=== PATIENT | male | born 1965 | race Caucasian/White ===

== ENCOUNTER 2018-04-02 22:40 | Emergency (ER) | payer MEDICARE, SELFPAY ==
[2018-04-02 22:41] VITALS: BP 182/87; PULSE 93; RESP 16; TEMP 35.9; O2SAT 96; BMI 34.0
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
[2018-04-02 23:31] LABS: Bedside Glucose 146 mg/dL (70-110)
[2018-04-02 23:36] LABS: Prothrombin Time (Protime)PT. 31.1 SECONDS (11.7-14.9)
[2018-04-03 00:06] VITALS: BP 160/91; PULSE 84; RESP 22; O2SAT 95
[2018-04-03 01:00] VITALS: BP 145/83; PULSE 78; RESP 17; O2SAT 97
== END 2018-04-03 01:32 | disposition home or self-care (01) ==
PROVIDERS: Emergency Provider Emergency Medicine; Family Provider Family Medicine; PCP Family Medicine
DX: S00.03XA Contusion of scalp, initial encounter (principal); V59.49XA Driver of pick-up truck or van injured in collision with other motor vehicles in traffic accident, initial encounter; Y92.410 Unspecified street and highway as the place of occurrence of the external cause; Y93.89 Activity, other specified; I25.10 Atherosclerotic heart disease of native coronary artery without angina pectoris; I25.2 Old myocardial infarction; I10 Essential (primary) hypertension; E11.9 Type 2 diabetes mellitus without complications; Z79.84 Long term (current) use of oral hypoglycemic drugs; Z79.01 Long term (current) use of anticoagulants; Z79.899 Other long term (current) drug therapy; Z72.0 Tobacco use
CPT/HCPCS: 70450; 82962; 85610; 99285; A4216

== ENCOUNTER 2018-07-13 12:16 | Emergency (ER) | payer MEDICARE, SELFPAY ==
[2018-07-13 12:17] VITALS: BP 188/89; PULSE 103; RESP 17; TEMP 36.3; O2SAT 96; BMI 46.0
--- NOTE | 2018-07-13 12:19 | RAD_ITS ---
STUDY: X-RAY - RIGHT SHOULDER REASON FOR EXAM: Male, 53 years old. Pain following a recent injury. TECHNIQUE: 4 view(s) of the shoulder. COMPARISON: None. FINDINGS: Normal glenohumeral articulation. There is hypertrophic osteoarthrosis of the acromioclavicular joint with inferior osseous spur formation. Normal acromion. Normal humeral head and visualized proximal humerus. The soft tissue structures are unremarkable. Normal visualized pulmonary apex. RAD/Shoulder min 2 Views IMPRESSION: Degenerative changes of the acromioclavicular joint. Electronically Signed: Juan Zavala MD at 13:00 EST Tel [phone], Service support ,
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
[2018-07-13 13:19] VITALS: BP 159/71
[2018-07-13] MEDS: Naproxen 500 MG Tablet PO (13:20)
== END 2018-07-13 13:27 | disposition home or self-care (01) ==
PROVIDERS: Emergency Provider Emergency Medicine; Family Provider Family Medicine; PCP Family Medicine
DX: S40.011A Contusion of right shoulder, initial encounter (principal); W01.0XXA Fall on same level from slipping, tripping and stumbling without subsequent striking against object, initial encounter; Y93.9 Activity, unspecified; E11.9 Type 2 diabetes mellitus without complications; Z79.84 Long term (current) use of oral hypoglycemic drugs; Z79.01 Long term (current) use of anticoagulants; Z79.899 Other long term (current) drug therapy; Z72.0 Tobacco use
CPT/HCPCS: 73030; 99283

== ENCOUNTER 2018-09-20 12:24 | Emergency (ER) | payer MEDICARE, SELFPAY ==
[2018-09-20] VITALS (8 sets, daily range): BP systolic 141–165; BP diastolic 76–115; PULSE 84–92; RESP 17–24; TEMP 36.7–37.1; O2SAT 92–99; BMI 45.2
--- NOTE | 2018-09-20 13:18 | EKG12_ITS ---
Test Reason : SOB Blood Pressure : / mmHG Vent. Rate : 089 BPM Atrial Rate : 089 BPM P-R Int : 144 ms QRS Dur : 096 ms QT Int : 358 ms P-R-T Axes : 051 103 031 degrees QTc Int : 435 ms Normal sinus rhythm with sinus arrhythmia Rightward axis Nonspecific ST and T wave abnormality Abnormal ECG Confirmed by ASHOK LOWERY, ADAM ([id number]), photograph editor ERMIAS LEMUS ([id number]) on 09/23/2018 3:24:49 PM Referred By: Confirmed By:ADAM PULIDO MD
--- NOTE | 2018-09-20 13:23 | ED.DCSUM_ITS ---
- ER Visit Summary Date of Service: 09/20/18 Chief Complaint: Cough and shortness of breath History of Present Illness: The patient is a 53 M states he had a prior CT but denies any stents or bypass. Patient has a history of diabetes, hypertension and COPD not on oxygen. He does have a history of DVT and PEs from factor V Leiden is currently on Coumadin. States that for the last 2 days he has had a cough of white phlegm. Diarrhea and subjective fever and chills. No documented temperature. No chest pain. Denies any hemoptysis. States this does not feel like 1 of his blood clots. Physical Examination: Middle-aged male no acute distress. Pulse ox 90% on room air no hypoxia when I am in the room and sat 90%. HEENT exam unremarkable. Smell tobacco on his breath. Neck nontender no JVD no lymphadenopathy. Lungs coarse breath sounds. Respiratory wheezing. No rales or rhonchi. Equal symmetrical. Diminished bilaterally. Heart regular rate and rhythm rate about 85 no murmur. Chest wall nontender. Abdomen soft obese and nontender. Normal bowel sounds no peritoneal signs. Extremities moves all 4. Calves nontender without edema or cords. Neurologically is awake alert with no focal motor deficits. Test Results: Chest x-ray 2 views shows chronic changes no acute process read by myself and radiologist. EKG sinus rhythm rate 89 with no acute signs of CT or ischemia. His white count 8. Hemoglobin of 15. Electrolytes potassium 3.0. Normal BUN, creatinine and gap. His INR subtherapeutic at 1.6. His troponin is normal. Emergency Department Course and Treatment: Patient with dyspnea most likely secondary to URI with exacerbation of COPD. Treated with aerosol treatments, IV Solu-Medrol and a cardiac workup will be done. Feet exam at 1551 patient is doing well. He has coughed up some sputum which is green to cloudy I will start him on an antibiotic for that. He is doing well after his aerosol treatment and IV Solu-Medrol. He feels comfortable being discharged home. He has appointment see his doctor tomorrow. Treatment Plan: Zithromax. Prednisone 40 mg a day. Uses inhalers. Stop smoking. Follow-up with his doctor. Also take his Coumadin as prescribed. Disposition: Charge Impression: Acute dyspnea secondary to acute bronchitis and COPD exacerbation Acute exacerbation COPD Subtherapeutic anticoagulation with an INR of 1.6 History of diabetes, hypertension and high cholesterol Anticoagulated on Coumadin secondary to factor V Leiden This note was generated with [employer] dictation software. It may contain incorrect words, spelling, and punctuation that were not noted in review of the chart prior to signing ED Disposition - Plan for ED Patient: Chief Complaint: Shortness of Breath Referrals: Yohan Seals MD [Primary Care Provider] -
[2018-09-20] MEDS: MethylPREDNISolone 125 MG/2 ML Vial IV (13:26)
[2018-09-20] MEDS: Ipratropium/Albuterol Sulfate 3 ML AMPUL.NEB INHALATION (13:26)
[2018-09-20] MEDS: Albuterol 2.5 MG/3 ML VIAL.NEB. INHALATION (13:26)
[2018-09-20 13:36] LABS: Absolute Lymphocyte Count 0.77 X10^3/ul (0.83-4.51); Absolute Neutrophil Count 6.6 X10^3/uL (2.0-7.7); Basophil# 0.04 X10^3/uL; Basophil% 0.4 % (0-1); Eosinophils% 1.1 % (0-5); Hematocrit 47.7 % (40-54); Hemoglobin 15.1 g/dl (13.0-16.5); Lymphocyte # 0.77 X10^3/ul (4.0); Lymphocyte % 8.6 % (19-41); Mean Corp Hgb Conc 31.7 g/gl (32-36); Mean Corpuscular Volume 85.2 fL (80-94); Mean Platelet Vol. 11.4 fl (6.2-12.0); Monocyte# 1.35 X10^3/uL; Monocyte% 15.2 % (0-10); Neutrophil # 6.64 X10^3/uL (2.7-7.7); Neutrophil % 74.6 % (47-70); Platelet Count 223 K/mm3 (150-450); RBC Distribution Width SD 50.3 fl (35.1-43.9); White Blood Count 8.9 K/mm3 (4.4-11.0)
[2018-09-20 13:38] LABS: POSITIVE COUNT NO; POSITIVE DIFFERENTIAL NO; POSITIVE MORPHOLOGY NO
[2018-09-20 13:39] LABS: International Normalized Ratio 1.6; Prothrombin Time (Protime)PT. 18.9 SECONDS (11.7-14.9)
--- NOTE | 2018-09-20 13:40 | RAD_ITS ---
STUDY: X-RAY CHEST REASON FOR EXAM: Male, 53 years old. Chest pain and shortness of breath. Cough. TECHNIQUE: PA and lateral views of the chest. COMPARISON: Comparison is made with prior study dated October 21, 2015. FINDINGS: EKG electrodes are seen. Hyperinflation. The lungs are clear. There is no demonstrated pleural abnormality. Normal size heart. Normal mediastinum and radha. There is prominence of the pulmonary hilar arteries without peripheral pulmonary vascular congestion, suggesting pulmonary hypertension. Normal visualized aortic arch and descending thoracic aorta. There are diffuse degenerative changes of the visualized thoracic spine. Normal visualized ribs, clavicles, and shoulders. There is no demonstrated abnormality of the visualized soft tissue structures of the upper abdomen. RAD/Chest PA and Lateral IMPRESSION: Hyperinflation. No acute abnormality is seen. Electronically Signed: Juan Zavala MD at 14:04 EST , Service support ,
[2018-09-20 13:51] LABS: Anion Gap 7 (5-15); BUN 13 mg/dL (7-18); BUN/Creat Ratio 15.8 RATIO (10-20); Calcium,Total 8.6 mg/dL (8.5-10.1); Chloride 99 mmol/L (98-107); Creatinine, Serum 0.82 mg/dL (0.70-1.30); EST Glomerular Filtration Rate 104 mL/min (>60); Est Glom Filt Rate - Afr Amer 126 mL/min (>60); Estimated Creatinine Clearance 113.04 ml/min; Glucose 177 mg/dL (74-106); Sodium Level 135 mmol/L (136-145)
--- NOTE | 2018-09-20 14:10 | ED.RN ---
PT O2 SAT TO 88 ON ROOM AIR. PT GIVEN NC AT 3L FOR INTERVENTION AND COMFORT. O2 SAT UP TO 96.
--- NOTE | 2018-09-20 14:53 | ED.DEP ---
ED Disposition - Plan for ED Patient: Disposition: Home or Assisted Living Chief Complaint: Shortness of Breath Instructions: ED COPD Flare Prescriptions: Azithromycin [Zithromax] 250 mg PO DAILY #4 tab Prednisone [Deltasone] 40 mg PO DAILY 7 Days tab Referrals: Yohan Seals MD [Primary Care Provider] - Additional Instructions: Zithromax 1 pill a day for 4 more days starting tomorrow. Prednisone 40 mg a day for 1 week. Absolutely stop smoking. Up with your doctor tomorrow. Have your INR rechecked because it was subtherapeutic today your Coumadin level is only 1.6. Take your normal Coumadin dose tonight.
[2018-09-20] MEDS: Azithromycin 250 MG Tablet 500 MG PO (15:08)
== END 2018-09-20 15:10 | disposition home or self-care (01) ==
PROVIDERS: Emergency Provider Emergency Medicine; Family Provider Family Medicine; PCP Family Medicine
DX: J44.1 Chronic obstructive pulmonary disease with (acute) exacerbation (principal); J20.9 Acute bronchitis, unspecified; J44.0 Chronic obstructive pulmonary disease with (acute) lower respiratory infection; D68.51 Activated protein C resistance; I10 Essential (primary) hypertension; E78.00 Pure hypercholesterolemia, unspecified; E11.9 Type 2 diabetes mellitus without complications; I25.2 Old myocardial infarction; Z86.718 Personal history of other venous thrombosis and embolism; Z86.711 Personal history of pulmonary embolism; Z79.01 Long term (current) use of anticoagulants; Z79.84 Long term (current) use of oral hypoglycemic drugs; Z79.899 Other long term (current) drug therapy; Z72.0 Tobacco use
CPT/HCPCS: 71046; 80048; 84484; 85025; 85610; 93005; 94640; 96374; 99285; A4216

== ENCOUNTER 2019-07-10 10:16 | Emergency (ER) | payer MEDICARE, SELFPAY ==
[2018-09-20 12:25] VITALS: BMI 45.2
[2019-07-10 10:17] VITALS: BP 149/113; PULSE 91; RESP 20; TEMP 36.4; O2SAT 96; BMI 47.5
--- NOTE | 2019-07-10 10:35 | ED.VIS.GEN ---
History of Present Illness Chief Complaint: Upper Extremity Injury Detail of Chief Complaint: Left third finger laceration Informant: Patient Onset: Today Current Severity: Moderate Maximum Severity: Moderate Narrative: Patient presents with a laceration to the distal aspect of his left third finger. He states his grinding wheel broke and cut him. He is left-hand dominant. He is unsure of his last tetanus update. He is on Coumadin but states his last INR was probably checked for 5 months ago. He has chronic pain in his left hand that is grossly unchanged from baseline. - Past Medical History (1) CAD (coronary artery disease) Status: Chronic Comment: Notes cardiac catheterization late without PCI needed and unclear possible history of ME. (2) COPD (chronic obstructive pulmonary disease) Status: Chronic (3) Chronic venous stasis Status: Chronic (4) DVT, lower extremity, recurrent Status: Chronic (5) Diabetes mellitus, type II Status: Chronic (6) GERD (gastroesophageal reflux disease) Status: Chronic (7) Hyperlipidemia Status: Chronic (8) Hypertension Status: Chronic (9) Hypothyroidism Status: Chronic Past Medical History - Allergies and Home Meds Allergies/Adverse Reactions: Allergies latex Allergy (Verified 07/10/19 10:17) Anaphylaxis zolmitriptan [From Zomig] Allergy (Verified 07/10/19 10:17) Other Primary Care Physician: Yohan Seals MD [Primary Care Provider] - Prior records reviewed: Yes Surgical History: - - Cardiac catheterization, R knee foreign body removal. Smoking Status: Current every day smoker Review of Systems General: Denies: Chills, Fever Eyes: Denies: Visual changes - bilaterally ENT: Denies: Bilateral ear pain Cardiovascular: Denies: Chest pain Respiratory: Denies: Dyspnea, Cough Gastrointestinal: Denies: Abdominal pain Musculoskeletal: Reports: Extremity Pain Skin: Reports: Wounds Neurological: Denies: Weakness, Parasthesia Physical Exam Vital Signs/Narrative: Vital Signs Temp Pulse Resp BP Pulse Ox 07/10/19 10:17 97.5 F L 91 20 H 149/113 H 96 Inital Vital Signs reviewed: Yes General: Well nourished, Well developed ENT: Moist mucous membranes Neck: Supple Cardiovascular: Regular rate, Regular rhythm Respiratory: No distress, CTA bilaterally Abdomen: Soft, Nontender Extremities: - - 2.5 cm flap laceration over the DIP joint of the left third finger. Full range of motion is noted. Normal sensation and cap refill distally. Skin: Trauma Neurological: Alert, Oriented x3, Normal Strength, Normal Sensation Psychological: Normal affect Diagnostic/Tx/Re-eval Impressions Finger X-Ray 07/10/19 10:47 IMPRESSION: Soft tissue swelling. Electronically Signed: Juan Zavala, at 11:10 EST , Service support , 07/10/19 10:47 Finger(s) Min 2 Views [RAD] Stat - Medical Decision Making After the patient has his INR drawn he now tells me that he has not taken his Coumadin in at least the last 4 weeks because he is been out of it. He has an appointment with his doctor on the to get a refill. INR is canceled. 3 cc 1% lidocaine is used and a digital block of the left third digit. Wound is cleansed and irrigated. 6 simple interrupted sutures of 5-0 nylon are placed with good approximation. Patient will follow-up in 1 week for suture removal. Procedures - Lacerations No standard instances Length: 0.98 in Depth: Sub Q Shape: Flap Laceration repair: Irrigated Number of Sutures/Haris: 6 - 5-0 nylon Suture Information: Simple, 5-0 ED Disposition - Plan for ED Patient: Disposition: Home or Assisted Living Diagnosis: Finger laceration Instructions: LACERATION, Hand Referrals: Yohan Seals MD [Primary Care Provider] - 7 Days for suture removal
--- NOTE | 2019-07-10 10:47 | RAD_ITS ---
STUDY: X-RAY - LEFT HAND, ATTENTION THIRD FINGER REASON FOR EXAM: Male, 54 years old. Laceration. TECHNIQUE: 3 view(s) of the finger were obtained. COMPARISON: None. FINDINGS: Normal metacarpal head. Normal metacarpophalangeal joint. Normal proximal phalanx. Normal middle phalanx. Normal distal phalanx. Normal proximal interphalangeal joint. Normal distal interphalangeal joint. Soft tissue swelling RAD/Finger(s) Min 2 Views IMPRESSION: Soft tissue swelling. Electronically Signed: Juan Zavala, at 11:10 EST , Service support ,
[2019-07-10] MEDS: Diphth,Pertuss(Acell),Tet Vac 0.5 ML Vial IM (10:57)
== END 2019-07-10 11:23 | disposition home or self-care (01) ==
PROVIDERS: Emergency Provider Emergency Medicine; Family Provider Family Medicine; PCP Family Medicine
DX: S61.213A Laceration without foreign body of left middle finger without damage to nail, initial encounter (principal); W26.8XXA Contact with other sharp object(s), not elsewhere classified, initial encounter; Y93.89 Activity, other specified; I25.10 Atherosclerotic heart disease of native coronary artery without angina pectoris; I10 Essential (primary) hypertension; E11.9 Type 2 diabetes mellitus without complications; E03.9 Hypothyroidism, unspecified; E78.5 Hyperlipidemia, unspecified; K21.9 Gastro-esophageal reflux disease without esophagitis; J44.9 Chronic obstructive pulmonary disease, unspecified; F17.200 Nicotine dependence, unspecified, uncomplicated; Z86.718 Personal history of other venous thrombosis and embolism; Z79.01 Long term (current) use of anticoagulants; Z79.84 Long term (current) use of oral hypoglycemic drugs; Z79.899 Other long term (current) drug therapy
CPT/HCPCS: 12001; 73140; 90471; 90715; 99284

== ENCOUNTER 2019-09-27 15:58 | Emergency (ER) | payer MEDICARE, MEDICAID, SELFPAY ==
[2019-09-27 15:59] VITALS: BP 166/107; PULSE 95; RESP 16; TEMP 36.7; O2SAT 97; BMI 46.0
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
--- NOTE | 2019-09-27 17:40 | RAD_ITS ---
STUDY: X-RAY - RIGHT ANKLE REASON FOR EXAM: Male, 54 years old. Pain TECHNIQUE: 3 view(s) of the ankle. COMPARISON: None. FINDINGS: There is no evidence of fracture or dislocation. Plantar calcaneal spurring is present. There are no radiodense foreign bodies. Soft tissue swelling is present. RAD/Ankle min 3 Views IMPRESSION: No fracture or dislocation. Plantar calcaneal spurring. Soft tissue swelling. Electronically Signed: Imer Eaton, at 18:02 EST Tel , Service support ,
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
== END 2019-09-27 19:05 | disposition home or self-care (01) ==
PROVIDERS: Emergency Provider Emergency Medicine; PCP Family Medicine
DX: S93.401A Sprain of unspecified ligament of right ankle, initial encounter (principal); S70.01XA Contusion of right hip, initial encounter; V43.52XA Car driver injured in collision with other type car in traffic accident, initial encounter; Y93.89 Activity, other specified; I10 Essential (primary) hypertension; E11.9 Type 2 diabetes mellitus without complications; Z79.84 Long term (current) use of oral hypoglycemic drugs; Z79.01 Long term (current) use of anticoagulants; Z79.899 Other long term (current) drug therapy; Z72.0 Tobacco use
CPT/HCPCS: 73502; 73610; 99283

== ENCOUNTER 2020-03-27 16:28 | Inpatient (IN) | payer MEDICARE, MEDICAID, SELFPAY ==
[2020-03-27] VITALS (7 sets, daily range): BP systolic 159–206; BP diastolic 85–132; PULSE 70–77; RESP 18–28; TEMP 36.6–36.7; O2SAT 94–98; BMI 48.0
--- NOTE | 2020-03-27 18:10 | EKG12_ITS ---
Test Reason : CP Blood Pressure : / mmHG Vent. Rate : 062 BPM Atrial Rate : 062 BPM P-R Int : 176 ms QRS Dur : 098 ms QT Int : 416 ms P-R-T Axes : 061 083 047 degrees QTc Int : 422 ms Sinus rhythm with Premature atrial complexes Nonspecific T wave abnormality Abnormal ECG Confirmed by ANABEL LOWERY, ALIS ([id number]), videotape editor BRANDY BLACKMAN ([id number]) on 04/01/2020 9:30:45 AM Referred By: Michael No Confirmed By:JOSEPH LITTLE MD
--- NOTE | 2020-03-27 18:12 | ED.DCSUM_ITS ---
History of Present Illness Chief Complaint: Edema Detail of Chief Complaint: R LE pain and swelling, dyspnea Informant: Patient Onset: Days Context: Sudden Onset Timing: Continuous Quality: Pain and swelling as well as dyspnea Location: Right lower extremity and respiratory Current Severity: Mild Maximum Severity: Moderate Worsened by: Activity Relieved by: Nothing Associated Symptoms: Upper respiratory symptoms, prior history of DVT Narrative: Patient is a 55-year-old male with a history of obstructive sleep apnea who has not been compliant with use of his machine who presents because of right leg swelling, pain with prior history DVT, shortness of breath with history of COPD. He does report rhinorrhea and cough. He states he does not wear a mask. He has not been in any public gatherings. History is limited because he is somnolent. Concerned he may have CO2 retention. Prior similar symptoms: No Recent Illness/Hospitalization: No - Past Medical History (1) CAD (coronary artery disease) Status: Chronic Comment: Notes cardiac catheterization late without PCI needed and unclear possible history of [place]. (2) COPD (chronic obstructive pulmonary disease) Status: Chronic (3) Chronic venous stasis Status: Chronic (4) DVT, lower extremity, recurrent Status: Chronic (5) Diabetes mellitus, type II Status: Chronic (6) GERD (gastroesophageal reflux disease) Status: Chronic (7) Hyperlipidemia Status: Chronic (8) Hypertension Status: Chronic (9) Hypothyroidism Status: Chronic (10) Morbid obesity with BMI of 40.0-44.9, adult Status: Chronic (11) LEONEL (obstructive sleep apnea) Status: Chronic (12) PVD (peripheral vascular disease) Status: Chronic (13) Tobacco use Status: Chronic Past Medical History - Allergies and Home Meds Allergies/Adverse Reactions: Allergies latex Allergy (Verified 07/10/19 10:17) Anaphylaxis zolmitriptan [From Zomig] Allergy (Verified 07/10/19 10:17) Other Primary Care Physician: Yohan Seals MD [Primary Care Provider] - Prior records reviewed: Yes Surgical History: - - Cardiac catheterization, R knee foreign body removal. Lives: Alone Smoking Status: Heavy Smoker (>10/day) Alcohol: None Drugs: None Review of Systems ROS: Unable to Obtain - History is limited because patient is somnolent. He has to have repeated verbal or tactile stimulus to keep his eyes open. 3/review of system is limited to what is documented because he is somnolence. General: Reports: Malaise Cardiovascular: Reports: Chest pain, Palpitations Respiratory: Reports: Dyspnea, Cough, Dyspnea on exertion, Orthopnea Gastrointestinal: Reports: Nausea Musculoskeletal: Reports: Swelling, Extremity Pain Neurological: Reports: Headache - Bifrontal Physical Exam Vital Signs/Narrative: Vital Signs Temp Pulse Resp BP Pulse Ox 03/27/20 16:30 97.8 F 77 28 H 206/132 H 94 03/27/20 16:29 97.8 F 75 28 H 206/132 H 94 Inital Vital Signs reviewed: Yes General: Well nourished, Well developed, Obese, - - Patient is tachypneic and somnolent Head: Normocephalic, Atraumatic Eyes: Perrl, EOMI, Scleral icterus. Negative for: Pale conjunctiva ENT: No rhinorrhea, TM's clear, Nasal congestion, Sinus tenderness - Bifrontal Neck: Supple, Nontender Cardiovascular: Regular rate, Regular rhythm, No murmurs, Normal S1, Normal S2 Respiratory: Wheezing, Diminished, Decreased Air Movement Abdomen: Soft, Nontender, Nondistended, Normal bowel sounds Rectal: Deferred Back: Nontender Extremities: Tenderness, Edema, - - She has venous stasis bilateral. The right lower extremity is markedly swollen compared to the right and he has tenderness along the deep venous system. With prior history of DVT will obtain venous duplex study to rule out DVT. Skin: Normal color, No rash, No Trauma. Negative for: Cyanosis, Diaphoresis, Jaundice Neurological: Oriented x3, Cranial nerves II-XII grossly intact, Normal Strength, Normal Sensation. Negative for: Alert, Normal Gait Psychological: Normal affect Diagnostic/Tx/Re-eval Chest X-Ray - ED: 1 View, Read by ED Physician, Normal, Heart, Mediastinum, Bony Structures, No Acute Disease, Chronic Changes Impressions Venous Duplex 03/27/20 18:14 IMPRESSION: No acute occlusive DVT is detected. Likely partial nonocclusive posterior tibial vein thrombus. Electronically Signed: Gallo Soto MD at 20:57 EDT Tel , Service support , Chest X-Ray 03/27/20 18:35 IMPRESSION: No acute cardiopulmonary disease or major interval change. Electronically Signed: Tristian Woods DO at 19:22 EDT Tel [phone], Service support , Chest CTA 03/27/20 20:10 IMPRESSION: Pulmonary emboli are present in the right middle lobe and left upper lobe arteries. Electronically Signed: Gallo Soto MD at 21:54 EDT Tel , Service support , 03/27/20 18:35 Chest 1 View (Portable) [RAD] Stat 03/27/20 20:10 CTA Chest W/WO Contrast [CT] Stat Laboratory Results 03/27/20 03/27/20 03/27/20 18:20 18:42 18:43 WBC RBC Hgb Hct MCV MCH MCHC RDW Std Deviation RDW Coeff of Vin Plt Count MPV Immature Gran % (Auto) Neut % (Auto) Lymph % (Auto) [place] % (Auto) Eos % (Auto) Baso % (Auto) Absolute Neuts (auto) Absolute Lymphs (auto) Nucleated RBC % PT INR APTT D-Dimer Quant (PE/DVT) Specimen Type ART Sample Site R Radial pH 7.41 Bicarbonate Actual 30.1 H Total CO2 32 Base Excess 6 H O2 Saturation 90 L ABG pCO2 47.6 H ABG pO2 60 L Dilshad Test Positive O2 Delivery Device Room Air Sodium 138 Potassium 4.8 Chloride 106 Carbon Dioxide 29.0 Anion Gap 3 L BUN 17 Creatinine 0.82 Estim Creat Clear Calc 110.41 Est GFR (MDRD) Af Amer 126 Est GFR (MDRD) Non-Af 104 BUN/Creatinine Ratio 20.9 H Glucose 160 H Lactic Acid Calcium 8.4 L Total Bilirubin 0.40 AST 30 ALT 27 Alkaline Phosphatase 106 B-Natriuretic Peptide Total Protein 6.9 Albumin 3.0 L Globulin 3.9 Albumin/Globulin Ratio 0.8 L COVID-19 (JORI) Negative POC Glucose 03/27/20 03/27/20 03/27/20 18:57 18:57 19:05 WBC 12.9 H RBC 5.22 Hgb 15.3 Hct 47.6 MCV 91.2 MCH 29.3 MCHC 32.1 RDW Std Deviation 48.7 H RDW Coeff of Vin 14.6 Plt Count 227 MPV 10.8 Immature Gran % (Auto) 0.200 Neut % (Auto) 70.6 H Lymph % (Auto) 16.6 L [place] % (Auto) 9.0 Eos % (Auto) 2.9 Baso % (Auto) 0.7 Absolute Neuts (auto) 9.1 H Absolute Lymphs (auto) 2.14 Nucleated RBC % 0 PT 17.1 H INR 1.4 APTT 27.6 D-Dimer Quant (PE/DVT) 1.54 H* Specimen Type Sample Site pH Bicarbonate Actual Total CO2 Base Excess O2 Saturation ABG pCO2 ABG pO2 Dilshad Test O2 Delivery Device Sodium Potassium Chloride Carbon Dioxide Anion Gap BUN Creatinine Estim Creat Clear Calc Est GFR (MDRD) Af Amer Est GFR (MDRD) Non-Af BUN/Creatinine Ratio Glucose Lactic Acid Calcium Total Bilirubin AST ALT Alkaline Phosphatase B-Natriuretic Peptide 39.0 Total Protein Albumin Globulin Albumin/Globulin Ratio COVID-19 (JORI) POC Glucose 03/27/20 03/27/20 19:05 20:11 WBC RBC Hgb Hct MCV MCH MCHC RDW Std Deviation RDW Coeff of Vin Plt Count MPV Immature Gran % (Auto) Neut % (Auto) Lymph % (Auto) [place] % (Auto) Eos % (Auto) Baso % (Auto) Absolute Neuts (auto) Absolute Lymphs (auto) Nucleated RBC % PT INR APTT D-Dimer Quant (PE/DVT) Specimen Type Sample Site pH Bicarbonate Actual Total CO2 Base Excess O2 Saturation ABG pCO2 ABG pO2 Dilshad Test O2 Delivery Device Sodium Potassium Chloride Carbon Dioxide Anion Gap BUN Creatinine Estim Creat Clear Calc Est GFR (MDRD) Af Amer Est GFR (MDRD) Non-Af BUN/Creatinine Ratio Glucose Lactic Acid 1.4 Calcium Total Bilirubin AST ALT Alkaline Phosphatase B-Natriuretic Peptide Total Protein Albumin Globulin Albumin/Globulin Ratio COVID-19 (JORI) POC Glucose 210 H Discuss treatment with hospitalist i.e. heparin versus Eliquis versus Lovenox and Coumadin. Since patient sat is only 90% at rest recommend hospitalization. Decision was made to treat with Eliquis after reviewing patient's past medical history. - EKG Initial EKG Interpretation: Sinus Rhythm - Sinus rhythm with a ventricular rate of 62. There are premature atrial complexes noted. MI interval is 176 ms. QRS duration 98 ms. QT duration 416 ms. [place] is normal. There is motion artifact which the computer is reading as an ossific T wave abnormality. - Medical Decision Making With prior history of DVT unilateral leg swelling and pain along the distribution deep venous system venous duplex study was obtained to rule out DVT. Because patient is somnolent with history obstructive sleep apnea and noncompliance concern he has CO2 retention. He does have a history of COPD with bilateral wheezing. He was treated with DuoNeb and albuterol. Furthermore x- ray was obtained to rule out pneumonia versus other cause. There is concern for heart failure as well. Patient's chest x-ray is unremarkable. With elevated d-dimer CTA was obtained to evaluate for pulmonary embolus. [place] test was performed and negative. White count is elevated. He does not have evidence of hypercapnia or acute respiratory failure due to hypercapnia. Oxygenation is marginal with a PaO2 of 60 and saturation 90%. When patient was reevaluated son was in the room. Patient's son states he does fall asleep easily. Suspect this is due to his obstructive sleep apnea and noncompliance. - Critical Care Time Critical care time (excluding procedures): 30-74 minutes - 32 minutes, Discussing w/Patient &/or Family/Heavy Truck Mechanic, Discussing w/Consultants, Arranging Admission or Transfer ED Disposition - Plan for ED Patient: Disposition: Home or Assisted Living Diagnosis: Bilateral pulmonary embolism, Somnolence, Hypoxia, COPD exacerbation Referrals: Yohan Seals MD [Primary Care Provider] -
--- NOTE | 2020-03-27 18:14 | US_ITS ---
STUDY: VENOUS DOPPLER ULTRASOUND - RIGHT LOWER EXTREMITY REASON FOR EXAM: Male, 55 years old. RT LEG SWELLING TECHNIQUE: Ultrasound evaluation of the deep vein system to include leblanc-scale imaging and compression was performed. Leblanc-scale imaging and Doppler sonographic evaluation, including duplex spectral analysis and qualitative color flow sonography, was performed. COMPARISON: None. FINDINGS: Common Femoral Vein: Normal compression, spontaneity and augmentation. Normal color Doppler. Common Femoral Vein/Greater Saphenous Junction: Normal compression, spontaneity and augmentation. Normal color Doppler. Deep Femoral Vein: Normal compression, spontaneity and augmentation. Normal color Doppler. Femoral Proximal: Normal compression, spontaneity and augmentation. Normal color Doppler. Femoral Middle: Normal compression, spontaneity and augmentation. Normal color Doppler. Femoral Distal: Normal compression, spontaneity and augmentation. Normal color Doppler. Popliteal Vein: Normal compression, spontaneity and augmentation. Normal color Doppler. Posterior Tibial Vein: Noncompressible, although color flow is maintained. Peroneal Vein: Normal compression, spontaneity and augmentation. Normal color Doppler. US/Venous Duplex Imag/Limited/Uni IMPRESSION: No acute occlusive DVT is detected. Likely partial nonocclusive posterior tibial vein thrombus. Electronically Signed: Gallo Soto MD at 20:57 EDT Tel , Service support ,
[2020-03-27] MEDS: Albuterol 2.5 MG/3 ML VIAL.NEB. INHALATION (18:25)
[2020-03-27] MEDS: Ipratropium/Albuterol Sulfate 3 ML AMPUL.NEB INHALATION (18:25)
--- NOTE | 2020-03-27 18:35 | RAD_ITS ---
STUDY: X-RAY CHEST REASON FOR EXAM: Male, 55 years old. Bilateral lower extremity edema. Question DVT. History of DVT and COPD. Complaint of increasing shortness of breath. TECHNIQUE: Single AP portable view of the chest. COMPARISON: 09/20/2018. FINDINGS: The lungs are well expanded. There is no acute infiltrate or mass. There is no demonstrated pleural abnormality. Normal size heart. Normal mediastinum and radha. Normal visualized pulmonary arteries. Normal visualized aortic arch and descending thoracic aorta. The thoracic spine is obscured by the mediastinum. There is degenerative osteoarthritis of the bilateral shoulders. There is no demonstrated abnormality of the visualized soft tissue structures of the upper abdomen. RAD/Chest 1 View (Portable) IMPRESSION: No acute cardiopulmonary disease or major interval change. Electronically Signed: Tristian Woods DO at 19:22 EDT Tel [phone], Service support ,
[2020-03-27] MEDS: 0.9% Normal Saline 1,000 ML 150 ML IV (18:48)
[2020-03-27] MEDS: Ondansetron 4 MG/2 ML Vial IV (18:48)
[2020-03-27 19:18] LABS: ALB/GLOB Ratio 0.8 RATIO (0.9-2.4); AST(SGOT) 30 U/L (15-37); Alanine Aminotransfer ALT/SGPT 27 U/L (16-61); Alkaline Phosphatase 106 U/L (45-117); Anion Gap 3 (5-15); BUN 17 mg/dL (7-18); BUN/Creat Ratio 20.9 RATIO (10-20); Calcium,Total 8.4 mg/dL (8.5-10.1); Chloride 106 mmol/L (98-107); Creatinine, Serum 0.82 mg/dL (0.70-1.30); EST Glomerular Filtration Rate 104 mL/min (>60); Est Glom Filt Rate - Afr Amer 126 mL/min (>60); Estimated Creatinine Clearance 110.41 ml/min; Globulin 3.9 g/dL (2.2-4.2); Glucose 160 mg/dL (74-106); Potassium 4.8 mmol/L (3.5-5.1); Protein, Total 6.9 g/dL (6.4-8.2); Sodium Level 138 mmol/L (136-145)
[2020-03-27 19:21] LABS: Absolute Lymphocyte Count 2.14 X10^3/uL (0.83-4.51); Absolute Neutrophil Count 9.1 X10^3/uL (2.0-7.7); Basophil# 0.09 X10^3/uL; Basophil% 0.7 % (0-1); Eosinophil# 0.37 X10^3/uL; Eosinophils% 2.9 % (0-5); Hematocrit 47.6 % (40-54); Hemoglobin 15.3 g/dL (13.0-16.5); Lymphocyte # 2.14 X10^3/ul (4.0); Lymphocyte % 16.6 % (19-41); Mean Corp Hgb Conc 32.1 g/dL (32-36); Mean Corpuscular Hgb 29.3 pg (27.0-32.0); Mean Corpuscular Volume 91.2 fL (80-94); Mean Platelet Vol. 10.8 fl (6.2-12.0); Monocyte# 1.17 X10^3/uL; NRBC Flagged by Analyzer 0 % (0-5); Neutrophil # 9.14 X10^3/uL (2.7-7.7); Neutrophil % 70.6 % (47-70); Platelet Count 227 K/mm3 (150-450); RBC Distribution Width CV 14.6 % (11.6-14.6); RBC Distribution Width SD 48.7 fl (35.1-43.9); Red Blood Count 5.22 M/mm3 (4.6-6.2); White Blood Count 12.9 K/mm3 (4.4-11.0)
[2020-03-27 19:31] LABS: Allen Test Positive; Base Excess 6 mmol/L (-2 to +2); Bicarbonate 30.1 mmol/L (22-26); Blood Gas Specimen Type ART; O2 Delivery Device Room Air; PO2 60 mmHG (75-100); SITE R Radial; SO2 90 % (95-99); Total Carbon Dioxide 32 mmol/L; pCO2 47.6 mmHg (35-45); pH 7.41 (7.35-7.45)
[2020-03-27 19:47] LABS: International Normalized Ratio 1.4; Prothrombin Time (Protime)PT. 17.1 SECONDS (11.7-14.9)
[2020-03-27 19:48] LABS: Partial Thromboplast Time 27.6 Seconds (24.1-36.2)
[2020-03-27 19:52] LABS: Lactic Acid 1.4 mmol/L (0.4-1.9)
[2020-03-27 19:57] LABS: D-Dimer Quantitative (DVT/PE) 1.54 FEU/ug/m (0.27-0.49)
[2020-03-27 20:02] LABS: Probe Check PASS; Specimen Processing Control PASS
--- NOTE | 2020-03-27 20:10 | CT_ITS ---
We are attempting to reach an attending provider to discuss findings. An addendum with communication details will be sent when the communication is complete. STUDY: CTA CHEST REASON FOR EXAM: Male, 55 years old. CURRENT DVT''S, INCREASED SOB, COPD, HX PE IN PAST, HI, HTN, ASTHMA, DIAB RADIATION DOSAGE (If Supplied By Facility): CTDIvol = ( 17.42 ) mGy, DLP = ( 637.21 ) mGycm TECHNIQUE: The examination was performed with the intravenous administration of 100ML ISOVUE 370. Post-processing of the angiographic images was performed, with multiplanar reformation and 3D reconstruction. Individualized dose optimization techniques were used for this CT. COMPARISON: 04/07/2012 FINDINGS: Pulmonary emboli are present in the right middle lobe and left upper lobe arteries. Normal thoracic aorta and visualized great vessels. There is no demonstrated aortic dissection. Normal heart and pericardium. Normal mediastinum. Normal hilar regions. Normal visualized trachea and bronchi. Pulmonary emphysema. Normal pleura. Normal chest wall structures. There are degenerative changes of thoracic spine. Normal visualized upper abdomen. CT/CTA Chest W/WO Contrast IMPRESSION: Pulmonary emboli are present in the right middle lobe and left upper lobe arteries. Electronically Signed: Gallo Soto MD at 21:54 EDT Tel , Service support ,
[2020-03-27 20:15] LABS: Bedside Glucose 210 mg/dL (70-110)
--- NOTE | 2020-03-27 22:14 | PCM.HP.STD ---
Problem List (1) Bilateral pulmonary embolism Status: Acute (2) Hypoxia Status: Acute (3) COPD exacerbation Status: Acute (4) Diabetes mellitus, type II Status: Chronic (5) Tobacco use Status: Chronic (6) COPD (chronic obstructive pulmonary disease) Status: Chronic (7) CAD (coronary artery disease) Status: Chronic Comment: Notes cardiac catheterization late without PCI needed and unclear possible history of [place]. (8) LEONEL (obstructive sleep apnea) Status: Chronic (9) Morbid obesity with BMI of 40.0-44.9, adult Status: Chronic (10) Hyperlipidemia Status: Chronic (11) Hypothyroidism Status: Chronic (12) DVT, lower extremity, recurrent Status: Chronic (13) Chronic venous stasis Status: Chronic (14) PVD (peripheral vascular disease) Status: Chronic (15) GERD (gastroesophageal reflux disease) Status: Chronic (16) Hypertension Status: Chronic History of Present Illness Date of Admission: 03/27/20 Chief Complaint: right leg swelling The patient is a 55 year old M with a significant tree of COPD; obstructive sleep apnea; hypertension; factor V Leiden deficiency; right leg DVT and pulmonary embolus who presents to the emergency department with increased persistent swelling of his right leg x3 days. Although typically his legs swell and goes down his recent leg swelling is persistent. Associated with his symptoms is increased shortness of breath above his baseline. Also patient has been wheezing. Venous Dopplers at the emergency department did not show any acute occlusive DVT. However it showed a partial occlusive posterior tibial vein thrombus. Chest CTA showed bilateral PE. Of note patient was on home Coumadin. Reportedly on the day of presentation he took his Coumadin. However he reported that recently he ran out of his Coumadin. Past Medical History Past Medical History (Chronic Problems): Chronic Problems Diabetes mellitus, type II (Chronic) Tobacco use (Chronic) COPD (chronic obstructive pulmonary disease) (Chronic) CAD (coronary artery disease) (Chronic) Notes cardiac catheterization late without PCI needed and unclear possible history of [place]. LEONEL (obstructive sleep apnea) (Chronic) Morbid obesity with BMI of 40.0-44.9, adult (Chronic) Hyperlipidemia (Chronic) Hypothyroidism (Chronic) DVT, lower extremity, recurrent (Chronic) Chronic venous stasis (Chronic) PVD (peripheral vascular disease) (Chronic) GERD (gastroesophageal reflux disease) (Chronic) Hypertension (Chronic) Allergies latex Allergy (Verified 07/10/19 10:17) Anaphylaxis zolmitriptan [From Zomig] Allergy (Verified 07/10/19 10:17) Other Home Medications: Ambulatory Orders Medication Instructions Recorded Albuterol Inhaler [Ventolin Hfa] 1 puff INHALATION Q4H PRN PRN 11/29/13 Duloxetine Hcl [Cymbalta] 60 mg PO BID 11/29/13 Gabapentin [Neurontin] 300 mg PO QHS 11/29/13 Lisinopril [Zestril] 20 mg PO DAILY 11/29/13 Omeprazole [Prilosec] 40 mg PO DAILY 11/29/13 Warfarin [Coumadin] 10 mg PO DAILY 11/29/13 metFORMIN HCl [Glucophage] 500 mg PO DAILY 11/29/13 Albuterol Aerosols [Ventolin 2.5 mg INHALATION Q2H PRN PRN #1 11/30/13 Aerosols] box Levothyroxine [Synthroid] 175 mcg PO DAILY@0600 07/17/15 Budesonide/Formoterol 80-4.5 2 puff INHALATION BID 04/02/18 [Symbicort 80-4.5 Mcg Inhaler] Atorvastatin Calcium [Lipitor] 10 mg PO QHS 03/27/20 Meclizine HCl 25 mg PO DAILY 03/27/20 Meloxicam [Mobic] 15 mg PO DAILY 03/27/20 Warfarin [Coumadin ([facility])] 15 mg PO DAILY 03/27/20 Surgical History: - - Cardiac catheterization, R knee foreign body removal. Psychiatric History: No pertinent psych hx Lives: Alone Smoking Status: Heavy Smoker (>10/day) Tobacco Use: Cigars Alcohol: None Drugs: None - *Family History Maternal History Items: Cancer Paternal History Items: Diabetes, Heart Disease, Hypertension Review of Systems Constitutional: Denies: Chills, Fever, Weight Change HEENT: Denies: Head Aches, Sinus Congestion, Sinus Drainage Cardiovascular: Reports: Edema. Denies: Chest Pain, Palpitations Respiratory: Reports: Shortness of Breath, Wheezing. Denies: Cough, Shortness of breath at rest, Sputum production Gastrointestinal: Denies: Abdominal Pain, Nausea, Vomiting Genitourinary: Denies: Dysuria Musculoskeletal: Denies: Joint Pain, Joint Tenderness Skin: Denies: Rash, Wounds Neurological: Denies: Numbness, Tingling, Focal weakness Psychiatric: Denies: Anxiety, Depression, Homicidal Ideations, Suicidal Ideations Hematologic/ Lymphatic: Denies: Easy Bruising, Easy Bleeding VTE Information - Inpt Only VTE Present on Admission: Yes VTE Mechan Device Prophylaxis: None VTE Pharm Prophylaxis ordered?: No Reason prophylaxis not ordered:: Treatment Not Indicated - With acute PE and posterior tibial vein thrombosis. Started on Eliquis. Patient Problems: Active and Suspected Problems Bilateral pulmonary embolism (Acute) Hypoxia (Acute) COPD exacerbation (Acute) - Physical Exam Vitals/I&O's: Vital Signs Temp Pulse Resp BP Pulse Ox 97.8 F 71 21 H 159/112 H 94 03/27/20 16:30 03/27/20 19:58 03/27/20 19:58 03/27/20 19:58 03/27/20 19:58 Oxygen Delivery Method Room Air Weight: 160.8 kg Body Mass Index (BMI) 48.0 Finger Stick Blood Glucose 210 General: Alert, Oriented x3, Cooperative HEENT: Atraumatic, PERRLA, EOMI, Normocephalic Neck: Supple, Trachea Midline Lungs: No rales, Wheezes Cardiovascular: Regular rate, Regular Rhythm, Normal S1, Normal S2, No murmurs Abdomen: Bowel Sounds Present, Soft, Non Tender Extremities: Capillary Refill Less than 3 Seconds, Edema - Bilateral legs: right leg worse than left leg Skin: No rashes, No breakdown Musculoskeletal: No Tenderness to Palpation of Joints or Extremities Neurological: Cranial nerves II-XII grossly intact Psych/Mental Status: Normal Affect, Appropriate Laboratory Results 03/27/20 18:20: COVID-19 (JORI) Negative 03/27/20 18:42: Specimen Type ART, Sample Site R Radial, pH 7.41, Bicarbonate Actual 30.1 H, Total CO2 32, Base Excess 6 H, O2 Saturation 90 L, ABG pCO2 47.6 H, ABG pO2 60 L, Dilshad Test Positive, O2 Delivery Device Room Air 03/27/20 18:43: Sodium 138, Potassium 4.8, Chloride 106, Carbon Dioxide 29.0, Anion Gap 3 L, BUN 17, Creatinine 0.82, Estim Creat Clear Calc 110.41, Est GFR (MDRD) Af Amer 126, Est GFR (MDRD) Non-Af 104, BUN/Creatinine Ratio 20.9 H, Glucose 160 H, Calcium 8.4 L, Total Bilirubin 0.40, AST 30, ALT 27, Alkaline Phosphatase 106, Total Protein 6.9, Albumin 3.0 L, Globulin 3.9, Albumin/Globulin Ratio 0.8 L 03/27/20 18:57: WBC 12.9 H, RBC 5.22, Hgb 15.3, Hct 47.6, MCV 91.2, MCH 29.3, MCHC 32.1, RDW Std Deviation 48.7 H, RDW Coeff of Vin 14.6, Plt Count 227, MPV 10.8, Immature Gran % (Auto) 0.200, Neut % (Auto) 70.6 H, Lymph % (Auto) 16.6 L, [place] % (Auto) 9.0, Eos % (Auto) 2.9, Baso % (Auto) 0.7, Absolute Neuts (auto) 9.1 H, Absolute Lymphs (auto) 2.14, Nucleated RBC % 0 03/27/20 18:57: B-Natriuretic Peptide 39.0 03/27/20 19:05: PT 17.1 H, INR 1.4, APTT 27.6, D-Dimer Quant (PE/DVT) 1.54 H* 03/27/20 19:05: Lactic Acid 1.4 03/27/20 20:11: POC Glucose 210 H Current Medications Sodium Chloride () 1,000 mls @ 150 mls/hr IV .[id number] [facility] Last Admin: 03/27/20 18:48 Dose: 150 mls/hr Documented by: Assessment/Plan All Active Problems Bilateral pulmonary embolism (Acute) Hypoxia (Acute) COPD exacerbation (Acute) The patient is a 55 year old M with a significant tree of COPD; obstructive sleep apnea; hypertension; factor V Leiden deficiency; right leg DVT and pulmonary embolus who presents emergency department with increased persistent swelling of his right leg x3 days; and found to have partial occlusive posterior tibial vein thrombus; and bilateral pulmonary embolism; and also with acute exacerbation of COPD.. Bilateral pulmonary embolism; and posterior tibial vein thrombus Patient on home Coumadin. INR was subtherapeutic on presentation. Echo secondary to noncompliance. Started on Eliquis at emergency department and continued. We will get an echocardiogram. COPD exacerbation CXR independently reviewed confirms no acute cardiopulmonary process. Scheduled DuoNeb Albuterol as needed Solu-Medrol 125 mg given at emergency department and continued at 40 mg every 8 hours. Azithromycin ordered. Oxygen as needed Monitor BMP and CBC Obstructive Sleep apnea Reportedly patient was on home CPAP/BiPAP. He reports that his equipment ''. BiPAP ordered while inpatient Neuropathy Cymbalta and gabapentin continued Hypothyroidism Synthroid continued Hypertension On presentation blood pressure was not within goal Lisinopril continued Trend blood pressure and adjust blood pressure medications. DVT prophylaxis Not indicated since patient's has acute PE and has been started on Eliquis. Inpatient E&M: [id number] Init Hosp L3
[2020-03-27] MEDS: MethylPREDNISolone 125 MG/2 ML Vial IV (23:11)
[2020-03-27] MEDS: APIXABAN 5 MG TABLET 10 MG PO (23:11)
[2020-03-28] VITALS (15 sets, daily range): BP systolic 149–168; BP diastolic 72–105; PULSE 70–103; RESP 12–18; TEMP 36.6–36.9; O2SAT 88–96; BMI 47.9
--- NOTE | 2020-03-28 00:23 | ECHOCS_ITS ---
Reason For Study: Pulmonary Embolism Procedure This was a 2D Doppler, Color Flow transthoracic echocardiogram. Contrast injection was performed. The study was technically difficult. Exam performed portable in patient room. Left Ventricle Normal LV size. Left ventricular systolic function is hyperdynamic. The estimated ejection fraction is 75 %. No evidence for diastolic dysfunction. No regional wall motion abnormalities noted. Right Ventricle Normal RV size. Normal systolic function. Atria Normal left atrium. Normal right atrium. No doppler evidence for ASD. Mitral Valve There is no mitral valve stenosis. No mitral valve insufficiency. Tricuspid Valve There is no tricuspid stenosis. Unable to estimate RV systolic pressure due to inadequate jet, pulmonary artery pressure probably normal. Aortic Valve Not very well visualized. Probably trileaflet. There is no aortic stenosis. No aortic valve insufficiency. Pulmonic Valve There is no pulmonic valvular stenosis. No pulmonic valve insufficiency. Great Vessels Normal aortic root. Pericardium/Pleural No pericardial effusion. Medication Diluted definity 3ml given slow IV push to enhance endocardial definition. MMode/2D Measurements & Calculations LVIDd: 6.1 cm IVSd: 1.4 cm Ao root diam: 3.1 cm LVIDs: 2.8 cm LVPWd: 1.3 cm RVDd: 4.4 cm FS: 54.4 % LAV(MOD-bp): 67.7 ml LA A4 area: 23.4 cm2 RA A4 area: 12.6 cm2 LAV(MOD-bp) Indexed: 25.0 ml/m2 LAV(MOD-sp2): 54.5 ml LAV(MOD-sp4): 66.1 ml Doppler Measurements & Calculations MV E max reagan: 67.0 cm/sec Lat Peak E' Reagan: 7.9 cm/sec Med Peak E' Reagan: 5.5 cm/sec MV A max reagan: 94.3 cm/sec E/E' lat: 8.4 E/E' med: 12.2 MV E/A: 0.71 Ao V2 max: 159.5 cm/sec LV V1 max: 126.9 cm/sec PA V2 max: 109.5 cm/sec Ao max P.2 mmHg LV V1 max P.4 mmHg Ao V2 mean: 112.5 cm/sec Ao mean P.6 mmHg Ao V2 VTI: 29.7 cm Interpretation Summary The estimated ejection fraction is 75 %. No evidence for diastolic dysfunction. Ordering Physician: Yohan Seals Referring Physician: Michael No Performed By: Glenda Borges RDCS, RVT
[2020-03-28] MEDS: 0.9% Saline Lock 10 ML Syringe IV ×3 (00:56→14:54)
[2020-03-28] MEDS: Ipratropium/Albuterol Sulfate 3 ML AMPUL.NEB INHALATION ×4 (04:30→15:53)
[2020-03-28 05:41] LABS: Absolute Lymphocyte Count 0.74 X10^3/uL (0.83-4.51); Absolute Neutrophil Count 13.4 X10^3/uL (2.0-7.7); Basophil# 0.03 X10^3/uL; Basophil% 0.2 % (0-1); Hematocrit 47.9 % (40-54); Hemoglobin 15.4 g/dL (13.0-16.5); Lymphocyte # 0.74 X10^3/ul (4.0); Lymphocyte % 5.2 % (19-41); Mean Corp Hgb Conc 32.2 g/dL (32-36); Mean Corpuscular Hgb 29.3 pg (27.0-32.0); Mean Corpuscular Volume 91.1 fL (80-94); Mean Platelet Vol. 10.6 fl (6.2-12.0); Monocyte# 0.08 X10^3/uL; Monocyte% 0.6 % (0-10); NRBC Flagged by Analyzer 0 % (0-5); Neutrophil # 13.38 X10^3/uL (2.7-7.7); Neutrophil % 93.7 % (47-70); Platelet Count 227 K/mm3 (150-450); RBC Distribution Width CV 14.3 % (11.6-14.6); RBC Distribution Width SD 47.8 fl (35.1-43.9); Red Blood Count 5.26 M/mm3 (4.6-6.2); White Blood Count 14.3 K/mm3 (4.4-11.0)
[2020-03-28 05:59] LABS: Anion Gap 6 (5-15); BUN 14 mg/dL (7-18); BUN/Creat Ratio 15.7 RATIO (10-20); Calcium,Total 8.5 mg/dL (8.5-10.1); Chloride 100 mmol/L (98-107); Creatinine, Serum 0.89 mg/dL (0.70-1.30); EST Glomerular Filtration Rate 94 mL/min (>60); Est Glom Filt Rate - Afr Amer 114 mL/min (>60); Estimated Creatinine Clearance 101.72 ml/min; Glucose 291 mg/dL (74-106); Potassium 4.2 mmol/L (3.5-5.1); Sodium Level 134 mmol/L (136-145)
[2020-03-28] MEDS: Levothyroxine 175 MCG Tablet PO (06:18)
[2020-03-28] MEDS: Insulin Lispro 100 UNIT/ML INSULN.PEN SC ×3 (07:14→16:20)
[2020-03-28 07:21] LABS: Bedside Glucose 277 mg/dL (70-110)
[2020-03-28] MEDS: APIXABAN 5 MG TABLET 10 MG PO (09:23)
[2020-03-28] MEDS: Meclizine HCl 25 MG Tablet PO (09:24)
[2020-03-28] MEDS: Meloxicam 15 MG Tablet PO (09:24)
[2020-03-28] MEDS: Pantoprazole Sodium 40 MG Tablet PO (09:24)
[2020-03-28] MEDS: DULoxetine Hcl 60 MG Capsule PO (09:24)
[2020-03-28] MEDS: Lisinopril 20 MG Tablet PO (09:24)
[2020-03-28] MEDS: Acetaminophen 325 MG Tablet 650 MG PO ×2 (09:34→16:19)
[2020-03-28 11:11] LABS: Bedside Glucose 427 mg/dL (70-110)
--- NOTE | 2020-03-28 11:41 | DCINST_ITS ---
- Discharge Diagnoses Current Active Problems: Current Active and Chronic Problems Bilateral pulmonary embolism (Acute) Hypoxia (Acute) COPD exacerbation (Acute) You will use the following diet at home:: Calorie/Carbohydrate Controlled (specify 1200, 1400, etc) - 1800 samuel / day, Cardiac Your food should be the consistency of: Regular Your liquids should be the consistency of: Regular/Thin Discharge Activity: Return to Normal Activity Allergies/Adverse Reactions: Allergies latex Allergy (Verified 07/10/19 10:17) Anaphylaxis zolmitriptan [From Zomig] Allergy (Verified 07/10/19 10:17) Other Medications to take at Discharge Albuterol Inhaler [Ventolin Hfa] 1 puff INHALATION Q4H PRN PRN 11/29/13 Duloxetine Hcl [Cymbalta] 60 mg PO BID 11/29/13 Gabapentin [Neurontin] 300 mg PO QHS 11/29/13 Lisinopril [Zestril] 20 mg PO DAILY 11/29/13 Omeprazole [Prilosec] 40 mg PO DAILY 11/29/13 metFORMIN HCl [Glucophage] 500 mg PO DAILY 11/29/13 Albuterol Aerosols [Ventolin Aerosols] 2.5 mg INHALATION Q2H PRN PRN #1 box 11/30/13 Levothyroxine [Synthroid] 175 mcg PO DAILY@0600 07/17/15 Budesonide/Formoterol 80-4.5 [Symbicort 80-4.5 Mcg Inhaler] 2 puff INHALATION BID 04/02/18 Atorvastatin Calcium [Lipitor] 10 mg PO QHS 03/27/20 Meclizine HCl 25 mg PO DAILY 03/27/20 Apixaban [Eliquis] 10 mg PO BID #72 tab 03/28/20 predniSONE tablet 40 mg PO DAILY #10 tab 03/28/20 The following prescriptions were given: Apixaban [Eliquis] 10 mg PO BID #72 tab Transmission Status: Pending to [facility] predniSONE tablet 40 mg PO DAILY #10 tab Transmission Status: Pending to [facility] Please follow up with your Primary Care Physician in: 1 week Test Results: Test results from this visit will be discussed in further detail at your follow- up appointment, if applicable. Proposed Discharge Date: 03/28/20
--- NOTE | 2020-03-28 12:11 | CASEMGMT ---
Addendum entered by Ruba Martinez 03/28/20 15:35: Pt does qualify for home oxygen 2liters at this time and referral/script faxed to [facility] at [facility]. [facility], voice understanding. Bandar GARCIA CM Original Note: JOSE WILSON assessment: Face to Face with patient for initial transition planning/care coordination assessment. JOSE WILSON introduced self and role at [facility], pt voices understanding and consents to assessment at this time. Pt is lying in bed in no distress at this time on 2liters nc. Pt is A/Ox4 at this time and answers all questions appropriately at this time. Care providers, pharmacy, and demographics verified at this time. Presentation: c/o BLE edema, sent for possible DVT, hx DVT, c/o increased SOB, hx COPD Admitting dx: Bilat PE PCP: Arnel Specialists: Pt states no current specialists. Preferred Pharmacy: [facility]/Reji Sams/Melissa-pt to be sent home on Eliquis and med e-scribed to [facility] pharmacy-per tech, pt has no co-pay for Eliquis at this time. Insurance: [employer] Prescription Benefit: [employer] Living Will/HPOA: Pt states does not have LW/HPOA and declines AD info at this time. LNOK: Georgie Wilder, sister Living Arrangements: Pt states that he lives with his son in a mobile home with a few railed steps in and states no concerns at home at this time. Pt states is independent with ADL's normally but states if he does need help, his son can assist. Transportation: Pt states drives self and states no transportation concerns at this time. DME/HHC: Pt states has canes but no further DME at this time. Pt states he would like [facility] if he qualifies for home oxygen. Pt states no hx of HHC or SNF in the past. Pt states no concerns with going home at time of discharge. Pt states smokes a pack of cigarettes daily and does not drink ETOH. Pt states no further concerns/needs at this time. CM to follow for home oxygen and any further discharge planning/needs. Advised pt to ask for CM if any further questions/concerns/needs arise, voices understanding. Pt Goal: Home Plan: Home, pending O2 testing. Bandar GARCIA CM
--- NOTE | 2020-03-28 12:39 | PHA.DC.MC ---
Pharmacy Service has performed discharge medication reconciliation and counseling for this patient. The patient was counseled on the following discharge medications and changes in medications for homegoing were reviewed. 1. ELIQUIS The Reason for Use, instructions for use, and potential side effects were reviewed for all new medications. The patient's questions regarding all of their medications were answered. The patient demonstrated some understanding but would benefit from further education and reinforcement. Home Medications Albuterol Inhaler [Ventolin Hfa] 1 puff INHALATION Q4H PRN PRN 11/29/13 Duloxetine Hcl [Cymbalta] 60 mg PO BID 11/29/13 Gabapentin [Neurontin] 300 mg PO QHS 11/29/13 Lisinopril [Zestril] 20 mg PO DAILY 11/29/13 Omeprazole [Prilosec] 40 mg PO DAILY 11/29/13 metFORMIN HCl [Glucophage] 500 mg PO DAILY 11/29/13 Albuterol Aerosols [Ventolin Aerosols] 2.5 mg INHALATION Q2H PRN PRN #1 box 11/30/13 Levothyroxine [Synthroid] 175 mcg PO DAILY@0600 07/17/15 Budesonide/Formoterol 80-4.5 [Symbicort 80-4.5 Mcg Inhaler] 2 puff INHALATION BID 04/02/18 Atorvastatin Calcium [Lipitor] 10 mg PO QHS 03/27/20 Meclizine HCl 25 mg PO DAILY 03/27/20 Apixaban [Eliquis] 10 mg PO BID #72 tab 03/28/20 predniSONE tablet 40 mg PO DAILY #10 tab 03/28/20 The patient's discharge medication list was reviewed for discrepancies and discrepancies were resolved.
--- NOTE | 2020-03-28 12:52 | PCM.DC.SUM ---
<Turner Mae - Last Filed: 03/28/20 15:04> Discharge Date and Diagnosis - Problem List Patient Problems: Active and Suspected Problems Bilateral pulmonary embolism (Acute) Hypoxia (Acute) COPD exacerbation (Acute) Date of Admission: 03/27/20 Date of Discharge: 03/28/20 - Primary Discharge Diagnosis Acute Problems: Active Problems Bilateral pulmonary embolism (Acute) COPD exacerbation (Acute) Subtherapeutic INR Morbid obesity Nicotine abuse Type 2 diabetes - Secondary Discharge Diagnosis Chronic Problems: Chronic Problems Diabetes mellitus, type II (Chronic) Tobacco use (Chronic) COPD (chronic obstructive pulmonary disease) (Chronic) CAD (coronary artery disease) (Chronic) Notes cardiac catheterization late without PCI needed and unclear possible history of MA. LEONEL (obstructive sleep apnea) (Chronic) Morbid obesity with BMI of 40.0-44.9, adult (Chronic) Hyperlipidemia (Chronic) Hypothyroidism (Chronic) DVT, lower extremity, recurrent (Chronic) Chronic venous stasis (Chronic) PVD (peripheral vascular disease) (Chronic) GERD (gastroesophageal reflux disease) (Chronic) Hypertension (Chronic) Hospital Course and Treatment Operations: None Summary of Care Provided: Hospital course: The patient is a 55 year old M with past medical history as above, notably COPD with ongoing nicotine abuse, history of DVT on warfarin, who presented to the emergency room with increased lower extremity edema and shortness of breath. INR was subtherapeutic, d-dimer was elevated, CTA of the chest demonstrated pulmonary emboli in the right middle lobe and left upper lobe. Patient was also felt to have COPD exacerbation as he was very wheezy. He was started on Eliquis for PEs and started on Solu-Medrol and azithromycin for COPD exacerbation. Patient did well overnight with resolution of his shortness of breath. Echocardiogram was obtained, pending at this time. Patient had no further issues and felt that he was comfortable going home. He was transitioned to oral prednisone for 5 days for COPD, will continue Eliquis in place of Coumadin at home as he had breakthrough clots due to subtherapeutic INR. The patient was discharged home in stable condition. He will need to follow-up with his PCP in 1 week. This patient was seen by Turner Mae PA-C under the supervision of Doctor Epps. [] Patient Problems: Active and Suspected Problems Bilateral pulmonary embolism (Acute) Hypoxia (Acute) COPD exacerbation (Acute) - Physical Exam Vitals/I&O's: Vital Signs Temp Pulse Resp BP Pulse Ox 97.8 F 87 18 168/84 H 91 03/28/20 09:18 03/28/20 11:12 03/28/20 11:12 03/28/20 09:18 03/28/20 10:00 Oxygen Flow Rate (L/min) 2 Oxygen Delivery Method Room Air Weight: 353 lb 2.888 oz Body Mass Index (BMI) 47.9 Finger Stick Blood Glucose 210 Intake and Output for Last 24 Hours 03/26/20 03/27/20 03/28/20 23:59 23:59 23:59 Intake Total / Output Total 1974 Balance 0.25 / 0.25 General: Alert, Oriented x3, Cooperative HEENT: Atraumatic, PERRLA, EOMI, Normocephalic Neck: Supple, No JVD, Negative Carotid Bruits Lungs: Normal air movement, Wheezes Cardiovascular: Regular rate, No murmurs Abdomen: Bowel Sounds Present, Soft, Non Tender Extremities: No edema, Capillary Refill Less than 3 Seconds Skin: No rashes, No breakdown Musculoskeletal: No Tenderness to Palpation of Joints or Extremities Neurological: Cranial nerves II-XII grossly intact Psych/Mental Status: Normal Affect, Appropriate, Alert and oriented to time, place, person, mood and affect Laboratory Results 03/27/20 18:20: COVID-19 (JORI) Negative 03/27/20 18:42: Specimen Type ART, Sample Site R Radial, pH 7.41, Bicarbonate Actual 30.1 H, Total CO2 32, Base Excess 6 H, O2 Saturation 90 L, ABG pCO2 47.6 H, ABG pO2 60 L, Dilshad Test Positive, O2 Delivery Device Room Air 03/27/20 18:43: Sodium 138, Potassium 4.8, Chloride 106, Carbon Dioxide 29.0, Anion Gap 3 L, BUN 17, Creatinine 0.82, Estim Creat Clear Calc 110.41, Est GFR (MDRD) Af Amer 126, Est GFR (MDRD) Non-Af 104, BUN/Creatinine Ratio 20.9 H, Glucose 160 H, Calcium 8.4 L, Total Bilirubin 0.40, AST 30, ALT 27, Alkaline Phosphatase 106, Total Protein 6.9, Albumin 3.0 L, Globulin 3.9, Albumin/Globulin Ratio 0.8 L 03/27/20 18:57: WBC 12.9 H, RBC 5.22, Hgb 15.3, Hct 47.6, MCV 91.2, MCH 29.3, MCHC 32.1, RDW Std Deviation 48.7 H, RDW Coeff of Vin 14.6, Plt Count 227, MPV 10.8, Immature Gran % (Auto) 0.200, Neut % (Auto) 70.6 H, Lymph % (Auto) 16.6 L, [place] % (Auto) 9.0, Eos % (Auto) 2.9, Baso % (Auto) 0.7, Absolute Neuts (auto) 9.1 H, Absolute Lymphs (auto) 2.14, Nucleated RBC % 0 03/27/20 18:57: B-Natriuretic Peptide 39.0 03/27/20 19:05: PT 17.1 H, INR 1.4, APTT 27.6, D-Dimer Quant (PE/DVT) 1.54 H* 03/27/20 19:05: Lactic Acid 1.4 03/27/20 20:11: POC Glucose 210 H 03/28/20 05:26: WBC 14.3 H, RBC 5.26, Hgb 15.4, Hct 47.9, MCV 91.1, MCH 29.3, MCHC 32.2, RDW Std Deviation 47.8 H, RDW Coeff of Vin 14.3, Plt Count 227, MPV 10.6, Immature Gran % (Auto) 0.300, Neut % (Auto) 93.7 H, Lymph % (Auto) 5.2 L, [place] % (Auto) 0.6, Eos % (Auto) 0.0, Baso % (Auto) 0.2, Absolute Neuts (auto) 13.4 H, Absolute Lymphs (auto) 0.74 L, Nucleated RBC % 0 03/28/20 05:26: Sodium 134 L, Potassium 4.2, Chloride 100, Carbon Dioxide 28.0, Anion Gap 6, BUN 14, Creatinine 0.89, Estim Creat Clear Calc 101.72, Est GFR (MDRD) Af Amer 114, Est GFR (MDRD) Non-Af 94, BUN/Creatinine Ratio 15.7, Glucose 291 H, Calcium 8.5 03/28/20 07:11: POC Glucose 277 H 03/28/20 11:01: POC Glucose 427 H Current Medications Acetaminophen (Tylenol) 650 mg PO Q6H PRN PRN PRN Reason: Pain Score 1-10/Temp > 100.7 F Last Admin: 03/28/20 09:34 Dose: 650 mg Documented by: Albuterol Sulfate (Ventolin Aerosols) 2.5 mg INHALATION Q2H PRN PRN PRN Reason: SHORTNESS OF BREATH Albuterol/Ipratropium (Duoneb) 3 ml INHALATION Q4H.RT [facility] Last Admin: 03/28/20 11:12 Dose: 3 ml Documented by: Apixaban (Eliquis) 10 mg PO BID [facility] Last Admin: 03/28/20 09:23 Dose: 10 mg Documented by: Atorvastatin Calcium (Lipitor) 10 mg PO QHS [facility] Dextrose (D50w Syringe) 0 gm IV X1 PRN; Protocol PRN Reason: Hypoglycemia Duloxetine HCl (Cymbalta) 60 mg PO BID [facility] Last Admin: 03/28/20 09:24 Dose: 60 mg Documented by: Gabapentin (Neurontin) 300 mg PO QHS [facility] Glucagon () 1 mg IM .X1 PRN PRN Reason: Hypoglycemia Sodium Chloride () 250 mls @ 15 mls/hr IV .[id number] PRN PRN Reason: Saline Flush Last Infusion: 03/28/20 00:58 Dose: 0 mls/hr Documented by: Sodium Chloride () 250 mls @ 15 mls/hr IV .[id number] PRN PRN Reason: Additional IVPB Infusion Insulin Human Lispro (Humalog Rj (Bkc)) 0 unit SC ACHS [facility]; Protocol Last Admin: 03/28/20 11:03 Dose: 7 units Documented by: Levothyroxine Sodium (Synthroid) 175 mcg PO DAILY@0600 [facility] Last Admin: 03/28/20 06:18 Dose: 175 mcg Documented by: Lisinopril (Zestril) 20 mg PO DAILY [facility] Last Admin: 03/28/20 09:24 Dose: 20 mg Documented by: Meclizine HCl (Antivert) 25 mg PO DAILY [facility] Last Admin: 03/28/20 09:24 Dose: 25 mg Documented by: Melatonin (Melatonin) 3 mg PO QHS PRN PRN PRN Reason: INSOMNIA Meloxicam (Mobic) 15 mg PO DAILY [facility] Last Admin: 03/28/20 09:24 Dose: 15 mg Documented by: Methylprednisolone (Solu-Medrol) 40 mg IV Q8 [facility] Last Admin: 03/28/20 06:18 Dose: 40 mg Documented by: Nicotine (Nicoderm Cq ([facility])) 21 mg TRANSDERM. DAILY [facility] Last Admin: 03/28/20 09:25 Dose: 21 mg Documented by: Ondansetron HCl (Zofran) 4 mg IV Q8H PRN PRN PRN Reason: NAUSEA/VOMITING Pantoprazole Sodium (Protonix) 40 mg PO DAILY [facility] Last Admin: 03/28/20 09:24 Dose: 40 mg Documented by: Senna/Docusate Sodium (Senokot-S, Tasha-Colace) 2 tablet PO BID PRN PRN PRN Reason: Constipation Sodium Chloride () 10 - 40 ml IV UD PRN PRN Reason: SALINE FLUSH Last Admin: 03/28/20 06:19 Dose: 10 ml Documented by: Discharge Diet: Low fat/ Low Cholesterol, 1800 Calorie Control Diet, 2000 mg Sodium Diet Discharge Activity: Return to Normal Activity Home Medications: Medications to take at Discharge Albuterol Inhaler [Ventolin Hfa] 1 puff INHALATION Q4H PRN PRN 11/29/13 Duloxetine Hcl [Cymbalta] 60 mg PO BID 11/29/13 Gabapentin [Neurontin] 300 mg PO QHS 11/29/13 Lisinopril [Zestril] 20 mg PO DAILY 11/29/13 Omeprazole [Prilosec] 40 mg PO DAILY 11/29/13 metFORMIN HCl [Glucophage] 500 mg PO DAILY 11/29/13 Albuterol Aerosols [Ventolin Aerosols] 2.5 mg INHALATION Q2H PRN PRN #1 box 11/30/13 Levothyroxine [Synthroid] 175 mcg PO DAILY@0600 07/17/15 Budesonide/Formoterol 80-4.5 [Symbicort 80-4.5 Mcg Inhaler] 2 puff INHALATION BID 04/02/18 Atorvastatin Calcium [Lipitor] 10 mg PO QHS 03/27/20 Meclizine HCl 25 mg PO DAILY 03/27/20 Apixaban [Eliquis] 10 mg PO BID #72 tab 03/28/20 predniSONE tablet 40 mg PO DAILY #10 tab 03/28/20 Following Prescriptions Were Given to Patient: Apixaban [Eliquis] 10 mg PO BID #72 tab Transmission Status: Received by [facility] predniSONE tablet 40 mg PO DAILY #10 tab Transmission Status: Received by [facility] Primary Care Physician: Yohan Seals MD [Primary Care Provider] - Please follow up with your Primary Care Physician in: 1 week Disposition: Home Minutes spent on discharge:: 35 Patient Condition:: Stable Medical Necessity - Tobacco Use Smoking Status: Heavy Smoker (>10/day) Tobacco Use: Cigarettes, Cigars Meaningful Use Info Meaningful Use Diagnoses (Choose all that apply): VTE - VTE Anticoag overlap given w/in hospital stay or rx'd at wa?: No Pt receive overlap for 5 days?: No Reason overlap not ordered, prescribed, or given for 5 days: Procedure Not Indicated <Jacob Epps - Last Filed: 03/28/20 15:34> Discharge Date and Diagnosis - Primary Discharge Diagnosis Acute Problems: Active Problems Bilateral pulmonary embolism (Acute) Hypoxia (Acute) COPD exacerbation (Acute) - Secondary Discharge Diagnosis Chronic Problems: Chronic Problems Diabetes mellitus, type II (Chronic) Tobacco use (Chronic) COPD (chronic obstructive pulmonary disease) (Chronic) CAD (coronary artery disease) (Chronic) Notes cardiac catheterization late without PCI needed and unclear possible history of MA. LEONEL (obstructive sleep apnea) (Chronic) Morbid obesity with BMI of 40.0-44.9, adult (Chronic) Hyperlipidemia (Chronic) Hypothyroidism (Chronic) DVT, lower extremity, recurrent (Chronic) Chronic venous stasis (Chronic) PVD (peripheral vascular disease) (Chronic) GERD (gastroesophageal reflux disease) (Chronic) Hypertension (Chronic) Hospital Course and Treatment Summary of Care Provided: The patient is a 55 year old M [] - Physical Exam Vitals/I&O's: Vital Signs Temp Pulse Resp BP Pulse Ox 98.1 F 100 17 152/72 H 88 03/28/20 14:47 03/28/20 14:47 03/28/20 14:47 03/28/20 14:47 03/28/20 14:58 Oxygen Flow Rate (L/min) [ 2 AMBULATION with Oxygen] Oxygen Flow Rate (L/min) 2 Oxygen Delivery Method Nasal Cannula Weight: 353 lb 2.888 oz Body Mass Index (BMI) 47.9 Finger Stick Blood Glucose 210 Intake and Output for Last 24 Hours 03/26/20 03/27/20 03/28/20 23:59 23:59 23:59 Intake Total / Output Total 1974 Balance 0.25 / 0.25 Laboratory Results 03/27/20 18:20: COVID-19 (JORI) Negative 03/27/20 18:42: Specimen Type ART, Sample Site R Radial, pH 7.41, Bicarbonate Actual 30.1 H, Total CO2 32, Base Excess 6 H, O2 Saturation 90 L, ABG pCO2 47.6 H, ABG pO2 60 L, Dilshad Test Positive, O2 Delivery Device Room Air 03/27/20 18:43: Sodium 138, Potassium 4.8, Chloride 106, Carbon Dioxide 29.0, Anion Gap 3 L, BUN 17, Creatinine 0.82, Estim Creat Clear Calc 110.41, Est GFR (MDRD) Af Amer 126, Est GFR (MDRD) Non-Af 104, BUN/Creatinine Ratio 20.9 H, Glucose 160 H, Calcium 8.4 L, Total Bilirubin 0.40, AST 30, ALT 27, Alkaline Phosphatase 106, Total Protein 6.9, Albumin 3.0 L, Globulin 3.9, Albumin/Globulin Ratio 0.8 L 03/27/20 18:57: WBC 12.9 H, RBC 5.22, Hgb 15.3, Hct 47.6, MCV 91.2, MCH 29.3, MCHC 32.1, RDW Std Deviation 48.7 H, RDW Coeff of Vin 14.6, Plt Count 227, MPV 10.8, Immature Gran % (Auto) 0.200, Neut % (Auto) 70.6 H, Lymph % (Auto) 16.6 L, [place] % (Auto) 9.0, Eos % (Auto) 2.9, Baso % (Auto) 0.7, Absolute Neuts (auto) 9.1 H, Absolute Lymphs (auto) 2.14, Nucleated RBC % 0 03/27/20 18:57: B-Natriuretic Peptide 39.0 03/27/20 19:05: PT 17.1 H, INR 1.4, APTT 27.6, D-Dimer Quant (PE/DVT) 1.54 H* 03/27/20 19:05: Lactic Acid 1.4 03/27/20 20:11: POC Glucose 210 H 03/28/20 05:26: WBC 14.3 H, RBC 5.26, Hgb 15.4, Hct 47.9, MCV 91.1, MCH 29.3, MCHC 32.2, RDW Std Deviation 47.8 H, RDW Coeff of Vin 14.3, Plt Count 227, MPV 10.6, Immature Gran % (Auto) 0.300, Neut % (Auto) 93.7 H, Lymph % (Auto) 5.2 L, [place] % (Auto) 0.6, Eos % (Auto) 0.0, Baso % (Auto) 0.2, Absolute Neuts (auto) 13.4 H, Absolute Lymphs (auto) 0.74 L, Nucleated RBC % 0 03/28/20 05:26: Sodium 134 L, Potassium 4.2, Chloride 100, Carbon Dioxide 28.0, Anion Gap 6, BUN 14, Creatinine 0.89, Estim Creat Clear Calc 101.72, Est GFR (MDRD) Af Amer 114, Est GFR (MDRD) Non-Af 94, BUN/Creatinine Ratio 15.7, Glucose 291 H, Calcium 8.5 03/28/20 07:11: POC Glucose 277 H 03/28/20 11:01: POC Glucose 427 H Current Medications Acetaminophen (Tylenol) 650 mg PO Q6H PRN PRN PRN Reason: Pain Score 1-10/Temp > 100.7 F Last Admin: 03/28/20 09:34 Dose: 650 mg Documented by: Albuterol Sulfate (Ventolin Aerosols) 2.5 mg INHALATION Q2H PRN PRN PRN Reason: SHORTNESS OF BREATH Albuterol/Ipratropium (Duoneb) 3 ml INHALATION Q4H.RT [facility] Last Admin: 03/28/20 11:12 Dose: 3 ml Documented by: Apixaban (Eliquis) 10 mg PO BID [facility] Last Admin: 03/28/20 09:23 Dose: 10 mg Documented by: Atorvastatin Calcium (Lipitor) 10 mg PO QHS [facility] Dextrose (D50w Syringe) 0 gm IV X1 PRN; Protocol PRN Reason: Hypoglycemia Duloxetine HCl (Cymbalta) 60 mg PO BID [facility] Last Admin: 03/28/20 09:24 Dose: 60 mg Documented by: Gabapentin (Neurontin) 300 mg PO QHS [facility] Glucagon () 1 mg IM .X1 PRN PRN Reason: Hypoglycemia Sodium Chloride () 250 mls @ 15 mls/hr IV .[id number] PRN PRN Reason: Saline Flush Last Infusion: 03/28/20 00:58 Dose: 0 mls/hr Documented by: Sodium Chloride () 250 mls @ 15 mls/hr IV .[id number] PRN PRN Reason: Additional IVPB Infusion Insulin Human Lispro (Humalog Kwikpen (Bkc)) 0 unit SC ACHS [facility]; Protocol Last Admin: 03/28/20 11:03 Dose: 7 units Documented by: Levothyroxine Sodium (Synthroid) 175 mcg PO DAILY@0600 [facility] Last Admin: 03/28/20 06:18 Dose: 175 mcg Documented by: Lisinopril (Zestril) 20 mg PO DAILY [facility] Last Admin: 03/28/20 09:24 Dose: 20 mg Documented by: Meclizine HCl (Antivert) 25 mg PO DAILY [facility] Last Admin: 03/28/20 09:24 Dose: 25 mg Documented by: Melatonin (Melatonin) 3 mg PO QHS PRN PRN PRN Reason: INSOMNIA Meloxicam (Mobic) 15 mg PO DAILY [facility] Last Admin: 03/28/20 09:24 Dose: 15 mg Documented by: Methylprednisolone (Solu-Medrol) 40 mg IV Q8 [facility] Last Admin: 03/28/20 14:54 Dose: 40 mg Documented by: Nicotine (Nicoderm Cq ([facility])) 21 mg TRANSDERM. DAILY [facility] Last Admin: 03/28/20 09:25 Dose: 21 mg Documented by: Ondansetron HCl (Zofran) 4 mg IV Q8H PRN PRN PRN Reason: NAUSEA/VOMITING Pantoprazole Sodium (Protonix) 40 mg PO DAILY [facility] Last Admin: 03/28/20 09:24 Dose: 40 mg Documented by: Senna/Docusate Sodium (Senokot-S, Tasha-Colace) 2 tablet PO BID PRN PRN PRN Reason: Constipation Sodium Chloride () 10 - 40 ml IV UD PRN PRN Reason: SALINE FLUSH Last Admin: 03/28/20 14:54 Dose: 10 ml Documented by: Addendum: Dr. Epps I personally examined the patient and reviewed the chart. I agree with the above. 55-year-old male presents with shortness of breath from home. He has a history of COPD and is likely a COPD exacerbation however CT of the chest also demonstrated bilateral pulmonary embolisms. He has had DVTs in the past and therefore he is likely now on lifelong anticoagulation. Venous Doppler did not show a new DVT but he was started on Eliquis 10 mg p.o. twice daily for a week and then he did transition to 5 mg p.o. twice daily, I did discuss with him the importance of taking his Eliquis. He was initially on Coumadin however he ran out recently and has not refilled it and when he presented to the hospital his INR was 1.4. He was also started on steroids and was back on room air today for his COPD exacerbation therefore he was discharged home with steroids for 5 days. I did discuss with him the need to quit smoking as well as being compliant with his CPAP for obstructive sleep apnea. He will need to follow-up with his PCP in 3 to 5 days, and I discussed with him the plan for discharge and he expressed understanding of the risks and benefits of going home today. Inpatient E&M: [id number] Disch Hosp
[2020-03-28 16:31] LABS: Bedside Glucose 370 mg/dL (70-110)
== END 2020-03-28 17:13 | disposition home or self-care (01) | DRG 176 ==
LOC: ED 22:03 → PCU 22:47
PROVIDERS: Admitting Provider Hospitalist; Emergency Provider Emergency Medicine; PCP Family Medicine; Referring Provider Hospitalist; Visit Provider Family Medicine
DX: I26.99 Other pulmonary embolism without acute cor pulmonale (principal); J44.1 Chronic obstructive pulmonary disease with (acute) exacerbation; Z68.42 Body mass index [BMI] 45.0-49.9, adult; I82.441 Acute embolism and thrombosis of right tibial vein; D68.51 Activated protein C resistance; R09.02 Hypoxemia; E66.01 Morbid (severe) obesity due to excess calories; I10 Essential (primary) hypertension; I25.10 Atherosclerotic heart disease of native coronary artery without angina pectoris; I87.8 Other specified disorders of veins; G47.33 Obstructive sleep apnea (adult) (pediatric); E78.5 Hyperlipidemia, unspecified; E03.9 Hypothyroidism, unspecified; E11.51 Type 2 diabetes mellitus with diabetic peripheral angiopathy without gangrene; E11.40 Type 2 diabetes mellitus with diabetic neuropathy, unspecified; K21.9 Gastro-esophageal reflux disease without esophagitis; F17.210 Nicotine dependence, cigarettes, uncomplicated; F17.290 Nicotine dependence, other tobacco product, uncomplicated; Z91.19 Patient's noncompliance with other medical treatment and regimen; Z86.718 Personal history of other venous thrombosis and embolism; Z79.01 Long term (current) use of anticoagulants; Z79.84 Long term (current) use of oral hypoglycemic drugs; Z99.81 Dependence on supplemental oxygen; Z79.51 Long term (current) use of inhaled steroids; Z79.1 Long term (current) use of non-steroidal anti-inflammatories (NSAID); Z79.890 Hormone replacement therapy; Z79.899 Other long term (current) drug therapy
CPT/HCPCS: 36415; 36600; 71045; 71275; 80048; 80053; 82803; 82962; 83605; 83880; 85025; 85379; 85610; 85730; 87635; 93005; 93306; 93971; 94002; 94640; 94799; 99285; 99406; J7030; J7050; Q9957; Q9967; A4216; C8929; J2405; U0003

== ENCOUNTER 2020-08-21 18:06 | Emergency (ER) | payer MEDICARE, MEDICAID, SELFPAY ==
[2020-03-28 00:26] VITALS: BMI 47.9
[2020-08-21 18:07] VITALS: BP 161/125; PULSE 85; RESP 28; TEMP 36.6; O2SAT 96; BMI 48.9
[2020-08-21 18:10] VITALS: BP 161/125; PULSE 86; RESP 28; TEMP 36.6; O2SAT 96
--- NOTE | 2020-08-21 18:24 | EKG12_ITS ---
Test Reason : ARRYTH Blood Pressure : / mmHG Vent. Rate : 083 BPM Atrial Rate : 083 BPM P-R Int : 136 ms QRS Dur : 104 ms QT Int : 416 ms P-R-T Axes : 031 097 -14 degrees QTc Int : 488 ms Normal sinus rhythm with sinus arrhythmia Rightward axis Nonspecific T wave abnormality Abnormal ECG When compared with ECG of 27-MAR-2020 18:28, Premature atrial complexes are no longer Present Inverted T waves have replaced nonspecific T wave abnormality in Inferior leads QT has lengthened Confirmed by ANABEL LOWERY, ALIS ([id number]), order editor RADHA GRUBER ([id number]) on 09/09/2020 11:23:48 AM Referred By: GERHARD Confirmed By:JOSEPH LITTLE MD
--- NOTE | 2020-08-21 18:37 | US_ITS ---
STUDY: VENOUS DOPPLER ULTRASOUND - LEFT LOWER EXTREMITY REASON FOR EXAM: Male, 55 years old. LT HIP PAIN AND LEG PAIN WITH SWELLING TECHNIQUE: Ultrasound evaluation of the deep vein system to include leblanc-scale imaging and compression was performed. Leblanc-scale imaging and Doppler sonographic evaluation, including duplex spectral analysis and qualitative color flow sonography, was performed. COMPARISON: None. FINDINGS: Common femoral, femoral and popliteal veins are patent with no evidence of luminal thrombus. Deep venous structures respond normally to compression and augmentation maneuvers. Normal color Doppler. Visualized calf veins are patent. US/Venous Duplex Imag/Limited/Uni IMPRESSION: Unremarkable venous Doppler ultrasound of the lower extremity. Electronically Signed: Kalyani Michel MD at 19:50 EST Tel , Service support ,
--- NOTE | 2020-08-21 19:07 | ED.VIS.GEN ---
History of Present Illness Chief Complaint: Lower Extremity Injury Informant: Patient Onset: Hours, Days Context: Sudden Onset Timing: Continuous Quality: Pain Location: Left hip, left knee and left leg Current Severity: Mild Maximum Severity: Severe Worsened by: Weightbearing Relieved by: Nothing Associated Symptoms: Increased swelling left lower extremity Narrative: Patient is a middle-age male with history of DVT who admits noncompliance taking Eliquis. He presents because his left leg is swollen and discolored. He also believes that is cool to touch. He denies chest pain of any type including pleuritic. He denies hemoptysis or shortness of breath even though he is tachypneic. He states he always breathes like that due to COPD. He denies wheezing. He does have history obstructive sleep apnea. He has not been compliant with his CPAP machine. He denies fever, chills night sweats. He denies ocular, visual auditory symptoms. He denies cardiac symptoms. He denies nausea, vomiting diarrhea. He denies black or maroon stool. He denies urologic symptoms. He does have history of osteoarthritis. He does not recall when he had an x-ray of his hip or knee. Prior similar symptoms: Yes - D VT and history of osteoarthritis Recent Illness/Hospitalization: No - Past Medical History (1) Bilateral pulmonary embolism Status: Acute (2) COPD exacerbation Status: Acute (3) CAD (coronary artery disease) Status: Chronic Comment: Notes cardiac catheterization late without PCI needed and unclear possible history of UT. (4) COPD (chronic obstructive pulmonary disease) Status: Chronic (5) Chronic venous stasis Status: Chronic (6) DVT, lower extremity, recurrent Status: Chronic (7) Diabetes mellitus, type II Status: Chronic (8) Hyperlipidemia Status: Chronic (9) Hypertension Status: Chronic (10) Hypothyroidism Status: Chronic (11) Morbid obesity with BMI of 40.0-44.9, adult Status: Chronic (12) LEONEL (obstructive sleep apnea) Status: Chronic (13) PVD (peripheral vascular disease) Status: Chronic Past Medical History - Allergies and Home Meds Allergies/Adverse Reactions: Allergies latex Allergy (Verified 08/21/20 18:57) Anaphylaxis zolmitriptan [From Zomig] Allergy (Verified 08/21/20 18:57) Other Primary Care Physician: Yohan Seals MD [Primary Care Provider] - Prior records reviewed: Yes Surgical History: - - Cardiac catheterization, R knee foreign body removal. Lives: Alone Smoking Status: Current every day smoker Alcohol: None Drugs: None - Family History Maternal Family History: Reports: Cancer Paternal Family History: Reports: Diabetes, Heart Disease, Hypertension Review of Systems General: Reports: Malaise. Denies: Chills, Fever, Subjective, Sweats, Weight loss Eyes: Denies: Visual changes - bilaterally, Blurred Vision - bilaterally ENT: Denies: Bilateral ear pain, Rhinorrhea, Sore throat Cardiovascular: Denies: Chest pain, Palpitations, Heart racing Respiratory: Reports: Dyspnea on exertion. Denies: Dyspnea, Cough, Sputum, Orthopnea Gastrointestinal: Reports: Abdominal pain, Nausea, Vomiting Genitourinary: Denies: Dysuria, Hematuria, Frequency Musculoskeletal: Reports: Swelling, Extremity Pain. Denies: Myalgias, Arthralgias, Neck pain Skin: Reports: Rash. Denies: Wounds Neurological: Denies: Headache, Weakness, Parasthesia Endocrine: Denies: Polyuria, Polydipsia Hematologic: Denies: Easy bruising, Easy bleeding Allergy: Denies: Uticaria Physical Exam Vital Signs/Narrative: Vital Signs Temp Pulse Resp BP Pulse Ox 08/21/20 18:10 97.9 F 86 28 H 161/125 H 96 08/21/20 18:07 97.9 F 85 28 H 161/125 H 96 Inital Vital Signs reviewed: Yes General: Well nourished, Well developed, Obese, Unkempt Head: Normocephalic, Atraumatic Eyes: Perrl, EOMI. Negative for: Pale conjunctiva, Scleral icterus ENT: Moist mucous membranes. Negative for: Nasal congestion Neck: Supple, Nontender, No lymphadenopathy, No JVD Cardiovascular: Regular rate, Regular rhythm, No murmurs, Normal S1 Respiratory: Chest nontender. Negative for: No distress, CTA bilaterally - End inspiratory rales consistent with COPD. There is no rhonchi or wheezing noted Abdomen: Soft, Nontender, Nondistended, Normal bowel sounds Rectal: Deferred Back: Nontender Extremities: Tenderness, Edema, - - Inserted for DVT left lower extremity. Left knee has an effusion. Able to extend 160 degrees and flex to 100 degrees. No laxity with varus valgus stress testing. Unable to perform Saloni's or modified Kunal's because of pain and body habitus. Significant pain left inguinal area with interna. Negative for: Nontender, No edema Skin: Normal color, Rash - Venous stasis dermatitis Neurological: Alert, Oriented x3, Cranial nerves II-XII grossly intact, Normal Strength, Normal Sensation. Negative for: Normal Gait Psychological: Depressed Diagnostic/Tx/Re-eval Chest X-Ray - ED: Read by ED Physician, - - Single view chest x-ray reveals no chronic process with no acute process. 3 view x-ray of the hip reveals no abnormality and 4 view x-ray of the knee reveals a fusion with arthritic changes. X-rays were interpreted by me at 1939. Impressions Venous Duplex 08/21/20 18:37 IMPRESSION: Unremarkable venous Doppler ultrasound of the lower extremity. Electronically Signed: Kalyani Michel MD at 19:50 EST Tel , Service support , Chest X-Ray 08/21/20 19:15 IMPRESSION: No acute cardiopulmonary disease or major interval change. Electronically Signed: Tristian Woods DO at 19:47 EST Tel [phone], Service support , Hip/Pelvis X-Ray 08/21/20 19:21 IMPRESSION: Normal x-ray examination of the pelvis and left hip. Electronically Signed: Tristian Woods DO at 19:45 EST Tel [phone], Service support , Knee X-Ray 08/21/20 19:27 IMPRESSION: Mild arthrosis left knee with small suprapatellar joint effusion. Electronically Signed: Tristian Woods DO at 19:46 EST Tel [phone], Service support , 08/21/20 19:15 Chest 1 View (Portable) [RAD] Stat 08/21/20 19:21 HIP, UNI W/ Pelvis 2-3 Views [RAD] Stat 08/21/20 19:27 Knee 4 or More Views [RAD] Stat Laboratory Results 08/21/20 08/21/20 08/21/20 18:30 18:30 18:30 WBC 12.0 H RBC 5.72 Hgb 15.4 Hct 49.1 MCV 85.8 MCH 26.9 L MCHC 31.4 L RDW Std Deviation 47.7 H RDW Coeff of Vin 15.4 H Plt Count 279 MPV 11.0 Immature Gran % (Auto) 0.200 Neut % (Auto) 66.2 Lymph % (Auto) 20.0 Cassia % (Auto) 8.5 Eos % (Auto) 4.2 Baso % (Auto) 0.9 Absolute Neuts (auto) 8.0 H Absolute Lymphs (auto) 2.40 Nucleated RBC % 0 Sodium 139 Potassium 3.7 Chloride 106 Carbon Dioxide 28.0 Anion Gap 5 BUN 20 H Creatinine 0.84 Estim Creat Clear Calc 107.78 Est GFR (MDRD) Af Amer 122 Est GFR (MDRD) Non-Af 101 BUN/Creatinine Ratio 24.0 H Glucose 192 H Calcium 8.5 Troponin I < 0.015 B-Natriuretic Peptide 25.5 She was informed of his results. There is no evidence of heart failure. There is no evidence of DVT. He is not anemic. Renal function is normal. Plan is to discharge with pain medicine. He does have hyperglycemia due to diabetes. - Medical Decision Making Since patient has prior DVT and is noncompliant with anticoagulant venous duplex study was obtained to rule out DVT. Concern patient has osteoarthritis of his hip and knee. Will obtain x-rays to evaluate for other causes. Doubt pyogenic arthritis. Doubt crystal induced arthritis. Because he is tachypneic chest x-ray was obtained. ED Disposition - Plan for ED Patient: Disposition: Home or Assisted Living Diagnosis: Acute pain of left lower extremity, Effusion of knee joint, left, Osteoarthritis of left hip, Hyperglycemia due to diabetes mellitus Instructions: ED Pain, Acute, Uncertain Cause, ED Knee Effusion, ED Osteoarthritis Prescriptions: Hydrocodone Bitart/Apap 5-325 [[place] 5MG-325MG] 1 tablet PO Q6H PRN PRN 3 Days #10 tablet PRN Reason: Pain Transmission Status: Sent to [facility] Referrals: Yohan Seals MD [Primary Care Provider] - 3-5 Days
--- NOTE | 2020-08-21 19:15 | RAD_ITS ---
STUDY: X-RAY CHEST REASON FOR EXAM: Male, 55 years old. Edema left leg. TECHNIQUE: Single AP portable view of the chest. COMPARISON: 03/27/2020. FINDINGS: The lungs are clear and expanded. There is no demonstrated pleural abnormality. Normal size heart. Normal mediastinum and radha. Normal visualized pulmonary arteries. Normal visualized aortic arch and descending thoracic aorta. There are diffuse degenerative changes of the visualized thoracic spine. There is degenerative osteoarthritis of the bilateral shoulders. There is no demonstrated abnormality of the visualized soft tissue structures of the upper abdomen. RAD/Chest 1 View (Portable) IMPRESSION: No acute cardiopulmonary disease or major interval change. Electronically Signed: Tristian Woods DO at 19:47 EST Tel [phone], Service support ,
--- NOTE | 2020-08-21 19:21 | RAD_ITS ---
STUDY: X-RAY - PELVIS AND LEFT HIP REASON FOR EXAM: Male, 55 years old. Left hip and leg pain since yesterday. Coldness and edema in the left leg. TECHNIQUE: 4 views of the pelvis and hip. COMPARISON: Pelvis and right hip, 09/27/2019. FINDINGS: There is a non-specific bowel gas pattern. Normal visualized soft tissue structures. Stable degenerative changes of the lower lumbar spine. Normal bilateral iliac wings, sacroiliac joints and visualized sacrum. Normal bilateral superior and inferior pubic rami. Normal pubic symphysis. Normal bilateral ischial tuberosities. Normal visualized left femoral head. Normal left acetabulum. Normal left hip joint. RAD/HIP, UNI W/ Pelvis 2-3 Views IMPRESSION: Normal x-ray examination of the pelvis and left hip. Electronically Signed: Tristian Woods DO at 19:45 EST Tel [phone], Service support ,
--- NOTE | 2020-08-21 19:27 | RAD_ITS ---
STUDY: X-RAY - LEFT KNEE REASON FOR EXAM: Male, 55 years old. Left leg pain since yesterday. Complains of coldness and edema of the left leg. TECHNIQUE: 4 view(s) of the knee. COMPARISON: None. FINDINGS: Normal visualized distal femur. Normal visualized proximal tibia and fibula. Normal proximal tibiofibular articulation. There is no acute fracture, dislocation or destructive osseous pathology. Normal medial femorotibial compartment. There is mild degenerative arthrosis of the lateral femorotibial compartment. There is mild degenerative arthrosis of the patellofemoral articulation. There is a soft tissue prominence in the suprapatellar region suggesting a small volume joint effusion. The soft tissue structures are unremarkable. RAD/Knee 4 or More Views IMPRESSION: Mild arthrosis left knee with small suprapatellar joint effusion. Electronically Signed: Tristian Woods DO at 19:46 EST Tel [phone], Service support ,
[2020-08-21 19:37] LABS: Basophil# 0.11 X10^3/uL; Basophil% 0.9 % (0-1); Eosinophils% 4.2 % (0-5); Hematocrit 49.1 % (40-54); Hemoglobin 15.4 g/dL (13.0-16.5); Mean Corp Hgb Conc 31.4 g/dL (32-36); Mean Corpuscular Hgb 26.9 pg (27.0-32.0); Mean Corpuscular Volume 85.8 fL (80-94); Monocyte# 1.02 X10^3/uL; Monocyte% 8.5 % (0-10); NRBC Flagged by Analyzer 0 % (0-5); Neutrophil # 7.97 X10^3/uL (2.7-7.7); Neutrophil % 66.2 % (47-70); Platelet Count 279 K/mm3 (150-450); RBC Distribution Width CV 15.4 % (11.6-14.6); RBC Distribution Width SD 47.7 fl (35.1-43.9); Red Blood Count 5.72 M/mm3 (4.6-6.2)
--- NOTE | 2020-08-21 19:37 | EKG12_ITS ---
Test Reason : ARRYTH Blood Pressure : / mmHG Vent. Rate : 081 BPM Atrial Rate : 081 BPM P-R Int : 150 ms QRS Dur : 104 ms QT Int : 432 ms P-R-T Axes : 039 088 -09 degrees QTc Int : 501 ms Normal sinus rhythm with sinus arrhythmia Nonspecific T wave abnormality Abnormal ECG Confirmed by ANABEL LOWERY, ALIS ([id number]), newspaper copy editor BRANDY BLACKMAN ([id number]) on 08/26/2020 9:31:49 AM Referred By: GERHARD Confirmed By:JOSEPH LITTLE MD
[2020-08-21 19:47] LABS: BNP,B-Type NATRIURETIC PEPTIDE 25.5 pg/mL (0-100)
[2020-08-21 19:51] LABS: Anion Gap 5 (5-15); BUN 20 mg/dL (7-18); Calcium,Total 8.5 mg/dL (8.5-10.1); Chloride 106 mmol/L (98-107); Creatinine, Serum 0.84 mg/dL (0.70-1.30); EST Glomerular Filtration Rate 101 mL/min (>60); Est Glom Filt Rate - Afr Amer 122 mL/min (>60); Estimated Creatinine Clearance 107.78 ml/min; Glucose 192 mg/dL (74-106); Potassium 3.7 mmol/L (3.5-5.1); Sodium Level 139 mmol/L (136-145)
[2020-08-21] MEDS: oxyCODONE 5 MG Tablet PO (20:28)
[2020-08-21 20:38] VITALS: BP 167/77; PULSE 83; RESP 18; O2SAT 95
== END 2020-08-21 20:39 | disposition home or self-care (01) ==
PROVIDERS: Emergency Provider Emergency Medicine; PCP Family Medicine
DX: M79.662 Pain in left lower leg (principal); M25.462 Effusion, left knee; M16.12 Unilateral primary osteoarthritis, left hip; E11.65 Type 2 diabetes mellitus with hyperglycemia; R06.82 Tachypnea, not elsewhere classified; I25.10 Atherosclerotic heart disease of native coronary artery without angina pectoris; I10 Essential (primary) hypertension; J44.9 Chronic obstructive pulmonary disease, unspecified; E11.51 Type 2 diabetes mellitus with diabetic peripheral angiopathy without gangrene; E78.5 Hyperlipidemia, unspecified; E03.9 Hypothyroidism, unspecified; G47.33 Obstructive sleep apnea (adult) (pediatric); F17.200 Nicotine dependence, unspecified, uncomplicated; E66.01 Morbid (severe) obesity due to excess calories; Z68.41 Body mass index [BMI] 40.0-44.9, adult; Z86.711 Personal history of pulmonary embolism; Z86.718 Personal history of other venous thrombosis and embolism; Z91.14 Patient's other noncompliance with medication regimen; Z91.19 Patient's noncompliance with other medical treatment and regimen; Z79.01 Long term (current) use of anticoagulants; Z79.84 Long term (current) use of oral hypoglycemic drugs; Z79.899 Other long term (current) drug therapy
CPT/HCPCS: 71045; 73502; 73564; 80048; 83880; 84484; 85025; 93005; 93971; 99285; A4216

== ENCOUNTER 2021-08-11 08:49 | Emergency (ER) | payer MEDICARE, MEDICAID, SELFPAY ==
[2021-08-11 08:50] VITALS: BP 160/77; PULSE 96; RESP 22; TEMP 36.6; O2SAT 96; BMI 41.3
--- NOTE | 2021-08-11 09:15 | ED.VIS.DYS ---
HPI History of Present Illness Chief Complaint: Cough Narrative Narrative: Patient states that he has not had any objective fevers, denies any sick contacts. He denies any nausea vomiting diarrhea., hyperlipidemia, hypothyroidism. Patient reports that over the course the last 3 to 4 days he has been dealing with a cough. States that it is intermittently productive of sputum.'s been associated with wheezing and feelings of shortness of breath. Patient states that he feels like poop.Patient presenting for evaluation secondary to a cough. Patient has a underlying history of COPD, smoking, type 2 diabetes review of systems otherwise negative. [facility] Medical History (Updated 08/11/21 @ 10:[address] Abdirizak Sánchez MD) CAD (coronary artery disease) COPD (chronic obstructive pulmonary disease) Degenerative disc disease Diabetes GERD (gastroesophageal reflux disease) Hyperlipidemia Hypertension Hypothyroidism PVD (peripheral vascular disease) Home Medications albuterol sulfate [Ventolin HFA] 1 puff INHALATION Q4H PRN PRN 11/29/13 [History Last Taken 03/27/20 08:00] duloxetine 60 mg PO BID 11/29/13 [History Last Taken 03/27/20 09:00] gabapentin 300 mg PO QHS 11/29/13 [History Last Taken 03/27/20 09:00] lisinopril 20 mg PO DAILY 11/29/13 [History Last Taken 03/27/20 09:00] metformin 500 mg PO DAILY 11/29/13 [History Last Taken 03/27/20 09:00] omeprazole 40 mg PO DAILY 11/29/13 [History Last Taken 03/27/20 09:00] albuterol sulfate 2.5 mg INHALATION Q2H PRN PRN #1 box 11/30/13 [Rx Last Taken Unknown] levothyroxine 175 mcg PO DAILY@0600 07/17/15 [History Last Taken 03/27/20 09:00] budesonide-formoterol [Symbicort] 2 puff INHALATION BID 04/02/18 [History Last Taken 03/27/20 09:00] atorvastatin 10 mg PO QHS 03/27/20 [History Last Taken 03/27/20 09:00] meclizine 25 mg PO DAILY PRN 03/27/20 [History Last Taken 02/25/20] prednisone 40 mg PO DAILY #10 tab 03/28/20 [Rx Last Taken Unknown] apixaban 5 mg PO BID 08/21/20 [History Last Taken Unknown] albuterol sulfate [Ventolin HFA] 2 puff INHALATION Q4H PRN PRN #6.7 g 08/11/21 [Rx Last Taken Unknown] prednisone 50 mg PO DAILY #5 tab 08/11/21 [Rx Last Taken Unknown] Allergy/AdvReac Type Severity Reaction Status Date / Time latex Allergy Anaphylaxis Verified 08/11/21 08:52 zolmitriptan [From Zomig] Allergy Other Verified 08/11/21 08:52 Social History Smoking Status: Current every day smoker tobacco type: cigarettes ROS ROS ED Constitutional Constitutional ED: Denies chills or fever(s) ENT ENT ED: Denies rhinorrhea Cardiovascular Cardiovascular: Denies chest pain Respiratory/Chest Respiratory/Chest: Reports cough, dyspnea and sputum Gastrointestinal Gastrointestinal: Denies abdominal pain, diarrhea, nausea or vomiting Genitourinary Genitourinary ED: Denies dysuria or hematuria Musculoskeletal Musculoskeletal: Denies back pain Integumentary Denies rash Neurologic Neurologic: Denies paresthesias or weakness Psychiatric Psychiatric: Denies depression Endocrine Endocrinology: Denies fatigue Allergic/Immunologic Allergic/Immunologic ED: Denies urticaria EXAM Physical Exam Const Vital Signs: 08/11/21 08:50 08/11/21 09:19 08/11/21 09:49 Temperature 97.9 F 97.9 F Temperature Source Temporal Temporal Pulse Rate 96 89 87 Respiratory Rate 22 H 21 H 22 H Respiratory Effort Short of Breath Blood Pressure 160/77 H 160/77 H Blood Pressure Mean 104 104 Pulse Ox 96 90 91 Oxygen Delivery Method Room Air Room Air Room Air Positive well nourished, well developed and unkempt General Appearance ED: unkempt, well developed and NAD HEENT Reports moist mucous membranes Negative for trauma or tenderness Eyes EOMs intact bilaterally Neck no lymphadenopathy, supple and no JVD Chest Wall inspection of chest normal Resp normal respiratory effort Resp Narrative: Bilateral. No retractions or accessory muscle use Auscultation: wheezes Cardio regular rate, regular rhythm, no murmurs and peripheral pulses 2+ throughout GI normal to inspection, nondistended, normoactive bowel sounds, non-tender and no masses Palpation: soft Back/Spine normal to inspection Extremity normal to inspection Extremity Narrative: Bilateral lower extermity Significant clubbing of the fingers is noted General Extremety ED: Yes edema; Negative for tenderness General Extremity: edema Neuro oriented x3 and no sensory deficits noted Sensorium / Orientation: alert Motor Exam: strength 5/5 throughout Psych mental status grossly normal Appearance: unkempt Skin no rashes or lesions noted MDM MDM MDM Narrative Medical decision making narrative: Patient presents secondary shortness of breath. He was wheezing he was given breathing treatment in the emergency department. Chest x-ray by my personal review as well as radiology is negative for infiltrate, shows hyperinflation. Covid test was obtained and was noted to be negative. Patient at this point likely has an element of a COPD exacerbation. I do not feel that further work-up is indicated. Patient's pulse ox is are in the low 90s, he has significant clubbing of his fingers I believe that he likely lives there. Patient will be discharged with a course of prednisone, follow-up with primary care. Radiography Diagnostic Testing: Clinical Impression(s) from Imaging Studies Chest X-Ray 08/11/21 09:34 IMPRESSION: Hyperinflation. The lungs are clear. Electronically Signed: Juan Zavala MD at 10:07 EST , Service support , Discharge Plan Triage Chief Complaint: Cough ED Provider: Abdirizak Sánchez Dx/Rx/DC Orders Clinical Impression: COPD exacerbation Instructions: ED COPD Flare Prescriptions: New prednisone 50 mg tablet 50 mg PO DAILY Qty: 5 RF: 0 albuterol sulfate [Ventolin HFA] 90 mcg/actuation HFA aerosol inhaler 2 puff inhalation Q4H PRN PRN (Reason: Wheezing) Qty: 6.7 RF: 0 No Action metformin 500 MG tablet 500 mg PO DAILY RF: 0 lisinopril 20 MG tablet 20 mg PO DAILY RF: 0 gabapentin 300 MG capsule 300 mg PO QHS RF: 0 omeprazole 20 MG capsule 40 mg PO DAILY RF: 0 albuterol sulfate [Ventolin HFA] 1 INHALER inhaler 1 puff inhalation Q4H PRN PRN (Reason: Dyspnea/Wheezing/Sob) RF: 0 duloxetine 60 MG capsule 60 mg PO BID RF: 0 albuterol sulfate 2.5 MG/3 ML solution for nebulization 2.5 mg inhalation Q2H PRN PRN (Reason: SHORTNESS OF BREATH ) Qty: 1 RF: 0 levothyroxine 75 MCG tablet 175 mcg PO DAILY@0600 RF: 0 budesonide-formoterol [Symbicort] 1 INHALER inhaler 2 puff inhalation BID RF: 0 meclizine 25 MG tablet 25 mg PO DAILY PRN (Reason: Dizziness) RF: 0 atorvastatin 10 MG tablet 10 mg PO QHS RF: 0 prednisone 20 MG tablet 40 mg PO DAILY Qty: 10 RF: 0 apixaban 5 MG tablet 5 mg PO BID RF: 0 Primary Care Provider: Yohan Seals Referrals: Yohan Seals MD [Primary Care Provider] - 3-5 Days Disposition Disposition: Home, Self Care
[2021-08-11] MEDS: Albuterol 2.5 MG/3 ML VIAL.NEB. INHALATION (09:17)
[2021-08-11 09:19] VITALS: PULSE 89; RESP 21; O2SAT 90
--- NOTE | 2021-08-11 09:34 | RAD_ITS ---
STUDY: X-RAY CHEST REASON FOR EXAM: Male, 56 years old. 3 day history of shortness of breath. TECHNIQUE: Single AP portable view of the chest. COMPARISON: Comparison is made with prior study dated 08/21/2020. FINDINGS: There is hyperinflation of the lungs consistent with chronic obstructive lung disease (COPD). There is no demonstrated pleural abnormality. Normal size heart. Normal mediastinum and rahda. Normal visualized pulmonary arteries. There is atherosclerotic tortuosity of the aortic arch and descending thoracic aorta. Normal visualized thoracic spine. Normal visualized ribs, clavicles, and shoulders. There is no demonstrated abnormality of the visualized soft tissue structures of the upper abdomen. RAD/Chest 1 View (Portable) IMPRESSION: Hyperinflation. The lungs are clear. Electronically Signed: Juan Zavala MD at 10:07 EST , Service support ,
[2021-08-11 09:49] VITALS: BP 160/77; PULSE 87; PULSE 88; RESP 22; RESP 24; TEMP 36.6; O2SAT 91; O2SAT 92
[2021-08-11 11:27] VITALS: PULSE 88; RESP 22; O2SAT 92
== END 2021-08-11 11:28 | disposition home or self-care (01) ==
PROVIDERS: Emergency Provider Emergency Medicine; PCP Family Medicine
DX: J44.1 Chronic obstructive pulmonary disease with (acute) exacerbation (principal); I25.10 Atherosclerotic heart disease of native coronary artery without angina pectoris; I10 Essential (primary) hypertension; E78.5 Hyperlipidemia, unspecified; E11.51 Type 2 diabetes mellitus with diabetic peripheral angiopathy without gangrene; E03.9 Hypothyroidism, unspecified; K21.9 Gastro-esophageal reflux disease without esophagitis; F17.210 Nicotine dependence, cigarettes, uncomplicated; Z79.01 Long term (current) use of anticoagulants; Z79.84 Long term (current) use of oral hypoglycemic drugs; Z79.899 Other long term (current) drug therapy
CPT/HCPCS: 71045; 87426; 94640; 99282

== ENCOUNTER 2022-02-11 07:37 | Emergency (ER) | payer MEDICARE, MEDICAID, SELFPAY ==
[2022-02-11 07:37] VITALS: BP 162/112; PULSE 85; RESP 14; TEMP 36.6; O2SAT 95; BMI 39.3
--- NOTE | 2022-02-11 07:50 | EDS_ITS ---
HPI History of Present Illness HPI Narrative: Patient presents with pain in his right lower extremity that began yesterday. Patient states it is gradually getting worse. Patient states it is aching and burning. Patient states it feels similar to prior DVT. Patient is on Eliquis for DVT and PE. Patient states his pain is better with standing. Patient denies any paresthesias or weakness. Patient denies any trauma or injury. Chief Complaint: Lower Extremity Injury Informant: patient Onset/Context/Timing Onset: Yesterday Context: Gradual Onset Timing: Continuous Quality of Pain: Aching and Burning Location: Right lower extremity Worsened by: Nothing Relieved by: Standing Associated Symptoms Associated Symptoms: Negative for Parasthesia, Weakness or Loss of Funtion [facility] Medical History CAD (coronary artery disease) COPD (chronic obstructive pulmonary disease) Degenerative disc disease Diabetes GERD (gastroesophageal reflux disease) Hyperlipidemia Hypertension Hypothyroidism PVD (peripheral vascular disease) Home Medications albuterol sulfate 90 mcg/actuation aerosol inhaler (Ventolin HFA) 1 puff inhalation Q4H PRN PRN Dyspnea/Wheezing/Sob 11/29/13 [History Last Taken 03/27/20 08:00] duloxetine 60 mg capsule,delayed release 60 mg PO BID mental health 11/29/13 [History Last Taken 03/27/20 09:00] gabapentin 300 mg capsule 300 mg PO QHS nerve pain 11/29/13 [History Last Taken 03/27/20 09:00] lisinopril 20 mg tablet 20 mg PO DAILY blood pressure 11/29/13 [History Last Taken 03/27/20 09:00] metformin 500 mg tablet 500 mg PO DAILY diabetes 11/29/13 [History Last Taken 03/27/20 09:00] omeprazole 20 mg capsule,delayed release 40 mg PO DAILY reflux 11/29/13 [History Last Taken 03/27/20 09:00] albuterol sulfate 2.5 mg (3 mL) inhalation Q2H PRN PRN SHORTNESS OF BREATH ##1 11/30/13 [Rx Last Taken Unknown] levothyroxine 75 mcg tablet 175 mcg PO DAILY@0600 thyroid 07/17/15 [History Last Taken 03/27/20 09:00] budesonide-formoterol HFA 80 mcg-4.5 mcg/actuation aerosol inhaler (Symbicort) 2 puff inhalation BID breathing 04/02/18 [History Last Taken 03/27/20 09:00] atorvastatin 10 mg tablet 10 mg PO QHS cholesterol 03/27/20 [History Last Taken 03/27/20 09:00] meclizine 25 mg tablet 25 mg PO DAILY PRN Dizziness 03/27/20 [History Last Taken 02/25/20] prednisone 20 mg tablet 40 mg PO DAILY #10 tabs 03/28/20 [Rx Last Taken Unknown] apixaban 5 mg tablet 5 mg PO BID 08/21/20 [History Last Taken Unknown] albuterol sulfate 90 mcg/actuation aerosol inhaler (Ventolin HFA) 2 puff inhalation Q4H PRN PRN Wheezing #6.7 grams 08/11/21 [Rx Last Taken Unknown] prednisone 50 mg tablet 50 mg PO DAILY #5 tabs 08/11/21 [Rx Last Taken Unknown] Allergy/AdvReac Type Severity Reaction Status Date / Time latex Allergy Anaphylaxis Verified 02/11/22 07:39 zolmitriptan [From Zomig] Allergy Other Verified 02/11/22 07:39 Social History Smoking Status: Current every day smoker tobacco type: cigarettes ROS ROS ED Constitutional Constitutional ED: Denies chills or fever(s) Eyes Eyes: Denies blurry vision or change in vision ENT ENT ED: Denies rhinorrhea or sore throat Cardiovascular Cardiovascular: Denies chest pain or palpitations Respiratory/Chest Respiratory/Chest: Denies cough or dyspnea Gastrointestinal Gastrointestinal: Reports nausea; Denies vomiting Genitourinary Genitourinary ED: Denies dysuria or hematuria Musculoskeletal Musculoskeletal: Reports back pain and neck pain Integumentary Denies abscess or rash Neurologic Neurologic: Denies headache(s) or weakness Allergic/Immunologic Allergic/Immunologic ED: Denies mouth swelling or urticaria EXAM Physical Exam Const Vital Signs: 02/11/22 07:37 Temperature 97.9 F Temperature Source Temporal Pulse Rate 85 Respiratory Rate 14 Blood Pressure 162/112 H Blood Pressure Mean 128 Pulse Ox 95 Oxygen Delivery Method Room Air Positive well nourished, well developed, obese and unkempt General Appearance ED: unkempt, well developed and NAD Nutritional Appearance: obese Neck full ROM Extremity Extremity Narrative: There is mild right calf tenderness. There is some mild edema. There is no ecchymosis. There is no deformity. There is good range of motion of the right lower extremity. Pedal pulses are equal bilaterally. Sensation was intact to light touch in all digits. Capillary refill was less than 2 seconds in all digits. Neuro oriented x3, CN's II-XII intact bilaterally, moves all extremities and no sensory deficits noted Sensorium / Orientation: alert Motor Exam: strength 5/5 throughout Psych Appearance: unkempt MDM MDM MDM Narrative Medical decision making narrative: Venous duplex of the right lower extremity was obtained. There is no acute DVT noted in the femoral vein and popliteal vein. Patient states that he is still taking his Eliquis when I remember. CBC shows a mild leukocytosis of 11.1. Basic metabolic profile shows a mild hypokalemia of 3.3 and a glucose of 215 but was otherwise within normal limits. Patient was given a dose of Lovenox here. PT was INR and PTT were within normal limits. Patient was advised to increase his Eliquis to 10 mg twice daily for the next week. Patient was instructed to then go back to 5 mg twice daily. Patient was instructed to return if any chest pain or shortness of breath. Patient was instructed return to the emergency department if worse in any way. Patient understood and was agreeable with the plan. All questions were answered. Lab Data Attestation: I reviewed the patient's lab results. Labs: Laboratory Results - last 24 hr 02/11/22 02/11/22 02/11/22 08:55 08:55 08:55 WBC 11.1 H RBC 5.74 Hgb 16.6 H Hct 50.1 MCV 87.3 MCH 28.9 MCHC 33.1 RDW Std Deviation 44.3 H RDW Coeff of Vin 13.8 Plt Count 299 MPV 10.3 Immature Gran % (Auto) 0.400 Neut % (Auto) 72.2 H Lymph % (Auto) 15.3 L [place] % (Auto) 7.5 Eos % (Auto) 4.0 Baso % (Auto) 0.6 Absolute Neuts (auto) 8.0 H Absolute Lymphs (auto) 1.70 Nucleated RBC % 0 PT Cancelled INR Cancelled APTT Cancelled Sodium 139 Potassium 3.3 L Chloride 105 Carbon Dioxide 27.0 Anion Gap 7 BUN 17 Creatinine 0.90 Estim Creat Clear Calc 99.40 Est GFR (MDRD) Af Amer 112 Est GFR (MDRD) Non-Af 92 BUN/Creatinine Ratio 18.9 Glucose 215 H Calcium 9.1 02/11/22 09:15 WBC RBC Hgb Hct MCV MCH MCHC RDW Std Deviation RDW Coeff of Vin Plt Count MPV Immature Gran % (Auto) Neut % (Auto) Lymph % (Auto) [place] % (Auto) Eos % (Auto) Baso % (Auto) Absolute Neuts (auto) Absolute Lymphs (auto) Nucleated RBC % PT 14.4 INR 1.2 APTT 32.9 Sodium Potassium Chloride Carbon Dioxide Anion Gap BUN Creatinine Estim Creat Clear Calc Est GFR (MDRD) Af Amer Est GFR (MDRD) Non-Af BUN/Creatinine Ratio Glucose Calcium Discharge Plan Triage Chief Complaint: Lower Extremity Injury ED Provider: Gilberto Lorenzo Dx/Rx/DC Orders Clinical Impression: DVT, lower extremity, recurrent, Morbid obesity with BMI of 40.0-44.9, adult Instructions: ED Deep Vein Thrombosis (DVT) Prescriptions: No Action metformin 500 MG tablet 500 mg PO DAILY Label Comments: diabetic medication lisinopril 20 MG tablet 20 mg PO DAILY Label Comments: bp medication gabapentin 300 MG capsule 300 mg PO QHS Label Comments: for neuropathy omeprazole 20 MG capsule 40 mg PO DAILY Label Comments: medication for acid reflux albuterol sulfate [Ventolin HFA] 1 INHALER inhaler 1 puff inhalation Q4H PRN PRN (Reason: Dyspnea/Wheezing/Sob) Label Comments: inhaler for shortness of breath duloxetine 60 MG capsule 60 mg PO BID Label Comments: anti-depressant albuterol sulfate 2.5 MG/3 ML solution for nebulization 2.5 mg inhalation Q2H PRN PRN (Reason: SHORTNESS OF BREATH ) Qty: 1 0RF Label Comments: breathing levothyroxine 75 MCG tablet 175 mcg PO DAILY@0600 Label Comments: thyroid budesonide-formoterol [Symbicort] 1 INHALER inhaler 2 puff inhalation BID meclizine 25 MG tablet 25 mg PO DAILY PRN (Reason: Dizziness) atorvastatin 10 MG tablet 10 mg PO QHS Label Comments: cholesterol prednisone 20 MG tablet 40 mg PO DAILY Qty: 10 0RF Rx Instructions: With Food apixaban 5 MG tablet 5 mg PO BID prednisone 50 mg tablet 50 mg PO DAILY Qty: 5 0RF albuterol sulfate [Ventolin HFA] 90 mcg/actuation HFA aerosol inhaler 2 puff inhalation Q4H PRN PRN (Reason: Wheezing) Qty: 6.7 0RF Primary Care Provider: Yohan Seals Referrals: Yohan Seals MD [Primary Care Provider] - 3-5 Days Activity Restrictions/Additional Instructions: Increase your Eliquis to 10 mg (2 tablets) twice daily for the next week then return to 5 mg (1 tablet) twice daily. Follow-up with your primary care physician in 3 to 5 days. Return to the emergency department if you develop any chest pain or shortness of breath. Disposition Disposition: Home, Self Care
--- NOTE | 2022-02-11 07:55 | VDLE_ITS ---
Reason For Study: Pain RIGHT LEFT GSV is normal. CFV is compressible, spontaneous, phasic, CFV and FV proximal are partially competent, and demonstrates normal compressible with bright intraluminal echoes augmentation. consistent with Chronic DVT. Normal venous flow noted. FV mid is partially noncompressible with minimal flow noted. Acute deep vein thrombosis is noted in the FV distal and PopV. T/P Trunk is compressible. PTV is compressible. RT PerV is compressible. Procedure This is a venous duplex using B-mode, color flow and spectral Doppler. Exam performed portable in ED. A preliminary report was called and/or faxed to [facility]. VL/Venous Duplex US, Unilateral Interpretation Summary Complex venous studies with findings suggesting bright intraluminal echoes cons istent with chronic deep venous thrombosis of the right common femoral and femoral veins. In the di stal right femoral vein and popliteal vein findings are more isoechoic consistent with acute deep venous thrombosis. Patent and compressible right great saphenous vein Normal flow patterns left common femoral vein Ordering Physician: Gilberto Lorenzo Referring Physician: MD Arnel Yohan Performed By: Ruba Espinoza RVT
[2022-02-11 09:05] LABS: Basophil# 0.07 X10^3/uL; Basophil% 0.6 % (0-1); Eosinophil# 0.45 X10^3/uL; Hematocrit 50.1 % (40-54); Hemoglobin 16.6 g/dL (13.0-16.5); Lymphocyte % 15.3 % (19-41); Mean Corp Hgb Conc 33.1 g/dL (32-36); Mean Corpuscular Hgb 28.9 pg (27.0-32.0); Mean Corpuscular Volume 87.3 fL (80-94); Mean Platelet Vol. 10.3 fl (6.2-12.0); Monocyte# 0.83 X10^3/uL; Monocyte% 7.5 % (0-10); NRBC Flagged by Analyzer 0 % (0-5); Neutrophil # 8.03 X10^3/uL (2.7-7.7); Neutrophil % 72.2 % (47-70); Platelet Count 299 K/mm3 (150-450); RBC Distribution Width CV 13.8 % (11.6-14.6); RBC Distribution Width SD 44.3 fl (35.1-43.9); Red Blood Count 5.74 M/mm3 (4.6-6.2); White Blood Count 11.1 K/mm3 (4.4-11.0)
--- NOTE | 2022-02-11 09:08 | NURSING ---
PER LAB, COAGS NEED REDRAW.
[2022-02-11 09:16] LABS: BUN 17 mg/dL (7-18); Glucose 215 mg/dL (74-106)
[2022-02-11 09:17] LABS: Anion Gap 7 (5-15); BUN/Creat Ratio 18.9 RATIO (10-20); Calcium,Total 9.1 mg/dL (8.5-10.1); Chloride 105 mmol/L (98-107); EST Glomerular Filtration Rate 92 mL/min (>60); Est Glom Filt Rate - Afr Amer 112 mL/min (>60); Potassium 3.3 mmol/L (3.5-5.1); Sodium Level 139 mmol/L (136-145)
[2022-02-11] MEDS: Enoxaparin 120 MG/0.8 ML Syringe SC (09:26)
[2022-02-11 09:39] LABS: International Normalized Ratio 1.2; Prothrombin Time (Protime)PT. 14.4 SECONDS (11.7-14.9)
[2022-02-11 09:40] LABS: Partial Thromboplast Time 32.9 Seconds (24.1-36.2)
== END 2022-02-11 10:47 | disposition home or self-care (01) ==
PROVIDERS: Emergency Provider Emergency Medicine; PCP Family Medicine; Visit Provider Emergency Medicine
DX: I82.511 Chronic embolism and thrombosis of right femoral vein (principal); E11.51 Type 2 diabetes mellitus with diabetic peripheral angiopathy without gangrene; J44.9 Chronic obstructive pulmonary disease, unspecified; E66.01 Morbid (severe) obesity due to excess calories; Z68.41 Body mass index [BMI] 40.0-44.9, adult; I25.10 Atherosclerotic heart disease of native coronary artery without angina pectoris; I10 Essential (primary) hypertension; E78.5 Hyperlipidemia, unspecified; E03.9 Hypothyroidism, unspecified; F17.210 Nicotine dependence, cigarettes, uncomplicated; Z79.01 Long term (current) use of anticoagulants; Z79.84 Long term (current) use of oral hypoglycemic drugs; Z79.899 Other long term (current) drug therapy
CPT/HCPCS: 80048; 85025; 85610; 85730; 93971; 96372; 99282; A4216

== ENCOUNTER 2022-11-19 14:13 | Emergency (ER) | payer MEDICARE, MEDICAID, SELFPAY ==
[2022-11-19 14:14] VITALS: BP 120/67; PULSE 91; RESP 19; TEMP 36.6; O2SAT 95; BMI 34.7
--- NOTE | 2022-11-19 14:30 | EKG12_ITS ---
Test Reason : CP Blood Pressure : / mmHG Vent. Rate : 077 BPM Atrial Rate : 077 BPM P-R Int : 142 ms QRS Dur : 096 ms QT Int : 354 ms P-R-T Axes : 031 091 256 degrees QTc Int : 400 ms Sinus rhythm with Premature atrial complexes in a pattern of bigeminy Rightward axis non specific ST-T changes Confirmed by ANABEL LOWERY, ALIS ([id number]), videotape editor OBED YOUNG ([id number]) on 11/23/2022 10:51:06 AM Referred By: BRYANT Confirmed By:JOSEPH LITTLE MD
--- NOTE | 2022-11-19 14:31 | ED.VIS.CHEST ---
HPI History of Present Illness Chief Complaint: Chest Pain Detail of Chief Complaint: Chest pain Informant: patient Narrative Narrative: Patient presents to the emergency department with complaint of chest pain that started last evening. Patient describes a discomfort that he rates about a 3 out of 10. Discomfort has been continuous. He describes it as a weight on his chest. At times pain will radiate to his arms. He has had nausea but no vomiting. Mild shortness of breath. Symptoms have been continuous since last night around 7 PM. Patient has history of PE and DVT and is on Eliquis and states that sometimes he forgets to take his medicine. When he developed the pain last night he states he took 2 Eliquis. Patient denies cough or fever or recent illness. Denies recent travel or surgery. Patient tells me he has had 2 heart caths in the past and his last one was anywhere from 3 to 20 years ago. Patient has no heart stents. [facility] Medical History CAD (coronary artery disease) COPD (chronic obstructive pulmonary disease) Degenerative disc disease Diabetes GERD (gastroesophageal reflux disease) Hyperlipidemia Hypertension Hypothyroidism PVD (peripheral vascular disease) Home Medications albuterol sulfate 90 mcg/actuation aerosol inhaler (Ventolin HFA) 1 puff inhalation Q4H PRN PRN Dyspnea/Wheezing/Sob 11/29/13 [History Last Taken 03/27/20 08:00] duloxetine 60 mg capsule,delayed release 60 mg PO BID mental health 11/29/13 [History Last Taken 03/27/20 09:00] gabapentin 300 mg capsule 300 mg PO QHS nerve pain 11/29/13 [History Last Taken 03/27/20 09:00] lisinopril 20 mg tablet 20 mg PO DAILY blood pressure 11/29/13 [History Last Taken 03/27/20 09:00] metformin 500 mg tablet 500 mg PO DAILY diabetes 11/29/13 [History Last Taken 03/27/20 09:00] omeprazole 20 mg capsule,delayed release 40 mg PO DAILY reflux 11/29/13 [History Last Taken 03/27/20 09:00] albuterol sulfate 2.5 mg/3 mL (0.083 %) solution for nebulization 2.5 mg (3 mL) inhalation Q2H PRN PRN SHORTNESS OF BREATH ##1 11/30/13 [Rx Last Taken Unknown] levothyroxine 75 mcg tablet 175 mcg PO DAILY@0600 thyroid 07/17/15 [History Last Taken 03/27/20 09:00] budesonide-formoterol HFA 80 mcg-4.5 mcg/actuation aerosol inhaler (Symbicort) 2 puff inhalation BID breathing 04/02/18 [History Last Taken 03/27/20 09:00] atorvastatin 10 mg tablet 10 mg PO QHS cholesterol 03/27/20 [History Last Taken 03/27/20 09:00] meclizine 25 mg tablet 25 mg PO DAILY PRN Dizziness 03/27/20 [History Last Taken 02/25/20] prednisone 20 mg tablet 40 mg PO DAILY #10 tabs 03/28/20 [Rx Last Taken Unknown] apixaban 5 mg tablet 5 mg PO BID 08/21/20 [History Last Taken Unknown] albuterol sulfate 90 mcg/actuation aerosol inhaler (Ventolin HFA) 2 puff inhalation Q4H PRN PRN Wheezing #6.7 grams 08/11/21 [Rx Last Taken Unknown] prednisone 50 mg tablet 50 mg PO DAILY #5 tabs 08/11/21 [Rx Last Taken Unknown] Allergy/AdvReac Type Severity Reaction Status Date / Time latex Allergy Anaphylaxis Verified 11/19/22 14:18 zolmitriptan [From Zomig] Allergy Other Verified 11/19/22 14:18 Social History Smoking Status: Current every day smoker tobacco type: cigarettes ROS ROS ED Review of Systems ROS Unobtainable: other Constitutional Constitutional ED: Reports lethargy; Denies chills, fever(s), sweats or weight loss Eyes Eyes: Denies blurry vision, change in vision or diplopia ENT ENT ED: Denies rhinorrhea or sore throat Cardiovascular Cardiovascular: Reports chest pain; Denies orthopnea or racing heartbeat Respiratory/Chest Respiratory/Chest: Reports dyspnea and dyspnea on exertion; Denies cough, orthopnea or sputum Gastrointestinal Gastrointestinal: Reports nausea; Denies abdominal pain, diarrhea or vomiting Genitourinary Genitourinary ED: Denies dysuria, hematuria or urinary frequency Musculoskeletal Musculoskeletal: Denies arthralgias, back pain, myalgias or neck pain Integumentary Denies abscess, Abrasions or rash Neurologic Neurologic: Denies headache(s) or weakness Psychiatric Psychiatric: Denies anxiety, depression or suicidal thoughts Endocrine Endocrinology: Denies polydipsia, polyphagia or polyuria Hematologic/Lymphatic Hematologic/Lymphatic: Denies easy bleeding, easy bruising or lymphadenopathy Allergic/Immunologic Allergic/Immunologic ED: Denies mouth swelling, tongue swelling or urticaria EXAM Physical Exam Const Vital Signs: 11/19/22 14:14 11/19/22 14:19 11/19/22 14:14 Temperature 97.8 F Temperature Source Temporal Pulse Rate 91 Respiratory Rate 19 H Respiratory Effort Normal Non-Labored Blood Pressure 120/67 Blood Pressure Mean 84 Pulse Ox 95 Oxygen Delivery Method Room Air 11/19/22 14:50 11/19/22 15:47 11/19/22 16:33 Temperature Temperature Source Pulse Rate 66 61 Respiratory Rate 18 15 Respiratory Effort Blood Pressure 131/73 H 104/65 Blood Pressure Mean 88 74 Pulse Ox 92 96 Oxygen Delivery Method Room Air 11/19/22 17:11 Temperature Temperature Source Pulse Rate 62 Respiratory Rate 18 Respiratory Effort Blood Pressure 110/91 H Blood Pressure Mean 97 Pulse Ox 97 Oxygen Delivery Method Positive well nourished and well developed General Appearance ED: well developed and NAD HEENT Reports TM's clear and moist mucous membranes normocephalic and atraumatic; Negative for trauma or tenderness Tympanic Membrane ED: Yes TM's clear Eyes PERRL and EOMs intact bilaterally General Eye ED: Negative for pale conjunctiva or scleral icterus Neck no lymphadenopathy, supple and no JVD General: Negative for tenderness Chest Wall inspection of chest normal and palpation of chest normal Chest: Negative for tenderness Resp normal respiratory effort and clear to auscultation bilaterally Effort and Inspection: Negative for respiratory distress or pain with movement Auscultation: Negative for rhonchi, wheezes or diminished lung sounds Cardio regular rate, regular rhythm, S1 normal heart sound, S2 normal heart sound and no murmurs Peripheral Pulses: pulses 2+ throughout GI normal to inspection, nondistended, normoactive bowel sounds, soft to palpation, non-tender, non-distended and no masses Back/Spine no CVA tenderness and no thoracic nor lumbar tenderness Extremity normal to inspection General Extremety ED: Negative for edema General Extremity: Negative for edema Neuro oriented x3, CN's II-XII intact bilaterally, no sensory deficits noted and gait normal Sensorium / Orientation: awake, alert, oriented to person, oriented to place and oriented to time Motor Exam: strength 5/5 throughout and strength abnormal Psych mental status grossly normal Skin no rashes or lesions noted and no wounds Heart Score History: Slightly/Non-Suspicious ECG: Nonspecific Repolarization Age: >45 - <65 years Risk Factors: >/= 3 Risk Factors or History of CAD Troponin: </= Normal Limit Score: 4 MDM MDM MDM Narrative Medical decision making narrative: IV line established on arrival. Patient placed on a quality assurance monitor. EKG obtained showed a sinus rhythm with a rate of [address] changes which when compared with prior EKG it looks similar however may be more pronounced in the lateral leads today. Patient had diffuse T wave inversions. CBC with differential obtained was normal. Chemistries unremarkable. First troponin was normal at 3. D-dimer was 1.30. Because of the elevated D-dimer and intermittent noncompliance with his Eliquis and history of PEs I did obtain a CTA of the chest which was negative for PEs. A delta troponin also was obtained and was normal at 4. Patient has had ongoing pain for approximately 22 hours and normal troponins. I did give him nitro on arrival and he did really did not notice any difference in his discomfort. Patient's heart score is a 4. Clinically I have low suspicion for acute coronary syndrome. Patient advised to follow-up with his primary care physician within next 3 to 5 days. Advised to return if worsening pain, increasing shortness of breath, exertional dyspnea, or condition should worsen anyway. Lab Data Attestation: I reviewed the patient's lab results. Labs: Laboratory Results - last 24 hr 11/19/22 11/19/22 11/19/22 14:57 14:57 14:57 WBC 8.6 RBC 6.11 Hgb 17.6 H Hct 53.2 MCV 87.1 MCH 28.8 MCHC 33.1 RDW Std Deviation 44.4 H RDW Coeff of Vin 13.9 Plt Count 236 MPV 10.1 Immature Gran % (Auto) 0.200 Neut % (Auto) 64.9 Lymph % (Auto) 24.3 [place] % (Auto) 7.4 Eos % (Auto) 2.6 Baso % (Auto) 0.6 Absolute Neuts (auto) 5.6 Absolute Lymphs (auto) 2.08 Nucleated RBC % 0 D-Dimer Quant (PE/DVT) 1.30 H* Sodium 137 Potassium 3.5 Chloride 103 Carbon Dioxide 25.0 Anion Gap 9 BUN 15 Creatinine 0.73 Estim Creat Clear Calc 121.07 Est GFR (MDRD) Af Amer 141 Est GFR (MDRD) Non-Af 116 BUN/Creatinine Ratio 20.5 H Glucose 114 H Calcium 9.1 Troponin I High Sens 3 11/19/22 17:09 WBC RBC Hgb Hct MCV MCH MCHC RDW Std Deviation RDW Coeff of Vin Plt Count MPV Immature Gran % (Auto) Neut % (Auto) Lymph % (Auto) [place] % (Auto) Eos % (Auto) Baso % (Auto) Absolute Neuts (auto) Absolute Lymphs (auto) Nucleated RBC % D-Dimer Quant (PE/DVT) Sodium Potassium Chloride Carbon Dioxide Anion Gap BUN Creatinine Estim Creat Clear Calc Est GFR (MDRD) Af Amer Est GFR (MDRD) Non-Af BUN/Creatinine Ratio Glucose Calcium Troponin I High Sens 4 Radiography Diagnostic Testing: Clinical Impression(s) from Imaging Studies Chest X-Ray 11/19/22 14:55 IMPRESSION: Stable chest. No demonstrated acute cardiopulmonary process. Electronically Signed: Amena Haddad MD at 15:14 EDT , Chest CTA 11/19/22 15:57 IMPRESSION: No demonstrated pulmonary embolism or arterial dissection. Electronically Signed: Mike Mae DO at 16:59 EDT , 1 view chest x-ray obtained interpreted by myself as no evidence of infiltrate or pneumothorax or other acute disease process. Radiology in agreement. EKG Initial EKG: Attestation: I personally reviewed and interpreted this EKG as follows: Comments: Sinus rhythm with a ventricular rate of [address] changes/flipped T waves diffusely. Prior EKG tracings: available for review Prior: Unchanged Management Discussion w/another healthcare provider: Other Discharge Plan Triage Chief Complaint: Chest Pain ED Provider: Farrukh Venegas Dx/Rx/DC Orders Clinical Impression: Chest pain Instructions: ED Chest Pain, Uncertain Cause Prescriptions: No Action metformin 500 MG tablet 500 mg PO DAILY Label Comments: diabetic medication lisinopril 20 MG tablet 20 mg PO DAILY Label Comments: bp medication gabapentin 300 MG capsule 300 mg PO QHS Label Comments: for neuropathy omeprazole 20 MG capsule 40 mg PO DAILY Label Comments: medication for acid reflux albuterol sulfate [Ventolin HFA] 1 INHALER inhaler 1 puff inhalation Q4H PRN PRN (Reason: Dyspnea/Wheezing/Sob) Label Comments: inhaler for shortness of breath duloxetine 60 MG capsule 60 mg PO BID Label Comments: anti-depressant albuterol sulfate 2.5 MG/3 ML solution for nebulization 2.5 mg inhalation Q2H PRN PRN (Reason: SHORTNESS OF BREATH ) Qty: 1 0RF Label Comments: breathing levothyroxine 75 MCG tablet 175 mcg PO DAILY@0600 Label Comments: thyroid budesonide-formoterol [Symbicort] 1 INHALER inhaler 2 puff inhalation BID meclizine 25 MG tablet 25 mg PO DAILY PRN (Reason: Dizziness) atorvastatin 10 MG tablet 10 mg PO QHS Label Comments: cholesterol prednisone 20 MG tablet 40 mg PO DAILY Qty: 10 0RF Rx Instructions: With Food apixaban 5 MG tablet 5 mg PO BID prednisone 50 mg tablet 50 mg PO DAILY Qty: 5 0RF albuterol sulfate [Ventolin HFA] 90 mcg/actuation HFA aerosol inhaler 2 puff inhalation Q4H PRN PRN (Reason: Wheezing) Qty: 6.7 0RF Primary Care Provider: Yohan Seals Referrals: Yohan Seals MD [Primary Care Provider] - 3-5 Days Disposition Disposition: Home, Self Care
[2022-11-19] MEDS: Aspirin 81 MG TAB.CHEW 324 MG PO (14:51)
[2022-11-19] MEDS: 0.9% Normal Saline 1,000 ML 150 ML IV (14:52)
--- NOTE | 2022-11-19 14:55 | RAD_ITS ---
STUDY: X-RAY CHEST REASON FOR EXAM: Male, 57 years old. Chest pain TECHNIQUE: Single AP portable view of the chest. COMPARISON: August 11, 2021 chest x-ray FINDINGS: The lungs are clear and expanded. There is no demonstrated pleural abnormality. Normal size heart. Normal mediastinum and radha. Normal visualized pulmonary arteries. There is atherosclerotic tortuosity of the aortic arch and descending thoracic aorta. Normal visualized thoracic spine. Normal visualized ribs, clavicles, and shoulders. There is no demonstrated abnormality of the visualized soft tissue structures of the upper abdomen. RAD/Chest 1 View (Portable) IMPRESSION: Stable chest. No demonstrated acute cardiopulmonary process. Electronically Signed: Amena Haddad MD at 15:14 EDT ,
[2022-11-19 15:02] LABS: Absolute Lymphocyte Count 2.08 X10^3/uL (0.83-4.51); Absolute Neutrophil Count 5.6 X10^3/uL (2.0-7.7); Basophil# 0.05 X10^3/uL; Basophil% 0.6 % (0-1); Eosinophil# 0.22 X10^3/uL; Eosinophils% 2.6 % (0-5); Hematocrit 53.2 % (40-54); Hemoglobin 17.6 g/dL (13.0-16.5); Lymphocyte # 2.08 X10^3/ul (0.83-4.51); Lymphocyte % 24.3 % (19-41); Mean Corp Hgb Conc 33.1 g/dL (32-36); Mean Corpuscular Hgb 28.8 pg (27.0-32.0); Mean Corpuscular Volume 87.1 fL (80-94); Mean Platelet Vol. 10.1 fl (6.2-12.0); Monocyte# 0.63 X10^3/uL; Monocyte% 7.4 % (0-10); NRBC Flagged by Analyzer 0 % (0-5); Neutrophil # 5.57 X10^3/uL (2.7-7.7); Neutrophil % 64.9 % (47-70); Platelet Count 236 K/mm3 (150-450); RBC Distribution Width CV 13.9 % (11.6-14.6); RBC Distribution Width SD 44.4 fl (35.1-43.9); Red Blood Count 6.11 M/mm3 (4.6-6.2); White Blood Count 8.6 K/mm3 (4.4-11.0)
[2022-11-19 15:27] LABS: Anion Gap 9 (5-15); BUN 15 mg/dL (7-18); BUN/Creat Ratio 20.5 RATIO (10-20); Calcium,Total 9.1 mg/dL (8.5-10.1); Chloride 103 mmol/L (98-107); Creatinine, Serum 0.73 mg/dL (0.70-1.30); EST Glomerular Filtration Rate 116 mL/min (>60); Est Glom Filt Rate - Afr Amer 141 mL/min (>60); Estimated Creatinine Clearance 121.07 ml/min; Glucose 114 mg/dL (74-106); Potassium 3.5 mmol/L (3.5-5.1); Sodium Level 137 mmol/L (136-145); Troponin-I HS (w/2H Reflex) 3 pg/mL (3.0-78.0)
[2022-11-19 15:47] VITALS: BP 131/73; PULSE 66; RESP 18; O2SAT 92
--- NOTE | 2022-11-19 15:57 | CT_ITS ---
STUDY: CTA CHEST REASON FOR EXAM: Male, 57 years old. chest pain, elevated d-dimer RADIATION DOSAGE (If Supplied By Facility): CTDIvol = ( 8.44 ) mGy, DLP = ( 586.95 ) mGycm TECHNIQUE: The examination was performed with the intravenous administration of IV 100mL Isovue-370. Post-processing of the angiographic images was performed, with multiplanar reformation and 3D reconstruction. Individualized dose optimization techniques were used for this CT. COMPARISON: None. FINDINGS: Normal enhancement of the main pulmonary artery and right and left pulmonary arteries. Normal enhancement of the bilateral peripheral pulmonary arteries. There is no demonstrated pulmonary embolism. Normal thoracic aorta and visualized great vessels. There is no demonstrated aortic dissection. Normal heart and pericardium. Normal mediastinum. Normal hilar regions. Normal visualized trachea and bronchi. The lungs are well expanded. Normal pulmonary parenchyma. Normal pleura. Normal chest wall structures. Degenerative vertebral changes. Normal visualized upper abdomen. CT/CTA Chest W/WO Contrast IMPRESSION: No demonstrated pulmonary embolism or arterial dissection. Electronically Signed: Mike Mae DO at 16:59 EDT Reading Location ID and State: [facility] / [place] Tel [phone], Service support ,
[2022-11-19 16:33] VITALS: BP 104/65; PULSE 61; RESP 15; O2SAT 96
[2022-11-19 17:01] LABS: Reflex Troponin-HS? (from REC) Y
[2022-11-19 17:11] VITALS: BP 110/91; PULSE 62; RESP 18; O2SAT 97
[2022-11-19 17:43] LABS: Troponin-I HS 4 pg/mL (3.0-78.0)
== END 2022-11-19 18:19 | disposition home or self-care (01) ==
PROVIDERS: Emergency Provider Emergency Medicine; PCP Family Medicine; Visit Provider Emergency Medicine
DX: R07.9 Chest pain, unspecified (principal); E11.51 Type 2 diabetes mellitus with diabetic peripheral angiopathy without gangrene; J44.9 Chronic obstructive pulmonary disease, unspecified; I25.10 Atherosclerotic heart disease of native coronary artery without angina pectoris; I10 Essential (primary) hypertension; E78.5 Hyperlipidemia, unspecified; E03.9 Hypothyroidism, unspecified; F17.210 Nicotine dependence, cigarettes, uncomplicated; Z91.14 Patient's other noncompliance with medication regimen; Z79.01 Long term (current) use of anticoagulants; Z79.84 Long term (current) use of oral hypoglycemic drugs; Z79.899 Other long term (current) drug therapy; Z86.711 Personal history of pulmonary embolism; Z86.718 Personal history of other venous thrombosis and embolism
CPT/HCPCS: 36415; 71045; 71275; 80048; 84484; 85025; 85379; 93005; 99283; J7030; Q9967; A4216

== ENCOUNTER 2023-06-24 16:40 | Emergency (ER) | payer MEDICARE, MEDICAID, SELFPAY ==
[2023-06-24 16:42] VITALS: BP 121/101; PULSE 90; RESP 14; TEMP 36.6; O2SAT 97; BMI 38.8
[2023-06-24 17:09] VITALS: O2SAT 92
--- NOTE | 2023-06-24 17:09 | EKG12_ITS ---
Test Reason : CHEST PAIN Blood Pressure : / mmHG Vent. Rate : 083 BPM Atrial Rate : 083 BPM P-R Int : 142 ms QRS Dur : 104 ms QT Int : 370 ms P-R-T Axes : 029 106 -04 degrees QTc Int : 434 ms Normal sinus rhythm with sinus arrhythmia Possible Right ventricular hypertrophy Nonspecific T wave abnormality Abnormal ECG Confirmed by ANABEL LOWERY, ALIS ([id number]), assistant production editor OBED YOUNG ([id number]) on 07/05/2023 7:41:41 AM Referred By: Confirmed By:JOSEPH LITTLE MD
--- NOTE | 2023-06-24 17:16 | RAD_ITS ---
INDICATION: chest pain EXAMINATION/TECHNIQUE: X-RAY - XR Chest 1 View COMPARISON: 11/19/2022. FINDINGS: LINES/DEVICES: None. LUNGS: No consolidation, edema or effusion. No pneumothorax. MEDIASTINUM AND CARDIOVASCULAR STRUCTURES: Cardiac silhouette not enlarged. Central airways and mediastinal contour are unremarkable. BONES AND SOFT TISSUES: Unremarkable. RAD/Chest 1 View (Portable) IMPRESSION: No radiographic evidence of acute cardiopulmonary disease. Electronically Signed: Kalyani Michel MD at 17:46 EDT Reading Location ID and State: [id number] / Tel , Service support ,
[2023-06-24 17:21] VITALS: BP 122/68; PULSE 86; RESP 19; O2SAT 92
--- NOTE | 2023-06-24 17:24 | ED.RN ---
PT REPORTS HE IS SUPPOSED TO BE WEARING O2 AT HOME BUT DOESNT BECAUSE IT IS AN INCONVINENCE
[2023-06-24 17:35] LABS: Absolute Lymphocyte Count 1.91 X10^3/uL (0.83-4.51); Absolute Neutrophil Count 9.2 X10^3/uL (2.0-7.7); Basophil# 0.15 X10^3/uL; Basophil% 1.2 % (0-1); Eosinophil# 0.39 X10^3/uL; Hematocrit 55.2 % (40-54); Lymphocyte # 1.91 X10^3/ul (0.83-4.51); Lymphocyte % 14.9 % (19-41); Mean Corp Hgb Conc 32.8 g/dL (32-36); Mean Corpuscular Hgb 29.1 pg (27.0-32.0); Mean Corpuscular Volume 88.7 fL (80-94); Mean Platelet Vol. 10.6 fl (6.2-12.0); Monocyte# 1.15 X10^3/uL; NRBC Flagged by Analyzer 0 % (0-5); Neutrophil # 9.16 X10^3/uL (2.7-7.7); Neutrophil % 71.6 % (47-70); Platelet Count 296 K/mm3 (150-450); RBC Distribution Width CV 14.6 % (11.6-14.6); RBC Distribution Width SD 46.5 fl (35.1-43.9); Red Blood Count 6.22 M/mm3 (4.6-6.2); White Blood Count 12.8 K/mm3 (4.4-11.0)
[2023-06-24 17:43] LABS: Anion Gap 7 (5-15); BUN 23 mg/dL (7-18); BUN/Creat Ratio 23.4 RATIO (10-20); Calcium,Total 9.3 mg/dL (8.5-10.1); Chloride 103 mmol/L (98-107); Creatinine, Serum 0.98 mg/dL (0.70-1.30); EST Glomerular Filtration Rate 83 mL/min (>60); Est Glom Filt Rate - Afr Amer 101 mL/min (>60); Estimated Creatinine Clearance 89.08 ml/min; Glucose 113 mg/dL (74-106); Hemoglobin 18.1 g/dL (13.0-16.5); Potassium 3.6 mmol/L (3.5-5.1); Sodium Level 138 mmol/L (136-145); Troponin-I HS (w/2H Reflex) 5 pg/mL (3.0-78.0)
[2023-06-24] MEDS: Aspirin 81 MG TAB.CHEW 324 MG PO (17:44)
[2023-06-24 18:29] LABS: BNP,B-Type NATRIURETIC PEPTIDE 19.4 pg/mL (0-100)
[2023-06-24] MEDS: Lidocaine 5% Patch 1 PATCH TOPICAL (18:40)
[2023-06-24 19:08] VITALS: BP 150/74; PULSE 76; RESP 21; O2SAT 93
[2023-06-24 19:18] LABS: Reflex Troponin-HS? (from REC) Y
[2023-06-24 19:42] LABS: Troponin-I HS 7 pg/mL (3.0-78.0)
--- NOTE | 2023-06-24 22:29 | EDS_ITS ---
HPI History of Present Illness Chief Complaint: Chest Pain Narrative Narrative: 58-year-old male with history of hypertension, hyperlipidemia, morbid obesity, CAD, LEONEL, COPD, active tobacco use on Eliquis for recurrent DVT presenting with chest pain. He states it is on the left side in the left ribs. He states he was leaning on a bumper for the next day. Time and felt like he hurt his rib. He felt a pop. Hurts when he takes a deep breath and it hurts when he coughs. Denies lightheadedness, dizziness. PFSH PFS Medical History CAD (coronary artery disease) COPD (chronic obstructive pulmonary disease) Degenerative disc disease Diabetes GERD (gastroesophageal reflux disease) Hyperlipidemia Hypertension Hypothyroidism PVD (peripheral vascular disease) Home Medications duloxetine 60 mg capsule,delayed release 60 mg PO BID mental health 11/29/13 [History Last Taken 03/27/20 09:00] gabapentin 300 mg capsule 300 mg PO QHS nerve pain 11/29/13 [History Last Taken 03/27/20 09:00] lisinopril 20 mg tablet 20 mg PO DAILY blood pressure 11/29/13 [History Last Taken 03/27/20 09:00] metformin 500 mg tablet 500 mg PO DAILY diabetes 11/29/13 [History Last Taken 03/27/20 09:00] omeprazole 20 mg capsule,delayed release 40 mg PO DAILY reflux 11/29/13 [History Last Taken 03/27/20 09:00] albuterol sulfate 2.5 mg/3 mL (0.083 %) solution for nebulization 2.5 mg (3 mL) inhalation Q2H PRN PRN SHORTNESS OF BREATH ##1 11/30/13 [Rx Last Taken Unknown] levothyroxine 75 mcg tablet 175 mcg PO DAILY@0600 thyroid 07/17/15 [History Last Taken 03/27/20 09:00] budesonide-formoterol HFA 80 mcg-4.5 mcg/actuation aerosol inhaler (Symbicort) 2 puff inhalation BID breathing 04/02/18 [History Last Taken 03/27/20 09:00] atorvastatin 10 mg tablet 10 mg PO QHS cholesterol 03/27/20 [History Last Taken 03/27/20 09:00] meclizine 25 mg tablet 25 mg PO DAILY PRN Dizziness 03/27/20 [History Last Taken 02/25/20] apixaban 5 mg tablet 5 mg PO BID 08/21/20 [History Last Taken Unknown] albuterol sulfate 90 mcg/actuation aerosol inhaler (Ventolin HFA) 2 puff inhalation Q4H PRN PRN Wheezing #6.7 grams 08/11/21 [Rx Last Taken Unknown] lidocaine 5 % topical patch (Lidoderm) 1 patch topical DAILY PRN pain #15 ea 06/24/23 [Rx Last Taken Unknown] Allergy/AdvReac Type Severity Reaction Status Date / Time latex Allergy Anaphylaxis Verified 06/24/23 16:41 zolmitriptan [From Zomig] Allergy Other Verified 06/24/23 16:41 Social History Smoking Status: Current every day smoker tobacco type: cigarettes EXAM Physical Exam Const Vital Signs: 06/24/23 16:42 06/24/23 17:09 06/24/23 17:21 Temperature 98 F Temperature Source Temporal Pulse Rate 90 86 Respiratory Rate 14 19 H Respiratory Effort Blood Pressure 121/101 H 122/68 H Blood Pressure Mean 107 86 Pulse Ox 97 92 92 Oxygen Delivery Method Room Air Room Air 06/24/23 17:22 06/24/23 19:08 Temperature Temperature Source Pulse Rate 76 Respiratory Rate 21 H Respiratory Effort Short of Breath Blood Pressure 150/74 H Blood Pressure Mean 99 Pulse Ox 93 Oxygen Delivery Method Room Air Positive obese and unkempt General Appearance ED: unkempt Nutritional Appearance: obese HEENT Reports moist mucous membranes normocephalic Eyes PERRL and EOMs intact bilaterally Chest Wall Chest Narrative: Tenderness to palpation over the left ribs in the anterior joint line. No deformity. No crepitance. Equal symmetric breath sounds chest wall rise Resp normal respiratory effort and clear to auscultation bilaterally Auscultation: Negative for rales, rhonchi or wheezes Cardio regular rate and regular rhythm GI normal to inspection, nondistended, normoactive bowel sounds Neuro oriented x3 and CN's II-XII intact bilaterally Sensorium / Orientation: awake and alert Psych mental status grossly normal Appearance: unkempt Skin no rashes or lesions noted MDM MDM MDM Narrative Medical decision making narrative: Patient presenting with left rib pain which he notes started after he was leaning on a bumper and he felt a pop however he does have cardiac risk factors. Most likely this is rib strain versus fracture versus contusion but we determined to do a cardiac work-up today. I did give him a Lidoderm patch. This seems to help his pain. EKG on my interpretation shows a sinus rhythm with a ventricular rate of 83 bpm. Chest x-ray on my interpretation shows no acute process. CBC with a slight leukocytosis at 12.8 and hemoconcentration 18.1. Renal function electrolytes appear normal. He had 2 high-sensitivity troponins 5 and 7 which did not significantly change. BNP is normal at 19.4. Considered PE however the patient is on Eliquis. On reevaluation he is feeling much better. I counseled him I will discharge him home with Lidoderm patches. Discharged stable condition. Impression: 1. Chest pain 2. Left rib contusion Lab Data Attestation: I reviewed the patient's lab results. Labs: Laboratory Results - last 24 hr 06/24/23 06/24/23 17:10 19:07 WBC 12.8 H RBC 6.22 H Hgb 18.1 H* Hct 55.2 H MCV 88.7 MCH 29.1 MCHC 32.8 RDW Std Deviation 46.5 H RDW Coeff of Vin 14.6 Plt Count 296 MPV 10.6 Immature Gran % (Auto) 0.300 Neut % (Auto) 71.6 H Lymph % (Auto) 14.9 L [place] % (Auto) 9.0 Eos % (Auto) 3.0 Baso % (Auto) 1.2 H Absolute Neuts (auto) 9.2 H Absolute Lymphs (auto) 1.91 Nucleated RBC % 0 Diff Path Review May foll Sodium 138 Potassium 3.6 Chloride 103 Carbon Dioxide 28.0 Anion Gap 7 BUN 23 H Creatinine 0.98 Estim Creat Clear Calc 89.08 Est GFR (MDRD) Af Amer 101 Est GFR (MDRD) Non-Af 83 BUN/Creatinine Ratio 23.4 H Glucose 113 H Calcium 9.3 Troponin I High Sens 5 7 B-Natriuretic Peptide 19.4 Radiography Diagnostic Testing: Clinical Impression(s) from Imaging Studies Chest X-Ray 06/24/23 17:16 IMPRESSION: No radiographic evidence of acute cardiopulmonary disease. Electronically Signed: Kalyani Michel MD at 17:46 EDT Reading Location ID and State: [id number] / Tel , Service support , Discharge Plan Triage Chief Complaint: Chest Pain ED Provider: Diego Caruso Dx/Rx/DC Orders Instructions: ED Chest Pain, Noncardiac Prescriptions: New lidocaine [Lidoderm] 5 % adhesive patch,medicated 1 patch topical DAILY PRN (Reason: pain) Qty: 15 0RF Rx Instructions: leave on most painful area for up to 12 hrs No Action metformin 500 MG tablet 500 mg PO DAILY Patient Comments: diabetic medication lisinopril 20 MG tablet 20 mg PO DAILY Patient Comments: bp medication gabapentin 300 MG capsule 300 mg PO QHS Patient Comments: for neuropathy omeprazole 20 MG capsule 40 mg PO DAILY Patient Comments: medication for acid reflux duloxetine 60 MG capsule 60 mg PO BID Patient Comments: anti-depressant albuterol sulfate 2.5 MG/3 ML solution for nebulization 2.5 mg inhalation Q2H PRN PRN (Reason: SHORTNESS OF BREATH ) Qty: 1 0RF Patient Comments: breathing levothyroxine 75 MCG tablet 175 mcg PO DAILY@0600 Patient Comments: thyroid budesonide-formoterol [Symbicort] 1 INHALER inhaler 2 puff inhalation BID meclizine 25 MG tablet 25 mg PO DAILY PRN (Reason: Dizziness) atorvastatin 10 MG tablet 10 mg PO QHS Patient Comments: cholesterol apixaban 5 MG tablet 5 mg PO BID albuterol sulfate [Ventolin HFA] 90 mcg/actuation HFA aerosol inhaler 2 puff inhalation Q4H PRN PRN (Reason: Wheezing) Qty: 6.7 0RF Primary Care Provider: Yohan Seals Referrals: Yohan Seals MD [Primary Care Provider] - Disposition Disposition: Home, Self Care Discharge Date/Time: 06/24/23 19:20
[2023-06-28 08:30] LABS: Pathologist Review Reviewed
== END 2023-06-24 19:20 | disposition home or self-care (01) ==
PROVIDERS: Emergency Provider Student in an Organized Health Care Education/Training Program; PCP Family Medicine; Visit Provider Student in an Organized Health Care Education/Training Program
DX: R07.9 Chest pain, unspecified (principal); E66.01 Morbid (severe) obesity due to excess calories; S20.212A Contusion of left front wall of thorax, initial encounter; F17.210 Nicotine dependence, cigarettes, uncomplicated; I25.10 Atherosclerotic heart disease of native coronary artery without angina pectoris; Z79.01 Long term (current) use of anticoagulants; Z86.718 Personal history of other venous thrombosis and embolism; X58.XXXA Exposure to other specified factors, initial encounter
CPT/HCPCS: 71045; 80048; 83880; 84484; 85025; 93005; 99284; A4216

== ENCOUNTER 2024-07-21 09:47 | Emergency (ER) | payer MEDICARE, MEDICAID, SELFPAY ==
[2024-07-21 09:47] VITALS: BP 148/105; PULSE 85; RESP 14; TEMP 36.8; O2SAT 97
--- NOTE | 2024-07-21 10:00 | VDLE_ITS ---
Reason For Study: LT Calf Pain RIGHT LEFT CFV is compressible, spontaneous, phasic, GSV is normal. competent and demonstrates normal CFV is compressible, spontaneous, phasic, augmentation. competent, and demonstrates normal Procedure augmentation. This is a venous duplex using B-mode, color FV is compressible, spontaneous, phasic, flow and spectral Doppler. competent and demonstrates normal Exam performed portable in ED. augmentation. The exam was diagnostic. Acute deep vein thrombosis is noted in the A preliminary report was called and/or faxed POP V. It is dilated and NONCOMPRESSIBLE. to ED JOSE [place]. Acute deep vein thrombosis is noted in the T/P Trunk. It is dilated and NONCOMPRESSIBLE. PTV is compressible. Acute deep vein thrombosis is noted in the Per V. It is dilated and NONCOMPRESSIBLE. VL/Venous Duplex US, Unilateral Interpretation Summary Acute deep vein thrombosis is noted in the left popliteal vein. Acute deep vein thrombosis is noted in the left tibio-peroneal trunk. Acute deep vein thrombosis is noted in the le ft peroneal vein. The remainder of the left lower extremity deep venous system is patent and compress ible. Valvular competence appears intact within the proximal deep venous system on the left . The left great saphenous vein appears patent and compressible segmentally. The right common fe moral vein is patent and compressible . Ordering Physician: Farrukh Venegas Referring Physician: MD Arnel Yohan Performed By: Chon Mckeon, RVT
--- NOTE | 2024-07-21 10:01 | ED.VIS.LOWEX ---
HPI History of Present Illness Chief Complaint: Lower Extremity Injury Detail of Chief Complaint: Left calf pain Informant: patient Narrative Narrative: Patient presents with left calf pain x 2 days. Patient has history of DVT and history of PE and currently on Eliquis. He states that he sometimes forgets to take his Eliquis because at the end of the month he has some pills left over. He is not sure if he has missed any recently and he is very vague about how regularly he takes it. Patient states that he traveled 2 days ago to [place] which is less than 50 miles away apparently and that is when the pain started. He denies chest pain or shortness of breath. Denies fever. He denies injury to the extremity. [facility] Medical History CAD (coronary artery disease) COPD (chronic obstructive pulmonary disease) Degenerative disc disease Diabetes GERD (gastroesophageal reflux disease) Hyperlipidemia Hypertension Hypothyroidism PVD (peripheral vascular disease) Home Medications ?Medication ?Instructions ?Recorded ?Last Taken ?Type duloxetine 60 mg capsule,delayed 60 mg PO BID mental health 11/29/13 03/27/20 09:00 History release gabapentin 300 mg capsule 300 mg PO QHS nerve pain 11/29/13 03/27/20 09:00 History lisinopril 20 mg tablet 20 mg PO DAILY blood pressure 11/29/13 03/27/20 09:00 History metformin 500 mg tablet 500 mg PO DAILY diabetes 11/29/13 03/27/20 09:00 History omeprazole 20 mg capsule,delayed 40 mg PO DAILY reflux 11/29/13 03/27/20 09:00 History release albuterol sulfate 2.5 mg/3 mL 2.5 mg (3 mL) inhalation Q2H PRN 11/30/13 Unknown Rx (0.083 %) solution for nebulization PRN SHORTNESS OF BREATH ##1 levothyroxine 75 mcg tablet 175 mcg PO DAILY@0600 thyroid 07/17/15 03/27/20 09:00 History budesonide-formoterol HFA 80 2 puff inhalation BID breathing 04/02/18 03/27/20 09:00 History mcg-4.5 mcg/actuation aerosol inhaler (Symbicort) atorvastatin 10 mg tablet 10 mg PO QHS cholesterol 03/27/20 03/27/20 09:00 History meclizine 25 mg tablet 25 mg PO DAILY PRN Dizziness 03/27/20 02/25/20 History apixaban 5 mg tablet 5 mg PO BID 08/21/20 Unknown History albuterol sulfate 90 mcg/actuation 2 puff inhalation Q4H PRN PRN 08/11/21 Unknown Rx aerosol inhaler (Ventolin HFA) Wheezing #6.7 grams lidocaine 5 % topical patch 1 patch topical DAILY PRN pain #15 06/24/23 Unknown Rx (Lidoderm) ea Allergy/AdvReac Type Severity Reaction Status Date / Time latex Allergy Anaphylaxis Verified 07/21/24 09:48 zolmitriptan (From Zomig) Allergy Other Verified 07/21/24 09:48 Social History Smoking Status: Current every day smoker tobacco type: cigarettes ROS ROS ED Review of Systems ROS Unobtainable: other Constitutional Constitutional ED: Reports lethargy; Denies chills, fever(s), sweats or weight loss Eyes Eyes: Denies blurry vision, change in vision or diplopia ENT ENT ED: Denies rhinorrhea or sore throat Cardiovascular Cardiovascular: Denies chest pain, orthopnea or racing heartbeat Respiratory/Chest Respiratory/Chest: Denies cough, dyspnea, dyspnea on exertion, orthopnea or sputum Gastrointestinal Gastrointestinal: Denies abdominal pain, diarrhea, nausea or vomiting Genitourinary Genitourinary ED: Denies dysuria, hematuria or urinary frequency Musculoskeletal Musculoskeletal: Reports other Details: Left calf pain ; Denies arthralgias, back pain, myalgias or neck pain Integumentary Denies abscess, Abrasions or rash Neurologic Neurologic: Denies headache(s) or weakness Psychiatric Psychiatric: Denies anxiety, depression or suicidal thoughts Endocrine Endocrinology: Denies polydipsia, polyphagia or polyuria Hematologic/Lymphatic Hematologic/Lymphatic: Denies easy bleeding, easy bruising or lymphadenopathy Allergic/Immunologic Allergic/Immunologic ED: Denies mouth swelling, tongue swelling or urticaria EXAM Physical Exam Const Vital Signs: 07/21/24 09:47 Temperature 98.3 F Temperature Source Temporal Pulse Rate 85 Respiratory Rate 14 Blood Pressure 148/105 H Blood Pressure Mean 119 Pulse Ox 97 Oxygen Delivery Method Room Air Positive well nourished and well developed General Appearance ED: well developed and NAD HEENT Reports TM's clear and moist mucous membranes normocephalic and atraumatic; Negative for trauma or tenderness Tympanic Membrane ED: Yes TM's clear Eyes PERRL and EOMs intact bilaterally General Eye ED: Negative for pale conjunctiva or scleral icterus Neck no lymphadenopathy, supple and no JVD General: Negative for tenderness Chest Wall inspection of chest normal and palpation of chest normal Chest: Negative for tenderness Resp normal respiratory effort and clear to auscultation bilaterally Effort and Inspection: Negative for respiratory distress or pain with movement Auscultation: Negative for rhonchi, wheezes or diminished lung sounds Cardio regular rate, regular rhythm, S1 normal heart sound, S2 normal heart sound and no murmurs Peripheral Pulses: pulses 2+ throughout GI normal to inspection, nondistended, normoactive bowel sounds, soft to palpation, non-tender, non-distended and no masses Back/Spine no CVA tenderness and no thoracic nor lumbar tenderness Extremity Extremity Narrative: +1 edema both lower extremities. He is got chronic venous stasis changes to the skin bilaterally. No open areas or weeping noted. No cellulitic changes. He does have some tenderness palpation over the left proximal lateral calf. No ropes or cords palpated. Normal dorsal pedal and posterior tibial pulses. Good cap refill. General Extremety ED: Negative for edema General Extremity: Negative for edema Neuro oriented x3, CN's II-XII intact bilaterally, no sensory deficits noted and gait normal Sensorium / Orientation: awake, alert, oriented to person, oriented to place and oriented to time Motor Exam: strength 5/5 throughout and strength abnormal Psych mental status grossly normal Skin no rashes or lesions noted and no wounds MDM MDM MDM Narrative Medical decision making narrative: Patient presents with left calf pain x 2 days with history of DVT and has been apparently quite noncompliant at times with his Eliquis. He states he has more than a full bottle and every month he has leftover medication. He denies chest pain or shortness of breath. Patient had a venous Doppler of the left lower extremity that DVT below the knee of the popliteal vein as well as the TP trunk and peroneal vein. At this point I wanted to discuss case with vascular Dr. Sandoval however the office is closed. Patient tells me he took 10 mg of Eliquis this morning. I would advise him to take 10 mg twice a day for 1 week followed by 5 mg twice a day. I will ask him to follow-up with Dr. Sandoval's office as he will likely require repeat ultrasound to monitor possible progression of DVT. At this time I do not think he has had failure of Eliquis but rather noncompliance issue. Discharge Plan Triage Chief Complaint: Lower Extremity Injury ED Provider: Farrukh Venegas Dx/Rx/DC Orders Clinical Impression: DVT (deep venous thrombosis) Instructions: DVT Tx Prescriptions: No Action metformin 500 MG tablet 500 mg PO DAILY Patient Comments: diabetic medication lisinopril 20 MG tablet 20 mg PO DAILY Patient Comments: bp medication gabapentin 300 MG capsule 300 mg PO QHS Patient Comments: for neuropathy omeprazole 20 MG capsule 40 mg PO DAILY Patient Comments: medication for acid reflux duloxetine 60 MG capsule 60 mg PO BID Patient Comments: anti-depressant albuterol sulfate 2.5 MG/3 ML solution for nebulization 2.5 mg inhalation Q2H PRN PRN (Reason: SHORTNESS OF BREATH ) Qty: 1 0RF Patient Comments: breathing levothyroxine 75 MCG tablet 175 mcg PO DAILY@0600 Patient Comments: thyroid budesonide-formoterol [Symbicort] 1 INHALER inhaler 2 puff inhalation BID meclizine 25 MG tablet 25 mg PO DAILY PRN (Reason: Dizziness) atorvastatin 10 MG tablet 10 mg PO QHS Patient Comments: cholesterol apixaban 5 MG tablet 5 mg PO BID albuterol sulfate [Ventolin HFA] 90 mcg/actuation HFA aerosol inhaler 2 puff inhalation Q4H PRN PRN (Reason: Wheezing) Qty: 6.7 0RF lidocaine [Lidoderm] 5 % adhesive patch,medicated 1 patch topical DAILY PRN (Reason: pain) Qty: 15 0RF Rx Instructions: leave on most painful area for up to 12 hrs Primary Care Provider: Yohan Seals Referrals: Gilberto Sandoval MD [Med Staff - Active Staff] - 5-7 Days Yohan Seals MD [Primary Care Provider] - Activity Restrictions/Additional Instructions: Take 10 mg of Eliquis twice a day for 1 week followed by 5 mg twice a day. Print Language: Italian Disposition Disposition: Home, Self Care
[2024-07-21 10:51] VITALS: BP 136/88; PULSE 72; RESP 15; TEMP 36.3; O2SAT 96
== END 2024-07-21 10:52 | disposition home or self-care (01) ==
PROVIDERS: Emergency Provider Emergency Medicine; PCP Family Medicine; Visit Provider Emergency Medicine
DX: I82.432 Acute embolism and thrombosis of left popliteal vein (principal); J44.9 Chronic obstructive pulmonary disease, unspecified; E11.9 Type 2 diabetes mellitus without complications; I25.10 Atherosclerotic heart disease of native coronary artery without angina pectoris; F17.210 Nicotine dependence, cigarettes, uncomplicated; Z86.718 Personal history of other venous thrombosis and embolism
CPT/HCPCS: 93971; 99282

== ENCOUNTER 2024-12-06 20:19 | Emergency (ER) | payer MEDICARE, MEDICAID, SELFPAY ==
[2024-12-06] VITALS (10 sets, daily range): BP systolic 130–162; BP diastolic 67–92; PULSE 87–100; RESP 18–28; TEMP 36.9; O2SAT 92–95; BMI 42.8
--- NOTE | 2024-12-06 20:36 | RAD_ITS ---
PROCEDURE: CHEST PA AND LATERAL 12/06/2024 REASON FOR EXAM: CONFUSION TECHNIQUE: Frontal and lateral views of the chest. COMPARISON: None FINDINGS: Hardware: None Heart: The heart size is normal. Mediastinum: The mediastinal contour is unremarkable. Lungs: Pulmonary vasculature is congested. Bones: The bones are unremarkable. RAD/Chest PA and Lateral IMPRESSION: Prominent bilateral interstitial markings, concerning for congestion. Reading Location: [facility]
--- NOTE | 2024-12-06 20:36 | EKG12_ITS ---
Test Reason : DYSRHYTHMIA Blood Pressure : */* mmHG Vent. Rate : 89 BPM Atrial Rate : 89 BPM P-R Int : 166 ms QRS Dur : 102 ms QT Int : 368 ms P-R-T Axes : 61 85 5 degrees QTcB Int : 447 ms Normal sinus rhythm Nonspecific ST and T wave abnormality Abnormal ECG Confirmed by Abdirizak Lauren ([id number]), editor managing newspaper BRANDY BLACKMAN ([id number]) on 12/08/2024 7:00:39 AM Referred By: Gilberto Lorenzo Confirmed By: Abdirizak Lauren
--- NOTE | 2024-12-06 20:39 | EDS_ITS ---
HPI History of Present Illness Chief Complaint: Confusion Narrative Narrative: Patient presents with feeling weird that began today. Patient was at [facility] and staff there noticed that he was acting confused. Staff there states the patient hit a sign while he was walking. [facility] staff called EMS. EMS checked his blood sugar and it was in the 200s. Patient had no focal deficits for EMS. Currently, patient is alert and oriented to person, place, and year. Patient is unsure of the month or day. Patient states his symptoms began today and have been gradually getting worse. Patient denies any fevers or chills. Patient does admit to some shortness of breath and wheezing. Patient admits to some dysuria. Patient also admits to headache, neck pain, and back pain. [facility] Medical History (Updated 12/06/24 @ 23:[address] Gilberto Lorenzo, DO) Degenerative disc disease GERD (gastroesophageal reflux disease) PVD (peripheral vascular disease) Hyperlipidemia CAD (coronary artery disease) Diabetes Hypothyroidism Hypertension COPD (chronic obstructive pulmonary disease) Home Medications ?Medication ?Instructions ?Recorded ?Last Taken ?Type duloxetine 60 mg capsule,delayed 60 mg PO BID mental h ealth 11/29/13 03/27/20 09:00 History release gabapentin 300 mg capsule 300 mg PO QHS nerve pain 05/0603/27/20 09:00 History lisinopril 20 mg tablet 20 mg PO DAILY blood pressur e 11/29/13 03/27/20 09:00 History metformin 500 mg tablet 500 mg PO DAILY diabetes 05/0603/27/20 09:00 History omeprazole 20 mg capsule,delayed 40 mg PO DAILY reflux 11/29/13 03/27/20 09:00 History release albuterol sulfate 2.5 mg/3 mL 2.5 mg (3 mL) inhalation Q2H PRN 11/30/13 Unknown Rx (0.083 %) solution for nebulization PRN SHORTNESS OF B REATH ##1 levothyroxine 75 mcg tablet 175 mcg PO DAILY@0600 thyr oid 07/17/15 03/27/20 09:00 History budesonide-formoterol HFA 80 2 puff inhalation BID richardson athing 04/02/18 03/27/20 09:00 History mcg-4.5 mcg/actuation aerosol inhaler (Symbicort) atorvastatin 10 mg tablet 10 mg PO QHS cholesterol 01/0903/27/20 09:00 History meclizine 25 mg tablet 25 mg PO DAILY PRN Dizziness 03/27/20 02/25/20 History apixaban 5 mg tablet 5 mg PO BID 08/21/20 Unknown History albuterol sulfate 90 mcg/actuation 2 puff inhalation Q 4H PRN PRN 08/11/21 Unknown Rx aerosol inhaler (Ventolin HFA) Wheezing #6.7 grams lidocaine 5 % topical patch 1 patch topical DAILY PRN pain #15 06/24/23 Unknown Rx (Lidoderm) ea cephalexin 500 mg capsule 500 mg PO Q6 #12 CAPSULES Unknown Rx Allergy/AdvReac Type Severity Reaction Status Date / Time latex Allergy Anaphylaxis Verified 12/06/24 20:29 zolmitriptan (From Zomig) Allergy Other Verified 12/06/24 20:29 Surgical History (Updated 12/06/24 @ 20:[address] Gilberto Lorenzo DO) Hx of knee surgery Social History Smoking Status: Current every day smoker tobacco type: cigarettes ROS ROS ED Constitutional Constitutional ED: Denies chills or fever(s) Eyes Eyes: Denies blurry vision or change in vision ENT ENT ED: Denies rhinorrhea or sore throat Cardiovascular Cardiovascular: Denies chest pain or palpitations Respiratory/Chest Respiratory/Chest: Reports dyspnea; Denies cough Gastrointestinal Gastrointestinal: Denies nausea or vomiting Genitourinary Genitourinary ED: Reports dysuria; Denies hematuria Musculoskeletal Musculoskeletal: Reports back pain and neck pain Integumentary Denies abscess or rash Neurologic Neurologic: Reports headache(s); Denies weakness Allergic/Immunologic Allergic/Immunologic ED: Denies mouth swelling or urticaria EXAM Physical Exam Const Vital Signs: 12/06/24 20:20 12/06/24 20:35 12/06/24 20:58 Temperature 98.4 F Temperature Source Oral Pulse Rate 96 94 95 Respiratory Rate 18 24 H 26 H Blood Pressure 162/92 H Blood Pressure Mean 115 Pulse Ox 93 93 Oxygen Delivery Method Room Air 12/06/24 21:00 12/06/24 21:15 12/06/24 21:30 Temperature Temperature Source Pulse Rate 100 89 87 Respiratory Rate 27 H 25 H 24 H Blood Pressure 155/78 H 157/67 H Blood Pressure Mean 100 88 Pulse Ox 92 95 Oxygen Delivery Method 12/06/24 21:36 12/06/24 21:45 12/06/24 22:00 Temperature Temperature Source Pulse Rate 89 88 90 Respiratory Rate 24 H 25 H 25 H Blood Pressure 130/69 H 145/75 H Blood Pressure Mean 88 94 Pulse Ox 95 Oxygen Delivery Method 12/06/24 22:15 Temperature Temperature Source Pulse Rate 88 Respiratory Rate 28 H Blood Pressure 143/73 H Blood Pressure Mean 95 Pulse Ox Oxygen Delivery Method Positive well nourished and well developed General Appearance ED: well developed and NAD HEENT Reports moist mucous membranes Neck supple Resp normal respiratory effort Auscultation: wheezes expiratory wheezes and throughout Cardio regular rate and regular rhythm GI non-tender and non-distended Palpation: soft Extremity normal to inspection General Extremety ED: Negative for edema or tenderness General Extremity: Negative for edema Neuro CN's II-XII intact bilaterally and no sensory deficits noted Sensorium / Orientation: alert Motor Exam: strength 5/5 throughout MDM MDM MDM Narrative Medical decision making narrative: Differential diagnosis includes intracranial bleeding, stroke, electrolyte abnormality, dehydration, hypoglycemia, hypothyroidism, hyperthyroidism, urinary tract infection, sepsis, alcohol intoxication, substance abuse, pneumonia, bronchitis, hypercapnia, cardiac dysrhythmia, and cardiac ischemia. EKG will be obtained to assess for cardiac dysrhythmia and cardiac ischemia. CT scan of the brain will be obtained to assess for intracranial bleeding and stroke. Chest x- ray will be obtained to assess for pneumonia and bronchitis. CBC will be obtained to assess for leukocytosis and anemia. Comprehensive metabolic profile will be obtained to assess for hepatic function, renal function, and electrolyte abnormality. PT with INR and PTT will be obtained to assess for coagulopathy. Urinalysis will be obtained to assess for urinary tract infection and hematuria. Serum lactate will be obtained to assess for sepsis. High-sensitivity troponin will be obtained to assess for cardiac ischemia. 2-hour repeat high-sensitivity troponin will be obtained to assess for ongoing cardiac ischemia. COVID-19, influenza, and RSV PCR will be obtained to assess for viral illness. Arterial blood gas will be obtained to assess for hypercapnia and hypoxia. Serum alcohol level will be obtained to assess for alcohol intoxication. Urine tox cream will be obtained to assess for substance abuse. TSH will be obtained to assess for hypothyroidism and hyperthyroidism. History & Record Review Additional record(s) reviewed:: Prior labs Lab Data Attestation: I reviewed the patient's lab results. Lab results narrative: CBC was reviewed. There is a mild leukocytosis of 12.5. This is consistent with previous results. PT with INR and PTT were reviewed and were within normal limits. Comprehensive metabolic profile was reviewed. Glucose was elevated at 397. Anion gap was normal. CO2 was normal. Initial high-sensitivity troponin was reviewed and was normal at 17. Serum lactate was reviewed and was normal at 2.0. TSH was reviewed and was elevated at 30.6. Urinalysis was reviewed. Leukocyte esterase was 100. There are 10-25 white blood cells and 2+ bacteria. Serum alcohol level was reviewed and was less than 10.1. Urine tox screen was reviewed and was positive for cannabinoids. 2-hour repeat high-sensitivity troponin was reviewed and was normal at 18. COVID-19 PCR was reviewed and was negative. Influenza PCR was reviewed and was negative for influenza A and influenza B. RSV PCR was reviewed and was negative. Free T4 was reviewed and was low at 0.30. proBNP was reviewed and was normal at 140. Labs: Laboratory Results - last 24 hr 12/06/24 12/06/24 12/06/24 20:29 21:00 21:08 WBC 12.5 H RBC 5.50 Hgb 16.4 Hct 49.2 MCV 89.5 MCH 29.8 MCHC 33.3 RDW Std Deviation 46.4 H RDW Coeff of Vin 14.0 Plt Count 291 MPV 10.3 Immature Gran % (Auto) 0.400 Neut % (Auto) 76.3 H Lymph % (Auto) 14.0 L [place] % (Auto) 6.9 Eos % (Auto) 1.5 Baso % (Auto) 0.9 Absolute Neuts (auto) 9.6 H Absolute Lymphs (auto) 1.75 Nucleated RBC % 0 PT 13.4 INR 1.0 APTT 29.2 Sodium 136 Potassium 4.2 Chloride 98 Carbon Dioxide 26.7 Anion Gap 12 BUN 18 Creatinine 1.00 Estim Creat Clear Calc 118.78 Est GFR (MDRD) Non-Af 86 BUN/Creatinine Ratio 18.1 Glucose 397 H Lactic Acid 2.0 Calcium 9.3 Total Bilirubin 0.30 AST 26 ALT 22 Alkaline Phosphatase 119 Troponin T High Sens 17 Troponin T Hi Sens 2 Hr NT pro BNP II Total Protein 7.3 Albumin 4.0 Globulin 3.2 Albumin/Globulin Ratio 1.3 TSH 30.600 H Free T4 Urine Color Yellow Urine Clarity Sl. Cloudy Urine pH 6.0 Ur Specific [place] 1.020 Urine Protein 100 H Urine Glucose (UA) 1000 H Urine Ketones 5 H Urine Occult Blood 25 H Urine Nitrite Negative Urine Bilirubin Negative Urine Urobilinogen 1 H Ur Leukocyte Esterase 100 H Urine RBC 0-5 SEEN Urine WBC 10-25 SEEN Ur Squamous Epith Cells 0-5 SEEN Urine Bacteria 2+ Urine Mucus 0 SEEN Urine Opiates Screen NEGATIVE U Buprenorphine Qual NEGATIVE Ur Oxycodone Screen NEGATIVE Urine Methadone Screen NEGATIVE Urine Fentanyl Screen NEGATIVE Ur Barbiturates Screen NEGATIVE Ur Phencyclidine Scrn NEGATIVE Ur Amphetamines Screen NEGATIVE U Benzodiazepines Scrn NEGATIVE Urine Cocaine Screen NEGATIVE U Cannabinoids Screen PRESUMPTIVE POSITIVE Ethyl Alcohol < 10.1 12/06/24 22:35 WBC RBC Hgb Hct MCV MCH MCHC RDW Std Deviation RDW Coeff of Vin Plt Count MPV Immature Gran % (Auto) Neut % (Auto) Lymph % (Auto) [place] % (Auto) Eos % (Auto) Baso % (Auto) Absolute Neuts (auto) Absolute Lymphs (auto) Nucleated RBC % PT INR APTT Sodium Potassium Chloride Carbon Dioxide Anion Gap BUN Creatinine Estim Creat Clear Calc Est GFR (MDRD) Non-Af BUN/Creatinine Ratio Glucose Lactic Acid Calcium Total Bilirubin AST ALT Alkaline Phosphatase Troponin T High Sens Troponin T Hi Sens 2 Hr 18 NT pro BNP II 140 Total Protein Albumin Globulin Albumin/Globulin Ratio TSH Free T4 0.30 L Urine Color Urine Clarity Urine pH Ur Specific [place] Urine Protein Urine Glucose (UA) Urine Ketones Urine Occult Blood Urine Nitrite Urine Bilirubin Urine Urobilinogen Ur Leukocyte Esterase Urine RBC Urine WBC Ur Squamous Epith Cells Urine Bacteria Urine Mucus Urine Opiates Screen U Buprenorphine Qual Ur Oxycodone Screen Urine Methadone Screen Urine Fentanyl Screen Ur Barbiturates Screen Ur Phencyclidine Scrn Ur Amphetamines Screen U Benzodiazepines Scrn Urine Cocaine Screen U Cannabinoids Screen Ethyl Alcohol ABG Data Attestation: I personally reviewed and interpreted this ABG as follows: Interpretation: Arterial blood gas was reviewed. pH was 7.38. pCO2 is slightly elevated at 50.6. pO2 was 61. Oxygen saturation was 90%. Bicarbonate was slightly elevated at 30. CO2 was 32. This was obtained on room air. ABG results: ABG 12/06/24 21:54 Specimen Type ART Sample Site L Radial pH 7.38 Bicarbonate Actual 30.0 H Total CO2 32 Base Excess 5 H O2 Saturation 90 L O2 % 21.0 ABG pCO2 50.6 H ABG pO2 61 L Dilshad Test Positive O2 Delivery Device Room Air Vent Mode Not entered Radiography Diagnostic Testing: Clinical Impression(s) from Imaging Studies Chest X-Ray 12/06/24 20:36 IMPRESSION: Prominent bilateral interstitial markings, concerning for congestion. [facility] 12/06/24 20:45 IMPRESSION: SINUS DISEASE. OTHERWISE UNREMARKABLE NONCONTRAST HEAD CT. Reading Location: [id number] CT scan of the brain was obtained. There is no acute intracranial abnormality. This was interpreted by the radiologist and was also independently reviewed by myself. PA and lateral chest x-ray was obtained. There are 2 views. On my independent interpretation, there are bilateral interstitial markings concerning for congestion. There is no acute infiltrate. Bony thorax is normal. There is no cardiomegaly noted. Radiologist also interpreted the x-rays and agrees. Additional Tests and Interventions Additional Tests or Interventions: Because of the chest x-ray findings, BNP was added on. Because of the elevated TSH, free T4 was added on. Because of the urinalysis results, urine culture was added on. Treatment and Re-Evaluation :: Smoking cessation was discussed. Patient was given IV fluids initially. Patient was given a DuoNeb aerosol. Patient was then given some Lasix after his chest x-ray results. Patient was more awake and alert. Patient is now oriented to person, place, year, and month. Patient is still somewhat confused on the date. I discussed the patient's results with him. He states that he may have missed some of his doses of his levothyroxine. Patient was given a dose of his levothyroxine here. Patient was advised that this could be what was causing his confusion. Patient was also given a dose of Keflex. Patient was given a prescription for Keflex. Case was discussed with the hospitalist. He felt patient could be managed as an outpatient. Patient is agreeable with this. Patient was instructed to continue his levothyroxine as previously prescribed. Patient was instructed to follow-up with his primary care physician in 3 to 5 days. Patient was instructed to return if worse in any way. Patient understood and was agreeable with the plan. All questions were answered. Discharge Plan Triage Chief Complaint: Confusion ED Provider: Gilberto Lorenzo Dx/Rx/DC Orders Clinical Impression: Confusion, Hypothyroidism, COPD (chronic obstructive pulmonary disease), Tobacco use, Diabetes mellitus, type II, Urinary tract infection Instructions: ED Confusion, ED Diabetic Hyperglycemia, ED Hypothyroidism, ED Bladder Infection, Male (Adult) Prescriptions: New cephalexin 500 mg capsule 500 mg PO Q6 Qty: 12 0RF No Action metformin 500 MG tablet 500 mg PO DAILY Patient Comments: diabetic medication lisinopril 20 MG tablet 20 mg PO DAILY Patient Comments: bp medication gabapentin 300 MG capsule 300 mg PO QHS Patient Comments: for neuropathy omeprazole 20 MG capsule 40 mg PO DAILY Patient Comments: medication for acid reflux duloxetine 60 MG capsule 60 mg PO BID Patient Comments: anti-depressant albuterol sulfate 2.5 MG/3 ML solution for nebulization 2.5 mg inhalation Q2H PRN PRN (Reason: SHORTNESS OF BREATH ) Qty: 1 0RF Patient Comments: breathing levothyroxine 75 MCG tablet 175 mcg PO DAILY@0600 Patient Comments: thyroid budesonide-formoterol [Symbicort] 1 INHALER inhaler 2 puff inhalation BID meclizine 25 MG tablet 25 mg PO DAILY PRN (Reason: Dizziness) atorvastatin 10 MG tablet 10 mg PO QHS Patient Comments: cholesterol apixaban 5 MG tablet 5 mg PO BID albuterol sulfate [Ventolin HFA] 90 mcg/actuation HFA aerosol inhaler 2 puff inhalation Q4H PRN PRN (Reason: Wheezing) Qty: 6.7 0RF lidocaine [Lidoderm] 5 % adhesive patch,medicated 1 patch topical DAILY PRN (Reason: pain) Qty: 15 0RF Rx Instructions: leave on most painful area for up to 12 hrs Primary Care Provider: Yohan Seals Referrals: Yohan Seals MD [Primary Care Provider] - 3-5 Days Activity Restrictions/Additional Instructions: Take your thyroid medicine as previously prescribed. Follow-up with your primary care physician in 3 to 5 days for repeat evaluation. Take your antibiotics as prescribed until gone. Print Language: Romansh Disposition Disposition: Home, Self Care
--- NOTE | 2024-12-06 20:45 | CT_ITS ---
PROCEDURE: BRAIN/HEAD WITHOUT CONTRAST 12/06/2024 REASON FOR EXAM: CONFUSION TECHNIQUE: Head CT without intravenous contrast. Coronal and Sagittal reconstruction series were provided. One or more dose reduction techniques were used (e.g., Automated exposure control, adjustment of the mA and/or kV according to patient size, use of iterative reconstruction technique. FINDINGS: Brain: Normal CSF Spaces: Normal Sinuses/Mastoids: Mucosal thickening of the left maxillary sinus consistent with chronic sinusitis. Bones: Unremarkable. CT/Brain/Head without Contrast IMPRESSION: SINUS DISEASE. OTHERWISE UNREMARKABLE NONCONTRAST HEAD CT. Reading Location: [id number]
[2024-12-06 20:50] LABS: Absolute Lymphocyte Count 1.75 X10^3/uL (0.83-4.51); Absolute Neutrophil Count 9.6 X10^3/uL (2.0-7.7); Basophil# 0.11 X10^3/uL; Basophil% 0.9 % (0-1); Eosinophil# 0.19 X10^3/uL; Eosinophils% 1.5 % (0-5); Hematocrit 49.2 % (40-54); Hemoglobin 16.4 g/dL (13.0-16.5); Lymphocyte # 1.75 X10^3/ul (0.83-4.51); Mean Corp Hgb Conc 33.3 g/dL (32-36); Mean Corpuscular Hgb 29.8 pg (27.0-32.0); Mean Corpuscular Volume 89.5 fL (80-94); Mean Platelet Vol. 10.3 fl (6.2-12.0); Monocyte# 0.86 X10^3/uL; Monocyte% 6.9 % (0-10); NRBC Flagged by Analyzer 0 % (0-5); Neutrophil # 9.56 X10^3/uL (2.7-7.7); Neutrophil % 76.3 % (47-70); Platelet Count 291 K/mm3 (150-450); RBC Distribution Width SD 46.4 fl (35.1-43.9); White Blood Count 12.5 K/mm3 (4.4-11.0)
[2024-12-06] MEDS: 0.9% Normal Saline (1000mL) 1,000 ML 1000 ML IV (20:58)
[2024-12-06 21:00] LABS: Prothrombin Time (Protime)PT. 13.4 SECONDS (11.7-14.9)
[2024-12-06 21:01] LABS: Partial Thromboplast Time 29.2 Seconds (24.1-36.2)
[2024-12-06 21:14] LABS: Mucous, Urine 0 SEEN /hpf (<or=2+)
[2024-12-06 21:16] LABS: Color, Urine Yellow (Yellow); Glucose, Dipstick 1000 mg/dl (Normal); Ketone-Dipstick 5 mg/dl (Negative); Leukocyte Esterase-Dipstick 100 /ul (Negative); Nitrite-Dipstick Negative (Negative); Occult Blood-Urine 25 /ul (Negative); Protein-Dipstick 100 mg/dl (Negative); Urine Bilirubin Dipstick Negative (Negative); Urine Clarity Sl. Cloudy (Clear); Urine Urobilinogen 1 mg/dl (Normal)
[2024-12-06 21:33] LABS: ALB/GLOB Ratio 1.3 RATIO (0.9-2.4); AST(SGOT) 26 U/L (<=37); Alanine Aminotransfer ALT/SGPT 22 U/L (<=46); Alkaline Phosphatase 119 U/L (40-129); Anion Gap 12 (5-15); BUN 18 mg/dL (4-19); BUN/Creat Ratio 18.1 RATIO (10-20); Calcium,Total 9.3 mg/dL (7.6-11.0); Carbon Dioxide 26.7 mmol/L (21.0-32.0); Chloride 98 mmol/L (98-108); EST Glomerular Filtration Rate 86 (>60); Estimated Creatinine Clearance 118.78 ml/min (50-250); Globulin 3.2 g/dL (2.2-4.2); Glucose 397 mg/dL (70-99); Potassium 4.2 mmol/L (3.3-5.1); Protein, Total 7.3 g/dL (5.9-8.4); Sodium Level 136 mmol/L (133-145)
[2024-12-06 21:34] LABS: Alcohol, Blood (Medical)-Serum < 10.1 mg/dL (<=10.0)
[2024-12-06] MEDS: Ipratropium/Albuterol Sulfate 3 ML AMPUL.NEB INHALATION (21:36)
[2024-12-06 21:59] LABS: Allen Test Positive; Base Excess 5 mmol/L (-2 to +2); Blood Gas Specimen Type ART; Mode Not entered; O2 Delivery Device Room Air; PO2 61 mmHG (75-100); SITE L Radial; SO2 90 % (95-99); Total Carbon Dioxide 32 mmol/L; pCO2 50.6 mmHg (35-45); pH 7.38 (7.35-7.45)
[2024-12-06 22:00] LABS: Amphetamine Urine NEGATIVE (<1000 ng/mL); Barbiturate Urine NEGATIVE (< 200 ng/mL); Benzodiazepine Urine NEGATIVE (< 200 ng/mL); Buprenorphine Urine NEGATIVE (< 200 ng/mL); Cocaine Urine NEGATIVE (< 300 ng/mL); Fentanyl, Urine NEGATIVE; Methadone Urine NEGATIVE (< 300 ng/mL); Opiates Urine NEGATIVE (< 300 ng/mL); Oxycodone, Urine NEGATIVE (< 100 ng/mL); PCP Urine NEGATIVE (< 25 ng/mL); THC Urine PRESUMPTIVE POSITIVE (< 50 ng/mL)
[2024-12-06 22:17] LABS: Troponin T High Sensitivity 17 ng/L (<=22)
[2024-12-06] MEDS: Furosemide 40 MG/4 ML Vial IV (22:54)
[2024-12-06 23:05] LABS: White Blood Cells 10-25 SEEN /hpf (0-5)
[2024-12-06 23:06] LABS: Bacteria 2+ /hpf (None Seen); Red Blood Cells-Urine 0-5 SEEN /hpf (0-5)
[2024-12-06 23:07] LABS: Squamous Epithelial Cells - UA 0-5 SEEN /hpf (0-5)
[2024-12-06 23:14] LABS: Troponin T High Sens 2 HR 18 ng/L (<=22)
[2024-12-06] MEDS: Levothyroxine 175 MCG Tablet PO (23:23)
[2024-12-06] MEDS: Cephalexin 500 MG Capsule PO (23:23)
[2024-12-06 23:37] LABS: Pro- Brain NATRIURETIC PEPTIDE 140 pg/mL (<=900)
[2024-12-06] MEDS: Insulin Lispro 100 UNIT/ML INSULN.PEN 10 UNIT SC (23:50)
[2024-12-07] VITALS: PULSE 81; RESP 22
[2024-12-07 00:20] VITALS: BP 124/74; PULSE 81; RESP 22; TEMP 36.7; O2SAT 93
[2024-12-07 01:05] LABS: Reflex Lactate? Y
== END 2024-12-07 01:09 | disposition home or self-care (01) ==
PROVIDERS: Emergency Provider Emergency Medicine; PCP Family Medicine; Referring Provider Emergency Medicine; Visit Provider Emergency Medicine
DX: R41.0 Disorientation, unspecified (principal); J44.9 Chronic obstructive pulmonary disease, unspecified; E11.51 Type 2 diabetes mellitus with diabetic peripheral angiopathy without gangrene; N39.0 Urinary tract infection, site not specified; I25.10 Atherosclerotic heart disease of native coronary artery without angina pectoris; E03.9 Hypothyroidism, unspecified; F17.210 Nicotine dependence, cigarettes, uncomplicated; R06.00 Dyspnea, unspecified; Z79.51 Long term (current) use of inhaled steroids; Z79.01 Long term (current) use of anticoagulants; Z79.899 Other long term (current) drug therapy; Z79.84 Long term (current) use of oral hypoglycemic drugs
CPT/HCPCS: 36600; 70450; 71046; 80053; 80307; 81001; 82077; 82803; 83605; 83880; 84439; 84443; 84484; 85025; 85610; 85730; 87077; 87086; 87088; 87186; 87631; 93005; 94640; 96361; 96374; 99285; A4216; J1940

== ENCOUNTER 2025-06-15 10:08 | Emergency (ER) | payer MEDICARE, MEDICAID, SELFPAY ==
[2025-06-15 10:09] VITALS: BP 169/94; PULSE 81; RESP 18; TEMP 36.6; O2SAT 98
--- NOTE | 2025-06-15 10:27 | ED.VIS.LOWEX ---
HPI History of Present Illness Chief Complaint: Lower Extremity Injury Informant: patient and family Narrative Narrative: 60-year-old male presenting to the emergency room with a chief complaint of right knee pain. Patient states for the past several months he has had knee pain and is waiting to see orthopedics until July. He notes swelling of the knee joint and pain with ambulation. He has not seen primary care for this. He has had no prior evaluation. He notes intermittent leg swelling as well as being on anticoagulants for DVT history. He is a long-term tobacco user with history of COPD. Utilizes a cane. He denies any history of gout. No recent fevers or illnesses. He states he had a prior right knee surgery in which the piece of metal. [facility] Medical History Degenerative disc disease GERD (gastroesophageal reflux disease) PVD (peripheral vascular disease) Hyperlipidemia CAD (coronary artery disease) Diabetes Hypothyroidism Hypertension COPD (chronic obstructive pulmonary disease) Home Medications ?Medication ?Instructions ?Recorded ?Last Taken ?Type duloxetine 60 mg capsule,delayed 60 mg PO BID mental health 11/29/13 03/27/20 09:00 History release gabapentin 300 mg capsule 300 mg PO QHS nerve pain 11/29/13 03/27/20 09:00 History lisinopril 20 mg tablet 20 mg PO DAILY blood pressure 11/29/13 03/27/20 09:00 History metformin 500 mg tablet 500 mg PO DAILY diabetes 11/29/13 03/27/20 09:00 History omeprazole 20 mg capsule,delayed 40 mg PO DAILY reflux 11/29/13 03/27/20 09:00 History release albuterol sulfate 2.5 mg/3 mL 2.5 mg (3 mL) inhalation Q2H PRN 11/30/13 Unknown Rx (0.083 %) solution for nebulization PRN SHORTNESS OF BREATH ##1 levothyroxine 75 mcg tablet 175 mcg PO DAILY@0600 thyroid 07/17/15 03/27/20 09:00 History budesonide-formoterol HFA 80 2 puff inhalation BID breathing 04/02/18 03/27/20 09:00 History mcg-4.5 mcg/actuation aerosol inhaler (Symbicort) atorvastatin 10 mg tablet 10 mg PO QHS cholesterol 03/27/20 03/27/20 09:00 History meclizine 25 mg tablet 25 mg PO DAILY PRN Dizziness 03/27/20 02/25/20 History apixaban 5 mg tablet 5 mg PO BID 08/21/20 Unknown History albuterol sulfate 90 mcg/actuation 2 puff inhalation Q4H PRN PRN 08/11/21 Unknown Rx aerosol inhaler (Ventolin HFA) Wheezing #6.7 grams lidocaine 5 % topical patch 1 patch topical DAILY PRN pain #15 06/24/23 Unknown Rx (Lidoderm) ea cephalexin 500 mg capsule 500 mg PO Q6 #12 CAPSULES 12/06/24 Unknown Rx hydrocodone-acetaminophen 5-325mg 1 tab PO Q6H PRN pain 3 days #12 06/15/25 Unknown Rx 5mg-325mg tabs prednisone 20 mg tablet 60 mg (3 x 20 mg) PO DAILY #15 06/15/25 Unknown Rx TABLETS Allergy/AdvReac Type Severity Reaction Status Date / Time latex Allergy Anaphylaxis Verified 06/15/25 10:12 zolmitriptan (From Zomig) Allergy Other Verified 06/15/25 10:12 Surgical History Hx of knee surgery Social History Smoking Status: Current every day smoker tobacco type: cigarettes ROS ROS ED Constitutional Constitutional ED: Denies chills, fever(s) or weight loss Eyes Eyes: Denies change in vision or diplopia ENT ENT ED: Denies ear pain, rhinorrhea or sore throat Cardiovascular Cardiovascular: Denies chest pain, orthopnea, palpitations or racing heartbeat Respiratory/Chest Respiratory/Chest: Reports cough, dyspnea and dyspnea on exertion; Denies orthopnea Gastrointestinal Gastrointestinal: Denies abdominal pain, diarrhea, nausea or vomiting Genitourinary Genitourinary ED: Denies dysuria, hematuria or urinary frequency Musculoskeletal Musculoskeletal: Reports back pain and other Details: Right knee pain times several months ; Denies arthralgias or myalgias Integumentary Denies abscess or rash Neurologic Neurologic: Denies headache(s) or weakness Psychiatric Psychiatric: Denies anxiety, depression, suicidal ideation or suicidal thoughts Endocrine Endocrinology: Denies polydipsia, polyphagia or polyuria Allergic/Immunologic Allergic/Immunologic ED: Denies mouth swelling, tongue swelling or urticaria EXAM Physical Exam Const Vital Signs: 06/15/25 10:09 Temperature 98 F Temperature Source Temporal Pulse Rate 81 Respiratory Rate 18 Blood Pressure 169/94 H Blood Pressure Mean 119 Pulse Ox 98 Oxygen Delivery Method Room Air Positive well nourished, well developed, obese and unkempt General Appearance ED: unkempt, well developed and NAD Nutritional Appearance: obese HEENT Reports normocephalic, head/scalp atraumatic and moist mucous membranes Eyes PERRL and EOMs intact bilaterally Neck no lymphadenopathy, supple and no JVD Resp normal respiratory effort and clear to auscultation bilaterally Cardio regular rate, regular rhythm and no murmurs GI normal to inspection, nondistended, normoactive bowel sounds and non-tender Palpation: soft Back/Spine no CVA tenderness and normal ROM Extremity Extremity Narrative: Right knee demonstrates no overlying skin erythema. There is an obvious suprapatellar effusion. Ligaments appear stable. Calves are nontender no significant lower extremity swelling. There is some mild crepitance with range of motion. General Extremety ED: Negative for edema General Extremity: Negative for edema Neuro oriented x3 and CN's II-XII intact bilaterally Sensorium / Orientation: alert Motor Exam: strength 5/5 throughout Psych mental status grossly normal Appearance: unkempt Mood & Affect: Negative for depressed or tearful Skin no rashes or lesions noted and no wounds MDM MDM MDM Narrative Medical decision making narrative: Differential diagnosis includes osteoarthritis gout inflammatory joint disease bursitis traumatic bursitis internal derangement septic knee My independent interpretation of the plain films is degenerative arthrosis with chondrocalcinosis. There is effusion noted. I spoke with the patient. He does have upcoming orthopedics but not till July. I would encourage him to see if he can get in earlier if possible. We talked about Inocencio wrap as well as possible prednisone. I am hesitant to offer knee joint injection or drainage at this time given the fact that he is on Eliquis with peripheral vascular disease and diabetes. I think that having a proper orthopedic evaluation is paramount. Patient is comfortable with trialing a short course of prednisone. Will have him use an Inocencio wrap. History & Record Review Discussion w/independent historian: Patient and Family Radiography Diagnostic Testing: Clinical Impression(s) from Imaging Studies Knee X-Ray 06/15/25 10:42 IMPRESSION: Tricompartmental arthrosis with chondrocalcinosis No fracture or suspicious osseous lesion Suprapatellar effusion with medial soft tissue swelling Reading Location: [facility] Discharge Plan Triage Chief Complaint: Lower Extremity Injury ED Provider: Kendall Mcconnell Dx/Rx/DC Orders Clinical Impression: Arthrosis of knee, Effusion of knee joint right Instructions: Osteoarthritis Knee, ED Fluid on the Knee Prescriptions: New hydrocodone-acetaminophen 5-325 mg tablet 1 tab PO Q6H PRN (Reason: pain) 3 Days Qty: 12 0RF prednisone 20 mg tablet 60 mg PO DAILY Qty: 15 0RF No Action metformin 500 MG tablet 500 mg PO DAILY Patient Comments: diabetic medication lisinopril 20 MG tablet 20 mg PO DAILY Patient Comments: bp medication gabapentin 300 MG capsule 300 mg PO QHS Patient Comments: for neuropathy omeprazole 20 MG capsule 40 mg PO DAILY Patient Comments: medication for acid reflux duloxetine 60 MG capsule 60 mg PO BID Patient Comments: anti-depressant albuterol sulfate 2.5 MG/3 ML solution for nebulization 2.5 mg inhalation Q2H PRN PRN (Reason: SHORTNESS OF BREATH ) Qty: 1 0RF Patient Comments: breathing levothyroxine 75 MCG tablet 175 mcg PO DAILY@0600 Patient Comments: thyroid budesonide-formoterol [Symbicort] 1 INHALER inhaler 2 puff inhalation BID meclizine 25 MG tablet 25 mg PO DAILY PRN (Reason: Dizziness) atorvastatin 10 MG tablet 10 mg PO QHS Patient Comments: cholesterol apixaban 5 MG tablet 5 mg PO BID albuterol sulfate [Ventolin HFA] 90 mcg/actuation HFA aerosol inhaler 2 puff inhalation Q4H PRN PRN (Reason: Wheezing) Qty: 6.7 0RF lidocaine [Lidoderm] 5 % adhesive patch,medicated 1 patch topical DAILY PRN (Reason: pain) Qty: 15 0RF Rx Instructions: leave on most painful area for up to 12 hrs cephalexin 500 mg capsule 500 mg PO Q6 Qty: 12 0RF Primary Care Provider: Yohan Seals Referrals: Yohan Seals MD [Primary Care Provider, Family Practice] Activity Restrictions/Additional Instructions: For definitive treatment and evaluation I urged you to see orthopedics as scheduled or earlier if possible. With prednisone you can see a rise in your blood sugars temporarily. I have prescribed a short course of hydrocodone for pain. Please review the side effects to include constipation drowsiness confusion etc. Print Language: Swedish Disposition Disposition: Home, Self Care
--- NOTE | 2025-06-15 10:42 | RAD_ITS ---
PROCEDURE: KNEE 4 OR MORE VIEWS 06/15/2025 REASON FOR EXAM: SWELLING AND PAIN TECHNIQUE: Procedure Code: RADKN Modality: DX Procedure: KNEE 4 OR MORE VIEWS Laterality: Right COMPARISON: None FINDINGS: Bones: No fracture or suspicious osseous lesion Joints: Age consistent tricompartmental arthrosis with chondrocalcinosis Effusion: Small suprapatellar effusion Soft tissues: Medial soft tissue swelling Other: RAD/Knee 4 or More Views IMPRESSION: Tricompartmental arthrosis with chondrocalcinosis No fracture or suspicious osseous lesion Suprapatellar effusion with medial soft tissue swelling Reading Location: [id number]
[2025-06-15 12:00] VITALS: BP 156/88; PULSE 86; RESP 19; TEMP 36.7; O2SAT 99
== END 2025-06-15 12:12 | disposition home or self-care (01) ==
PROVIDERS: Emergency Provider Emergency Medicine; PCP Family Medicine; Visit Provider Emergency Medicine
DX: M17.11 Unilateral primary osteoarthritis, right knee (principal); J44.9 Chronic obstructive pulmonary disease, unspecified; E11.9 Type 2 diabetes mellitus without complications; I10 Essential (primary) hypertension; Z86.718 Personal history of other venous thrombosis and embolism; E78.5 Hyperlipidemia, unspecified; I25.10 Atherosclerotic heart disease of native coronary artery without angina pectoris; Z79.01 Long term (current) use of anticoagulants; Z79.899 Other long term (current) drug therapy; Z79.84 Long term (current) use of oral hypoglycemic drugs; K21.9 Gastro-esophageal reflux disease without esophagitis; E03.9 Hypothyroidism, unspecified; Z79.890 Hormone replacement therapy; Z79.51 Long term (current) use of inhaled steroids; F17.210 Nicotine dependence, cigarettes, uncomplicated; M25.461 Effusion, right knee; M25.561 Pain in right knee
CPT/HCPCS: 73564; 99282

== ENCOUNTER 2025-06-24 09:43 | Emergency (ER) | payer MEDICARE, MEDICAID, SELFPAY ==
[2025-06-24] VITALS (7 sets, daily range): BP systolic 142–150; BP diastolic 86–102; PULSE 70–88; RESP 16–22; TEMP 36.4–36.8; O2SAT 93–100; BMI 28.3
--- NOTE | 2025-06-24 10:04 | ED.VIS.DYS ---
HPI History of Present Illness Chief Complaint: Shortness of Breath Narrative Narrative: Patient is a 60-year-old male presenting to the emergency department for generalized weakness. Reportedly the patient was found living in his car covered in feces. Patient has a past medical history of PE, COPD exacerbation, NSTEMI, peripheral vascular disease, type 2 diabetes, hypertension and hyperlipidemia. Patient states that he lives in his car. Reports that he does not eat that much but has lots of cigarettes. He denies being on baseline oxygen for his COPD. States that for the past week or so he has had increased shortness of breath. States he has been smoking a lot. He denies any chest pain. Denies any fever or chills. Denies any new lower extremity edema. He is an extremely poor historian. [facility] Medical History Degenerative disc disease GERD (gastroesophageal reflux disease) PVD (peripheral vascular disease) Hyperlipidemia CAD (coronary artery disease) Diabetes Hypothyroidism Hypertension COPD (chronic obstructive pulmonary disease) Home Medications ?Medication ?Instructions ?Recorded ?Last Taken ?Type duloxetine 60 mg capsule,delayed 60 mg PO BID mental health 11/29/13 03/27/20 09:00 History release gabapentin 300 mg capsule 300 mg PO QHS nerve pain 11/29/13 03/27/20 09:00 History lisinopril 20 mg tablet 20 mg PO DAILY blood pressure 11/29/13 03/27/20 09:00 History metformin 500 mg tablet 500 mg PO DAILY diabetes 11/29/13 03/27/20 09:00 History omeprazole 20 mg capsule,delayed 40 mg PO DAILY reflux 11/29/13 03/27/20 09:00 History release albuterol sulfate 2.5 mg/3 mL 2.5 mg (3 mL) inhalation Q2H PRN 11/30/13 Unknown Rx (0.083 %) solution for nebulization PRN SHORTNESS OF BREATH ##1 levothyroxine 75 mcg tablet 175 mcg PO DAILY@0600 thyroid 07/17/15 03/27/20 09:00 History budesonide-formoterol HFA 80 2 puff inhalation BID breathing 04/02/18 03/27/20 09:00 History mcg-4.5 mcg/actuation aerosol inhaler (Symbicort) atorvastatin 10 mg tablet 10 mg PO QHS cholesterol 03/27/20 03/27/20 09:00 History meclizine 25 mg tablet 25 mg PO DAILY PRN Dizziness 03/27/20 02/25/20 History apixaban 5 mg tablet 5 mg PO BID 08/21/20 Unknown History albuterol sulfate 90 mcg/actuation 2 puff inhalation Q4H PRN PRN 08/11/21 Unknown Rx aerosol inhaler (Ventolin HFA) Wheezing #6.7 grams lidocaine 5 % topical patch 1 patch topical DAILY PRN pain #15 06/24/23 Unknown Rx (Lidoderm) ea cephalexin 500 mg capsule 500 mg PO Q6 #12 CAPSULES 12/06/24 Unknown Rx hydrocodone-acetaminophen 5-325mg 1 tab PO Q6H PRN pain 3 days #12 06/15/25 Unknown Rx 5mg-325mg tabs prednisone 20 mg tablet 60 mg (3 x 20 mg) PO DAILY #15 06/15/25 Unknown Rx TABLETS doxycycline hyclate 100 mg capsule 100 mg PO BID 5 days #10 caps 06/24/25 Unknown Rx prednisone 20 mg tablet 40 mg (2 x 20 mg) PO DAILY 5 days 06/24/25 Unknown Rx #10 tabs Allergy/AdvReac Type Severity Reaction Status Date / Time latex Allergy Anaphylaxis Verified 06/24/25 09:50 zolmitriptan (From Zomig) Allergy Other Verified 06/24/25 09:50 Surgical History Hx of knee surgery Social History Smoking Status: Current every day smoker tobacco type: cigarettes ROS ROS ED ROS Narrative See HPI EXAM Physical Exam Narrative Exam Narrative: Vital signs: Reviewed General: Alert and oriented x 3. No acute distress. Chronically unwell appearing. Dirt on extremities. Foul smelling. HEENT: Head is normocephalic and atraumatic, sinuses nontender, pupils equal round and reactive. Nares are patent. Oropharynx and throat exams normal. Neck: Supple without lymphadenopathy nontender Cardiovascular: Regular rate and rhythm, no murmurs. No rubs or gallops. Normal S1 and S2 Respiratory: Expiratory wheezing heard in all lung gan. No rhonchi or rails. Abdominal: Soft and nontender. Normal bowel sounds. No guarding or rebound. Nonsurgical abdomen Extremities: No asymmetric lower extremity edema. No tenderness. No bruising. Normal range of motion. Normal sensation. Skin: No rash or redness. Neurological: Cranial nerves II through XII are grossly intact. Normal strength and sensation. Normal cerebellar function The rest of the physical exam is unremarkable Const Vital Signs: 06/24/25 09:45 06/24/25 10:46 06/24/25 10:47 Temperature 97.5 F L Temperature Source Oral Pulse Rate 88 86 Respiratory Rate 20 H 16 Respiratory Effort Short of Breath Respiratory Depth Normal Respiratory Pattern Normal Tachypnea Blood Pressure 150/88 H Blood Pressure Mean 108 Pulse Ox 93 Oxygen Delivery Method Room Air Room Air 06/24/25 10:54 06/24/25 12:32 06/24/25 14:00 Temperature Temperature Source Pulse Rate 87 88 70 Respiratory Rate 16 20 H Respiratory Effort Respiratory Depth Respiratory Pattern Blood Pressure 142/102 H 142/99 H 147/86 H Blood Pressure Mean 115 113 106 Pulse Ox 100 93 93 Oxygen Delivery Method Room Air Room Air 06/24/25 14:31 Temperature 98.3 F Temperature Source Pulse Rate 70 Respiratory Rate 22 H Respiratory Effort Respiratory Depth Respiratory Pattern Blood Pressure 147/86 H Blood Pressure Mean 106 Pulse Ox 93 Oxygen Delivery Method MDM MDM MDM Narrative Medical decision making narrative: Patient is a 60-year-old male presenting to the emergency department for shortness of breath that is worsened over the past week. Patient was seen and examined. Vitals are stable. Patient resting in bed comfortably no acute distress. Saturating 93% on room air. Patient had some mild wheezing on exam and given his significant smoking history and COPD think this is likely a COPD exacerbation is causing his symptoms. He was given Solu-Medrol and DuoNeb breathing treatments. Will obtain additional imaging and labs to rule out ACS, PE, pneumonia. EKG shows sinus rhythm with occasional PVCs. There is no significant ST elevation or depression. There is no dysrhythmia. No abnormal T wave inversions. CBC with mild leukocytosis of 14.6 and hemoglobin of 17.7. BMP with mild hyponatremia of 127. Hyperglycemia of 216. Will give fluid bolus. Viral swab negative. Troponin and reflex of 19 and 18. No significant delta change. Given the patient's history of pulmonary embolism and very poor historian will obtain a CTA of the chest to rule this out. CT shows no pulmonary embolus or thoracic aortic aneurysm/dissection. Pulmonary emphysema with possible superimposed interstitial lung disease at the bases. Probable tiny focus of bronchiolitis in the right upper lobe (7 mm) but no consolidating pneumonia or malignancy identified. Follow-up CT chest recommended in 3-6 months. Patient was reevaluated. Lung sounds are more clear. With the patient's mild leukocytosis and interstitial findings on CT will send antibiotics and steroids for home. Patient ambulated with pulse ox and saturated at 93 to 94%. This is expected given his COPD history. Ambulates well with no significant distress. Will for outpatient management. Patient updated on lab and imaging findings. Patient discharged from the Emergency Department. I do not feel that the patient's evaluation reveals any acute reason for admission at this time. I instructed them to either follow-up with their primary care physician or promptly return to the Emergency Department for reevaluation should symptoms worsen or new symptoms develop. I explained what symptoms would indicate the need to return to the emergency department. Shared decision making was used. The patient voiced understanding of the treatment plan and is agreeable with it. Clinical impression COPD exacerbation History & Record Review Discussion w/independent historian: Patient Lab Data Attestation: I reviewed the patient's lab results. Labs: Laboratory Results - last 24 hr 06/24/25 06/24/25 09:55 12:51 WBC 14.6 H RBC 6.30 H Hgb 17.7 H Hct 52.6 MCV 83.5 MCH 28.1 MCHC 33.7 RDW Std Deviation 46.2 H RDW Coeff of Vin 15.6 H Plt Count 197 MPV 9.9 Immature Gran % (Auto) 0.600 Neut % (Auto) 84.4 H Lymph % (Auto) 6.2 L [place] % (Auto) 8.3 Eos % (Auto) 0.1 Baso % (Auto) 0.4 Absolute Neuts (auto) 12.4 H Absolute Lymphs (auto) 0.91 Nucleated RBC % 0 Sodium 127 L Potassium 3.8 Chloride 89 L Carbon Dioxide 25.3 Anion Gap 12 BUN 15 Creatinine 0.63 L Estim Creat Clear Calc 151.42 Est GFR (MDRD) Non-Af 108 BUN/Creatinine Ratio 23.4 H Glucose 216 H Calcium 8.7 Troponin T High Sens 19 D Troponin T Hi Sens 2 Hr 18 Radiography Diagnostic Testing: Clinical Impression(s) from Imaging Studies Chest CTA 06/24/25 12:10 IMPRESSION: 1. No pulmonary embolus or thoracic aortic aneurysm/dissection. 2. Pulmonary emphysema with possible superimposed interstitial lung disease at the bases. 3. Probable tiny focus of bronchiolitis in the right upper lobe (7 mm) but no consolidating pneumonia or malignancy identified. Follow-up CT chest recommended in 3-6 months. Reading Location: [facility] Discharge Plan Triage Chief Complaint: Shortness of Breath ED Provider: Lisa Cobian Dx/Rx/DC Orders Clinical Impression: COPD exacerbation Instructions: COPD Quit Smoking, COPD Meds Prescriptions: New doxycycline hyclate 100 mg capsule 100 mg PO BID 5 Days Qty: 10 0RF prednisone 20 mg tablet 40 mg PO DAILY 5 Days Qty: 10 0RF No Action metformin 500 MG tablet 500 mg PO DAILY Patient Comments: diabetic medication lisinopril 20 MG tablet 20 mg PO DAILY Patient Comments: bp medication gabapentin 300 MG capsule 300 mg PO QHS Patient Comments: for neuropathy omeprazole 20 MG capsule 40 mg PO DAILY Patient Comments: medication for acid reflux duloxetine 60 MG capsule 60 mg PO BID Patient Comments: anti-depressant albuterol sulfate 2.5 MG/3 ML solution for nebulization 2.5 mg inhalation Q2H PRN PRN (Reason: SHORTNESS OF BREATH ) Qty: 1 0RF Patient Comments: breathing levothyroxine 75 MCG tablet 175 mcg PO DAILY@0600 Patient Comments: thyroid budesonide-formoterol [Symbicort] 1 INHALER inhaler 2 puff inhalation BID meclizine 25 MG tablet 25 mg PO DAILY PRN (Reason: Dizziness) atorvastatin 10 MG tablet 10 mg PO QHS Patient Comments: cholesterol apixaban 5 MG tablet 5 mg PO BID albuterol sulfate [Ventolin HFA] 90 mcg/actuation HFA aerosol inhaler 2 puff inhalation Q4H PRN PRN (Reason: Wheezing) Qty: 6.7 0RF lidocaine [Lidoderm] 5 % adhesive patch,medicated 1 patch topical DAILY PRN (Reason: pain) Qty: 15 0RF Rx Instructions: leave on most painful area for up to 12 hrs cephalexin 500 mg capsule 500 mg PO Q6 Qty: 12 0RF hydrocodone-acetaminophen 5-325 mg tablet 1 tab PO Q6H PRN (Reason: pain) 3 Days Qty: 12 0RF prednisone 20 mg tablet 60 mg PO DAILY Qty: 15 0RF Primary Care Provider: Yohan Seals Referrals: Yohan Seals MD [Primary Care Provider, [facility]] - As soon as possible Activity Restrictions/Additional Instructions: Take the steroids and antibiotics as prescribed. Your evaluation in the Emergency Department did not reveal any acute reason for admission. However, I want to emphasize that you may be early in the course of a disease process or illness even if it is not present. For this reason you should follow-up within 24 hours for reevaluation with either your primary care physician or if necessary back here in the Emergency Department. You should return to the Emergency Department immediately if your symptoms worsen or new symptoms develop. Print Language: Amharic Disposition Disposition: Home, Self Care Discharge Date/Time: 06/24/25 14:58
--- NOTE | 2025-06-24 10:32 | EKG12_ITS ---
Test Reason : SOB
[2025-06-24 10:53] LABS: Hematocrit 52.6 % (40-54); Hemoglobin 17.7 g/dL (13.0-16.5); Immature Granulocytes Count 0.090 X10^3/uL (0.0-0.0); Mean Corp Hgb Conc 33.7 g/dL (32-36); Mean Corpuscular Volume 83.5 fL (80-94); Mean Platelet Vol. 9.9 fl (6.2-12.0); NRBC Flagged by Analyzer 0 % (0-5); Platelet Count 197 K/mm3 (150-450); RBC Distribution Width CV 15.6 % (11.6-14.6); RBC Distribution Width SD 46.2 fl (35.1-43.9); Red Blood Count 6.30 M/mm3 (4.6-6.2); White Blood Count 14.6 K/mm3 (4.4-11.0)
[2025-06-24 11:06] LABS: Troponin T High Sensitivity 19 ng/L (<=22)
[2025-06-24 11:20] LABS: Anion Gap 12 (5-15); BUN 15 mg/dL (4-19); BUN/Creat Ratio 23.4 RATIO (10-20); Calcium,Total 8.7 mg/dL (7.6-11.0); Carbon Dioxide 25.3 mmol/L (21.0-32.0); Chloride 89 mmol/L (98-108); Estimated Creatinine Clearance 151.42 ml/min (50-250); Glucose 216 mg/dL (70-99); Potassium 3.8 mmol/L (3.3-5.1)
[2025-06-24] MEDS: 0.9% Normal Saline (1000mL) 1,000 ML 1000 ML IV (11:30)
--- NOTE | 2025-06-24 12:10 | CT_ITS ---
PROCEDURE: CT/CTA Chest W/WO Contrast
[2025-06-24 13:25] LABS: Troponin T High Sens 2 HR 18 ng/L (<=22)
--- NOTE | 2025-06-24 14:16 | ED.RN ---
pt ripped out iv
--- NOTE | 2025-06-25 19:57 | CM.ED ---
Social Work SW consult was entered during a time when no SW was available. Follow up completed next . Consult was placed due to patient being found by EMS to be living in his vehicle, covered in urine and feces, using an electric heater in the vehicle, and no signs of food. SW also noted in EMS reports that patient told EMS that they should kill him and put him out of his misery. SW contacted Annika at crisis for community visit, Annika stated crisis would make contact with patient. SW also contact APS and filed a report with [facility] Huerta stated they would check on patient this week. No further needs noted at this time Alejandra Reyes, CEMENT TILE MAKER, MEDICAL BILLER CODER .
== END 2025-06-24 14:58 | disposition home or self-care (01) ==
PROVIDERS: Emergency Provider Student in an Organized Health Care Education/Training Program; PCP Family Medicine; Visit Provider Student in an Organized Health Care Education/Training Program
DX: J44.1 Chronic obstructive pulmonary disease with (acute) exacerbation (principal); E11.65 Type 2 diabetes mellitus with hyperglycemia; I25.2 Old myocardial infarction; I25.10 Atherosclerotic heart disease of native coronary artery without angina pectoris; E78.5 Hyperlipidemia, unspecified; I10 Essential (primary) hypertension; Z79.899 Other long term (current) drug therapy; Z79.84 Long term (current) use of oral hypoglycemic drugs; K21.9 Gastro-esophageal reflux disease without esophagitis; E03.9 Hypothyroidism, unspecified; Z79.890 Hormone replacement therapy; Z79.51 Long term (current) use of inhaled steroids; F17.210 Nicotine dependence, cigarettes, uncomplicated; Z86.711 Personal history of pulmonary embolism; Z79.01 Long term (current) use of anticoagulants; R06.02 Shortness of breath
CPT/HCPCS: 71275; 80048; 84484; 85025; 87631; 93005; 94640; 96361; 96374; 99285; Q9967; A4216

== ENCOUNTER 2025-08-15 15:57 | Emergency (ER) | payer MEDICARE, MEDICAID, SELFPAY ==
[2025-08-15] VITALS (18 sets, daily range): BP systolic 123–176; BP diastolic 76–91; PULSE 82–102; RESP 17–29; TEMP 36.8; O2SAT 90–99; BMI 41.6
--- NOTE | 2025-08-15 16:09 | EKG12_ITS ---
Test Reason : CHEST PAIN Blood Pressure : */* mmHG Vent. Rate : 97 BPM Atrial Rate : 97 BPM P-R Int : 162 ms QRS Dur : 100 ms QT Int : 336 ms P-R-T Axes : 68 100 59 degrees QTcB Int : 426 ms Normal sinus rhythm Rightward axis Nonspecific ST abnormality Abnormal ECG Confirmed by Maximus Olson ([id number]), newspaper copy editor OBED YOUNG ([id number]) on 08/17/2025 8:02:34 AM Referred By: Confirmed By: Maximus Olson
--- NOTE | 2025-08-15 16:16 | ED.VIS.CHEST ---
HPI History of Present Illness Chief Complaint: Chest Pain Narrative Narrative: Chief complaint and HPI: 60-year-old male with past medical history of GERD, CAD, DM, HTN, DVT on Eliquis, COPD with current tobacco abuse presents for evaluation of chest pain. Patient states that he has been having intermittent chest pain in the left side of his chest for the past week. He describes it as sharp as well as crampy. He states at baseline he has swelling in his bilateral lower extremities in which he takes Lasix. He states he has a chronic cough. He denies any fever, chills, URI symptoms, shortness of breath, abdominal pain, nausea, vomiting. Review of systems: See HPI Medications: As listed on the chart Allergies: As listed on the chart PFSH: Per chart Vital signs: As listed on the chart. Reviewed. Physical exam: Gen: A&O x3, NAD Head: Normocephalic, atraumatic Eyes: No sclera icterus, conjunctiva clear ENT: Moist mucous membranes Neck: Trachea midline, No JVD CV: RRR, no murmurs, minimal bilateral nonpitting peripheral edema Resp: Lungs CTA BL, no w/r/c GI: Abd soft, non-distended, non-tender, no r/r/g Musc: Full ROM, no deformity Skin: Warm, dry Neuro: Alert, oriented, grossly intact, sensation intact Psych: Cooperative, appropriate mood and affect [facility] Medical History Degenerative disc disease GERD (gastroesophageal reflux disease) PVD (peripheral vascular disease) Hyperlipidemia CAD (coronary artery disease) Diabetes Hypothyroidism Hypertension COPD (chronic obstructive pulmonary disease) Home Medications ?Medication ?Instructions ?Recorded ?Last Taken ?Type duloxetine 60 mg capsule,delayed 60 mg PO BID mental health 11/29/13 03/27/20 09:00 History release gabapentin 300 mg capsule 300 mg PO QHS nerve pain 11/29/13 03/27/20 09:00 History lisinopril 20 mg tablet 20 mg PO DAILY blood pressure 11/29/13 03/27/20 09:00 History metformin 500 mg tablet 500 mg PO DAILY diabetes 11/29/13 03/27/20 09:00 History omeprazole 20 mg capsule,delayed 40 mg PO DAILY reflux 11/29/13 03/27/20 09:00 History release albuterol sulfate 2.5 mg/3 mL 2.5 mg (3 mL) inhalation Q2H PRN 11/30/13 Unknown Rx (0.083 %) solution for nebulization PRN SHORTNESS OF BREATH ##1 levothyroxine 75 mcg tablet 175 mcg PO DAILY@0600 thyroid 07/17/15 03/27/20 09:00 History budesonide-formoterol HFA 80 2 puff inhalation BID breathing 04/02/18 03/27/20 09:00 History mcg-4.5 mcg/actuation aerosol inhaler (Symbicort) atorvastatin 10 mg tablet 10 mg PO QHS cholesterol 03/27/20 03/27/20 09:00 History meclizine 25 mg tablet 25 mg PO DAILY PRN Dizziness 03/27/20 02/25/20 History apixaban 5 mg tablet 5 mg PO BID 08/21/20 Unknown History albuterol sulfate 90 mcg/actuation 2 puff inhalation Q4H PRN PRN 08/11/21 Unknown Rx aerosol inhaler (Ventolin HFA) Wheezing #6.7 grams lidocaine 5 % topical patch 1 patch topical DAILY PRN pain #15 06/24/23 Unknown Rx (Lidoderm) ea cephalexin 500 mg capsule 500 mg PO Q6 #12 CAPSULES 12/06/24 Unknown Rx hydrocodone-acetaminophen 5-325mg 1 tab PO Q6H PRN pain 3 days #12 06/15/25 Unknown Rx 5mg-325mg tabs prednisone 20 mg tablet 60 mg (3 x 20 mg) PO DAILY #15 06/15/25 Unknown Rx TABLETS doxycycline hyclate 100 mg capsule 100 mg PO BID 5 days #10 caps 06/24/25 Unknown Rx prednisone 20 mg tablet 40 mg (2 x 20 mg) PO DAILY 5 days 06/24/25 Unknown Rx #10 tabs Allergy/AdvReac Type Severity Reaction Status Date / Time latex Allergy Intermediate Vomiting Verified 08/15/25 15:58 zolmitriptan (From Zomig) Allergy Other Verified 08/15/25 15:58 Surgical History Hx of knee surgery Social History Smoking Status: Current every day smoker tobacco type: cigarettes EXAM Physical Exam Const Vital Signs: 08/15/25 15:57 08/15/25 16:06 08/15/25 16:11 Temperature 98.3 F Temperature Source Oral Pulse Rate 102 H 102 H Respiratory Rate 28 H 24 H Respiratory Effort Labored Respiratory Depth Respiratory Pattern Blood Pressure 154/91 H Blood Pressure Mean 112 Pulse Ox 98 97 Oxygen Delivery Method Room Air 08/15/25 16:15 08/15/25 16:16 08/15/25 16:28 Temperature Temperature Source Pulse Rate 98 100 Respiratory Rate 19 H 25 H Respiratory Effort Short of Breath Labored Respiratory Depth Shallow Respiratory Pattern Tachypnea Blood Pressure 155/76 H Blood Pressure Mean 98 Pulse Ox 96 95 Oxygen Delivery Method Room Air 08/15/25 16:30 08/15/25 16:45 08/15/25 17:00 Temperature Temperature Source Pulse Rate 100 97 94 Respiratory Rate 29 H 23 H 26 H Respiratory Effort Respiratory Depth Respiratory Pattern Blood Pressure 123/86 H 130/80 H 133/81 H Blood Pressure Mean 97 94 96 Pulse Ox 94 91 90 Oxygen Delivery Method 08/15/25 17:15 08/15/25 17:15 08/15/25 17:15 Temperature Temperature Source Pulse Rate 91 91 Respiratory Rate 26 H 26 H Respiratory Effort Respiratory Depth Respiratory Pattern Blood Pressure 132/80 H 132/80 H Blood Pressure Mean 94 94 Pulse Ox 94 94 Oxygen Delivery Method 08/15/25 17:30 08/15/25 17:45 08/15/25 18:00 Temperature Temperature Source Pulse Rate 87 83 Respiratory Rate 21 H 24 H Respiratory Effort Respiratory Depth Respiratory Pattern Blood Pressure 150/87 H Blood Pressure Mean 108 Pulse Ox 99 99 Oxygen Delivery Method MDM MDM MDM Narrative Medical decision making narrative: 60-year-old male with past medical history of GERD, CAD, DM, HTN, DVT on Eliquis, COPD with current tobacco abuse presents for evaluation of chest pain. Patient states that he has been having intermittent chest pain in the left side of his chest for the past week. He describes it as sharp as well as crampy. He states at baseline he has swelling in his bilateral lower extremities in which he takes Lasix. He states he has a chronic cough. On chart review, patient's last echocardiogram was from 2019 in which she had an EF of 75%. Differential diagnosis includes but is not limited to pleurisy, viral illness, pneumonia, ACS, PE, arrhythmia, anemia. Aspirin ordered. Cardiac workup ordered. EKG and chest x-ray reviewed see below. CBC shows a leukocytosis of 16 with a hemoconcentration of 17.2. On chart review he has leukocytosis and hemoconcentration in the past. Platelets unremarkable. BMP shows renal insufficiency with a creatinine of 1.23 with hyperglycemia. Patient is a known diabetic. His renal insufficiency is worse than June at 0.63. Patient states he has been eating and drinking well. May be secondary to his Lasix. His BNP is unremarkable. His D-dimer is elevated at 1.84. Cannot rule out PE. CTA chest ordered with fluid bolus for contrast. Patient's D-dimer has been elevated in the past. Fluids will this will also help the renal insufficiency. Troponin unremarkable x 2. CT of the chest negative for PE or acute cardiopulmonary disease. Mild centrilobular emphysema. 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 On reevaluation, patient is no longer having chest pain. His chest pain is atypical as it has been intermittent for 3 weeks and described as sharp as well as crampy. He states that he is already scheduled for an outpatient stress test in a couple days. I do feel that it is appropriate for patient to discharge home given his unremarkable cardiac workup and him currently not having chest pain. Patient states he would like to discharge home and follow-up outpatient. I recommend him following up with a educational resource coordinator. Recommend him following up with a magazine feeder and to stop quitting smoking. Return precautions were explained. Patient confirmed understand the plan. Patient able to discharge home. EKG: Interpreted by me/EM physician: EKG shows normal sinus rhythm with nonspecific ST changes. Heart rate 97. No prolonged QTc. This is similar to previous EKG in June. Diagnostic: Interpreted by me/EM physician: Chest x-ray without pneumonia, effusion, pneumothorax, cardiomegaly. Chest x-ray similar to previous chest x-ray which were reviewed. Radiology in agreement. Bibasilar subsegmental atelectasis Impression: 1. Chest pain 2. Renal insufficiency 3. Hyperglycemia with known diabetes Lab Data Labs: Laboratory Results - last 24 hr 08/15/25 08/15/25 16:10 18:10 WBC 16.0 H RBC 6.12 Hgb 17.2 H Hct 52.9 MCV 86.4 MCH 28.1 MCHC 32.5 RDW Std Deviation 46.0 H RDW Coeff of Vin 14.7 H Plt Count 378 MPV 10.1 Immature Gran % (Auto) 0.500 Neut % (Auto) 76.4 H Lymph % (Auto) 13.9 L [place] % (Auto) 7.6 Eos % (Auto) 0.9 Baso % (Auto) 0.7 Absolute Neuts (auto) 12.2 H Absolute Lymphs (auto) 2.22 Nucleated RBC % 0 D-Dimer Quant (PE/DVT) 1.84 H* Sodium 142 Potassium 4.1 Chloride 96 Carbon Dioxide 31.5 H Anion Gap 15 BUN 19 Creatinine 1.23 H Estim Creat Clear Calc 93.91 Est GFR (MDRD) Non-Af 67 BUN/Creatinine Ratio 15.4 Glucose 207 H Calcium 9.7 Troponin T High Sens 20 Troponin T Hi Sens 2 Hr 17 NT pro BNP II 179 Radiography Diagnostic Testing: Clinical Impression(s) from Imaging Studies Chest X-Ray 08/15/25 16:20 IMPRESSION: No focal consolidation. Bibasilar subsegmental atelectasis. No acute fractures although if there is concern for rib fractures, consider dedicated rib series or CT for further evaluation. Reading Location: [facility] Chest CTA 08/15/25 17:04 IMPRESSION: No acute cardiopulmonary disease. No pulmonary arterial emboli. Mild centrilobular emphysema. 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 Reading Location: [facility] Discharge Plan Triage Chief Complaint: Chest Pain ED Provider: Chuck Herrera Dx/Rx/DC Orders Prescriptions: No Action metformin 500 MG tablet 500 mg PO DAILY Patient Comments: diabetic medication lisinopril 20 MG tablet 20 mg PO DAILY Patient Comments: bp medication gabapentin 300 MG capsule 300 mg PO QHS Patient Comments: for neuropathy omeprazole 20 MG capsule 40 mg PO DAILY Patient Comments: medication for acid reflux duloxetine 60 MG capsule 60 mg PO BID Patient Comments: anti-depressant albuterol sulfate 2.5 MG/3 ML solution for nebulization 2.5 mg inhalation Q2H PRN PRN (Reason: SHORTNESS OF BREATH ) Qty: 1 0RF Patient Comments: breathing levothyroxine 75 MCG tablet 175 mcg PO DAILY@0600 Patient Comments: thyroid budesonide-formoterol [Symbicort] 1 INHALER inhaler 2 puff inhalation BID meclizine 25 MG tablet 25 mg PO DAILY PRN (Reason: Dizziness) atorvastatin 10 MG tablet 10 mg PO QHS Patient Comments: cholesterol apixaban 5 MG tablet 5 mg PO BID albuterol sulfate [Ventolin HFA] 90 mcg/actuation HFA aerosol inhaler 2 puff inhalation Q4H PRN PRN (Reason: Wheezing) Qty: 6.7 0RF lidocaine [Lidoderm] 5 % adhesive patch,medicated 1 patch topical DAILY PRN (Reason: pain) Qty: 15 0RF Rx Instructions: leave on most painful area for up to 12 hrs cephalexin 500 mg capsule 500 mg PO Q6 Qty: 12 0RF doxycycline hyclate 100 mg capsule 100 mg PO BID 5 Days Qty: 10 0RF prednisone 20 mg tablet 40 mg PO DAILY 5 Days Qty: 10 0RF hydrocodone-acetaminophen 5-325 mg tablet 1 tab PO Q6H PRN (Reason: pain) 3 Days Qty: 12 0RF prednisone 20 mg tablet 60 mg PO DAILY Qty: 15 0RF Primary Care Provider: Marsha Patel Referrals: Yohan Seals MD [Non-Staff, Family Practice] Print Language: Swiss
--- NOTE | 2025-08-15 16:20 | RAD_ITS ---
PROCEDURE: CHEST PA AND LATERAL 08/15/2025 REASON FOR EXAM: CHEST PAIN TECHNIQUE: Procedure Code: RADCXR Modality: DX Procedure: CHEST PA AND LATERAL FINDINGS: No focal consolidation. Bibasilar subsegmental atelectasis. No pleural effusion or pneumothorax. Cardiac silhouette is within normal limits. No acute fractures. No acute fractures although if there is concern for rib fractures, consider dedicated rib series or CT for further evaluation. RAD/Chest PA and Lateral IMPRESSION: No focal consolidation. Bibasilar subsegmental atelectasis. No acute fractures although if there is concern for rib fractures, consider ded icated rib series or CT for further evaluation. Reading Location: [id number]
--- OUTSIDE RECORDS SUMMARY | 2025-08-15 16:42 | XMS RPT_ITS | CCD ---
Author Organization [facility] Care Team Providers Care Unit Tender Name Role Phone Kaushik Seals MD Primary Care Provider Kaushik Seals MD Primary Care Provider Mu SENIOR CORPORATE STRATEGY MANAGER.Shaye PATRICK Unavailable Miguel SENIOR CORPORATE STRATEGY MANAGER.Micky PATRICK Unavailable Dr. Kausihk Seals MD Primary Care Provider Dr. Gilberto Lroenzo DO Referring Provider Dr. Gilberto Lorenzo DO Emergency Provider [facility], [place]y Unavailable KAUSHIK SEALS Primary Care Unavailable KAUSHIK SEALS Primary Care Unavailable SHAYE DOBBINS Attending UnavailKAUSHIK Palma Primary Care Unavailable SHAYE DOBIBNS Referring UnavailKAUSHIK Palma Primary Care Unavailable SHAYE DOBBINS Referring UnavailKAUSHIK Palma Primary Care Unavailable SHAYE DOBBINS Referring UnavailKAUSHIK Palma Primary Care Unavailable GEORGIE BARRETO Attending Unavailable MICKY CABEZAS Attending Unavailable KAUSHIK SEALS Primary Care Unavailable SHAYE DOBBINS Referring UnavailKAUSHIK Palma Primary Care Unavailable MICKY CABEZAS Referring Unavailable KAUSHIK SEALS Primary Care Unavailable JILLIAN WRIGHT Attending Unavailable KAUSHIK SEALS Primary Care Unavailable KAUSHIK SEALS Primary Care Unavailable KAUSHIK SEALS Primary Care Unavailable KAUSHIK SEALS Attending Unavailable KAUSHIK SEALS Primary Care Unavailable KAUSHIK SEALS Referring Unavailable KAUSHIK SEALS Primary Care Unavailable Farrukh Venegas Attending Unavailable Kaushik Seals Primary Care Unavailable Gilberto Lorenzo Attending Unavailable Gilberto Lorenzo Referring Unavailable Kaushik Seals Primary Care Unavailable Kaushik Seals Primary Care Unavailable Kendall Mcconnell Attending Unavailable Lisa Cobian Attending Unavailable Kaushik Seals Primary Care Unavailable Allergies Allergy Classification Reported Allergen(s) Allergy Type Date of Onset Reaction(s) Facility (20 sources) Latex; Translations: [LATEX] Drug Intolerance 9 Intolerance [facility] Work Phone: (20 sources) ZOLMitriptan; Translations: [ZOLMITRIPTAN] Drug Allergy 5 Mental Status Change [facility] Work Phone: (1 source) Latex Drug allergy (disorder) 5 [facility] Repository (1 source) ZOLMitriptan Drug Allergy 5 [facility] Repository Medications Current Medications Medication Drug Class(es) Dates Sig (Normalized) Sig (Original) [id number] 200 actuat albuterol 0.09 mg/actuat metered dose inhaler (20 sources) beta2-Adrenergic Agonist Start: 09-07-2023 End: 10-18-2024 take 2 puff(s) by mouth every four hours as needed albuterol HFA (VENTOLIN HFA) 90 mcg/actuation inhaler Indications: Chronic obstructive pulmonary disease, unspecified COPD type (HCC) INHALE 2 PUFFS ORALLY DIRECTED EVERY 4 HOURS NEEDED 18 g 11 10/18/2024 Active Start: 08-11-2021 Albuterol Sulf ate (Ventolin Hfa) 90 mcg/actuation HFA aerosol inhaler Active 2 NMA INHALATION EVERY 4 HOURS NEEDED as needed for Wheezing 6.7 August 11, 2021 1:00am Start: 08-11-2021 take 1 puff(s) by in halation every four hours as needed Albuterol Sulfate (Ventolin Hfa) 90 mcg/actuation HFA aerosol inhaler Active 2 PUFF INHALATION EVERY 4 HOURS NEEDED 6.7 August 11, 2021 1:00am Start: 02-02-2020 End: 09-05-2022 take 2 puff(s) by mouth every four hours as needed albuterol HFA (VENTOLIN HFA) 90 mcg/actuation inhaler Indications: Chronic obstructive pulmonary disease, unspecified COPD type (HCC) INHALE 2 PUFFS ORALLY DIRECTED EVERY 4 HOURS NEEDED 18 g 11 09/05/2022 Active Start: 11-30-2013 take 2.5 mg by inhal ation every two hours as needed Albuterol Sulfate 2.5 MG/3 ML solution for nebulization Active 2.5 mg INHALATION EVERY 2 HOURS NEEDED as needed for SHORTNESS OF BREATH 1 November 30, 2013 12:00am Start: 11-29-2013 take 1 puff(s) by in halation every four hours as needed Albuterol Sulfate (Ventolin Hfa) 1 INHALER inhaler Active 1 PUFF INHALATION EVERY 4 HOURS NEEDED November 29, 2013 12:00am Comment on above: INHALE 2 PUFFS ORALL Y DIRECTED EVERY 4 HOURS NEEDED albuterol 0.833 mg/ml / ipratropium bromide 0.167 mg/ml inhalation solution (7 sources) Anticholinergic, beta2-Adrenergic Agonist Start: 02-07-20 take 3 mL by inhalation every six hours as needed for wheezing ipratropium-albuterol (DUONEB) 0.5 mg-3 mg(2.5 mg base)/3 mL nebu Indications: Stage 3 severe COPD by GOLD classification (HCC) Inhale 3 mL as instructed every 6 hours as needed for wheezing/shortness of breath. 360 mL 3 02/06/2025 Active apixaban 5 mg oral tablet (20 sources) Factor Xa Inhibitor Start: 03-15-20 24 take 1 tablet by mouth twice daily apixaban (ELIQUIS) 5 mg tab(s) Indications: Acute pulmonary embolism, unspecified pulmonary embolism type, unspecified whether acute cor pulmonale present (HCC) Take 1 tablet by mouth two times a day. 60 tablet 03/15/2024 Active Start: 08-21-2020 End: 03-05-2023 take 1 tablet by mouth twice daily apixaban (ELIQUIS) 5 mg tab(s) Indications: Acute pulmonary embolism, unspecified pulmonary embolism type, unspecified whether acute cor pulmonale present (HCC) Take 1 tablet by mouth two times a day. 60 tablet 1 09/07/2023 Active Start: 03-28-2020 End: 08-21-2020 take 2 tablets by mouth twice daily, then take 1 tablet by mouth twice daily Apixaban 5 MG tablet Discontinued 10 mg PO TWICE A DAY 72 March 28, 2020 12:00am August 21, 2020 8:32pm 10 mg po BID x 13 more doses, then 5 mg po BID after that Start: 03-28-2020 End: 08-21-2020 take 10 mg by mouth twice daily, then take 5 mg by mouth twice daily Apixaban Discontinued 10 MG PO TWICE A DAY 72 March 28, 2020 12:00am August 21, 2020 8:32pm 10 mg po BID x 13 more doses, then 5 mg po BID after that Comment on above: Take 1 tablet by patricia th twice daily. atorvastatin 40 mg oral tablet (20 sources) HMG-CoA Reductase Inhibitor Start: take 1 tablet by mouth once daily atorvastatin (LIPITOR) 40 mg tablet Indications: Type 2 diabetes, controlled, with neuropathy (HCC) Take 1 tablet by mouth once daily. 90 tablet 1 02/05/2025 Active Start: 09-07-2023 End: 02-05-2025 take 1 tablet by mouth once daily atorvastatin (LIPITOR) 10 mg tablet Take 1 tablet by mouth once daily. 31 tablet 11 09/07/2023 02/05/2025 Discontinued Start: 01-26-2014 End: 09-05-2022 take 1 tablet by mouth once daily atorvastatin (LIPITOR) 10 mg tablet Take 1 tablet by mouth once daily. 31 tablet 11 09/07/2023 Active Comment on above: Take 1 tablet by patricia th once daily. Blood-Glucose Meter (1 source) Start: 03-12-2025 End: 03-13-2025 Blood-Glucose Meter Indications: Type 2 diabetes, controlled, with neuropathy (HCC) Use to test blood sugar. Please fill with brand covered by patient's insurance. 1 each 03/12/2025 03/13/2025 Active Blood-Glucose Sensor (FREESTYLE MANDEEP 3 PLUS SENSOR) nadeem (9 sources) Start: 02-05-2025 Blood-Glucose Sensor (FREESTYLE MANDEEP 3 PLUS SENSOR) nadeem Indications: Type 2 diabetes, controlled, with neuropathy (HCC) Apply new sensor every fifteen (15) days to upper arm. 6 each 4 02/05/2025 Active Budesonide-Formoterol (4 sources) Corticosteroid, beta2-Adrenergic Agonist Start: 04-02-2018 Budesonide-Formoterol (Symbicort) 1 INHALER inhaler Active 2 NMA INHALATION TWICE A DAY April 02, 2018 12:00am Start: 04-02-2018 take 1 puff(s) by in halation twice daily Budesonide-Formoterol (Symbicort) 1 INHALER inhaler Active 2 PUFF INHALATION TWICE A DAY April 02, 2018 12:00am 120 actuat budesonide 0.16 mg/actuat / formoterol fumarate 0.0048 mg/actuat / glycopyrrolate 0.009 mg/actuat metered dose inhaler (20 sources) Corticosteroid, beta2-Adrenergic Agonist Start: 09-07-2023 End: 10-18-2024 take 2 puff(s) by inhalation twice daily udbgdnbycy-stdrgyxt-gzibatvfdo (BREZTRI AEROSPHERE) 160-9-4.8 mcg/actuation HFA aerosol inhaler Indications: Centrilobular emphysema (HCC) Inhale 2 Puffs as instructed two times a day. 10.7 g 11 10/18/2024 Active Start: 09-05-2022 take 2 puff(s) by inhalation twice daily yfolrqgatq-sbgjqnvo-zgglsfmkjb (BREZTRI AEROSPHERE) 160-9-4.8 mcg/actuation HFA aerosol inhaler Indications: Centrilobular emphysema (HCC) Inhale 2 Puffs as instructed twice daily. 10.7 g 11 09/05/2022 Active Start: 09-10-2021 End: 09-05-2022 take 2 puff(s) by mouth twice daily BREZTRI AEROSPHERE 160-9-4.8 mcg/actuati on HFA aerosol inhaler Indications: Centrilobular emphysema (HCC) INHALE 2 PUFFS ORALLY TWICE DAILY DIRECTED 10.7 g 09/10/2021 09/05/2022 Discontinued Comment on above: INHALE 2 PUFFS ORALL Y TWICE DAILY DIRECTED Inhale 2 Puffs as in structed twice daily. cephalexin 500 mg oral capsule (1 source) Cephalosporin Antibacterial Start: 2024 take 1 capsule by mouth every six hours Cephalexin 500 mg capsule Active 500 mg PO EVERY 6 HOURS December 06, 2024 12:00am doxycycline hyclate 100 mg oral capsule (1 source) Tetracycline-class Drug Start: 2024 End: 2024 take 1 capsule by mouth twice daily doxycycline hyclate (VIBRAMYCIN) 100 mg capsule Indications: COPD with acute exacerbation (HCC) Take 1 capsule by mouth two times a day for 10 days. 20 capsule 10/18/2024 10/28/2024 Active 0.5 ml dulaglutide 1.5 mg/ml auto-injector (3 sources) GLP-1 Receptor Agonist Start: 2024 inject 0.75 mg by subcutaneous injection every week dulaglutide (TRULICITY) 0.75 mg/0.5 mL pen injector Indications: Type 2 diabetes, controlled, with neuropathy (HCC) Inject 0.75 mg subcutaneously one time a week. 2 mL 5 04/09/2025 Active DULoxetine 60 mg delayed release oral capsule (20 sources) Serotonin and Norepinephrine Reuptake Inhibitor Start: 2013 End: 2024 take 1 capsule by mouth twice daily DULoxetine (CYMBALTA) 60 mg capsule Take 1 capsule by mouth two times a day. 62 capsule 10/18/2024 Active Comment on above: TAKE 1 CAPSULE BY MO UTH TWICE DAILY Take 1 capsule by mo uth twice daily. ergocalciferol 1.25 mg oral capsule (11 sources) Provitamin D2 Compound Start: 2024 End: 2024 take 1 capsule by mouth two times weekly, then take 1 capsule by mouth every week ergocalciferol 50,000 unit capsule (VITAMIN D2, DRISDOL) Take 1 capsule by mouth two times a week for 30 days, THEN 1 capsule one time a week. 20 capsule 01/17/2025 05/17/2025 Active furosemide 40 mg oral tablet (20 sources) Loop Diuretic Start: 2023 End: 2024 take 1 tablet by mouth once daily furosemide (LASIX) 40 mg tablet Indications: Venous insufficiency Take 1 tablet by mouth once daily. 30 tablet 11 04/24/2025 Active Start: 09-20-2020 End: 03-05-2023 take 1 tablet by mouth once daily furosemide (LASIX) 40 mg tablet Indications: Venous insufficiency , Cellulitis of lower extremity, unspecified laterality Take 1 tablet by mouth once daily. 30 tablet 5 03/05/2023 Active Comment on above: Take 1 tablet by patricia th once daily. gabapentin 300 mg oral capsule (20 sources) Anti-epileptic Agent Start: 01-16-2025 End: 07-15-2025 take 1 capsule by mouth twice daily gabapentin (NEURONTIN) 300 mg capsule Indications: Type 2 diabetes, controlled, with neuropathy (HCC) , Chronic pain syndrome , DDD (degenerative disc disease), lumbar Take 1 capsule by mouth two times a day for 180 days. 60 capsule 5 01/16/2025 07/15/2025 Active Start: 11-29-2013 End: 04-22-2025 take 1 capsule by mouth once daily at bedtime gabapentin (NEURONTIN) 300 mg capsule Indications: Type 2 diabetes, controlled, with neuropathy (HCC) , Chronic pain syndrome , DDD (degenerative disc disease), lumbar Take 1 capsule by mouth daily at bedtime for 186 days. 31 capsule 5 10/18/2024 01/16/2025 Discontinued Comment on above: TAKE 1 CAPSULE BY MO UTH EVERY NIGHT AT BEDTIME Take 1 capsule by mo uth daily at bedtime for 186 days. glimepiride 4 mg oral tablet (20 sources) Sulfonylurea Start: take 1 tablet by mouth twice daily at mealtime glimepiride (AMARYL) 4 mg tablet Indications: Type 2 diabetes mellitus without complication, without long-term current use of insulin ([facility]) Take 1 tablet by mouth two times a day with meals. 180 tablet 3 01/17/2025 Active Start: 03-13-2024 End: 01-17-2025 take 1 tablet by mouth once daily at breakfast glimepiride (AMARYL) 4 mg tablet Indications: Type 2 diabetes mellitus without complication, without long-term current use of insulin ([facility]) Take 1 tablet by mouth daily with breakfast. 30 tablet 11 03/13/2024 01/17/2025 Discontinued Start: 09-07-2023 End: 03-13-2024 take 1 tablet by mouth once daily at breakfast glimepiride (AMARYL) 2 mg tablet Take 1 tablet by mouth daily with breakfast. 30 tablet 11 09/07/2023 03/13/2024 Discontinued Start: 02-19-2021 End: 09-05-2022 take 1 tablet by mouth once daily at breakfast glimepiride (AMARYL) 2 mg tablet Take 1 tablet by mouth daily with breakfast. 30 tablet 11 09/05/2022 Active Comment on above: Take 1 tablet by patricia th daily with breakfast. 12 hr guaiFENesin 600 mg extended release oral tablet (20 sources) Start: take 2 tablets by mouth twice daily as needed guaiFENesin (MUCINEX) 600 mg 12 hr tablet Indications: Smoker Take 2 tablets by mouth two times a day as needed for cold/allergy symptoms. 28 tablet 1 04/02/2025 Active Start: 09-07-2023 End: 03-30-2025 take 2 tablets by mouth twice daily as needed guaiFENesin (MUCINEX) 600 mg 12 hr tablet Indications: Smoker Take 2 tablets by mouth two times a day as needed for cold/allergy symptoms. 28 tablet 1 09/07/2023 03/30/2025 Discontinued Start: 12-23-2022 take 2 tablets by mo [facility] twice daily as needed guaiFENesin (MUCINEX) 600 mg 12 hr tablet Indications: Smoker Take 2 tablets by mouth twice daily as needed for cold/allergy symptoms. 28 tablet 1 12/23/2022 Active Comment on above: Take 2 tablets by mo [facility] twice daily as needed for cold/allergy symptoms. Lancing Device misc (1 source) Start: 03-12-20 End: 03-13-20 Lancing Device misc Indications: Type 2 diabetes, controlled, with neuropathy (HCC) Use with blood glucose test two times a day. Insulin Dep? No 1 each 03/12/2025 03/13/2025 Active levothyroxine sodium 0.088 mg oral tablet (20 sources) l-Thyroxine Start: 01-18-20 End: 02-07-20 take 1 tablet by mouth once daily levothyroxine (SYNTHROID) 88 mcg tablet Indications: Acquired hypothyroidism Take 1 tablet by mouth once daily. Take 1 tablet by mouth once daily. Take on empty stomach. For Thyroid. To be taken with Levothyroxine 200 mcg tablet to make 288 mcg 90 tablet 1 02/06/2025 Active Start: 04-12-2024 End: 02-06-2025 take 1 tablet by mouth once daily for thyroid dysfunction levothyroxine (SYNTHROID) 200 mcg tablet Indications: Acquired hypothyroidism Take 1 tablet by mouth once daily. Take on empty stomach. For Thyroid. 90 tablet 1 02/06/2025 Active Start: 04-12-2024 End: 01-17-2025 take 1 tablet by mouth once daily levothyroxine (SYNTHROID) 75 mcg tablet Take 1 tablet by mouth once daily. Take on empty stomach. For Thyroid. To be taken with Levothyroxine 200 mcg tablet to make 275 mcg daily 90 tablet 10/18/2024 01/17/2025 Discontinued (Dosage adjustment) Start: 03-15-2024 End: 04-12-2024 take 1 tablet by mouth once daily for thyroid dysfunction levothyroxine (SYNTHROID) 300 mcg tablet Indications: Acquired hypothyroidism Take 1 tablet by mouth once daily. Take on empty stomach. For Thyroid. 30 tablet 11 03/15/2024 04/12/2024 Discontinued Start: 03-09-2023 take 1 tablet by patricia th once daily for thyroid dysfunction levothyroxine (SYNTHROID) 300 mcg tablet Indications: Acquired hypothyroidism Take 1 tablet by mouth once daily. Take on empty stomach. For Thyroid. 30 tablet 11 03/09/2023 Active Start: 09-24-2020 End: 03-09-2023 take 1 tablet by mouth once daily for thyroid dysfunction levothyroxine (SYNTHROID) 200 mcg tablet Indications: Acquired hypothyroidism Take 1 tablet by mouth once daily. Take on empty stomach. For Thyroid. 30 tablet 11 09/05/2022 03/09/2023 Discontinued Start: 07-17-2015 Levothyroxine 75 MCG tablet Active 175 ug PO DAILY@599July 17, 2015 2:12pm Start: 07-17-2015 take 175 ug by mouth once narendra y Levothyroxine Active 175 MCG PO DAILY@599July 17, 2015 2:12pm Start: 01-26-2014 End: 07-17-2015 Levothyroxine 75 MCG tablet Discontinued 100 ug PO DAILY@599January 26, 2014 12:00am July 17, 2015 2:12pm Start: 01-26-2014 End: 07-17-2015 take 100 ug by mouth once daily Levothyroxine Disconti nued 100 MCG PO DAILY@599January 26, 2014 12:00am July 17, 2015 2:12pm Start: 11-30-2013 End: 01-26-2014 take 1 tablet by mouth once daily Levothyroxine 75 MCG tablet Discontinued 75 ug PO DAILY@0600 30 November 30, 2013 12:00am January 26, 2014 10:50am Start: 11-29-2013 End: 11-30-2013 take 1 tablet by mouth once daily Levothyroxine 50 MCG tablet Discontinued 50 ug PO DAILY November 29, 2013 12:00am November 30, 2013 8:28am Comment on above: Take 1 tablet by patricia once daily. Take on empty stomach. For Thyroid. lidocaine 0.05 mg/mg medicated patch (2 sources) Antiarrhythmic, Amide Local Anesthetic Start: 06-24-20 23 Lidocaine (Lidoderm) 5 % adhesive patch,medicated Active 1 NMA TOPICAL DAILY as needed for pain June 24, 2023 7:13pm leave on most painful area for up to 12 hrs lisinopril 20 mg oral tablet (20 sources) Angiotensin Converting Enzyme Inhibitor Start: 11-30-19 14 End: 10-18-19 25 take 1 tablet by mouth once daily lisinopril (ZESTRIL) 20 mg tablet Take 1 tablet by mouth once daily. 31 tablet 11 10/18/2024 Active Comment on above: Take 1 tablet by patricia once daily. meclizine hydrochloride 25 mg oral tablet (20 sources) Antiemetic Start: 04-09-20 25 take 1 tablet by mouth every six hours as needed for dizziness and dizziness meclizine (ANTIVERT) 25 mg tab Indications: Dizziness Take 1 tablet by mouth every 6 hours as needed (for dizziness). 90 tablet 1 04/09/2025 Active Start: 04-02-2025 End: 04-09-2025 take 1 tablet by mouth twice daily as needed for dizziness Meclizine HCl 50 mg tablet Indications: BPPV (benign paroxysmal positional vertigo), unspecified laterality Take 50 mg by mouth two times a day as needed (dizziness). 30 tablet 04/02/2025 04/09/2025 Discontinued Start: 04-11-2024 End: 03-30-2025 take 1 tablet by mouth twice daily as needed for dizziness Meclizine HCl 50 mg tablet Indications: BPPV (benign paroxysmal positional vertigo), unspecified laterality Take 50 mg by mouth two times a day as needed (dizziness). 30 tablet 10/18/2024 03/30/2025 Discontinued Start: 09-07-2023 End: 04-11-2024 take 1 tablet by mouth twice daily as needed for dizziness meclizine (ANTIVERT) 25 mg tab Indications: BPPV (benign paroxysmal positional vertigo), unspecified laterality Take 1 tablet by mouth two times a day as needed (dizziness). 20 tablet 5 09/07/2023 04/11/2024 Discontinued Start: 09-20-2020 End: 09-05-2022 take 1 tablet by mouth twice daily as needed for dizziness meclizine (ANTIVERT) 25 mg tab Indications: BPPV (benign paroxysmal positional vertigo), unspecified laterality Take 1 tablet by mouth twice daily as needed (dizziness). 20 tablet 5 09/05/2022 Active Start: 03-27-2020 take 1 tablet by patricia th once daily as needed for dizziness Meclizine 25 MG tablet Active 25 mg PO DAILY as needed for Dizziness March 27, 2020 12:00am Comment on above: Take 1 tablet by patricia th twice daily as needed (dizziness). 24 hr metFORMIN hydrochloride 500 mg extended release oral tablet (20 sources) Biguanide Start: take 2 tablets by mouth twice daily metFORMIN ER (GLUCOPHAGE XR) 500 mg 24 hr tablet Indications: Type 2 diabetes, controlled, with neuropathy (HCC) Take 2 tablets by mouth two times a day. 360 tablet 3 02/05/2025 Active Start: 09-07-2023 End: 02-05-2025 take 2 tablets by mouth once daily at breakfast metFORMIN (GLUCOPHAGE) 500 mg tablet Indications: Type 2 diabetes, controlled, with neuropathy (HCC) Take 2 tablets by mouth daily with breakfast. 60 tablet 11 10/18/2024 02/05/2025 Discontinued Start: 09-24-2020 End: 09-05-2022 take 2 tablets by mouth once daily at breakfast metFORMIN (GLUCOPHAGE) 500 mg tablet Indications: Type 2 diabetes, controlled, with neuropathy (HCC) Take 2 tablets by mouth daily with breakfast. 60 tablet 11 09/05/2022 Active Start: 11-29-2013 take 1 tablet by patricia th once daily Metformin 500 MG tablet Active 500 mg PO DAILY November 29, 2013 12:00am Comment on above: Take 2 tablets by [facility] daily with breakfast. Nebulizer Accessories kit (7 sources) Start: Nebulizer Accessories kit Indications: Stage 3 severe COPD by GOLD classification (HCC) 1 kit as needed. 1 kit 11 02/06/2025 Active omeprazole 40 mg delayed release oral capsule (20 sources) Proton Pump Inhibitor Start: take 1 capsule by mouth once daily omeprazole (PRILOSEC) 40 mg capsule Take 1 capsule by mouth once daily. 31 capsule 11 04/02/2025 Active Start: 03-15-2024 End: 03-30-2025 take 1 capsule by mouth once daily omeprazole (PRILOSEC) 40 mg capsule Take 1 capsule by mouth once daily. 31 capsule 11 03/15/2024 03/30/2025 Discontinued Start: 07-02-2023 take 1 capsule by [facility] once daily omeprazole (PRILOSEC) 40 mg capsule Take 1 capsule by mouth once daily. 31 capsule 5 07/02/2023 Active Start: 05-09-2021 End: 09-05-2022 take 1 capsule by mouth once daily omeprazole (PRILOSEC) 40 mg capsule Take 1 capsule by mouth once daily. 31 capsule 5 09/05/2022 Active Start: 11-29-2013 take 2 capsules by [facility] once daily Omeprazole 20 MG capsule Active 40 mg PO DAILY November 29, 2013 12:00am Start: 11-29-2013 take 40 mg by mouth once daily Omeprazole Active 40 MG PO DAILY November 29, 2013 12:00am Comment on above: Take 1 capsule by [facility] once daily. polyethylene glycol 3350 [id number] mg / potassium chloride 2970 mg / sodium bicarbonate 6740 mg / sodium chloride 5860 mg / sodium sulfate 77258 mg powder for oral solution (1 source) Osmotic Laxative Start: 3 End: 3 peg 3350-Electrolytes (GOLYTELY) 236-22.74-6.74 -5.86 gram suspension Take 4,000 mL by mouth one time only for 1 dose. 1 Each 0 07/08/2023 07/08/2023 Active Comment on above: Take 4,000 mL by [facility] one time only for 1 dose. predniSONE 20 mg oral tablet (11 sources) Start: End: take 2 tablets by mouth once daily predniSONE (DELTASONE) 20 mg tablet Indications: COPD with acute exacerbation (HCC) Take 2 tablets by mouth once daily for 5 days. 10 tablet 10/18/2024 10/23/2024 Active Start: 08-11-2021 take 50 mg by mouth once daily Prednisone Active 50 MG PO DAILY August 11, 2021 1:00am Start: 03-28-2020 take 40 mg by mouth once daily at mealtime Prednisone Active 40 MG PO DAILY March 28, 2020 12:00am With Food Start: 09-20-2018 End: 09-27-2018 take 2 tablets by mouth once daily at mealtime Prednisone 20 MG tablet Discontinued 40 mg PO DAILY September 20, 2018 1:00am September 26, 2018 1:00am September 27, 2018 1:08am With food Start: 09-20-2018 End: 09-27-2018 take 40 mg by mouth once daily at mealtime Prednisone Discontinued 40 MG PO DAILY September 20, 2018 1:00am September 27, 2018 1:08am With food Start: 11-30-2013 End: 01-26-2014 Prednisone 20 MG tablet Discontinued 10 mg PO DIRECTED November 30, 2013 12:00am January 26, 2014 10:43am Prednisone Taper: Take 40 mg daily x 3 days, Take 30 mg daily x 3 days, Take 20 mg daily x 3 days, Take 10 mg daily x 3 days. Start: 11-30-2013 End: 01-26-2014 Prednisone Discontinued 10 M G PO DIRECTED November 30, 2013 12:00am January 26, 2014 10:43am Prednisone Taper: Take 40 mg daily x 3 days, Take 30 mg daily x 3 days, Take 20 mg daily x 3 days, Take 10 mg daily x 3 days. Completed/Discontinued Medications Medication Drug Class(es) Dates Sig (Normalized) Sig (Original) acetaminophen 325 mg / HYDROcodone bitartrate 5 mg oral tablet (4 sources) Opioid Agonist Start: 08-21-2020 End: 08-24-2020 Hydrocodone-Acetami nophen 1 TABLET tablet Discontinued 1 {tbl} PO EVERY 6 HOURS NEEDED as needed for Pain 05 25August 21, 2020 August 23, 2020 1:00am August 24, 2020 1:03am Start: 08-21-2020 End: 08-24-2020 take 1 tablet by mouth every six hours as needed Hydrocodone-Acetaminophen Discontinued 1 TABLET PO EVERY 6 HOURS NEEDED 05 25August 21, 2020 August 24, 2020 1:03am amoxicillin 875 mg / clavulanate 125 mg oral tablet (4 sources) Penicillin-class Antibacterial Start: 11-30-2013 End: 01-26-2014 take 1 tablet by mouth every twelve hours Amoxicillin-Pot Clavulanate 875 MG tablet Discontinued 875 mg PO EVERY 12 HOURS November 30, 2013 12:00am January 26, 2014 10:43am Blood-Glucose Meter monitoring kit (13 sources) Start: 03-13-2024 End: 02-05-2025 Blood-Glucose Meter monitoring kit Indications: Type 2 diabetes mellitus without complication, without long-term current use of insulin ([facility]) Glucose Meter of Choice - Kit - Dx: Type 2 DM - Uncontrolled E11.65 1 Each 03/13/2024 02/05/2025 Discontinued Start: 03-13-2024 Blood-Glucose Meter monitoring kit Indications: Type 2 diabetes mellitus without complication, without long-term current use of insulin ([facility]) Glucose Meter of Choice - Kit - Dx: Type 2 DM - Uncontrolled E11.65 1 Each 03/13/2024 Active Start: 03-13-2024 Blood-Glucose Meter monitoring kit Indications: Type 2 diabetes mellitus without complication, without long-term current use of insulin ([facility]) Glucose Meter of Choice - Kit - Dx: Type 2 DM - Uncontrolled E11.65 1 Each 0 03/13/2024 Active celecoxib 100 mg oral capsule (20 sources) Nonsteroidal Anti-inflammatory Drug Start: 09-07-2023 End: 10-18-2024 take 1 capsule by mouth twice daily celecoxib (CELEBREX) 100 mg capsule Take 1 capsule by mouth two times a day. 60 capsule 11 09/07/2023 10/18/2024 Discontinued (Side Effects) Start: 09-05-2022 take 1 capsule by mo [facility] twice daily celecoxib (CELEBREX) 100 mg capsule Take 1 capsule by mouth twice daily. 60 capsule 11 09/05/2022 Active Comment on above: Take 1 capsule by mo ut twice daily. hydrocortisone 10 mg/ml / neomycin 3.5 mg/ml / polymyxin b [id number] unt/ml otic suspension (4 sources) Aminoglycoside Antibacterial, Polymyxin-class Antibacterial, Corticosteroid Start: 11-30-2013 End: 01-26-2014 Mngzmgyb-Enjfuoydh-Ul 10 ML bottle Discontinued 3 NMA OTIC EVERY 6 HOURS November 30, 2013 12:00am January 26, 2014 10:43am Use 3 drops in each ear 4x/day x 9 additional days for total of 10 days of treatment. Start: 11-30-2013 End: 01-26-2014 Tfiiusaq-Iqikzgkeh-Bt Discon tinued 3 DRP OTIC EVERY 6 HOURS November 30, 2013 12:00am January 26, 2014 10:43am Use 3 drops in each ear 4x/day x 9 additional days for total of 10 days of treatment. meloxicam 15 mg oral tablet (16 sources) Nonsteroidal Anti-inflammatory Drug Start: 10-06-2019 End: 09-05-2022 take 1 tablet by mouth once daily Meloxicam 15 MG tablet Discontinued 15 mg PO DAILY March 27, 2020 12:00am March 28, 2020 11:39am Comment on above: Take 1 tablet by mouth once daily. Take with food. 24 hr nicotine 0.583 mg/hr transdermal system (4 sources) Cholinergic Nicotinic Agonist Start: 11-30-2013 End: 01-26-2014 apply 14 mg transdermal route once daily Nicotine 14 MG patch Discontinued 14 mg TRANSDERM. DAILY November 30, 2013 12:00am January 26, 2014 10:44am warfarin sodium 5 mg oral tablet (8 sources) Vitamin K Antagonist Start: 03-27-2020 End: 03-28-2020 take 3 tablets by mouth once daily Warfarin 5 MG tablet Discontinued 15 mg PO DAILY March 27, 2020 12:00am March 28, 2020 11:39am WEDNESDAY, WEDNESDAY Start: 03-27-2020 End: 03-28-2020 take 15 mg by mouth once daily Warfarin Discontinued 1 5 MG PO DAILY March 27, 2020 12:00am March 28, 2020 11:39am Wednesday Start: 11-29-2013 End: 03-28-2020 take 2 tablets by mouth once daily Warfarin (Augtoven) 5 MG tablet Discontinued 10 mg PO DAILY November 29, 2013 12:00am March 28, 2020 11:39am WEDNESDAY, WEDNESDAY, WEDNESDAY, WEDNESDAY, WEDNESDAY Problems Active Problems Problem Classification Problem Date Documented Date Episodic/Chronic Aortic and peripheral arterial embolism or thrombosis (20 sources) Vascular disorder; Translations: [Embolism and thrombosis of unspecified artery] Onset: 7 06-21-2017 Chronic Asthma (20 sources) Asthma; Translations: [Unspecified asthma, uncomplicated] Onset: 4 02-02-2014 Chronic Chronic obstructive pulmonary disease and bronchiectasis (20 sources) Chronic obstructive lung disease; Translations: [Chronic obstructive pulmonary disease, unspecified] Onset: 0 Chronic Coagulation and hemorrhagic disorders (20 sources) Hypercoagulability state; Translations: [Other primary thrombophilia] Onset: 6 08-27-2005 Chronic Coma; stupor; and brain damage (4 sources) Drowsy; Translations: [Somnolence] 03-28-2020 Episodic Coronary atherosclerosis and other heart disease (13 sources) Coronary atherosclerosis; Translations: [Atherosclerotic heart disease of [place] coronary artery without angina pectoris] Onset: 5 03-28-2020 Chronic Comment on above: Notes cardiac cathet erization late without PCI needed and unclear possible history of SC. Diabetes mellitus with complications (20 sources) Type 2 diabetes mellitus; Translations: [Type 2 diabetes mellitus with diabetic neuropathy, unspecified] Onset: 0 Resolved: 5 Chronic Disorders of lipid metabolism (7 sources) Hyperlipidemia; Translations: [Hyperlipidemia, unspecified] Onset: 5 03-28-2020 Chronic Esophageal disorders (20 sources) Gastroesophageal reflux disease; Translations: [Gastro-esophageal reflux disease without esophagitis] Onset: 5 05-25-2005 Chronic Essential hypertension (20 sources) Essential hypertension; Translations: [Essential (primary) hypertension] Onset: 6 09-17-2015 Chronic Nonspecific chest pain (7 sources) Chest pain; Translations: [Chest pain, unspecified] 11-19-2022 Episodic Nutritional deficiencies (3 sources) Vitamin D deficiency; Translations: [Vitamin D deficiency, unspecified] Onset: 5 01-17-2025 Chronic Open wounds of extremities (4 sources) Laceration of finger; Translations: [Laceration without foreign body of unspecified finger without damage to nail, initial encounter] 07-11-2019 Episodic Osteoarthritis (20 sources) Degenerative joint disease involving multiple joints; Translations: [Polyosteoarthritis, unspecified] 05-25-2005 Chronic Other and unspecified benign neoplasm (2 sources) History of polyp of colon; Translations: [Personal history of colonic polyps] 03-05-2023 Episodic Other connective tissue disease (20 sources) Muscle pain; Translations: [Myalgia and myositis, unspecified] 05-25-2005 Episodic Other connective tissue disease (20 sources) Neuropathy; Translations: [Neuralgia, neuritis, and radiculitis, unspecified] 05-25-2005 Episodic Other connective tissue disease (4 sources) Pain in lower limb; Translations: [Pain in left leg] 08-22-2020 Episodic Other lower respiratory disease (4 sources) Hypoxia; Translations: [Hypoxemia] 03-27-2020 Episodic Other lower respiratory disease (3 sources) Multiple nodules of lung; Translations: [Other nonspecific abnormal finding of lung field] Episodic Other lower respiratory disease (1 source) Shortness of breath; Translations: [Shortness of breath] Onset: 5 Episodic Other nervous system disorders (20 sources) Chronic pain; Translations: [Other chronic pain] Onset: 4 10-09-2013 Chronic Other nervous system disorders (5 sources) Chronic pain syndrome; Translations: [Chronic pain syndrome] Chronic Other nervous system disorders (1 source) Chronic pain syndrome; Translations: [Chronic pain syndrome] Onset: 4 Chronic Other nervous system disorders (1 source) Numbness of finger; Translations: [Anesthesia of skin] 03-07-2024 Episodic Other non-traumatic joint disorders (4 sources) Effusion of joint of left knee; Translations: [Effusion, left knee] 08-22-2020 Episodic Other non-traumatic joint disorders (2 sources) Acute ankle pain; Translations: [Pain in right ankle and joints of right foot] Episodic Other non-traumatic joint disorders (3 sources) Pain in right knee; Translations: [Pain in joint, lower leg] Onset: 5 04-24-2025 Episodic Other nutritional; endocrine; and metabolic disorders (20 sources) Obese class II; Translations: [Obesity, unspecified] Onset: 3 Chronic Other nutritional; endocrine; and metabolic disorders (2 sources) Morbid obesity; Translations: [Morbid (severe) obesity due to excess calories] 11-03-2024 Chronic Other nutritional; endocrine; and metabolic disorders (1 source) Morbid (severe) obesity due to excess calories; Translations: [Morbid obesity (HCC)] Onset: 5 Chronic Peripheral and visceral atherosclerosis (4 sources) Peripheral vascular disease; Translations: [Peripheral vascular disease, unspecified] 07-10-2019 Chronic Phlebitis; thrombophlebitis and thromboembolism (5 sources) Deep venous thrombosis of lower extremity; Translations: [Acute embolism and thrombosis of unspecified deep veins of unspecified lower extremity] 02-11-2022 Episodic Pulmonary heart disease (20 sources) Chronic pulmonary embolism; Translations: [Chronic pulmonary embolism] Onset: 0 04-23-2020 Chronic Pulmonary heart disease (8 sources) Acute pulmonary embolism; Translations: [Other pulmonary embolism without acute cor pulmonale] Episodic Residual codes; unclassified (20 sources) Obstructive sleep apnea syndrome; Translations: [Obstructive sleep apnea (adult) (pediatric)] Onset: 6 03-12-2016 Chronic Residual codes; unclassified (1 source) Hypoxia; Translations: [Idiopathic sleep related nonobstructive alveolar hypoventilation] 02-06-2025 Chronic Residual codes; unclassified (1 source) Idiopathic sleep related nonobstructive alveolar hypoventilation; Translations: [Nocturnal hypoxia] Onset: 5 Chronic Residual codes; unclassified (1 source) Obstructive sleep apnea (adult) (pediatric); Translations: [Obstructive sleep apnea] Onset: 6 Chronic Residual codes; unclassified (5 sources) Tobacco use and exposure - finding; Translations: [Tobacco use] 07-10-2019 Episodic Residual codes; unclassified (1 source) Tobacco user; Translations: [Tobacco use] Episodic Residual codes; unclassified (1 source) Confusional state; Translations: [Disorientation, unspecified] 12-06-2024 Episodic Respiratory failure; insufficiency; arrest (adult) (20 sources) Requires continuous home oxygen supply; Translations: [Dependence on supplemental oxygen] Onset: 0 04-23-2020 Chronic Skin and subcutaneous tissue infections (4 sources) Cellulitis of lower limb; Translations: [Cellulitis of unspecified part of limb] Episodic Spondylosis; intervertebral disc disorders; other back problems (20 sources) Herniation of intervertebral disc without myelopathy; Translations: [Displacement of intervertebral disc, site unspecified, without myelopathy] Onset: 5 05-06-2005 Chronic Sprains and strains (4 sources) Sprain of ankle; Translations: [Sprain of unspecified ligament of right ankle, initial encounter] 09-28-2019 Episodic Substance-related disorders (20 sources) Tobacco user; Translations: [Nicotine dependence, unspecified, uncomplicated] Onset: 9 06-05-2009 Chronic Superficial injury; contusion (4 sources) Contusion of hip; Translations: [Contusion of right hip, initial encounter] 09-28-2019 Episodic Thyroid disorders (20 sources) Acquired hypothyroidism; Translations: [Hypothyroidism, unspecified] Onset: 6 Chronic Unclassified (20 sources) PMH - PAST MEDICAL HISTORY OF 05-25-2005 Unclassified (4 sources) Chronic venous stasis 07-10-2019 Unclassified (1 source) Patient encounter status 10-18-2024 Unclassified (1 source) Right knee pain, unspecified chronicity 04-24-2025 Unclassified (1 source) DDD (degenerative disc disease), lumbar; Translations: [DDD (degenerative disc disease), lumbar] Onset: 4 Urinary tract infections (1 source) Urinary tract infectious disease; Translations: [Urinary tract infection, site not specified] 12-06-2024 Episodic Past or Other Problems Problem Classification Problem Date Documented Date Episodic/Chronic Acquired foot deformities (20 sources) Acquired deformity of toe; Translations: [Other deformities of toe(s) (acquired), unspecified foot] Onset: 11-14-2009 11-14-2009 Episodic Conditions associated with dizziness or vertigo (20 sources) Benign paroxysmal positional vertigo; Translations: [Benign paroxysmal vertigo, unspecified ear] Onset: 05-02-2024 Episodic Diabetes mellitus without complication (20 sources) Diabetes mellitus; Translations: [Type 2 diabetes mellitus without complications] Onset: 11-07-2009 Resolved: 03-05-2014 03-05-2014 Chronic Immunizations and screening for infectious disease (2 sources) Vaccination needed; Translations: [Encounter for immunization] Onset: 10-18-2024 03-05-2023 Episodic Malaise and fatigue (2 sources) Fatigue; Translations: [Other fatigue] Onset: 10-18-2024 10-18-2024 Episodic Mycoses (20 sources) Onychomycosis due to dermatophyte ; Translations: [Tinea unguium] Onset: 11-14-2009 11-14-2009 Episodic Other aftercare (1 source) Other tree pruner (current) drug therapy; Translations: [Medication management] Onset: 02-05-2025 Episodic Other connective tissue disease (20 sources) Pain in limb; Translations: [Pain in unspecified limb] Onset: 11-14-2009 11-14-2009 Episodic Other connective tissue disease (1 source) Pain in left lower leg; Translations: [Pain in left lower leg] Onset: 08-21-2024 Episodic Other diseases of veins and lymphatics (20 sources) Vascular insufficiency; Translations: [Venous insufficiency (chronic) (peripheral)] Onset: 02-10-2011 Episodic Other diseases of veins and lymphatics (1 source) Venous insufficiency (chronic) (peripheral); Translations: [Venous insufficiency] Onset: 02-10-2011 Episodic Other lower respiratory disease (1 source) Other nonspecific abnormal finding of lung field; Translations: [Lung nodules] Onset: 02-06-2025 Episodic Other non-traumatic joint disorders (20 sources) Shoulder joint pain; Translations: [Pain in unspecified shoulder] Onset: 05-18-2011 05-18-2011 Episodic Other nutritional; endocrine; and metabolic disorders (20 sources) Body mass index 40+ - severely obese; Translations: [Morbid (severe) obesity due to excess calories] Onset: 06-05-2014 Resolved: 03-05-2023 04-23-2020 Chronic Other screening for suspected conditions (not mental disorders or infectious disease) (15 sources) Patient encounter status; Translations: [Encounter for screening for malignant neoplasm of prostate] Onset: 10-18-2024 Episodic Other skin disorders (20 sources) Callosity; Translations: [Corns and callosities] Onset: 11-14-2009 11-14-2009 Episodic Residual codes; unclassified (20 sources) FH: Hypertension; Translations: [Family history of ischemic heart disease and other diseases of the circulatory system] Onset: 07-09-2023 07-09-2023 Episodic Residual codes; unclassified (1 source) Disorientation, unspecified; Translations: [Disorientation, unspecified] Onset: 12-12-2024 Episodic Spondylosis; intervertebral disc disorders; other back problems (20 sources) Thoracic and lumbosacral neuritis; Translations: [Thoracic or lumbosacral neuritis or radiculitis, unspecified] Onset: 04-01-2005 04-01-2005 Episodic Results Test Name Value Interpretation Reference Range Facility 12 Lead EKGon 06-24-2025 12 Lead EKG [facility] [address] [place] [address] 12 Lead EKG 06/24/25 1045 MR#: [id number] Acct: [id number] Name: LUCAS MCCABE Jr. Rep #: [id number] : 1965 60 From: Abdirizak Lauren MD Attending Dr: Status: DEP ER Ordering Dr: Lisa Cobian MD Date: 06/24/25 Location: ED Sex: M C Admitted: Test Reason : SOB Blood Pressure : */* mmHG Vent. Rate : 86 BPM Atrial Rate : 86 BPM P-R Int : 164 ms QRS Dur : 96 ms QT Int : 356 ms P-R-T Axes : 66 125 50 degrees QTcB Int : 426 ms Sinus rhythm with occasional Premature ventricular complexes Right axis deviation Nonspecific ST and T wave abnormality Abnormal ECG Confirmed by Abdirizak Lauren ([id number]), book or script editor OBED YOUNG ([id number]) on 06/25/2025 12:53:11 PM Referred By: JONY Confirmed By: Abdirizak Lauren 06/25/25 1253 Date Abdirizak Lauren MD CC: Dr. Lisa Cobian MD; Dr. Kaushik Seals MD Signed Normal [facility] Basic Metabolic Profile (BMP )on 06-24-2025 BUN/CRE 23.4 RATIO High 06-11 [facility] Comment on above: Performed By: #### L 500.2500, L100.0100, L501.4021 #### [facility] [address] [place], [address] Calcium [Mass/Vol] 8.7 mg/dL Normal 7.6-11.0 [facility] Comment on above: Performed By: #### L 500.2500, L100.0100, L501.4021 #### [facility] [address] [place], [address] Chloride [Moles/Vol] 89 mmol/L Low 98-108 [facility] Comment on above: Performed By: #### L 500.2500, L100.0100, L501.4021 #### [facility] [address] [place], [address] CO2 [Moles/Vol] 25.3 mmol/L Normal 21.0-32.0 [facility] Comment on above: Performed By: #### L 500.2500, L100.0100, L501.4021 #### [facility] [address] [place], [address] Creatinine [Mass/Vol] 0.63 mg/dL Low 0.70-1.20 [facility] Comment on above: Performed By: #### L 500.2500, L100.0100, L501.4021 #### [facility] [address] [place], [address] ECRCL 151.42 ml/min Normal 50-250 [facility] Comment on above: Performed By: #### L 500.2500, L100.0100, L501.4021 #### [facility] [address] [place], [address] GAP 12 Normal 5-15 [facility] Comment on above: Performed By: #### L 500.2500, L100.0100, L501.4021 #### [facility] [address] [place], [address] GFR/1.73 sq M.predicted among non-blacks MDRD (S/P/Bld) [Vol rate/Area] 108 mL/min/{1.73_m2} Normal >60 [facility] Comment on above: Result Comment: mL/m in/1.73m2 CKD-EPI Creatinine Equation (2020) Performed By: #### L 500.2500, L100.0100, L501.4021 #### [facility] [address] [place], [address] Glucose [Mass/Vol] 216 mg/dL High 70-99 [facility] Comment on above: Performed By: #### L 500.2500, L100.0100, L501.4021 #### [facility] [address] [place], [address] Potassium [Moles/Vol] 3.8 mmol/L Normal 3.3-5.1 [facility] Comment on above: Result Comment: Hemo lysis present, Results??could be affected. ?? Performed By: #### L 500.2500, L100.0100, L501.4021 #### [facility] [address] [place], [address] Sodium [Moles/Vol] 127 mmol/L Low 133-145 [facility] Comment on above: Performed By: #### L 500.2500, L100.0100, L501.4021 #### [facility] [address] [place], [address] Urea nitrogen [Mass/Vol] 15 mg/dL Normal 4-19 [facility] Comment on above: Performed By: #### L 500.2500, L100.0100, L501.4021 #### [facility] [address] [place], [address] CBC W/Diff, Automatedon 11-0 -2024 Absolute Lymph 0.91 X10 3/uL Normal 0.83-4.51 [facility] Comment on above: Performed By: #### L 500.2500, L100.0100, L501.4021 #### [facility] [address] [place], [address] Absolute Neut 12.4 X10 3/uL High 2.0-7.7 [facility] Comment on above: Performed By: #### L 500.2500, L100.0100, L501.4021 #### [facility] [address] [place], [address] Basophils/100 WBC (Bld) 0.4 % Normal 0-1 [facility] Comment on above: Performed By: #### L 500.2500, L100.0100, L501.4021 #### [facility] [address] [place], [address] Eosinophils/100 WBC (Bld) 0.1 % Normal 0-5 [facility] Comment on above: Performed By: #### L 500.2500, L100.0100, L501.4021 #### [facility] [address] [place], [address] Erythrocyte distribution width (RBC) [Ratio] 15.6 % High 11.6-14.6 [facility] Comment on above: Performed By: #### L 500.2500, L100.0100, L501.4021 #### [facility] [address] [place], [address] Hematocrit (Bld) [Volume fraction] 52.6 % Normal 40-54 [facility] Comment on above: Performed By: #### L 500.2500, L100.0100, L501.4021 #### [facility] [address] [place], [address] Hemoglobin (Bld) [Mass/Vol] 17.7 g/dL High 13.0-16.5 [facility] Comment on above: Performed By: #### L 500.2500, L100.0100, L501.4021 #### [facility] [address] [place], [address] IG% 0.600 Normal 0.0-0.9 [facility] Comment on above: Result Comment: IG% - Immature Granulocytes (promyelocytes, myelocytes and metamyelocytes) > 1% indicates that a LEFT SHIFT is Present. Performed By: #### L 500.2500, L100.0100, L501.4021 #### [facility] [address] [place], [address] Lymphocytes/100 WBC (Bld) 6.2 % Low 19-41 [facility] Comment on above: Performed By: #### L 500.2500, L100.0100, L501.4021 #### [facility] [address] [place], [address] MCH (RBC) [Entitic mass] 28.1 pg Normal 27.0-32.0 [facility] Comment on above: Performed By: #### L 500.2500, L100.0100, L501.4021 #### [facility] [address] [place], [address] MCHC (RBC) [Mass/Vol] 33.7 g/dL Normal 32-36 [facility] Comment on above: Performed By: #### L 500.2500, L100.0100, L501.4021 #### [facility] [address] [place], [address] MCV (RBC) [Entitic vol] 83.5 fL Normal 80-94 [facility] Comment on above: Performed By: #### L 500.2500, L100.0100, L501.4021 #### [facility] [address] [place], [address] Monocytes/100 WBC (Bld) 8.3 % Normal 0-10 [facility] Comment on above: Performed By: #### L 500.2500, L100.0100, L501.4021 #### [facility] [address] [place], [address] Neutrophils/100 WBC (Bld) 84.4 % High 47-70 [facility] Comment on above: Performed By: #### L 500.2500, L100.0100, L501.4021 #### [facility] [address] [place], [address] Nucleated RBC (Bld) [#/Vol] 0 10*3/uL Normal 0-5 [facility] Comment on above: Performed By: #### L 500.2500, L100.0100, L501.4021 #### [facility] [address] [place], [address] Platelet mean volume (Bld) [Entitic vol] 9.9 fL Normal 6.2-12.0 [facility] Comment on above: Performed By: #### L 500.2500, L100.0100, L501.4021 #### [facility] [address] [place], [address] Platelets (Bld) [#/Vol] 197 10*3/uL Normal 150-450 [facility] Comment on above: Performed By: #### L 500.2500, L100.0100, L501.4021 #### [facility] [address] [place], [address] RBC (Bld) [#/Vol] 6.30 10*6/uL High 4.6-6.2 [facility] Comment on above: Performed By: #### L 500.2500, L100.0100, L501.4021 #### [facility] [address] [place], [address] RDW SD 46.2 fl High 35.1-43.9 [facility] Comment on above: Performed By: #### L 500.2500, L100.0100, L501.4021 #### [facility] [address] [place], [address] WBC (Bld) [#/Vol] 14.6 10*3/uL High 4.4-11.0 [facility] Comment on above: Performed By: #### L 500.2500, L100.0100, L501.4021 #### [facility] [address] [place], [address] CTA Chest W/WO Contraston CTA Chest W/WO Contrast [facility] Imaging Services [address] [place] [address] CTA Chest W/WO Contrast MR#: [id number] Acct: [id number] Name: LUCAS MCCABE Rep #: [id number] : 1965 M 60 From: Oli Castaneda DO PCP: Dr. Kaushik Seals MD Status: [facility] ER Study: CTA Chest W/WO Contrast Date of Exam: 06/24/25 Exam# [id number] Ordering Dr: Lisa Cobian MD PROCEDURE: CTA CHEST W/WO CONTRAST 06/24/2025 REASON FOR EXAM: RULE OUT PE. Hypertension. COPD. Cough and confusion. TECHNIQUE: Procedure Code: [id number] Modality: CT Procedure: CTA CHEST W/WO CONTRAST Multiplanar Sagittal and Coronal images were obtained. MIP reformats were obtained. CONTRAST: Isovue 370 VOLUME: 100 mL One or more dose reduction techniques were used (e.g., Automated exposure control, adjustment of the mA and/or kV according to patient size, use of iterative reconstruction technique). RADIATION DOSE SUMMARY: DLP: 581.4 mGycm COMPARISON: No prior CT available. FINDINGS: Vascular: No pulmonary embolus. No thoracic aortic aneurysm or dissection. No significant plaque is seen. Normal heart size. Trace coronary artery calcification. Nonvascular: Mild/moderate emphysema and chronic bronchitis is noted. Subpleural reticulation at both lung bases with some microatelectasis at the subpleural right base. Superimposed early interstitial lung disease is possible and could be further evaluated with outpatient CT high-resolution chest as needed. There is no acute pneumonia identified. 7 mm nodule in the right upper lobe series 2 image 218 is likely minimal bronchiolitis. No evidence of CHF. There are no dominant spiculated lesions to suggest malignancy. Minimal debris/mucous in the dependent trachea. No pleural effusion or pneumothorax. Degenerative changes throughout the spine. No acute fracture or suspicious bone lesion. Mild gynecomastia is noted. No esophageal abnormality. Imaging through the upper abdomen shows no acute abnormality. CT/CTA Chest W/WO Contrast IMPRESSION: 1. No pulmonary embolus or thoracic aortic aneurysm/dissection. 2. Pulmonary emphysema with possible superimposed interstitial lung disease at the bases. 3. Probable tiny focus of bronchiolitis in the right upper lobe (7 mm) but no consolidating pneumonia or malignancy identified. Follow-up CT chest recommended in 3-6 months. Reading Location: [facility] CC: Dr. Lisa Cobian MD; Dr. Kaushik Seals MD Talent Engineer: Signed Normal [facility] Emergency Department Summary on 06-24-2025 Emergency Department Summary [facility] Medical Records Department [address] [place] [address] Emergency Department Summary 06/24/25 MR#: [id number] Acct: [id number] Name: LUCAS MCCABE Jr. Rep #: [id number] : 1965 60 From: Lisa Cobian MD PCP: Dr. Kaushik Seals MD Status:DEP ER Location: ED HPI History of Present Illness Chief Complaint: Shortness of Breath Narrative Narrative: Patient is a 60-year-old male presenting to the emergency department for generalized weakness. Reportedly the patient was found living in his car covered in feces. Patient has a past medical history of PE, COPD exacerbation, NSTEMI, peripheral vascular disease, type 2 diabetes, hypertension and hyperlipidemia. Patient states that he lives in his car. Reports that he does not eat that much but has lots of cigarettes. He denies being on baseline oxygen for his COPD. States that for the past week or so he has had increased shortness of breath. States he has been smoking a lot. He denies any chest pain. Denies any fever or chills. Denies any new lower extremity edema. He is an extremely poor historian. [facility] Medical History Degenerative disc disease GERD (gastroesophageal reflux disease) PVD (peripheral vascular disease) Hyperlipidemia CAD (coronary artery disease) Diabetes Hypothyroidism Hypertension COPD (chronic obstructive pulmonary disease) Home Medications ???Medication ???Instructions ???Recorded ???Last Taken ???Type duloxetine 60 mg capsule,delayed 60 mg PO BID mental health 4 03/27/20 09:00 History release gabapentin 300 mg capsule 300 mg PO QHS nerve pain 11/29/13 03/27/20 09:00 History lisinopril 20 mg tablet 20 mg PO DAILY blood pressure 05/0603/27/20 09:00 History metformin 500 mg tablet 500 mg PO DAILY diabetes 11/29/13 03/27/20 09:00 History omeprazole 20 mg capsule,delayed 40 mg PO DAILY reflux 11/29/1301/09 09:00 History release albuterol sulfate 2.5 mg/3 mL 2.5 mg (3 mL) inhalation Q2H PRN 0 11/30/13 Unknown Rx (0.083 %) solution for nebulization PRN SHORTNESS OF BREATH ##1 levothyroxine 75 mcg tablet 175 mcg PO DAILY@0600 thyroid 06/2403/27/20 09:00 History budesonide-formoterol HFA 80 2 puff inhalation BID breathing 03/27/20 09:00 History mcg-4.5 mcg/actuation aerosol inhaler (Symbicort) atorvastatin 10 mg tablet 10 mg PO QHS cholesterol 03/27/20 03/27/20 09:00 History meclizine 25 mg tablet 25 mg PO DAILY PRN Dizziness 03/2702/25/20 History apixaban 5 mg tablet 5 mg PO BID 08/21/20 Unknown Histo ry albuterol sulfate 90 mcg/actuation 2 puff inhalation Q4H PRN PRN Unknown Rx aerosol inhaler (Ventolin HFA) Wheezing #6.7 grams lidocaine 5 % topical patch 1 patch topical DAILY PRN pain #15 06/24/23 Unknown Rx (Lidoderm) ea cephalexin 500 mg capsule 500 mg PO Q6 #12 CAPSULES 12/06/24 Unknown Rx hydrocodone-acetaminophen 5-325mg 1 tab PO Q6H PRN pain 3 days #12 06/15/25 Unknown Rx 5mg-325mg tabs prednisone 20 mg tablet 60 mg (3 x 20 mg) PO DAILY #15 Unknown Rx TABLETS doxycycline hyclate 100 mg capsule 100 mg PO BID 5 days #10 caps Unknown Rx prednisone 20 mg tablet 40 mg (2 x 20 mg) PO DAILY 5 days 06/24/25 Unknown Rx #10 tabs Allergy/AdvReac Type Severity Reaction Status Date / Time latex Allergy Anaphylaxis Verified 06/24/25 09:50 zolmitriptan (From Zomig) Allergy Other Verified 06/24/25 09:50 Surgical History Hx of knee surgery Social History Smoking Status: Current every day smoker tobacco type: cigarettes ROS ROS ED ROS Narrative See HPI EXAM Physical Exam Narrative Exam Narrative: Vital signs: Reviewed General: Alert and oriented x 3. No acute distress. Chronically unwell appearing. Dirt on extremities. Foul smelling. HEENT: Head is normocephalic and atraumatic, sinuses nontender, pupils equal round and reactive. Nares are patent. Oropharynx and throat exams normal. Neck: Supple without lymphadenopathy nontender Cardiovascular: Regular rate and rhythm, no murmurs. No rubs or gallops. Normal S1 and S2 Respiratory: Expiratory wheezing heard in all lung gan. No rhonchi or rails. Abdominal: Soft and nontender. Normal bowel sounds. No guarding or rebound. Nonsurgical abdomen Extremities: No asymmetric lower extremity edema. No tenderness. No bruising. Normal range of motion. Normal sensation. Skin: No rash or redness. Neurological: Cranial nerves II through XII are grossly intact. Normal strength and sensation. Normal cerebellar function The rest of the physical exam is unremarkable Const Vital Signs: 06/24/25 09: (more content not included)... Normal [facility] L501.4021on 06-24-2025 Trop T High Sen 19 ng/L Normal <=22 [facility] Comment on above: Performed By: #### L 500.2500, L100.0100, L501.4021 #### [facility] [address] [place], [address] M100.678on 06-24-2025 M100.678 Pending SARS-CoV-2 (COVID 19) Negative INFLUENZA A Negative INFLUENZA B Negative RSV PCR Negative Normal [facility] Comment on above: Performed By: #### L 500.2500, L100.0100, L501.4021 #### [facility] [address] [place], [address] Troponin T HS 2 HRon 025 Trop T High Sen 18 ng/L Normal <=22 [facility] Comment on above: Performed By: #### L 499.0042 #### [facility] [address] [place], [address] Troponin T HS 4 HRon 025 Trop T High Sen Normal <=22 [facility] Comment on above: Result Comment: Canc elled via OM: MD Ordered Performed By: #### L 499.0042 #### [facility] [address] [place], [address] Emergency Department Summary on 06-15-2025 Emergency Department Summary [facility] Medical Records Department [address] [facility] [place] [address] Emergency Department Summary 06/15/25 MR#: [id number] Acct: [id number] Name: LUCAS MCCABE Jr. Rep #: [id number] : 1965 60 From: Kendall Mcconnell DO PCP: Dr. Kaushik Seals MD Status:DEP ER Location: ED HPI History of Present Illness Chief Complaint: Lower Extremity Injury Informant: patient and family Narrative Narrative: 60-year-old male presenting to the emergency room with a chief complaint of right knee pain. Patient states for the past several months he has had knee pain and is waiting to see orthopedics until July. He notes swelling of the knee joint and pain with ambulation. He has not seen primary care for this. He has had no prior evaluation. He notes intermittent leg swelling as well as being on anticoagulants for DVT history. He is a long-term tobacco user with history of COPD. Utilizes a cane. He denies any history of gout. No recent fevers or illnesses. He states he had a prior right knee surgery in which the piece of metal. [facility] Medical History Degenerative disc disease GERD (gastroesophageal reflux disease) PVD (peripheral vascular disease) Hyperlipidemia CAD (coronary artery disease) Diabetes Hypothyroidism Hypertension COPD (chronic obstructive pulmonary disease) Home Medications ???Medication ???Instructions ???Recorded ???Last Taken ???Type duloxetine 60 mg capsule,delayed 60 mg PO BID mental health 4 03/27/20 09:00 History release gabapentin 300 mg capsule 300 mg PO QHS nerve pain 11/29/13 03/27/20 09:00 History lisinopril 20 mg tablet 20 mg PO DAILY blood pressure 05/0603/27/20 09:00 History metformin 500 mg tablet 500 mg PO DAILY diabetes 11/29/13 03/27/20 09:00 History omeprazole 20 mg capsule,delayed 40 mg PO DAILY reflux 11/29/1301/09 09:00 History release albuterol sulfate 2.5 mg/3 mL 2.5 mg (3 mL) inhalation Q2H PRN 0 11/30/13 Unknown Rx (0.083 %) solution for nebulization PRN SHORTNESS OF BREATH ##1 levothyroxine 75 mcg tablet 175 mcg PO DAILY@0600 thyroid 06/2403/27/20 09:00 History budesonide-formoterol HFA 80 2 puff inhalation BID breathing 03/27/20 09:00 History mcg-4.5 mcg/actuation aerosol inhaler (Symbicort) atorvastatin 10 mg tablet 10 mg PO QHS cholesterol 03/27/20 03/27/20 09:00 History meclizine 25 mg tablet 25 mg PO DAILY PRN Dizziness 03/2702/25/20 History apixaban 5 mg tablet 5 mg PO BID 08/21/20 Unknown Histo ry albuterol sulfate 90 mcg/actuation 2 puff inhalation Q4H PRN PRN Unknown Rx aerosol inhaler (Ventolin HFA) Wheezing #6.7 grams lidocaine 5 % topical patch 1 patch topical DAILY PRN pain #15 06/24/23 Unknown Rx (Lidoderm) ea cephalexin 500 mg capsule 500 mg PO Q6 #12 CAPSULES 12/06/24 Unknown Rx hydrocodone-acetaminophen 5-325mg 1 tab PO Q6H PRN pain 3 days #12 06/15/25 Unknown Rx 5mg-325mg tabs prednisone 20 mg tablet 60 mg (3 x 20 mg) PO DAILY #15 Unknown Rx TABLETS Allergy/AdvReac Type Severity Reaction Status Date / Time latex Allergy Anaphylaxis Verified 06/15/25 10:12 zolmitriptan (From Zomig) Allergy Other Verified 06/15/25 10:12 Surgical History Hx of knee surgery Social History Smoking Status: Current every day smoker tobacco type: cigarettes ROS ROS ED Constitutional Constitutional ED: Denies chills, fever(s) or weight loss Eyes Eyes: Denies change in vision or diplopia ENT ENT ED: Denies ear pain, rhinorrhea or sore throat Cardiovascular Cardiovascular: Denies chest pain, orthopnea, palpitations or racing heartbeat Respiratory/Chest Respiratory/Chest: Reports cough, dyspnea and dyspnea on exertion; Denies orthopnea Gastrointestinal Gastrointestinal: Denies abdominal pain, diarrhea, nausea or vomiting Genitourinary Genitourinary ED: Denies dysuria, hematuria or urinary frequency Musculoskeletal Musculoskeletal: Reports back pain and other Details: Right knee pain times several months ; Denies arthralgias or myalgias Integumentary Denies abscess or rash Neurologic Neurologic: Denies headache(s) or weakness Psychiatric Psychiatric: Denies anxiety, depression, suicidal ideation or suicidal thoughts Endocrine Endocrinology: Denies polydipsia, polyphagia or polyuria Allergic/Immunologic Allergic/Immunologic ED: Denies mouth swelling, tongue swelling or urticaria EXAM Physical Exam Const Vital Signs: 06/15/25 10:09 Temperature 98 F Temperature Source Temporal Pulse Rate 81 Respiratory Rate 18 Blood Pressure 169/94 H Blood Pressure Mean 119 (more content not included)... Normal [facility] Knee 4 or More Viewson 06-15 Knee 4 or More Views [facility] [address] [place] [place] [id number] Knee 4 or More Views MR#: [id number] Acct: [id number] Name: LUCAS MCCABE Jr. Rep #: [id number] : 1965 M 60 From: Artemio Vuong MD PCP: Dr. Kaushik Seals MD Status: REG ER Study: Knee 4 or More Views Date of Exam: 06/15/25 Exam# [id number] Ordering Dr: Kendall Mcconnell DO PROCEDURE: KNEE 4 OR MORE VIEWS 06/15/2025 REASON FOR EXAM: SWELLING AND PAIN TECHNIQUE: Procedure Code: RADKN Modality: DX Procedure: KNEE 4 OR MORE VIEWS Laterality: Right COMPARISON: None FINDINGS: Bones: No fracture or suspicious osseous lesion Joints: Age consistent tricompartmental arthrosis with chondrocalcinosis Effusion: Small suprapatellar effusion Soft tissues: Medial soft tissue swelling Other: RAD/Knee 4 or More Views IMPRESSION: Tricompartmental arthrosis with chondrocalcinosis No fracture or suspicious osseous lesion Suprapatellar effusion with medial soft tissue swelling Reading Location: [facility] CC: Dr. Kendall Mcconnell DO; Dr. Kaushik Seals MD Talent Engineer: Signed [facility] 04-30-2025 [facility] Telephone (PHMEWO) -- LUCAS MCCABE ([id number]) 1965 M Date Time Provider Department 04/30/25 MARKY SCOTT MEKRYSTEN During your visit today, we recorded the following information about you: Marky Scott RPh 04/30/2025 2:43 PM Signed Called patient for scheduled phone appt today x 2. Unable to reach, dial tone was continuous and then would disconnect. Not able to leave voicemail. Primary Care Pharmacy Rescheduling Outreach Call center, please contact patient and reschedule telephone visit for Diabetes management within ~4 week(s). (Visit length: 30 minutes) Thank you, Marky Scott [facility] 04/30/2025 2:42 PM Norma Matta, PSS 04/30/2025 2:56 PM Signed Telephoned the patient regarding missed appt. Not able to leave a message due to no voicemail. Norma Matta, PSS 05/01/2025 9:53 AM Signed Telephoned the patient regarding missed appointment. New appt on 05/21/25. Allergies As of Date: 04/30/2025 Noted Allergy Reaction LATEX 01/18/2009 5 - Intolerance Comments: Headache, dizzy, trouble breathing ZOMIG (ZOLMITRIPTAN) 12/08/2004 1 - Mental Status Change Date Reviewed: 04/24/2025 Reviewed by: Vanessa Capone MA - Fully Assessed Reason for Visit: Missed Appointment [1304] Cmt: Primary care reschedule Prescriptions as of 05/01/2025 - furosemide (LASIX) 40 mg tablet Take 1 tablet by mouth once daily. - meclizine (ANTIVERT) 25 mg tab Take 1 tablet by mouth every 6 hours as needed (for dizziness). - dulaglutide (TRULICITY) 0.75 mg/0.5 mL pen injector Inject 0.75 mg subcutaneously one time a week. - guaiFENesin (MUCINEX) 600 mg 12 hr tablet Take 2 tablets by mouth two times a day as needed for cold/allergy symptoms. - omeprazole (PRILOSEC) 40 mg capsule Take 1 capsule by mouth once daily. - blood sugar diagnostic (BLOOD GLUCOSE TEST) test strip Use as instructed to check blood sugar twice daily. Please fill with brand covered by patient's insurance. - Lancets Use as instructed to check blood sugar twice daily and as needed. - levothyroxine (SYNTHROID) 200 mcg tablet Take 1 tablet by mouth once daily. Take on empty stomach. For Thyroid. - levothyroxine (SYNTHROID) 88 mcg tablet Take 1 tablet by mouth once daily. Take 1 tablet by mouth once daily. Take on empty stomach. For Thyroid. To be taken with Levothyroxine 200 mcg tablet to make 288 mcg - Nebulizer Accessories kit 1 kit as needed. - ipratropium-albuterol (DUONEB) 0.5 mg-3 mg(2.5 mg base)/3 mL nebu Inhale 3 mL as instructed every 6 hours as needed for wheezing/shortness of breath. - atorvastatin (LIPITOR) 40 mg tablet Take 1 tablet by mouth once daily. - Blood-Glucose Sensor (FREESTYLE MANDEEP 3 PLUS SENSOR) nadeem Apply new sensor every fifteen (15) days to upper arm. - metFORMIN ER (GLUCOPHAGE XR) 500 mg 24 hr tablet Take 2 tablets by mouth two times a day. - ergocalciferol 50,000 unit capsule (VITAMIN D2, DRISDOL) Take 1 capsule by mouth two times a week for 30 days, THEN 1 capsule one time a week. - glimepiride (AMARYL) 4 mg tablet Take 1 tablet by mouth two times a day with meals. - gabapentin (NEURONTIN) 300 mg capsule Take 1 capsule by mouth two times a day for 180 days. - albuterol HFA (VENTOLIN HFA) 90 mcg/actuation inhaler INHALE 2 PUFFS ORALLY DIRECTED EVERY 4 HOURS NEEDED - mhqjniedxu-axcjvajy-eokspq mauricio (BREZTRI AEROSPHERE) 160-9-4.8 mcg/actuation HFA aerosol inhaler Inhale 2 Puffs as instructed two times a day. - DULoxetine (CYMBALTA) 60 mg capsule Take 1 capsule by mouth two times a day. - lisinopril (ZESTRIL) 20 mg tablet Take 1 tablet by mouth once daily. - apixaban (ELIQUIS) 5 mg tab(s) Take 1 tablet by mouth two times a day. 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] MYALGIA AND MYOSITIS NOS [VUS8674] NEURALGIA/NEURITIS NOS [WAU9254] Embolism and thrombosis (HCC) [I74.9] GENERAL OSTEOARTHROSIS [M15.9] ESOPHAGEAL REFLUX [K21.9] Essential hypertension [I10] SPINAL STENOSIS-LUMBAR [M48.061] 07/08/2005 PRIMARY HYPERCOAGULABLE STATE [D68.59] 08/27/2005 Tobacco Use Disorder [F17.200] 06/05/2009 DM w/o Complication Type II [E11.9] 11/07/2009 03/05/2014 Other Acquired Deformity of Toe [M20.5X9] 11/14/2009 Pain in Soft Tissues of Limb [M79.609] 11/14/2009 Dermatophytosis of Nail [B35.1] 11/14/2009 DM Neuro Manif Type II [E11.49] 11/14/2009 06/05/2014 Corns and Callosities [L84] 11/14/2009 Venous insufficiency [I87.2] 02/10/2011 Pain in joint, shoulder region [M25.519] 05/18/2011 Chronic pain [G89.29] 10/09/2013 Lumbar disc displacement without myelopathy [M5*10/09/2013 DDD (more content not included)... Normal [facility] 25(OH)D3 [facility] 2024 25-hydroxyvitamin D3 [Mass/Vol] 56.0 ng/mL Normal 31.0-80.0 [facility] Comment on above: Order Comment: Speci men Type: BLOOD SPECIMENOrdering Facility: [facility] Address: [address] [place] [address] Result Comment: Clas sification of 25 [place] Vitamin D status: Deficiency/Insufficiency: < or = 30 ng/ml. Sufficiency/Optimal Levels: 31-80 ng/mL Toxicity: > 100 ng/mL. Test performed by chemiluminescent immunoassay. Performed By: #### 1 [id number] ####[facility] LABCLIA [id number] [address] [place] CNOVon 04-24-2025 CNOV Office Visit (FAMPWS ) -- LUCAS MCCABE ([id number]) 1965 M Date Time Provider Department 04/24/25 11:00 AM KAUSHIK SEALS During your visit today, we recorded the following information about you: Pulse Respiration Blood pressure Weight 88/minute 18/minute 138/88 146.7 kg Kaushik Seals MD 04/24/2025 5:31 PM Signed Chief Complaint Patient presents with: F/U 3 Month HPI Lucas Mccabe is a 60 year old male who presents here today for 3 month follow up. GERD: Stable on Prilosec 40 mg daily. DM: Working with Pharmacist. Taking Trulicity 0.75 mg weekly, Metformin 500 mg 2 pills BID and Amaryl 4 mg 1 pill BID. No hypoglycemic episodes. HTN: Taking Lisinopril 20 mg Lipid: Taking Lipitor. Denies watching diet or exercise. DM Neuropathy/DDD/chronic pain syndrome: Taking Gabapentin 300 mg at night and Cymbalta 60 mg 1 pill BID. COPD/emphysema: follows with Pulmonary, using inahlers. Thyroid: Taking Synthroid 200 mcg and 88 mcg daily. Edema: mónica legs; stable on Lasix 40 mg daily. Is taking Eliqius 5 mg BID for embolism/thrombosis. Has right hip, knee, down the entire right leg into foot that has been an issues for some time but worsened over the last 1 month or so. He thinks it is swollen. He uses a cane. He takes OTC pain relievers used. No heat or ice used. Tries to stretch it some. He c/o of numbness/tingling in the leg. Past medical history, appointments, medications, allergies reviewed. Previous Medical History PAST MEDICAL HISTORY Diagnosis Date Chronic pain Displacement of intervertebral disc, site unspecified, without myelopathy 05/06/2005 DVT (deep venous thrombosis) ([facility]) Esophageal reflux Factor V Leiden mutation ([facility]) Generalized osteoarthrosis, unspecified site Hypothyroidism Myalgia and myositis, unspecified Neuralgia, neuritis, and radiculitis, unspecified Obesity, unspecified LEONEL (obstructive sleep apnea) Pulmonary embolism (HCC) 03/2020 Spondylosis of unspecified site without mention of myelopathy Thoracic or lumbosacral neuritis or radiculitis, unspecified 04/01/2005 Type 2 diabetes mellitus (HCC) Unspecified essential hypertension Previous Surgical History PAST SURGICAL HISTORY Procedure Laterality Date ARTHROSCOPY KNEE DIAGNOSTIC W/WO SYNOVIAL BX SPX 04/17/2003 Arthroscopy, knee, right knee COLONOSCOPY FLX DX W/COLLJ SPEC WHEN PFRMD 05/21/2014 Colonoscopy COLONOSCOPY FLX DX W/COLLJ SPEC WHEN PFRMD 05/27/15 Colonoscopy ESOPHAGOGASTRODUODENOSCOPY TRANSORAL DIAGNOSTIC 05/21/2014 EGD Family History FAMILY HISTORY Problem Relation Age of Onset Diabetes Mother Hypertension Mother Cancer Mother pancreas Lung Cancer Mother Heart Father COPD Sister other (breathing issues) Sister Factor 5 Leiden Sister Patient Allergies ALLERGIES Allergen Reactions Latex Intolerance Headache, dizzy, trouble breathing Zomig [Zolmitriptan] Mental Status Change Current Medications Current Outpatient Medications on File Prior to Visit Medication Sig meclizine (ANTIVERT) 25 mg tab Take 1 tablet by mouth every 6 hours as needed (for dizziness). dulaglutide (TRULICITY) 0.75 mg/0.5 mL pen injector Inject 0.75 mg subcutaneously one time a week. guaiFENesin (MUCINEX) 600 mg 12 hr tablet Take 2 tablets by mouth two times a day as needed for cold/allergy symptoms. omeprazole (PRILOSEC) 40 mg capsule Take 1 capsule by mouth once daily. blood sugar diagnostic (BLOOD GLUCOSE TEST) test strip Use as instructed to check blood sugar twice daily. Please fill with brand covered by patient's insurance. Lancets Use as instructed to check blood sugar twice daily and as needed. levothyroxine (SYNTHROID) 200 mcg tablet Take 1 tablet by mouth once daily. Take on empty stomach. For Thyroid. levothyroxine (SYNTHROID) 88 mcg tablet Take 1 tablet by mouth once daily. Take 1 tablet by mouth once daily. Take on empty stomach. For Thyroid. To be taken with Levothyroxine 200 mcg tablet to make 288 mcg Nebulizer Accessories kit 1 kit as needed. ipratropium-albuterol (DUONEB) 0.5 mg-3 mg(2.5 mg base)/3 mL nebu Inhale 3 mL as instructed every 6 hours as needed for wheezing/shortness of breath. atorvastatin (LIPITOR) 40 mg tablet Take 1 tablet by mouth once daily. Blood-Glucose Sensor (FREESTYLE MANDEEP 3 PLUS SENSOR) nadeem Apply new sensor every fifteen (15) days to upper arm. metFORMIN ER (GLUCOPHAGE XR) 500 mg 24 hr tablet Take 2 tablets by mouth two times a day. ergocalciferol 50,000 unit capsule (VITAMIN D2, DRISDOL) Take 1 capsule by mouth two times a week for 30 days, THEN 1 capsule one time a week. glimepiride (AMARYL) 4 mg tablet Take 1 tablet by mouth two times a day with meals. gabapentin (NEURONTIN) 300 mg capsule Take 1 capsule by mouth two times a day for 180 days. albuterol HFA (VENTOLIN HFA) 90 mcg/actuation inhaler INHALE 2 PUFFS (more content not included)... Normal [facility] Comprehensive metabolic 2000 panelon 04-24-2025 Albumin [Mass/Vol] 4.1 g/dL Normal 3.9-4.9 [facility] Comment on above: Order Comment: Speci men Type: BLOOD SPECIMENOrdering Facility: [facility] Address: [address] [place] [address] Performed By: #### 3 [id number], [id number], 3027, 09470-3 ####[facility] C[facility] [id number] [place] [address] [place] ALP [Catalytic activity/Vol] 114 U/L High 38-113 [facility] Comment on above: Order Comment: Speci men Type: BLOOD SPECIMENOrdering Facility: [facility] Address: [address] [place] [address] Performed By: #### 3 016-3, 50967-4, 7, 28063-2 ####[facility] [id number] [place] [id number] [place] ALT [Catalytic activity/Vol] 12 U/L Normal 10-54 [facility] Comment on above: Order Comment: Speci men Type: BLOOD SPECIMENOrdering Facility: [facility] Address: [address] [place] [address] Performed By: #### 3 016-3, 55502-9, 7, 30233-2 ####[facility] LABCLIA [id number] [address] [address] [place] Anion gap [Moles/Vol] 15 mmol/L Normal 8-15 [facility] Comment on above: Order Comment: Speci men Type: BLOOD SPECIMENOrdering Facility: [facility] Address: [address] [place] [address] Performed By: #### 3 016-3, 40530-3, 3027, 73336-8 ####[facility] LABCLIA [id number] [address] [address] [place] AST [Catalytic activity/Vol] 13 U/L Low 14-40 [facility] Comment on above: Order Comment: Speci men Type: BLOOD SPECIMENOrdering Facility: [facility] Address: [address] [place] [address] Performed By: #### 3 016-3, 47344-6, 7, 10832-7 ####[facility] LABCLIA [id number] [place] [id number] [place] Bilirubin [Mass/Vol] 0.6 mg/dL Normal 0.2-1.3 [facility] Comment on above: Order Comment: Speci men Type: BLOOD SPECIMENOrdering Facility: [facility] Address: [address] [place] [address] Performed By: #### 3 016-3, 19800-4, 7, 76684-5 ####[facility] LABCLIA [id number] [address] [address] [place] Calcium [Mass/Vol] 9.4 mg/dL Normal 8.5-10.2 [facility] Comment on above: Order Comment: Speci men Type: BLOOD SPECIMENOrdering Facility: [facility] Address: [address] [place] [address] Performed By: #### 3 016-3, 01873-0, 3027, 92649-4 ####[facility] LABCLIA [id number] [address] [address] [place] Chloride [Moles/Vol] 98 mmol/L Normal 98-107 [facility] Comment on above: Order Comment: Speci men Type: BLOOD SPECIMENOrdering Facility: [facility] Address: [address] [place] [address] Performed By: #### 3 016-3, 65053-5, 302-7, 95647-7 ####[facility] LABCLIA [id number] [address] [address] [place] CO2 [Moles/Vol] 23 mmol/L Normal 22-30 [facility] Comment on above: Order Comment: Speci men Type: BLOOD SPECIMENOrdering Facility: [facility] Address: [address] [place] [address] Performed By: #### 3 016-3, 24786-7, 302-7, 09599-7 ####[facility] LABCLIA [id number] [place] [id number] [place] Creatinine [Mass/Vol] 0.80 mg/dL Normal 0.73-1.22 [facility] Comment on above: Order Comment: Speci men Type: BLOOD SPECIMENOrdering Facility: [facility] Address: [address] [place] [address] Performed By: #### 3 016-3, 36601-5, 302-7, 31242-9 ####[facility] LABCLIA [id number] [address] [address] [place] eGFRcr SerPlBld CKD-EPI 2020 101 mL/min/1.73m??? Normal >=60 [facility] Comment on above: Order Comment: Speci men Type: BLOOD SPECIMENOrdering Facility: [facility] Address: [address] [place] [address] Result Comment: Josefina mated Glomerular Filtration Rate (eGFR) is calculated using the 2020 CKD-EPI creatinine equation. This equation utilizes serum creatinine, sex, and age as parameters. The creatinine assay has traceable calibration to isotope dilution-mass spectrometry. Refer to KDIGO guidelines for clinical interpretation. In patients with unstable renal function, e.g. those with acute kidney injury, the eGFR may not accurately reflect actual GFR. Performed By: #### 3 016-3, 28446-8, 7, 39782-0 ####[facility] LABCLIA [id number] [address] [address] [place] Glucose [Mass/Vol] 118 mg/dL High 74-99 [facility] Comment on above: Order Comment: Speci men Type: BLOOD SPECIMENOrdering Facility: [facility] Address: [address] [place] [address] Result Comment: The [place] Diabetes Association (ADA) provides guidance for cutoff values for fasting glucose and random glucose. The ADA defines fasting as no caloric intake for at least 8 hours. Fasting plasma glucose results between 100 to 125 mg/dL indicate increased risk for diabetes (prediabetes). Fasting plasma glucose results greater than or equal to 126 mg/dL meet the criteria for diagnosis of diabetes. In the absence of unequivocal hyperglycemia, results should be confirmed by repeat testing. In a patient with classic symptoms of hyperglycemia or hyperglycemic crisis, random plasma glucose results greater than or equal to 200 mg/dL meet the criteria for diagnosis of diabetes. Reference: Standards of Medical Care in Diabetes 2016, [place] Diabetes Association. Diabetes Care. 2016.39(Suppl 1). Performed By: #### 3 016-3, 07848-6, 3024-02, ####[facility] LABIA [id number] [address] [address] [place] Potassium [Moles/Vol] 4.1 mmol/L Normal 3.7-5.1 [facility] Comment on above: Order Comment: Hilary bella Type: BLOOD SPECIMENOrdering Facility: [facility] Address: [address] [place] [address] Performed By: #### 3 016-3, 59982-4, 3024-02, 71574-3 ####[facility] LABIA [id number] [address] [address] [place] Protein [Mass/Vol] 7.1 g/dL Normal 6.3-8.0 [facility] Comment on above: Order Comment: Speci men Type: BLOOD SPECIMENOrdering Facility: [facility] Address: [address] [place] [address] Performed By: #### 3 016-3, 46597-6, 3024-7, 69487-2 ####[facility] LABIA [id number] [place] [id number] [place] Sodium [Moles/Vol] 136 mmol/L Normal 136-144 [facility] Comment on above: Order Comment: Speci men Type: BLOOD SPECIMENOrdering Facility: [facility] Address: [address] [place] [address] Performed By: #### 3 016-3, 42122-1, 3024-7, 44500-1 ####[facility] [id number] [place] [address] [place] Urea nitrogen [Mass/Vol] 15 mg/dL Normal 9-24 [facility] Comment on above: Order Comment: Speci men Type: BLOOD SPECIMENOrdering Facility: [facility] Address: [address] [place] [address] Performed By: #### 3 016-3, 32180-9, 3024-7, 82330-2 ####[facility] [id number] [address] [address] [place] HbA1c (Bld)on 04-24-2025 Average glucose Estimated from glycated hemoglobin (Bld) [Mass/Vol] 214 mg/dL Normal [facility] Comment on above: Order Comment: Speci men Type: BLOOD SPECIMENOrdering Facility: [facility] Address: [address] [place] [address] Result Comment: eAG: (Estimated average glucose) is a calculated value from HgbA1c and is rental sales representative of the average blood glucose level in the last 2-3 month period. Performed By: #### 5 5454-3 ####[facility] LABCLIA [id number] [place] [address] [place] HbA1c (Bld) [Mass fraction] 9.1 % High 4.3-5.6 [facility] Comment on above: Order Comment: Speci men Type: BLOOD SPECIMENOrdering Facility: [facility] Address: [address] [place] [address] Result Comment: [place] Diabetes Association guidelines indicate that patients with HgbA1c in the range 5.7-6.4% are at increased risk for development of diabetes, and intervention by lifestyle modification may be beneficial. HgbA1c greater or equal to 6.5% is considered diagnostic of diabetes. Performed By: #### 5 5454-3 ####[facility] LABCLIA [id number] [place] [address] [place] Lipid 1996 panelon 5 Cholesterol [Mass/Vol] 126 mg/dL Normal <200 [facility] Comment on above: Order Comment: Hilary bella Type: BLOOD SPECIMENOrdering Facility: [facility] Address: [address] [place] [address] Result Comment: <200 mg/dL, Desirable 200-239 mg/dL, Borderline high >239 mg/dL, High Performed By: #### 3 016-3, 00547-7, 3024-7, 02329-0 ####[facility] LABCLIA [id number] [address] [place] Cholesterol in HDL [Mass/Vol] 37 mg/dL Low >39 [facility] Comment on above: Order Comment: Hilary bella Type: BLOOD SPECIMENOrdering Facility: [facility] Address: [address] [place] [address] Result Comment: 40-5 9 mg/dL, Acceptable >59 mg/dL, High: Negative risk factor for coronary heart disease <40 mg/dL, Low: Positive risk factor for coronary heart disease Performed By: #### 3 016-3, 72637-8, 7, ####[facility] LABCLIA [id number] [place] [id number] [place] Cholesterol in LDL [Mass/Vol] 63 mg/dL Normal <100 [facility] Comment on above: Order Comment: Speci men Type: BLOOD SPECIMENOrdering Facility: [facility] Address: [address] [place] [address] Result Comment: <100 mg/dL, Optimal 100-129 mg/dL, Near optimal/above optimal 130-159 mg/dL, Borderline high 160-189 mg/dL, High >189 mg/dL, Very high Secondary prevention optimal LDL Cholesterol levels are recommended to be <70 mg/dL LDL cholesterol is calculated using the Auguste-NIH equation. Performed By: #### 3 016-3, 30745-8, 7, ####[facility] [id number] [address] [place] Cholesterol in LDL/Cholesterol in HDL [Mass ratio] 1.70 {ratio} Normal <2.54 [facility] Comment on above: Order Comment: Speci men Type: BLOOD SPECIMENOrdering Facility: [facility] Address: [address] [place] [address] Result Comment: Refe rence: 1. National Cholesterol Education Program ATP III Guideline At-A-Glance Quick Desk Reference: National Heart, Lung, and Blood [place]. National Institutes of Health. 2001: NIH Publication No. 01-3305. 2. An International Atherosclerosis Society position paper: global recommendations for the management of dyslipidemia: executive summary, Atherosclerosis. 2014: 232(2):410-413. Performed By: #### 3 016-3, 24096-0, 7, 55159-0 ####[facility] LABIA [id number] [place] [id number] [place] Cholesterol in VLDL [Mass/Vol] 22 mg/dL Normal <30 [facility] Comment on above: Order Comment: Speci men Type: BLOOD SPECIMENOrdering Facility: [facility] Address: [address] [place] [address] Performed By: #### 3 016-3, 07737-1, 3024-02, 44305-1 ####[facility] LABCLIA [id number] [facility] [address] [place] [address] [place] Cholesterol non HDL [Mass/Vol] 89 mg/dL Normal <130 [facility] Comment on above: Order Comment: Speci men Type: BLOOD SPECIMENOrdering Facility: [facility] Address: [address] [place] [address] Result Comment: <130 mg/dL, Optimal 130-159 mg/dL, Near optimal/above optimal 160-189 mg/dL, Borderline high 190-219 mg/dL, High >219 mg/dL, Very high Secondary prevention optimal non HDL Cholesterol levels are recommended to be <100 mg/dL Performed By: #### 3 016-3, 22764-2, 3024-02, 28709-6 ####[facility] LABCLIA [id number] [address] [place] [address] [place] Cholesterol.total/Chol esterol in HDL [Mass ratio] 3.41 {ratio} Normal <5.10 [facility] Comment on above: Order Comment: Speci men Type: BLOOD SPECIMENOrdering Facility: [facility] Address: [address] [place] [address] Performed By: #### 3 016-3, 89388-6, 3024-02, 21484-1 ####[facility] LABCLIA [id number] [facility] [address] [place] [address] [place] FASTING TIME 14 hrs Normal [facility] Comment on above: Order Comment: Speci men Type: BLOOD SPECIMENOrdering Facility: [facility] Address: [address] [place] [address] Performed By: #### 3 016-3, 93982-8, 3024-02, 97031-0 ####[facility] LABCLIA [id number] [address] [address] [place] Triglyceride [Mass/Vol] 149 mg/dL Normal <150 [facility] Comment on above: Order Comment: Speci men Type: BLOOD SPECIMENOrdering Facility: [facility] Address: [address] [place] [address] Result Comment: <150 mg/dL, Normal 150-199 mg/dL, Borderline high 200-499 mg/dL, High >499 mg/dL, Very high Performed By: #### 3 016-3, 73098-5, 3024-7, 74382-5 ####[facility] LABCLIA [id number] [address] [place] T4 Free SerPl-mCncon 025 Free T4 [Mass/Vol] 0.6 ng/dL Low 0.9-1.7 [facility] Comment on above: Order Comment: Speci men Type: BLOOD SPECIMENOrdering Facility: [facility] Address: [address] [place] [address] Performed By: #### 3 016-3, 78929-9, 3024-7, 51598-5 ####[facility] LABIA [id number] [address] [place] TSH SerPl-aCncon 04-24-2025 TSH Qn 32.800 m[IU]/L High 0.270-4.200 [facility] Comment on above: Order Comment: Speci men Type: BLOOD SPECIMENOrdering Facility: [facility] Address: [address] [place] [address] Performed By: #### 3 016-3, 46219-7, 3024-7, 07017-4 ####[facility] LABIA [id number] [address] [place] Elisabet 04-06-2025 DARNELLN Telephone (INTMWS) -- LUCAS MCCABE ([id number]) 1965 M Date Time Provider Department 04/06/25 KAUSHIK SEALSWS During your visit today, we recorded the following information about you: Allyson Ball LPN 04/06/2025 2:35 PM Signed PA for meclizine 50mg. Insurance is asking if this can be meclizine 25mg or complete PA? Micky Cabezas APRN.CNP 04/09/2025 5:01 AM Signed Please let the patient know that insurance will not cover the 50 mg of Meclizine. Will only 25 mg. New RX sent. The following approved medication requests have been transmitted electronically. Requested Prescriptions Signed Prescriptions Disp Refills meclizine (ANTIVERT) 25 mg tab 90 tablet 1 Sig: Take 1 tablet by mouth every 6 hours as needed (for dizziness). Authorizing Provider: MICKY CABEZAS APRN.CNP Rowland, Kathryn, MA 04/09/2025 8:44 AM Signed Pt notified. Vanessa Capone MA Allergies As of Date: 04/06/2025 Noted Allergy Reaction LATEX 01/18/2009 5 - Intolerance Comments: Headache, dizzy, trouble breathing ZOMIG (ZOLMITRIPTAN) 12/08/2004 1 - Mental Status Change Date Reviewed: 02/06/2025 Reviewed by: Jillian Wright APRN.CNP - Fully Assessed Reason for Visit: Insurance Authorization [[id number]] Primary Visit Diagnosis:Dizziness [R42] Order(s):meclizine (ANTIVERT) 25 mg tabTake 1 tablet by mouth every 6 hours as needed (for dizziness).Disp: 90 tabletRfl: 1 Prescriptions as of 04/09/2025 - meclizine (ANTIVERT) 25 mg tab Take 1 tablet by mouth every 6 hours as needed (for dizziness). - guaiFENesin (MUCINEX) 600 mg 12 hr tablet Take 2 tablets by mouth two times a day as needed for cold/allergy symptoms. - omeprazole (PRILOSEC) 40 mg capsule Take 1 capsule by mouth once daily. - blood sugar diagnostic (BLOOD GLUCOSE TEST) test strip Use as instructed to check blood sugar twice daily. Please fill with brand covered by patient's insurance. - Lancets Use as instructed to check blood sugar twice daily and as needed. - levothyroxine (SYNTHROID) 200 mcg tablet Take 1 tablet by mouth once daily. Take on empty stomach. For Thyroid. - levothyroxine (SYNTHROID) 88 mcg tablet Take 1 tablet by mouth once daily. Take 1 tablet by mouth once daily. Take on empty stomach. For Thyroid. To be taken with Levothyroxine 200 mcg tablet to make 288 mcg - Nebulizer Accessories kit 1 kit as needed. - ipratropium-albuterol (DUONEB) 0.5 mg-3 mg(2.5 mg base)/3 mL nebu Inhale 3 mL as instructed every 6 hours as needed for wheezing/shortness of breath. - atorvastatin (LIPITOR) 40 mg tablet Take 1 tablet by mouth once daily. - Blood-Glucose Sensor (FREESTYLE MANDEEP 3 PLUS SENSOR) nadeem Apply new sensor every fifteen (15) days to upper arm. - metFORMIN ER (GLUCOPHAGE XR) 500 mg 24 hr tablet Take 2 tablets by mouth two times a day. - ergocalciferol 50,000 unit capsule (VITAMIN D2, DRISDOL) Take 1 capsule by mouth two times a week for 30 days, THEN 1 capsule one time a week. - glimepiride (AMARYL) 4 mg tablet Take 1 tablet by mouth two times a day with meals. - gabapentin (NEURONTIN) 300 mg capsule Take 1 capsule by mouth two times a day for 180 days. - albuterol HFA (VENTOLIN HFA) 90 mcg/actuation inhaler INHALE 2 PUFFS ORALLY DIRECTED EVERY 4 HOURS NEEDED - zzzcyrqbez-hgbipgpm-djankc mauricio (BREZTRI AEROSPHERE) 160-9-4.8 mcg/actuation HFA aerosol inhaler Inhale 2 Puffs as instructed two times a day. - DULoxetine (CYMBALTA) 60 mg capsule Take 1 capsule by mouth two times a day. - furosemide (LASIX) 40 mg tablet Take 1 tablet by mouth once daily. - lisinopril (ZESTRIL) 20 mg tablet Take 1 tablet by mouth once daily. - apixaban (ELIQUIS) 5 mg tab(s) Take 1 tablet by mouth two times a day. 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] MYALGIA AND MYOSITIS NOS [LUL5425] NEURALGIA/NEURITIS NOS [ENM3882] Embolism and thrombosis (HCC) [I74.9] GENERAL OSTEOARTHROSIS [M15.9] ESOPHAGEAL REFLUX [K21.9] Essential hypertension [I10] SPINAL STENOSIS-LUMBAR [M48.061] 07/08/2005 PRIMARY HYPERCOAGULABLE STATE [D68.59] 08/27/2005 Tobacco Use Disorder [F17.200] 06/05/2009 DM w/o Complication Type II [E11.9] 11/07/2009 03/05/2014 Other Acquired Deformity of Toe [M20.5X9] 11/14/2009 Pain in Soft Tissues of Limb [M79.609] 11/14/2009 Dermatophytosis of Nail [B35.1] 11/14/2009 DM Neuro Manif Type II [E11.49] 11/14/2009 06/05/2014 Corns and Callosities [L84] 11/14/2009 Venous insufficiency [I87.2] 02/10/2011 Pain in joint, shoulder region [M25.519] 05/18/2011 Chronic pain [G89.29] 10/09/2013 Lumbar disc dis (more content not included)... Normal [facility] CNOVon 02-06-2025 CNOV Office Visit (PULMWS ) -- LUCAS MCCABE ([id number]) 1965 M Date Time Provider Department 02/06/25 1:00 PM JILLIAN WRIGHT PULMWS During your visit today, we recorded the following information about you: Pulse Blood pressure Weight 83/minute 141/85 145.8 kg Jillian Wright APRN.DIRECTOR HAIR 02/06/2025 1:37 PM Signed Pulmonary Medicine Patients name: Lucas Mccabe PCP: Kaushik Seals MD CC: follow-up HPI: Lucas Mccabe is a 59 year old male current heavy smoker with PMH significant for morbid obesity, HTN, GERD, FVL mutation, PE/DVT, DM, hypothyroidism, COPD/GOLD 3, LEONEL not on CPAP, noncompliant with nocturnal O2, lung nodules. Referred back to pulmonary 10/2024 for COPD with c/o severe dyspnea on exertion and chronic cough. Smoking 2 ppd with no desire to quit. Updated PFT with severe obstruction. Recommended triple therapy, weight loss and smoking cessation. Re-enrolled in [facility]. Current inhaled therapy with Breztri and PRN Albuterol. He presents today for follow-up. Today, patient reports continued cough with occasional clear/yellow sputum. He has used mucinex in the past but has not used recently. Cough can be bothersome. No hemoptysis. Occasional wheezing. No dyspnea at rest. Exertional dyspnea has not changed. No fevers, chills, or night sweats. No changes in weight. No recent hospitalizations or ED visits or upper respiratory infections. Currently using Albuterol 4x a day. Continues to smoke, 1-2 packs a day. Does not desire to quit. Previously had a nebulizer but it was lost. DME: [employer] Noncompliant with nocturnal O2 PAST MEDICAL HISTORY Diagnosis Date Chronic pain Displacement of intervertebral disc, site unspecified, without myelopathy 05/06/2005 DVT (deep venous thrombosis) (HCC) Esophageal reflux Factor V Leiden mutation (HCC) Generalized osteoarthrosis, unspecified site Hypothyroidism Myalgia and myositis, unspecified Neuralgia, neuritis, and radiculitis, unspecified Obesity, unspecified LEONEL (obstructive sleep apnea) Pulmonary embolism (HCC) 03/2020 Spondylosis of unspecified site without mention of myelopathy Thoracic or lumbosacral neuritis or radiculitis, unspecified 04/01/2005 Type 2 diabetes mellitus (HCC) Unspecified essential hypertension Allergies: Latex Intolerance Comment:Headache, dizzy, trouble breathing Zomig [Zolmitriptan] Mental Status Change Medication List Accurate as of February 04, 2025 1:15 PM. If you have any questions, ask your nurse or doctor. CONTINUE taking these medications albuterol HFA 90 mcg/actuation inhaler Commonly known as: VENTOLIN HFA INHALE 2 PUFFS ORALLY DIRECTED EVERY 4 HOURS NEEDED apixaban 5 mg tab(s) Commonly known as: ELIQUIS Take 1 tablet by mouth two times a day. atorvastatin 10 mg tablet Commonly known as: LIPITOR Take 1 tablet by mouth once daily. blood sugar diagnostic test strip Commonly known as: BLOOD GLUCOSE TEST Test blood sugar(s) 1 times daily. Dx: Type 2 DM - Uncontrolled E11.65 Insulin: No Blood-Glucose Meter monitoring kit Glucose Meter of Choice - Kit - Dx: Type 2 DM - Uncontrolled E11.65 BREZTRI AEROSPHERE 160-9-4.8 mcg/actuation HFA aerosol inhaler Generic drug: bbgdalhbee-sqyosimm-hqbgsw mauricio Inhale 2 Puffs as instructed two times a day. DULoxetine 60 mg capsule Commonly known as: CYMBALTA Take 1 capsule by mouth two times a day. ergocalciferol (vitamin D2) 50,000 unit capsule Commonly known as: VITAMIN D2 Take 1 capsule by mouth two times a week for 30 days, THEN 1 capsule one time a week. Start taking on: January 17, 2025 furosemide 40 mg tablet Commonly known as: LASIX Take 1 tablet by mouth once daily. gabapentin 300 mg capsule Commonly known as: NEURONTIN Take 1 capsule by mouth two times a day for 180 days. glimepiride 4 mg tablet Commonly known as: AMARYL Take 1 tablet by mouth two times a day with meals. guaiFENesin 600 mg 12 hr tablet Commonly known as: MUCINEX Take 2 tablets by mouth two times a day as needed for cold/allergy symptoms. Lancets Test blood sugar(s) 1 times daily. Dx: Type 2 DM - Uncontrolled E11.65 Insulin: No * levothyroxine 200 mcg tablet Commonly known as: SYNTHROID Take 1 tablet by mouth once daily. Take on empty stomach. For Thyroid. * levothyroxine 88 mcg tablet Commonly known as: SYNTHROID Take 1 tablet by mouth once daily. Take 1 tablet by mouth once daily. Take on empty stomach. For Thyroid. To be taken with Levothyroxine 200 mcg tablet to make 288 mcg lisinopril 20 mg tablet Commonly known as: ZESTRIL Take 1 tablet by mouth once daily. Meclizine HCl 50 mg tablet Take 50 mg by mouth two times a day as needed (dizziness). metFORMIN 500 mg tablet Commonly known as: GLUCOPHAGE Take 2 tablets by mouth daily with breakfast. omeprazole 40 mg capsule Commonly known as: PriLOSEC (more content not included)... Normal [place] [facility] 02-06-2025 [facility] Telephone ([facility]) -- LUCAS MCCABE ([id number]) 1965 Date Time Provider Department 02/06/25 MICKY CABEZAS [facility] During your visit today, we recorded the following information about you: Micky Cabezas APRN.[facility] 02/06/2025 10:51 AM Signed Please reach out the patient in regards to his levothyroxine. He met with clinical pharmacy in the past few days where it was revealed he received 300 mcg of levothyroxine from an old prescription from his pharmacy. I would like for him to not take that dose and take the original dose that I prescribed at 288 mcg/day. This includes a 200 mcg and 88 mcg tablet. I resent to the pharmacy for him to retrieve. He has some repeat labs in a few months to recheck his TSH prior to seeing Dr. Seals. Again I would recommend that he stay consistent with taking his medications daily as he reported greater than 10 missed doses per month on average. The following approved medication requests have been transmitted electronically. Requested Prescriptions Signed Prescriptions Disp Refills levothyroxine (SYNTHROID) 200 mcg tablet 90 tablet 1 Sig: Take 1 tablet by mouth once daily. Take on empty stomach. For Thyroid. Authorizing Provider: MICKY CABEZAS levothyroxine (SYNTHROID) 88 mcg tablet 90 tablet 1 Sig: Take 1 tablet by mouth once daily. Take 1 tablet by mouth once daily. Take on empty stomach. For Thyroid. To be taken with Levothyroxine 200 mcg tablet to make 288 mcg Authorizing Provider: MICKY CABEZAS APRN.Joaquina Mueller MA 02/06/2025 11:12 AM Signed Call to pt and notified him of message below from Provider. Pt verbalized understanding. Joaquina Peña MA Allergies As of Date: 02/06/2025 Noted Allergy Reaction LATEX 01/18/2009 5 - Intolerance Comments: Headache, dizzy, trouble breathing ZOMIG (ZOLMITRIPTAN) 12/08/2004 1 - Mental Status Change Date Reviewed: 01/16/2025 Reviewed by: Rukhsana Wise LPN - Fully Assessed Reason for Visit: Orders [681] Visit Diagnosis:Acquired hypothyroidism [E03.9] Order(s):levothyroxine (SYNTHROID) 200 mcg tabletTake 1 tablet by mouth once daily. Take on empty stomach. For Thyroid.Disp: 90 tabletRfl: 1 levothyroxine (SYNTHROID) 88 mcg tabletTake 1 tablet by mouth once daily. Take 1 tablet by mouth once daily. Take on empty stomach. For Thyroid. To be taken with Levothyroxine 200 mcg tablet to make 288 mcgDisp: 90 tabletRfl: 1 Prescriptions as of 02/06/2025 - levothyroxine (SYNTHROID) 200 mcg tablet Take 1 tablet by mouth once daily. Take on empty stomach. For Thyroid. - levothyroxine (SYNTHROID) 88 mcg tablet Take 1 tablet by mouth once daily. Take 1 tablet by mouth once daily. Take on empty stomach. For Thyroid. To be taken with Levothyroxine 200 mcg tablet to make 288 mcg - atorvastatin (LIPITOR) 40 mg tablet Take 1 tablet by mouth once daily. - Blood-Glucose Sensor (FREESTYLE MANDEEP 3 PLUS SENSOR) nadeem Apply new sensor every fifteen (15) days to upper arm. - metFORMIN ER (GLUCOPHAGE XR) 500 mg 24 hr tablet Take 2 tablets by mouth two times a day. - ergocalciferol 50,000 unit capsule (VITAMIN D2, DRISDOL) Take 1 capsule by mouth two times a week for 30 days, THEN 1 capsule one time a week. - glimepiride (AMARYL) 4 mg tablet Take 1 tablet by mouth two times a day with meals. - gabapentin (NEURONTIN) 300 mg capsule Take 1 capsule by mouth two times a day for 180 days. - albuterol HFA (VENTOLIN HFA) 90 mcg/actuation inhaler INHALE 2 PUFFS ORALLY DIRECTED EVERY 4 HOURS NEEDED - flhfqzmkod-lxrqjxrx-ujtvrh mauricio (BREZTRI AEROSPHERE) 160-9-4.8 mcg/actuation HFA aerosol inhaler Inhale 2 Puffs as instructed two times a day. - DULoxetine (CYMBALTA) 60 mg capsule Take 1 capsule by mouth two times a day. - furosemide (LASIX) 40 mg tablet Take 1 tablet by mouth once daily. - lisinopril (ZESTRIL) 20 mg tablet Take 1 tablet by mouth once daily. - Meclizine HCl 50 mg tablet Take 50 mg by mouth two times a day as needed (dizziness). - omeprazole (PRILOSEC) 40 mg capsule Take 1 capsule by mouth once daily. - apixaban (ELIQUIS) 5 mg tab(s) Take 1 tablet by mouth two times a day. - guaiFENesin (MUCINEX) 600 mg 12 hr tablet Take 2 tablets by mouth two times a day as needed for cold/allergy symptoms. 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 Normal [facility]UC[facility]CC[facility]E ([id number]) 1965 M Date Time Provider Department 01/18/25 NAOMY MARSHALL [facility] During your visit today, we recorded the following information about you: Naomy Marshall [facility] 01/18/2025 9:58 AM Signed Telephoned the patient to schedule a new Primary Care pharmacy appt. Unable to leave a message.Pt. phone not accepting calls. Allergies As of Date: 01/18/2025 Noted Allergy Reaction LATEX 01/18/2009 5 - Intolerance Comments: Headache, dizzy, trouble breathing ZOMIG (ZOLMITRIPTAN) 12/08/2004 1 - Mental Status Change Date Reviewed: 01/16/2025 Reviewed by: Rukhsana Wise LPN - Fully Assessed Reason for Visit: New Primary Care Pharmacy Appt. [Other] Prescriptions as of 02/22/2025 - levothyroxine (SYNTHROID) 200 mcg tablet Take 1 tablet by mouth once daily. Take on empty stomach. For Thyroid. - levothyroxine (SYNTHROID) 88 mcg tablet Take 1 tablet by mouth once daily. Take 1 tablet by mouth once daily. Take on empty stomach. For Thyroid. To be taken with Levothyroxine 200 mcg tablet to make 288 mcg - Nebulizer Accessories kit 1 kit as needed. - ipratropium-albuterol (DUONEB) 0.5 mg-3 mg(2.5 mg base)/3 mL nebu Inhale 3 mL as instructed every 6 hours as needed for wheezing/shortness of breath. - atorvastatin (LIPITOR) 40 mg tablet Take 1 tablet by mouth once daily. - Blood-Glucose Sensor (FREESTYLE MANDEEP 3 PLUS SENSOR) nadeem Apply new sensor every fifteen (15) days to upper arm. - metFORMIN ER (GLUCOPHAGE XR) 500 mg 24 hr tablet Take 2 tablets by mouth two times a day. - ergocalciferol 50,000 unit capsule (VITAMIN D2, DRISDOL) Take 1 capsule by mouth two times a week for 30 days, THEN 1 capsule one time a week. - glimepiride (AMARYL) 4 mg tablet Take 1 tablet by mouth two times a day with meals. - gabapentin (NEURONTIN) 300 mg capsule Take 1 capsule by mouth two times a day for 180 days. - albuterol HFA (VENTOLIN HFA) 90 mcg/actuation inhaler INHALE 2 PUFFS ORALLY DIRECTED EVERY 4 HOURS NEEDED - mwwhtghupm-okzebecy-ueeugi mauricio (BREZTRI AEROSPHERE) 160-9-4.8 mcg/actuation HFA aerosol inhaler Inhale 2 Puffs as instructed two times a day. - DULoxetine (CYMBALTA) 60 mg capsule Take 1 capsule by mouth two times a day. - furosemide (LASIX) 40 mg tablet Take 1 tablet by mouth once daily. - lisinopril (ZESTRIL) 20 mg tablet Take 1 tablet by mouth once daily. - Meclizine HCl 50 mg tablet Take 50 mg by mouth two times a day as needed (dizziness). - omeprazole (PRILOSEC) 40 mg capsule Take 1 capsule by mouth once daily. - apixaban (ELIQUIS) 5 mg tab(s) Take 1 tablet by mouth two times a day. - guaiFENesin (MUCINEX) 600 mg 12 hr tablet Take 2 tablets by mouth two times a day as needed for cold/allergy symptoms. 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] MYALGIA AND MYOSITIS NOS [YTM2794] NEURALGIA/NEURITIS NOS [POV0389] Embolism and thrombosis (HCC) [I74.9] GENERAL OSTEOARTHROSIS [M15.9] ESOPHAGEAL REFLUX [K21.9] Essential hypertension [I10] SPINAL STENOSIS-LUMBAR [M48.061] 07/08/2005 PRIMARY HYPERCOAGULABLE STATE [D68.59] 08/27/2005 Tobacco Use Disorder [F17.200] 06/05/2009 DM w/o Complication Type II [E11.9] 11/07/2009 03/05/2014 Other Acquired Deformity of Toe [M20.5X9] 11/14/2009 Pain in Soft Tissues of Limb [M79.609] 11/14/2009 Dermatophytosis of Nail [B35.1] 11/14/2009 DM Neuro Manif Type II [E11.49] 11/14/2009 06/05/2014 Corns and Callosities [L84] 11/14/2009 Venous insufficiency [I87.2] 02/10/2011 Pain in joint, shoulder region [M25.519] 05/18/2011 Chronic pain [G89.29] 10/09/2013 Lumbar disc displacement without myelopathy [M5*10/09/2013 DDD (degenerative disc disease), lumbar [M51.36*10/09/2013 Asthma [J45.909] 02/02/2014 DM type 2 (diabetes mellitus, type 2) (HCC) [E1*06/05/2014 06/18/2015 BMI 45.0-49.9, adult ([facility]) [Z68.42] 06/05/2014 03/05/2023 Type 2 diabetes, controlled, with neuropathy (H*06/18/2015 Essential hypertension with goal blood pressure*12/20/2015 Acquired hypothyroidism [E03.9] 12/20/2015 Obstructive sleep apnea [G47.33] 03/12/2016 Factor V Leiden ([facility]) [D68.51] 04/23/2020 Chronic pulmonary embolism without acute cor pu*04/23/2020 Requires continuous at home supplemental oxygen*04/23/2020 Pulmonary emphysema ([facility]) [J43.9] 04/23/2020 Obesity, Class II, BMI 35-39.9 [E66.812] 12/23/2022 Family history of malignant hypertension [Z82.4*07/09/2023 Dizziness [R42] 05/02/2024 BPPV (benign paroxysmal positional vertigo), un*05/02/2024 Encounter Status:Closed by JUSTINA MARSHALL (more content not included)... Normal [place] [address]([place])D3 Jeffersonl-mCjosueon 2024 25-hydroxyvitamin D3 [Mass/Vol] 10.3 ng/mL Low 31.0-80.0 [facility] Comment on above: Order Comment: Speci men Type: BLOOD SPECIMENOrdering Facility: [facility] Address: [address] [place] [address] Performed By: #### 1 989-3 ####[facility] LABCLIA [id number] [place] [address] [place] CBC W Auto Differential pane l (Bld)on 01-16-2025 Basophils (Bld) [#/Vol] 0.09 10*3/uL Normal <0.11 [facility] Comment on above: Order Comment: Speci men Type: BLOOD SPECIMENOrdering Facility: [facility] Address: [address] [place] [address] Performed By: #### 5 7021-8 ####[facility] LABIA [id number] [place] [address] [place] Basophils/100 WBC (Bld) 0.9 % Normal [facility] Comment on above: Order Comment: Speci men Type: BLOOD SPECIMENOrdering Facility: [facility] Address: [address] [place] [address] Performed By: #### 5 7021-8 ####[facility] LABIA [id number] [place] [address] [place] Differential cell count method Nom (Bld) Auto Normal [facility] Comment on above: Order Comment: Speci men Type: BLOOD SPECIMENOrdering Facility: [facility] Address: [address] [place] [address] Performed By: #### 5 7021-8 ####[facility] LABCLIA [id number] [place] [address] [place] Eosinophils (Bld) [#/Vol] 0.21 10*3/uL Normal <0.46 [facility] Comment on above: Order Comment: Speci men Type: BLOOD SPECIMENOrdering Facility: [facility] Address: [address] [place] [address] Performed By: #### 5 7021-8 ####[facility] LABCLIA [id number] [place] [id number] [place] Eosinophils/100 WBC (Bld) 2.2 % Normal [facility] Comment on above: Order Comment: Speci men Type: BLOOD SPECIMENOrdering Facility: [facility] Address: [address] [place] [address] Performed By: #### 5 7021-8 ####[facility] LABIA [id number] [place] [address] [place] Erythrocyte distribution width (RBC) [Ratio] 13.7 % Normal 11.5-15.0 [facility] Comment on above: Order Comment: Speci men Type: BLOOD SPECIMENOrdering Facility: [facility] Address: [address] [place] [address] Performed By: #### 5 7021-8 ####[facility] LABIA [id number] [place] [address] [place] Hematocrit (Bld) [Volume fraction] 51.4 % High 39.0-51.0 [facility] Comment on above: Order Comment: Speci men Type: BLOOD SPECIMENOrdering Facility: [facility] Address: [address] [place] [address] Performed By: #### 5 7021-8 ####[facility] LABIA [id number] [place] [id number] [place] Hemoglobin (Bld) [Mass/Vol] 16.7 g/dL Normal 13.0-17.0 [facility] Comment on above: Order Comment: Speci men Type: BLOOD SPECIMENOrdering Facility: [facility] Address: [address] [place] [address] Performed By: #### 5 7021-8 ####[facility] LABCLIA [id number] [place] [address] [place] Immature granulocytes (Bld) [#/Vol] 0.03 10*3/uL Normal <0.10 [facility] Comment on above: Order Comment: Speci men Type: BLOOD SPECIMENOrdering Facility: [facility] Address: [address] [place] [address] Performed By: #### 5 7021-8 ####[facility] LABCLIA [id number] [place] [address] [place] Immature granulocytes/100 WBC (Bld) 0.3 % Normal [facility] Comment on above: Order Comment: Speci men Type: BLOOD SPECIMENOrdering Facility: [facility] Address: [address] [place] [address] Performed By: #### 5 7021-8 ####[facility] LABCLIA [id number] [place] [address] [place] Lymphocytes (Bld) [#/Vol] 2.21 10*3/uL Normal 1.00-4.00 [facility] Comment on above: Order Comment: Speci men Type: BLOOD SPECIMENOrdering Facility: [facility] Address: [address] [place] [address] Performed By: #### 5 7021-8 ####[facility] LABCLIA [id number] [place] [address] [place] Lymphocytes/100 WBC (Bld) 23.2 % Normal [facility] Comment on above: Order Comment: Speci men Type: BLOOD SPECIMENOrdering Facility: [facility] Address: [address] [place] [address] Performed By: #### 5 7021-8 ####[facility] LABCLIA [id number] [place] [address] [place] MCH (RBC) [Entitic mass] 29.2 pg Normal 26.0-34.0 [facility] Comment on above: Order Comment: Speci men Type: BLOOD SPECIMENOrdering Facility: [facility] Address: [address] [place] [address] Performed By: #### 5 7021-8 ####[facility] LABIA [id number] [place] [address] [place] MCHC (RBC) [Mass/Vol] 32.5 g/dL Normal 30.5-36.0 [facility] Comment on above: Order Comment: Speci men Type: BLOOD SPECIMENOrdering Facility: [facility] Address: [address] [place] [address] Performed By: #### 5 7021-8 ####[facility] LABIA [id number] [place] [address] [place] MCV (RBC) [Entitic vol] 90.0 fL Normal 80.0-100.0 [facility] Comment on above: Order Comment: Speci men Type: BLOOD SPECIMENOrdering Facility: [facility] Address: [address] [place] [address] Performed By: #### 5 7021-8 ####[facility] LABIA [id number] [place] [address] [place] Monocytes (Bld) [#/Vol] 0.87 10*3/uL High <0.87 [facility] Comment on above: Order Comment: Speci men Type: BLOOD SPECIMENOrdering Facility: [facility] Address: [address] [place] [address] Performed By: #### 5 7021-8 ####[facility] LABIA [id number] [place] [address] [place] Monocytes/100 WBC (Bld) 9.1 % Normal [facility] Comment on above: Order Comment: Speci men Type: BLOOD SPECIMENOrdering Facility: [facility] Address: [address] [place] [address] Performed By: #### 5 7021-8 ####[facility] LABCLIA [id number] [facility] [address], [place] [address] [place] Neutrophils (Bld) [#/Vol] 6.10 10*3/uL Normal 1.45-7.50 [facility] Comment on above: Order Comment: Speci men Type: BLOOD SPECIMENOrdering Facility: [facility] Address: [address] [place] [address] Performed By: #### 5 7021-8 ####[facility] LABCLIA [id number] [facility] [address], [place] [address] [place] Neutrophils/100 WBC (Bld) 64.3 % Normal [facility] Comment on above: Order Comment: Speci men Type: BLOOD SPECIMENOrdering Facility: [facility] Address: [address] [place] [address] Performed By: #### 5 7021-8 ####[facility] LABCLIA [id number] [facility] [address], [place] [address] [place] Nucleated RBC (Bld) [#/Vol] 10*3/uL Normal <0.01 [facility] Comment on above: Order Comment: Speci men Type: BLOOD SPECIMENOrdering Facility: [facility] Address: [address] [place] [address] Performed By: #### 5 7021-8 ####[facility] LABCLIA [id number] [facility] [place] [address] [place] Nucleated RBC/100 WBC (Bld) [Ratio] 0.0 /100 WBC Normal [facility] Comment on above: Order Comment: Speci men Type: BLOOD SPECIMENOrdering Facility: [facility] Address: [address] [place] [address] Performed By: #### 5 7021-8 ####[facility] LABCLIA [id number] [facility] [address], [facility] [place] Platelet mean volume (Bld) [Entitic vol] 10.8 fL Normal 9.0-12.7 [facility] Comment on above: Order Comment: Speci men Type: BLOOD SPECIMENOrdering Facility: [facility] Address: [address] [place] [address] Performed By: #### 5 7021-8 ####[facility] LABIA [id number] [place] [address] [place] Platelets (Bld) [#/Vol] 303 10*3/uL Normal 150-400 [facility] Comment on above: Order Comment: Speci men Type: BLOOD SPECIMENOrdering Facility: [facility] Address: [address] [place] [address] Performed By: #### 5 7021-8 ####[facility] LABIA [id number] [place] [address] [place] RBC (Bld) [#/Vol] 5.71 10*6/uL Normal 4.20-6.00 [facility] Comment on above: Order Comment: Speci men Type: BLOOD SPECIMENOrdering Facility: [facility] Address: [address] [place] [address] Performed By: #### 5 7021-8 ####[facility] LABIA [id number] [place] [address] [place] WBC (Bld) [#/Vol] 9.51 10*3/uL Normal 3.70-11.00 [facility] Comment on above: Order Comment: Speci men Type: BLOOD SPECIMENOrdering Facility: [facility] Address: [address] [place] [address] Performed By: #### 5 7021-8 ####[facility] LABIA [id number] [place] [id number] [place] CNOVon 01-16-2025 CNOV Office Visit (FAMPWS ) -- LUCAS MCCABE ([id number]) 1965 M Date Time Provider Department 01/16/25 1:00 PM MICKY CABEZAS During your visit today, we recorded the following information about you: Pulse Respiration Blood pressure Weight 80/minute 20/minute 140/92 146.1 kg Micky Cabezas APRN.DIRECTOR HAIR 01/16/2025 12:06 PM Signed Chief Complaint Patient presents with: Follow Up: 3 mo HPI Lucas Mccabe is a 59 year old male who presents here today for above reason. Lucas is a 59-year-old male with a history of COPD, emphysema, type 2 diabetes mellitus, hypercholesterolemia, and neuropathy, presenting for follow-up. Lucas reports persistent fatigue, stating he feels tired all the time. He is currently on levothyroxine, but it is unclear if the dosage is appropriate. He also mentions a history of a blood clot and is on Eliquis. He is taking metformin, 2 tablets daily, and glimepiride, 1 tablet daily, for diabetes management. He checks his blood glucose levels at home daily, but his glucometer battery is , and he is unsure of his recent readings. He denies any episodes of hypoglycemia characterized by shakiness but does report dizziness. Lucas is on Lipitor for hypercholesterolemia and gabapentin 300 mg nightly for neuropathy. He reports that the current dose of gabapentin is somewhat effective but notes that the neuropathy is extending past his hips and occasionally causes a burning sensation. He has not tried taking gabapentin twice a day but is open to adjusting the dosage. He is following up with a power ballast machine operator for COPD and emphysema management. Past medical history, appointments, medications, allergies reviewed. EXAM: BP 140/92 (BP Position: Sitting) Pulse 80 Resp 20 Wt (!) 146.1 kg (322 lb) SpO2 94% BMI 43.67 kg/m? General Appearance: Well appearing, alert, in no acute distress, well-hydrated, well nourished.. Lungs: Lungs clear to auscultation. No wheezing, rhonchi, rales.. Heart: RRR without murmur, gallop, or rubs. No ectopy. Assessment and Plan 1. Chronic obstructive pulmonary disease, unspecified COPD type (HCC) (J44.9) Centrilobular emphysema (HCC) (J43.2) Follow-up with power ballast machine operator for COPD and emphysema management. - Continue current management and follow-up with power ballast machine operator. 2. Type 2 diabetes, controlled, with neuropathy (HCC) (E11.40) Currently on Metformin 2 tablets daily and Glimepiride 1 tablet daily. Last HbA1c in February was 8.6%. Neuropathy symptoms include burning sensation, managed with Gabapentin 300 mg nightly. - Ordered HbA1c, iron studies, vitamin D, and B12 levels. - Increase Gabapentin to 300 mg BID; if intolerable, consider reducing morning dose to 100 mg. - Educated on dietary modifications to reduce carbohydrate intake; provided educational booklet. - Advised to replace battery in glucometer to resume daily blood glucose monitoring. - Follow-up in 3 months to reassess glycemic control and neuropathy symptoms. 3. Gastroesophageal reflux disease, unspecified whether esophagitis present (K21.9) 4. Acquired hypothyroidism (E03.9) Potential contributor to fatigue. - Ordered TSH level to assess current thyroid function. 5. 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 - Continue Eliquis as prescribed. 6. Essential hypertension (I10) - Stable on Lisinopril 20 mg 7. Hyperlipidemia, mixed (E78.2) On Lipitor for lipid management. - Continue Lipitor as prescribed. 8. BPPV (benign paroxysmal positional vertigo), unspecified laterality (H81.10) History of BPPV, recent episode of dizziness possibly related to low blood sugar. - Monitor for recurrent episodes; ensure adequate hydration and nutrition. 9. Chronic pain syndrome (G89.4) - Increase Gabapentin 10. DDD (degenerative disc disease), lumbar (M51.369) - Increase Gabapentin Micky Cabezas APRN.DIRECTOR HAIR RTO in 3 months, sooner if needed. This note was partly generated using [employer] voice recognition dictation and may contain some misspelled or inaccurate words missed on review. Recording using KAR[employer] software for draft documentation of the visit was discussed with the patient/authorized rental sales representative; all questions welcomed and answered. Patient/authorized rental sales representative agreed to proceed Allergies As of Date: 01/16/2025 Noted Allergy Reaction LATEX 01/18/2009 5 - Intolerance Comments: Headache, dizzy, trouble breathing ZOMIG (ZOLMITRIPTAN) 12/08/2004 1 - Mental Status Change Date Reviewed: 01/16/2025 Reviewed by: Rukhsana Wise LPN - Fully Assessed Reason for Visit: Follow Up [171] Cmt: 3 mo Primary Visit Diagnosis:Chronic obstructive pulmonary disease, unspecified COPD type ([facility]) [J44.9] Other Visit Diagnoses:Type 2 diabetes, controlled, with neuropathy ([facility]) [E11.40] Gastroesophageal reflux disease, unspe (more content not included)... Normal [facility] Comprehensive metabolic 2000 panelon 01-16-2025 Albumin [Mass/Vol] 4.1 g/dL Normal 3.9-4.9 [facility] Comment on above: Order Comment: Speci men Type: BLOOD SPECIMENOrdering Facility: [facility] Address: [address] [place] [address] Performed By: #### 5 0190-8, 55773-7, 3024-7, 72649-3 ####[facility] [id number] [place] [address] [place] ALP [Catalytic activity/Vol] 107 U/L Normal 38-113 [facility] Comment on above: Order Comment: Speci men Type: BLOOD SPECIMENOrdering Facility: [facility] Address: [address] [place] [address] Performed By: #### 5 0190-8, 82537-2, 302-7, 25697-9 ####[facility] LABIA [id number] [place] [address] [place] ALT [Catalytic activity/Vol] 15 U/L Normal 10-54 [facility] Comment on above: Order Comment: Speci men Type: BLOOD SPECIMENOrdering Facility: [facility] Address: [address] [place] [address] Performed By: #### 5 0190-8, 19355-7, 3024-7, 11052-2 ####[facility] LABCLIA [id number] [address] [address] [place] Anion gap [Moles/Vol] 14 mmol/L Normal 8-15 [facility] Comment on above: Order Comment: Speci men Type: BLOOD SPECIMENOrdering Facility: [facility] Address: [address] [place] [address] Performed By: #### 5 0190-8, 76089-5, 3023-7, 86892-5 ####[facility] LABCLIA [id number] [place] [address] [place] AST [Catalytic activity/Vol] 21 U/L Normal 14-40 [facility] Comment on above: Order Comment: Speci men Type: BLOOD SPECIMENOrdering Facility: [facility] Address: [address] [place] [address] Result Comment: Resu lts may be falsely increased due to interference from hemolysis. Suggest reorder as clinically indicated. Performed By: #### 5 0190-8, 06825-7, 3024-7, 36822-2 ####[facility] LABCLIA [id number] [place] [address] [place] Bilirubin [Mass/Vol] 0.6 mg/dL Normal 0.2-1.3 [facility] Comment on above: Order Comment: Speci men Type: BLOOD SPECIMENOrdering Facility: [facility] Address: [address] [place] [address] Performed By: #### 5 0190-8, 85730-0, 3024-7, 90641-6 ####[facility] LABIA [id number] [place] [id number] [place] Calcium [Mass/Vol] 9.8 mg/dL Normal 8.5-10.2 [facility] Comment on above: Order Comment: Speci men Type: BLOOD SPECIMENOrdering Facility: [facility] Address: [address] [place] [address] Performed By: #### 5 0190-8, 91286-0, 3024-7, 82221-2 ####[facility] LABCLIA [id number] [place] [address] [place] Chloride [Moles/Vol] 96 mmol/L Low 98-107 [facility] Comment on above: Order Comment: Speci men Type: BLOOD SPECIMENOrdering Facility: [facility] Address: [address] [place] [address] Performed By: #### 5 0190-8, 57750-2, 3024-7, 19797-2 ####[facility] LABCLIA [id number] [place] [address] [place] CO2 [Moles/Vol] 26 mmol/L Normal 22-30 [facility] Comment on above: Order Comment: Speci men Type: BLOOD SPECIMENOrdering Facility: [facility] Address: [address] [place] [address] Performed By: #### 5 0190-8, 06087-0, 3024-7, 72915-5 ####[facility] LABCLIA [id number] [place] [address] [place] Creatinine [Mass/Vol] 0.80 mg/dL Normal 0.73-1.22 [facility] Comment on above: Order Comment: Speci men Type: BLOOD SPECIMENOrdering Facility: [facility] Address: [address] [place] [address] Performed By: #### 5 0190-8, 12444-7, 3024-7, 82669-1 ####[facility] LABCLIA [id number] [place] [address] [place] Creatinine and Glomerular filtration rate.predicted panel (S/P/Bld) 101 mL/min/1.73m??? Normal >=60 [facility] Comment on above: Order Comment: Speci men Type: BLOOD SPECIMENOrdering Facility: [facility] Address: [address] [place] [address] Result Comment: Josefina mated Glomerular Filtration Rate (eGFR) is calculated using the 2020 CKD-EPI creatinine equation. This equation utilizes serum creatinine, sex, and age as parameters. The creatinine assay has traceable calibration to isotope dilution-mass spectrometry. Refer to KDIGO guidelines for clinical interpretation. In patients with unstable renal function, e.g. those with acute kidney injury, the eGFR may not accurately reflect actual GFR. Performed By: #### 5 0190-8, 81753-4, 3023-7, 83847-1 ####[facility] LABIA [id number] [place] [address] [place] Glucose [Mass/Vol] 162 mg/dL High 74-99 [facility] Comment on above: Order Comment: Speci men Type: BLOOD SPECIMENOrdering Facility: [facility] Address: [address] [place] [address] Result Comment: The [place] Diabetes Association (ADA) provides guidance for cutoff values for fasting glucose and random glucose. The ADA defines fasting as no caloric intake for at least 8 hours. Fasting plasma glucose results between 100 to 125 mg/dL indicate increased risk for diabetes (prediabetes). Fasting plasma glucose results greater than or equal to 126 mg/dL meet the criteria for diagnosis of diabetes. In the absence of unequivocal hyperglycemia, results should be confirmed by repeat testing. In a patient with classic symptoms of hyperglycemia or hyperglycemic crisis, random plasma glucose results greater than or equal to 200 mg/dL meet the criteria for diagnosis of diabetes. Reference: Standards of Medical Care in Diabetes 2016, [place] Diabetes Association. Diabetes Care. 2016.39(Suppl 1). Performed By: #### 5 0190-8, 05102-8, 3023-7, 06855-7 ####[facility] LABIA [id number] [place] [id number] [place] Potassium [Moles/Vol] 4.3 mmol/L Normal 3.7-5.1 [facility] Comment on above: Order Comment: Speci men Type: BLOOD SPECIMENOrdering Facility: [facility] Address: [address] [place] [address] Performed By: #### 5 0190-8, 49959-8, 3024-7, 41904-5 ####[facility] LABIA [id number] [place] [id number] [place] Protein [Mass/Vol] 7.4 g/dL Normal 6.3-8.0 [facility] Comment on above: Order Comment: Speci men Type: BLOOD SPECIMENOrdering Facility: [facility] Address: [address] [place] [address] Performed By: #### 5 0190-8, 62317-1, 3024-7, 45238-5 ####[facility] [id number] [place] [address] [place] Sodium [Moles/Vol] 136 mmol/L Normal 136-144 [facility] Comment on above: Order Comment: Speci men Type: BLOOD SPECIMENOrdering Facility: [facility] Address: [address] [place] [address] Performed By: #### 5 0190-8, 42237-1, 3024-7, 95892-0 ####[facility] [id number] [place] [id number] [place] Urea nitrogen [Mass/Vol] 13 mg/dL Normal 9-24 [facility] Comment on above: Order Comment: Speci men Type: BLOOD SPECIMENOrdering Facility: [facility] Address: [address] [place], [place] [address] Performed By: #### 5 0190-8, 79999-8, 3024-7, 57629-4 ####[facility] [id number] [place] [id number] [place] Ferritin SerPl-mCncon 2024 Ferritin [Mass/Vol] 180.0 ng/mL Normal 30.3-565.7 [facility] Comment on above: Order Comment: Speci men Type: BLOOD SPECIMENOrdering Facility: [facility] Address: [address] [place] [address] Performed By: #### 2 276-4, 2132-9, 3016-3 ####[facility] LABCLIA [id number] [address] [place] HbA1c (Bld)on 01-16-2025 Average glucose Estimated from glycated hemoglobin (Bld) [Mass/Vol] 212 mg/dL Normal [facility] Comment on above: Order Comment: Hilary men Type: BLOOD SPECIMENOrdering Facility: [facility] Address: [address] [place] [address] Result Comment: eAG: (Estimated average glucose) is a calculated value from HgbA1c and is rental sales representative of the average blood glucose level in the last 2-3 month period. Performed By: #### 5 5454-3 ####[facility] LABIA [id number] [place] [address] [place] HbA1c (Bld) [Mass fraction] 9.0 % High 4.3-5.6 [facility] Comment on above: Order Comment: Hilary bella Type: BLOOD SPECIMENOrdering Facility: [facility] Address: [address] [place] [address] Result Comment: Navneet ican Diabetes Association guidelines indicate that patients with HgbA1c in the range 5.7-6.4% are at increased risk for development of diabetes, and intervention by lifestyle modification may be beneficial. HgbA1c greater or equal to 6.5% is considered diagnostic of diabetes. Performed By: #### 5 5454-3 ####[facility] LABCLIA [id number] [place] [id number] [place] Iron and Iron binding capaci ty panelon 01-16-2025 Iron [Mass/Vol] 108 ug/dL Normal 41-186 [facility] Comment on above: Order Comment: Hilary jena Type: BLOOD SPECIMENOrdering Facility: [facility] Address: [address] [place] [address] Performed By: #### 5 0190-8, 31956-3, 3024-7, 11235-4 ####[facility] LABCLIA [id number] [address] [address] [place] Iron binding capacity [Mass/Vol] 342 ug/dL Normal 232-386 [facility] Comment on above: Order Comment: Speci men Type: BLOOD SPECIMENOrdering Facility: [facility] Address: [address] [place] [address] Performed By: #### 5 0190-8, 26741-8, 302-7, 89536-9 ####[facility] LABIA [id number] [place] [address] [place] Iron/TIBC [Molar ratio] 31.6 % Normal 15.0-57.0 [facility] Comment on above: Order Comment: Speci men Type: BLOOD SPECIMENOrdering Facility: [facility] Address: [address] [place] [address] Performed By: #### 5 0190-8, 06672-6, 3023-7, 00586-4 ####[facility] LABIA [id number] [place] [address] [place] Lipid 1996 panelon 5 Cholesterol [Mass/Vol] 202 mg/dL High <200 [facility] Comment on above: Order Comment: Speci men Type: BLOOD SPECIMENOrdering Facility: [facility] Address: [address] [place] [address] Result Comment: <200 mg/dL, Desirable 200-239 mg/dL, Borderline high >239 mg/dL, High Performed By: #### 5 0190-8, 58949-3, 302-7, 01796-6 ####[facility] LABIA [id number] [address] [address] [place] Cholesterol in HDL [Mass/Vol] 35 mg/dL Low >39 [facility] Comment on above: Order Comment: Speci men Type: BLOOD SPECIMENOrdering Facility: [facility] Address: [address] [place] [address] Result Comment: 40-5 9 mg/dL, Acceptable >59 mg/dL, High: Negative risk factor for coronary heart disease <40 mg/dL, Low: Positive risk factor for coronary heart disease Performed By: #### 5 0190-8, 79380-7, 3023-7, 21388-0 ####[facility] LABCLIA [id number] [address] OF [facility] Cholesterol in LDL [Mass/Vol] 132 mg/dL High <100 [facility] Comment on above: Order Comment: Speci men Type: BLOOD SPECIMENOrdering Facility: [facility] Address: [address] [place] [address] Result Comment: <100 mg/dL, Optimal 100-129 mg/dL, Near optimal/above optimal 130-159 mg/dL, Borderline high 160-189 mg/dL, High >189 mg/dL, Very high Secondary prevention optimal LDL Cholesterol levels are recommended to be <70 mg/dL LDL cholesterol is calculated using the Auguste-NIH equation. Performed By: #### 5 0190-8, 51482-9, 3024-02, 08848-4 ####[facility] LABIA [id number] [address] [place] Cholesterol in LDL/Cholesterol in HDL [Mass ratio] 3.77 {ratio} High <2.54 [facility] Comment on above: Order Comment: Speci men Type: BLOOD SPECIMENOrdering Facility: [facility] Address: [address] [place] [address] Result Comment: Refmarilee alexisce: 1. National Cholesterol Education Program ATP III Guideline At-A-Glance Quick Desk Reference: National Heart, Lung, and Blood [place]. National Institutes of Health. 2001: NIH Publication No. 01-3305. 2. An International Atherosclerosis Society position paper: global recommendations for the management of dyslipidemia: executive summary, Atherosclerosis. 2014: 232(2):410-413. Performed By: #### 5 0190-8, 86193-7, 3023-7, ####[facility] LABCLIA [id number] [facility] [address] [address] [place] Cholesterol in VLDL [Mass/Vol] 35 mg/dL High <30 [facility] Comment on above: Order Comment: Speci men Type: BLOOD SPECIMENOrdering Facility: [facility] Address: [address] [place] [address] Performed By: #### 5 0190-8, 65012-7, 3024-02, 67531-8 ####[facility] LABCLIA [id number] [address] [address] [place] Cholesterol non HDL [Mass/Vol] 167 mg/dL High <130 [facility] Comment on above: Order Comment: Speci men Type: BLOOD SPECIMENOrdering Facility: [facility] Address: [address] [place] [address] Result Comment: <130 mg/dL, Optimal 130-159 mg/dL, Near optimal/above optimal 160-189 mg/dL, Borderline high 190-219 mg/dL, High >219 mg/dL, Very high Secondary prevention optimal non HDL Cholesterol levels are recommended to be <100 mg/dL Performed By: #### 5 0190-8, 58965-9, 3024-02, ####[facility] LABCLIA [id number] [address] [address] [place] Cholesterol.total/Chol esterol in HDL [Mass ratio] 5.77 {ratio} High <5.10 [facility] Comment on above: Order Comment: Speci men Type: BLOOD SPECIMENOrdering Facility: [facility] Address: [address] [place] [address] Performed By: #### 5 0190-8, 45731-5, 3024-02, ####[facility] LABCLIA [id number] [address] [address] [place] FASTING TIME 12 hrs Normal [facility] Comment on above: Order Comment: Speci men Type: BLOOD SPECIMENOrdering Facility: [facility] Address: [address] [place] [address] Performed By: #### 5 0190-8, 51623-7, 3027, 47390-6 ####[facility] LABCLIA [id number] [place] [address] [place] Triglyceride [Mass/Vol] 195 mg/dL High <150 [facility] Comment on above: Order Comment: Speci men Type: BLOOD SPECIMENOrdering Facility: [facility] Address: [address] [place] [address] Result Comment: <150 mg/dL, Normal 150-199 mg/dL, Borderline high 200-499 mg/dL, High >499 mg/dL, Very high Performed By: #### 5 0190-8, 19990-8, 7, 76961-7 ####[facility] LABCLIA [id number] [place] [address] [place] PSA/PROSTATE SPECIFIC ANTIGE N SCREENINGon 01-16-2025 Prostate specific Ag [Mass/Vol] 0.29 ng/mL Normal <2.60 [facility] Comment on above: Order Comment: Speci men Type: BLOOD SPECIMENOrdering Facility: [facility] Address: [address] [place] [address] Result Comment: Tota l PSA test methodology used is the Electrochemiluminescence Immunoassay by [employer]. Total PSA values by differing methodologies cannot be interchanged. Performed By: #### P SAS1 ####[facility] LABCLIA [id number] [place] [address] [place] T4 Free SerPl-mCncon 025 Free T4 [Mass/Vol] 1.2 ng/dL Normal 0.9-1.7 [facility] Comment on above: Order Comment: Speci men Type: BLOOD SPECIMENOrdering Facility: [facility] Address: [address] [place] [address] Performed By: #### 5 0190-8, 53173-8, 3023-7, 31936-0 ####[facility] LABCLIA [id number] [place] [id number] [facility] [place] TSH SerPl-aCncon 01-16-2025 TSH Qn 18.500 m[IU]/L High 0.270-4.200 [facility] Comment on above: Order Comment: Speci men Type: BLOOD SPECIMENOrdering Facility: [facility] Address: [address] [place] [address] Performed By: #### 2 276-4, 2131-9, 6-3 ####[facility] LABIA [id number] [address] [place] Vit B12 SerPl-mCncon 025 Cobalamin (Vitamin B12) [Mass/Vol] 482 pg/mL Normal 232-1245 [facility] Comment on above: Order Comment: Speci men Type: BLOOD SPECIMENOrdering Facility: [facility] Address: [address] [place] [address] Performed By: #### 2 276-4, 2131-9, 6-3 ####[facility] [id number] [address] Urine Cultureon 12-08-2024 URC Proteus mirabilis Kila Count 80,000-100,000 Proteus mirabilis: REACTION Ampicillin Islt RUTH >=32 Ampicillin+Sulbac Islt RUTH <=2 S Cefepime Islt RUTH <=0.12 S cefTRIAXone Islt RUTH <=0.25 S Ciprofloxacin Islt RUTH <=0.06 S Gentamicin Islt RUTH <=1 S levoFLOXacin Islt RUTH <=0.12 S Meropenem Islt RUTH <=0.25 S Nitrofurantoin Islt RUTH 128 R Pip+Tazo Islt RUTH <=4 S TMP SMX Islt RUTH <=20 S Normal [facility] Comment on above: Performed By: #### L 500.2500, L100.0100, L501.4021 #### [facility] [address] [place], [address] L499.0043on 12-07-2024 Trop T High Sen Normal <=22 [facility] Comment on above: Result Comment: FIDELIA ENT DISCHARGED Performed By: #### L 499.0043 #### [facility] [address] [place], [address] 12 Lead EKGon 12-06-2024 12 Lead EKG [facility] [address] [place] [address] 12 Lead EKG 12/06/24 2141 MR#: [id number] Acct: [id number] Name: LUCAS MCCABE Rep #: [id number] : 1965 59 From: Abdirizak Lauren MD Attending Dr: Status: DEP ER Ordering Dr: Gilberto Lorenzo DO Date: 12/06/24 Location: ED Sex: M C Admitted: Test Reason : DYSRHYTHMIA Blood Pressure : */* mmHG Vent. Rate : 89 BPM Atrial Rate : 89 BPM P-R Int : 166 ms QRS Dur : 102 ms QT Int : 368 ms P-R-T Axes : 61 85 5 degrees QTcB Int : 447 ms Normal sinus rhythm Nonspecific ST and T wave abnormality Abnormal ECG Confirmed by Abdirizak Lauren ([id number]), book or script editor ANH BLACKMAN ([id number]) on 12/08/2024 7:00:39 AM Referred By: Gilberto Lorenzo Confirmed By: Abdirizak Lauren 12/08/24 0700 Date Abdirizak Lauren MD CC: Dr. Gilberto Lorenzo DO; Dr. Kaushik Seals MD Signed Normal [facility] Absolute neutrophil countOrd ered By: Gilberto Lorenzo on 12-06-2024 Neutrophils (Bld) [#/Vol] 9.6 10*3/uL High 2.0-7.7 [facility] Alcohol, Blood (Medical)-Ser umon 12-06-2024 SERUM ETOH < 10.1 Normal <=10.0 [facility] Comment on above: Result Comment: This test is for medical purposes only. The legal definition of intoxication varies according to local law. Performed By: #### L 501.9100, L505.5000 #### [facility] [address] [place], [place], [address] Amphetamines Screen method > 1000 ng/mL Ql (U)Ordered By: Gilberto Lorenzo on 12-06-2024 Amphetamines Ql (U) Negative <1000 ng/mL [facility] Urine Barbiturates Screen Negative < 200 ng/mL [facility] Anion gap in Serum or Plasma Ordered By: Gilberto Lorenzo on 12-06-2024 Anion gap [Moles/Vol] 12 mmol/L 5-15 [facility] Arterial patency Wrist arter y --pre arterial punctureOrdered By: Gilberto Lorenzo on 12-06-2024 Nilsa Test Positive [facility] BUN/creatinine ratioOrdered By: Gilberto Lorenzo on 12-06-2024 Urea nitrogen/Creatinine [Mass ratio] 18.1 mg/mg 10-20 [facility] Base excess Calc (BldV) [Mol es/Vol]Ordered By: Gilberto Lorenzo on 12-06-2024 Blood Gas Base Excess 5 mmol/L High -2-2 [facility] Basophil percentageOrdered B y: Gilberto Lorenzo on 12-06-2024 Basophils/100 WBC (Bld) 0.9 % 0-1 [facility] Bilirubin Test strip Ql (U)O rdered By: Gilberto Lorenzo on 12-06-2024 Bilirubin Ql (U) Negative Negative [facility] Bilirubin, totalOrdered By: Gilberto Lorenzo on 12-06-2024 Bilirubin [Mass/Vol] 0.30 mg/dL 0.00-1.30 [facility] Blood Gases by CPSon 025 NILSA TEST Positive Normal [facility] Comment on above: Performed By: #### L 9000.0800 #### [facility] [address] [place], [place], [address] Base excess Calc (Bld) [Moles/Vol] 5 mmol/L High -2 to +2 [facility] Comment on above: Performed By: #### L 9000.0800 #### [facility] [address] [place], [address] Blood Gas Type ART Normal [facility] Comment on above: Performed By: #### L 9000.0800 #### [facility] [address] [place], [address] CO2 [Moles/Vol] 32 mmol/L Normal [facility] Comment on above: Performed By: #### L 9000.0800 #### [facility] [address] [place], [address] FI02 21.0 [facility] Comment on above: Performed By: #### L 9000.0800 #### [facility] [address] [place], [address] HCO3 (Bld) [Moles/Vol] 30.0 mmol/L High 22-26 [facility] Comment on above: Performed By: #### L 9000.0800 #### [facility] [address] [place], [address] Mode Not entered [facility] Comment on above: Performed By: #### L 9000.0800 #### [facility] [address] [place], [address] O2 Delivery Dev Room Air [facility] Comment on above: Performed By: #### L 9000.0800 #### [facility] [address] [place], [address] pCO2 50.6 mmHg High 35-45 [facility] Comment on above: Performed By: #### L 9000.0800 #### [facility] [address] [place], [address] pH (Bld) 7.38 [pH] Normal 7.35-7.45 [facility] Comment on above: Performed By: #### L 9000.0800 #### [facility] [address] [place], [address] PO2 61 mmHG Low 75-100 [facility] Comment on above: Performed By: #### L 9000.0800 #### [facility] [address] [place], [address] SITE L Radial Normal [facility] Comment on above: Performed By: #### L 9000.0800 #### [facility] [address] [place], [address] SO2 90 Low 95-99 [facility] Comment on above: Performed By: #### L 9000.0800 #### [facility] [address] [place], [address] Blood bicarbonate measuremen tOrdered By: Gilberto Lorenzo on 12-06-2024 Blood Gas Bicarbonate Actual 30.0 mmol/L High 22-26 [facility] Brain/Head without Contrasto n 12-06-2024 Brain/Head without Contrast [facility] Imaging Services [address] [place] [address] Brain/Head without Contrast MR#: [id number] Acct: [id number] Name: LUCAS MCCABE Jr. Rep #: [id number] : 1965 M 59 From: Armin Brooks MD PCP: Dr. Kaushik Seals MD Status: PRE ER Study: Brain/Head without Contrast Date of Exam: 11/21 02/14 Exam# [id number] Ordering Dr: Gilberto Lorenzo DO PROCEDURE: BRAIN/HEAD WITHOUT CONTRAST 12/06/2024 REASON FOR EXAM: CONFUSION TECHNIQUE: Head CT without intravenous contrast. Coronal and Sagittal reconstruction series were provided. One or more dose reduction techniques were used (e.g., Automated exposure control, adjustment of the mA and/or kV according to patient size, use of iterative reconstruction technique. FINDINGS: Brain: Normal CSF Spaces: Normal Sinuses/Mastoids: Mucosal thickening of the left maxillary sinus consistent with chronic sinusitis. Bones: Unremarkable. CT/Brain/Head without Contrast IMPRESSION: SINUS DISEASE. OTHERWISE UNREMARKABLE NONCONTRAST HEAD CT. Reading Location: [id number] CC: Dr. Gilberto Lorenzo DO; Dr. Kaushik Seals MD Talent Engineer: Signed Normal [facility] CBC W/Diff, Automatedon 04- Absolute Lymph 1.75 X10 3/uL Normal 0.83-4.51 [facility] Comment on above: Performed By: #### L 499.0042 #### [facility] [address] [place], [address] Absolute Neut 9.6 X10 3/uL High 2.0-7.7 [facility] Comment on above: Performed By: #### L 499.0042 #### [facility] [address] [place], [address] Basophils/100 WBC (Bld) 0.9 % Normal 0-1 [facility] Comment on above: Performed By: #### L 499.0042 #### [facility] [address] [place], [address] Eosinophils/100 WBC (Bld) 1.5 % Normal 0-5 [facility] Comment on above: Performed By: #### L 499.0042 #### [facility] [address] [place], [address] Erythrocyte distribution width (RBC) [Ratio] 14.0 % Normal 11.6-14.6 [facility] Comment on above: Performed By: #### L 499.0042 #### [facility] [address] [place], [address] Hematocrit (Bld) [Volume fraction] 49.2 % Normal 40-54 [facility] Comment on above: Performed By: #### L 499.0042 #### [facility] [address] [place], [address] Hemoglobin (Bld) [Mass/Vol] 16.4 g/dL Normal 13.0-16.5 [facility] Comment on above: Performed By: #### L 499.0042 #### [facility] [address] [place], [address] IG% 0.400 Normal 0.0-0.9 [facility] Comment on above: Result Comment: IG% - Immature Granulocytes (promyelocytes, myelocytes and metamyelocytes) > 1% indicates that a LEFT SHIFT is Present. Performed By: #### L 499.0042 #### [facility] [address] [place], [address] Lymphocytes/100 WBC (Bld) 14.0 % Low 19-41 [facility] Comment on above: Performed By: #### L 499.0042 #### [facility] [address] [place], [address] MCH (RBC) [Entitic mass] 29.8 pg Normal 27.0-32.0 [facility] Comment on above: Performed By: #### L 499.0042 #### [facility] [address] [place], [address] MCHC (RBC) [Mass/Vol] 33.3 g/dL Normal 32-36 [facility] Comment on above: Performed By: #### L 499.0042 #### [facility] [address] [place], [address] MCV (RBC) [Entitic vol] 89.5 fL Normal 80-94 [facility] Comment on above: Performed By: #### L 499.0042 #### [facility] [address] [place], [address] Monocytes/100 WBC (Bld) 6.9 % Normal 0-10 [facility] Comment on above: Performed By: #### L 499.0042 #### [facility] [address] [place], [address] Neutrophils/100 WBC (Bld) 76.3 % High 47-70 [facility] Comment on above: Performed By: #### L 499.0042 #### [facility] [address] [place], [address] Nucleated RBC (Bld) [#/Vol] 0 10*3/uL Normal 0-5 [facility] Comment on above: Performed By: #### L 499.0042 #### [facility] [address] [place], [address] Platelet mean volume (Bld) [Entitic vol] 10.3 fL Normal 6.2-12.0 [facility] Comment on above: Performed By: #### L 499.0042 #### [facility] [address] [place], [address] Platelets (Bld) [#/Vol] 291 10*3/uL Normal 150-450 [facility] Comment on above: Performed By: #### L 499.0042 #### [facility] [address] [place], [address] RBC (Bld) [#/Vol] 5.50 10*6/uL Normal 4.6-6.2 [facility] Comment on above: Performed By: #### L 499.0042 #### [facility] [address] [place], [address] RDW SD 46.4 fl High 35.1-43.9 [facility] Comment on above: Performed By: #### L 499.0042 #### [facility] [address] [place], [address] WBC (Bld) [#/Vol] 12.5 10*3/uL High 4.4-11.0 [facility] Comment on above: Performed By: #### L 499.0042 #### [facility] [address] [place], [address] Carbon dioxide, total [Moles /volume] in Central venous bloodOrdered By: Gilberto Lorenzo on 12-06-2024 CO2 [Moles/Vol] 26.7 mmol/L 21.0-32.0 [facility] Chest PA and Lateralon 12-06 Chest PA and Lateral [facility] Imaging Services [address] [place] [address] Chest PA and Lateral MR#: [id number] Acct: [id number] Name: LUCAS MCCABE JrRowan Rep #: [id number] : 1965 M 59 From: Madi Farias DO PCP: Dr. Kaushik Seals MD Status: REG ER Study: Chest PA and Lateral Date of Exam: 12/06/24 Exam# [id number] Ordering Dr: Gilberto Lorenzo DO PROCEDURE: CHEST PA AND LATERAL 12/06/2024 REASON FOR EXAM: CONFUSION TECHNIQUE: Frontal and lateral views of the chest. COMPARISON: None FINDINGS: Hardware: None Heart: The heart size is normal. Mediastinum: The mediastinal contour is unremarkable. Lungs: Pulmonary vasculature is congested. Bones: The bones are unremarkable. RAD/Chest PA and Lateral IMPRESSION: Prominent bilateral interstitial markings, concerning for congestion. Reading Location: [facility] CC: Dr. Gilberto Lorenzo DO; Dr. Kaushik Seals MD Talent Engineer: Signed Normal [facility] Chloride assayOrdered By: Jose Enrique Lorenzo on 12-06-2024 Chloride [Moles/Vol] 98 mmol/L 98-108 [facility] Comprehensive Metabolic Prof ilon 12-06-2024 Albumin [Mass/Vol] 4.0 g/dL Normal 3.4-4.8 [facility] Comment on above: Performed By: #### L 499.0042 #### [facility] [address] [facility] [place], [address] Albumin/Globulin [Mass ratio] 1.3 {ratio} Normal 0.9-2.4 [facility] Comment on above: Performed By: #### L 499.0042 #### [facility] [address] [place], [address] ALK PHOS 119 U/L Normal 40-129 [facility] Comment on above: Performed By: #### L 499.0042 #### [facility] [address] [place], [address] ALT [Catalytic activity/Vol] 22 U/L Normal <=46 [facility] Comment on above: Performed By: #### L 499.0042 #### [facility] [address] [place], [address] AST [Catalytic activity/Vol] 26 U/L Normal <=37 [facility] Comment on above: Performed By: #### L 499.0042 #### [facility] [address] [place], [address] Bilirubin [Mass/Vol] 0.30 mg/dL Normal 0.00-1.30 [facility] Comment on above: Performed By: #### L 499.0042 #### [facility] [address] [place], [address] BUN/CRE 18.1 RATIO Normal 10-20 [facility] Comment on above: Performed By: #### L 499.0042 #### [facility] [address] [place], [address] Calcium [Mass/Vol] 9.3 mg/dL Normal 7.6-11.0 [facility] Comment on above: Performed By: #### L 499.0042 #### [facility] [address] [place], [address] Chloride [Moles/Vol] 98 mmol/L Normal 98-108 [facility] Comment on above: Performed By: #### L 499.0042 #### [facility] [address] [place], [address] CO2 [Moles/Vol] 26.7 mmol/L Normal 21.0-32.0 [facility] Comment on above: Performed By: #### L 499.0042 #### [facility] [address] [place], [address] Creatinine [Mass/Vol] 1.00 mg/dL Normal 0.70-1.20 [facility] Comment on above: Performed By: #### L 499.0042 #### [facility] [address] [place], [address] ECRCL 118.78 ml/min Normal 50-250 [facility] Comment on above: Performed By: #### L 499.0042 #### [facility] [address] [place], [address] GAP 12 Normal 5-15 [facility] Comment on above: Performed By: #### L 499.0042 #### [facility] [address] [place], [address] GFR/1.73 sq M.predicted among non-blacks MDRD (S/P/Bld) [Vol rate/Area] 86 mL/min/{1.73_m2} Normal >60 [facility] Comment on above: Result Comment: mL/m in/1.73m2 CKD-EPI Creatinine Equation (2020) Performed By: #### L 499.0042 #### [facility] [address] [place], [address] Globulin (S) [Mass/Vol] 3.2 g/dL Normal 2.2-4.2 [facility] Comment on above: Performed By: #### L 499.0042 #### [facility] [address] [place], [address] Glucose [Mass/Vol] 397 mg/dL High 70-99 [facility] Comment on above: Performed By: #### L 499.0042 #### [facility] [address] [place], [address] Potassium [Moles/Vol] 4.2 mmol/L Normal 3.3-5.1 [facility] Comment on above: Performed By: #### L 499.0042 #### [facility] [address] [place], [address] Sodium [Moles/Vol] 136 mmol/L Normal 133-145 [facility] Comment on above: Performed By: #### L 499.0042 #### [facility] [address] [place], [address] T PROT 7.3 g/dL Normal 5.9-8.4 [facility] Comment on above: Performed By: #### L 499.0042 #### [facility] [address] [place], [address] Urea nitrogen [Mass/Vol] 18 mg/dL Normal 4-19 [facility] Comment on above: Performed By: #### L 499.0042 #### [facility] [address] [place], [address] Determination of fraction of inspired oxygenOrdered By: Gilberto Lorenzo on 12-06-2024 Blood Gas Oxygen Percent 21.0 [facility] Emergency Department Summary on 12-06-2024 Emergency Department Summary [facility] Medical Records Department [address] [place] [address] Emergency Department Summary 12/06/24 MR#: [id number] Acct: [id number] Name: AMELIELUCAS KIRBY Jr. Rep #: [id number] : 1965 59 From: Gilberto Lorenzo DO PCP: Dr. Kaushik Seals MD Status:REG ER Location: ED HPI History of Present Illness Chief Complaint: Confusion Narrative Narrative: Patient presents with feeling weird that began today. Patient was at [facility] and staff there noticed that he was acting confused. Staff there states the patient hit a sign while he was walking. [facility] staff called EMS. EMS checked his blood sugar and it was in the 200s. Patient had no focal deficits for EMS. Currently, patient is alert and oriented to person, place, and year. Patient is unsure of the month or day. Patient states his symptoms began today and have been gradually getting worse. Patient denies any fevers or chills. Patient does admit to some shortness of breath and wheezing. Patient admits to some dysuria. Patient also admits to headache, neck pain, and back pain. [facility] Medical History (Updated 12/06/24 @ 23:[address] Gilberto Lorenzo, ) Degenerative disc disease GERD (gastroesophageal reflux disease) PVD (peripheral vascular disease) Hyperlipidemia CAD (coronary artery disease) Diabetes Hypothyroidism Hypertension COPD (chronic obstructive pulmonary disease) Home Medications ???Medication ???Instructions ???Recorded ???Last Taken ???Type duloxetine 60 mg capsule,delayed 60 mg PO BID mental health 4 03/27/20 09:00 History release gabapentin 300 mg capsule 300 mg PO QHS nerve pain 11/29/13 03/27/20 09:00 History lisinopril 20 mg tablet 20 mg PO DAILY blood pressure 05/0603/27/20 09:00 History metformin 500 mg tablet 500 mg PO DAILY diabetes 11/29/13 03/27/20 09:00 History omeprazole 20 mg capsule,delayed 40 mg PO DAILY reflux 11/29/1301/09 09:00 History release albuterol sulfate 2.5 mg/3 mL 2.5 mg (3 mL) inhalation Q2H PRN 0 11/30/13 Unknown Rx (0.083 %) solution for nebulization PRN SHORTNESS OF BREATH ##1 levothyroxine 75 mcg tablet 175 mcg PO DAILY@0600 thyroid 06/2403/27/20 09:00 History budesonide-formoterol HFA 80 2 puff inhalation BID breathing 03/27/20 09:00 History mcg-4.5 mcg/actuation aerosol inhaler (Symbicort) atorvastatin 10 mg tablet 10 mg PO QHS cholesterol 03/27/20 03/27/20 09:00 History meclizine 25 mg tablet 25 mg PO DAILY PRN Dizziness 03/2702/25/20 History apixaban 5 mg tablet 5 mg PO BID 08/21/20 Unknown Histo ry albuterol sulfate 90 mcg/actuation 2 puff inhalation Q4H PRN PRN Unknown Rx aerosol inhaler (Ventolin HFA) Wheezing #6.7 grams lidocaine 5 % topical patch 1 patch topical DAILY PRN pain #15 06/24/23 Unknown Rx (Lidoderm) ea cephalexin 500 mg capsule 500 mg PO Q6 #12 CAPSULES 12/06/24 Unknown Rx Allergy/AdvReac Type Severity Reaction Status Date / Time latex Allergy Anaphylaxis Verified 12/06/24 20:29 zolmitriptan (From Zomig) Allergy Other Verified 12/06/24 20:29 Surgical History (Updated 12/06/24 @ 20:[address] Gilberto Lorenzo DO) Hx of knee surgery Social History Smoking Status: Current every day smoker tobacco type: cigarettes ROS ROS ED Constitutional Constitutional ED: Denies chills or fever(s) Eyes Eyes: Denies blurry vision or change in vision ENT ENT ED: Denies rhinorrhea or sore throat Cardiovascular Cardiovascular: Denies chest pain or palpitations Respiratory/Chest Respiratory/Chest: Reports dyspnea; Denies cough Gastrointestinal Gastrointestinal: Denies nausea or vomiting Genitourinary Genitourinary ED: Reports dysuria; Denies hematuria Musculoskeletal Musculoskeletal: Reports back pain and neck pain Integumentary Denies abscess or rash Neurologic Neurologic: Reports headache(s); Denies weakness Allergic/Immunologic Allergic/Immunologic ED: Denies mouth swelling or urticaria EXAM Physical Exam Const Vital Signs: 12/06/24 20:20 12/06/24 20:35 12/06/24 20:58 Temperature 98.4 F Temperature Source Oral Pulse Rate 96 94 95 Respiratory Rate 18 24 H 26 H Blood Pressure 162/92 H Blood Pressure Mean 115 Pulse Ox 93 93 Oxygen Delivery Method Room Air 12/06/24 21:00 12/06/24 21:15 12/06/24 21:30 Temperature Temperature Source Pulse Rate 100 89 87 Respiratory Rate 27 H 25 H 24 H Blood Pressure 155/78 H 157/67 H Blood Pressure Mean 100 88 Pulse Ox 92 95 Oxygen Delivery Method 12/06/24 21:36 12/06/24 21:45 12/06/24 22:00 Temperature Temperature Source Pulse Rate 89 88 90 Respiratory Rate 24 H 25 H 25 H Blood Pressure 130/69 H (more content not included)... Normal [facility] Eosinophil percentageOrdered By: Gilberto Lorenzo on 12-06-2024 Eosinophils/100 WBC (Bld) 1.5 % 0-5 [facility] Epithelial cells.squamous LM Ql (Urine sed)Ordered By: Gilberto Lorenzo on 12-06-2024 Epithelial cells.squamous LM.HPF (Urine sed) [#/Area] 0 /[HPF] 0-5 [facility] Comment on above: Previous reported re sult: 0 SEEN /hpfEdited by: TAHIR on 12/06/24:2306 AMENDED REPORT 12/06/242306 SQUAM EPI previously reported as: 0 SEEN /hpf Erythrocyte distribution wid th (RBC) [Ratio]Ordered By: Gilberto Lorenzo on 12-06-2024 Erythrocyte distribution width (RBC) [Entitic vol] 46.4 fL High 35.1-43.9 [facility] Erythrocyte distribution wid th ratioOrdered By: Gilberto Lorenzo on 12-06-2024 Erythrocyte distribution width (RBC) [Ratio] 14.0 % 11.6-14.6 [facility] Estimation of creatinine sushil aranceOrdered By: Gilberto Lorenzo on 12-06-2024 Estimated Creatinine Clearance Calc 118.78 ml/min 50-250 [facility] Ethanol [Mass/Vol]Ordered By : Gilberto Lorenzo on 12-06-2024 Ethyl Alcohol Level < 10.1 mg/dL <10.1 [facility] Comment on above: This test is for med ical purposes only. The legal definition of intoxication varies according to local law. GFR/1.73 sq M.predicted farooq g non-blacks MDRD (S/P/Bld) [Vol rate/Area]Ordered By: Gilberto Lorenzo on 12-06-2024 Estimated GFR (MDRD) Non-Af Amer 86 >60 [facility] Comment on above: mL/min/1.73m2 CKD-EP I Creatinine Equation (2020) Glucose Ql (U)Ordered By: Jose Enrique Lorenzo on 12-06-2024 Glucose (U) [Mass/Vol] 1000 mg/dL High Normal [facility] Hematocrit Auto (Bld) [Volum e fraction]Ordered By: Gilberto Lorenzo on 12-06-2024 Hematocrit (Bld) [Volume fraction] 49.2 % 40-54 [facility] Hemoglobin measurementOrdere d By: Gilberto Lorenzo on 12-06-2024 Hemoglobin (Bld) [Mass/Vol] 16.4 g/dL 13.0-16.5 [facility] Immature granulocytes/100 WB C Auto (Bld)Ordered By: Gilberto Lorenzo on 12-06-2024 Immature granulocytes/100 WBC (Bld) 0.400 % 0.0-0.9 [facility] Comment on above: IG% - Immature Granu locytes (promyelocytes, myelocytes and metamyelocytes) > 1% indicates that a LEFT SHIFT is Present. Influenza virus A and B and SARS-CoV-2 (COVID-19) and Respiratory syncytial virus RNAOrdered By: Gilberto Lorenzo on 12-06-2024 SARS-CoV-2 (COVID-19) RNA JORI+probe Ql (Unsp spec) [facility] International normalized rat io (INR) calculationOrdered By: Gilberto Lorenzo on 12-06-2024 INR Coag (Bld) [Relative time] 1.0 {INR} [facility] Ketones Test strip Ql (U)Ord ered By: Gilberto Lorenzo on 12-06-2024 Ketones Ql (U) 5 mg/dl High Negative [facility] L499.0042on 12-06-2024 Trop T High Sen 18 ng/L Normal <=22 [facility] Comment on above: Performed By: #### L 500.2500, L100.0100, L501.4021 #### [facility] [address] [place], [address] L501.4021on 12-06-2024 Trop T High Sen 17 ng/L Normal <=22 [facility] Comment on above: Performed By: #### L 501.4021, L501.9520 #### [facility] [address] [place], [address] L503.7505on 12-06-2024 Natriuretic peptide B (Bld) [Mass/Vol] 140 pg/mL Normal <=900 [facility] Comment on above: Result Comment: Hear t Failure Unlikely: < 300 pg/mL Heart Failure Likely < 50 Years: > 450 pg/mL 50-75 Years: > 900 pg/mL >75 Years: > 1800 pg/mL Performed By: #### L 499.0042 #### [facility] [address] [place], [place], [address] Laboratory - Chemistry and C hemistry - challengeOrdered By: Gilberto Lorenzo on 12-06-2024 AST [Catalytic activity/Vol] 26 U/L <38 [facility] Lactic acid measurementOrder ed By: Gilberto Lorenzo on 12-06-2024 Lactate [Moles/Vol] 2.0 mmol/L Normal 0.0-2.0 [facility] Comment on above: Critical Result(s) C alled at: 2218 by:DELMY RAMOS TO JOSE MIGUEL SELF Results read back by same.Previous reported result: 2.0 mmol/LEdited by: NATHAN on 12/06/24:6 AMENDED REPORT 12/06/242235 LACTIC ACID previously reported as: 2.0 mmol/L Critical Result(s) Called at: 2218 by: JOSE MIGUEL SELF Results read back by same. Order Comment: Y Result Comment: Crit ical Result(s) Called at: 2218 by:DELMY RAMOS TO???JOSE MIGUEL SELF Results read back by same. AMENDED REPORT 12/06/242235 LACTIC ACID previously reported as: 2.0 mmol/L Critical Result(s) Called at: 2218 by:??JOSE MIGUEL SELF Results read back by same. Performed By: #### L 499.0042 #### [facility] [address] [place], [place], [address] Lymphocytes Auto (Unsp spec) [#/Vol]Ordered By: Gilberto Lorenzo on 12-06-2024 Lymphocytes (Bld) [#/Vol] 1.75 10*3/uL 0.83-4.51 [facility] Lymphocytes/100 WBC Auto (Un sp spec)Ordered By: Gilberto Lorenzo on 12-06-2024 Lymphocytes/100 WBC (Bld) 14.0 % Low 19-41 [facility] M100.678on 12-06-2024 M100.678 Pending SARS-CoV-2 (COVID 19) Negative INFLUENZA A Negative INFLUENZA B Negative RSV PCR Negative Normal [facility] Comment on above: Performed By: #### L 500.2500, L100.0100, L501.4021 #### [facility] [address] [place], [place], [id number] MCV (mean corpuscular volume ) determinationOrdered By: Gilberto Lorenzo on 12-06-2024 MCV (RBC) [Entitic vol] 89.5 fL 80-94 [facility] Mean corpuscular hemoglobin (MCH) determinationOrdered By: Gilberto Lorenzo on 12-06-2024 MCH (RBC) [Entitic mass] 29.8 pg 27.0-32.0 [facility] Mean corpuscular hemoglobin concentration (MCHC) determinationOrdered By: Gilberto Lorenzo on 12-06-2024 MCHC (RBC) [Mass/Vol] 33.3 g/dL 32-36 [facility] Mean platelet volume determi nationOrdered By: Gilberto Lorenzo on 12-06-2024 Platelet mean volume (Bld) [Entitic vol] 10.3 fL 6.2-12.0 [facility] Methadone, urineOrdered By: Gilberto Lorenzo on 12-06-2024 Urine Methadone Screen Negative < 300 ng/mL [facility] Microscopic analysis of urin e for red blood cells (RBC)Ordered By: Gilberto Lorenzo on 12-06-2024 Urine RBC 0-5 SEEN /hpf 0-5 [facility] Comment on above: Previous reported re sult: 0 SEEN /hpfEdited by: TAHIR on 12/06/24:6196 AMENDED REPORT 12/06/242305 RBC-UA previously reported as: 0 SEEN /hpf Monocyte percentageOrdered B y: Gilberto Lorenzo on 12-06-2024 Monocytes/100 WBC (Bld) 6.9 % 0-10 [facility] Mucus LM Ql (Urine sed)Order ed By: Gilberto Lorenzo on 12-06-2024 Mucus Ql (Urine sed) 0 SEEN /hpf [facility] Natriuretic peptide.B prohor wang N-Terminal [Mass/Vol]Ordered By: Gilberto Lorenzo on 12-06-2024 Natriuretic peptide B (Bld) [Mass/Vol] 140 pg/mL <900 [facility] Comment on above: Heart Failure Unlike ly: < 300 pg/mLHeart Failure Likely< 50 Years: > 450 pg/mL50-75 Years: > 900 pg/mL>75 Years: > 1800 pg/mL Neutrophil percentageOrdered By: Gilberto Lorenzo on 12-06-2024 Neutrophils/100 WBC (Bld) 76.3 % High 47-70 [facility] Nitrite Test strip Ql (U)Ord ered By: Gilberto Lorenzo on 12-06-2024 Nitrite Ql (U) Negative Negative [facility] No Panel InformationOrdered By: Gilberto Lorenzo on 12-06-2024 Blood Gas Sample Site L Radial [facility] Blood Gas Specimen Type ART [facility] Blood Gas Vent Mode Not entered [facility] Oxygen Delivery Device Room Air [facility] Urine Buprenorphine Qualitative Negative < 200 ng/mL [facility] Urine Oxycodone Screen Negative < 100 ng/mL [facility] Nucleated red blood cell per centageOrdered By: Gilberto Lorenzo on 12-06-2024 Nucleated RBC/100 WBC (Bld) [Ratio] 0 % 0-5 [facility] Oxygen saturation measuremen tOrdered By: Gilberto Lorenzo on 12-06-2024 Blood Gas Oxygen Saturation 90 % Low 95-99 [facility] Partial Thromboplast Timeon 12-06-2024 aPTT Coag (Bld) [Time] 29.2 s Normal 24.1-36.2 [facility] Comment on above: Performed By: #### L 499.0042 #### [facility] Laboratory [facility] [place], [address] Partial pressure of carbon d ioxide measurementOrdered By: Gilberto Lorenzo on 12-06-2024 Arterial Blood Partial Pressure CO2 50.6 mmHg High 35-45 [facility] Partial pressure of oxygen m easurementOrdered By: Gilberto Lorenzo on 12-06-2024 Arterial Blood Partial Pressure O2 61 mmHG Low 75-100 [facility] Platelet countOrdered By: Jose Enrique Lorenzo on 12-06-2024 Platelets (Bld) [#/Vol] 291 10*3/uL 150-450 [facility] Potassium (Unsp spec) [Mass/ Vol]Ordered By: Gilberto Lorenzo on 12-06-2024 Potassium [Moles/Vol] 4.2 mmol/L 3.3-5.1 [facility] Protein Test strip Ql (U)Ord ered By: Gilberto Lorenzo on 12-06-2024 Protein Ql (U) 100 mg/dl High Negative [facility] Prothrombin Time w/INRon INR Coag (PPP) [Relative time] 1.0 {INR} Normal [facility] Comment on above: Performed By: #### L 499.0042 #### [facility] [address] [place], [address] Prothrombin timeOrdered By: Gilberto Lorenzo on 12-06-2024 PT Coag (PPP) [Time] 13.4 s Normal 11.7-14.9 [facility] Comment on above: Performed By: #### L 499.0042 #### [facility] [address] [facility] [place], [address] Quantitative urine opiates m easurementOrdered By: Gilberto Lorenzo on 12-06-2024 Opiates Ql (U) Negative < 300 ng/mL [facility] RBC Auto (Bld) [#/Vol]Ordere d By: Gilberto Lorenzo on 12-06-2024 RBC (Bld) [#/Vol] 5.50 10*6/uL 4.6-6.2 [facility] Serum creatinine measurement (mass/volume)Ordered By: Gilberto Lorenzo on 12-06-2024 Creatinine [Mass/Vol] 1.00 mg/dL 0.70-1.20 [facility] Serum globulin measurementOr dered By: Gilberto Lorenzo on 12-06-2024 Globulin (S) [Mass/Vol] 3.2 g/dL 2.2-4.2 [facility] Serum glucose measurement (m ass/volume)Ordered By: Gilberto Lorenzo on 12-06-2024 Glucose [Mass/Vol] 397 mg/dL High 70-99 [facility] Serum or plasma alanine dubois otransferase (ALT) measurementOrdered By: Gilberto Lorenzo on 12-06-2024 ALT [Catalytic activity/Vol] 22 U/L <47 [facility] Serum or plasma albumin toño urement (mass/volume)Ordered By: Gilberto Lorenzo on 12-06-2024 Albumin [Mass/Vol] 4.0 g/dL 3.4-4.8 [facility] Serum or plasma albumin/glob ulin mass ratioOrdered By: Gilberto Lorenzo on 12-06-2024 Albumin/Globulin [Mass ratio] 1.3 {ratio} 0.9-2.4 [facility] Serum or plasma alkaline mary sphatase measurementOrdered By: Gilberto Lorenzo on 12-06-2024 ALP [Catalytic activity/Vol] 119 U/L 40-129 [facility] Serum or plasma calcium toño urement (mass/volume)Ordered By: Gilberto Lorenzo on 12-06-2024 Calcium [Mass/Vol] 9.3 mg/dL 7.6-11.0 [facility] Serum or plasma urea nitroge n measurement (mass/volume)Ordered By: Gilberto Lorenzo on 12-06-2024 Urea nitrogen [Mass/Vol] 18 mg/dL 4-19 [facility] Sodium levelOrdered By: Gilberto Lorenoz on 12-06-2024 Sodium [Moles/Vol] 136 mmol/L 133-145 [facility] T4 Free Directon 12-06-2024 T4 FREE DIRECT 0.30 ng/dL Low 0.76-1.46 [facility] Comment on above: Order Comment: *ADD- ON* Performed By: #### L 500.2500, L100.0100, L501.4021 #### [facility] [address], [place], [id number] T4 freeOrdered By: Gilberto bee on 12-06-2024 Free T4 [Mass/Vol] 0.30 ng/dL Low 0.76-1.46 [facility] TSH DL <= 0.005 mIU/L QnOrde red By: Gilberto Lorenzo on 12-06-2024 Thyroid Stimulating Hormone (TSH) 30.600 uIU/mL High 0.300-4.200 [facility] Thyroid Stim Hormone (TSH)on 12-06-2024 TSH 30.600 uIU/mL High 0.300-4.200 [facility] Comment on above: Performed By: #### L 501.4021, L501.9520 #### [facility] [address] [place], [address] Total carbon dioxide measure mentOrdered By: Gilberto Lorenzo on 12-06-2024 Blood Gas Total CO2 32 mmol/L [facility] Total proteinOrdered By: Sahna Lorenzo on 12-06-2024 Protein [Mass/Vol] 7.3 g/dL 5.9-8.4 [facility] Troponin T.cardiac High sens itivity method [Mass/Vol]Ordered By: Gilberto Lorenzo on 12-06-2024 Troponin T High Sensitivity 2 Hour 18 ng/L <22 [facility] Troponin T High Sensitivity 17 ng/L <22 [facility] Urinalysis, Completeon 12-06 EPI,SQUAMOUS 0-5 SEEN Normal 0-5 [facility] Comment on above: Order Comment: AKIKO NIXON TO SPECIFY Result Comment: AMENDED REPORT 12/06/243 SQUAM EPI previously reported as: 0 SEEN /hpf Performed By: #### L 400.0001 #### [facility] [address], [place], [id number] BACTERIA 2+ /hpf Normal None Seen [facility] Comment on above: Order Comment: AKIKO CTOR TO SPECIFY Result Comment: AMENDED REPORT 12/06/242305 BACTERIA previously reported as: 0 SEEN /hpf Performed By: #### L 400.0001 #### [facility] [address] [place], [address] RBC 0-5 SEEN Normal 0-5 [facility] Comment on above: Order Comment: AKIKO CTOR TO SPECIFY Result Comment: AMENDED REPORT 12/06/242305 RBC-UA previously reported as: 0 SEEN /hpf Performed By: #### L 400.0001 #### [facility] [address] [place], [address] WBC 10-25 SEEN Normal 0-5 [facility] Comment on above: Order Comment: AKIKO CTOR TO SPECIFY Result Comment: AMENDED REPORT 12/06/242303 WBC previously reported as: 0 SEEN /hpf Performed By: #### L 400.0001 #### [facility] [address] [place], [address] Urine Drug Screen (VISTA)on 12-06-2024 AMPHETAMINES Negative Normal <1000 ng/mL [facility] Comment on above: Performed By: #### L [id number] #### [facility] [address] [place], [address] BARBITIURATES Negative Normal < 200 ng/mL [facility] Comment on above: Performed By: #### L [id number] #### [facility] [address] [place], [address] BENZODIAZIPINE Negative Normal < 200 ng/mL [facility] Comment on above: Performed By: #### L [id number] #### [facility] [address] [place], [address] BUP Ur Drug Scr Negative Normal < 200 ng/mL [facility] Comment on above: Performed By: #### L [id number] #### [facility] [address] [place], [address] COCAINE Negative Normal < 300 ng/mL [facility] Comment on above: Performed By: #### L [id number] #### [facility] [address] [place], [address] Fentanyl Negative Normal [facility] Comment on above: Performed By: #### L [id number] #### [facility] [address] [facility] [address] METHADONE Negative Normal < 300 ng/mL [facility] Comment on above: Performed By: #### L [id number] #### [facility] [address] [place], [address] OPIATES Negative Normal < 300 ng/mL [facility] Comment on above: Performed By: #### L [id number] #### [facility] [address] [facility] [address] OXYCODONE Negative Normal < 100 ng/mL [facility] Comment on above: Performed By: #### L [id number] #### [facility] [address] [facility] [address] PCP Negative Normal < 25 ng/mL [facility] Comment on above: Performed By: #### L 499.0042 #### [facility] [address] [place], [address] THC Positive Normal < 50 ng/mL [facility] Comment on above: Result Comment: If c onfirmation testing is needed, a separate order will be required to send out testing to the reference laboratory. Performed By: #### L 499.0042 #### [facility] [address] [place], [address] Urine benzodiazepine levelOr dered By: Gilberto Lorenzo on 12-06-2024 Benzodiazepines Ql (U) Negative < 200 ng/mL [facility] Urine blood detectionOrdered By: Gilberto Lorenzo on 12-06-2024 Urine Occult Blood 25 /ul High Negative [facility] Urine clarityOrdered By: Shana Lorenzo on 12-06-2024 Clarity (U) Sl. Cloudy Clear [facility] Urine cocaine levelOrdered B y: Gilberto Lorenzo on 12-06-2024 Cocaine Ql (U) Negative < 300 ng/mL [facility] Urine color determinationOrd ered By: Gilberto Lorenzo on 12-06-2024 Color (U) Yellow Yellow [facility] Urine pxvbc-2-dvljelduntofax abinol (THC) measurementOrdered By: Gilberto Lorenzo on 12-06-2024 Cannabinoids Screen Ql (U) Positive < 50 ng/mL [facility] Comment on above: If confirmation test ing is needed, a separate order will be required to send out testing to the reference laboratory. Urine leukocyte esterase det ection by dipstickOrdered By: Gilberto Lorenzo on 12-06-2024 Leukocyte esterase Test strip Ql (U) 100 /ul High Negative [facility] Urine pHOrdered By: Gilberto ba on 12-06-2024 pH (U) 6.0 [pH] 5.0 - 8.0 [facility] Urine phencyclidine (PCP) de tectionOrdered By: Gilberto Lorenzo on 12-06-2024 Phencyclidine Ql (U) Negative < 25 ng/mL [facility] Urine sediment bacteria coun t by microscopy (number/high power field)Ordered By: Gilberto Lorenzo on 12-06-2024 Bacteria LM.HPF (Urine sed) [#/Area] 2 /[HPF] None Seen [facility] Comment on above: Previous reported re sult: 0 SEEN /hpfEdited by: TAHIR on 12/06/24:2306 AMENDED REPORT 12/06/24 2306 BACTERIA previously reported as: 0 SEEN /hpf Urine specific gravity measu rementOrdered By: Gilberto Lorenzo on 12-06-2024 Specific gravity (U) [Rel density] 1.020 1.002-1.030 [facility] Urobilinogen Ql (U)Ordered B y: Gilberto Lorenzo on 12-06-2024 Urobilinogen (U) [Mass/Vol] 1 mg/dL High Normal [facility] White blood cell (WBC) count Ordered By: Gilberto Lorenzo on 12-06-2024 WBC (Bld) [#/Vol] 12.5 10*3/uL High 4.4-11.0 [facility] White blood cell countOrdere d By: Gilberto Lorenzo on 12-06-2024 Urine WBC 10-25 SEEN /hpf 0-5 [facility] Comment on above: Previous reported re sult: 0 SEEN /hpfEdited by: TAHIR on 12/06/24:2303 AMENDED REPORT 12/06/242303 WBC previously reported as: 0 SEEN /hpf aPTT Coag (PPP) [Time]Ordere d By: Gilberto Lorenzo on 12-06-2024 aPTT Coag (Bld) [Time] 29.2 s 24.1-36.2 [facility] fentaNYL Screen Ql (U)Ordere d By: Gilberto Lorenzo on 12-06-2024 Urine Fentanyl Screen Negative [facility] pH (Unsp spec)Ordered By: Jose Enrique Lorenzo on 12-06-2024 Blood Gas pH 7.38 7.35-7.45 [facility] CNCOon 11-03-2024 CNCO Letter Text Normal [facility] CNOVon 11-03-2024 CNOV Office Visit (PULMWS ) -- AMELIELUCAS ([id number]) 1965 M Date Time Provider Department 11/03/24 1:30 PM GEORGIE BARRETO PULMWS During your visit today, we recorded the following information about you: Pulse Blood pressure Weight 78/minute 152/83 149.7 kg Georgie Barreto MD 11/03/2024 2:27 PM Signed . Respiratory [place] Note Patient name: Lucas Mccabe PCP: Kaushik Seals MD CC: Follow-up COPD HPI: Lucas Mccabe 59 year old male heavy smoker with PMH significant for morbid obesity, HTN, GERD, FVL mutation, PE/DVT, DM, hypothyroidism, COPD/GOLD 3 (FEV1 43%), LEONEL not on CPAP first and last seen by me in March 2021. At that time I counseled him on smoking cessation, started Breztri with as needed albuterol and referred him to lung cancer screening program. Last low-dose CT of the chest was in 2021 with reading of lung RADS category 2. He has not followed up. From a pulmonary standpoint he states he has been exactly the same as he was when he first saw me. He has severe dyspnea on exertion, he has chronic cough without much sputum production. He has persistent wheezing mainly at night. He is noncompliant with use of his nocturnal oxygen nor his CPAP. He is compliant with use of his Breztri. He continues to smoke up to 2 packs of cigarettes a day and has no desire to quit smoking. He has not been ill with any upper respiratory infection nor required hospitalization. DME: Lex DATA: PFT: Imaging / Diagnostic Studies: Last CT chest 2022: No suspicious lesions Lung cancer screen 2021: Review of CT shows emphysema changes in several small pulmonary nodules PAST MEDICAL HISTORY Diagnosis Date Chronic pain Displacement of intervertebral disc, site unspecified, without myelopathy 05/06/2005 DVT (deep venous thrombosis) ([facility]) Esophageal reflux Factor V Leiden mutation (HCC) Generalized osteoarthrosis, unspecified site Hypothyroidism Myalgia and myositis, unspecified Neuralgia, neuritis, and radiculitis, unspecified Obesity, unspecified LEONEL (obstructive sleep apnea) Pulmonary embolism (HCC) 03/2020 Spondylosis of unspecified site without mention of myelopathy Thoracic or lumbosacral neuritis or radiculitis, unspecified 04/01/2005 Type 2 diabetes mellitus (HCC) Unspecified essential hypertension ALLERGIES Allergen Reactions Latex Intolerance Headache, dizzy, trouble breathing Zomig [Zolmitriptan] Mental Status Change albuterol HFA (VENTOLIN HFA) 90 mcg/actuation inhaler INHALE 2 PUFFS ORALLY DIRECTED EVERY 4 HOURS NEEDED mrewyglmbb-mxtbgers-kmlflu mauricio (BREZTRI AEROSPHERE) 160-9-4.8 mcg/actuation HFA aerosol inhaler Inhale 2 Puffs as instructed two times a day. DULoxetine (CYMBALTA) 60 mg capsule Take 1 capsule by mouth two times a day. furosemide (LASIX) 40 mg tablet Take 1 tablet by mouth once daily. gabapentin (NEURONTIN) 300 mg capsule Take 1 capsule by mouth daily at bedtime for 186 days. levothyroxine (SYNTHROID) 200 mcg tablet Take 1 tablet by mouth once daily. Take on empty stomach. For Thyroid. levothyroxine (SYNTHROID) 75 mcg tablet Take 1 tablet by mouth once daily. Take on empty stomach. For Thyroid. To be taken with Levothyroxine 200 mcg tablet to make 275 mcg daily lisinopril (ZESTRIL) 20 mg tablet Take 1 tablet by mouth once daily. metFORMIN (GLUCOPHAGE) 500 mg tablet Take 2 tablets by mouth daily with breakfast. Meclizine HCl 50 mg tablet Take 50 mg by mouth two times a day as needed (dizziness). omeprazole (PRILOSEC) 40 mg capsule Take 1 capsule by mouth once daily. apixaban (ELIQUIS) 5 mg tab(s) Take 1 tablet by mouth two times a day. glimepiride (AMARYL) 4 mg tablet Take 1 tablet by mouth daily with breakfast. guaiFENesin (MUCINEX) 600 mg 12 hr tablet Take 2 tablets by mouth two times a day as needed for cold/allergy symptoms. atorvastatin (LIPITOR) 10 mg tablet Take 1 tablet by mouth once daily. Blood-Glucose Meter monitoring kit Glucose Meter of Choice - Kit - Dx: Type 2 DM - Uncontrolled E11.65 (Patient not taking: Reported on 11/03/2024) blood sugar diagnostic (BLOOD GLUCOSE TEST) test strip Test blood sugar(s) 1 times daily. Dx: Type 2 DM - Uncontrolled E11.65 Insulin: No (Patient not taking: Reported on 11/03/2024) Lancets Test blood sugar(s) 1 times daily. Dx: Type 2 DM - Uncontrolled E11.65 Insulin: No (Patient not taking: Reported on 11/03/2024) Social History Tobacco Use Smoking status: Every Day Current packs/day: 2.00 Average packs/day: 2.0 packs/day for 46.2 years (92.4 ttl pk-yrs) Types: Cigarettes, Cigars Start date: 08/23/1978 Smokeless tobacco: Former Tobacco comments: smokes Cigars blackand maloney and cigarettes 2 ppd smoker Vaping Use Vaping status: Never Used Substance Use Topics Alcohol use: Yes Comment: 6 pack per year Drug use: No FAMILY HISTORY (more content not included)... Normal [facility] No Panel Informationon 11-03 [facility] [address] [place] [address] Test Date: 2024-11-03 Pat Name: LUCAS MCCABE Department: Room: Gender: Male University Counselor: : 1965 Requested By: Order Number: [id number] Reading MD: Georgie Barreto MD Interpretive Statements PRE AND POST BD: Current ATS/ERS acceptability and repeatability standards for spirometry met. Start of test and EOFE criteria met. Medications and Allergies were reviewed for possible drug interactions per policy. No contraindications or sensitivities were noted. Meds taken: Breztri and Albuterol taken 2 hours before testing. 4 puffs Albuterol (360 mcg) delivered by MDI via holding chamber. HR pre =83/min, HR post =80/min.Current ATS/ERS acceptability and repeatability standards for DLCO met with 2 acceptable maneuvers.//LC IMPRESSION: Spirometry indicates severe obstruction. The increase in FEF 25-75 post-bronchodilator reflects an improvement in the small airway obstruction. The diffusing capacity (uncorrected for hemoglobin) is reduced. Electronically Signed On 11-03-2024 16:45:52 EDT by Georgie Barreto MD Site: WO ID: [id number] Name: LUCAS MCCABE Visit Date: 11/03/2024 Doctor: University Counselor: Timur Magallanes Age: 59 Date of : 1965 Gender: Male Race: White Height: 72.52 in Weight: 321.80 lbs BSA: 2.621 Diagnosis: Bullous emphysema_ Dyspnea: Cough: Wheeze: Tobacco Use: None Medications: Comments: PRE AND POST BD: Current ATS/ERS acceptability and repeatability standards for spirometry met. Start of test and EOFE criteria met. Medications and Allergies were reviewed for possible drug interactions per policy. No contraindications or sensitivities were noted. Meds taken: Breztri and Albuterol taken 2 hours before testing. 4 puffs Albuterol (360 mcg) delivered by MDI via holding chamber. HR pre =83/min, HR post =80/min.Current ATS/ERS acceptability and repeatability standards for DLCO met with 2 acceptable maneuvers.//LC Review Status: Not Reviewed PRE-BRONCH POST-BRONCH Pred LLN ULN Actual %Pred Actual %Chng SPIROMETRY FVC (L) 4.77 3.59 5.98 3.51 73 4.23 15 FEV1 (L) 3.67 2.72 4.57 1.72 46 1.97 6 FEV1/FVC 0.77 0.65 0.87 0.49 63 0.46 -5 FEF25 (L/sec) 2.05 2.61 27 FEF50 (L/sec) 4.84 2.71 6.96 0.80 16 1.11 38 FEF75 (L/sec) 0.97 0.39 2.27 0.23 23 0.44 92 TSL07-00 (L/sec) 3.13 1.53 5.31 0.61 19 0.95 55 FEF Max (L/sec) 9.75 7.27 12.24 3.04 31 4.37 43 FIVC (L) 3.12 3.77 20 FIF50 (L/sec) 3.29 3.24 -1 FIF Max (L/sec) 3.32 3.31 0 Time (sec) 14.37 15.49 7 REJI (L) 0.08 0.08 1 Time To FEF Max (sec) 0.12 0.09 -23 DIFFUSION DLCOunc (ml/min/mmHg) 29.33 19.40 39.27 19.04 64 DLunc/VA 0.04 0.03 0.05 0.04 97 VA (L) 7.31 5.94 8.67 4.77 65 BHT (sec) 11.39 IVC (L) 3.56 PULMONARY FUNCTION LAB [facility] SPIROMETRY WITH DILATOR IF O BSTRUCTEDon 11-03-2024 DLCO (ml/min/mmHg) 19.04 ml/min/mmHg [facility] DLCO LLN (ml/min/mmHg) 19.4 ml/min/mmHg [facility] DLCO PREDICTED (ml/min/mmHg) 29.33 ml/min/mmHg [facility] DLCO ULN (ml/min/mmHg) 39.27 ml/min/mmHg [facility] DLCO/VA (ml/min/mmHg/L) 0.04 ml/min/mmHg /L [facility] DLCO/VA PREDICTED (ml/min/mmHg/L) 0.04 ml/min/mmHg /L [facility] DLCO/VAcor (ml/min/mmHg/L) 0.04 ml/min/mmHg /L [facility] DLCOcor (ml/min/mmHg) 18.65 ml/min/mmHg [facility] DLCOcor PREDICTED (ml/min/mmHg) 29.33 ml/min/mmHg [facility] ERV PREDICTED (L) 1.59 [facility] FEF25% POST (L/S) 2.61 L[facility] FEF25% PRE (L/S) 2.05 [facility] ZAO51-62% LLN (L/S) 1.53 L/S [facility] OUN30-08% POST (L/S) 0.95 L/S [facility] CBQ87-63% PRE (L/S) 0.61 L/S [facility] PHY84-88% PREDICTED (L/S) 3.13 L/S [facility] FEF75% LLN (L/S) 0.39 L/S [facility] FEF75% POST (L/S) 0.44 L[facility]S [facility] FEF75% PRE (L/S0 0.23 [facility] FEF75% PREDICTED (L/S) 0.97 L/S [facility] FEF75% ULN (L/S) 2.27 [facility] FET POST (S) 15.49 S [facility] FET PRE (S) 14.37 S [facility] FEV1 LLN (L) 2.72 L [facility] FEV1 PRE (L) 1.72 L [facility] FEV1 PREDICTED (L) 3.67 L [facility] FEV1 ULN (L) 4.57 L [facility] FEV1/FVC LLN (%) 65 % [facility] FEV1/FVC POST (%) 46 % [facility] FEV1/FVC PRE (%) 49 % [facility] FEV1/FVC PREDICTED (%) 77 % [facility] FEV1_POST (L) 1.97 L [facility] FVC LLN (L) 3.59 L [facility] FVC POST (L) 4.23 L [facility] FVC PRE (L) 3.51 L [facility] FVC PREDICTED (L) 4.77 L [facility] FVC ULN (L) 5.98 L [facility] IC PREDICTED (L) 3.18 L/S [facility] PEF LLN (L/S) 7.27 L/S [facility] PEF POST (L/S) 4.37 L/S [facility] PEF PRE (L/S) 3.04 L/S [facility] PEF ULN (L/S) 12.24 L/S [facility] SVC LLN (L) 3.59 L/S [facility] SVC PREDICTED (L) 4.77 L/S [facility] SVC ULN (L) 5.98 L/S [facility] VA (L) 4.77 L [facility] VA PREDICTED (L) 7.[address] [facility] CNOVon 10-18-2024 CNOV Office Visit (FAMPWS ) -- LUCAS MCCABE ([id number]) 1965 M Date Time Provider Department 10/18/24 1:40 PM [facility] During your visit today, we recorded the following information about you: Pulse Respiration Blood pressure Weight 79/minute 16/minute 140/88 150 kg Shaye Dobbins APRN.DIRECTOR HAIR 10/18/2024 1:41 PM Addendum Start Doxycycline twice daily Start Prednisone burst 40 mg daily for 5 days Recommend smoking cessation Get fasting labs completed, no food for 10-12 hours prior, you can have black coffee and water Schedule follow up with Pulmonology Schedule consult with general surgery to discuss colonoscopy Do not take Celebrex or other NSAIDS while on blood thinner, may use Tylenol as needed. Follow up in 3 months or sooner as needed. Shaye Dobbins APRN.DIRECTOR HAIR 10/18/2024 6:58 PM Signed This is a 59 year old male who presents today with: Patient presents with: 6 Month Exam HISTORY OF PRESENT ILLNESS: Lucas Mccabe is a 59 year old male. Patient presents with: 6 Month Exam 6 month follow up, cancelled follow up appointment in the fall for his blood pressure. Hypothyroid: TSH was low in March, never completed follow up labs in May. Taking Synthroid 275 mcg daily. On going fatigue. BPPV: Using Meclizine prn and referred to PT. Has yet to schedule. HTN: Taking lisinopril 20 mg daily. Lasix 40 mg daily. Not currently checking blood pressure at home. Denies chest pain, palpitations, or dizziness. History of PE/COPD: Taking Eliquis 5 mg BID. Taking breztri 2 puff BID, using albuterol inhaler as needed. Use to see pulmonology. Past due for follow-up. Lipids: Taking Liptor 10 mg daily. Not watching diet. DM2: Taking metformin 500 mg, 2 tablets daily with breakfast, glimepiride 4 mg daily. Not currently checking blood sugars at home. Denies increased urination/thirst. GERD: Taking Prilosec 40 mg daily. Symptoms well-controlled medication. DDD lumbar: Taking Gabapentin 300 mg at bedtime. Colonoscopy: Smoking 2 PPD Vaccines: Would like Flu vaccine today PAST MEDICAL HISTORY: PAST MEDICAL HISTORY Diagnosis Date Chronic pain Displacement of intervertebral disc, site unspecified, without myelopathy 05/06/2005 DVT (deep venous thrombosis) ([facility]) Esophageal reflux Factor V Leiden mutation (HCC) Generalized osteoarthrosis, unspecified site Hypothyroidism Myalgia and myositis, unspecified Neuralgia, neuritis, and radiculitis, unspecified Obesity, unspecified LEONEL (obstructive sleep apnea) Pulmonary embolism (HCC) 03/2020 Spondylosis of unspecified site without mention of myelopathy Thoracic or lumbosacral neuritis or radiculitis, unspecified 04/01/2005 Type 2 diabetes mellitus (HCC) Unspecified essential hypertension PAST SURGICAL HISTORY Procedure Laterality Date ARTHROSCOPY KNEE DIAGNOSTIC W/WO SYNOVIAL BX SPX 04/17/2003 Arthroscopy, knee, right knee COLONOSCOPY FLX DX W/COLLJ SPEC WHEN PFRMD 05/21/2014 Colonoscopy COLONOSCOPY FLX DX W/COLLJ SPEC WHEN PFRMD 05/27/15 Colonoscopy ESOPHAGOGASTRODUODENOSCOPY TRANSORAL DIAGNOSTIC 05/21/2014 EGD ALLERGIES Latex and Zomig [Zolmitriptan] MEDICATIONS Current Outpatient Medications Medication Sig levothyroxine (SYNTHROID) 200 mcg tablet Take 1 tablet by mouth once daily. Take on empty stomach. For Thyroid. levothyroxine (SYNTHROID) 75 mcg tablet Take 1 tablet by mouth once daily. Take on empty stomach. For Thyroid. To be taken with Levothyroxine 200 mcg tablet to make 275 mcg daily meclizine 50 mg tablet Take 50 mg by mouth two times a day as needed (dizziness). omeprazole (PRILOSEC) 40 mg capsule Take 1 capsule by mouth once daily. apixaban (ELIQUIS) 5 mg tab(s) Take 1 tablet by mouth two times a day. Blood-Glucose Meter monitoring kit Glucose Meter of Choice - Kit - Dx: Type 2 DM - Uncontrolled E11.65 blood sugar diagnostic (BLOOD GLUCOSE TEST) test strip Test blood sugar(s) 1 times daily. Dx: Type 2 DM - Uncontrolled E11.65 Insulin: No glimepiride (AMARYL) 4 mg tablet Take 1 tablet by mouth daily with breakfast. Lancets Test blood sugar(s) 1 times daily. Dx: Type 2 DM - Uncontrolled E11.65 Insulin: No guaiFENesin (MUCINEX) 600 mg 12 hr tablet Take 2 tablets by mouth two times a day as needed for cold/allergy symptoms. albuterol HFA (VENTOLIN HFA) 90 mcg/actuation inhaler INHALE 2 PUFFS ORALLY DIRECTED EVERY 4 HOURS NEEDED metFORMIN (GLUCOPHAGE) 500 mg tablet Take 2 tablets by mouth daily with breakfast. atorvastatin (LIPITOR) 10 mg tablet Take 1 tablet by mouth once daily. furosemide (LASIX) 40 mg tablet Take 1 tablet by mouth once daily. DULoxetine (CYMBALTA) 60 mg capsule Take 1 capsule by mouth two times a day. kcbyzhggvk-vzjgyonb-kbkmbq mauricio (BREZTRI AEROSPHERE) 160-9-4.8 mcg/actuation HFA aerosol inhaler Inhale 2 Puffs as instructed two times a day. gabapentin (NEURON (more content not included)... Normal [facility] Emergency Department Summary on 07-21-2024 Emergency Department Summary [facility] Medical Records Department [address] [place] [address] Emergency Department Summary 07/21/24 MR#: [id number] Acct: [id number] Name: LUCAS MCCABE Jr. Rep #: [id number] : 1965 59 From: Farrukh Venegas DO PCP: Dr. Kaushik Seals MD Status:DEP ER Location: ED HPI History of Present Illness Chief Complaint: Lower Extremity Injury Detail of Chief Complaint: Left calf pain Informant: patient Narrative Narrative: Patient presents with left calf pain x 2 days. Patient has history of DVT and history of PE and currently on Eliquis. He states that he sometimes forgets to take his Eliquis because at the end of the month he has some pills left over. He is not sure if he has missed any recently and he is very vague about how regularly he takes it. Patient states that he traveled 2 days ago to [place] which is less than 50 miles away apparently and that is when the pain started. He denies chest pain or shortness of breath. Denies fever. He denies injury to the extremity. [facility] Medical History CAD (coronary artery disease) COPD (chronic obstructive pulmonary disease) Degenerative disc disease Diabetes GERD (gastroesophageal reflux disease) Hyperlipidemia Hypertension Hypothyroidism PVD (peripheral vascular disease) Home Medications ???Medication ???Instructions ???Recorded ???Last Taken ???Type duloxetine 60 mg capsule,delayed 60 mg PO BID mental health 11/29/13 03/27/20 09:00 History release gabapentin 300 mg capsule 300 mg PO QHS nerve pain 11/29/13 03/27/20 09:00 History lisinopril 20 mg tablet 20 mg PO DAILY blood pressure 11/29/13 03/27/20 09:00 History metformin 500 mg tablet 500 mg PO DAILY diabetes 11/29/13 03/27/20 09:00 History omeprazole 20 mg capsule,delayed 40 mg PO DAILY reflux 11/29/13 03/27/20 09:00 History release albuterol sulfate 2.5 mg/3 mL 2.5 mg (3 mL) inhalation Q2H PRN 11/30/13 Unknown Rx (0.083 %) solution for nebulization PRN SHORTNESS OF BREATH ##1 levothyroxine 75 mcg tablet 175 mcg PO DAILY@0600 thyroid 07/17/15 03/27/20 09:00 History budesonide-formoterol HFA 80 2 puff inhalation BID breathing 04/02/18 03/27/20 09:00 History mcg-4.5 mcg/actuation aerosol inhaler (Symbicort) atorvastatin 10 mg tablet 10 mg PO QHS cholesterol 03/27/20 03/27/20 09:00 History meclizine 25 mg tablet 25 mg PO DAILY PRN Dizziness 03/27/20 02/25/20 History apixaban 5 mg tablet 5 mg PO BID 08/21/20 Unknown History albuterol sulfate 90 mcg/actuation 2 puff inhalation Q4H PRN PRN 08/11/21 Unknown Rx aerosol inhaler (Ventolin HFA) Wheezing #6.7 grams lidocaine 5 % topical patch 1 patch topical DAILY PRN pain #15 06/24/23 Unknown Rx (Lidoderm) ea Allergy/AdvReac Type Severity Reaction Status Date / Time latex Allergy Anaphylaxis Verified 07/21/24 09:48 zolmitriptan (From Zomig) Allergy Other Verified 07/21/24 09:48 Social History Smoking Status: Current every day smoker tobacco type: cigarettes ROS ROS ED Review of Systems ROS Unobtainable: other Constitutional Constitutional ED: Reports lethargy; Denies chills, fever(s), sweats or weight loss Eyes Eyes: Denies blurry vision, change in vision or diplopia ENT ENT ED: Denies rhinorrhea or sore throat Cardiovascular Cardiovascular: Denies chest pain, orthopnea or racing heartbeat Respiratory/Chest Respiratory/Chest: Denies cough, dyspnea, dyspnea on exertion, orthopnea or sputum Gastrointestinal Gastrointestinal: Denies abdominal pain, diarrhea, nausea or vomiting Genitourinary Genitourinary ED: Denies dysuria, hematuria or urinary frequency Musculoskeletal Musculoskeletal: Reports other Details: Left calf pain ; Denies arthralgias, back pain, myalgias or neck pain Integumentary Denies abscess, Abrasions or rash Neurologic Neurologic: Denies headache(s) or weakness Psychiatric Psychiatric: Denies anxiety, depression or suicidal thoughts Endocrine Endocrinology: Denies polydipsia, polyphagia or polyuria Hematologic/Lymphatic Hematologic/Lymphatic: Denies easy bleeding, easy bruising or lymphadenopathy Allergic/Immunologic Allergic/Immunologic ED: Denies mouth swelling, tongue swelling or urticaria EXAM Physical Exam Const Vital Signs: 07/21/24 09:47 Temperature 98.3 F Temperature Source Temporal Pulse Rate 85 Respiratory Rate 14 Blood Pressure 148/105 H Blood Pressure Mean 119 Pulse Ox 97 Oxygen Delivery Method Room Air Positive well nourished and well developed General Appearance ED: well developed and NAD HEENT Reports TM's clear and moist mucous membranes normocephalic and atraumatic; Negative for trauma or tenderness Tympanic Membrane ED: Yes TM's cl (more content not included)... Normal [facility] Venous Duplex US, Unilateral on 07-21-2024 Venous Duplex US, Unilateral [facility] [address] [place] [address] Venous Duplex US, Unilateral 07/21/24 1004 MR#: [id number] Acct: [id number] Name: AMELIELUCAS Marilee Leslie Rep #: [id number] : 1965 59 From: Nacho Alvarado MD Attending Dr: Status: DEP ER Ordering Dr: Farrukh Venegas DO Date: 07/21/24 Location: ED Sex: M C Admitted: Reason For Study: LT Calf Pain RIGHT LEFT CFV is compressible, spontaneous, phasic, GSV is normal. competent and demonstrates normal CFV is compressible, spontaneous, phasic, augmentation. competent, and demonstrates normal Procedure augmentation. This is a venous duplex using B-mode, color FV is compressible, spontaneous, phasic, flow and spectral Doppler. competent and demonstrates normal Exam performed portable in ED. augmentation. The exam was diagnostic. Acute deep vein thrombosis is noted in the A preliminary report was called and/or faxed POP V. It is dilated and NONCOMPRESSIBLE. to ED JOSE [place]. Acute deep vein thrombosis is noted in the T/P Trunk. It is dilated and NONCOMPRESSIBLE. PTV is compressible. Acute deep vein thrombosis is noted in the Per V. It is dilated and NONCOMPRESSIBLE. VL/Venous Duplex US, Unilateral Interpretation Summary Acute deep vein thrombosis is noted in the left popliteal vein. Acute deep vein thrombosis is noted in the left tibio-peroneal trunk. Acute deep vein thrombosis is noted in the left peroneal vein. The remainder of the left lower extremity deep venous system is patent and compressible. Valvular competence appears intact within the proximal deep venous system on the left . The left great saphenous vein appears patent and compressible segmentally. The right common femoral vein is patent and compressible . Ordering Physician: Farrukh Venegas Referring Physician: MD Kaushik Seals Performed By: Chon Mckeon, Mendez 07/21/242105 Date Nacho Alvarado MD CC: Dr. Kaushik Seals MD; Dr. Farrukh Venegas DO Date Dictated: 07/21/241003 Date Transcribed: 07/21/242105 Talent Engineer: Signed Normal [facility] Absolute lymphocyte countOrd ered By: Diego Caruos on 06-24-2023 Lymphocytes Auto (Unsp spec) [#/Vol] 1.91 10*3/uL 0.83-4.51 [facility] Basophil percentageOrdered B y: Diego Caruso on 06-24-2023 Basophils/100 WBC (Bld) 1.2 % 0-1 [facility] Chloride [Moles/Vol] 103 mmol/L 98-107 [facility] Eosinophils/100 WBC (Bld) 3.0 % 0-5 [facility] Glucose [Mass/Vol] 113 mg/dL 74-106 [facility] Comment on above: Fasting Glucose resu lt from 100 to 125 mg/dL suggests IMPAIRED HOMEOSTASIS per A.D.A. criteria. Neutrophils (Bld) [#/Vol] 9.2 10*3/uL 2.0-7.7 [facility] Neutrophils/100 WBC (Bld) 71.6 % 47-70 [facility] Potassium [Moles/Vol] 3.6 mmol/L 3.5-5.1 [facility] Sodium [Moles/Vol] 138 mmol/L 136-145 [facility] WBC (Bld) [#/Vol] 12.8 10*3/uL 4.4-11.0 [facility] Blood erythrocytes count (nu mber/volume)Ordered By: Diego Caruso on 06-24-2023 RBC (Bld) [#/Vol] 6.22 10*6/uL 4.6-6.2 [facility] Blood hemoglobin measurement (mass/volume)Ordered By: Diego Caruso on 06-24-2023 Hemoglobin (Bld) [Mass/Vol] 18.1 g/dL 13.0-16.5 [facility] Comment on above: CRITICAL VALUE VERIF IED. CALLED TO [facility]06/24/23 Traci Nicole.RESULTS READ BACK BY SAME . Blood lymphocytes/100 leukoc ytesOrdered By: Diego Caruso on 06-24-2023 Lymphocytes/100 WBC (Bld) 14.9 % 19-41 [facility] Blood monocytes/100 leukocyt esOrdered By: Diego Caruso on 06-24-2023 Monocytes/100 WBC (Bld) 9.0 % 0-10 [facility] Blood platelet mean volumeOr dered By: Diego Caruso on 06-24-2023 Platelet mean volume (Bld) [Entitic vol] 10.6 fL 6.2-12.0 [facility] Determination of erythrocyte mean corpuscular volume (MCV)Ordered By: Diego Caruso on 06-24-2023 MCV (RBC) [Entitic vol] 88.7 fL 80-94 [facility] Hematocrit Auto (Bld) [Volum e fraction]Ordered By: Diego Caruso on 06-24-2023 Hematocrit (Bld) [Volume fraction] 55.2 % 40-54 [facility] Laboratory - Chemistry and C hemistry - challengeOrdered By: Diego Caruso on 06-24-2023 CO2 [Moles/Vol] 28.0 mmol/L 21.0-32.0 [facility] Natriuretic peptide B (Bld) [Mass/Vol] 19.4 pg/mL 0-100 [facility] Urea nitrogen/Creatinine [Mass ratio] 23.4 mg/mg 10-20 [facility] Laboratory - Hematology and Cell countsOrdered By: Diego Caruso on 06-24-2023 Erythrocyte distribution width (RBC) [Entitic vol] 46.5 fL 35.1-43.9 [facility] Erythrocyte distribution width (RBC) [Ratio] 14.6 % 11.6-14.6 [facility] Immature granulocytes/100 WBC (Bld) 0.300 % 0.0-0.9 [facility] Comment on above: IG% - Immature Granu locytes (promyelocytes, myelocytes and metamyelocytes) > 1% indicates that a LEFT SHIFT is Present. MCH (RBC) [Entitic mass] 29.1 pg 27.0-32.0 [facility] Nucleated RBC/100 WBC (Bld) [Ratio] 0 % 0-5 [facility] MCHC Auto (RBC) [Mass/Vol]Or dered By: Diego Caruso on 06-24-2023 MCHC (RBC) [Mass/Vol] 32.8 g/dL 32-36 [facility] No Panel InformationOrdered By: Diego Caruso on 06-24-2023 Estimated Creatinine Clearance Calc 89.08 ml/min [facility] Estimated GFR (MDRD) Amer 101 mL/min >60 [facility] Comment on above: GFR Calc Estimated GFR (MDRD) Non-Af Amer 83 mL/min >60 [facility] Comment on above: Non- GFR Calc Troponin I High Sensitivity 5 pg/mL 3.0-78.0 [facility] Comment on above: Please Note: New [place] t Units and Gender Specific Reference Ranges. For more information see Policy Stat Procedure [place] High Sensitivity Troponin (TNIH) and attachments. Platelets bldOrdered By: Miguel Caruso on 06-24-2023 Platelets (Bld) [#/Vol] 296 10*3/uL 150-450 [facility] Review by pathologistOrdered By: Diego Caruso on 06-24-2023 Pathologist review Trey (Unsp spec) [Interp] May foll [facility] Serum or plasma calcium toño urement (mass/volume)Ordered By: Diego Caruso on 06-24-2023 Calcium [Mass/Vol] 9.3 mg/dL 8.5-10.1 [facility] Serum or plasma creatinine m easurement (mass/volume)Ordered By: Diego Caruso on 06-24-2023 Creatinine [Mass/Vol] 0.98 mg/dL 0.70-1.30 [facility] Comment on above: The validity of the calculated GFR & GFRAA in patients over 70 years has not been determined. Clinical correlation is essential. Serum or plasma urea nitroge n measurement (mass/volume)Ordered By: Diego Caruso on 06-24-2023 Urea nitrogen [Mass/Vol] 23 mg/dL - [facility] Thin prep Papanicolaou smear with manual screeningOrdered By: Diego Caruso on 06-24-2023 Thin prep Papanicolaou smear with manual screening 7 - [facility] CBC panel Auto (Bld)on 03-05 Erythrocyte distribution width (RBC) [Ratio] 14.6 % 11.5 - 15.0 % [facility] Hematocrit (Bld) [Volume fraction] 52.3 % High 39.0 - 51.0 % [facility] Hemoglobin (Bld) [Mass/Vol] 16.9 g/dL 13.0 - 17.0 g/dL [facility] MCH (RBC) [Entitic mass] 29.2 pg 26.0 - 34.0 pg [facility] MCHC (RBC) [Mass/Vol] 32.3 g/dL 30.5 - 36.0 g/dL [facility] MCV (RBC) [Entitic vol] 90.5 fL 80.0 - 100.0 fL [facility] Nucleated RBC (Bld) [#/Vol] <0.01 k/uL [facility] Platelet mean volume (Bld) [Entitic vol] 10.1 fL 9.0 - 12.7 fL [facility] Platelets (Bld) [#/Vol] 278 10*3/uL 150 - 400 k/uL [facility] RBC (Bld) [#/Vol] 5.78 10*6/uL 4.20 - 6.0 0 m/uL [facility] WBC (Bld) [#/Vol] 9.79 10*3/uL 3.70 - 11.00 k/uL [facility] HbA1c (Bld)on 03-05-2023 Average glucose Estimated from glycated hemoglobin (Bld) [Mass/Vol] 126 mg/dL [facility] HbA1c (Bld) [Mass fraction] 6.0 % High 4.3 - 5.6 % [facility] Absolute lymphocyte countOrd ered By: Dr. Venegas on 11-19-2022 Lymphocytes Auto (Unsp spec) [#/Vol] 2.08 10*3/uL 0.83-4.51 [facility] Basophil percentageOrdered B y: Dr. Venegas on 11-19-2022 Basophils/100 WBC (Bld) 0.6 % 0-1 [facility] Chloride [Moles/Vol] 103 mmol/L 98-107 [facility] Eosinophils/100 WBC (Bld) 2.6 % 0-5 [facility] Glucose [Mass/Vol] 114 mg/dL 74-106 [facility] Comment on above: Fasting Glucose resu lt from 100 to 125 mg/dL suggests IMPAIRED HOMEOSTASIS per A.D.A. criteria. Neutrophils (Bld) [#/Vol] 5.6 10*3/uL 2.0-7.7 [facility] Neutrophils/100 WBC (Bld) 64.9 % 47-70 [facility] Potassium [Moles/Vol] 3.5 mmol/L 3.5-5.1 [facility] Sodium [Moles/Vol] 137 mmol/L 136-145 [facility] WBC (Bld) [#/Vol] 8.6 10*3/uL 4.4-11.0 [facility] Blood erythrocytes count (nu mber/volume)Ordered By: Dr. Venegas on 11-19-2022 RBC (Bld) [#/Vol] 6.11 10*6/uL 4.6-6.2 [facility] Blood hemoglobin measurement (mass/volume)Ordered By: Dr. Venegas on 11-19-2022 Hemoglobin (Bld) [Mass/Vol] 17.6 g/dL 13.0-16.5 [facility] Blood lymphocytes/100 leukoc ytesOrdered By: Dr. Venegas on 11-19-2022 Lymphocytes/100 WBC (Bld) 24.3 % 19-41 [facility] Blood monocytes/100 leukocyt esOrdered By: Dr. Venegas on 11-19-2022 Monocytes/100 WBC (Bld) 7.4 % 0-10 [facility] Blood platelet mean volumeOr dered By: Dr. Venegas on 11-19-2022 Platelet mean volume (Bld) [Entitic vol] 10.1 fL 6.2-12.0 [facility] Determination of erythrocyte mean corpuscular volume (MCV)Ordered By: Dr. Venegas on 11-19-2022 MCV (RBC) [Entitic vol] 87.1 fL 80-94 [facility] Hematocrit Auto (Bld) [Volum e fraction]Ordered By: Dr. Venegas on 11-19-2022 Hematocrit (Bld) [Volume fraction] 53.2 % 40-54 [facility] Laboratory - Chemistry and C hemistry - challengeOrdered By: Dr. Venegas on 11-19-2022 CO2 [Moles/Vol] 25.0 mmol/L 21.0-32.0 [facility] Urea nitrogen/Creatinine [Mass ratio] 20.5 mg/mg 10-20 [facility] Laboratory - Hematology and Cell countsOrdered By: Dr. Venegas on 11-19-2022 Erythrocyte distribution width (RBC) [Entitic vol] 44.4 fL 35.1-43.9 [facility] Erythrocyte distribution width (RBC) [Ratio] 13.9 % 11.6-14.6 [facility] Immature granulocytes/100 WBC (Bld) 0.200 % 0.0-0.9 [facility] Comment on above: IG% - Immature Granu locytes (promyelocytes, myelocytes and metamyelocytes) > 1% indicates that a LEFT SHIFT is Present. MCH (RBC) [Entitic mass] 28.8 pg 27.0-32.0 [facility] Nucleated RBC/100 WBC (Bld) [Ratio] 0 % 0-5 [facility] MCHC Auto (RBC) [Mass/Vol]Or dered By: Dr. Venegas on 11-19-2022 MCHC (RBC) [Mass/Vol] 33.1 g/dL 32-36 [facility] No Panel InformationOrdered By: Dr. Venegas on 11-19-2022 Troponin I High Sensitivity 4 pg/mL 3.0-78.0 [facility] Comment on above: Please Note: New [place] t Units and Gender Specific Reference Ranges. For more information see Policy Stat Procedure [place] High Sensitivity Troponin (TNIH) and attachments. D-Dimer Quantitative (PE/DVT) 1.30 FEU/ug/m 0.27-0.49 [facility] Comment on above: D-Dimer ELEVATED (>0 .49): Additional studies and clinicalassessments are indicated to conclude diagnosis of:Deep Vein Thrombosis (DVT) or Pulmonary Embolism (PE)CRITICAL VALUE VERIFIED. CALLED TO ERNESTINE11/19/22 Paula Varma.RESULTS READ BACK BY SAME. Estimated Creatinine Clearance Calc 121.07 ml/min [facility] Estimated GFR (MDRD) Amer 141 mL/min >60 [facility] Comment on above: GFR Calc Estimated GFR (MDRD) Non-Af Amer 116 mL/min >60 [facility] Comment on above: Non- GFR Calc Platelets bldOrdered By: Dr. Venegas on 11-19-2022 Platelets (Bld) [#/Vol] 236 10*3/uL 150-450 [facility] Serum or plasma calcium toño urement (mass/volume)Ordered By: Dr. Venegas on 11-19-2022 Calcium [Mass/Vol] 9.1 mg/dL 8.5-10.1 [facility] Serum or plasma creatinine m easurement (mass/volume)Ordered By: Dr. Venegas on 11-19-2022 Creatinine [Mass/Vol] 0.73 mg/dL 0.70-1.30 [facility] Comment on above: The validity of the calculated GFR & GFRAA in patients over 70 years has not been determined. Clinical correlation is essential. Serum or plasma urea nitroge n measurement (mass/volume)Ordered By: Dr. Venegas on 11-19-2022 Urea nitrogen [Mass/Vol] 15 mg/dL 7-18 [facility] Thin prep Papanicolaou smear with manual screeningOrdered By: Dr. Venegas on 11-19-2022 Thin prep Papanicolaou smear with manual screening 9 5-15 [facility] Absolute lymphocyte counton 02-11-2022 Lymphocytes Auto (Unsp spec) [#/Vol] 1.70 10*3/uL 0.83-4.51 [facility] Work Phone: Basophil percentageon 2021 Basophils/100 WBC (Bld) 0.6 % 0-1 [facility] Work Phone: Chloride [Moles/Vol] 105 mmol/L 98-107 [facility] Work Phone: Eosinophils/100 WBC (Bld) 4.0 % 0-5 [facility] Work Phone: Glucose [Mass/Vol] 215 mg/dL 74-106 [facility] Work Phone: Comment on above: Glucose result great er than or equal to 200 mg/dLsuggests DIABETES MELLITUS per A.D.A. criteria. Neutrophils (Bld) [#/Vol] 8.0 10*3/uL 2.0-7.7 [facility] Work Phone: Neutrophils/100 WBC (Bld) 72.2 % 47-70 [facility] Work Phone: Potassium [Moles/Vol] 3.3 mmol/L 3.5-5.1 [facility] Work Phone: Sodium [Moles/Vol] 139 mmol/L 136-145 [facility] Work Phone: WBC (Bld) [#/Vol] 11.1 10*3/uL 4.4-11.0 [facility] Work [facility]: Blood erythrocytes count (nu mber/volume)on 02-11-2022 RBC (Bld) [#/Vol] 5.74 10*6/uL 4.6-6.2 [facility] Work Phone: Blood hemoglobin measurement (mass/volume)on 02-11-2022 Hemoglobin (Bld) [Mass/Vol] 16.6 g/dL 13.0-16.5 [facility] Work Phone: Blood lymphocytes/100 leukoc yteson 02-11-2022 Lymphocytes/100 WBC (Bld) 15.3 % 19-41 [facility] Work Phone: Blood monocytes/100 leukocyt eson 02-11-2022 Monocytes/100 WBC (Bld) 7.5 % 0-10 [facility] Work Phone: Blood platelet mean volumeon 02-11-2022 Platelet mean volume (Bld) [Entitic vol] 10.3 fL 6.2-12.0 [facility] Work Phone: Determination of erythrocyte mean corpuscular volume (MCV)on 02-11-2022 MCV (RBC) [Entitic vol] 87.3 fL 80-94 [facility] Work Phone: Hematocrit Auto (Bld) [Volum e fraction]on 02-11-2022 Hematocrit (Bld) [Volume fraction] 50.1 % 40-54 [facility] Work Phone: INR in Blood by Coagulation assayon 02-11-2022 INR Coag (Bld) [Relative time] 1.2 {INR} [facility] Work Phone: Laboratory - Chemistry and C hemistry - challengeon 02-11-2022 CO2 [Moles/Vol] 27.0 mmol/L 21.0-32.0 [facility] Work Phone: Urea nitrogen/Creatinine [Mass ratio] 18.9 mg/mg 10-20 [facility] Work Phone: Laboratory - Coagulationon 0 02-11-2022 aPTT Coag (Bld) [Time] 32.9 s 24.1-36.2 [facility] Work Phone: PT Coag (PPP) [Time] 14.4 s 11.7-14.9 [facility] Work Phone: Laboratory - Hematology and Cell countson 02-11-2022 Erythrocyte distribution width (RBC) [Entitic vol] 44.3 fL 35.1-43.9 [facility] Work Phone: Erythrocyte distribution width (RBC) [Ratio] 13.8 % 11.6-14.6 [facility] Work Phone: Immature granulocytes/100 WBC (Bld) 0.400 % 0.0-0.9 [facility] Work Phone: Comment on above: IG% - Immature Granu locytes (promyelocytes, myelocytes and metamyelocytes) > 1% indicates that a LEFT SHIFT is Present. MCH (RBC) [Entitic mass] 28.9 pg 27.0-32.0 [facility] Work Phone: Nucleated RBC/100 WBC (Bld) [Ratio] 0 % 0-5 [facility] Work Phone: MCHC Auto (RBC) [Mass/Vol]on 02-11-2022 MCHC (RBC) [Mass/Vol] 33.1 g/dL 32-36 [facility] Work Phone: No Panel Informationon 02-11 Estimated Creatinine Clearance Calc 99.40 ml/min [facility] Work Phone: Estimated GFR (MDRD) Amer 112 mL/min >60 [facility] Work Phone: Comment on above: GFR Calc Estimated GFR (MDRD) Non-Af Amer 92 mL/min >60 [facility] Work Phone: Comment on above: Non- GFR Calc Platelets bldon 02-11-2022 Platelets (Bld) [#/Vol] 299 10*3/uL 150-450 [facility] Work Phone: Serum or plasma calcium toño urement (mass/volume)on 02-11-2022 Calcium [Mass/Vol] 9.1 mg/dL 8.5-10.1 [facility] Work Phone: Serum or plasma creatinine m easurement (mass/volume)on 02-11-2022 Creatinine [Mass/Vol] 0.90 mg/dL 0.70-1.30 [facility] Work Phone: Comment on above: The validity of the calculated GFR & GFRAA in patients over 70 years has not been determined. Clinical correlation is essential. Serum or plasma urea nitroge n measurement (mass/volume)on 02-11-2022 Urea nitrogen [Mass/Vol] 17 mg/dL 7-18 [facility] Work Phone: Thin prep Papanicolaou smear with manual screeningon 02-11-2022 Thin prep Papanicolaou smear with manual screening 7 5-15 [facility] Work Phone: CT LUNG SCREEN WO IVCONon CT LUNG SCREEN WO IVCON * * *Final Report* * * DATE OF EXAM: Dec 16 2021 4:18PM [facility] [place] [address] - CT LUNG SCREEN WO IVCON / PROCEDURE REASON: Z12.2-Encounter for screening for malignant neoplasm of respiratory organs * * * * Physician Interpretation * * * * EXAMINATION: CHEST CT WITHOUT CONTRAST (LOW-DOSE CT LUNG CANCER SCREENING PROTOCOL) CLINICAL HISTORY: Lung cancer LDCT screening ? absence of signs or symptoms of lung cancer. Nicotine dependence (cigarettes). Baseline (initial) Technique: Spiral CT acquisition of the chest from the thoracic inlet to the upper abdomen without contrast. MQ: [id number] Patient characteristics: * Yaid-db-Vvqpt: 1965; Age at exam: 56 years * Gender: Male * Lung Disease: Asymptomatic (no signs or symptoms of lung disease) * Number of Pack Years: 84 * Current smoker (=0) or Number of Years since Quit: 0 * Ordering provider and NPI: SARITA PAYNE [id number] * Interpreting radiologist and NPI: Corin [id number] Exam acquisition parameters: * Exam Date: 12/16/2021 4:18 PM * Site: [facility] * * CT System Fire Sprinkler Inspector: Iptivia * CT System Model: Dual Source * Tube Current-Time (mA-sec): 40 * Peak Voltage (kV): 120V * Scan Time (sec): 5.35 * Scan Volume (z-length, cm): 28.00 * Pitch: 1.0 * Slice Thickness (mm): 1.5 * CT Dose-Length Product: 147 mGy*cm * CT Dose Index: 4.71mGy * CT Dose Reduction Method: mAs-kVp adjusted based on patient size-age COMPARISON: CT chest dated 07/18/2012 RESULT: Are nodules present? Yes, 1-5 nodules If No, go to IMPRESSION. If yes, proceed with characterization of the FIVE largest nodules. Nodule 1: This Solid nodule is located in the Left Upper Lobe on slice number 51 with an average diameter of 3.0 mm (3.1 mm x 2.9 mm). Nodule 2: This Solid nodule is located in the Left Upper Lobe on slice number 117 with an average diameter of 2.3 mm (2.7 mm x 1.8 mm). Other lung nodule comments: None Other findings: The central airways are patent without evidence of endobronchial lesion. Upper lobe predominant centrilobular emphysema with diffuse bronchial wall thickening is seen. There is mild diffuse bronchial wall thickening. Upper lobe predominant centrilobular groundglass nodules likely represent respiratory bronchiolitis. No acute focal lung consolidation is seen. Bibasilar dependent atelectasis is present. There is no pleural effusion or pneumothorax. No enlarged supraclavicular, axillary, mediastinal or hilar lymph nodes are seen. The aorta and main pulmonary artery are normal in course and caliber. The heart size is normal. There is no pericardial effusion. The thyroid gland is unremarkable. The esophagus is nondilated. The soft tissues of the chest wall are unremarkable. The visible portion of the upper abdomen is unremarkable. No destructive bone lesion is seen. Degenerative changes are seen in the thoracic spine. Emphysema: Mild (5-25%), Centrilobular, Upper lobe Coronary Artery Calcifications: Circumflex None; Left Anterior Descending None; Right Coronary None Periodontal Assistant (topogram) images: No additional findings. IMPRESSION: LungRADS category: 2 LungRADS modifier: None LungRADS 0 reason: n/a Recommendations: Continue annual screening with LDCT in 12 months. Other actionable findings: Reference: [employer]. Lung CT Screening Reporting and Data System (Lung-RADS). Available at: http://www.acr.org/Quality -Safety/Resources/LungRADS Talent Engineer: MARGUERITE Transcribe Date/Time: Dec 16 2021 4:46P Dictated by : MADELIN FERNANDO MD This examination was interpreted and the report reviewed and electronically signed by: MADELIN FERNANDO MD on Dec 16 2021 5:06PM EST [id number] [facility] Vital Signs Date Time Vital Sign Value Performing Clinician Facility 04-24-2025 11:13-0400 Body mass index (BMI) [Ratio] 43.86 kg/m2 Kaushik Seals MD Work Phone: [facility] 04-24-2025 11:130400 Body weight 146.7 kg Kaushik Seals MD Work Phone: [facility] 04-24-2025 11:13-0400 Diastolic blood pressure 88 mm[Hg] Kaushik Seals MD Work Phone: [facility] 04-24-2025 11:13-0400 Heart rate 88 /min Kaushik Seals MD Work Phone: [facility] 04-24-2025 11:13-0400 Respiratory rate 18 /min Kaushik Seals MD Work Phone: [facility] 04-24-2025 11:13-0400 SaO2% (BldA) [Mass fraction] 95 % Kaushik Seals MD Work Phone: [facility] 04-24-2025 11:13-0400 Systolic blood pressure 138 mm[Hg] Kaushik Seals MD Work Phone: [facility] 02-06-2025 12:58-0400 Body mass index (BMI) [Ratio] 43.59 kg/m2 Jillian Click SENIOR CORPORATE STRATEGY MANAGER.DIRECTOR HAIR Work Phone: [facility] 02-06-2025 12:58-0400 Body weight 145.79 kg Jillian Click SENIOR CORPORATE STRATEGY MANAGER.DIRECTOR HAIR Work Phone: [facility] 02-06-2025 12:58-0400 Diastolic blood pressure 85 mm[Hg] Jillian Click SENIOR CORPORATE STRATEGY MANAGER.DIRECTOR HAIR Work Phone: [facility] 02-06-2025 12:58-0400 Heart rate 83 /min Jillian Click SENIOR CORPORATE STRATEGY MANAGER.DIRECTOR HAIR Work Phone: [facility] 02-06-2025 12:58-0400 SaO2% (BldA) [Mass fraction] 94 % Jillian Click SENIOR CORPORATE STRATEGY MANAGER.DIRECTOR HAIR Work Phone: [facility] 02-06-2025 12:58-0400 Systolic blood pressure 141 mm[Hg] Jillian Click SENIOR CORPORATE STRATEGY MANAGER.DIRECTOR HAIR Work Phone: [facility] 01-16-2025 11:48-0400 Body mass index (BMI) [Ratio] 43.67 kg/m2 Micky Miguel SENIOR CORPORATE STRATEGY MANAGER.DIRECTOR HAIR Work Phone: [facility] 01-16-2025 11:48-0400 Body weight 146.06 kg Micky Miguel SENIOR CORPORATE STRATEGY MANAGER.DIRECTOR HAIR Work Phone: [facility] 01-16-2025 11:48-0400 Diastolic blood pressure 92 mm[Hg] Micky Miguel SENIOR CORPORATE STRATEGY MANAGER.DIRECTOR HAIR Work Phone: [facility] 01-16-2025 11:48-0400 Heart rate 80 /min Micky Miguel SENIOR CORPORATE STRATEGY MANAGER.DIRECTOR HAIR Work Phone: [facility] 01-16-2025 11:48-0400 Respiratory rate 20 /min Micky Miguel SENIOR CORPORATE STRATEGY MANAGER.DIRECTOR HAIR Work Phone: [facility] 01-16-2025 11:48-0400 SaO2% (BldA) [Mass fraction] 94 % Micky Hoffil SENIOR CORPORATE STRATEGY MANAGER.DIRECTOR HAIR Work Phone: [facility] 01-16-2025 11:48-0400 Systolic blood pressure 140 mm[Hg] Micky Miguel SENIOR CORPORATE STRATEGY MANAGER.DIRECTOR HAIR Work Phone: [facility] 12-07-2024 00:20-0400 Body temperature 98 [degF] Dr. Kaushik Seals MD Work Phone: [facility] 12-07-2024 00:20-0400 Diastolic blood pressure 74 mm[Hg] Dr. Kaushik Seals MD Work Phone: [facility] 12-07-2024 00:20-0400 Heart rate 81 /min Dr. Kaushik Seals MD Work Phone: [facility] 12-07-2024 00:20-0400 Respiratory rate 22 /min Dr. Kaushik Seals MD Work Phone: [facility] 12-07-2024 00:20-0400 SaO2% (BldA) [Mass fraction] 93 % Dr. Kaushik Seals MD Work Phone: 2(363)163-404972 [place] [address] 12-07-2024 00:20-0400 Systolic blood pressure 124 mm[Hg] Dr. Kaushik Seals MD Work Phone: 2(442)480-204472 [place] [address] 12-06-2024 20:20-0400 Body height 185.[address] Kaushik Seals MD Work Phone: 1(175)401-345775 [place] [address] 12-06-2024 20:20-0400 Body mass index (BMI) [Ratio] 42.8 kg/m2 Dr. Kaushik Seals MD Work Phone: 9(883)668-238972 [place] [address] 12-06-2024 20:20-0400 Body weight 147.[address] Kaushik Seals MD Work Phone: [facility] 11-03-2024 13:05-0400 Body mass index (BMI) [Ratio] 44.76 kg/m2 Georgie Barreto MD Work Phone: [facility] 11-03-2024 13:05-0400 Body weight 149.69 kg Georgie Barreto MD Work Phone: [facility] 11-03-2024 13:05-0400 Diastolic blood pressure 83 mm[Hg] Georgie Barreto MD Work Phone: [facility] 11-03-2024 13:05-0400 Heart rate 78 /min Georgie Barreto MD Work Phone: [facility] 11-03-2024 13:05-0400 SaO2% (BldA) [Mass fraction] 95 % Georgie Barreto MD Work Phone: [facility] 11-03-2024 13:05-0400 Systolic blood pressure 152 mm[Hg] Georgie Barreto MD Work Phone: [facility] 10-18-2024 13:18-0500 Body mass index (BMI) [Ratio] 44.85 kg/m2 Shayeamrita Noelhof SENIOR CORPORATE STRATEGY MANAGER.DIRECTOR HAIR Work Phone: [facility] 10-18-2024 13:18-0500 Body weight 150 kg Shayeamrita Noelhof SENIOR CORPORATE STRATEGY MANAGER.DIRECTOR HAIR Work Phone: [facility] 10-18-2024 13:18-0500 Diastolic blood pressure 88 mm[Hg] Shaye Noelhof SENIOR CORPORATE STRATEGY MANAGER.DIRECTOR HAIR Work Phone: [facility] 10-18-2024 13:18-0500 Heart rate 79 /min Shaye Noelhof SENIOR CORPORATE STRATEGY MANAGER.DIRECTOR HAIR Work Phone: [facility] 10-18-2024 13:18-0500 Respiratory rate 16 /min Shaye Noelhof SENIOR CORPORATE STRATEGY MANAGER.DIRECTOR HAIR Work Phone: [facility] 10-18-2024 13:18-0500 SaO2% (BldA) [Mass fraction] 93 % Shaye Noelhof SENIOR CORPORATE STRATEGY MANAGER.DIRECTOR HAIR Work Phone: [facility] 10-18-2024 13:18-0500 Systolic blood pressure 140 mm[Hg] Shaye Noelhof SENIOR CORPORATE STRATEGY MANAGER.DIRECTOR HAIR Work Phone: [facility] 04-11-2024 14:24-0400 Diastolic blood pressure 70 mm[Hg] Micky Miguel SENIOR CORPORATE STRATEGY MANAGER.DIRECTOR HAIR Work Phone: [facility] 04-11-2024 14:24-0400 Heart rate 86 /min Micky Miguel SENIOR CORPORATE STRATEGY MANAGER.DIRECTOR HAIR Work Phone: [facility] 04-11-2024 14:24-0400 SaO2% (BldA) [Mass fraction] 96 % Micky Miguel SENIOR CORPORATE STRATEGY MANAGER.DIRECTOR HAIR Work Phone: [facility] 04-11-2024 14:24-0400 Systolic blood pressure 160 mm[Hg] Micky Miguel SENIOR CORPORATE STRATEGY MANAGER.DIRECTOR HAIR Work Phone: [facility] 03-07-2024 16:01-0400 Body mass index (BMI) [Ratio] 42.02 kg/m2 Kaushik Seals MD Work Phone: [facility] 03-07-2024 16:01-0400 Body weight 140.52 kg Kaushik Seals MD Work Phone: [facility] 03-07-2024 16:01-0400 Diastolic blood pressure 80 mm[Hg] Kaushik Seals MD Work Phone: [facility] 03-07-2024 16:01-0400 Heart rate 97 /min Kaushik Seals MD Work Phone: [facility] 03-07-2024 16:01-0400 Respiratory rate 16 /min Kaushik Seals MD Work Phone: [facility] 03-07-2024 16:01-0400 SaO2% (BldA) [Mass fraction] 93 % Kaushik Seals MD Work Phone: [facility] 03-07-2024 16:01-0400 Systolic blood pressure 138 mm[Hg] Kaushik Seals MD Work Phone: [facility] 07-07-2023 14:15-0500 Body height 182.9 cm Pacc 1 Work Phone: [facility] 07-07-2023 14:15-0500 Body temperature 98.29 [degF] Pacc 1 Work Phone: [facility] 07-07-2023 14:15-0500 Body weight 132.45 kg Pacc 1 Work Phone: [facility] 07-07-2023 14:15-0500 Diastolic blood pressure 80 mm[Hg] Pacc 1 Work Phone: [facility] 07-07-2023 14:15-0500 Heart rate 74 /min Pacc 1 Work Phone: [facility] 07-07-2023 14:15-0500 Respiratory rate 20 /min Pacc 1 Work Phone: [facility] 07-07-2023 14:15-0500 SaO2% (BldA) [Mass fraction] 93 % Pacc 1 Work Phone: [facility] 07-07-2023 14:15-0500 Systolic blood pressure 138 mm[Hg] Pacc 1 Work Phone: [facility] 06-24-2023 19:08-0400 Diastolic blood pressure 74 mm[Hg] [facility] 06-24-2023 19:08-0400 Heart rate 76 /min [facility] 06-24-2023 19:08-0400 Respiratory rate 21 /min [facility] 06-24-2023 19:08-0400 SaO2% (BldA) [Mass fraction] 93 % [facility] 06-24-2023 19:08-0400 Systolic blood pressure 150 mm[Hg] [facility] 06-24-2023 16:42-0400 Body height 182.88 cm [facility] 06-24-2023 16:42-0400 Body mass index (BMI) [Ratio] 38.8 kg/m2 [facility] 06-24-2023 16:42-0400 Body temperature 98 [degF] [facility] 06-24-2023 16:42-0400 Body weight 129.9 kg [facility] 03-09-2023 13:08-0400 Body height 182.9 cm Anh Damien PA-C Work Phone: [facility] 03-09-2023 13:08-0400 Body temperature 97.5 [degF] Anh Damien PA-C Work Phone: [facility] 03-09-2023 13:08-0400 Body weight 130.46 kg Anh Damien PA-C Work Phone: [facility] 03-09-2023 13:08-0400 Diastolic blood pressure 80 mm[Hg] Anh Fitzgerald PA-C Work Phone: [facility] 03-09-2023 13:08-0400 Heart rate 78 /min Anh Quezada PA-C Work Phone: [facility] 03-09-2023 13:08-0400 SaO2% (BldA) [Mass fraction] 96 % Anh Fitzgerald PA-C Work Phone: [facility] 03-09-2023 13:08-0400 Systolic blood pressure 142 mm[Hg] Anh Quezada PA-C Work Phone: [facility] 03-05-2023 10:18-0400 Body weight 130.18 kg Kaushik Seals MD Work Phone: [facility] 03-05-2023 10:18-0400 Diastolic blood pressure 80 mm[Hg] Kaushik Seals MD Work Phone: [facility] 03-05-2023 10:18-0400 Heart rate 74 /min Kaushik Seals MD Work Phone: [facility] 03-05-2023 10:18-0400 Respiratory rate 18 /min Kaushik Seals MD Work Phone: [facility] 03-05-2023 10:18-0400 Systolic blood pressure 150 mm[Hg] Kaushik Seals MD Work Phone: [facility] 12-23-2022 10:27-0400 Body height 182.9 cm Sarita Payne APRN.DIRECTOR HAIR Work Phone: [facility] 12-23-2022 10:27-0400 Body weight 123.38 kg Sarita Payne APRN.DIRECTOR HAIR Work Phone: [facility] 12-23-2022 10:27-0400 Diastolic blood pressure 86 mm[Hg] Sarita Payne APRN.DIRECTOR HAIR Work Phone: [facility] 12-23-2022 10:27-0400 Heart rate 84 /min Sarita Payne APRN.DIRECTOR HAIR Work Phone: [facility] 12-23-2022 10:27-0400 SaO2% (BldA) [Mass fraction] 96 % Sarita Payne APRN.DIRECTOR HAIR Work Phone: [facility] 12-23-2022 10:27-0400 Systolic blood pressure 141 mm[Hg] Sarita Payne APRALEX Work Phone: [facility] 11-19-2022 17:11-0400 Diastolic blood pressure 91 mm[Hg] [facility] 11-19-2022 17:11-0400 Heart rate 62 /min [facility] 11-19-2022 17:11-0400 Respiratory rate 18 /min [facility] 11-19-2022 17:11-0400 SaO2% (BldA) [Mass fraction] 97 % [facility] 11-19-2022 17:11-0400 Systolic blood pressure 110 mm[Hg] [facility] 11-19-2022 14:14-0400 Body height 182.88 cm [facility] 11-19-2022 14:14-0400 Body mass index (BMI) [Ratio] 34.7 kg/m2 [facility] 11-19-2022 14:14-0400 Body temperature 97.8 [degF] [facility] 11-19-2022 14:14-0400 Body weight 116 kg [facility] 09-05-2022 10:44-0500 Body weight 121.93 kg Kaushik Seals MD Work Phone: [facility] 09-05-2022 10:44-0500 Diastolic blood pressure 80 mm[Hg] Kaushik Seals MD Work Phone: [facility] 09-05-2022 10:44-0500 Heart rate 80 /min Kaushik Seals MD Work Phone: [facility] 09-05-2022 10:44-0500 Respiratory rate 20 /min Kaushik Seals MD Work Phone: [facility] 09-05-2022 10:44-0500 Systolic blood pressure 116 mm[Hg] Kaushik Seals MD Work Phone: [facility] 02-11-2022 07:37-0400 Body height 182.88 cm [facility] Work Phone: 02-11-2022 07:37-0400 Body mass index (BMI) [Ratio] 39.3 kg/m2 [facility] Work Phone: 02-11-2022 07:37-0400 Body temperature 97.9 [degF] [facility] Work Phone: 02-11-2022 07:37-0400 Body weight 131.54 kg [facility] Work Phone: 02-11-2022 07:37-0400 Diastolic blood pressure 112 mm[Hg] [facility] Work Phone: 02-11-2022 07:37-0400 Heart rate 85 /min [facility] Work Phone: 02-11-2022 07:37-0400 Respiratory rate 14 /min [facility] Work Phone: 02-11-2022 07:37-0400 SaO2% (BldA) [Mass fraction] 95 % [facility] Work Phone: 02-11-2022 07:37-0400 Systolic blood pressure 162 mm[Hg] [facility] Work Phone: Encounters Encounter Date Encounter Type Care Provider Facility Start: 07-02-2025 ambulatory KAUSHIK SEALS Facil ity:[facility] Start: 06-24-2025 End: 06-24-2025 Emergency department patient visit Lisa Cobian Facility:[facility] Start: 06-15-2025 End: 06-15-2025 Emergency department patient visit Kaushik Seals Facility:[facility] Start: 05-21-2025 End: 05-21-2025 ambulatory KAUSHIK SEALS Facility:[facility] Start: 04-30-2025 End: 04-30-2025 Telephone encounter Marky [facility] Work Phone: [facility] Comment on above: Missed Appointment ( Primary care reschedule) Start: 04-24-2025 End: 04-24-2025 ambulatory KAUSHIK SEALS Facility:[facility] Start: 04-24-2025 End: 04-24-2025 Office outpatient visit 25 minutes Kaushik Seals MD Work Phone: [facility] [place] Comment on above: Essential hypertensi on (Primary Dx); Venous insufficiency; Tobacco use disorder; Type 2 diabetes, controlled, with neuropathy (HCC); Essential hypertension with goal blood pressure less than 140/90; Acquired hypothyroidism; Right knee pain, unspecified chronicity; Type 2 diabetes mellitus with hyperglycemia, unspecified whether tree pruner insulin use (HCC); Vitamin D deficiency Start: 04-09-2025 End: 04-09-2025 ambulatory KAUSHIK SEALS Facility:[facility] Start: 04-09-2025 End: 04-09-2025 [facility] Comment on above: Type 2 diabetes, con trolled, with neuropathy (HCC) (Primary Dx) Start: 04-09-2025 End: 04-09-2025 Telemedicine consultation with patient Marky Scott [facility] Work Phone: [facility] Start: 04-06-2025 End: 04-09-2025 Telephone encounter Kaushik Seals MD Work Phone: [facility] [place] Comment on above: Insurance Authorizat ion Start: 03-30-2025 End: 04-02-2025 Refill Kaushik Seals MD Work Phone: [facility] [place] Comment on above: Refill Request Start: 03-12-2025 End: 03-12-[facility] Work Phone: [facility] Comment on above: Type 2 diabetes, con trolled, with neuropathy (HCC) (Primary Dx); Tobacco use disorder Start: 02-06-2025 End: 02-06-2025 Telephone encounter Micky Cabezas APRN.CNP Work Phone: [facility] [place] Comment on above: Orders Start: 02-06-2025 End: 02-06-2025 Office outpatient visit 15 minutes Jillian Wright APRN.CNP Work Phone: [facility] Comment on above: Stage 3 severe COPD by GOLD classification (HCC) (Primary Dx); Cigarette smoker; Lung nodules; Nocturnal hypoxia; Morbid obesity (HCC) Start: 02-06-2025 End: 02-06-2025 ambulatory JILLIAN WRIGHT Facility:[facility] Start: 02-05-2025 End: 02-05-2025 ambulatory MICKY CABEZAS Facility:[facility] Start: 02-05-2025 End: 02-05-2025 Patient encounter procedure Marky Scott [facility] Work Phone: [facility] Comment on above: Type 2 diabetes, con trolled, with neuropathy (HCC) (Primary Dx); Medication management Start: 02-05-2025 End: 02-05-2025 Telemedicine consultation with patient Marky Scott [facility] Work Phone: [facility] Start: 01-18-2025 End: 02-22-2025 Telephone encounter Naomy GARC[facility] Comment on above: New Primary Care Pha rmacy Appt. Start: 01-17-2025 End: 01-23-2025 Follow-up encounter Micky Cabezas APRN.CNP Work Phone: [facility] [place] Comment on above: Results Start: 01-16-2025 End: 01-16-2025 Office outpatient visit 25 minutes Micky Cabezas APRN.CNP Work Phone: [facility] [place] Comment on above: Chronic obstructive pulmonary disease, unspecified COPD type (HCC) (Primary Dx); Type 2 diabetes, controlled, with neuropathy (HCC); Gastroesophageal reflux disease, unspecified whether esophagitis present; Acquired hypothyroidism; Embolism and thrombosis (HCC); Essential hypertension; Hyperlipidemia, mixed; Centrilobular emphysema (HCC); BPPV (benign paroxysmal positional vertigo), unspecified laterality; Chronic pain syndrome; DDD (degenerative disc disease), lumbar Start: 01-16-2025 End: 01-16-2025 ambulatory SHAYE DOBBINS Facility:[facility] Start: 12-06-2024 End: 12-07-2024 Emergency department patient visit Dr. Kaushik Seals MD Work Phone: -Emergency Department Work Phone: Start: 11-03-2024 End: 11-03-2024 ambulatory [facility] Work Phone: [facility] Comment on above: Spirometry Start: 11-03-2024 End: 11-03-2024 Patient encounter procedure [facility] Work Phone: [facility] Comment on above: Stage 3 severe COPD by GOLD classification (HCC) (Primary Dx); Cigarette smoker; Lung nodules; Morbid obesity (HCC) Start: 10-18-2024 End: 10-18-2024 Office outpatient visit 40 minutes Shaye Dobbins APRN.CNP Work Phone: [facility] Comment on above: COPD with acute exac erbation (HCC) (Primary Dx); Chronic obstructive pulmonary disease, unspecified COPD type (HCC); Centrilobular emphysema (HCC); Tobacco use disorder; Fatigue, unspecified type; Essential hypertension; Hyperlipidemia, mixed; Type 2 diabetes, controlled, with neuropathy (HCC); BPPV (benign paroxysmal positional vertigo), unspecified laterality; Embolism and thrombosis ([facility]); Acquired hypothyroidism; Chronic pain syndrome; Obstructive sleep apnea; Gastroesophageal reflux disease, unspecified whether esophagitis present; Venous insufficiency; DDD (degenerative disc disease), lumbar; Encounter for immunization; Screening for colon cancer; Screening for prostate cancer Start: 10-18-2024 End: 10-18-2024 ambulatory SHAYE DOBBINS Facility:[facility] Start: 07-21-2024 End: 07-21-2024 Emergency department patient visit Farrukh Venegas Facility:[facility] Start: 05-02-2024 End: 05-02-2024 ambulatory Karissa Garcia PT [facility] Comment on above: Dizziness (Primary D x); BPPV (benign paroxysmal positional vertigo), unspecified laterality Start: 04-12-2024 End: 04-12-2024 Telephone encounter Micky Cabezas APRN.CNP Work Phone: [facility] Comment on above: Results Start: 04-11-2024 End: 04-11-2024 Office outpatient visit 25 minutes Micky Cabezas APRN.CNP Work Phone: [facility] Comment on above: BPPV (benign paroxys mal positional vertigo), unspecified laterality (Primary Dx); Dizziness; Essential hypertension Start: 04-11-2024 End: 04-11-2024 Telephone encounter Kaushik Seals MD Work Phone: [facility] Comment on above: Dizziness Start: 03-13-2024 Refill Kaushik lagunas MD Work Phone: [facility] Comment on above: Refill Request Start: 03-10-2024 Telephone encounter Shaye Pope nhof SENIOR CORPORATE STRATEGY MANAGER.DIRECTOR HAIR Work Phone: [facility] Comment on above: Results (Labs ) Start: 03-07-2024 End: 03-07-2024 Patient encounter procedure Kaushik Seals MD Work Phone: [facility] Comment on above: Type 2 diabetes, con trolled, with neuropathy (HCC) (Primary Dx); Essential hypertension; Chronic pain syndrome; Chronic pulmonary embolism without acute cor pulmonale, unspecified pulmonary embolism type (HCC); Obstructive sleep apnea; Tobacco use disorder; Gastroesophageal reflux disease, unspecified whether esophagitis present; Acquired hypothyroidism; Obesity, Class II, BMI 35-39.9; Finger numbness Start: 07-12-2023 Telephone encounter Feliciano Flanagan [facility] Surgery Comment on above: GI PREOP CALL Start: 07-08-2023 Refill Armin diaz MD Work Phone: General Surgery Start: 07-07-2023 End: 07-07-2023 Preprocedural examination done [facility] [place] 1 Work Phone: [facility] Work Phone: Start: 07-07-2023 End: 07-07-2023 PAT [facility] [place] 1 Work Phone: Pre Anesthesia Comment on above: Pre-operative examin ation (Primary Dx); Acquired hypothyroidism; Mild intermittent asthma without complication; Essential hypertension; Factor V Leiden (HCC); Obesity, Class II, BMI 35-39.9; Obstructive sleep apnea; Type 2 diabetes, controlled, with neuropathy (HCC); Venous insufficiency; Centrilobular emphysema (HCC); Tobacco use disorder; Embolism and thrombosis (HCC); Gastroesophageal reflux disease, unspecified whether esophagitis present; Family history of malignant hypertension Medication Problem Start: 06-24-2023 End: 06-24-2023 Emergency department patient visit [facility] Work Phone: Start: 03-09-2023 Telephone encounter Kaushik segovia MD Work Phone: [facility] Comment on above: Results Start: 03-09-2023 End: 03-09-2023 Patient encounter procedure Anh Quezada PA-C Work Phone: General Surgery Comment on above: Special screening fo r malignant neoplasms, colon (Primary Dx); History of colonic polyps; Factor V Leiden (HCC); Requires continuous at home supplemental oxygen; Embolism and thrombosis (HCC); Tobacco use Start: 03-08-2023 Telephone encounter Kaushik segovia MD Work Phone: [facility] [place] Comment on above: Insurance Authorizat ion Start: 03-05-2023 End: 03-05-2023 Patient encounter procedure Kaushik Seals MD Work Phone: [facility] Comment on above: Type 2 diabetes, con trolled, with neuropathy (HCC) (Primary Dx); Acute pulmonary embolism, unspecified pulmonary embolism type, unspecified whether acute cor pulmonale present (HCC); Venous insufficiency; Cellulitis of lower extremity, unspecified laterality; Special screening for malignant neoplasms, colon; Need for vaccination; Primary hypercoagulable state (HCC); Acquired hypothyroidism; Essential hypertension; History of colonic polyps Start: 12-23-2022 Telephone encounter Zoraida Lund RN Pulmonary Medicine Comment on above: FILM REQ MOUSTAPHA SIMMONS Start: 12-23-2022 End: 12-23-2022 Patient encounter procedure Sarita Payne APRN.DIRECTOR HAIR Work Phone: Pulmonary Medicine Comment on above: Encounter for screen ing for malignant neoplasm of lung (Primary Dx); Smoker; Asthma with chronic obstructive pulmonary disease (COPD) (HCC); Lung nodules; Obesity, Class II, BMI 35-39.9 Start: 12-15-2022 Telephone encounter Kaushik segovia MD Work Phone: [facility] Comment on above: Forms ([employer]) Start: 11-19-2022 End: 11-19-2022 [facility] Start: 10-08-2022 ambulatory Jocelyn Baker er SENIOR CORPORATE STRATEGY MANAGER.DIRECTOR HAIR Work Phone: Pulmonary Medicine Comment on above: Tobacco use current (Primary Dx) Start: 10-08-2022 E-mail encounter fro m caregiver Jocelyn Segalpster SENIOR CORPORATE STRATEGY MANAGER.DIRECTOR HAIR Work Phone: [facility] Start: 09-07-2022 Telephone encounter Kaushik segovia MD Work Phone: [facility] Comment on above: Results Start: 09-05-2022 End: 09-05-2022 Patient encounter procedure Kaushik Seals MD Work Phone: [facility] Comment on above: Essential hypertensi on (Primary Dx); Acute pulmonary embolism, unspecified pulmonary embolism type, unspecified whether acute cor pulmonale present (HCC); Venous insufficiency; Cellulitis of lower extremity, unspecified laterality; Type 2 diabetes, controlled, with neuropathy ([facility]); Chronic obstructive pulmonary disease, unspecified COPD type (HCC); Acquired hypothyroidism; Centrilobular emphysema (HCC); DDD (degenerative disc disease), lumbar; Chronic pain syndrome; BPPV (benign paroxysmal positional vertigo), unspecified laterality; Acute right ankle pain Start: 09-04-2022 Refill Kaushik lagunas MD Work Phone: [facility] Comment on above: Refill Request Start: 04-30-2022 Telephone encounter Kaushik segoiva MD Work Phone: [facility] Comment on above: Electronic Communica tion (Medical Adherence form) Start: 02-12-2022 Refill Kaushik lagunas MD Work Phone: [facility] Comment on above: Refill Request Start: 02-11-2022 End: 02-11-2022 Emergency department patient visit [facility] Start: 12-17-2021 Telephone encounter Sarita Payne SENIOR CORPORATE STRATEGY MANAGER.DIRECTOR HAIR Work Phone: Pulmonary Medicine Comment on above: Results Start: 12-16-2021 End: 12-16-2021 Subsequent hospital visit by physician [facility] Comment on above: Encounter for screen ing for malignant neoplasm of respiratory organs [Z12.2] Start: 12-15-2021 Telephone encounter Kaushik segovia MD Work Phone: [facility] [place] Comment on above: Forms ([employer]) Start: 12-08-2021 ambulatory Micky Cabezas SENIOR CORPORATE STRATEGY MANAGER.DIRECTOR HAIR Work Phone: [facility] [place] Comment on above: PHMA/Care Gap Outrea ch Start: 11-21-2021 Refill Kaushik lagunas MD Work Phone: [facility] [place] Comment on above: Refill Request Start: 11-10-2021 Refill Susan Mora MD Work Phone: Gastroenterology Comment on above: Refill Request (pril osec) Refill Request Procedures Date Procedure Procedure Detail Performing Clinician Start: 12-06-2024 CT of head without contrast Dr. Kaushik Seals MD Work Phone: Start: 12-06-2024 X-ray of chest, PA a nd lateral views Dr. Kuashik Seals MD Work Phone: Start: 12-06-2024 SARS-CoV-2, Influenz a & RSV (PCR) Dr. Kaushik Seals MD Work Phone: Start: 11-03-2024 Co diffusing capacity E wellington Barreto MD Work Phone: Start: 03-07-2024 Adult depression scr eening assessment Kaushik Seals MD Work Phone: Start: 06-24-2023 Plain chest X-ray Start: 11-19-2022 CT angiography of ch est with contrast Start: 11-19-2022 Plain chest X-ray Start: 12-16-2021 CT LUNG SCREEN WO IVCON Sarita Payne APRN.DIRECTOR HAIR Work Phone: Start: 02-19-2021 Adult depression scr eening assessment Kaushik Seals MD Work Phone: Start: 05-27-2015 Colonoscopy Kaushik cohn MD Work Phone: Plan of Treatment Date Care Activity Detail Author Start: 01-16-2030 Prostate specific antigen measurement Prostate Cancer Screening Discussion [facility] Start: 07-10-2029 Urine microalbumin profile [facility] Start: 04-24-2026 Annual PCP Team Pipeline Superintendent oumou Disease Visit Annual PCP Team Chronic Disease Visit [facility] Start: 04-24-2026 Hepatitis B surface antibody level LDL Cholesterol [facility] Start: 01-16-2026 Annual PCP Team Pipeline Superintendent oumou Disease Visit Annual PCP Team Chronic Disease Visit [facility] Start: 01-16-2026 Hepatitis B surface antibody level LDL Cholesterol [facility] Start: 10-18-2025 Annual PCP Team Pipeline Superintendent oumou Disease Visit Annual PCP Team Chronic Disease Visit [facility] Start: 08-08-2025 End: 08-08-2025 Patient encounter procedure Pulmonary Medicine Comment on above: 6 month f/u Start: 08-01-2025 End: 08-01-2025 Patient encounter procedure 08/01/2025 1:20 PM EST Office Visit [facility] [place] [address] [place], [place] [phone] Marsha Patel MD [address] [place], [place] [phone] establish care [facility] [place] Comment on above: establish care Start: 07-24-2025 Hemoglobin A1c measurement HbA1C [facility] Start: 07-23-2025 End: 07-23-2025 Patient encounter procedure 07/23/2025 1:00 PM EST Office Visit Orthopaedics [address] [place] [address] Abby Oshea PA-C [address] [place] [address] Right knee pain, unspecified chronicity [M25.561] Orthopaedics Comment on above: Right knee pain, uns pecified chronicity [M25.561] Start: 04-30-2025 End: 04-30-2025 Patient encounter procedure 04/30/2025 2:30 PM EDT [facility] [address] [place] [address] Marky Scott, [facility] [address] [place] [address] DM f/up [facility] Comment on above: DM f/up Start: 04-24-2025 End: 04-24-2025 Patient encounter procedure 04/24/2025 11:00 AM EDT Office Visit [facility] [address] [place] [address] Kaushik Seals MD [address] [place], [place] [address] 3 month follow up [facility] Comment on above: 3 month follow up Start: 04-23-2025 Influenza vaccination Influenza Vacc ine (#1) [facility] Start: 04-19-2025 End: 07-19-2025 25-hydroxyvitamin D3 [Mass/volume] in Serum or Plasma VITAMIN D 25 HYDROXY Lab Routine Vitamin D deficiency Expected: 04/19/2025, Expires: 07/19/2025 [facility] Comment on above: Expected: 04/19/2025 , Expires: 07/19/2025 Start: 04-19-2025 End: 07-19-2025 Comprehensive metabolic 2000 panel - Serum or Plasma COMPREHENSIVE METABOLIC PANEL Lab Routine Type 2 diabetes, controlled, with neuropathy (HCC) Essential hypertension Expected: 04/19/2025, Expires: 07/19/2025 [facility] Comment on above: Expected: 04/19/2025 , Expires: 07/19/2025 Start: 04-19-2025 End: 07-19-2025 Hemoglobin A1c in Blood HEMOGLOBIN A1C Lab Routine Type 2 diabetes, controlled, with neuropathy (HCC) Expected: 04/19/2025, Expires: 07/19/2025 [facility] Comment on above: Expected: 04/19/2025 , Expires: 07/19/2025 Start: 04-19-2025 End: 07-19-2025 Thyrotropin [Units/volume] in Serum or Plasma THYROID STIMULATING HORMONE Lab Routine Acquired hypothyroidism Expected: 04/19/2025, Expires: 07/19/2025 [facility] Work Phone: Comment on above: Expected: 04/19/2025 , Expires: 07/19/2025 Start: 04-19-2025 End: 07-19-2025 Thyroxine (T4) free [Mass/volume] in Serum or Plasma T4 FREE/FREE THYROXINE Lab Routine Acquired hypothyroidism Expected: 04/19/2025 (Approximate), Expires: 07/19/2025 [facility] Comment on above: Expected: 04/19/2025 (Approximate), Expires: 07/19/2025 Start: 04-18-2025 Hemoglobin A1c measurement HbA1C [facility] Start: 04-11-2025 Annual PCP Team Pipeline Superintendent oumou Disease Visit Annual PCP Team Chronic Disease Visit [facility] Start: 04-09-2025 End: 04-09-2025 Patient encounter procedure 04/09/2025 1:00 PM EDT [facility] [address] [place], [place] [id number] Marky Scott, [facility] [address] [place] [phone] DM f/up [facility] Comment on above: DM f/up Start: 04-02-2025 End: 04-02-2025 Patient encounter procedure 04/02/2025 11:30 AM EDT Office Visit Pulmonary Medicine [address] [place] [address], [place] [phone] Jocelyn Perez APRN.DIRECTOR HAIR [address] [place] [address] Stage 3 severe COPD by GOLD classification (HCC) [J44.9]; Cigarette smoker [F17.210] Pulmonary Medicine Comment on above: Stage 3 severe COPD by GOLD classification (HCC) [J44.9]; Cigarette smoker [F17.210] Start: 03-12-2025 End: 06-11-2025 Microalbumin/Creatinine [Mass Ratio] in Urine ALBUMIN/CREATININE RATIO, URINE Lab Routine Type 2 diabetes, controlled, with neuropathy ([facility]) Expected: 03/12/2025, Expires: 06/11/2025 [facility] Work Phone: Comment on above: Expected: 03/12/2025 , Expires: 06/11/2025 Start: 03-12-2025 End: 03-12-2025 Patient encounter procedure 03/12/2025 1:00 PM EDT [facility] [address] [place], [place] [address] Marky Scott, [facility] [address] [place] [phone] DM f/up [facility] Comment on above: DM f/up Start: 03-07-2025 Annual PCP Team Pipeline Superintendent oumou Disease Visit Annual PCP Team Chronic Disease Visit [facility] Start: 03-07-2025 Anxiety Screening Anxiety Screening [facility] Start: 03-07-2025 Depression Screening Depression Scre ening [facility] Start: 03-07-2025 Hepatitis B surface antibody level LDL Cholesterol [facility] Start: 03-07-2025 End: 06-06-2025 Lipid 1996 panel - Serum or Plasma LIPID PANEL, FASTING Lab Routine Type 2 diabetes, controlled, with neuropathy (HCC) Expected: 03/07/2025, Expires: 06/06/2025 [facility] Work Phone: Comment on above: Expected: 03/07/2025 , Expires: 06/06/2025 Start: 03-05-2025 End: 03-05-2025 Patient encounter procedure 03/05/2025 8:30 AM EDT Office Visit Pulmonary Medicine [address] [place] [address] Jocelyn Perez APRN.DIRECTOR HAIR [address] [place] [address] Stage 3 severe COPD by GOLD classification (HCC) [J44.9]; Cigarette smoker [F17.210] Pulmonary Medicine Comment on above: Stage 3 severe COPD by GOLD classification (HCC) [J44.9]; Cigarette smoker [F17.210] Start: 02-06-2025 End: 02-06-2025 Patient encounter procedure Pulmonary Medicine Comment on above: 3 month f/u Start: 02-05-2025 End: 02-05-2025 Patient encounter procedure 02/05/2025 2:00 PM EDT [facility] [address] [place] [address] Marky Scott, [facility] [address] [place] [phone] Dx: Type 2 diabetes, controlled, with neuropathy (HCC) [E11.40]-Patient can be reached at [phone] [facility] Comment on above: Dx: Type 2 diabetes, controlled, with neuropathy (HCC) [E11.40]-Patient can be reached at [phone] Start: 01-16-2025 End: 01-16-2025 Patient encounter procedure 01/16/2025 1:00 PM EDT Office Visit Family [facility] [address] [place], [place] [address] Micky Cabezas APRN.DIRECTOR HAIR [address] [place], [place] [phone] 3 month follow up Family [facility] Comment on above: 3 month follow up Start: 12-06-2024 [facility] Start: 12-06-2024 End: 12-06-2024 [facility] Start: 12-06-2024 Bacteria identified in Urine by Culture Urine Culture [facility] Start: 11-03-2024 End: 11-03-2024 Patient encounter procedure 11/03/2024 1:30 PM EDT Office Visit Pulmonary Medicine [address] [place] [address] Georgie Barreto MD [address] [place], [place] [phone] Dx: Chronic obstructive pulmonary disease, unspecified COPD type (HCC) [J44.9]; Centrilobular emphysema (HCC) [J43.2] Pulmonary Medicine Comment on above: Dx: Chronic obstruct ridge pulmonary disease, unspecified COPD type (HCC) [J44.9]; Centrilobular emphysema (HCC) [J43.2] Start: 11-03-2024 End: 11-03-2024 ambulatory [facility] Comment on above: Dx: Chronic obstruct ridge pulmonary disease, unspecified COPD type (HCC) [J44.9]; Centrilobular emphysema (HCC) [J43.2] Start: 10-26-2024 End: 10-26-2024 Patient encounter procedure 10/26/2024 11:30 AM EST Office Visit General Surgery [address] [place] [phone] Andria Baig APRN.DIRECTOR HAIR [address] [place] [address] Dx: Screening for colon cancer [Z12.11] General Surgery Comment on above: Dx: Screening for co dee cancer [Z12.11] Start: 10-18-2024 End: 01-17-2025 25-hydroxyvitamin D3 [Mass/volume] in Serum or Plasma VITAMIN D 25 HYDROXY Lab Routine Fatigue, unspecified type Expected: 10/18/2024, Expires: 01/17/2025 [facility] Comment on above: Expected: 10/18/2024 , Expires: 01/17/2025 Start: 10-18-2024 End: 01-17-2025 CBC W Auto Differential panel - Blood COMPLETE BLOOD COUNT AND DIFFERENTIAL Lab Routine Fatigue, unspecified type Expected: 10/18/2024, Expires: 01/17/2025 [facility] Work Phone: Comment on above: Expected: 10/18/2024 , Expires: 01/17/2025 Start: 10-18-2024 End: 01-17-2025 Cobalamin (Vitamin B12) [Mass/volume] in Serum or Plasma VITAMIN B12 Lab Routine Fatigue, unspecified type Expected: 10/18/2024, Expires: 01/17/2025 [facility] Comment on above: Expected: 10/18/2024 , Expires: 01/17/2025 Start: 10-18-2024 End: 01-17-2025 Comprehensive metabolic 2000 panel - Serum or Plasma COMPREHENSIVE METABOLIC PANEL Lab Routine Essential hypertension Expected: 10/18/2024, Expires: 01/17/2025 [facility] Comment on above: Expected: 10/18/2024 , Expires: 01/17/2025 Start: 10-18-2024 End: 01-17-2025 Ferritin [Mass/volume] in Serum or Plasma FERRITIN Lab Routine Fatigue, unspecified type Expected: 10/18/2024, Expires: 01/17/2025 [facility] Comment on above: Expected: 10/18/2024 , Expires: 01/17/2025 Start: 10-18-2024 End: 01-17-2025 Hemoglobin A1c in Blood HEMOGLOBIN A1C Lab Routine Type 2 diabetes, controlled, with neuropathy (HCC) Expected: 10/18/2024, Expires: 01/17/2025 [facility] Comment on above: Expected: 10/18/2024 , Expires: 01/17/2025 Start: 10-18-2024 End: 01-17-2025 Iron and Iron binding capacity panel - Serum or Plasma IRON AND TIBC Lab Routine Fatigue, unspecified type Expected: 10/18/2024, Expires: 01/17/2025 [facility] Comment on above: Expected: 10/18/2024 , Expires: 01/17/2025 Start: 10-18-2024 End: 01-17-2025 Lipid 1996 panel - Serum or Plasma LIPID PANEL BASIC Lab Routine Hyperlipidemia, mixed Expected: 10/18/2024, Expires: 01/17/2025 [facility] Comment on above: Expected: 10/18/2024 , Expires: 01/17/2025 Start: 10-18-2024 End: 01-17-2025 PSA/PROSTATE SPECIFIC ANTIGEN SCREENING PSA/PROSTATE SPECIFIC ANTIGEN SCREENING Lab Routine Screening for prostate cancer Expected: 10/18/2024, Expires: 01/17/2025 [facility] Comment on above: Expected: 10/18/2024 , Expires: 01/17/2025 Start: 10-18-2024 End: 01-17-2025 Thyrotropin [Units/volume] in Serum or Plasma THYROID STIMULATING HORMONE Lab Routine Acquired hypothyroidism Expected: 10/18/2024, Expires: 01/17/2025 [facility] Comment on above: Expected: 10/18/2024 , Expires: 01/17/2025 Start: 10-18-2024 End: 01-17-2025 Thyroxine (T4) free [Mass/volume] in Serum or Plasma T4 FREE/FREE THYROXINE Lab Routine Acquired hypothyroidism Expected: 10/18/2024, Expires: 01/17/2025 [facility] Comment on above: Expected: 10/18/2024 , Expires: 01/17/2025 Start: 09-07-2024 Annual PCP Team Pipeline Superintendent oumou Disease Visit Annual PCP Team Chronic Disease Visit [facility] Start: 09-07-2024 Covid-19 Vaccine () Covid-19 Vaccine () [facility] Comment on above: Postponed from 04/23 (Declined at this time) Start: 09-07-2024 Hepatitis B surface antibody level LDL Cholesterol [facility] Start: 09-05-2024 End: 09-05-2024 Patient encounter procedure 09/05/2024 1:40 PM EST Office Visit [facility] [place] [address] [place], [place] [address] Micky Cabezas APRN.DIRECTOR HAIR [address] [place], [place] [phone] follow up [facility] Comment on above: follow up Start: 08-23-2024 Medicare Advantage Annual Wellness Visit Medicare Advantage Annual Wellness Visit [facility] Start: 06-10-2024 End: 09-09-2024 Comprehensive metabolic 2000 panel - Serum or Plasma COMPREHENSIVE METABOLIC PANEL Lab Routine Type 2 diabetes mellitus without complication, without long-term current use of insulin (HCC) Expected: 06/10/2024, Expires: 09/09/2024 [facility] Work Phone: Comment on above: Expected: 06/10/2024 , Expires: 09/09/2024 Start: 06-10-2024 End: 09-09-2024 Hemoglobin A1c in Blood HEMOGLOBIN A1C Lab Routine Type 2 diabetes mellitus without complication, without long-term current use of insulin (HCC) Expected: 06/10/2024, Expires: 09/09/2024 [facility] Comment on above: Expected: 06/10/2024 , Expires: 09/09/2024 Start: 06-07-2024 Hemoglobin A1c measurement HbA1C [facility] Start: 06-05-2024 End: 06-05-2024 Patient encounter procedure 06/05/2024 1:20 PM EDT Office Visit [facility] [place] [address] [place] [address] Shaye Dobbins APRN.DIRECTOR HAIR [address] [place] [address] 3 month follow up [facility] Comment on above: 3 month follow up Start: 05-24-2024 End: 08-23-2024 Thyrotropin [Units/volume] in Serum or Plasma THYROID STIMULATING HORMONE Lab Routine Acquired hypothyroidism Expected: 05/24/2024 (Approximate), Expires: 08/23/2024 [facility] Work Phone: Comment on above: Expected: 05/24/2024 (Approximate), Expires: 08/23/2024 Start: 05-02-2024 End: 05-02-2024 ambulatory 05/02/2024 9:45 AM EDT OT/PT/Speech Visit [facility] [address] [place] [address] Karissa Garcia, PT vertigo [facility] Comment on above: vertigo Start: 04-23-2024 Covid-19 Vaccine ( season) Covid-19 Vaccine ( season) [facility] Start: 04-23-2024 Covid-19 Vaccine ( season) Covid-19 Vaccine ( season) [facility] Start: 04-23-2024 Influenza vaccination Influenza Vacc ine (#1) [facility] Start: 04-11-2024 End: 07-11-2024 CBC W Auto Differential panel - Blood [facility] Comment on above: Expected: 04/11/2024 , Expires: 07/11/2024 Start: 04-11-2024 End: 07-11-2024 Comprehensive metabolic 2000 panel - Serum or Plasma [facility] Comment on above: Expected: 04/11/2024 , Expires: 07/11/2024 Start: 04-11-2024 End: 07-11-2024 Thyrotropin [Units/volume] in Serum or Plasma [facility] Work Phone: Comment on above: Expected: 04/11/2024 , Expires: 07/11/2024 Start: 03-07-2024 End: 06-06-2024 CBC W Auto Differential panel - Blood [facility] Comment on above: Expected: 03/07/2024 (Approximate), Expires: 06/06/2024 Start: 03-07-2024 End: 06-06-2024 Comprehensive metabolic 2000 panel - Serum or Plasma [facility] Work Phone: Comment on above: Expected: 03/07/2024 (Approximate), Expires: 06/06/2024 Start: 03-07-2024 End: 06-06-2024 Hemoglobin A1c in Blood [facility] Comment on above: Expected: 03/07/2024 (Approximate), Expires: 06/06/2024 Start: 03-07-2024 Hemoglobin A1c measurement HbA1C [facility] Start: 03-07-2024 End: 06-06-2024 LIPID PANEL, NONFASTING [facility] Comment on above: Expected: 03/07/2024 (Approximate), Expires: 06/06/2024 Start: 03-07-2024 End: 06-06-2024 Microalbumin/Creatinine [Mass Ratio] in Urine ALBUMIN/CREATININE RATIO, URINE Lab Routine Essential hypertension Type 2 diabetes, controlled, with neuropathy (HCC) Expected: 03/07/2024 (Approximate), Expires: 06/06/2024 [facility] Comment on above: Expected: 03/07/2024 (Approximate), Expires: 06/06/2024 Start: 03-07-2024 End: 06-06-2024 Thyrotropin [Units/volume] in Serum or Plasma [facility] Comment on above: Expected: 03/07/2024 (Approximate), Expires: 06/06/2024 Start: 03-05-2024 ANNUAL PCP TEAM BROTH MIXER OUMOU DISEASE VISIT ANNUAL PCP TEAM CHRONIC DISEASE VISIT [facility] Start: 2024 RSV Vaccine (1 - 1-d ose 60+ series) RSV Vaccine (1 - 1-dose 60+ series) [facility] Start: 2024 RSV Vaccine (1 - Ris k 60-74 years 1-dose series) RSV Vaccine (1 - Risk 60-74 years 1-dose series) [facility] Start: 09-05-2023 ANNUAL PCP TEAM BROTH MIXER OUMOU DISEASE VISIT ANNUAL PCP TEAM CHRONIC DISEASE VISIT [facility] Start: 09-05-2023 COVID-19 VACCINE (#1) COVID-19 VACCI NE (#1) [facility] Comment on above: Postponed from 09/04 (Declined at this time) Start: 09-05-2023 Hemoglobin A1c/Hemoglobin.total in Blood HBA1C [facility] Start: 09-05-2023 Hepatitis B surface antibody level LDL CHOLESTEROL [facility] Start: 08-23-2023 Behavioral Health Screening Behavioral Health Screening [facility] Start: 06-24-2023 Troponin I measurement [facility] Start: 06-24-2023 [facility] Start: 06-24-2023 [facility] Start: 04-23-2023 Influenza vaccination C [facility] Start: 03-05-2023 End: 05-05-2023 Comprehensive metabolic 2000 panel - Serum or Plasma [facility] Work Phone: Comment on above: Expected: 03/05/2023 (Approximate), Expires: 05/05/2023 Start: 03-05-2023 Hemoglobin A1c/Hemoglobin.total in Blood HBA1C [facility] Start: 03-05-2023 End: 05-05-2023 Thyrotropin [Units/volume] in Serum or Plasma [facility] Work Phone: Comment on above: Expected: 03/05/2023 , Expires: 05/05/2023 Start: 02-19-2023 Influenza vaccination INFLUENZA (#1) [facility] Comment on above: Postponed from 04/23 (Declined at this time) Start: 12-16-2022 Influenza vaccination LUNG CANCER SC REENING [facility] Start: 12-16-2022 Screening for malign ant neoplasm of lung Lung Cancer Screening [facility] Start: 11-21-2022 End: 11-07-2023 CT LUNG SCREEN WO IVCON CT LUNG SCREEN WO IVCON Radiology Routine Tobacco use current Expected: 11/21/2022, Expires: 11/07/2023 [facility] Work Phone: Comment on above: Expected: 11/21/2022 , Expires: 11/07/2023 Start: 11-19-2022 [place] [facility] Start: 09-05-2022 End: 11-05-2022 CBC panel - Blood by Automated count [facility] Work Phone: Comment on above: Expected: 09/05/2022 , Expires: 11/05/2022 Start: 09-05-2022 End: 11-05-2022 Comprehensive metabolic 2000 panel - Serum or Plasma [facility] Work Phone: Comment on above: Expected: 09/05/2022 (Approximate), Expires: 11/05/2022 Start: 09-05-2022 End: 11-05-2022 Hemoglobin A1c in Blood [facility] Work Phone: Comment on above: Expected: 09/05/2022 , Expires: 11/05/2022 Start: 09-05-2022 End: 11-05-2022 LIPID PANEL, NONFASTING [facility] Work Phone: Comment on above: Expected: 09/05/2022 , Expires: 11/05/2022 Start: 09-05-2022 End: 11-05-2022 Thyrotropin [Units/volume] in Serum or Plasma [facility] Work Phone: Comment on above: Expected: 09/05/2022 , Expires: 11/05/2022 Start: 08-23-2022 DEPRESSION ASSESSMENT DEPRESSION ASS ESSMENT [facility] Start: 04-23-2022 Influenza vaccination C [facility] Start: 04-04-2022 BP CONTROLLED (<130/80) BP CONTROLLE D (<130/80) [facility] Start: 02-19-2022 Adult depression screening assessment DEPRESSION SCREENING [facility] Start: 02-19-2022 ANNUAL PCP TEAM BROTH MIXER OUMOU DISEASE VISIT ANNUAL PCP TEAM CHRONIC DISEASE VISIT [facility] Start: 01-31-2022 Hepatitis B surface antibody level LDL CHOLESTEROL [facility] Start: 12-08-2021 End: 02-07-2022 ALBUMIN/CREAT RATIO RND UR ALBUMIN/CREAT RATIO RND UR Lab Routine Type 2 diabetes, controlled, with neuropathy (HCC) Expected: 12/08/2021, Expires: 02/07/2022 [facility] Work Phone: Comment on above: Expected: 12/08/2021 , Expires: 02/07/2022 Start: 12-08-2021 End: 02-07-2022 PSA/PROSTSPECAG SCRN PSA/PROSTSPECAG SCRN Lab Routine Screening for prostate cancer Expected: 12/08/2021, Expires: 02/07/2022 [facility] Work Phone: Comment on above: Expected: 12/08/2021 , Expires: 02/07/2022 Start: 05-03-2021 Hemoglobin A1c/Hemoglobin.total in Blood HBA1C [facility] Start: 05-27-2020 Colonoscopy COLONOSCOPY [facility] Start: 05-27-2020 COLORECTAL CANCER SCREENING COLORECTAL CANCER SCREENING [facility] Start: 05-27-2020 Screening for malign ant neoplasm of colon [facility] Start: 01-05-2020 3 comp foot exam completed DIABETIC FOOT EXAM [facility] Start: 01-05-2020 BP CONTROLLED (<130/80) BP CONTROLLE D (<130/80) [facility] Start: 01-05-2020 Diabetic foot examination Diabetic Foot Exam [facility] Start: 09-20-2019 Hepatitis B screening URINE ALBUMIN:CREATININE RATIO [facility] Start: 08-09-2019 Glaucoma screening Dilated Retinal E xam [facility] Start: 08-09-2019 Hepatitis C antibody , confirmatory test DILATED RETINAL EXAM [facility] Start: 2019 Influenza vaccination LUNG CANCER SC REENING [facility] Start: 2019 PROSTATE CANCER SCREENING DISCUSSION PROSTATE CANCER SCREENING DISCUSSION [facility] Start: 2019 Prostate specific antigen measurement Prostate Cancer Screening Discussion [facility] Start: 2014 SHINGRIX VACCINE (1 of 2) SHINGRIX VACCINE (1 of 2) [facility] Start: 06-24-2012 PNEUMOCOCCAL (2 - PCV) PNEUMOCOCCAL (2 - PCV) [facility] Start: 2009 COLOGUARD (FIT-DNA) COLOGUARD (FIT-D NA) [facility] Start: [address] COLONOGRAPHY [facility] Start: 2009 FECAL OCCULT BLOOD FECAL OCCULT BLOO D [facility] Start: 2009 Prostate specific antigen measurement Prostate Cancer Screening Discussion [facility] Start: 2009 Screening for malign ant neoplasm of colon [facility] Start: [address] [facility] Start: 1994 Zoledronic acid therapy ALPHA- 1 ANTITRYPSIN DEFICIENCY SCREENING [facility] Start: 1983 HEPATITIS B (1 of 3 - Risk 3-dose series) HEPATITIS B (1 of 3 - Risk 3-dose series) [facility] Start: 1969 COVID-19 VACCINE (#1) COVID-19 VACCI NE (#1) [facility] Start: 1969 COVID-19 VACCINE (1) COVID-19 VACCIN E (1) [facility] Start: 1964 COVID-19 VACCINE (#1) COVID-19 VACCI NE (#1) [facility] Start: 1964 HEPATITIS B (1 of 3 - 3-dose series) HEPATITIS B (1 of 3 - 3-dose series) [facility] Lactic acid measurement [facility] Patient Education [facility] Work Phone: Patient referral [facility] Work Phone: Troponin T.cardiac [Mass/volume] in Serum or Plasma by High sensitivity method [facility] Urine culture [facility] Immunizations Immunization Date Immunization Notes Care Provider Tanner lopez 10-18-2024 influenza, seasonal, injectable Shaye Dobbins APRN.CNP Work Phone: [facility] 10-18-2024 influenza virus vaccine, unspecified formulation Naomy GARCIA [facility] 09-07-2023 influenza, injectabl e, quadrivalent, contains preservative Kaushik Seals MD Work Phone: [facility] 09-07-2023 influenza virus vaccine, unspecified formulation Kaushik Seals MD Work Phone: [facility] 03-05-2023 pneumococcal (PCV20) vaccine, 20 valent (PREVNAR 20) Kaushik Seals MD Work Phone: [facility] 03-05-2023 pneumococcal Conjuga te, unspecified formulation Kaushik Seals MD Work Phone: [facility] Work Phone: 07-12-2019 influenza, injectabl e, quadrivalent, contains preservative Kaushik Seals MD Work Phone: [facility] 07-12-2019 influenza virus vaccine, unspecified formulation Armin Siddiqui MD Work Phone: [facility] 07-10-2019 tetanus toxoid, redu rudy diphtheria toxoid, and acellular pertussis vaccine, adsorbed Kaushik Seals MD Work Phone: [facility] 06-06-2019 Influenza virus vaccine [facility] 06-18-2017 influenza, injectabl e, quadrivalent, contains preservative Kaushik Seals MD Work Phone: [facility] 06-11-2016 influenza, injectabl e, quadrivalent, contains preservative Kaushik Seals MD Work Phone: [facility] 05-20-2015 influenza, injectabl e, quadrivalent, contains preservative Kaushik Seals MD Work Phone: [facility] 06-05-2014 influenza, seasonal, injectable Kaushik Seals MD Work Phone: [facility] 06-23-2013 Influenza virus vaccine [facility] 06-22-2013 influenza virus vaccine, unspecified formulation Kaushik Seals MD Work Phone: [facility] 06-21-2012 influenza virus vaccine, unspecified formulation Kaushik Seals MD Work Phone: [facility] 07-23-2011 influenza virus vaccine, unspecified formulation Kaushik Seals MD Work Phone: [facility] 06-24-2011 pneumococcal polysaccharide vaccine, 23 valent Kaushik Seals MD Work Phone: [facility] Work Phone: 06-02-2010 influenza virus vaccine, unspecified formulation Kaushik Seals MD Work Phone: [facility] Work Phone: 05-23-2010 Pneumococcal Vaccine [facility] Work Phone: 05-23-2010 pneumococcal vaccine , unspecified formulation [facility] 05-17-2010 tetanus and diphther ia toxoids, adsorbed, preservative free, for adult use (2 Lf of tetanus toxoid and 2 Lf of diphtheria toxoid) Kaushik Seals MD Work Phone: [facility] Work Phone: 06-05-2009 influenza virus vaccine, unspecified formulation Kaushik Seals MD Work Phone: [facility] 07-14-2004 tetanus and diphther ia toxoids, not adsorbed, for adult use Kaushik Seals MD Work Phone: [facility] Work Phone: 06-23-2004 pneumococcal polysaccharide vaccine, 23 valent Kaushik Seals MD Work Phone: [facility] Work Phone: Payers Date Payer Category Payer Self-pay [id number] 2024 Unknown [id number] 2019 Medicaid [id number] 2014 Medicare [id number] 2014 Medicare [facility] [id number] 2014-Present [phone] [address] [place] [address] Medicare [id number] 2014 Medicare (Managed Care) [facility] [id number] 2014 Unknown [id number] Unknown [id number] Unknown [id number] Unknown [id number] Unknown [id number] Social History Date Type Detail Facility Start: 08-23-1978 End: 04-11-2024 Tobacco smoking status FLIS Smokes tobacco daily [facility] Start: 08-23-1978 History of tobacco use Cigarette Smo ker [facility] Start: 08-23-1978 History of tobacco use Cigar Smoker [facility] Start: 02-10-2011 End: 06-01-2024 Cigarettes smoked current (pack per day) - Reported 2 [facility] Start: 02-10-2011 End: 04-11-2024 Tobacco use and exposure Former smokeless tobacco user [facility] Start: 04-07-2021 End: 04-24-2025 Alcohol intake Current drinker of alcohol (finding) [facility] Start: 04-04-2021 Tobacco Comment ecigs/cigarett e's, former 2 ppd smoker [facility] Start: 1965 Sex Assigned At Not on file C [facility] Start: 12-02-2021 End: 09-05-2022 Tobacco Comment smokes Cigars blackand maloney and cigarettes 2 ppd smoker [facility] Start: 12-06-2021 End: 12-16-2021 Exposure to SARS-CoV-2 (event) Not sure [facility] Start: 02-11-2022 End: 06-24-2023 Tobacco smoking status NHIS Unknown if ever smoked [facility] Start: 08-21-2020 None [facility] Start: 08-21-2020 Alone [facility] Start: 03-28-2020 Cigarettes;Cigars [facility] Start: 1965 Sex Assigned At Male W [facility] Start: 03-05-2023 End: 06-01-2024 Tobacco use panel [facility] Start: 07-24-2012 Adult Depression Screening Assessment 0 [facility] Start: 12-07-2024 Sex Male (finding) [facility] Medical Equipment Procedure Code Equipment Code Equipment Original Text Equipment Identifier Dates [id number], [id number], [id number], [id number], [id number], [id number] Start: 02-19-2021 End: 02-05-2025 Comment on above: Test blood sugar(s) 1 times daily. Dx: Type 2 DM - Uncontrolled E11.65 Insulin: No Functional Status Date Assessment Result Facility 01-24-2015 Are you deaf, or do you have serious difficulty hearing No 01/24/2015 3:12 PM Glenda Padron MA No [facility] 01-24-2015 Are you blind, or do you have serious difficulty seeing, even when wearing glasses No 01/24/2015 3:12 PM Glenda Padron MA No [facility] 01-24-2015 Do you have serious difficulty walking or climbing stairs No 01/24/2015 3:12 PM Glenda Padron MA No [facility] 01-24-2015 Do you have difficul ty dressing or bathing No 01/24/2015 3:12 PM Glenda Padron MA No [facility] 01-24-2015 Because of a physica l, mental, or emotional condition, do you have difficulty doing errands alone such as visiting a physician's office or shopping No 01/24/2015 3:12 PM EDT Glenda Vinson MA No [facility] Mental Status Date Assessment Result Facility 12-06-2024 Cognitive function Awake;Alert;A ppropriate;Fol lows Commands [facility] Work Phone: 06-24-2023 Cognitive function Level Of Cons ciousness Awake;Alert;Appropriate;Fol lows Commands [facility] Work Phone: 11-19-2022 Cognitive function Awake;Alert;F ollows Commands [facility] Work Phone: 01-24-2015 Because of a physica l, mental, or emotional condition, do you have serious difficulty concentrating, remembering, or making decisions No 01/24/2015 3:12 PM EDT Glenda Vinson MA No [facility] Clinical Notes 06-05-2014 to 07-02-2025 Telephone Encounter - Norma Matta, [facility] - 04/30/2025 2:55 PM EDTTelephone Encounter - Norma Matta, [facility] - 04/30/2025 2:55 PM Kaushik Gay MD - 04/24/2025 11:00 AM EDT Note Date & Type Note Facility 07-02-2025 Note HNO ID: [id number] Author: MARKY SCOTT ashley Service: ? Author Type: Pharmacist Type: Progress Notes Filed: 07/02/2025 15:58 Note Text: Primary Care Pharmacy Visit CC (Reason for Consult): Diabetes (E11.40) Type 2 diabetes, controlled, with neuropathy (HCC) (primary encounter diagnosis) Goal: A1c < 7% Referring Provider: Micky Cabezas CNP Last Collaborating Provider Visit: 01/16/25 Lucas Mccabe is a 60 year old male presenting for follow up visit telephone call. Patient consents to pharmacy collaborative practice agreement.. Interim Events: 12/06: ED for confusion 01/16: gabapentin increased; labs later returned --> pt started on vitamin D supplement, levothyroxine was increased, glimepiride increased and referred to PharmD for DM mngt 02/05: initial PharmD visit; pt reported significant med nonadherence; metformin IR switched to ER; atorvastatin increased; CGM ordered; adherence tips provided 03/12: no med changes since no Bgs to review 04/09: Trulicity started; stressed importance of SMBG, med adherence, and weight loss 05/21: Trulicity increased; advised to start checking sugars; encouraged smoking cessation HPI: Still not checking blood sugars. States he can't find his test strips. It might be in my truck. States he ran out of [employer], expecting a shipment Wednesday (today). Last dose was this past Wednesday, due for next dose in 2 days. Tolerating well, no GI issues. He told DIRECTOR HAIR that he was taking 2 pens of the 1.5 so then the 3mg pens were ordered, but later confirmed he was taking 2 pens of 0.75mg pens for a total of 1.5mg weekly. Energy level is normal, not bad. Does occasionally get dry mouth and thirst. Taking Lasix, does pee a lot. Never stopped smoking but did cut down a lot. Down to about 1/2 ppd. He can breathe a little better. Smells are different. First cig is within 30 mins of waking. Current DM Medications: Metformin ER 500mg tabs - 1000mg BID Glimepiride 4mg BID Dulaglutide (Trulicity) 3mg weekly on Wednesdays (actually taking 1.5mg weekly) Preventative Medications: On LYNETTE/ARB: Yes On Statin: Yes ROS: Patient denies CP, SOB, ARORA, blurred vision, dizziness or lightheadedness Patient denies symptoms of hypoglycemia (sweating, anxiety, palpitations, hunger, and tremor) Patient reports symptoms of hyperglycemia (polyuria, polydipsia) Patient denies potential medication adverse effects DIET/EXERCISE/SOCIAL Hx: Working to cut back on quantity/portions Eats once per day - usually a pizza or big mac or several sandwiches Beverages: coffee and water Exercise: minimal/none Tobacco: 1/2 ppd MEDICATIONS: Pill bottles are not present. Adherence: denies missed doses. Pharmacy: [facility] [address] [place] [phone] [phone] Rx coverage: Payor: [employer] / Plan: [facility] / Product Type: Medicare / Medications affordable? Yes ACTIVE PROBLEM LIST Thoracic Or Lumbosacral Neuritis Or Radiculitis, Unspecified Displacement of Intervertebral Disc, Site Unspecified, Without Myelopathy Pmh - Past Medical History of Spondylosis of Unspecified Site Without Mention of Myelopathy Myalgia and Myositis, Unspecified Neuralgia, Neuritis, and Radiculitis, Unspecified Embolism and Thrombosis (Hcc) Generalized Osteoarthrosis, Unspecified Site Esophageal Reflux Essential Hypertension Spinal Stenosis, Lumbar Region, Without Neurogenic Claudication Primary Hypercoagulable State (Hcc) Tobacco Use Disorder Other Acquired Deformity of Toe Pain in Limb Dermatophytosis of Nail Corns and Callosities Venous Insufficiency Pain in Joint, Shoulder Region Chronic Pain Lumbar Disc Displacement Without Myelopathy Ddd (Degenerative Disc Disease), Lumbar Asthma (Hcc) Type 2 Diabetes, Controlled, With Neuropathy (Hcc) Essential Hypertension With Goal Blood Pressure Less Than 140/90 Acquired Hypothyroidism Obstructive Sleep Apnea Factor V Leiden (Hcc) Chronic Pulmonary Embolism Without Acute Cor Pulmonale (Hcc) Requires Continuous At Home Supplemental Oxygen Pulmonary Emphysema ([facility]) Obesity, Class II, Bmi 35-39.9 Family History of Malignant Hypertension Dizziness Bppv (Benign Paroxysmal Positional Vertigo), Unspecified Laterality Coronary Artery Disease Involving [place] Coronary Artery of [place] Heart Without Angina Pectoris PAST MEDICAL HISTORY Diagnosis Date Chronic pain Displacement of intervertebral disc, site unspecified, without myelopathy 05/06/2005 DVT (deep venous thrombosis) ([facility]) Esophageal reflux Factor V Leiden mutation (HCC) Generalized osteoarthrosis, unspecified site Hypothyroidism Myalgia and myositis, unspecified Neuralgia, neuritis, and radiculitis, unspecified Obesity, unspecified LEONEL (obstructive sleep apnea) Pulmonary embolism (HCC) 03/2020 Spondylosis of unspecified site without mention of myelopathy Thoracic or lumbosacral (more content not included)... [facility] 05-21-2025 Note HNO ID: [id number] Author: MARKY SCOTT RPh Service: ? Author Type: Pharmacist Type: Progress Notes Filed: 05/21/2025 13:35 Note Text: Primary Care Pharmacy Visit CC (Reason for Consult): Diabetes (E11.40) Type 2 diabetes, controlled, with neuropathy (HCC) (primary encounter diagnosis) Goal: A1c < 7% Referring Provider: Micky Cabezas CNP Last Collaborating Provider Visit: 01/16/25 Lucas Mccabe is a 60 year old male presenting for follow up visit telephone call. Patient consents to pharmacy collaborative practice agreement. Interim Events: 12/06: ED for confusion 01/16: gabapentin increased; labs later returned --> pt started on vitamin D supplement, levothyroxine was increased, glimepiride increased and referred to PharmD for DM mngt 02/05: initial PharmD visit; pt reported significant med nonadherence; metformin IR switched to ER; atorvastatin increased; CGM ordered; adherence tips provided 03/12: no med changes since no Bgs to review 04/09: Trulicity started; stressed importance of SMBG, med adherence, and weight loss HPI: First says he never started Trulicity, then realized he was thinking of something else and states he does take it every Wednesday. Has it in the refrigerator at his sister's house. He is there every day. Tolerating fine. No GI issues. Doesn't feel as hungry. Thinks he is eating less. Has noticed occasional improved energy. Thinks he is not as thirsty, but still gets thirsty at night. Thinks he is peeing a little less frequently. Has NOT started checking sugars. Either needs to purchase things to help sensors stay on or needs to get new battery for glucometer. I keep forgetting. No feelings of low sugars. Does smoke, interested in quitting. I know I have to. Smoking 1+ packs/day. Has first cig immediately upon waking. Reports being a 10/10 for wanting to quit. States he has quit in the past, thinks ~20 years ago. Had quit for ~10 years, then his mom and he restarted smoking. Quit cold turkey back then. Modified Fagerstrom Test for Nicotine Dependence: How soon after waking do you have your first cigarrette? A. Within 5 mins (3 points) B. 5-30 mins (2 points) C. 31-60 mins (1 point) D. >60 mins (0 points) Do you find it difficult not to smoke in places where smoking is forbidden? A. Yes (1 point) B. No (0 points) Which cigarette would you hate to give up most? A. First one in the morning (1 point) B. Any other one (0 points) How many cigarettes do you smoke each day A. 10 or fewer (0 points) B. 11-20 (1 point) C. 21-30 (2 points) D. 31+ (3 points) Do you smoke more during the first few hours after waking up than during the rest of the day? A. Yes (1 point) B. No (0 points) Do you still smoke if you are so sick that you are in bed most of the days, or if you have a cold or the flu and having trouble breathing? A. Yes (1 point) B. No (0 points) Fagerstrom Score: moderate dependence (5-7) Current DM Medications: Metformin ER 500mg tabs - 1000mg BID Glimepiride 4mg BID Dulaglutide (Trulicity) 0.75mg weekly on Wednesdays Past DM medications: None Preventative Medications: On LYNETTE/ARB: Yes On Statin: Yes ROS: Patient denies CP, SOB, ARORA, blurred vision, or lightheadedness. Does get occasional dizziness but thinks it is vertigo. Patient denies symptoms of hypoglycemia (sweating, anxiety, palpitations, hunger, and tremor) Patient denies symptoms of hyperglycemia (polyuria, polydipsia, polyphagia) Patient denies potential medication adverse effects DIET/EXERCISE/SOCIAL Hx: Eating less MEDICATIONS: Pill bottles are not present. Adherence: denies missed doses. Pharmacy: [facility] [address] [place] [phone] [facility] [phone] Rx coverage: Payor: [facility] MED[facility] / Plan: [facility] MEDICARE / Product Type: Medicare / ACTIVE PROBLEM LIST Thoracic Or Lumbosacral Neuritis Or Radiculitis, Unspecified Displacement of Intervertebral Disc, Site Unspecified, Without Myelopathy Pmh - Past Medical History of Spondylosis of Unspecified Site Without Mention of Myelopathy Myalgia and Myositis, Unspecified Neuralgia, Neuritis, and Radiculitis, Unspecified Embolism and Thrombosis (Hcc) Generalized Osteoarthrosis, Unspecified Site Esophageal Reflux Essential Hypertension Spinal Stenosis, Lumbar Region, Without Neurogenic Claudication Primary Hypercoagulable State (Hcc) Tobacco Use Disorder Other Acquired Deformity of Toe Pain in Limb Dermatophytosis of Nail Corns and Callosities Venous Insufficiency Pain in Joint, Shoulder Region Chronic Pain Lumbar Disc Displacement Without Myelopathy Ddd (Degenerative Disc Disease), Lumbar Asthma (Hcc) Type 2 Diabetes, Controlled, With Neuropathy (Hcc) Essential Hypertension With Goal Blood Pressure Less Than 140/90 Acquired Hypothyroidism Obstructive Sleep Apnea Factor V Leiden (Hcc) Chronic Pulmonary Embo (more content not included)... [facility] 04-30-2025 Telephone encounter Note Telephoned the patient regarding missed appt. Not able to leave a message due to no voicemail. [facility] 04-30-2025 Miscellaneous Notes Telephoned the patient regarding missed appt. Not able to leave a message due to no voicemail. Called patient for scheduled phone appt today x 2. Unable to reach, dial tone was continuous and then would disconnect. Not able to leave voicemail. [facility] Pharmacy Rescheduling Outreach Call center, please contact patient and reschedule telephone visit for Diabetes management within ~4 week(s). (Visit length: 30 minutes) Thank you, Marky Scott RPh 04/30/2025 2:42 PM documented in this encounter [facility] 04-30-2025 Telephone encounter Note Called patient for scheduled phone appt today x 2. Unable to reach, dial tone was continuous and then would disconnect. Not able to leave voicemail. Primary Care Pharmacy Rescheduling Outreach Call center, please contact patient and reschedule telephone visit for Diabetes management within ~4 week(s). (Visit length: 30 minutes) Thank you, Marky Scott RPh 04/30/2025 2:42 PM [facility] Work Phone: 04-24-2025 History of Present illness Narrative Chief Complaint Patient presents with: F/U 3 Month HPI Lucas Mccabe is a 60 year old male who presents here today for 3 month follow up. GERD: Stable on Prilosec 40 mg daily. DM: Working with Pharmacist. Taking Trulicity 0.75 mg weekly, Metformin 500 mg 2 pills BID and Amaryl 4 mg 1 pill BID. No hypoglycemic episodes. HTN: Taking Lisinopril 20 mg Lipid: Taking Lipitor. Denies watching diet or exercise. DM Neuropathy/DDD/chronic pain syndrome: Taking Gabapentin 300 mg at night and Cymbalta 60 mg 1 pill BID. COPD/emphysema: follows with Pulmonary, using inahlers. Thyroid: Taking Synthroid 200 mcg and 88 mcg daily. Edema: mónica legs; stable on Lasix 40 mg daily. Is taking Eliqius 5 mg BID for embolism/thrombosis. Has right hip, knee, down the entire right leg into foot that has been an issues for some time but worsened over the last 1 month or so. He thinks it is swollen. He uses a cane. He takes OTC pain relievers used. No heat or ice used. Tries to stretch it some. He c/o of numbness/tingling in the leg. Past medical history, appointments, medications, allergies reviewed. Previous Medical History PAST MEDICAL HISTORY Diagnosis Date Chronic pain Displacement of intervertebral disc, site unspecified, without myelopathy 05/06/2005 DVT (deep venous thrombosis) ([facility]) Esophageal reflux Factor V Leiden mutation ([facility]) Generalized osteoarthrosis, unspecified site Hypothyroidism Myalgia and myositis, unspecified Neuralgia, neuritis, and radiculitis, unspecified Obesity, unspecified LEONEL (obstructive sleep apnea) Pulmonary embolism (HCC) 03/2020 Spondylosis of unspecified site without mention of myelopathy Thoracic or lumbosacral neuritis or radiculitis, unspecified 04/01/2005 Type 2 diabetes mellitus (HCC) Unspecified essential hypertension Previous Surgical History PAST SURGICAL HISTORY Procedure Laterality Date ARTHROSCOPY KNEE DIAGNOSTIC W/WO SYNOVIAL BX SPX 04/17/2003 Arthroscopy, knee, right knee COLONOSCOPY FLX DX W/COLLJ SPEC WHEN PFRMD 05/21/2014 Colonoscopy COLONOSCOPY FLX DX W/COLLJ SPEC WHEN PFRMD 05/27/15 Colonoscopy ESOPHAGOGASTRODUODENOSCOPY TRANSORAL DIAGNOSTIC 05/21/2014 EGD Family History FAMILY HISTORY Problem Relation Age of Onset Diabetes Mother Hypertension Mother Cancer Mother pancreas Lung Cancer Mother Heart Father COPD Sister other (breathing issues) Sister Factor 5 Leiden Sister Patient Allergies ALLERGIES Allergen Reactions Latex Intolerance Headache, dizzy, trouble breathing Zomig [Zolmitriptan] Mental Status Change Current Medications Current Outpatient Medications on File Prior to Visit Medication Sig meclizine (ANTIVERT) 25 mg tab Take 1 tablet by mouth every 6 hours as needed (for dizziness). dulaglutide (TRULICITY) 0.75 mg/0.5 mL pen injector Inject 0.75 mg subcutaneously one time a week. guaiFENesin (MUCINEX) 600 mg 12 hr tablet Take 2 tablets by mouth two times a day as needed for cold/allergy symptoms. omeprazole (PRILOSEC) 40 mg capsule Take 1 capsule by mouth once daily. blood sugar diagnostic (BLOOD GLUCOSE TEST) test strip Use as instructed to check blood sugar twice daily. Please fill with brand covered by patient's insurance. Lancets Use as instructed to check blood sugar twice daily and as needed. levothyroxine (SYNTHROID) 200 mcg tablet Take 1 tablet by mouth once daily. Take on empty stomach. For Thyroid. levothyroxine (SYNTHROID) 88 mcg tablet Take 1 tablet by mouth once daily. Take 1 tablet by mouth once daily. Take on empty stomach. For Thyroid. To be taken with Levothyroxine 200 mcg tablet to make 288 mcg Nebulizer Accessories kit 1 kit as needed. ipratropium-albuterol (DUONEB) 0.5 mg-3 mg(2.5 mg base)/3 mL nebu Inhale 3 mL as instructed every 6 hours as needed for wheezing/shortness of breath. atorvastatin (LIPITOR) 40 mg tablet Take 1 tablet by mouth once daily. Blood-Glucose Sensor (FREESTYLE MANDEEP 3 PLUS SENSOR) nadeem Apply new sensor every fifteen (15) days to upper arm. metFORMIN ER (GLUCOPHAGE XR) 500 mg 24 hr tablet Take 2 tablets by mouth two times a day. ergocalciferol 50,000 unit capsule (VITAMIN D2, DRISDOL) Take 1 capsule by mouth two times a week for 30 days, THEN 1 capsule one time a week. glimepiride (AMARYL) 4 mg tablet Take 1 tablet by mouth two times a day with meals. gabapentin (NEURONTIN) 300 mg capsule Take 1 capsule by mouth two times a day for 180 days. albuterol HFA (VENTOLIN HFA) 90 mcg/actuation inhaler INHALE 2 PUFFS ORALLY DIRECTED EVERY 4 HOURS NEEDED [id number] (BREZTRI AEROSPHERE) 160-9-4.8 mcg/actuation HFA aerosol inhaler Inhale 2 Puffs as instructed two times a day. DULoxetine (CYMBALTA) 60 mg capsule Take 1 capsule by mouth two times a day. furosemide (LASIX) 40 mg tablet Take 1 tablet by mouth once daily. lisinopril (ZESTRIL) 20 mg tablet Take 1 tablet by mouth once daily. apixaban (ELIQUIS) 5 mg tab(s) Take 1 tablet by mouth two times a day. No current facility-administered medications on file prior to visit. Social History SOCIAL HISTORY[1] EXAM: BP 138/88 Pulse 88 Resp 18 Wt (!) 146.7 kg (323 lb 6.6 oz) SpO2 95% BMI 43.86 kg/m General Appearance: Well appearing, alert, in no acute distress, well-hydrated, well nourished.. Lungs: Lungs clear to auscultation. No wheezing, rhonchi, rales.. Heart: RRR without murmur, gallop, or rubs. No ectopy. Health Maintenance List Shingrix Vaccine(1 of 2) Never done Dilated Retinal Exam due on 08/09/2019 Urine Albumin:Creatinine Ratio due on 09/20/2019 Diabetic Foot Exam due on 01/05/2020 Colorectal Cancer Screening due on 05/27/2020 Lung Cancer Screening due on 12/16/2022 RSV Vaccine(1 - Risk 60-74 years 1-dose series) Never done Medicare Advantage Annual Wellness Visit Never done Depression Screening due on 03/07/2025 Anxiety Screening due on 03/07/2025 HbA1C due on 04/18/2025 Influenza Vaccine(1) due on 04/23/2025 LDL Cholesterol due on 01/16/2026 Annual PCP Team Chronic Disease Visit due on 01/16/2026 DTaP,Tdap,Td Vaccine(2 - Td or Tdap) due on 07/10/2029 Prostate Cancer Screening Discussion due on 01/16/2030 Hepatitis C Screening Completed Pneumococcal Vaccine: 50+ Completed HIV Screening Discontinued Data reviewed none Recording using KARAL[employer] software for draft documentation of the visit was discussed with the patient/authorized rental sales representative; all questions welcomed and answered. Patient/authorized rental sales representative agreed to proceed 1. Essential hypertension (I10) Essential hypertension with goal blood pressure less than 140/90. - Continue current management. 2. Tobacco use disorder (F17.200) Patient reports decreased tobacco use. - Advised patient on the benefits of smoking cessation. 3. 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 Type 2 diabetes mellitus with hyperglycemia, unspecified whether longterm insulin use (HCC) (E11.65) Last A1c was 9.0 a couple months ago; patient is working with the pharmacist to improve glycemic control. Patient is not currently checking blood sugars at home due to lack of a battery for the glucometer; has attempted to use a continuous glucose monitor but found it challenging. - Order blood work today to assess current glycemic control. - Follow-up in 3 months. 5. Acquired hypothyroidism (E03.9) Last TSH was elevated; thyroid medication dose was recently increased. - Order blood work today to reassess thyroid function. 6. Right knee pain, unspecified chronicity (M25.561) Chronic right knee pain following prior shrapnel removal surgery; pain has worsened over time. - Order referral to orthopedics for further evaluation and management. 7. Vitamin D deficiency (E55.9) Last vitamin D level was low; patient is on weekly vitamin D supplementation. - Order blood work today to reassess vitamin D levels. 8. Venous insufficiency (I87.2) 9. Essential hypertension with goal blood pressure less than 140/90 (I10) I agree with the Chief Complaint, ROS, and Past Histories independently gathered by the clinical technical support analyst and the remaining scribed note accurately describes my personal service to the patient. Medical Decision Making: Problems: Moderate: 2+ stable chronic illnesses Risk: Moderate: Drug management Medical Decision Making Level: 4 - Moderate Kaushik Seals MD The documentation for this note was completed by Vanessa Capone MA acting as scribe for Kaushik Seals MD. April 24, 2025 11:15 AM. Vanessa Capone MA [1] Social History Tobacco Use Smoking status: Every Day Current packs/day: 2.00 Average packs/day: 2.0 packs/day for 46.7 years (93.3 ttl pk-yrs) Types: Cigarettes, Cigars Start date: 08/23/1978 Smokeless tobacco: Former Tobacco comments: smokes Cigars blackand maloney and cigarettes 2 ppd smoker Vaping Use Vaping status: Never Used Substance Use Topics Alcohol use: Yes Comment: 6 pack per year Drug use: No documented in this encounter [facility] 04-24-2025 Note HNO ID: [id number] Author: KAUSHIK SEALS MD Service: ? Author Type: Physician Type: Progress Notes Filed: 04/24/2025 17:31 Note Text: Chief Complaint Patient presents with: F/U 3 Month HPI Lucas Mccabe is a 60 year old male who presents here today for 3 month follow up. GERD: Stable on Prilosec 40 mg daily. DM: Working with Pharmacist. Taking Trulicity 0.75 mg weekly, Metformin 500 mg 2 pills BID and Amaryl 4 mg 1 pill BID. No hypoglycemic episodes. HTN: Taking Lisinopril 20 mg Lipid: Taking Lipitor. Denies watching diet or exercise. DM Neuropathy/DDD/chronic pain syndrome: Taking Gabapentin 300 mg at night and Cymbalta 60 mg 1 pill BID. COPD/emphysema: follows with Pulmonary, using inahlers. Thyroid: Taking Synthroid 200 mcg and 88 mcg daily. Edema: mónica legs; stable on Lasix 40 mg daily. Is taking Eliqius 5 mg BID for embolism/thrombosis. Has right hip, knee, down the entire right leg into foot that has been an issues for some time but worsened over the last 1 month or so. He thinks it is swollen. He uses a cane. He takes OTC pain relievers used. No heat or ice used. Tries to stretch it some. He c/o of numbness/tingling in the leg. Past medical history, appointments, medications, allergies reviewed. Previous Medical History PAST MEDICAL HISTORY Diagnosis Date Chronic pain Displacement of intervertebral disc, site unspecified, without myelopathy 05/06/2005 DVT (deep venous thrombosis) ([facility]) Esophageal reflux Factor V Leiden mutation (HCC) Generalized osteoarthrosis, unspecified site Hypothyroidism Myalgia and myositis, unspecified Neuralgia, neuritis, and radiculitis, unspecified Obesity, unspecified LEONEL (obstructive sleep apnea) Pulmonary embolism (HCC) 03/2020 Spondylosis of unspecified site without mention of myelopathy Thoracic or lumbosacral neuritis or radiculitis, unspecified 04/01/2005 Type 2 diabetes mellitus (HCC) Unspecified essential hypertension Previous Surgical History PAST SURGICAL HISTORY Procedure Laterality Date ARTHROSCOPY KNEE DIAGNOSTIC W/WO SYNOVIAL BX SPX 04/17/2003 Arthroscopy, knee, right knee COLONOSCOPY FLX DX W/COLLJ SPEC WHEN PFRMD 05/21/2014 Colonoscopy COLONOSCOPY FLX DX W/COLLJ SPEC WHEN PFRMD 05/27/15 Colonoscopy ESOPHAGOGASTRODUODENOSCOPY TRANSORAL DIAGNOSTIC 05/21/2014 EGD Family History FAMILY HISTORY Problem Relation Age of Onset Diabetes Mother Hypertension Mother Cancer Mother pancreas Lung Cancer Mother Heart Father COPD Sister other (breathing issues) Sister Factor 5 Leiden Sister Patient Allergies ALLERGIES Allergen Reactions Latex Intolerance Headache, dizzy, trouble breathing Zomig [Zolmitriptan] Mental Status Change Current Medications Current Outpatient Medications on File Prior to Visit Medication Sig meclizine (ANTIVERT) 25 mg tab Take 1 tablet by mouth every 6 hours as needed (for dizziness). dulaglutide (TRULICITY) 0.75 mg/0.5 mL pen injector Inject 0.75 mg subcutaneously one time a week. guaiFENesin (MUCINEX) 600 mg 12 hr tablet Take 2 tablets by mouth two times a day as needed for cold/allergy symptoms. omeprazole (PRILOSEC) 40 mg capsule Take 1 capsule by mouth once daily. blood sugar diagnostic (BLOOD GLUCOSE TEST) test strip Use as instructed to check blood sugar twice daily. Please fill with brand covered by patient's insurance. Lancets Use as instructed to check blood sugar twice daily and as needed. levothyroxine (SYNTHROID) 200 mcg tablet Take 1 tablet by mouth once daily. Take on empty stomach. For Thyroid. levothyroxine (SYNTHROID) 88 mcg tablet Take 1 tablet by mouth once daily. Take 1 tablet by mouth once daily. Take on empty stomach. For Thyroid. To be taken with Levothyroxine 200 mcg tablet to make 288 mcg Nebulizer Accessories kit 1 kit as needed. ipratropium-albuterol (DUONEB) 0.5 mg-3 mg(2.5 mg base)/3 mL nebu Inhale 3 mL as instructed every 6 hours as needed for wheezing/shortness of breath. atorvastatin (LIPITOR) 40 mg tablet Take 1 tablet by mouth once daily. Blood-Glucose Sensor (FREESTYLE MANDEEP 3 PLUS SENSOR) nadeem Apply new sensor every fifteen (15) days to upper arm. metFORMIN ER (GLUCOPHAGE XR) 500 mg 24 hr tablet Take 2 tablets by mouth two times a day. ergocalciferol 50,000 unit capsule (VITAMIN D2, DRISDOL) Take 1 capsule by mouth two times a week for 30 days, THEN 1 capsule one time a week. glimepiride (AMARYL) 4 mg tablet Take 1 tablet by mouth two times a day with meals. gabapentin (NEURONTIN) 300 mg capsule Take 1 capsule by mouth two times a day for 180 days. albuterol HFA (VENTOLIN HFA) 90 mcg/actuation inhaler INHALE 2 PUFFS ORALLY DIRECTED EVERY 4 HOURS NEEDED ifosiukdgg-ibsrahbu-mrbeeneofo (BREZTRI AEROSPHERE) 160-9-4.8 mcg/actuation HFA aerosol inhaler Inhale 2 Puffs as instructed two times a day. DULoxetine (CYMBALTA) 60 mg capsule Take 1 capsule by mouth two times a day. furose (more content not included)... [facility] 04-09-2025 History of Present illness Narrative Primary Care Pharmacy Visit CC (Reason for Consult): Diabetes (E11.40) Type 2 diabetes, controlled, with neuropathy (HCC) (primary encounter diagnosis) Goal: A1c < 7% Referring Provider: Micky Cabezas CNP Last Collaborating Provider Visit: 01/16/25 Lucas Mccabe is a 60 year old male presenting for follow up visit telephone call. Patient consents to pharmacy collaborative practice agreement. Interim Events: 12/06: ED for confusion 01/16: gabapentin increased; labs later returned --> pt started on vitamin D supplement, levothyroxine was increased, glimepiride increased and referred to PharmD for DM mngt 02/05: initial PharmD visit; pt reported significant med nonadherence; metformin IR switched to ER; atorvastatin increased; CGM ordered; adherence tips provided 03/12: no med changes since no Bgs to review HPI: Patient said he just finished eating at [employer], only has a little bit of time to talk. States that he has not checked his sugar, he forgot. Not using CGM. Reports he does have supplies at home but batteries are in glucometer. Energy level is better but not great. Usually feels thirsty at night, not too much during the day. Occasional dry mouth. Denies frequent urination. Does wake up 3-4x/night to urinate. Does see an eye doctor, thinks last visit was earlier this year. Denies any issues. Current DM Medications: Metformin ER 500mg tabs - 1000mg BID Glimepiride 4mg BID Past DM medications: None Preventative Medications: On LYNETTE/ARB: Yes On Statin: Yes ROS: Patient denies CP, SOB, ARORA, blurred vision, dizziness or lightheadedness Patient denies symptoms of hypoglycemia (sweating, anxiety, palpitations, hunger, and tremor) Patient reports symptoms of hyperglycemia (polyuria, polydipsia) Patient denies potential medication adverse effects DIET/EXERCISE/SOCIAL Hx: Trying to be more mindful of what he is eating. Trying to eat less pizza (eating 4 slices instead of 8 slices); has cut back on sodas Exercise: doesn't move very much MEDICATIONS: Pill bottles are not present. Adherence: reports missed doses of meds maybe once per week, doing better. Pharmacy: [facility] [address] [place] [phone] [facility] [phone] Rx coverage: Payor: [facility] / Plan: [facility] MEDIC[facility] / Product Type: Medicare / ACTIVE PROBLEM LIST Thoracic Or Lumbosacral Neuritis Or Radiculitis, Unspecified Displacement of Intervertebral Disc, Site Unspecified, Without Myelopathy Pmh - Past Medical History of Spondylosis of Unspecified Site Without Mention of Myelopathy Myalgia and Myositis, Unspecified Neuralgia, Neuritis, and Radiculitis, Unspecified Embolism and Thrombosis (Hcc) Generalized Osteoarthrosis, Unspecified Site Esophageal Reflux Essential Hypertension Spinal Stenosis, Lumbar Region, Without Neurogenic Claudication Primary Hypercoagulable State (Hcc) Tobacco Use Disorder Other Acquired Deformity of Toe Pain in Limb Dermatophytosis of Nail Corns and Callosities Venous Insufficiency Pain in Joint, Shoulder Region Chronic Pain Lumbar Disc Displacement Without Myelopathy Ddd (Degenerative Disc Disease), Lumbar Asthma ([facility]) Type 2 Diabetes, Controlled, With Neuropathy ([facility]) Essential Hypertension With Goal Blood Pressure Less Than 140/90 Acquired Hypothyroidism Obstructive Sleep Apnea Factor V Leiden ([facility]) Chronic Pulmonary Embolism Without Acute Cor Pulmonale ([facility]) Requires Continuous At Home Supplemental Oxygen Pulmonary Emphysema ([facility]) Obesity, Class II, Bmi 35-39.9 Family History of Malignant Hypertension Dizziness Bppv (Benign Paroxysmal Positional Vertigo), Unspecified Laterality Coronary Artery Disease Involving [place] Coronary Artery of [place] Heart Without Angina Pectoris PAST MEDICAL HISTORY Diagnosis Date Chronic pain Displacement of intervertebral disc, site unspecified, without myelopathy 05/06/2005 DVT (deep venous thrombosis) ([facility]) Esophageal reflux Factor V Leiden mutation ([facility]) Generalized osteoarthrosis, unspecified site Hypothyroidism Myalgia and myositis, unspecified Neuralgia, neuritis, and radiculitis, unspecified Obesity, unspecified LEONEL (obstructive sleep apnea) Pulmonary embolism ([facility]) 03/2020 Spondylosis of unspecified site without mention of myelopathy Thoracic or lumbosacral neuritis or radiculitis, unspecified 04/01/2005 Type 2 diabetes mellitus ([facility]) Unspecified essential hypertension Past medical history reviewed. ALLERGIES Allergen Reactions Latex Intolerance Headache, dizzy, trouble breathing Zomig [Zolmitriptan] Mental Status Change Medication List Medication Directions Comments Action/Plan albuterol HFA (VENTOLIN HFA) 90 mcg/actuation inhaler INHALE 2 PUFFS ORALLY DIRECTED EVERY 4 HOURS NEEDED apixaban (ELIQUIS) 5 mg tab(s) Take 1 tablet by mouth two times a day. atorvastatin (LIPITOR) 40 mg tablet Take 1 tablet by mouth once daily. blood sugar diagnostic (BLOOD GLUCOSE TEST) test strip Use as instructed to check blood sugar twice daily. Please fill with brand covered by patient's insurance. Blood-Glucose Sensor (FREESTYLE MANDEEP 3 PLUS SENSOR) nadeem Apply new sensor every fifteen (15) days to upper arm. qdmjnxgufg-njabjsvj-oovvfaphgz (BREZTRI AEROSPHERE) 160-9-4.8 mcg/actuation HFA aerosol inhaler Inhale 2 Puffs as instructed two times a day. DULoxetine (CYMBALTA) 60 mg capsule Take 1 capsule by mouth two times a day. ergocalciferol 50,000 unit capsule (VITAMIN D2, DRISDOL) Take 1 capsule by mouth two times a week for 30 days, THEN 1 capsule one time a week. furosemide (LASIX) 40 mg tablet Take 1 tablet by mouth once daily. gabapentin (NEURONTIN) 300 mg capsule Take 1 capsule by mouth two times a day for 180 days. glimepiride (AMARYL) 4 mg tablet Take 1 tablet by mouth two times a day with meals. Discontinued: 04/02/2025 8:17 AM guaiFENesin (MUCINEX) 600 mg 12 hr tablet Take 2 tablets by mouth two times a day as needed for cold/allergy symptoms. ipratropium-albuterol (DUONEB) 0.5 mg-3 mg(2.5 mg base)/3 mL nebu Inhale 3 mL as instructed every 6 hours as needed for wheezing/shortness of breath. Lancets Use as instructed to check blood sugar twice daily and as needed. levothyroxine (SYNTHROID) 200 mcg tablet Take 1 tablet by mouth once daily. Take on empty stomach. For Thyroid. levothyroxine (SYNTHROID) 88 mcg tablet Take 1 tablet by mouth once daily. Take 1 tablet by mouth once daily. Take on empty stomach. For Thyroid. To be taken with Levothyroxine 200 mcg tablet to make 288 mcg lisinopril (ZESTRIL) 20 mg tablet Take 1 tablet by mouth once daily. Discontinued: 04/02/2025 8:17 AM Meclizine HCl 50 mg tablet Take 50 mg by mouth two times a day as needed (dizziness). metFORMIN ER (GLUCOPHAGE XR) 500 mg 24 hr tablet Take 2 tablets by mouth two times a day. Nebulizer Accessories kit 1 kit as needed. Discontinued: 04/02/2025 8:17 AM omeprazole (PRILOSEC) 40 mg capsule Take 1 capsule by mouth once daily. Exam: There were no vitals taken for this visit. Last 3 Encounter BP Readings: Date: BP: 02/06/2025 141/85 01/16/2025 140/92 11/03/2024 152/83 Wt: 145.8 kg (321 lb 6.4 oz) BMI: 43.59 kg/(m^2) LABS: Reviewed Lab Results Component Value Date HBA1C 9.0 01/16/2025 HBA1C 8.6 03/07/2024 HBA1C 5.9 09/07/2023 HBA1C 11.9 01/31/2021 HBA1C 8.9 09/20/2020 HBA1C 6.8 07/17/2019 CMP: Glucose 162 01/16/2025 BUN 13 01/16/2025 Creatinine 0.80 01/16/2025 Sodium 136 01/16/2025 Potassium 4.3 01/16/2025 Chloride 96 01/16/2025 CO2 26 01/16/2025 Protein, Total 7.4 01/16/2025 Albumin 4.1 01/16/2025 Calcium 9.8 01/16/2025 Alkaline Phosphatase 107 01/16/2025 Bilirubin, Total 0.6 01/16/2025 AST 21 01/16/2025 ALT 15 01/16/2025 eGFR 101 Lab Results Component Value Date CHOL 202 01/16/2025 CHOL 140 01/31/2021 LDL 132 01/16/2025 LDL 58 03/07/2024 LDL 77 01/31/2021 HDL 35 01/16/2025 HDL 30 01/31/2021 TG 195 01/16/2025 TG 163 01/31/2021 The 10-year ASCVD risk score ([place] KOWALSKI, et al., 2019) is: 42% Values used to calculate the score: Age: 60 years Clincally relevant sex: Male Is Non- : No Diabetic: Yes Tobacco smoker: Yes Systolic Blood Pressure: 141 mmHg Is BP treated: Yes HDL Cholesterol: 35 mg/dL Total Cholesterol: 202 mg/dL Albumin/Creat Ratio (mg/g) Date Value 09/20/2018 33 (H) PHARMACOTHERAPY ASSESSMENT/PLAN: 1. Type 2 diabetes, controlled, with neuropathy (HCC) - ICD9: 250.60, 357.2, ICD10: E11.40 A1c goal < 7%; uncontrolled (last A1c 9%); no SMBG log to review because he forgot to start checking; reports taking meds consistently and tolerating fine; will initiate Trulicity today despite not having SMBGs to review given his hx of CAD, obesity, and (+) sx hyperglycemia; f/up in 4 weeks INITIATE Trulicity 0.75mg weekly Pt denies personal/family hx of any thyroid cancers; denies personal issues with pancreatitis or gall bladder disease; has yearly eye exams and denies retinopathy. Counseled on potential for GI ADRs. Advised to contact office if having any sharp stabbing abdominal pains or severe cramping, or if having significant N/V/D Discussed ways to mitigate GI ADRs (ie don't overeat, avoid greasy/fatty/fried foods) Continue other medications Stressed the importance of med adherence and weight loss on overall health Advised to start daily SMBG of fasting blood sugars To discuss smoking cessation further at upcoming visit - DULAGLUTIDE 0.75 MG/0.5 ML SUBCUTANEOUS PEN INJECTOR Health Maintenance - Diabetes Topic Date Due Dilated Retinal Exam 08/09/2019 Urine Albumin:Creatinine Ratio 09/20/2019 Diabetic Foot Exam 01/05/2020 Follow-up Patient is scheduled to see PCP team on 04/24. Patient to have f/up with PharmD team on 04/30. Patient verbalized understanding of instructions. Marky Scott PharmD, BCPS Primary Care Clinical Pharmacist Time spent: 21 mins documented in this encounter [facility] 04-09-2025 Note HNO ID: [id number] Author: MARKY SCOTT RPh Service: ? Author Type: Pharmacist Type: Progress Notes Filed: 04/09/2025 13:30 Note Text: Primary Care Pharmacy Visit CC (Reason for Consult): Diabetes (E11.40) Type 2 diabetes, controlled, with neuropathy (HCC) (primary encounter diagnosis) Goal: A1c < 7% Referring Provider: Micky Cabezas CNP Last Collaborating Provider Visit: 01/16/25 Lucas Mccabe is a 60 year old male presenting for follow up visit telephone call. Patient consents to pharmacy collaborative practice agreement. Interim Events: 12/06: ED for confusion 01/16: gabapentin increased; labs later returned --> pt started on vitamin D supplement, levothyroxine was increased, glimepiride increased and referred to PharmD for DM mngt 02/05: initial PharmD visit; pt reported significant med nonadherence; metformin IR switched to ER; atorvastatin increased; CGM ordered; adherence tips provided 03/12: no med changes since no Bgs to review HPI: Patient said he just finished eating at [employer], only has a little bit of time to talk. States that he has not checked his sugar, he forgot. Not using CGM. Reports he does have supplies at home but batteries are in glucometer. Energy level is better but not great. Usually feels thirsty at night, not too much during the day. Occasional dry mouth. Denies frequent urination. Does wake up 3-4x/night to urinate. Does see an eye doctor, thinks last visit was earlier this year. Denies any issues. Current DM Medications: Metformin ER 500mg tabs - 1000mg BID Glimepiride 4mg BID Past DM medications: None Preventative Medications: On LYNETTE/ARB: Yes On Statin: Yes ROS: Patient denies CP, SOB, ARORA, blurred vision, dizziness or lightheadedness Patient denies symptoms of hypoglycemia (sweating, anxiety, palpitations, hunger, and tremor) Patient reports symptoms of hyperglycemia (polyuria, polydipsia) Patient denies potential medication adverse effects DIET/EXERCISE/SOCIAL Hx: Trying to be more mindful of what he is eating. Trying to eat less pizza (eating 4 slices instead of 8 slices); has cut back on sodas Exercise: doesn't move very much MEDICATIONS: Pill bottles are not present. Adherence: reports missed doses of meds maybe once per week, doing better. Pharmacy: [facility] [address] [place] [id number] [address] [facility] - [phone] Rx coverage: Payor: [facility] / Plan: [facility] MEDICARE / Product Type: Medicare / ACTIVE PROBLEM LIST Thoracic Or Lumbosacral Neuritis Or Radiculitis, Unspecified Displacement of Intervertebral Disc, Site Unspecified, Without Myelopathy Pmh - Past Medical History of Spondylosis of Unspecified Site Without Mention of Myelopathy Myalgia and Myositis, Unspecified Neuralgia, Neuritis, and Radiculitis, Unspecified Embolism and Thrombosis (Hcc) Generalized Osteoarthrosis, Unspecified Site Esophageal Reflux Essential Hypertension Spinal Stenosis, Lumbar Region, Without Neurogenic Claudication Primary Hypercoagulable State (Hcc) Tobacco Use Disorder Other Acquired Deformity of Toe Pain in Limb Dermatophytosis of Nail Corns and Callosities Venous Insufficiency Pain in Joint, Shoulder Region Chronic Pain Lumbar Disc Displacement Without Myelopathy Ddd (Degenerative Disc Disease), Lumbar Asthma (Hcc) Type 2 Diabetes, Controlled, With Neuropathy ([facility]) Essential Hypertension With Goal Blood Pressure Less Than 140/90 Acquired Hypothyroidism Obstructive Sleep Apnea Factor V Leiden ([facility]) Chronic Pulmonary Embolism Without Acute Cor Pulmonale ([facility]) Requires Continuous At Home Supplemental Oxygen Pulmonary Emphysema ([facility]) Obesity, Class II, Bmi 35-39.9 Family History of Malignant Hypertension Dizziness Bppv (Benign Paroxysmal Positional Vertigo), Unspecified Laterality Coronary Artery Disease Involving [place] Coronary Artery of [place] Heart Without Angina Pectoris PAST MEDICAL HISTORY Diagnosis Date Chronic pain Displacement of intervertebral disc, site unspecified, without myelopathy 05/06/2005 DVT (deep venous thrombosis) ([facility]) Esophageal reflux Factor V Leiden mutation ([facility]) Generalized osteoarthrosis, unspecified site Hypothyroidism Myalgia and myositis, unspecified Neuralgia, neuritis, and radiculitis, unspecified Obesity, unspecified LEONEL (obstructive sleep apnea) Pulmonary embolism ([facility]) 03/2020 Spondylosis of unspecified site without mention of myelopathy Thoracic or lumbosacral neuritis or radiculitis, unspecified 04/01/2005 Type 2 diabetes mellitus ([facility]) Unspecified essential hypertension Past medical history reviewed. ALLERGIES Allergen Reactions Latex Intolerance Headache, dizzy, trouble breathing Zomig [Zolmitriptan] Mental Status Change Medication List Medication Directions Comments Action/Plan albuterol HFA (VENTOLIN HFA) 90 mcg/actuation inhaler INHALE 2 PUFFS ORALLY DIRECTED EV (more content not included)... [facility] 04-09-2025 Telephone encounter Note Pt notified. Vanessa Capone MA [facility] 04-09-2025 Miscellaneous Notes Pt notified. Vanessa Capone MA Please let the patient know that insurance will not cover the 50 mg of Meclizine. Will only 25 mg. New RX sent. The following approved medication requests have been transmitted electronically. Requested Prescriptions Signed Prescriptions Disp Refills meclizine (ANTIVERT) 25 mg tab 90 tablet 1 Sig: Take 1 tablet by mouth every 6 hours as needed (for dizziness). Authorizing Provider: MICKY CABEZAS APRN.CNP PA for meclizine 50mg. Insurance is asking if this can be meclizine 25mg or complete PA? documented in this encounter [facility] 04-09-2025 Telephone encounter Note Please let the patient know that insurance will not cover the 50 mg of Meclizine. Will only 25 mg. New RX sent. The following approved medication requests have been transmitted electronically. Requested Prescriptions Signed Prescriptions Disp Refills meclizine (ANTIVERT) 25 mg tab 90 tablet 1 Sig: Take 1 tablet by mouth every 6 hours as needed (for dizziness). Authorizing Provider: MICKY CABEZAS APRN.CNP [facility] 04-06-2025 Telephone encounter Note PA for meclizine 50mg. Insurance is asking if this can be meclizine 25mg or complete PA? [facility] 04-02-2025 Telephone encounter Note The following approved medication requests have been transmitted electronically. Requested Prescriptions Pending Prescriptions Disp Refills guaiFENesin (MUCINEX) 600 mg 12 hr tablet 28 tablet 1 Sig: Take 2 tablets by mouth two times a day as needed for cold/allergy symptoms. Meclizine HCl 50 mg tablet 30 tablet 0 Sig: Take 50 mg by mouth two times a day as needed (dizziness). omeprazole (PRILOSEC) 40 mg capsule 31 capsule 11 Sig: Take 1 capsule by mouth once daily. Micky Cabezas APRN.CNP [facility] 04-02-2025 Miscellaneous Notes The following approved medication requests have been transmitted electronically. Requested Prescriptions Pending Prescriptions Disp Refills guaiFENesin (MUCINEX) 600 mg 12 hr tablet 28 tablet 1 Sig: Take 2 tablets by mouth two times a day as needed for cold/allergy symptoms. Meclizine HCl 50 mg tablet 30 tablet 0 Sig: Take 50 mg by mouth two times a day as needed (dizziness). omeprazole (PRILOSEC) 40 mg capsule 31 capsule 11 Sig: Take 1 capsule by mouth once daily. Micky Cabezas APRN.CNP Prescription Refill Information The patient has been identified by name and date of : Yes Caregiver verified no other encounters exist for this prescription request: Yes Caregiver confirmed with patient/requestor that no other refills are due, in the near future, with this provider at this time: Yes The last office visit in the department: 01/16/25 Does the patient have a future office visit with this provider/department: Yes 04/24/25 Requested Prescriptions Pending Prescriptions Disp Refills guaiFENesin (MUCINEX) 600 mg 12 hr tablet 28 tablet 1 Sig: Take 2 tablets by mouth two times a day as needed for cold/allergy symptoms. Meclizine HCl 50 mg tablet 30 tablet 0 Sig: Take 50 mg by mouth two times a day as needed (dizziness). omeprazole (PRILOSEC) 40 mg capsule 31 capsule 11 Sig: Take 1 capsule by mouth once daily. Shaye Garza March 30, 2025 11:26 AM documented in this encounter [facility] 03-30-2025 Telephone encounter Note Prescription Refill Information The patient has been identified by name and date of : Yes Caregiver verified no other encounters exist for this prescription request: Yes Caregiver confirmed with patient/requestor that no other refills are due, in the near future, with this provider at this time: Yes The last office visit in the department: 01/16/25 Does the patient have a future office visit with this provider/department: Yes 04/24/25 Requested Prescriptions Pending Prescriptions Disp Refills guaiFENesin (MUCINEX) 600 mg 12 hr tablet 28 tablet 1 Sig: Take 2 tablets by mouth two times a day as needed for cold/allergy symptoms. Meclizine HCl 50 mg tablet 30 tablet 0 Sig: Take 50 mg by mouth two times a day as needed (dizziness). omeprazole (PRILOSEC) 40 mg capsule 31 capsule 11 Sig: Take 1 capsule by mouth once daily. Shaye Garza March 30, 2025 11:26 AM [facility] 03-12-2025 History of Present illness Narrative Primary Care Pharmacy Visit CC (Reason for Consult): Diabetes (E11.40) Type 2 diabetes, controlled, with neuropathy (HCC) (primary encounter diagnosis) Goal: A1c < 7% Referring Provider: Micky Cabezas CNP Last Collaborating Provider Visit: 01/16/25 Lucas Mccabe is a 60 year old male presenting for follow up visit telephone call. Patient consents to pharmacy collaborative practice agreement. Interim Events: 12/06: ED for confusion 01/16: gabapentin increased; labs later returned --> pt started on vitamin D supplement, levothyroxine was increased, glimepiride increased and referred to PharmD for DM mngt 02/05: initial PharmD visit; pt reported significant med nonadherence; metformin IR switched to ER; atorvastatin increased; CGM ordered; adherence tips provided HPI: Received CGM, says he is having trouble getting the sensors to stick and has trouble connecting it to his phone. Thinks he has tried 2-3 sensors. Says phone is programed. Son helped him insert it. Not doing any fingersticks. Thinks he is doing much better with medication adherence except for this week when he missed some doses. Over the past month thinks he has missed meds 2-3 times. Energy level is doing better. Thinks he may be peeing a little more, still taking Lasix. Waking up 1-2x/night to pee. Still having dry mouth but no longer constant. Happens a lot at night. Stomach issues are much better since switching to the ER metformin. Increased atorvastatin, feeling fine. Current DM Medications: Metformin ER 500mg tabs - 1000mg BID Glimepiride 4mg BID Past DM medications: None Preventative Medications: On LYNETTE/ARB: Yes On Statin: Yes ROS: Patient denies CP, SOB, ARORA, blurred vision, dizziness or lightheadedness Patient denies symptoms of hypoglycemia (sweating, anxiety, palpitations, hunger, and tremor) Patient reports symptoms of hyperglycemia (polyuria, polydipsia, polyphagia) Patient denies potential medication adverse effects DIET/EXERCISE/SOCIAL Hx: No changes Eats 1-2x/day Breakfast: usually skips Lunch: pizza (1 whole [employer] large pizza, 8 slices); it's cheap; today having a Baconater sandwich Dinner: several sandwiches or hamburger Snacks: potato chips, doesn't snack often Beverages: water, coffee; sometimes pop (regular Dr. Inman, 1 can daily, usually 3 cans/week) Exercise: has trouble walking; very sedentary, doesn't do much Tobacco: smokes little cigars, #20/day; reports interest in quitting MEDICATIONS: Pill bottles are not present. Adherence: reports missed doses 2-3 times this month. Pharmacy: [facility] [address] [place] [id number] [address] [facility] - [phone] Rx coverage: Payor: [employer] / Plan: [employer] / Product Type: Medicare / Medications affordable? Yes Diabetes Supplies: Yes Organization system: ACTIVE PROBLEM LIST Thoracic Or Lumbosacral Neuritis Or Radiculitis, Unspecified Displacement of Intervertebral Disc, Site Unspecified, Without Myelopathy Pmh - Past Medical History of Spondylosis of Unspecified Site Without Mention of Myelopathy Myalgia and Myositis, Unspecified Neuralgia, Neuritis, and Radiculitis, Unspecified Embolism and Thrombosis (Hcc) Generalized Osteoarthrosis, Unspecified Site Esophageal Reflux Essential Hypertension Spinal Stenosis, Lumbar Region, Without Neurogenic Claudication Primary Hypercoagulable State (Hcc) Tobacco Use Disorder Other Acquired Deformity of Toe Pain in Limb Dermatophytosis of Nail Corns and Callosities Venous Insufficiency Pain in Joint, Shoulder Region Chronic Pain Lumbar Disc Displacement Without Myelopathy Ddd (Degenerative Disc Disease), Lumbar Asthma ([facility]) Type 2 Diabetes, Controlled, With Neuropathy ([facility]) Essential Hypertension With Goal Blood Pressure Less Than 140/90 Acquired Hypothyroidism Obstructive Sleep Apnea Factor V Leiden ([facility]) Chronic Pulmonary Embolism Without Acute Cor Pulmonale ([facility]) Requires Continuous At Home Supplemental Oxygen Pulmonary Emphysema ([facility]) Obesity, Class II, Bmi 35-39.9 Family History of Malignant Hypertension Dizziness Bppv (Benign Paroxysmal Positional Vertigo), Unspecified Laterality Coronary Artery Disease Involving [place] Coronary Artery of [place] Heart Without Angina Pectoris PAST MEDICAL HISTORY Diagnosis Date Chronic pain Displacement of intervertebral disc, site unspecified, without myelopathy 05/06/2005 DVT (deep venous thrombosis) ([facility]) Esophageal reflux Factor V Leiden mutation ([facility]) Generalized osteoarthrosis, unspecified site Hypothyroidism Myalgia and myositis, unspecified Neuralgia, neuritis, and radiculitis, unspecified Obesity, unspecified LEONEL (obstructive sleep apnea) Pulmonary embolism ([facility]) 03/2020 Spondylosis of unspecified site without mention of myelopathy Thoracic or lumbosacral neuritis or radiculitis, unspecified 04/01/2005 Type 2 diabetes mellitus ([facility]) Unspecified essential hypertension Past medical history reviewed. ALLERGIES Allergen Reactions Latex Intolerance Headache, dizzy, trouble breathing Zomig [Zolmitriptan] Mental Status Change Medication List Medication Directions Comments Action/Plan albuterol HFA (VENTOLIN HFA) 90 mcg/actuation inhaler INHALE 2 PUFFS ORALLY DIRECTED EVERY 4 HOURS NEEDED apixaban (ELIQUIS) 5 mg tab(s) Take 1 tablet by mouth two times a day. atorvastatin (LIPITOR) 40 mg tablet Take 1 tablet by mouth once daily. Blood-Glucose Sensor (FREESTYLE MANDEEP 3 PLUS SENSOR) nadeem Apply new sensor every fifteen (15) days to upper arm. ycfhsvbwye-fuiyjhwa-afoeydzdwt (BREZTRI AEROSPHERE) 160-9-4.8 mcg/actuation HFA aerosol inhaler Inhale 2 Puffs as instructed two times a day. DULoxetine (CYMBALTA) 60 mg capsule Take 1 capsule by mouth two times a day. ergocalciferol 50,000 unit capsule (VITAMIN D2, DRISDOL) Take 1 capsule by mouth two times a week for 30 days, THEN 1 capsule one time a week. furosemide (LASIX) 40 mg tablet Take 1 tablet by mouth once daily. gabapentin (NEURONTIN) 300 mg capsule Take 1 capsule by mouth two times a day for 180 days. glimepiride (AMARYL) 4 mg tablet Take 1 tablet by mouth two times a day with meals. guaiFENesin (MUCINEX) 600 mg 12 hr tablet Take 2 tablets by mouth two times a day as needed for cold/allergy symptoms. ipratropium-albuterol (DUONEB) 0.5 mg-3 mg(2.5 mg base)/3 mL nebu Inhale 3 mL as instructed every 6 hours as needed for wheezing/shortness of breath. levothyroxine (SYNTHROID) 200 mcg tablet Take 1 tablet by mouth once daily. Take on empty stomach. For Thyroid. levothyroxine (SYNTHROID) 88 mcg tablet Take 1 tablet by mouth once daily. Take 1 tablet by mouth once daily. Take on empty stomach. For Thyroid. To be taken with Levothyroxine 200 mcg tablet to make 288 mcg lisinopril (ZESTRIL) 20 mg tablet Take 1 tablet by mouth once daily. Meclizine HCl 50 mg tablet Take 50 mg by mouth two times a day as needed (dizziness). metFORMIN ER (GLUCOPHAGE XR) 500 mg 24 hr tablet Take 2 tablets by mouth two times a day. Nebulizer Accessories kit 1 kit as needed. omeprazole (PRILOSEC) 40 mg capsule Take 1 capsule by mouth once daily. Exam: There were no vitals taken for this visit. Last 3 Encounter BP Readings: Date: BP: 02/06/2025 141/85 01/16/2025 140/92 11/03/2024 152/83 Wt: 145.8 kg (321 lb 6.4 oz) BMI: 43.59 kg/(m^2) LABS: Reviewed Lab Results Component Value Date HBA1C 9.0 01/16/2025 HBA1C 8.6 03/07/2024 HBA1C 5.9 09/07/2023 HBA1C 11.9 01/31/2021 HBA1C 8.9 09/20/2020 HBA1C 6.8 07/17/2019 CMP: Glucose 162 01/16/2025 BUN 13 01/16/2025 Creatinine 0.80 01/16/2025 Sodium 136 01/16/2025 Potassium 4.3 01/16/2025 Chloride 96 01/16/2025 CO2 26 01/16/2025 Protein, Total 7.4 01/16/2025 Albumin 4.1 01/16/2025 Calcium 9.8 01/16/2025 Alkaline Phosphatase 107 01/16/2025 Bilirubin, Total 0.6 01/16/2025 AST 21 01/16/2025 ALT 15 01/16/2025 eGFR 101 Lab Results Component Value Date CHOL 202 01/16/2025 CHOL 140 01/31/2021 LDL 132 01/16/2025 LDL 58 03/07/2024 LDL 77 01/31/2021 HDL 35 01/16/2025 HDL 30 01/31/2021 TG 195 01/16/2025 TG 163 01/31/2021 The 10-year ASCVD risk score ([place] KOWALSKI, et al., 2019) is: 42% Values used to calculate the score: Age: 60 years Sex: Male Is Non- : No Diabetic: Yes Tobacco smoker: Yes Systolic Blood Pressure: 141 mmHg Is BP treated: Yes HDL Cholesterol: 35 mg/dL Total Cholesterol: 202 mg/dL Albumin/Creat Ratio (mg/g) Date Value 09/20/2018 33 (H) PHARMACOTHERAPY ASSESSMENT/PLAN: 1. Type 2 diabetes, controlled, with neuropathy (HCC) - ICD9: 250.60, 357.2, ICD10: E11.40 A1c goal < 7%; uncontrolled (last A1c 9%); no SMBGs to review; hyperglycemia sx improved since improving adherence with medications; no lows; indicated for GLP1 or SGLT2i given hx of CAD - will consider adding at next visit once there are Bgs to review Continue current regimen Advised to call [employer] customer service to request more sensors and get tips on having sensor stick better. Counseled on some times for improved sensor adhesion and also suggested purchasing overlay patches and Skin Tac. Scripts for fingerstick supplies sent if can't get CGM to work - requested checking FBG 3-4x/week and have Bgs ready to review for next visit Advised cutting back on pizza, fast food, and soda. Stop soda, incorporate vegetables into diet. - BLOOD-GLUCOSE METER - BLOOD SUGAR DIAGNOSTIC STRIPS - LANCETS - ALBUMIN/CREATININE RATIO, URINE - LANCING DEVICE 2. Tobacco use disorder - ICD9: 305.1, ICD10: F17.200 Contemplation stage of change; likes the idea of quitting but not committed; smoking 20 mini cigars daily; open to discussing cessation at future visits Discussed physiologic and physical aspects of tobacco addiction as well as strategies for quitting Counseling provided focusing on the harmful effects of this addiction especially given the patient's medical condition(s) which will be worsened because of the chemicals in tobacco Health Maintenance - Diabetes Topic Date Due Dilated Retinal Exam 08/09/2019 Urine Albumin:Creatinine Ratio 09/20/2019 Diabetic Foot Exam 01/05/2020 Follow-up Patient is scheduled to see PCP team on 04/24. Patient to have f/up with PharmD team on 04/09. Patient verbalized understanding of instructions. Marky Scott PharmD, [facility] Primary Care Clinical Pharmacist Time spent: 30 mins documented in this encounter [facility] 03-12-2025 Note HNO ID: [id number] Author: MARKY SCOTT RPh Service: ? Author Type: Pharmacist Type: Progress Notes Filed: 03/12/2025 13:44 Note Text: Primary Care Pharmacy Visit CC (Reason for Consult): Diabetes (E11.40) Type 2 diabetes, controlled, with neuropathy (HCC) (primary encounter diagnosis) Goal: A1c < 7% Referring Provider: Micky Cabezas CNP Last Collaborating Provider Visit: 01/16/25 Lucas Mccabe is a 60 year old male presenting for follow up visit telephone call. Patient consents to pharmacy collaborative practice agreement. Interim Events: 12/06: ED for confusion 01/16: gabapentin increased; labs later returned --> pt started on vitamin D supplement, levothyroxine was increased, glimepiride increased and referred to PharmD for DM mngt 02/05: initial PharmD visit; pt reported significant med nonadherence; metformin IR switched to ER; atorvastatin increased; CGM ordered; adherence tips provided HPI: Received CGM, says he is having trouble getting the sensors to stick and has trouble connecting it to his phone. Thinks he has tried 2-3 sensors. Says phone is programed. Son helped him insert it. Not doing any fingersticks. Thinks he is doing much better with medication adherence except for this week when he missed some doses. Over the past month thinks he has missed meds 2-3 times. Energy level is doing better. Thinks he may be peeing a little more, still taking Lasix. Waking up 1-2x/night to pee. Still having dry mouth but no longer constant. Happens a lot at night. Stomach issues are much better since switching to the ER metformin. Increased atorvastatin, feeling fine. Current DM Medications: Metformin ER 500mg tabs - 1000mg BID Glimepiride 4mg BID Past DM medications: None Preventative Medications: On LYNETTE/ARB: Yes On Statin: Yes ROS: Patient denies CP, SOB, ARORA, blurred vision, dizziness or lightheadedness Patient denies symptoms of hypoglycemia (sweating, anxiety, palpitations, hunger, and tremor) Patient reports symptoms of hyperglycemia (polyuria, polydipsia, polyphagia) Patient denies potential medication adverse effects DIET/EXERCISE/SOCIAL Hx: No changes Eats 1-2x/day Breakfast: usually skips Lunch: pizza (1 whole [employer] large pizza, 8 slices); it's cheap; today having a Baconater sandwich Dinner: several sandwiches or hamburger Snacks: potato chips, doesn't snack often Beverages: water, coffee; sometimes pop (regular Dr. Inman, 1 can daily, usually 3 cans/week) Exercise: has trouble walking; very sedentary, doesn't do much Tobacco: smokes little cigars, #20/day; reports interest in quitting MEDICATIONS: Pill bottles are not present. Adherence: reports missed doses 2-3 times this month. Pharmacy: [facility] [address] [place] [address] - [phone] [facility] [phone] Rx coverage: Payor: [facility] MEDIC[facility] / Plan: [facility] MEDIC[facility] / Product Type: Medicare / Medications affordable? Yes Diabetes Supplies: Yes Organization system: ACTIVE PROBLEM LIST Thoracic Or Lumbosacral Neuritis Or Radiculitis, Unspecified Displacement of Intervertebral Disc, Site Unspecified, Without Myelopathy Pmh - Past Medical History of Spondylosis of Unspecified Site Without Mention of Myelopathy Myalgia and Myositis, Unspecified Neuralgia, Neuritis, and Radiculitis, Unspecified Embolism and Thrombosis (Hcc) Generalized Osteoarthrosis, Unspecified Site Esophageal Reflux Essential Hypertension Spinal Stenosis, Lumbar Region, Without Neurogenic Claudication Primary Hypercoagulable State (Hcc) Tobacco Use Disorder Other Acquired Deformity of Toe Pain in Limb Dermatophytosis of Nail Corns and Callosities Venous Insufficiency Pain in Joint, Shoulder Region Chronic Pain Lumbar Disc Displacement Without Myelopathy Ddd (Degenerative Disc Disease), Lumbar Asthma (Hcc) Type 2 Diabetes, Controlled, With Neuropathy (Hcc) Essential Hypertension With Goal Blood Pressure Less Than 140/90 Acquired Hypothyroidism Obstructive Sleep Apnea Factor V Leiden (Hcc) Chronic Pulmonary Embolism Without Acute Cor Pulmonale (Hcc) Requires Continuous At Home Supplemental Oxygen Pulmonary Emphysema ([facility]) Obesity, Class II, Bmi 35-39.9 Family History of Malignant Hypertension Dizziness Bppv (Benign Paroxysmal Positional Vertigo), Unspecified Laterality Coronary Artery Disease Involving [place] Coronary Artery of [place] Heart Without Angina Pectoris PAST MEDICAL HISTORY Diagnosis Date Chronic pain Displacement of intervertebral disc, site unspecified, without myelopathy 05/06/2005 DVT (deep venous thrombosis) ([facility]) Esophageal reflux Factor V Leiden mutation ([facility]) Generalized osteoarthrosis, unspecified site Hypothyroidism Myalgia and myositis, unspecified Neuralgia, neuritis, and radiculitis, unspecified Obesity, unspecified LEONEL (obstructive sleep apnea) Pulmonary embolism ([facility]) 03/2020 Spon (more content not included)... [facility] 02-06-2025 Instructions Jillian Wright APRN.DARNELL - 02/06/2025 1:27 PM EDT Continue Breztri as prescribed. Remember to rinse well after use. Continue Albuterol as needed. I ordered a nebulizer with a solution called Duoneb. Either use Duoneb or the Albuterol as a rescue. Do not use both at the same time. As we discussed, I highly recommend reducing smoking at minimum. Please let our office know if you would like any assistance. documented in this encounter [facility] 02-06-2025 History of Present illness Narrative Images from the original note were not included. Pulmonary Medicine Patients name: Lucas Mccabe PCP: Kaushik Seals MD CC: follow-up HPI: Lucas Mccabe is a 59 year old male current heavy smoker with PMH significant for morbid obesity, HTN, GERD, FVL mutation, PE/DVT, DM, hypothyroidism, COPD/GOLD 3, LEONEL not on CPAP, noncompliant with nocturnal O2, lung nodules. Referred back to pulmonary 10/2024 for COPD with c/o severe dyspnea on exertion and chronic cough. Smoking 2 ppd with no desire to quit. Updated PFT with severe obstruction. Recommended triple therapy, weight loss and smoking cessation. Re-enrolled in [facility]. Current inhaled therapy with Breztri and PRN Albuterol. He presents today for follow-up. Today, patient reports continued cough with occasional clear/yellow sputum. He has used mucinex in the past but has not used recently. Cough can be bothersome. No hemoptysis. Occasional wheezing. No dyspnea at rest. Exertional dyspnea has not changed. No fevers, chills, or night sweats. No changes in weight. No recent hospitalizations or ED visits or upper respiratory infections. Currently using Albuterol 4x a day. Continues to smoke, 1-2 packs a day. Does not desire to quit. Previously had a nebulizer but it was lost. DME: [facility] Noncompliant with nocturnal O2 PAST MEDICAL HISTORY Diagnosis Date Chronic pain Displacement of intervertebral disc, site unspecified, without myelopathy 05/06/2005 DVT (deep venous thrombosis) ([facility]) Esophageal reflux Factor V Leiden mutation ([facility]) Generalized osteoarthrosis, unspecified site Hypothyroidism Myalgia and myositis, unspecified Neuralgia, neuritis, and radiculitis, unspecified Obesity, unspecified LEONEL (obstructive sleep apnea) Pulmonary embolism (HCC) 03/2020 Spondylosis of unspecified site without mention of myelopathy Thoracic or lumbosacral neuritis or radiculitis, unspecified 04/01/2005 Type 2 diabetes mellitus (HCC) Unspecified essential hypertension Allergies: Latex Intolerance Comment:Headache, dizzy, trouble breathing Zomig [Zolmitriptan] Mental Status Change Medication List Accurate as of February 04, 2025 1:15 PM. If you have any questions, ask your nurse or doctor. CONTINUE taking these medications albuterol HFA 90 mcg/actuation inhaler Commonly known as: VENTOLIN HFA INHALE 2 PUFFS ORALLY DIRECTED EVERY 4 HOURS NEEDED apixaban 5 mg tab(s) Commonly known as: ELIQUIS Take 1 tablet by mouth two times a day. atorvastatin 10 mg tablet Commonly known as: LIPITOR Take 1 tablet by mouth once daily. blood sugar diagnostic test strip Commonly known as: BLOOD GLUCOSE TEST Test blood sugar(s) 1 times daily. Dx: Type 2 DM - Uncontrolled E11.65 Insulin: No Blood-Glucose Meter monitoring kit Glucose Meter of Choice - Kit - Dx: Type 2 DM - Uncontrolled .65 BREZTRI AEROSPHERE 160-9-4.8 mcg/actuation HFA aerosol inhaler Generic drug: [id number]-nvxeazkk-ochnmngrzo Inhale 2 Puffs as instructed two times a day. DULoxetine 60 mg capsule Commonly known as: CYMBALTA Take 1 capsule by mouth two times a day. ergocalciferol (vitamin D2) 50,000 unit capsule Commonly known as: VITAMIN D2 Take 1 capsule by mouth two times a week for 30 days, THEN 1 capsule one time a week. Start taking on: January 17, 2025 furosemide 40 mg tablet Commonly known as: LASIX Take 1 tablet by mouth once daily. gabapentin 300 mg capsule Commonly known as: NEURONTIN Take 1 capsule by mouth two times a day for 180 days. glimepiride 4 mg tablet Commonly known as: AMARYL Take 1 tablet by mouth two times a day with meals. guaiFENesin 600 mg 12 hr tablet Commonly known as: MUCINEX Take 2 tablets by mouth two times a day as needed for cold/allergy symptoms. Lancets Test blood sugar(s) 1 times daily. Dx: Type 2 DM - Uncontrolled 65 Insulin: No * levothyroxine 200 mcg tablet Commonly known as: SYNTHROID Take 1 tablet by mouth once daily. Take on empty stomach. For Thyroid. * levothyroxine 88 mcg tablet Commonly known as: SYNTHROID Take 1 tablet by mouth once daily. Take 1 tablet by mouth once daily. Take on empty stomach. For Thyroid. To be taken with Levothyroxine 200 mcg tablet to make 288 mcg lisinopril 20 mg tablet Commonly known as: ZESTRIL Take 1 tablet by mouth once daily. Meclizine HCl 50 mg tablet Take 50 mg by mouth two times a day as needed (dizziness). metFORMIN 500 mg tablet Commonly known as: GLUCOPHAGE Take 2 tablets by mouth daily with breakfast. omeprazole 40 mg capsule Commonly known as: PriLOSEC Take 1 capsule by mouth once daily. * This list has 2 medication(s) that are the same as other medications prescribed for you. Read the directions carefully, and ask your doctor or other care provider to review them with you. DATA: I personally reviewed and analyzed all labs, radiographs and available pulmonary function testing PFT: 10/2024 Spirometry indicates severe obstruction. The increase in FEF 25-75 post-bronchodilator reflects an improvement in the small airway obstruction. The diffusing capacity (uncorrected for hemoglobin) is reduced. CTA Chest: 10/2022 RESULT: Limitations: None. Lines, tubes, and devices: None. Lung parenchyma and pleura: Images of the lung parenchyma are degraded by respiratory motion. Mild subpleural reticulation is noted bilaterally, likely related to nonspecific interstitial lung abnormalities. Mild emphysema is noted, predominantly paraseptal in distribution. Few small (< 5 mm) lung nodules are noted. For example, there is a 2 mm left upper lobe nodule at image 225. Another 4 mm nodule is noted at the left lung base at image 51. Most of these nodules are unchanged since prior exam. Central airways are patent. There is central and peripheral bronchial wall thickening. Review of Systems Constitutional: Negative for activity change, appetite change, fatigue and unexpected weight change. HENT: Negative for congestion, mouth sores, postnasal drip and sinus pain. Respiratory: Positive for cough, shortness of breath and wheezing. Negative for chest tightness. Cardiovascular: Negative for chest pain and palpitations. Musculoskeletal: Positive for arthralgias and myalgias. Allergic/Immunologic: Negative for environmental allergies. Neurological: Negative for weakness and headaches. BP 141/85 (BP Site: Right Arm, BP Position: Sitting, BP Cuff Size: Large Adult) Pulse 83 Wt (!) 145.8 kg (321 lb 6.4 oz) SpO2 94% BMI 43.59 kg/m Physical Exam Vitals reviewed. Constitutional: General: He is not in acute distress. Appearance: He is obese. He is not ill-appearing. Comments: Unkempt HENT: Head: Normocephalic. Mouth/Throat: Mouth: Mucous membranes are moist. Pharynx: No oropharyngeal exudate. Cardiovascular: Rate and Rhythm: Normal rate and regular rhythm. Pulses: Normal pulses. Pulmonary: Effort: Pulmonary effort is normal. No respiratory distress. Breath sounds: Wheezing (expiratory wheeze) present. Comments: B/l lower lobe crackles Musculoskeletal: Right lower leg: No edema. Left lower leg: No edema. Skin: General: Skin is warm and dry. Capillary Refill: Capillary refill takes less than 2 seconds. Nails: There is clubbing. Neurological: General: No focal deficit present. Mental Status: He is alert. ASSESSMENT/PLAN: 1. Stage 3 severe COPD by GOLD classification (HCC) - ICD9: 496, ICD10: J44.9 (primary diagnosis) - symptoms are persistent but at baseline. - Continue Breztri. Instructed to rinse well after use. Continue Albuterol as needed. - will provide with nebulizer to use Duoneb as needed. - smoking cessation highly advised. - NEBULIZER, WITH COMPRESSOR - NEBULIZER ACCESSORIES KIT - IPRATROPIUM 0.5 MG-ALBUTEROL 3 MG (2.5 MG BASE)/3 ML NEBULIZATION SOLN 2. Cigarette smoker - ICD9: 305.1, ICD10: F17.210 - Highly advised cessation. He does not desire to quit. Not interested in medications or NRT. - Physiologic and physical aspects of tobacco addiction as well as strategies for quitting were discussed. - Counseling was given focusing on the harmful effects of this addiction especially given the patient's medical condition(s) which will be worsened because of the chemicals in tobacco. 3. Lung nodules - ICD9: 793.19, ICD10: R91.8 - needs to reschedule with [facility] 4. Nocturnal hypoxia - ICD9: 327.24, ICD10: G47.34 - noncompliant with supplemental O2 5. Morbid obesity (HCC) - ICD9: 278.01, ICD10: E66.01 - BMI 43 - encouraged weight loss F/u 6 months Portions of this documentation were copied and pasted from previous office visit notes in order to provide a cohesive continuity of the history. The note has been reviewed and edited and updated as necessary. Jillian Wright APRN.DARNELL I spent a total of 27 minutes on the date of the service which included preparing to see the patient, [id number] patient care, completing clinical documentation, performing a medically appropriate examination, counseling and educating the patient/family/caregiver, and ordering medications, tests, or procedures. documented in this encounter [facility] 02-06-2025 Note HNO ID: [id number] Author: JILLIAN WRIGHT APRN.DIRECTOR HAIR Service: ? Author Type: Nurse Practitioner Type: Progress Notes Filed: 02/06/2025 13:37 Note Text: Pulmonary Medicine Patients name: Lucas Mccabe PCP: Kaushik Seals MD CC: follow-up HPI: Lucas Mccabe is a 59 year old male current heavy smoker with PMH significant for morbid obesity, HTN, GERD, FVL mutation, PE/DVT, DM, hypothyroidism, COPD/GOLD 3, LEONEL not on CPAP, noncompliant with nocturnal O2, lung nodules. Referred back to pulmonary 10/2024 for COPD with c/o severe dyspnea on exertion and chronic cough. Smoking 2 ppd with no desire to quit. Updated PFT with severe obstruction. Recommended triple therapy, weight loss and smoking cessation. Re-enrolled in [facility]. Current inhaled therapy with Breztri and PRN Albuterol. He presents today for follow-up. Today, patient reports continued cough with occasional clear/yellow sputum. He has used mucinex in the past but has not used recently. Cough can be bothersome. No hemoptysis. Occasional wheezing. No dyspnea at rest. Exertional dyspnea has not changed. No fevers, chills, or night sweats. No changes in weight. No recent hospitalizations or ED visits or upper respiratory infections. Currently using Albuterol 4x a day. Continues to smoke, 1-2 packs a day. Does not desire to quit. Previously had a nebulizer but it was lost. DME: [facility] Noncompliant with nocturnal O2 PAST MEDICAL HISTORY Diagnosis Date Chronic pain Displacement of intervertebral disc, site unspecified, without myelopathy 05/06/2005 DVT (deep venous thrombosis) (HCC) Esophageal reflux Factor V Leiden mutation (HCC) Generalized osteoarthrosis, unspecified site Hypothyroidism Myalgia and myositis, unspecified Neuralgia, neuritis, and radiculitis, unspecified Obesity, unspecified LEONEL (obstructive sleep apnea) Pulmonary embolism (HCC) 03/2020 Spondylosis of unspecified site without mention of myelopathy Thoracic or lumbosacral neuritis or radiculitis, unspecified 04/01/2005 Type 2 diabetes mellitus (HCC) Unspecified essential hypertension Allergies: Latex Intolerance Comment:Headache, dizzy, trouble breathing Zomig [Zolmitriptan] Mental Status Change Medication List Accurate as of February 04, 2025 1:15 PM. If you have any questions, ask your nurse or doctor. CONTINUE taking these medications albuterol HFA 90 mcg/actuation inhaler Commonly known as: VENTOLIN HFA INHALE 2 PUFFS ORALLY DIRECTED EVERY 4 HOURS NEEDED apixaban 5 mg tab(s) Commonly known as: ELIQUIS Take 1 tablet by mouth two times a day. atorvastatin 10 mg tablet Commonly known as: LIPITOR Take 1 tablet by mouth once daily. blood sugar diagnostic test strip Commonly known as: BLOOD GLUCOSE TEST Test blood sugar(s) 1 times daily. Dx: Type 2 DM - Uncontrolled E11.65 Insulin: No Blood-Glucose Meter monitoring kit Glucose Meter of Choice - Kit - Dx: Type 2 DM - Uncontrolled E11.65 BREZTRI AEROSPHERE 160-9-4.8 mcg/actuation HFA aerosol inhaler Generic drug: [id number]-vywvdybh-dbkpzjnejq Inhale 2 Puffs as instructed two times a day. DULoxetine 60 mg capsule Commonly known as: CYMBALTA Take 1 capsule by mouth two times a day. ergocalciferol (vitamin D2) 50,000 unit capsule Commonly known as: VITAMIN D2 Take 1 capsule by mouth two times a week for 30 days, THEN 1 capsule one time a week. Start taking on: January 17, 2025 furosemide 40 mg tablet Commonly known as: LASIX Take 1 tablet by mouth once daily. gabapentin 300 mg capsule Commonly known as: NEURONTIN Take 1 capsule by mouth two times a day for 180 days. glimepiride 4 mg tablet Commonly known as: AMARYL Take 1 tablet by mouth two times a day with meals. guaiFENesin 600 mg 12 hr tablet Commonly known as: MUCINEX Take 2 tablets by mouth two times a day as needed for cold/allergy symptoms. Lancets Test blood sugar(s) 1 times daily. Dx: Type 2 DM - Uncontrolled E11.65 Insulin: No * levothyroxine 200 mcg tablet Commonly known as: SYNTHROID Take 1 tablet by mouth once daily. Take on empty stomach. For Thyroid. * levothyroxine 88 mcg tablet Commonly known as: SYNTHROID Take 1 tablet by mouth once daily. Take 1 tablet by mouth once daily. Take on empty stomach. For Thyroid. To be taken with Levothyroxine 200 mcg tablet to make 288 mcg lisinopril 20 mg tablet Commonly known as: ZESTRIL Take 1 tablet by mouth once daily. Meclizine HCl 50 mg tablet Take 50 mg by mouth two times a day as needed (dizziness). metFORMIN 500 mg tablet Commonly known as: GLUCOPHAGE Take 2 tablets by mouth daily with breakfast. omeprazole 40 mg capsule Commonly known as: PriLOSEC Take 1 capsule by mouth once daily. * This list has 2 medication(s) that are the same as other medications prescribed for you. Read the directions carefully, and ask your doctor or other care provider to review them with you. DATA: I person (more content not included)... [facility] 02-06-2025 Telephone encounter Note Call to pt and notified him of message below from Provider. Pt verbalized understanding. Joaquina Peña MA [facility] 02-06-2025 Miscellaneous Notes Call to pt and notified him of message below from Provider. Pt verbalized understanding. Joaquina Peña MA Please reach out the patient in regards to his levothyroxine. He met with clinical pharmacy in the past few days where it was revealed he received 300 mcg of levothyroxine from an old prescription from his pharmacy. I would like for him to not take that dose and take the original dose that I prescribed at 288 mcg/day. This includes a 200 mcg and 88 mcg tablet. I resent to the pharmacy for him to retrieve. He has some repeat labs in a few months to recheck his TSH prior to seeing Dr. Seals. Again I would recommend that he stay consistent with taking his medications daily as he reported greater than 10 missed doses per month on average. The following approved medication requests have been transmitted electronically. Requested Prescriptions Signed Prescriptions Disp Refills levothyroxine (SYNTHROID) 200 mcg tablet 90 tablet 1 Sig: Take 1 tablet by mouth once daily. Take on empty stomach. For Thyroid. Authorizing Provider: MICKY CABEZAS levothyroxine (SYNTHROID) 88 mcg tablet 90 tablet 1 Sig: Take 1 tablet by mouth once daily. Take 1 tablet by mouth once daily. Take on empty stomach. For Thyroid. To be taken with Levothyroxine 200 mcg tablet to make 288 mcg Authorizing Provider: MICKY CABEZAS APRN.CNP documented in this encounter [facility] 02-06-2025 Telephone encounter Note Please reach out the patient in regards to his levothyroxine. He met with clinical pharmacy in the past few days where it was revealed he received 300 mcg of levothyroxine from an old prescription from his pharmacy. I would like for him to not take that dose and take the original dose that I prescribed at 288 mcg/day. This includes a 200 mcg and 88 mcg tablet. I resent to the pharmacy for him to retrieve. He has some repeat labs in a few months to recheck his TSH prior to seeing Dr. Seals. Again I would recommend that he stay consistent with taking his medications daily as he reported greater than 10 missed doses per month on average. The following approved medication requests have been transmitted electronically. Requested Prescriptions Signed Prescriptions Disp Refills levothyroxine (SYNTHROID) 200 mcg tablet 90 tablet 1 Sig: Take 1 tablet by mouth once daily. Take on empty stomach. For Thyroid. Authorizing Provider: MICKY CABEZAS levothyroxine (SYNTHROID) 88 mcg tablet 90 tablet 1 Sig: Take 1 tablet by mouth once daily. Take 1 tablet by mouth once daily. Take on empty stomach. For Thyroid. To be taken with Levothyroxine 200 mcg tablet to make 288 mcg Authorizing Provider: MICKY CABEZAS APRN.CNP [facility] 02-05-2025 History of Present illness Narrative Primary Care Pharmacy Visit CC (Reason for Consult): Diabetes (E11.40) Type 2 diabetes, controlled, with neuropathy (HCC) (primary encounter diagnosis) Goal: A1c < 7% Last Collaborating Provider Visit: 01/16/25 Lucas Mccabe is a 59 year old male presenting for initial visit: This initial consult was conducted telephone call with the patient where the consult agreement was explained. The patient may decline or cancel the agreement at any time. After consideration, the patient consented to the pharmacy consult agreement and agreed to allow medications be collaboratively managed by a pharmacist. Interim Events: 12/06: ED for confusion 01/16: gabapentin increased; labs later returned --> pt started on vitamin D supplement, levothyroxine was increased, glimepiride increased and referred to PharmD for DM mngt HPI: If I remember to take the medicine my sugar should be doing pretty good. Usually missing doses up to 10x/month. Says he sometimes forgets if he takes his pills. Also not checking sugars regularly. Battery is on glucometer. Personal goals: wants to feel better. States he has stage 3 or 4 lung disease, has lots of breathing issues. Energy level is poor. Denies issues with frequent thirst. Has constant dry mouth. Pees a lot, on Lasix. Wakes up 2-3x/night to urinate. No recent vision issues, just had eye exam a few months ago. Had MARQUEZ exam, said it all looked good. Not checking feet frequently because knees don't bend well, can only see the tops of feet. Has trouble putting socks on. Does have neuropathy clear up his legs. Confirms he has had a heart cath a long time ago. Can't recall if he has ever had a heart attack. Current DM Medications: Metformin 500mg tabs - 1000mg QAM with breakfast Glimepiride 4mg BID Past DM medications: None SMBGS (Fingersticks) Reports glucometer is broken, hasn't checked BG in almost 1 year or more Preventative Medications: On LYNETTE/ARB: Yes On Statin: Yes ROS: Patient denies CP, SOB, ARORA, blurred vision, dizziness or lightheadedness Patient denies symptoms of hypoglycemia (sweating, anxiety, palpitations, hunger, and tremor) Patient reports symptoms of hyperglycemia (polyuria, polydipsia, polyphagia) Patient denies potential medication adverse effects DIET/EXERCISE/SOCIAL Hx: Not enough time to address MEDICATIONS: Pill bottles are present. Adherence: reports missed doses of meds 10x/month, both AM and PM meds. Pharmacy: [facility] [address] [place] [phone] - [phone] Rx coverage: Payor: [facility] / Plan: [facility] / Product Type: Medicare / Medications affordable? Yes Diabetes Supplies: No Organization system: keeps in original bottles ACTIVE PROBLEM LIST Thoracic Or Lumbosacral Neuritis Or Radiculitis, Unspecified Displacement of Intervertebral Disc, Site Unspecified, Without Myelopathy Pmh - Past Medical History of Spondylosis of Unspecified Site Without Mention of Myelopathy Myalgia and Myositis, Unspecified Neuralgia, Neuritis, and Radiculitis, Unspecified Embolism and Thrombosis (Hcc) Generalized Osteoarthrosis, Unspecified Site Esophageal Reflux Essential Hypertension Spinal Stenosis, Lumbar Region, Without Neurogenic Claudication Primary Hypercoagulable State (Hcc) Tobacco Use Disorder Other Acquired Deformity of Toe Pain in Limb Dermatophytosis of Nail Corns and Callosities Venous Insufficiency Pain in Joint, Shoulder Region Chronic Pain Lumbar Disc Displacement Without Myelopathy Ddd (Degenerative Disc Disease), Lumbar Asthma (Hcc) Type 2 Diabetes, Controlled, With Neuropathy ([facility]) Essential Hypertension With Goal Blood Pressure Less Than 140/90 Acquired Hypothyroidism Obstructive Sleep Apnea Factor V Leiden ([facility]) Chronic Pulmonary Embolism Without Acute Cor Pulmonale ([facility]) Requires Continuous At Home Supplemental Oxygen Pulmonary Emphysema ([facility]) Obesity, Class II, Bmi 35-39.9 Family History of Malignant Hypertension Dizziness Bppv (Benign Paroxysmal Positional Vertigo), Unspecified Laterality PAST MEDICAL HISTORY Diagnosis Date Chronic pain Displacement of intervertebral disc, site unspecified, without myelopathy 05/06/2005 DVT (deep venous thrombosis) ([facility]) Esophageal reflux Factor V Leiden mutation (HCC) Generalized osteoarthrosis, unspecified site Hypothyroidism Myalgia and myositis, unspecified Neuralgia, neuritis, and radiculitis, unspecified Obesity, unspecified LEONEL (obstructive sleep apnea) Pulmonary embolism (HCC) 03/2020 Spondylosis of unspecified site without mention of myelopathy Thoracic or lumbosacral neuritis or radiculitis, unspecified 04/01/2005 Type 2 diabetes mellitus (HCC) Unspecified essential hypertension Past medical history reviewed. ALLERGIES Allergen Reactions Latex Intolerance Headache, dizzy, trouble breathing Zomig [Zolmitriptan] Mental Status Change Medication List Medication Directions Comments Action/Plan albuterol HFA (VENTOLIN HFA) 90 mcg/actuation inhaler INHALE 2 PUFFS ORALLY DIRECTED EVERY 4 HOURS NEEDED Uses it multiple times per day, sometimes doesn't use it at all apixaban (ELIQUIS) 5 mg tab(s) Take 1 tablet by mouth two times a day. Taking BID atorvastatin (LIPITOR) 10 mg tablet Take 1 tablet by mouth once daily. Doesn't have pill bottle, says he isn't taking it but not sure why blood sugar diagnostic (BLOOD GLUCOSE TEST) test strip Test blood sugar(s) 1 times daily. Dx: Type 2 DM - Uncontrolled E11.65 Insulin: No Patient not taking: Reported on 11/03/2024 supplies Blood-Glucose Meter monitoring kit Glucose Meter of Choice - Kit - Dx: Type 2 DM - Uncontrolled E11.65 Patient not taking: Reported on 11/03/2024 supplies khaqmxodzk-pfmiuwre-qwuhoxprwn (BREZTRI AEROSPHERE) 160-9-4.8 mcg/actuation HFA aerosol inhaler Inhale 2 Puffs as instructed two times a day. Reports using it 2x/day when I remember DULoxetine (CYMBALTA) 60 mg capsule Take 1 capsule by mouth two times a day. Taking BID ergocalciferol 50,000 unit capsule (VITAMIN D2, DRISDOL) Take 1 capsule by mouth two times a week for 30 days, THEN 1 capsule one time a week. Taking on Mondays and Fridays currently furosemide (LASIX) 40 mg tablet Take 1 tablet by mouth once daily. Taking QAM gabapentin (NEURONTIN) 300 mg capsule Take 1 capsule by mouth two times a day for 180 days. Tries taking it BID when he remembers glimepiride (AMARYL) 4 mg tablet Take 1 tablet by mouth two times a day with meals. Taking BID guaiFENesin (MUCINEX) 600 mg 12 hr tablet Take 2 tablets by mouth two times a day as needed for cold/allergy symptoms. Lancets Test blood sugar(s) 1 times daily. Dx: Type 2 DM - Uncontrolled E11.65 Insulin: No Patient not taking: Reported on 11/03/2024 supplies levothyroxine (SYNTHROID) 200 mcg tablet Take 1 tablet by mouth once daily. Take on empty stomach. For Thyroid. Has a 300mcg tablet and is taking 1 daily. He was taking 200mcg + 75mcg, but thinks pharmacy filled and he switched to 300mcg about 1 month ago Updated med list and will inform PCP levothyroxine (SYNTHROID) 88 mcg tablet Take 1 tablet by mouth once daily. Take 1 tablet by mouth once daily. Take on empty stomach. For Thyroid. To be taken with Levothyroxine 200 mcg tablet to make 288 mcg Has a 300mcg tablet and is taking 1 daily lisinopril (ZESTRIL) 20 mg tablet Take 1 tablet by mouth once daily. Usually takes in the evening Meclizine HCl 50 mg tablet Take 50 mg by mouth two times a day as needed (dizziness). Uses PRN metFORMIN (GLUCOPHAGE) 500 mg tablet Take 2 tablets by mouth daily with breakfast. Taking as directed omeprazole (PRILOSEC) 40 mg capsule Take 1 capsule by mouth once daily. Taking; says get reflux if goes more than 2 days without Rx meds not listed in EPIC: none OTCs: none Herbals: none Exam: There were no vitals taken for this visit. Last 3 Encounter BP Readings: Date: BP: 01/16/2025 140/92 11/03/2024 152/83 10/18/2024 140/88 Wt: 146.1 kg (322 lb) BMI: 43.67 kg/(m^2) LABS: Reviewed Lab Results Component Value Date HBA1C 9.0 01/16/2025 HBA1C 8.6 03/07/2024 HBA1C 5.9 09/07/2023 HBA1C 11.9 01/31/2021 HBA1C 8.9 09/20/2020 HBA1C 6.8 07/17/2019 CMP: Glucose 162 01/16/2025 BUN 13 01/16/2025 Creatinine 0.80 01/16/2025 Sodium 136 01/16/2025 Potassium 4.3 01/16/2025 Chloride 96 01/16/2025 CO2 26 01/16/2025 Protein, Total 7.4 01/16/2025 Albumin 4.1 01/16/2025 Calcium 9.8 01/16/2025 Alkaline Phosphatase 107 01/16/2025 Bilirubin, Total 0.6 01/16/2025 AST 21 01/16/2025 ALT 15 01/16/2025 eGFR 101 Lab Results Component Value Date CHOL 202 01/16/2025 CHOL 140 01/31/2021 LDL 132 01/16/2025 LDL 58 03/07/2024 LDL 77 01/31/2021 HDL 35 01/16/2025 HDL 30 01/31/2021 TG 195 01/16/2025 TG 163 01/31/2021 The 10-year ASCVD risk score ([place] KOWALSKI, et al., 2019) is: 40.2% Values used to calculate the score: Age: 59 years Sex: Male Is Non- : No Diabetic: Yes Tobacco smoker: Yes Systolic Blood Pressure: 140 mmHg Is BP treated: Yes HDL Cholesterol: 35 mg/dL Total Cholesterol: 202 mg/dL Albumin/Creat Ratio (mg/g) Date Value 09/20/2018 33 (H) PHARMACOTHERAPY ASSESSMENT/PLAN: 1. Type 2 diabetes, controlled, with neuropathy (HCC) - ICD9: 250.60, 357.2, ICD10: E11.40 (primary diagnosis) A1c goal < 7%; uncontrolled (last A1c 9%); no SMBGs to review, doesn't have functional monitor; CGM ordered; (+) sx hyperglycemia (though low energy could be confounded with severe lung disease and urination/thirst compounded by Lasix), (-) sx hypoglycemia; biggest issue is medication adherence - pt missing meds 10+x/month; today will increase metformin and focus on improved adherence; per external record review, appears pt has hx of CAD --> if so then patient is definitely indicated for GLP1 or SGLT2i for CAD protection (will discuss at f/up visit) DISCONTINUE metformin 1000mg QAM INITIATE metformin ER 1500mg daily and then INCREASE to 2000mg daily as tolerated (may split to BID dosing) CONTINUE glimepiride 4mg BID INCREASE atorvastatin to 40mg daily. CMP already ordered, lipid panel ordered with next labs CGM ordered (phone is compatible with FL3). Advised to have SMBGs available to review for f/up visit Stressed the importance of medication adherence Pt indicated for high-intensity statin given hx CAD. INCREASE atorvastatin to 40mg daily CMP already ordered. Lipids ordered with next labs - ATORVASTATIN 40 MG TABLET - LIPID PANEL, FASTING - FREESTYLE MANDEEP 3 PLUS SENSOR DEVICE 2. Medication management - ICD9: V58.69, ICD10: Z79.899 Reviewed all medications, indications, dosing, frequency, administration with patient. Medication list updated as described above. Nonadherence: patient missing meds 10+x/month due to forgetfulness and also not remembering if he took meds and then skipping. Suggested [facility] adherence pharmacy but he declined. Recommended buying and filling pill boxes and setting alarms on phone. Levothyroxine: pt currently taking 300mcg daily (thinks he has been taking this dose for the past ~1 month). PCP recently increased dose from 275mcg to 288mcg due to high TSH level. 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 Will inform PCP to see what preference is for levothyroxine dosing and lab monitoring Atorvastatin: discovered pt has NOT been taking atorvastatin (confirmed with external fill hx). New script for Atorvastatin 40mg sent to pharmacy (see above under DM for details) Missing indication: Per external records, hx CAD Notes cardiac catheterization late without PCI needed and unclear possible history of SC; pt reported having heart cath a long time ago. Will inform PCP and ask that they add CAD to problem list Health Maintenance - Diabetes Topic Date Due Dilated Retinal Exam 08/09/2019 Urine Albumin:Creatinine Ratio 09/20/2019 Diabetic Foot Exam 01/05/2020 Follow-up Patient is scheduled to see PCP team on 04/24. Patient to have f/up with PharmD team on 03/12. Patient verbalized understanding of instructions. Marky Scott PharmD, [facility] Primary Care Clinical Pharmacist Time spent: 51 mins documented in this encounter [facility] 02-05-2025 Note HNO ID: [id number] Author: MARKY SCOTT RPh Service: ? Author Type: Pharmacist Type: Progress Notes Filed: 02/05/2025 15:47 Note Text: Primary Care Pharmacy Visit CC (Reason for Consult): Diabetes (E11.40) Type 2 diabetes, controlled, with neuropathy (HCC) (primary encounter diagnosis) Goal: A1c < 7% Last Collaborating Provider Visit: 01/16/25 Lucas Mccabe is a 59 year old male presenting for initial visit: This initial consult was conducted telephone call with the patient where the consult agreement was explained. The patient may decline or cancel the agreement at any time. After consideration, the patient consented to the pharmacy consult agreement and agreed to allow medications be collaboratively managed by a pharmacist. Interim Events: 12/06: ED for confusion 01/16: gabapentin increased; labs later returned --> pt started on vitamin D supplement, levothyroxine was increased, glimepiride increased and referred to PharmD for DM mngt HPI: If I remember to take the medicine my sugar should be doing pretty good. Usually missing doses up to 10x/month. Says he sometimes forgets if he takes his pills. Also not checking sugars regularly. Battery is on glucometer. Personal goals: wants to feel better. States he has stage 3 or 4 lung disease, has lots of breathing issues. Energy level is poor. Denies issues with frequent thirst. Has constant dry mouth. Pees a lot, on Lasix. Wakes up 2-3x/night to urinate. No recent vision issues, just had eye exam a few months ago. Had MARQUEZ exam, said it all looked good. Not checking feet frequently because knees don't bend well, can only see the tops of feet. Has trouble putting socks on. Does have neuropathy clear up his legs. Confirms he has had a heart cath a long time ago. Can't recall if he has ever had a heart attack. Current DM Medications: Metformin 500mg tabs - 1000mg QAM with breakfast Glimepiride 4mg BID Past DM medications: None SMBGS (Fingersticks) Reports glucometer is broken, hasn't checked BG in almost 1 year or more Preventative Medications: On LYNETTE/ARB: Yes On Statin: Yes ROS: Patient denies CP, SOB, ARORA, blurred vision, dizziness or lightheadedness Patient denies symptoms of hypoglycemia (sweating, anxiety, palpitations, hunger, and tremor) Patient reports symptoms of hyperglycemia (polyuria, polydipsia, polyphagia) Patient denies potential medication adverse effects DIET/EXERCISE/SOCIAL Hx: Not enough time to address MEDICATIONS: Pill bottles are present. Adherence: reports missed doses of meds 10x/month, both AM and PM meds. Pharmacy: [facility] [address] [place] [id number] [phone] - [phone] Rx coverage: [facility] / Plan: [facility] MEDIC[facility] / Product Type: Medicare / Medications affordable? Yes Diabetes Supplies: No Organization system: keeps in original bottles ACTIVE PROBLEM LIST Thoracic Or Lumbosacral Neuritis Or Radiculitis, Unspecified Displacement of Intervertebral Disc, Site Unspecified, Without Myelopathy Pmh - Past Medical History of Spondylosis of Unspecified Site Without Mention of Myelopathy Myalgia and Myositis, Unspecified Neuralgia, Neuritis, and Radiculitis, Unspecified Embolism and Thrombosis (Hcc) Generalized Osteoarthrosis, Unspecified Site Esophageal Reflux Essential Hypertension Spinal Stenosis, Lumbar Region, Without Neurogenic Claudication Primary Hypercoagulable State (Hcc) Tobacco Use Disorder Other Acquired Deformity of Toe Pain in Limb Dermatophytosis of Nail Corns and Callosities Venous Insufficiency Pain in Joint, Shoulder Region Chronic Pain Lumbar Disc Displacement Without Myelopathy Ddd (Degenerative Disc Disease), Lumbar Asthma (Hcc) Type 2 Diabetes, Controlled, With Neuropathy (Hcc) Essential Hypertension With Goal Blood Pressure Less Than 140/90 Acquired Hypothyroidism Obstructive Sleep Apnea Factor V Leiden (Hcc) Chronic Pulmonary Embolism Without Acute Cor Pulmonale (Hcc) Requires Continuous At Home Supplemental Oxygen Pulmonary Emphysema (Hcc) Obesity, Class II, Bmi 35-39.9 Family History of Malignant Hypertension Dizziness Bppv (Benign Paroxysmal Positional Vertigo), Unspecified Laterality PAST MEDICAL HISTORY Diagnosis Date Chronic pain Displacement of intervertebral disc, site unspecified, without myelopathy 05/06/2005 DVT (deep venous thrombosis) (HCC) Esophageal reflux Factor V Leiden mutation (HCC) Generalized osteoarthrosis, unspecified site Hypothyroidism Myalgia and myositis, unspecified Neuralgia, neuritis, and radiculitis, unspecified Obesity, unspecified LEONEL (obstructive sleep apnea) Pulmonary embolism (HCC) 03/2020 Spondylosis of unspecified site without mention of myelopathy Thoracic or lumbosacral neuritis or radiculitis, unspecified 04/01/2005 Type 2 diabetes mellitus (HCC) Unspecified essential hypertension Past (more content not included)... [facility] 01-23-2025 Telephone encounter Note Spoke with pt, gave him the results and instructions below. Transferred to PSS to set up pharmacist appt. Vanessa Capone MA [facility] 01-23-2025 Miscellaneous Notes Spoke with pt, gave him the results and instructions below. Transferred to PSS to set up pharmacist appt. Vanessa Capone MA Attempted to contact patient x 2. No answer and wireless message states person is not available and call back again. Unable to leave a message. Please try contacting patient again. Joslyn Saenz RN Please let the patient know that his vitamin D level is low. I called in a vitamin D supplement for him to start taking. We will recheck in 3 months. His TSH is elevated. I would like for him to increase his Levothyroxine dose. Continue with taking the 200 mcg tablet of levothyroxine. Stop taking the 75 mcg tablet. I called in a 88 mcg tablet for him to start taking. We will recheck TSH in 3 months. Please ensure he is taking this medication on an empty stomach with no other pills for atleast 30 minutes. His Hgb A1c is elevated at 9.0%. I would like for him to start taking his glimepiride 4 mg tablet twice daily. I sent in a new prescription. Take with food to avoid low blood glucose levels. Continue with plan to review the diabetes meal planning booklet I gave him yesterday. I also would like for him to see a clinical pharmacist to start working on a better treatment plan. Also, please encourage the patient to go get a new battery for his glucose monitor and start checking blood glucose atleast once daily and record. Bring to his appointment with pharmacy. I placed labs for him to get prior to next visit with Dr. Seals. The following approved medication requests have been transmitted electronically. Requested Prescriptions Signed Prescriptions Disp Refills ergocalciferol 50,000 unit capsule (VITAMIN D2, DRISDOL) 20 capsule 0 Sig: Take 1 capsule by mouth two times a week for 30 days, THEN 1 capsule one time a week. glimepiride (AMARYL) 4 mg tablet 180 tablet 3 Sig: Take 1 tablet by mouth two times a day with meals. levothyroxine (SYNTHROID) 88 mcg tablet 90 tablet 1 Sig: Take 1 tablet by mouth once daily. Take 1 tablet by mouth once daily. Take on empty stomach. For Thyroid. To be taken with Levothyroxine 200 mcg tablet to make 288 mcg Micky Cabezas APRN.DARNELL documented in this encounter [facility] 01-19-2025 Telephone encounter Note Attempted to contact patient x 2. No answer and wireless message states person is not available and call back again. Unable to leave a message. Please try contacting patient again. Joslyn Saenz RN [facility] 01-18-2025 Telephone encounter Note Telephoned the patient to schedule a new Primary Care pharmacy appt. Unable to leave a message.Pt. phone not accepting calls. [facility] 01-18-2025 Miscellaneous Notes Telephoned the patient to schedule a new Primary Care pharmacy appt. Unable to leave a message.Pt. phone not accepting calls. documented in this encounter [facility] 01-17-2025 Telephone encounter Note Please let the patient know that his vitamin D level is low. I called in a vitamin D supplement for him to start taking. We will recheck in 3 months. His TSH is elevated. I would like for him to increase his Levothyroxine dose. Continue with taking the 200 mcg tablet of levothyroxine. Stop taking the 75 mcg tablet. I called in a 88 mcg tablet for him to start taking. We will recheck TSH in 3 months. Please ensure he is taking this medication on an empty stomach with no other pills for atleast 30 minutes. His Hgb A1c is elevated at 9.0%. I would like for him to start taking his glimepiride 4 mg tablet twice daily. I sent in a new prescription. Take with food to avoid low blood glucose levels. Continue with plan to review the diabetes meal planning booklet I gave him yesterday. I also would like for him to see a clinical pharmacist to start working on a better treatment plan. Also, please encourage the patient to go get a new battery for his glucose monitor and start checking blood glucose atleast once daily and record. Bring to his appointment with pharmacy. I placed labs for him to get prior to next visit with Dr. Seals. The following approved medication requests have been transmitted electronically. Requested Prescriptions Signed Prescriptions Disp Refills ergocalciferol 50,000 unit capsule (VITAMIN D2, DRISDOL) 20 capsule 0 Sig: Take 1 capsule by mouth two times a week for 30 days, THEN 1 capsule one time a week. glimepiride (AMARYL) 4 mg tablet 180 tablet 3 Sig: Take 1 tablet by mouth two times a day with meals. levothyroxine (SYNTHROID) 88 mcg tablet 90 tablet 1 Sig: Take 1 tablet by mouth once daily. Take 1 tablet by mouth once daily. Take on empty stomach. For Thyroid. To be taken with Levothyroxine 200 mcg tablet to make 288 mcg Micky Cabezas APRN.DIRECTOR HAIR [facility] 01-16-2025 Note HNO ID: [id number] Author: MICKY CABEZAS APRN.DANRELL Service: ? Author Type: Nurse Practitioner Type: Progress Notes Filed: 01/16/2025 12:06 Note Text: Chief Complaint Patient presents with: Follow Up: 3 mo HPI Lucas Mccabe is a 59 year old male who presents here today for above reason. Lucas is a 59-year-old male with a history of COPD, emphysema, type 2 diabetes mellitus, hypercholesterolemia, and neuropathy, presenting for follow-up. Lucas reports persistent fatigue, stating he feels tired all the time. He is currently on levothyroxine, but it is unclear if the dosage is appropriate. He also mentions a history of a blood clot and is on Eliquis. He is taking metformin, 2 tablets daily, and glimepiride, 1 tablet daily, for diabetes management. He checks his blood glucose levels at home daily, but his glucometer battery is , and he is unsure of his recent readings. He denies any episodes of hypoglycemia characterized by shakiness but does report dizziness. Lucas is on Lipitor for hypercholesterolemia and gabapentin 300 mg nightly for neuropathy. He reports that the current dose of gabapentin is somewhat effective but notes that the neuropathy is extending past his hips and occasionally causes a burning sensation. He has not tried taking gabapentin twice a day but is open to adjusting the dosage. He is following up with a power ballast machine operator for COPD and emphysema management. Past medical history, appointments, medications, allergies reviewed. EXAM: BP 140/92 (BP Position: Sitting) Pulse 80 Resp 20 Wt (!) 146.1 kg (322 lb) SpO2 94% BMI 43.67 kg/m? General Appearance: Well appearing, alert, in no acute distress, well-hydrated, well nourished.. Lungs: Lungs clear to auscultation. No wheezing, rhonchi, rales.. Heart: RRR without murmur, gallop, or rubs. No ectopy. Assessment and Plan 1. Chronic obstructive pulmonary disease, unspecified COPD type (HCC) (J44.9) Centrilobular emphysema (HCC) (J43.2) Follow-up with power ballast machine operator for COPD and emphysema management. - Continue current management and follow-up with power ballast machine operator. 2. Type 2 diabetes, controlled, with neuropathy (HCC) (E11.40) Currently on Metformin 2 tablets daily and Glimepiride 1 tablet daily. Last HbA1c in February was 8.6%. Neuropathy symptoms include burning sensation, managed with Gabapentin 300 mg nightly. - Ordered HbA1c, iron studies, vitamin D, and B12 levels. - Increase Gabapentin to 300 mg BID; if intolerable, consider reducing morning dose to 100 mg. - Educated on dietary modifications to reduce carbohydrate intake; provided educational booklet. - Advised to replace battery in glucometer to resume daily blood glucose monitoring. - Follow-up in 3 months to reassess glycemic control and neuropathy symptoms. 3. Gastroesophageal reflux disease, unspecified whether esophagitis present (K21.9) 4. Acquired hypothyroidism (E03.9) Potential contributor to fatigue. - Ordered TSH level to assess current thyroid function. 5. 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 - Continue Eliquis as prescribed. 6. Essential hypertension (I10) - Stable on Lisinopril 20 mg 7. Hyperlipidemia, mixed (E78.2) On Lipitor for lipid management. - Continue Lipitor as prescribed. 8. BPPV (benign paroxysmal positional vertigo), unspecified laterality (H81.10) History of BPPV, recent episode of dizziness possibly related to low blood sugar. - Monitor for recurrent episodes; ensure adequate hydration and nutrition. 9. Chronic pain syndrome (G89.4) - Increase Gabapentin 10. DDD (degenerative disc disease), lumbar (M51.369) - Increase Gabapentin Micky Cabezas APRN.DIRECTOR HAIR RTO in 3 months, sooner if needed. This note was partly generated using [employer] voice recognition dictation and may contain some misspelled or inaccurate words missed on review. Recording using [employer] software for draft documentation of the visit was discussed with the patient/authorized rental sales representative; all questions welcomed and answered. Patient/authorized rental sales representative agreed to proceed [facility] 01-16-2025 History of Present illness Narrative Chief Complaint Patient presents with: Follow Up: 3 mo HPI Luacs Mccabe is a 59 year old male who presents here today for above reason. Lucas is a 59-year-old male with a history of COPD, emphysema, type 2 diabetes mellitus, hypercholesterolemia, and neuropathy, presenting for follow-up. Lucas reports persistent fatigue, stating he feels tired all the time. He is currently on levothyroxine, but it is unclear if the dosage is appropriate. He also mentions a history of a blood clot and is on Eliquis. He is taking metformin, 2 tablets daily, and glimepiride, 1 tablet daily, for diabetes management. He checks his blood glucose levels at home daily, but his glucometer battery is , and he is unsure of his recent readings. He denies any episodes of hypoglycemia characterized by shakiness but does report dizziness. Lucas is on Lipitor for hypercholesterolemia and gabapentin 300 mg nightly for neuropathy. He reports that the current dose of gabapentin is somewhat effective but notes that the neuropathy is extending past his hips and occasionally causes a burning sensation. He has not tried taking gabapentin twice a day but is open to adjusting the dosage. He is following up with a power ballast machine operator for COPD and emphysema management. Past medical history, appointments, medications, allergies reviewed. EXAM: BP 140/92 (BP Position: Sitting) Pulse 80 Resp 20 Wt (!) 146.1 kg (322 lb) SpO2 94% BMI 43.67 kg/m General Appearance: Well appearing, alert, in no acute distress, well-hydrated, well nourished.. Lungs: Lungs clear to auscultation. No wheezing, rhonchi, rales.. Heart: RRR without murmur, gallop, or rubs. No ectopy. Assessment and Plan 1. Chronic obstructive pulmonary disease, unspecified COPD type (HCC) (J44.9) Centrilobular emphysema (HCC) (J43.2) Follow-up with power ballast machine operator for COPD and emphysema management. - Continue current management and follow-up with power ballast machine operator. 2. Type 2 diabetes, controlled, with neuropathy (HCC) (E11.40) Currently on Metformin 2 tablets daily and Glimepiride 1 tablet daily. Last HbA1c in February was 8.6%. Neuropathy symptoms include burning sensation, managed with Gabapentin 300 mg nightly. - Ordered HbA1c, iron studies, vitamin D, and B12 levels. - Increase Gabapentin to 300 mg BID; if intolerable, consider reducing morning dose to 100 mg. - Educated on dietary modifications to reduce carbohydrate intake; provided educational booklet. - Advised to replace battery in glucometer to resume daily blood glucose monitoring. - Follow-up in 3 months to reassess glycemic control and neuropathy symptoms. 3. Gastroesophageal reflux disease, unspecified whether esophagitis present (K21.9) 4. Acquired hypothyroidism (E03.9) Potential contributor to fatigue. - Ordered TSH level to assess current thyroid function. 5. 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 - Continue Eliquis as prescribed. 6. Essential hypertension (I10) - Stable on Lisinopril 20 mg 7. Hyperlipidemia, mixed (E78.2) On Lipitor for lipid management. - Continue Lipitor as prescribed. 8. BPPV (benign paroxysmal positional vertigo), unspecified laterality (H81.10) History of BPPV, recent episode of dizziness possibly related to low blood sugar. - Monitor for recurrent episodes; ensure adequate hydration and nutrition. 9. Chronic pain syndrome (G89.4) - Increase Gabapentin 10. DDD (degenerative disc disease), lumbar (M51.369) - Increase Gabapentin Micky Cabezas APRN.CNP RTO in 3 months, sooner if needed. This note was partly generated using [employer] voice recognition dictation and may contain some misspelled or inaccurate words missed on review. Recording using KARALIT software for draft documentation of the visit was discussed with the patient/authorized rental sales representative; all questions welcomed and answered. Patient/authorized rental sales representative agreed to proceed documented in this encounter [facility] 12-07-2024 Discharge summary [facility] 12-06-2024 Radiology Diagnostic study note [facility] Imaging Services [address] [place] [address] [id number] Chest PA and Lateral MR#: [id number] Acct: [id number] Name: LUCAS MCCABE Jr. Rep #: [id number] : 1965 M 59 From: Deb Farias DO PCP: Dr. Kaushik Seals MD Status: RE G ER Study:Chest PA and Lateral Date of Exam: 12/06/24 Exam# [id number] Ordering Dr: Gilberto Lorenzo DO PROCEDURE: CHEST PA AND LATERAL 12/06/2024 REASON FOR EXAM: CONFUSION TECHNIQUE: Frontal and lateral views of the chest. COMPARISON: None FINDINGS: Hardware: None Heart: The heart size is normal. Mediastinum: The mediastinal contour is unremarkable. Lungs: Pulmonary vasculature is congested. Bones: The bones are unremarkable. RAD/Chest PA and Lateral IMPRESSION: Prominent bilateral interstitial markings, concerning for congestion. Reading Location: [facility] CC: Dr. Gilberto Lorenzo DO; Dr. Kaushik Seals MD ~ Talent Engineer: Signed [facility] 12-06-2024 Radiology Diagnostic study note [facility] Imaging Services [address] [place] [address] Brain/Head without Contrast MR#: [id number] Acct: [id number] Name: LUCAS MCCABE Jr. Rep #: [id number] : 1965 M 59 From: Hiren Brooks MD PCP: Dr. Kaushik Seals MD Status: MD E ER Study:Brain/Head without Contrast Date of Exa m: 12/06/24 Exam# [id number] Ordering Dr: Gilberto Lorenzo DO PROCEDURE: BRAIN/HEAD WITHOUT CONTRAST 12/06/2024 REASON FOR EXAM: CONFUSION TECHNIQUE: Head CT without intravenous contrast. Coronal and Sagittal reconstruction serieswere provided. One or more dose reduction techniques were used (e.g., Automated exposure control, adjustment of the mA and/or kV according to patient size, use of iterative reconstruction technique. FINDINGS: Brain: Normal CSF Spaces: Normal Sinuses/Mastoids: Mucosal thickening of the left maxillary sinus consistent withchronic sinusitis. Bones: Unremarkable. CT/Brain/Head without Contrast IMPRESSION: SINUS DISEASE. OTHERWISE UNREMARKABLE NONCONTRAST HEAD CT. Reading Location: [id number] CC: Dr. Gilberto Lorenzo DO; Dr. Kaushik Seals MD ~ Talent Engineer: Signed [facility] 12-06-2024 Discharge summary Note Date/Time December 07, 2024 12:11am [facility] Medical Records Department [address] [place] [address] Emergency Department Summary 12/06/24 MR#: [id number] Acct: [id number] Name: LUCAS MCCABE JrRowan Rep #:[id number] : 1965 59 From: Gilberto George PCP: Dr. Kaushik Seals MD Status:RE G ER Location: ED HPI History of Present Illness Chief Complaint: Confusion Narrative Narrative: Patient presents with feeling weird that began today. Patient was at [employer] and staff there noticed that he was acting confused. Staff there states the patient hit a sign while he was walking. [facility] staff called EMS. EMS checked his blood sugar and it was in the 200s. Patient had no focal deficits for EMS. Currently, patient is alert and oriented to person, place, and year. Patient is unsure of the month or day. Patient states his symptoms began today and have been gradually getting worse. Patient denies any fevers orchills. Patient does admit to some shortness of breath and wheezing. Patient admits to some dysuria. Patient also admits to headache, neck pain, and back pain. [facility] Medical History (Updated 12/06/24 @ 23:[address] Gilberto Lorenzo, DO) Degenerative disc disease GERD (gastroesophageal reflux disease) PVD (peripheral vascular disease) Hyperlipidemia CAD (coronary artery disease) Diabetes Hypothyroidism Hypertension COPD (chronic obstructive pulmonary disease) Home Medications ?Medication ?Instructions ?Recorded ?Last Taken ?Type duloxetine 60 mg capsule,delayed 60 mg PO BID mental h ealth 11/29/13 03/27/20 09:00 History release gabapentin 300 mg capsule 300 mg PO QHS nerve pain 05/0603/27/20 09:00 History lisinopril 20 mg tablet 20 mg PO DAILY blood pressur e 11/29/13 03/27/20 09:00 History metformin 500 mg tablet 500 mg PO DAILY diabetes 05/0603/27/20 09:00 History omeprazole 20 mg capsule,delayed 40 mg PO DAILY reflux 11/29/13 03/27/20 09:00 History release albuterol sulfate 2.5 mg/3 mL 2.5 mg (3 mL) inhalation Q2H PRN 11/30/13 Unknown Rx (0.083 %) solution for nebulization PRN SHORTNESS OF B REATH ##1 levothyroxine 75 mcg tablet 175 mcg PO DAILY@0600 thyr oid 07/17/15 03/27/20 09:00 History budesonide-formoterol HFA 80 2 puff inhalation BID richardson athing 04/02/18 03/27/20 09:00 History mcg-4.5 mcg/actuation aerosol inhaler (Symbicort) atorvastatin 10 mg tablet 10 mg PO QHS cholesterol 01/0903/27/20 09:00 History meclizine 25 mg tablet 25 mg PO DAILY PRN Dizziness 03/27/20 02/25/20 History apixaban 5 mg tablet 5 mg PO BID 08/21/20 Unknown History albuterol sulfate 90 mcg/actuation 2 puff inhalation Q 4H PRN PRN 08/11/21 Un known Rx aerosol inhaler (Ventolin HFA) Wheezing #6.7 grams lidocaine 5 % topical patch 1 patch topical DAILY PRN pain #15 06/24/23 Unknown Rx (Lidoderm) ea cephalexin 500 mg capsule 500 mg PO Q6 #12 CAPSULES Unknown Rx Allergy/AdvReac Type Severity Reaction Status Date / Time latex Allergy Anaphylaxis Verified 12/06/24 20:29 zolmitriptan (From Zomig) Allergy Other Verified 12/06/24 20:29 Surgical History (Updated 12/06/24 @ 20:[address] Gilberto Lorenzo DO) Hx of knee surgery Social History Smoking Status: Current every day smoker tobacco type: cigarettes ROS ROS ED Constitutional Constitutional ED: Denies chills or fever(s) Eyes Eyes: Denies blurry vision or change in vision ENT ENT ED: Denies rhinorrhea or sore throat Cardiovascular Cardiovascular: Denies chest pain or palpitations Respiratory/Chest Respiratory/Chest: Reports dyspnea; Denies cough Gastrointestinal Gastrointestinal: Denies nausea or vomiting Genitourinary Genitourinary ED: Reports dysuria; Denies hematuria Musculoskeletal Musculoskeletal: Reports back pain and neck pain Integumentary Denies abscess or rash Neurologic Neurologic: Reports headache(s); Denies weakness Allergic/Immunologic Allergic/Immunologic ED: Denies mouth swelling or urticaria EXAM Physical Exam Const Vital Signs: 12/06/24 20:20 12/06/24 20:35 12/06/24 20:58 Temperature 98.4 F Temperature Source Oral Pulse Rate 96 94 95 Respiratory Rate 18 24 H 26 H Blood Pressure 162/92 H Blood Pressure Mean 115 Pulse Ox 93 93 Oxygen Delivery Method Room Air 12/06/24 21:00 12/06/24 21:15 12/06/24 21:30 Temperature Temperature Source Pulse Rate 100 89 87 Respiratory Rate 27 H 25 H 24 H Blood Pressure 155/78 H 157/67 H Blood Pressure Mean 100 88 Pulse Ox 92 95 Oxygen Delivery Method 12/06/24 21:36 12/06/24 21:45 12/06/24 22:00 Temperature Temperature Source Pulse Rate 89 88 90 Respiratory Rate 24 H 25 H 25 H Blood Pressure 130/69 H 145/75 H Blood Pressure Mean 88 94 Pulse Ox 95 Oxygen Delivery Method 12/06/24 22:15 Temperature Temperature Source Pulse Rate 88 Respiratory Rate 28 H Blood Pressure 143/73 H Blood Pressure Mean 95 Pulse Ox Oxygen Delivery Method Positive well nourished and well developed General Appearance ED: well developed and NAD HEENT Reports moist mucous membranes Neck supple Resp normal respiratory effort Auscultation: wheezes expiratory wheezes and throughout Cardio regular rate and regular rhythm GI non-tender and non-distended Palpation: soft Extremity normal to inspection General Extremety ED: Negative for edema or tenderness General Extremity: Negative for edema Neuro CN's II-XII intact bilaterally and no sensory deficits noted Sensorium / Orientation: alert Motor Exam: strength 5/5 throughout MDM MDM MDM Narrative Medical decision making narrative: Differential diagnosis includes intracranial bleeding, stroke, electrolyte abnormality, dehydration, hypoglycemia, hypothyroidism, hyperthyroidism, urinarytract infection, sepsis, alcohol intoxication, substance abuse, pneumonia, bronchitis, hypercapnia, cardiac dysrhythmia, and cardiac ischemia. EKG will beobtained to assess for cardiac dysrhythmia and cardiac ischemia. CT scan of thebrain will be obtained to assess for intracranial bleeding and stroke. Chest x-ray will be obtained to assess for pneumonia and bronchitis. CBC will be obtained to assess for leukocytosis and anemia. Comprehensive metabolic profilewill be obtained to assess for hepatic function, renal function, and electrolyteabnormality. PT with INR and PTT will be obtained to assess for coagulopathy. Urinalysis will be obtained to assess for urinary tract infection and hematuria. Serum lactate will be obtained to assess for sepsis. High-sensitivity troponinwill be obtained to assess for cardiac ischemia. 2-hour repeat high-sensitivitytroponin will be obtained to assess for ongoing cardiac ischemia. COVID-19, influenza, and RSV PCR will be obtained to assess for viral illness. Arterial blood gas will be obtained to assess for hypercapnia and hypoxia. Serum alcohollevel will be obtained to assess for alcohol intoxication. Urine tox cream willbe obtained to assess for substance abuse. TSH will be obtained to assess for hypothyroidism and hyperthyroidism. History & Record Review Additional record(s) reviewed:: Prior labs Lab Data Attestation: I reviewed the patient's lab results. Lab results narrative: CBC was reviewed. There is a mild leukocytosis of 12.5. This is consistent with previous results. PT with INR and PTT were reviewed and were within normallimits. Comprehensive metabolic profile was reviewed. Glucose was elevated at 397. Anion gap was normal. CO2 was normal. Initial high-sensitivity troponin was reviewed and was normal at 17. Serum lactate was reviewed and was normal at2.0. TSH was reviewed and was elevated at 30.6. Urinalysis was reviewed. Leukocyte esterase was 100. There are 10-25 white blood cells and 2+ bacteria. Serum alcohol level was reviewed and was less than 10.1. Urine tox screen was reviewed and was positive for cannabinoids. 2-hour repeat high-sensitivity troponin was reviewed and was normal at 18. COVID-19 PCR was reviewed and was negative. Influenza PCR was reviewed and was negative for influenza A and influenza B. RSV PCR was reviewed and was negative. Free T4 was reviewed and was low at 0.30. proBNP was reviewed and was normal at 140. Labs: Laboratory Results - last 24 hr 12/06/24 12/06/24 12/06/24 20:29 21:00 21:08 WBC 12.5 H RBC 5.50 Hgb 16.4 Hct 49.2 MCV 89.5 MCH 29.8 MCHC 33.3 RDW Std Deviation 46.4 H RDW Coeff of Vin 14.0 Plt Count 291 MPV 10.3 Immature Gran % (Auto) 0.400 Neut % (Auto) 76.3 H Lymph % (Auto) 14.0 L [place] % (Auto) 6.9 Eos % (Auto) 1.5 Baso % (Auto) 0.9 Absolute Neuts (auto) 9.6 H Absolute Lymphs (auto) 1.75 Nucleated RBC % 0 PT 13.4 INR 1.0 APTT 29.2 Sodium 136 Potassium 4.2 Chloride 98 Carbon Dioxide 26.7 Anion Gap 12 BUN 18 Creatinine 1.00 Estim Creat Clear Calc 118.78 Est GFR (MDRD) Non-Af 86 BUN/Creatinine Ratio 18.1 Glucose 397 H Lactic Acid 2.0 Calcium 9.3 Total Bilirubin 0.30 AST 26 ALT 22 Alkaline Phosphatase 119 Troponin T High Sens 17 Troponin T Hi Sens 2 Hr NT pro BNP II Total Protein 7.3 Albumin 4.0 Globulin 3.2 Albumin/Globulin Ratio 1.3 TSH 30.600 H Free T4 Urine Color Yellow Urine Clarity Sl. Cloudy Urine pH 6.0 Ur Specific [place] 1.020 Urine Protein 100 H Urine Glucose (UA) 1000 H Urine Ketones 5 H Urine Occult Blood 25 H Urine Nitrite Negative Urine Bilirubin Negative Urine Urobilinogen 1 H Ur Leukocyte Esterase 100 H Urine RBC 0-5 SEEN Urine WBC 10-25 SEEN Ur Squamous Epith Cells 0-5 SEEN Urine Bacteria 2+ Urine Mucus 0 SEEN Urine Opiates Screen NEGATIVE U Buprenorphine Qual NEGATIVE Ur Oxycodone Screen NEGATIVE Urine Methadone Screen NEGATIVE Urine Fentanyl Screen NEGATIVE Ur Barbiturates Screen NEGATIVE Ur Phencyclidine Scrn NEGATIVE Ur Amphetamines Screen NEGATIVE U Benzodiazepines Scrn NEGATIVE Urine Cocaine Screen NEGATIVE U Cannabinoids Screen PRESUMPTIVE POSITIVE Ethyl Alcohol < 10.1 12/06/24 22:35 WBC RBC Hgb Hct MCV MCH MCHC RDW Std Deviation RDW Coeff of Vin Plt Count MPV Immature Gran % (Auto) Neut % (Auto) Lymph % (Auto) [place] % (Auto) Eos % (Auto) Baso % (Auto) Absolute Neuts (auto) Absolute Lymphs (auto) Nucleated RBC % PT INR APTT Sodium Potassium Chloride Carbon Dioxide Anion Gap BUN Creatinine Estim Creat Clear Calc Est GFR (MDRD) Non-Af BUN/Creatinine Ratio Glucose Lactic Acid Calcium Total Bilirubin AST ALT Alkaline Phosphatase Troponin T High Sens Troponin T Hi Sens 2 Hr 18 NT pro BNP II 140 Total Protein Albumin Globulin Albumin/Globulin Ratio TSH Free T4 0.30 L Urine Color Urine Clarity Urine pH Ur Specific [place] Urine Protein Urine Glucose (UA) Urine Ketones Urine Occult Blood Urine Nitrite Urine Bilirubin Urine Urobilinogen Ur Leukocyte Esterase Urine RBC Urine WBC Ur Squamous Epith Cells Urine Bacteria Urine Mucus Urine Opiates Screen U Buprenorphine Qual Ur Oxycodone Screen Urine Methadone Screen Urine Fentanyl Screen Ur Barbiturates Screen Ur Phencyclidine Scrn Ur Amphetamines Screen U Benzodiazepines Scrn Urine Cocaine Screen U Cannabinoids Screen Ethyl Alcohol ABG Data Attestation: I personally reviewed and interpreted this ABG as follows: Interpretation: Arterial blood gas was reviewed. pH was 7.38. pCO2 is slightly elevated at 50.6. pO2 was 61. Oxygen saturation was 90%. Bicarbonate was slightly elevated at 30. CO2 was 32. This was obtained on room air. ABG results: ABG 12/06/24 21:54 Specimen Type ART Sample Site L Radial pH 7.38 Bicarbonate Actual 30.0 H Total CO2 32 Base Excess 5 H O2 Saturation 90 L O2 % 21.0 ABG pCO2 50.6 H ABG pO2 61 L Nilsa Test Positive O2 Delivery Device Room Air Vent Mode Not entered Radiography Diagnostic Testing: Clinical Impression(s) from Imaging Studies Chest X-Ray 12/06/24 20:36 IMPRESSION: Prominent bilateral interstitial markings, concerning for congestion. [facility] 12/06/24 20:45 IMPRESSION: SINUS DISEASE. OTHERWISE UNREMARKABLE NONCONTRAST HEAD CT. Reading Location: [id number] CT scan of the brain was obtained. There is no acute intracranial abnormality. This was interpreted by the radiologist and was also independently reviewed by myself. PA and lateral chest x-ray was obtained. There are 2 views. On my independent interpretation, there are bilateral interstitial markings concerning for congestion. There is no acute infiltrate. Bony thorax is normal. There is no cardiomegaly noted. Radiologist also interpreted the x-rays and agrees. Additional Tests and Interventions Additional Tests or Interventions: Because of the chest x-ray findings, BNP was added on. Because of the elevated TSH, free T4 was added on. Because of the urinalysis results, urine culture wasadded on. Treatment and Re-Evaluation :: Smoking cessation was discussed. Patient was given IV fluids initially. Patient was given a DuoNeb aerosol. Patient was then given some Lasix after hischest x-ray results. Patient was more awake and alert. Patient is now orientedto person, place, year, and month. Patient is still somewhat confused on the date. I discussed the patient's results with him. He states that he may have missed some of his doses of his levothyroxine. Patient was given a dose of his levothyroxine here. Patient was advised that this could be what was causing hisconfusion. Patient was also given a dose of Keflex. Patient was given a prescription for Keflex. Case was discussed with the hospitalist. He felt patient could be managed as an outpatient. Patient is agreeable with this. Patient was instructed to continue his levothyroxine as previously prescribed. Patient was instructed to follow-up with his primary care physician in 3 to 5 days. Patient was instructed to return if worse in any way. Patient understoodand was agreeable with the plan. All questions were answered. Discharge Plan Triage Chief Complaint: Confusion ED Provider: Gilberto Lorenzo Dx/Rx/DC Orders Clinical Impression: Confusion, Hypothyroidism, COPD (chronic obstructive pulmonary disease), Tobacco use, Diabetes mellitus, type II, Urinary tract infection Instructions: ED Confusion, ED Diabetic Hyperglycemia, ED Hypothyroidism, ED Bladder Infection, Male (Adult) Prescriptions: New cephalexin 500 mg capsule 500 mg PO Q6 Qty: 12 0RF No Action metformin 500 MG tablet 500 mg PO DAILY Patient Comments: diabetic medication lisinopril 20 MG tablet 20 mg PO DAILY Patient Comments: bp medication gabapentin 300 MG capsule 300 mg PO QHS Patient Comments: for neuropathy omeprazole 20 MG capsule 40 mg PO DAILY Patient Comments: medication for acid reflux duloxetine 60 MG capsule 60 mg PO BID Patient Comments: anti-depressant albuterol sulfate 2.5 MG/3 ML solution for nebulization 2.5 mg inhalation Q2H PRN PRN (Reason: SHORTNESS OF BREATH ) Qty: 1 0RF Patient Comments: breathing levothyroxine 75 MCG tablet 175 mcg PO DAILY@0600 Patient Comments: thyroid budesonide-formoterol [Symbicort] 1 INHALER inhaler 2 puff inhalation BID meclizine 25 MG tablet 25 mg PO DAILY PRN (Reason: Dizziness) atorvastatin 10 MG tablet 10 mg PO QHS Patient Comments: cholesterol apixaban 5 MG tablet 5 mg PO BID albuterol sulfate [Ventolin HFA] 90 mcg/actuation HFA aerosol inhaler 2 puff inhalation Q4H PRN PRN (Reason: Wheezing) Qty: 6.7 0RF lidocaine [Lidoderm] 5 % adhesive patch,medicated 1 patch topical DAILY PRN (Reason: pain) Qty: 15 0RF Rx Instructions: leave on most painful area for up to 12 hrs Primary Care Provider: Kaushik Seals Referrals: Kaushik Seals MD [Primary Care Provider] - 3-5 Days Activity Restrictions/Additional Instructions: Take your thyroid medicine as previously prescribed. Follow-up with your primary care physician in 3 to 5 days for repeat evaluation. Take your antibiotics as prescribed until gone. Print Language: Indonesian Disposition Disposition: Home, Self Care What to do if you have Problems For any increased pain, shortness of breath, bleeding, nausea or vomiting, chestpain, or any unexpected problems, contact your Primary Care Provider. Call [facility] ([phone]) or report to the closest Emergency Room. Call 911 if necessary. 12/07/24 0011 <Electronically signed by Gilberto Lorenzo DO> Cosigner Signature (if applicable): CC: Dr. Kaushik Seals MD ~ Signed [facility] Work Phone: [phone] History of Present illness Narrative* Georgie Barreto MD - 11/03/2024 1:30 PM EDT Images from the original note were not included. . Res[facility] [place] Note Patient name: Lucas Mccabe PCP: Kaushik Seals MD CC: Follow-up COPD HPI: Lucas Mccabe 59 year old male heavy smoker with PMH significant for morbid obesity, HTN, GERD, FVL mutation, PE/DVT, DM, hypothyroidism, COPD/GOLD 3 (FEV1 43%), LEONEL not on CPAP first and last seen by me in March 2021. At that time I counseled him on smoking cessation, started Breztri with as needed albuterol and referred him to lung cancer screening program. Last low-dose CT of the chest was in 2021 with reading of lung RADS category 2. He has not followed up. From a pulmonary standpoint he states he has been exactly the same as he was when he first saw me. He has severe dyspnea onexertion, he has chronic cough without much sputum production. He has persistent wheezing mainly atnight. He is noncompliant with use of his nocturnal oxygen nor his CPAP. He is compliant with use of his Breztri. He continues to smoke up to 2 packs of cigarettes a day and has no desire to quit smoking. He has not been ill with any upper respiratory infection nor required hospitalization. DME: [facility] DATA: PFT: Imaging / Diagnostic Studies: Last CT chest 2022: No suspicious lesions Lung cancer screen 2021: Review of CT shows emphysema changes in several small pulmonary nodules PAST MEDICAL HISTORY Diagnosis Date Chronic pain Displacement of intervertebral disc, site unspecified, without myelopathy 05/06/2005 DVT (deep venous thrombosis) (HCC) Esophageal reflux Factor V Leiden mutation (HCC) Generalized osteoarthrosis, unspecified site Hypothyroidism Myalgia and myositis, unspecified Neuralgia, neuritis, and radiculitis, unspecified Obesity, unspecified LEONEL (obstructive sleep apnea) Pulmonary embolism ([facility]) 03/2020 Spondylosis of unspecified site without mention of myelopathy Thoracic or lumbosacral neuritis or radiculitis, unspecified 04/01/2005 Type 2 diabetes mellitus ([facility]) Unspecified essential hypertension ALLERGIES Allergen Reactions Latex Intolerance Headache, dizzy, trouble breathing Zomig [Zolmitriptan] Mental Status Change albuterol HFA (VENTOLIN HFA) 90 mcg/actuation inhaler INHALE 2 PUFFS ORALLY DIRECTED EVERY 4 HOURS NEEDED [id number] (BREZTRI AEROSPHERE) 160-9-4.8 mcg/actuation HFA aerosol inhaler Inhale 2 Puffs as instructed two times a day. DULoxetine (CYMBALTA) 60 mg capsule Take 1 capsule by mouth two times a day. furosemide (LASIX) 40 mg tablet Take 1 tablet by mouth once daily. gabapentin (NEURONTIN) 300 mg capsule Take 1 capsule by mouth daily at bedtime for 186 days. levothyroxine (SYNTHROID) 200 mcg tablet Take 1 tablet by mouth once daily. Take on empty stomach. For Thyroid. levothyroxine (SYNTHROID) 75 mcg tablet Take 1 tablet by mouth once daily. Take on empty stomach. For Thyroid. To be taken with Levothyroxine 200 mcg tablet to make 275 mcg daily lisinopril (ZESTRIL) 20 mg tablet Take 1 tablet by mouth once daily. metFORMIN (GLUCOPHAGE) 500 mg tablet Take 2 tablets by mouth daily with breakfast. Meclizine HCl 50 mg tablet Take 50 mg by mouth two times a day as needed (dizziness). omeprazole (PRILOSEC) 40 mg capsule Take 1 capsule by mouth once daily. apixaban (ELIQUIS) 5 mg tab(s) Take 1 tablet by mouth two times a day. glimepiride (AMARYL) 4 mg tablet Take 1 tablet by mouth daily with breakfast. guaiFENesin (MUCINEX) 600 mg 12 hr tablet Take 2 tablets by mouth two times a day as needed for cold/allergy symptoms. atorvastatin (LIPITOR) 10 mg tablet Take 1 tablet by mouth once daily. Blood-Glucose Meter monitoring kit Glucose Meter of Choice - Kit - Dx: Type 2 DM - Uncontrolled E11.65 (Patient not taking: Reported on 11/03/2024) blood sugar diagnostic (BLOOD GLUCOSE TEST) test strip Test blood sugar(s) 1 times daily. Dx: Type 2 DM - Uncontrolled E11.65 Insulin: No (Patient not taking: Reported on 11/03/2024) Lancets Test blood sugar(s) 1 times daily. Dx: Type 2 DM - Uncontrolled E11.65 Insulin: No (Patientnot taking: Reported on 11/03/2024) Social History Tobacco Use Smoking status: Every Day Current packs/day: 2.00 Average packs/day: 2.0 packs/day for 46.2 years (92.4 ttl pk-yrs) Types: Cigarettes, Cigars Start date: 08/23/1978 Smokeless tobacco: Former Tobacco comments: smokes Cigars blackand maloney and cigarettes 2 ppd smoker Vaping Use Vaping status: Never Used Substance Use Topics Alcohol use: Yes Comment: 6 pack per year Drug use: No FAMILY HISTORY Problem Relation Age of Onset Diabetes Mother Hypertension Mother Cancer Mother pancreas Lung Cancer Mother Heart Father COPD Sister other (breathing issues) Sister Factor 5 Leiden Sister PAST SURGICAL HISTORY Procedure Laterality Date ARTHROSCOPY KNEE DIAGNOSTIC W/WO SYNOVIAL BX SPX 04/17/2003 Arthroscopy, knee, right knee COLONOSCOPY FLX DX W/COLLJ SPEC WHEN PFRMD 05/21/2014 Colonoscopy COLONOSCOPY FLX DX W/COLLJ SPEC WHEN PFRMD 05/27/15 Colonoscopy ESOPHAGOGASTRODUODENOSCOPY TRANSORAL DIAGNOSTIC 05/21/2014 EGD PMH, Social history, family history and surgical history reviewed and updated in EMR REVIEW OF SYSTEMS: CONSTITUTIONAL: No fevers, chills, nightsweats, unintended weight loss HEENT: Denies nasal congestion/sinus symptoms,allergy problems. EYES: No visual changes CARDIOVASCULAR: No chest pain, palpitations, orthopnea. Edema PULM: See HPI GI: No dysphagia/odynophagia, problematic reflux NEURO: Poor balance ambulates with a cane MUSC-SKEL: Arthritis pain PSY: No concerns regarding depression, anxiety INTEGUMENTARY: No new skin changes PHYSICAL EXAMINATION: BP 152/83 Pulse 78 Wt 330 lb (149.7kg) SpO2 95% General Appearance: Obese unkempt male, NAD. Skin: Venous stasis changes. Oropharynx: No oral lesions or thrush. Lungs: Not labored, normal to percussion, no wheezes, very diminished breath sounds, crackles in the right base. Heart: Regular rate and rhythm, soft murmur. Extremities: Edema, mild clubbing,. Assessment/Plan: 1. Severe COPD, GOLD stage 3 -Despite continuing smoking, he has not had dramatic decline in his COPD per pulmonary function testing -Smoking cessation recommended and reiterated today -Continue Breztri with as needed albuterol -Majority of shortness of breath is related to his obesity with underlying COPD 2. Cigarette smoker -Current smoker with sequelae of COPD -Smoking cessation strongly encouraged -Reenroll in lung cancer screening 3. Lung nodules -Small nodules requiring follow-up -See #2 4. Morbid obesity -BMI 44 -Weight loss advised Georgie Barreto MD [facility] [place] [facility] NoteHNO ID: [id number] Author: GEORGIE BARRETO MD Service: ? Author Type: Physician Type: Progress Notes Filed: 11/03/2024 14:27 Note Text: . [facility] [place] Note Patient name: Lucas Mccabe PCP: Kaushik Seals MD CC: Follow-up COPD HPI: Lucas Mccabe 59 year old male heavy smoker with PMH significant for morbid obesity, HTN, GERD, FVL mutation, PE/DVT, DM, hypothyroidism, COPD/GOLD 3 (FEV1 43%), LEONEL not on CPAP first and last seen by me in March 2021. At that time I counseled him on smoking cessation, started Breztri with as needed albuterol and referred him to lung cancer screening program. Last low-dose CT of the chest was in 2021 with reading of lung RADS category 2. He has not followed up. From a pulmonary standpoint he states he has been exactly the same as he was when he first saw me. He has severe dyspnea on exertion, he has chronic cough without much sputum production. He has persistent wheezing mainly at night. He is noncompliant with use of his nocturnal oxygen nor his CPAP. He is compliant with use of his Breztri. He continues to smoke up to 2 packs of cigarettes a day and has no desire to quit smoking. He has not been ill with any upper respiratory infection nor required hospitalization. DME: Lex DATA: PFT: Imaging / Diagnostic Studies: Last CT chest 2022: No suspicious lesions Lung cancer screen 2021: Review of CT shows emphysema changes in several small pulmonary nodules PAST MEDICAL HISTORY Diagnosis Date Chronic pain Displacement of intervertebral disc, site unspecified, without myelopathy 05/06/2005 DVT (deep venous thrombosis) ([facility]) Esophageal reflux Factor V Leiden mutation ([facility]) Generalized osteoarthrosis, unspecified site Hypothyroidism Myalgia and myositis, unspecified Neuralgia, neuritis, and radiculitis, unspecified Obesity, unspecified LEONEL (obstructive sleep apnea) Pulmonary embolism ([facility]) 03/2020 Spondylosis of unspecified site without mention of myelopathy Thoracic or lumbosacral neuritis or radiculitis, unspecified 04/01/2005 Type 2 diabetes mellitus ([facility]) Unspecified essential hypertension ALLERGIES Allergen Reactions Latex Intolerance Headache, dizzy, trouble breathing Zomig [Zolmitriptan] Mental Status Change albuterol HFA (VENTOLIN HFA) 90 mcg/actuation inhaler INHALE 2 PUFFS ORALLY DIRECTED EVERY 4 HOURS NEEDED mbllvgadiq-iaivdznu-btojqonfed (BREZTRI AEROSPHERE) 160-9-4.8 mcg/actuation HFA aerosol inhaler Inhale 2 Puffs as instructed two times a day. DULoxetine (CYMBALTA) 60 mg capsule Take 1 capsule by mouth two times a day. furosemide (LASIX) 40 mg tablet Take 1 tablet by mouth once daily. gabapentin (NEURONTIN) 300 mg capsule Take 1 capsule by mouth daily at bedtime for 186 days. levothyroxine (SYNTHROID) 200 mcg tablet Take 1 tablet by mouth once daily. Take on empty stomach. For Thyroid. levothyroxine (SYNTHROID) 75 mcg tablet Take 1 tablet by mouth once daily. Take on empty stomach. For Thyroid. To be taken with Levothyroxine 200 mcg tablet to make 275 mcg daily lisinopril (ZESTRIL) 20 mg tablet Take 1 tablet by mouth once daily. metFORMIN (GLUCOPHAGE) 500 mg tablet Take 2 tablets by mouth daily with breakfast. Meclizine HCl 50 mg tablet Take 50 mg by mouth two times a day as needed (dizziness). omeprazole (PRILOSEC) 40 mg capsule Take 1 capsule by mouth once daily. apixaban (ELIQUIS) 5 mg tab(s) Take 1 tablet by mouth two times a day. glimepiride (AMARYL) 4 mg tablet Take 1 tablet by mouth daily with breakfast. guaiFENesin (MUCINEX) 600 mg 12 hr tablet Take 2 tablets by mouth two times a day as needed for cold/allergy symptoms. atorvastatin (LIPITOR) 10 mg tablet Take 1 tablet by mouth once daily. Blood-Glucose Meter monitoring kit Glucose Meter of Choice - Kit - Dx: Type 2 DM - Uncontrolled E11.65 (Patient not taking: Reported on 11/03/2024) blood sugar diagnostic (BLOOD GLUCOSE TEST) test strip Test blood sugar(s) 1 times daily. Dx: Type 2 DM - Uncontrolled E11.65 Insulin: No (Patient not taking: Reported on 11/03/2024) Lancets Test blood sugar(s) 1 times daily. Dx: Type 2 DM - Uncontrolled E11.65 Insulin: No (Patient not taking: Reported on 11/03/2024) Social History Tobacco Use Smoking status: Every Day Current packs/day: 2.00 Average packs/day: 2.0 packs/day for 46.2 years (92.4 ttl pk-yrs) Types: Cigarettes, Cigars Start date: 08/23/1978 Smokeless tobacco: Former Tobacco comments: smokes Cigars blackand maloney and cigarettes 2 ppd smoker Vaping Use Vaping status: Never Used Substance Use Topics Alcohol use: Yes Comment: 6 pack per year Drug use: No FAMILY HISTORY Problem Relation Age of Onset Diabetes Mother Hypertension Mother Cancer Mother pancreas Lung Cancer Mother Heart Father COPD Sister other (breathing issues) Sister Factor 5 Leiden Sister PAST SURGICAL HISTORY Procedure Laterality Date A (more content not included)...[facility]03-14-2025 NoteHNO ID: [id number] Author: TIMUR MAGALLANES RRT Service: ? Author Type: Registered Resp Therapist Type: Progress Notes Filed: 11/03/2024 12:29 Note Text: .[facility]03-14-2025 History of Present illness Narrative* Timur Magallanes RRT - 11/03/2024 12:29 PM EDT . [facility]25 NoteHNO ID: [id number] Author: TIMUR MAGALLANES RRT Service: ? Author Type: Registered Resp Therapist Type: Progress Notes Filed: 11/03/2024 12:29 Note Text: PULM FUNCTION: Provider: Georgie Barreto MD Spirometry w/BD: 1 [facility] of Present illness Narrative * Timur Magallanes RRT - 11/03/2024 12:28 PM EDT PULM FUNCTION: Provider: Georgie Barreto MD Spirometry w/BD: 1 DLCO: 1 documented in this encounterW[facility]02-[facility] History of Present illness Narrative* Shaye Dobbins APRN.DIRECTOR HAIR - 10/18/2024 1:40 PM EST This is a 59 year old male who presents today with: Patient presents with: 6 Month Exam HISTORY OF PRESENT ILLNESS: Luacs Mccabe is a 59 year old male. Patient presents with: 6 Month Exam 6 month follow up, cancelled follow up appointment in the fall for his blood pressure. Hypothyroid: TSH was low in March, never completed follow up labs in May. Taking Synthroid 275mcg daily. On going fatigue. BPPV: Using Meclizine prn and referred to PT. Has yet to schedule. HTN: Taking lisinopril 20 mg daily. Lasix 40 mg daily. Not currently checking blood pressure at home. Denies chest pain, palpitations, or dizziness. History of PE/COPD: Taking Eliquis 5 mg BID. Taking breztri 2 puff BID, using albuterol inhaler as needed. Use to see pulmonology. Past due for follow-up. Lipids: Taking Liptor 10 mg daily. Not watching diet. DM2: Taking metformin 500 mg, 2 tablets daily with breakfast, glimepiride 4 mg daily. Not currentlychecking blood sugars at home. Denies increased urination/thirst. GERD: Taking Prilosec 40 mg daily. Symptoms well-controlled medication. DDD lumbar: Taking Gabapentin 300 mg at bedtime. Colonoscopy: Smoking 2 PPD Vaccines: Would like Flu vaccine today PAST MEDICAL HISTORY: PAST MEDICAL HISTORY Diagnosis Date Chronic pain Displacement of intervertebral disc, site unspecified, without myelopathy 05/06/2005 DVT (deep venous thrombosis) ([facility]) Esophageal reflux Factor V Leiden mutation ([facility]) Generalized osteoarthrosis, unspecified site Hypothyroidism Myalgia and myositis, unspecified Neuralgia, neuritis, and radiculitis, unspecified Obesity, unspecified LEONEL (obstructive sleep apnea) Pulmonary embolism ([facility]) 03/2020 Spondylosis of unspecified site without mention of myelopathy Thoracic or lumbosacral neuritis or radiculitis, unspecified 04/01/2005 Type 2 diabetes mellitus ([facility]) Unspecified essential hypertension PAST SURGICAL HISTORY Procedure Laterality Date ARTHROSCOPY KNEE DIAGNOSTIC W/WO SYNOVIAL BX SPX 04/17/2003 Arthroscopy, knee, right knee COLONOSCOPY FLX DX W/COLLJ SPEC WHEN PFRMD 05/21/2014 Colonoscopy COLONOSCOPY FLX DX W/COLLJ SPEC WHEN PFRMD 05/27/15 Colonoscopy ESOPHAGOGASTRODUODENOSCOPY TRANSORAL DIAGNOSTIC 05/21/2014 EGD ALLERGIES Latex and Zomig [Zolmitriptan] MEDICATIONS Current Outpatient Medications Medication Sig levothyroxine (SYNTHROID) 200 mcg tablet Take 1 tablet by mouth once daily. Take on empty stomach. For Thyroid. levothyroxine (SYNTHROID) 75 mcg tablet Take 1 tablet by mouth once daily. Take on empty stomach. For Thyroid. To be taken with Levothyroxine 200 mcg tablet to make 275 mcg daily meclizine 50 mg tablet Take 50 mg by mouth two times a day as needed (dizziness). omeprazole (PRILOSEC) 40 mg capsule Take 1 capsule by mouth once daily. apixaban (ELIQUIS) 5 mg tab(s) Take 1 tablet by mouth two times a day. Blood-Glucose Meter monitoring kit Glucose Meter of Choice - Kit - Dx: Type 2 DM - Uncontrolled E11.65 blood sugar diagnostic (BLOOD GLUCOSE TEST) test strip Test blood sugar(s) 1 times daily. Dx: Type 2 DM - Uncontrolled E11.65 Insulin: No glimepiride (AMARYL) 4 mg tablet Take 1 tablet by mouth daily with breakfast. Lancets Test blood sugar(s) 1 times daily. Dx: Type 2 DM - Uncontrolled E11.65 Insulin: No guaiFENesin (MUCINEX) 600 mg 12 hr tablet Take 2 tablets by mouth two times a day as needed for cold/allergy symptoms. albuterol HFA (VENTOLIN HFA) 90 mcg/actuation inhaler INHALE 2 PUFFS ORALLY DIRECTED EVERY 4 HOURS NEEDED metFORMIN (GLUCOPHAGE) 500 mg tablet Take 2 tablets by mouth daily with breakfast. atorvastatin (LIPITOR) 10 mg tablet Take 1 tablet by mouth once daily. furosemide (LASIX) 40 mg tablet Take 1 tablet by mouth once daily. DULoxetine (CYMBALTA) 60 mg capsule Take 1 capsule by mouth two times a day. bihqaursdi-tvtuzjgw-yjpabkrayj (BREZTRI AEROSPHERE) 160-9-4.8 mcg/actuation HFA aerosol inhaler Inhale 2 Puffs as instructed two times a day. gabapentin (NEURONTIN) 300 mg capsule Take 1 capsule by mouth daily at bedtime for 186 days. lisinopril (ZESTRIL) 20 mg tablet Take 1 tablet by mouth once daily. celecoxib (CELEBREX) 100 mg capsule Take 1 capsule by mouth two times a day. No current facility-administered medications for this visit. FAMILY HISTORY Problem Relation Age of Onset Diabetes Mother Hypertension Mother Cancer Mother pancreas Lung Cancer Mother Heart Father COPD Sister other (breathing issues) Sister Factor 5 Leiden Sister Social History Tobacco Use Smoking status: Every Day Current packs/day: 2.00 Average packs/day: 2.0 packs/day for 46.2 years (92.3 ttl pk-yrs) Types: Cigarettes, Cigars Start date: 08/23/1978 Smokeless tobacco: Former Tobacco comments: smokes Cigars blackAppointedd maloney and cigarettes 2 ppd smoker Vaping Use Vaping status: Never Used Substance Use Topics Alcohol use: Yes Comment: 6 pack per year Drug use: No REVIEW OF SYSTEMS GENERAL: No weight loss, malaise or fevers/chills HEENT: Negative for frequent or significant headaches, No changes in hearing or vision. NECK: Negative for lumps, goiter, pain and significant neck swelling RESPIRATORY: Negative for cough, hemoptysis, wheezing, dyspnea or shortness of breath CARDIOVASCULAR: Negative for chest pain, leg swelling, orthopnea, or palpitations GI: No nausea, vomiting, or diarrhea/constipation. No hematochezia/melena. No heartburn or reflux symptoms. : No history of dysuria, frequency or incontinence MUSCULOSKELETAL: Negative for joint pain or swelling. SKIN: Negative for lesions, rash, and itching ENDOCRINE: Negative for cold or heat intolerance, polyuria, polydipsia and goiter NEURO: No history of headaches, syncope, paralysis, seizures or tremors MOOD: Negative for depression, anxiety, or suicidal ideation. EXAM: BP 140/88 Pulse 79 Resp 16 Wt (!) 150 kg (330 lb 11 oz) SpO2 93% BMI 44.85 kg/m PHYSICAL EXAM: General Appearance: Well appearing, alert, in no acute distress, well-hydrated, well nourished. Skin: Skin color, texture, turgor normal, no suspicious rashes or lesions. Head: Normocephalic, no masses, lesions, tenderness or abnormalities. Eyes: Anicteric sclera. Extraocular movements are intact. Ears: External ears normal, canals clear. TMs pearly burger. Neck: Supple, no adenopathy; thyroid symmetric, normal size, no bruits. Lungs: Cough Wheezes and rhonchi noted. Heart: RRR without murmur, gallop, or rubs. No ectopy. Extremities: No deformities, edema, skin discoloration, clubbing or cyanosis. Good capillary refill. Peripheral Pulses: Normal, Capillary refill <2secs, strong peripheral pulses, Pulses palpable. Neurologic: Gait normal. Sensation grossly intact. ASSESSMENT/PLAN: 1. COPD with acute exacerbation (HCC) - ICD9: 491.21, ICD10: J44.1 (primary diagnosis) - Start doxycycline and prednisone burst. - Continue supportive care at home. - DOXYCYCLINE HYCLATE 100 MG CAPSULE - PREDNISONE 20 MG TABLET 2. Chronic obstructive pulmonary disease, unspecified COPD type (HCC) - ICD9: 496, ICD10: J44.9 - Refills provided, recommend follow-up with pulmonology. - Smoking cessation encouraged - ALBUTEROL SULFATE HFA 90 MCG/ACTUATION AEROSOL INHALER - CONSULT TO PULMONARY MEDICINE 3. Centrilobular emphysema (HCC) - ICD9: 492.8, ICD10: J43.2 - BREZTRI AEROSPHERE 160 MCG-9MCG-4.8MCG/ACTUATION HFA AEROSOL INHALER - CONSULT TO PULMONARY MEDICINE 4. Tobacco use disorder - ICD9: 305.1, ICD10: F17.200 - Cessation encouraged. - Physiologic and physical aspects of tobacco addiction as well as strategies for quitting were discussed. - Counseling was given focusing on the harmful effects of this addiction especially given the patient's medical condition(s) which will be worsened because of the chemicals in tobacco. 5. Fatigue, unspecified type - ICD9: 780.79, ICD10: R53.83 - COMPLETE BLOOD COUNT AND DIFFERENTIAL - IRON AND TIBC - FERRITIN - VITAMIN B12 - VITAMIN D 25 HYDROXY 6. Essential hypertension - ICD9: 401.9, ICD10: I10 - Uncontrolled - Continue current medications - Recommend home blood pressure monitoring, to bring results to next visit - Encouraged sodium restriction, DASH or Mediterranean diet - Recommend regular aerobic exercise - Discussed need for and benefit of weight loss. BMI 44.85 kg/(m^2) - Smoking cessation encouraged; discussed risks to health and quitting strategies. Patient is not ready to quit - COMPREHENSIVE METABOLIC PANEL 7. Hyperlipidemia, mixed - ICD9: 272.2, ICD10: E78.2 - Control undetermined, due for labs - Continue current medications - Counseled on healthy diet and regular exercise - Discussed need for and benefit of weight loss. BMI 44.85 kg/(m^2) - LIPID PANEL BASIC 8. Type 2 diabetes, controlled, with neuropathy (HCC) - ICD9: 250.60, 357.2, ICD10: E11.40 - Control undetermined, due for labs - Continue current medications - Counseled on healthy diet and regular exercise - Discussed need for and benefit of weight loss. BMI 44.85 kg/(m^2) - GABAPENTIN 300 MG CAPSULE - METFORMIN 500 MG TABLET - HEMOGLOBIN A1C 9. BPPV (benign paroxysmal positional vertigo), unspecified laterality - ICD9: 386.11, ICD10: H81.10 - Refill provided. - MECLIZINE 50 MG TABLET 10. Embolism and thrombosis (HCC) - ICD9: 453.9, ICD10: I74.9 - History of PE - Continue with Eliquis 11. Acquired hypothyroidism - ICD9: 244.9, ICD10: E03.9 - Instructed patient on importance of taking on an empty stomach either first thing in the morning or at bedtime. - LEVOTHYROXINE 200 MCG TABLET - THYROID STIMULATING HORMONE - T4 FREE/FREE THYROXINE 12. Chronic pain syndrome - ICD9: 338.4, ICD10: G89.4 - Stable refill provided - GABAPENTIN 300 MG CAPSULE 13. Obstructive sleep apnea - ICD9: 327.23, ICD10: G47.33 - Continue with CPAP 14. Gastroesophageal reflux disease, unspecified whether esophagitis present - ICD9: 530.81, ICD10:K21.9 - Stable, continue to take current medication 15. Venous insufficiency - ICD9: 459.81, ICD10: I87.2 - Stable refill provided. - FUROSEMIDE 40 MG TABLET 16. DDD (degenerative disc disease), lumbar - ICD9: 722.52, ICD10: M51.369 - Stable, refill provided - GABAPENTIN 300 MG CAPSULE 17. Encounter for immunization - ICD9: V03.89, ICD10: Z23 - VIS provided - INFLUENZA VACCINE, AGE 6MO-64YR, TRIVALENT (AFLURIA, FLULAVAL, FLUVIRIN, FLUZONE) 18. Screening for colon cancer - ICD9: V76.51, ICD10: Z12.11 - CONSULT TO GENERAL SURGERY 19. Screening for prostate cancer - ICD9: V76.44, ICD10: Z12.5 - PSA/PROSTATE SPECIFIC ANTIGEN SCREENING Follow-up in 3 months or sooner pending test results. Discussed treatment plan and patient voices understanding. Patient's questions answered appropriately. Medications and potential side effects were discussed and patient voices understanding. Shaye Dobbins APRN.CNP This note was partially generated using [employer] voice recognition system. Note was reviewed for accuracy. There may be minor misspellings or grammar miscues with [employer] voice recognition. I spent a total of 40 minutes on the date of the service which included preparing to see the patient, [id number] patient care, completing clinical documentation, obtaining and/or reviewing separately obtained history, performing a medically appropriate examination, counseling and educating the pat ient/family/caregiver, and ordering medications, tests, or procedures. documented in this [facility] NoteHNO ID: [id number] Author: TANNHOF, SHAYE, SENIOR CORPORATE STRATEGY MANAGER.DIRECTOR HAIR Service: ? Author Type: Nurse Practitioner Type: Progress Notes Filed: 10/18/2024 18:58 Note Text: This is a 59 year old male who presents today with: Patient presents with: 6 Month Exam HISTORY OF PRESENT ILLNESS: Lucas Mccabe is a 59 year old male. Patient presents with: 6 Month Exam 6 month follow up, cancelled follow up appointment in the fall for his blood pressure. Hypothyroid: TSH was low in March, never completed follow up labs in May. Taking Synthroid 275 mcg daily. On going fatigue. BPPV: Using Meclizine prn and referred to PT. Has yet to schedule. HTN: Taking lisinopril 20 mg daily. Lasix 40 mg daily. Not currently checking blood pressure at home. Denies chest pain, palpitations, or dizziness. History of PE/COPD: Taking Eliquis 5 mg BID. Taking breztri 2 puff BID, using albuterol inhaler as needed. Use to see pulmonology. Past due for follow-up. Lipids: Taking Liptor 10 mg daily. Not watching diet. DM2: Taking metformin 500 mg, 2 tablets daily with breakfast, glimepiride 4 mg daily. Not currently checking blood sugars at home. Denies increased urination/thirst. GERD: Taking Prilosec 40 mg daily. Symptoms well-controlled medication. DDD lumbar: Taking Gabapentin 300 mg at bedtime. Colonoscopy: Smoking 2 PPD Vaccines: Would like Flu vaccine today PAST MEDICAL HISTORY: PAST MEDICAL HISTORY Diagnosis Date Chronic pain Displacement of intervertebral disc, site unspecified, without myelopathy 05/06/2005 DVT (deep venous thrombosis) ([facility]) Esophageal reflux Factor V Leiden mutation (HCC) Generalized osteoarthrosis, unspecified site Hypothyroidism Myalgia and myositis, unspecified Neuralgia, neuritis, and radiculitis, unspecified Obesity, unspecified LEONEL (obstructive sleep apnea) Pulmonary embolism (HCC) 03/2020 Spondylosis of unspecified site without mention of myelopathy Thoracic or lumbosacral neuritis or radiculitis, unspecified 04/01/2005 Type 2 diabetes mellitus (HCC) Unspecified essential hypertension PAST SURGICAL HISTORY Procedure Laterality Date ARTHROSCOPY KNEE DIAGNOSTIC W/WO SYNOVIAL BX SPX 04/17/2003 Arthroscopy, knee, right knee COLONOSCOPY FLX DX W/COLLJ SPEC WHEN PFRMD 05/21/2014 Colonoscopy COLONOSCOPY FLX DX W/COLLJ SPEC WHEN PFRMD 05/27/15 Colonoscopy ESOPHAGOGASTRODUODENOSCOPY TRANSORAL DIAGNOSTIC 05/21/2014 EGD ALLERGIES Latex and Zomig [Zolmitriptan] MEDICATIONS Current Outpatient Medications Medication Sig levothyroxine (SYNTHROID) 200 mcg tablet Take 1 tablet by mouth once daily. Take on empty stomach. For Thyroid. levothyroxine (SYNTHROID) 75 mcg tablet Take 1 tablet by mouth once daily. Take on empty stomach. For Thyroid. To be taken with Levothyroxine 200 mcg tablet to make 275 mcg daily meclizine 50 mg tablet Take 50 mg by mouth two times a day as needed (dizziness). omeprazole (PRILOSEC) 40 mg capsule Take 1 capsule by mouth once daily. apixaban (ELIQUIS) 5 mg tab(s) Take 1 tablet by mouth two times a day. Blood-Glucose Meter monitoring kit Glucose Meter of Choice - Kit - Dx: Type 2 DM - Uncontrolled E11.65 blood sugar diagnostic (BLOOD GLUCOSE TEST) test strip Test blood sugar(s) 1 times daily. Dx: Type 2 DM - Uncontrolled E11.65 Insulin: No glimepiride (AMARYL) 4 mg tablet Take 1 tablet by mouth daily with breakfast. Lancets Test blood sugar(s) 1 times daily. Dx: Type 2 DM - Uncontrolled E11.65 Insulin: No guaiFENesin (MUCINEX) 600 mg 12 hr tablet Take 2 tablets by mouth two times a day as needed for cold/allergy symptoms. albuterol HFA (VENTOLIN HFA) 90 mcg/actuation inhaler INHALE 2 PUFFS ORALLY DIRECTED EVERY 4 HOURS NEEDED metFORMIN (GLUCOPHAGE) 500 mg tablet Take 2 tablets by mouth daily with breakfast. atorvastatin (LIPITOR) 10 mg tablet Take 1 tablet by mouth once daily. furosemide (LASIX) 40 mg tablet Take 1 tablet by mouth once daily. DULoxetine (CYMBALTA) 60 mg capsule Take 1 capsule by mouth two times a day. eweczzbcwe-anrjpqkn-srceyvzhfc (BREZTRI AEROSPHERE) 160-9-4.8 mcg/actuation HFA aerosol inhaler Inhale 2 Puffs as instructed two times a day. gabapentin (NEURONTIN) 300 mg capsule Take 1 capsule by mouth daily at bedtime for 186 days. lisinopril (ZESTRIL) 20 mg tablet Take 1 tablet by mouth once daily. celecoxib (CELEBREX) 100 mg capsule Take 1 capsule by mouth two times a day. No current facility-administered medications for this visit. FAMILY HISTORY Problem Relation Age of Onset Diabetes Mother Hypertension Mother Cancer Mother pancreas Lung Cancer Mother Heart Father COPD Sister other (breathing issues) Sister Factor 5 Leiden Sister Social History Tobacco Use Smoking status: Every Day Current packs/day: 2.00 Average packs/day: 2.0 packs/day for 46.2 years (92.3 ttl pk-yrs) Types: Cigarettes, Cigars Start date: 08/23/1978 Smokeless tobacco: Former Tobacco comments: (more content not included)...[facility] 10-18-2024 Instructions* Patient Instructions* Shaye Dobbins APRN.CNP - 10/18/2024 1:36 PM EST Start Doxycycline twice daily Start Prednisone burst 40 mg daily for 5 days Recommend smoking cessation Get fasting labs completed, no food for 10-12 hours prior, you can have black coffee and water Schedule follow up with Pulmonology Schedule consult with general surgery to discuss colonoscopy Do not take Celebrex or other NSAIDS while on blood thinner, may use Tylenol as needed. Follow up in 3 months or sooner as needed. [facility] History of Present illness Narrative* Karissa Garcia, PT - 05/02/2024 10:17 AM EDT Program_ID:[id number] Access Code: [email or web address] URL: [email or web address] Date: 05-02-2024 Prepared By: Karissa Garcia Program Notes Exercises - Seated Gaze Stabilization with Head Nod - 1-2 x daily - 7 x weekly - 2 sets - 10 reps - Seated Gaze Stabilization with Head Rotation - 1-2 x daily - 7 x weekly - 2 sets - reps * Karissa Garcia, PT - 05/02/2024 9:42 AM EDT Images from the original note were not included. Episode Visit Count: 1 Therapist That Will Accept/Oversee The Plan Of Care: Karissa Garcia Start of Care Date: 05/02/24 Onset Date: 05/02/22 Plan of Care Certification Date: 05/02/24 Next Certification Due Date: 06/06/24 Patient Identified by Name and Date of : Yes REHABILITATION AND SPORTS THERAPY PHYSICAL THERAPY EVALUATION PLAN OF CARE: Assessment: Lucas Mccabe presents with diagnosis of BPPV and dizziness that interferes with physical activities, walking in the community . He presents with impairments in ADL's, balance, gait, independence in exercise, joint mobility, overall function, patient reported outcome measures, rangeof motion, strength, stress management, and symptom management. PROMIS (Patient-Reported Outcomes Measurement Information System) scores were reviewed and identified as a rehabilitation concern. Prognosis for therapy is Fair due to: poor historian, poor understanding of deficits, coping skills, clinical presentation, multiple co- morbidities, chronic nature of impairments, memory deficits . He will benefit from skilled therapy services to meet the goals established for this plan of care as noted below. Goals for Episode of Care: established 05/02/24 Patient will be independent with home exercise program and progression. Patient will return to prior level of function with all activities of daily living with trace reports of dizziness. Patient will deny dizziness with walking and when on the move . Patient will be able to walk household and community distances with safe, functional gait pattern with trace report of dizziness/imbalance. Patient Goals: reduce dizziness Time Frame for Goals and Treatment : 05/30/24 Planned Interventions, Frequency, and Duration: Current Frequency: 1x/week Duration: 4 weeks Total Number of Visits Planned: 4 Planned Treatment Interventions: Therapeutic exercise (29902), Neuromuscular re- education (20769), Manual therapy (58506), Therapeutic activities (73301), Self- residential management (92874), Gait Training (15085) PLAN FOR NEXT VISIT: assess symptom resposne to VORx1 Patient demonstrates fair understanding of plan of care and treatment. The above goals and plan of care were discussed and agreed upon by patient/family. SUBJECTIVE: for dizziness described as self spinning. Onset when he got news that his friend past away. Pt. stays on the propery of a friend in his vehicle. Spinning lasts about 30 minutes but initially lasted aweek. He takes meclizine which he reports is effective for symptoms. Patient Goals: reduce dizziness Functional Limitations: physical activities, walking in the community Prior Level of Function: Independent without limitations Home Environment Patient Lives With: Other: See Comment Comments: lives on friends property in his vehicle Intake Information: Prescription present Falls Interview: No positive findings with falls interview Concussion History of Concussion: Yes (yes) Number of Concussions: 2 Vestibular Symptoms present for: weeks Symptom onset: sudden Dizziness: No Imbalance: Yes Imbalance triggered by: Head movement Imbalance Comments: denies falls Fall Assessment: History of falls Frequency of falls: Intermittent When was your most recent fall?: pt. poor historian does not specify when or how Dizziness during fall?: unsure How often do you lose your balance?: unsure Nausea: yes - with head movement Headache: No Neck Symptoms: No Jaw Symptoms: No Ear Symptoms: No Hearing Changes: No recent changes Tinnitus: No recent changes History of Syncope: No History of Migraine: No Pain: Post Treatment Pain Post Treatment Symptoms: symptoms seem to resolve with rest between sets of VORx1 exercises PROMIS Scales 05/02/2024 Higher is Better Phys Func - Score 38 (moderate dysfunction) Phys Func - Percentile 12 Self-Eff Symptom - Score 45 (Average) Self-Eff Symptom - Percentile 31 T-scores: mean of general population = 50. 5 points is clinically meaningfully difference Percentiles provide an indication of how the patient's score ranks in relation to the general population. Higher percentile rankings indicate better function/quality of life. 50th percentile is the average of the general population and indicates half of respondents had a worse score. OBJECTIVE MEASURES WITH LEVEL OF FUNCTION: Posture / Alignment Posture: Forward head, Increased thoracic kyphosis Oculomotor Testing Fixation Present Ocular ROM: WNL Spontaneous Nystagmus: No nystagmus Gaze Evoked Nystagmus: Not Present Smooth pursuit: Horizontal, Vertical and Diagonal all WNL VOR cancelation: Negative Convergence (Distance): >12 VOR to slow head movements: Positive X1 Viewing - Horizontal: positive X1 Viewing - Vertical: positive Positional Testing Positional Test Comments: NT Gait Gait: Modified Independent Gait Distance (feet): 100 Gait Device: Cane Gait Deviations: General Deviations General Deviations/Observations: Lateral sway increased, Flexed trunk posture, Haydee decreased, Shuffling Gait, Trunk Control Decreased, Wide base of support, Step length decreased Education: Education Learning Preferences: Demonstration, Explanation, Performance, Printed Materials Barriers: Psychomotor Limitations, Emotions Learning/educational needs: Home exercise program, Plan of Care, Posture Education Provided: Yes, see treatment interventions for education provided Education Provided To: Patient Education Mode/Type: Demonstration, Explanation/Discussion, Literature/Printed Materials, Performance Response to Education/Teach Back: States/Identifies, Return Demonstration TREATMENT: PT Treatment Interventions: Therapeutic Exercise, Self-Longterm Management Evaluation Neuromuscular Re-Education: Skilled Intervention: Skilled judgment used to assess appropriate program for balance and coordination activity. Education in proprioceptive/kinesthetic awareness during sitting and VORx1. Ensured patient safety with use of seated position Reviewed and educated patient on additions/changes for home program as noted above with an (*). Patient education as noted. Self-Longterm Management: 1: discussed purpose of adaptation exercises 2: discussed seeing physician regarding his concerns with occasional ear pain. Skilled Intervention: Skilled judgment in the selection of proper modification for activity of daily living/home management based on clinical presentation, deficits, and needs. Provided written instruction for activities of daily living techniques to facilitate proper performance and compliance. Reviewed patient specific diagnosis in relation to activities of daily living/home management. Activity progression based on professional judgement. Reviewed and educated patient on additions/changes for home program as noted above with an (*). Correct performance of home program was facilitated with verbal, visual, and tactile cueing. Billing * Evaluation Moderate Complexity: 1 Unit Therapeutic Exercise Treatment Minutes: 8 Self-Care/Home Management Treatment Minutes: 2 Skilled Treatment Time Minutes (timed and untimed codes): 40 Total Session Time (minutes): 40 Session Start Time : 0940 Session Stop Time : 1020 Karissa Garcia PT documented [facility] Telephone encounter Note * Telephone Encounter - Joslyn Saenz RN - 04/12/2024 4:24 PM EDT Patient returned call. Pt agreeable to medication change and understands new instructions. Pt agreeable to lab order in 6 weeks. Physical Therapy appt has been made. Joslyn Saenz RN [facility] Miscellaneous Notes* Telephone Encounter - Joslyn Saenz RN - 04/12/2024 4:24 PM EDT Patient returned call. Pt agreeable to medication change and understands new instructions. Pt agreeable to lab order in 6 weeks. Physical Therapy appt has been made. Joslyn Saenz RN * Telephone Encounter - Jasmin Arora LPN - 04/12/2024 2:41 PM EDT TC to Pt. Unable to LM due to the mailbox is not set up. Will try again later. Jasmin Arora LPN * Telephone Encounter - Micky Cabezas APRN.DIRECTOR HAIR - 04/12/2024 8:32 AM EDT Please let the patient know that his complete blood count is normal. Glucose is 198. TSH is too suppressed. I don't believe this is causing his vertigo symptoms. But we need to reduce his levothyroxine dose and repeat TSH is 6 weeks. I placed repeat labs. For the medication, I sent in a 200 mcg tablet and a 75 mcg tablet for him tori taken together to make 275 mcg total for the day. Also, I don't see where he got an appointment with PHYSICAL THERAPY for his vertigo. He was supposed to be scheduled prior to leaving yesterday. The following approved medication requests have been transmitted electronically. Requested Prescriptions Signed Prescriptions Disp Refills levothyroxine (SYNTHROID) 200 mcg tablet 90 tablet 0 Sig: Take 1 tablet by mouth once daily. Take on empty stomach. For Thyroid. Authorizing Provider: MICKY CABEZAS levothyroxine (SYNTHROID) 75 mcg tablet 90 tablet 0 Sig: Take 1 tablet by mouth once daily. Take on empty stomach. For Thyroid. To be taken with Levothyroxine 200 mcg tablet to make 275 mcg daily Authorizing Provider: MICKY CABEZAS APRN.DARNELL documented in this [facility] Telephone encounter Note * Telephone Encounter - Jasmin Arora LPN - 04/12/2024 2:41 PM EDT TC to Pt. Unable to LM due to the mailbox is not set up. Will try again later. Jasmin Arora LPN [facility]08-[facility] Telephone encounter Note* Telephone Encounter - Micky Cabezas APRN.DIRECTOR HAIR - 04/12/2024 8:32 AM EDT Please let the patient know that his complete blood count is normal. Glucose is 198. TSH is too suppressed. I don't believe this is causing his vertigo symptoms. But we need to reduce his levothyroxine dose and repeat TSH is 6 weeks. I placed repeat labs. For the medication, I sent in a 200 mcg tablet and a 75 mcg tablet for him tori taken together to make 275 mcg total for the day. Also, I don't see where he got an appointment with PHYSICAL THERAPY for his vertigo. He was supposed to be scheduled prior to leaving yesterday. The following approved medication requests have been transmitted electronically. Requested Prescriptions Signed Prescriptions Disp Refills levothyroxine (SYNTHROID) 200 mcg tablet 90 tablet 0 Sig: Take 1 tablet by mouth once daily. Take on empty stomach. For Thyroid. Authorizing Provider: MICKY CABEZAS levothyroxine (SYNTHROID) 75 mcg tablet 90 tablet 0 Sig: Take 1 tablet by mouth once daily. Take on empty stomach. For Thyroid. To be taken with Levothyroxine 200 mcg tablet to make 275 mcg daily Authorizing Provider: MICKY CABEZAS APRN.CNP [facility] Instructions* Patient Instructions* Micky Cabezas APRN.CNP - 04/11/2024 2:40 PM EDT Increase Meclizine to 50 mg twice daily as needed. No more than this dose. Get blood work today. See PHYSICAL THERAPY If you develop chest pain, shortness of breath, you pass out, you start having worsening dizziness,slurred speech, drooling, weakness of one side, then I want you to go to the ER immediately. Micky Cabezas APRN.DARNELL documented in this [facility]08[facility] History of Present illness Narrative* Micky Cabezas APRN.CNP - 04/11/2024 2:20 PM EDT Chief Complaint Patient presents with: Dizziness HPI Lucas Mccabe is a 59 year old male who presents here today for Above Complaints. Patient presents the office today for complaints of dizziness, nausea, feelings of off balance. Patient has a history of BPPV. He has been taking his meclizine 25 mg as needed for dizziness but this is not helping. Duration of symptoms is approximately the past few days. He denies any headache, shortness of breath, facial drooping, unilateral weakness, trouble with speech. Symptoms worsen when patient turns head quickly, worsens with walking. States that this started on Wednesday when he was told that his friend had . Patient currently lives in his truck on his friend's property. Closing his eyes, taking meclizine, taking a nap will cause the symptoms to improve. Prior to these symptoms,he denies any trauma, falls. Of note, patient is a poorly controlled diabetic, he is on chronic anticoagulation with Eliquis, has a history of factor V Leiden, PE, COPD, hypertension, hypothyroidism. BP is elevated today. Has been taking his blood pressure medication as prescribed. Past medical history, appointments, medications, allergies reviewed. EXAM: BP 160/70 Pulse 86 SpO2 96% General Appearance: Well appearing, alert, in no acute distress, well-hydrated, well nourished.. Head: Normocephalic, no masses, lesions, tenderness or abnormalities. Eyes: Anicteric sclera. Pupils are equally round and reactive to light. Extraocular movements are intact. . Ears: External ears normal, canals clear. Neck: Supple, no adenopathy; thyroid symmetric, normal size, no bruits. Lungs: Lungs clear to auscultation. No wheezing, rhonchi, rales.. Heart: RRR without murmur, gallop, or rubs. No ectopy. Neurologic: Reflexes normal and symmetric. Sensation grossly intact.. No pronator drift, shoe salesman strength equal, hsyabz-od-[id number] to examine her finger normal, smile symmetrical, tongue is midline, speaking in full sentences without difficulty. Difficulty with Romberg, gait is abnormal, swaying. M/S: Upper extremity strength equal 5/5, lower extremity strength equal 5/5. ASSESSMENT/PLAN: 1. BPPV (benign paroxysmal positional vertigo), unspecified laterality - ICD9: 386.11, ICD10: H81.10 (primary diagnosis) -Symptoms are consistent with the BPPV. Trial increasing meclizine to 50 mg twice daily as needed. See physical therapy for vestibular treatment. Neurologic exam was mostly normal with exception of the patient's gait. I discussed with the patient that I believe this is BPPV and not strokelike symptoms. I discussed with him if he were to get worsening dizziness, slurred speech, unilateral weakness, develop a syncopal episode, chest pain, shortness of breath, confusion that he needs to go to the emergency room immediately. He verbalized understanding. - CONSULT TO PHYSICAL THERAPY - MECLIZINE 50 MG TABLET 2. Dizziness - ICD9: 780.4, ICD10: R42 - likely #1, check labs - THYROID STIMULATING HORMONE - COMPLETE BLOOD COUNT AND DIFFERENTIAL - COMPREHENSIVE METABOLIC PANEL - CONSULT TO PHYSICAL THERAPY 3. Essential hypertension - ICD9: 401.9, ICD10: I10 -Elevated today understandably so with be BPPV symptoms Micky Cabezas APRN.DIRECTOR HAIR RTO as scheduled in early May to follow-up on blood pressure Medical Decision Making: Problems: Moderate: Acute illness with systemic symptoms Data: Unique test(s) ordered: 3+ Risk: Moderate: Drug management Medical Decision Making Level: 4 - Moderate This note was partly generated using [employer] voice recognition dictation and may contain some misspelled or inaccurate words missed on review. documented in this encounterW[facility]08[facility] Telephone encounter Note * Telephone Encounter - Rama Calixto LPN - 04/11/2024 1:23 PM EDT Pt calls to report he has been having dizziness for the past couple of days. Pt reports if he turnshis head to fast he gets the spins. Pt also reports dizziness is causing him to feel nauseous andbalance is off when walking at time. Pt reports when he gets these sx usually he'll take meclizine, then fall asleep and when he wakes up he is better. Pt reports meclizine is not helping as much this time. Pt denies ARORA, SOB, facial drooping, one-sided weakness, trouble with speech. Appt scheduled for today. Rama Calixto LPN [facility] Miscellaneous Notes* Telephone Encounter - Rama Calixto LPN - 04/11/2024 1:23 PM EDT Pt calls to report he has been having dizziness for the past couple of days. Pt reports if he turnshis head to fast he gets the spins. Pt also reports dizziness is causing him to feel nauseous andbalance is off when walking at time. Pt reports when he gets these sx usually he'll take meclizine, then fall asleep and when he wakes up he is better. Pt reports meclizine is not helping as much this time. Pt denies ARORA, SOB, facial drooping, one-sided weakness, trouble with speech. Appt scheduled for today. Rama Calixto LPN documented in this [facility]07-[facility]24 Telephone encounter Note * Telephone Encounter - Kaushik Seals MD - 03/13/2024 1:46 PM EDT OK to refill as ordered Kaushik Seals MD [facility] Miscellaneous Notes* Telephone Encounter - Kaushik Seals MD - 03/13/2024 1:46 PM EDT OK to refill as ordered Kaushik Seals MD * Telephone Encounter - Raman Feldman RN - 03/13/2024 1:26 PM EDT Faxed recent ov notes to attn: Sharon [facility]. Sharon reports patient also needs order for lancets sent to [facility]. Pended. Last ov with pcp: 03-07-24 documented in this encounterW[facility]07-[facility]-2024 Telephone encounter Note * Telephone Encounter - Raman Feldman, JOSE - 03/13/2024 1:26 PM EDT Faxed recent ov notes to attn: Sharon [facility]. Sharon reports patient also needs order for lancets sent to [facility]. Pended. Last ov with pcp: 03-07-24 [facility] Telephone encounter Note* Telephone Encounter - Shaye Dobbins APRN.CNP - 03/13/2024 7:09 AM EDT The following approved medication requests have been transmitted electronically. Requested Prescriptions Signed Prescriptions Disp Refills Blood-Glucose Meter monitoring kit 1 Each 0 Sig: Glucose Meter of Choice - Kit - Dx: Type 2 DM - Uncontrolled E11.65 Authorizing Provider: SHAYE DOBBINS blood sugar diagnostic (BLOOD GLUCOSE TEST) test strip 50 Strip 11 Sig: Test blood sugar(s) 1 times daily. Dx: Type 2 DM - Uncontrolled E11.65 Insulin: No Authorizing Provider: SHAYE DOBBINS glimepiride (AMARYL) 4 mg tablet 30 tablet 11 Sig: Take 1 tablet by mouth daily with breakfast. Authorizing Provider: SHAYE DOBBINS APRN.CNP [facility] Miscellaneous Notes* Telephone Encounter - Shaye Dobbins APRN.CNP - 03/13/2024 7:09 AM EDT The following approved medication requests have been transmitted electronically. Requested Prescriptions Signed Prescriptions Disp Refills Blood-Glucose Meter monitoring kit 1 Each 0 Sig: Glucose Meter of Choice - Kit - Dx: Type 2 DM - Uncontrolled E11.65 Authorizing Provider: SHAYE DOBBINS blood sugar diagnostic (BLOOD GLUCOSE TEST) test strip 50 Strip 11 Sig: Test blood sugar(s) 1 times daily. Dx: Type 2 DM - Uncontrolled E11.65 Insulin: No Authorizing Provider: SHAYE DOBBINS glimepiride (AMARYL) 4 mg tablet 30 tablet 11 Sig: Take 1 tablet by mouth daily with breakfast. Authorizing Provider: SHAYE DOBBINS APRN.CNP * Telephone Encounter - Joslyn Saenz RN - 03/10/2024 2:50 PM EDT Patient returned call and given message below. 3 -month follow up appt made as advised. Patient uses [facility]. Also pt needs new glucometer. He misplaced his. Script pended. Thank you. * Telephone Encounter - Jasmin Arora LPN - 03/10/2024 1:29 PM EDT TC to Pt. Unable to LM due to the mailbox is full. Will try again later. Jasmin Arora LPN * Telephone Encounter - Shaye Dobbins APRN.CNP - 03/10/2024 1:05 PM EDT Can you please call the patient and let him know that I reviewed his lab results. Thyroid was normal, triglycerides were elevated, A1C went up from 5.9 to 8.6. I would recommend we increase the glimepiride and recheck labs in 3 months with office visit. I would like him to work oneating a low carb diet, decrease processed foods, increase lean protein, veggies, and get some formof exercise. I would like him to keep track of fasting sugars, call the office in 2 weeks with update. Please verify pharmacy and make 3 month follow up appt. Thank you. Shaye Dobbins APRN.DIRECTOR HAIR documented in this encounterW[facility]07-[facility]-2024 Telephone encounter Note * Telephone Encounter - Joslyn Saenz RN - 03/10/2024 2:50 PM EDT Patient returned call and given message below. 3 -month follow up appt made as advised. Patient uses [facility]. Also pt needs new glucometer. He misplaced his. Script pended. Thank you. [facility] Telephone encounter Note* Telephone Encounter - Jasmin Arora LPN - 03/10/2024 1:29 PM EDT TC to Pt. Unable to LM due to the mailbox is full. Will try again later. Jasmin Arora LPN [facility] Telephone encounter Note* Telephone Encounter - Shaye Dobbins APRN.DARNELL - 03/10/2024 1:05 PM EDT Can you please call the patient and let him know that I reviewed his lab results. Thyroid was normal, triglycerides were elevated, A1C went up from 5.9 to 8.6. I would recommend we increase the glimepiride and recheck labs in 3 months with office visit. I would like him to work oneating a low carb diet, decrease processed foods, increase lean protein, veggies, and get some formof exercise. I would like him to keep track of fasting sugars, call the office in 2 weeks with update. Please verify pharmacy and make 3 month follow up appt. Thank you. Shaye Dobbins APRN.DIRECTOR HAIR [facility]07-16-2024 History of Present illness Narrative* Kaushik Seals MD - 03/07/2024 4:20 PM EDT Chief Complaint Patient presents with: 6 Month Exam HPI Lucas Mccabe is a 58 year old male who presents here today for 6 month follow up. Has been working on his friend's truck. Living at a friend's house now. He was renting a trailer but it became too much, couldn't afford the rent. Smoking 1 ppd or less. Thinks about quitting. No bowel, Gi, or urinary issues. GERD: Controlled on Prilosec 40 mg daily. Lipid: Taking Lipitor 10 mg daily, tolerating well. Denies watching diet or exercising. HTN: Does not check BP at home, no chest pains, dizziness, or SOB. Taking Lisinopril 20 mg daily. DM: Denies checking BS at home. No hypoglycemic episodes. Neuropathy sx in both feet. Is on Amaryl 2 mg daily and Metformin 500 mg 2 pills daily. Depression: Stable on Cymbalta 60 mg BID. Behavioral Health Screening PHQ-2 Score: 0 (Lower risk for depression) JUAN-2 Score: 0 (Lower risk for anxiety) Recommendation: continuing current treatment plan Edema; B/l legs, controlled with Lasix 40 mg dialy. Thyroid: Taking Synthroid 300 mcg daily, misses some dosages. He states he has been a littler better about taking his medication. DVT/Factor V: Taking Eliquis 5 mg BID. Pain: Neuropathy and DDD. Stable on Celebrex 100 mg 1 pill BID, Cymbalta 60 mg 1 pill BID and Gabapentin 300 mg daily at bedtime. He bilateral knee, bilateral hip right hip worse. Complains of numbness and tingling to the fingers on left hand x 1.5 months. It is constant. None in right hand. He denies having trouble using the hand and finger. Still able to get things done. COPD/Asthma: Following with Pulm. Uses inhalers. Past medical history, appointments, medications, allergies reviewed. Previous Medical History PAST MEDICAL HISTORY Diagnosis Date Chronic pain Displacement of intervertebral disc, site unspecified, without myelopathy 05/06/2005 DVT (deep venous thrombosis) ([facility]) Esophageal reflux Factor V Leiden mutation ([facility]) Generalized osteoarthrosis, unspecified site Hypothyroidism Myalgia and myositis, unspecified Neuralgia, neuritis, and radiculitis, unspecified Obesity, unspecified LEONEL (obstructive sleep apnea) Pulmonary embolism ([facility]) 03/2020 Spondylosis of unspecified site without mention of myelopathy Thoracic or lumbosacral neuritis or radiculitis, unspecified 04/01/2005 Type 2 diabetes mellitus (HCC) Unspecified essential hypertension Previous Surgical History PAST SURGICAL HISTORY Procedure Laterality Date ARTHROSCOPY KNEE DIAGNOSTIC W/WO SYNOVIAL BX SPX 04/17/2003 Arthroscopy, knee, right knee COLONOSCOPY FLX DX W/COLLJ SPEC WHEN PFRMD 05/21/2014 Colonoscopy COLONOSCOPY FLX DX W/COLLJ SPEC WHEN PFRMD 05/27/15 Colonoscopy ESOPHAGOGASTRODUODENOSCOPY TRANSORAL DIAGNOSTIC 05/21/2014 EGD Family History FAMILY HISTORY Problem Relation Age of Onset Diabetes Mother Hypertension Mother Cancer Mother pancreas Lung Cancer Mother Heart Father COPD Sister other (breathing issues) Sister Factor 5 Leiden Sister Patient Allergies ALLERGIES Allergen Reactions Latex Intolerance Headache, dizzy, trouble breathing Zomig [Zolmitriptan] Mental Status Change Current Medications Current Outpatient Medications on File Prior to Visit Medication Sig guaiFENesin (MUCINEX) 600 mg 12 hr tablet Take 2 tablets by mouth two times a day as needed for cold/allergy symptoms. albuterol HFA (VENTOLIN HFA) 90 mcg/actuation inhaler INHALE 2 PUFFS ORALLY DIRECTED EVERY 4 HOURS NEEDED metFORMIN (GLUCOPHAGE) 500 mg tablet Take 2 tablets by mouth daily with breakfast. atorvastatin (LIPITOR) 10 mg tablet Take 1 tablet by mouth once daily. apixaban (ELIQUIS) 5 mg tab(s) Take 1 tablet by mouth two times a day. furosemide (LASIX) 40 mg tablet Take 1 tablet by mouth once daily. DULoxetine (CYMBALTA) 60 mg capsule Take 1 capsule by mouth two times a day. bbuijbrtfm-xkyzwkmo-cnaelliwim (BREZTRI AEROSPHERE) 160-9-4.8 mcg/actuation HFA aerosol inhaler Inhale 2 Puffs as instructed two times a day. gabapentin (NEURONTIN) 300 mg capsule Take 1 capsule by mouth daily at bedtime for 186 days. glimepiride (AMARYL) 2 mg tablet Take 1 tablet by mouth daily with breakfast. meclizine (ANTIVERT) 25 mg tab Take 1 tablet by mouth two times a day as needed (dizziness). lisinopril (ZESTRIL) 20 mg tablet Take 1 tablet by mouth once daily. celecoxib (CELEBREX) 100 mg capsule Take 1 capsule by mouth two times a day. omeprazole (PRILOSEC) 40 mg capsule Take 1 capsule by mouth once daily. levothyroxine (SYNTHROID) 300 mcg tablet Take 1 tablet by mouth once daily. Take on empty stomach. For Thyroid. Lancets lancets Test blood sugar(s) 1 times daily. Dx: Type 2 DM - Uncontrolled E11.65 Insulin: No blood sugar diagnostic (BLOOD GLUCOSE TEST) test strip Test blood sugar(s) 1 times daily. Dx: Type 2 DM - Uncontrolled E11.65 Insulin: No No current facility-administered medications on file prior to visit. Social History Social History Tobacco Use Smoking status: Every Day Packs/day: 2.00 Years: 43.00 Additional pack years: 0.00 Total pack years: 86.00 Types: Cigarettes, Cigars Start date: 08/23/1978 Smokeless tobacco: Former Tobacco comments: smokes Cigars blackand maloney and cigarettes 2 ppd smoker Vaping Use Vaping Use: Never used Substance Use Topics Alcohol use: Yes Comment: 6 pack per year Drug use: No EXAM: BP 138/80 Pulse 97 Resp 16 Wt (!) 140.5 kg (309 lb 12.8 oz) SpO2 93% BMI 42.02 kg/m General Appearance: Well appearing, alert, in no acute distress, well-hydrated, well nourished. andObese. Lungs: Lungs clear to auscultation. No wheezing, rhonchi, rales.. Heart: RRR without murmur, gallop, or rubs. No ectopy. Extremities: left hand; indicates tingling in 4-5th fingers, normal exam Health Maintenance List Alpha-1 Antitrypsin Deficiency Screening Never done Shingrix Vaccine(1 of 2) Never done Prostate Cancer Screening Discussion Never done Dilated Retinal Exam due on 08/09/2019 Urine Albumin:Creatinine Ratio due on 09/20/2019 Diabetic Foot Exam due on 01/05/2020 BP Controlled (<130/80) due on 01/05/2020 Colorectal Cancer Screening due on 05/27/2020 Lung Cancer Screening due on 12/16/2022 Behavioral Health Screening Never done RSV Vaccine(1 - 1-dose 60+ series) Never done HbA1C due on 03/07/2024 Covid-19 Vaccine( - 2022- season) due on 09/07/2024 Influenza Vaccine(1) due on 04/23/2024 LDL Cholesterol due on 09/07/2024 Annual PCP Team Chronic Disease Visit due on 09/07/2024 DTaP,Tdap,Td Vaccine(2 - Td or Tdap) due on 07/10/2029 Spirometry Completed Hepatitis C Screening Completed Pneumococcal Vaccine Completed HIV Screening Discontinued Data reviewed None ASSESSMENT/PLAN: 1. Type 2 diabetes, controlled, with neuropathy (HCC) - ICD9: 250.60, 357.2, ICD10: E11.40 (primarydiagnosis) - Control undetermined, due for labs - Continue current medications - Counseled on healthy diet and regular exercise - Discussed need for and benefit of weight loss. BMI 42.02 kg/(m^2) 2. Essential hypertension - ICD9: 401.9, ICD10: I10 - Controlled - Continue current medications - Recommend home blood pressure monitoring, to bring results to next visit - Encouraged sodium restriction, DASH or Mediterranean diet - Recommend regular aerobic exercise - Discussed need for and benefit of weight loss. BMI 42.02 kg/(m^2) 3. Chronic pain syndrome - ICD9: 338.4, ICD10: G89.4 Continue current medications. 4. Chronic pulmonary embolism without acute cor pulmonale, unspecified pulmonary embolism type (HCC) - ICD9: 416.2, ICD10: I27.82 Stable Continue current medications. 5. Obstructive sleep apnea - ICD9: 327.23, ICD10: G47.33 6. Tobacco use disorder - ICD9: 305.1, ICD10: F17.200 - Cessation encouraged. - Physiologic and physical aspects of tobacco addiction as well as strategies for quitting were discussed. - Counseling was given focusing on the harmful effects of this addiction especially given the patient's medical condition(s) which will be worsened because of the chemicals in tobacco. - Counseling was given 7. Gastroesophageal reflux disease, unspecified whether esophagitis present - ICD9: 530.81, ICD10: K21.9 Controlled Continue current medications. 8. Acquired hypothyroidism - ICD9: 244.9, ICD10: E03.9 - Instructed patient on importance of taking on an empty stomach either first thing in the morning or at bedtime. Continue current medications. 9. Obesity, Class II, BMI 35-39.9 - ICD9: 278.00, ICD10: E66.9 Recommend healthy diet and exercise 10. Finger numbness - ICD9: 782.0, ICD10: R20.0 Continue to monitor Follow up in 6 months. Will notify of lab results I agree with the Chief Complaint, ROS, and Past Histories independently gathered by the clinical technical support analyst and the remaining scribed note accurately describes my personal service to the patient. Medical Decision Making: Problems: Moderate: 2+ stable chronic illnesses Data: Unique test(s) ordered: 3+ Risk: Moderate: Drug management Medical Decision Making Level: 4 - Moderate Kaushik Seals MD The documentation for this note was completed by Vanessa Capone MA acting as scribe for Kaushik Seals MD. March 07, 2024 4:05 PM. Vanessa Capone MA documented in this encounterW[facility]11-21-2023 Miscellaneous Notes* Telephone Encounter - Amy Lewis RN - 07/13/2023 8:36 AM EST GoLytely sent to pharmacy on 07/08/2023. Patient aware. Amy Lewis RN * Telephone Encounter - Amy Lewis RN - 07/07/2023 3:22 PM EST Lucas is scheduled for his colonoscopy on 07/19/2023. During his pre-procedure examination, he was told he would be given Miralax/Dulcolax prep. When he was with the [facility] nurse practitioner today, he advised that I cannot pay for any medications, they have to be prescription, so my insurance pays for them, I do not have any money. Could you please review the chart and advised if the patient could have the GoLytely prep sent to his pharmacy or if the Miralax/Dulcolax prep could be sent via the pharmacy to see if his insurance would cover them? The BUILDING PRINCIPAL, from [facility], provided the patient with the directions for both prep options, the office needsto let the patient know what he needs to picking crew supervisor and which prep he needs to follow. Amy Lewis RN documented in this encounterW[facility]oster [facility]11-20-2023 Miscellaneous Notes* Telephone Encounter - AvinashFeliciano - 07/12/2023 1:38 PM EST Images from the original note were not included. Contacted patient for pre-op GI phone call via either phone and or [email or web address]. Patient understands prep instructions, sent either Mychart and/or Mail. Understands where to report on the day of procedure. All questions answered and or sent to providers office for clarification. Patient understands [employer] arrival time could change and wait for their arrival time call from the facility the day before procedure.Patient understands must have a dairy truck driver and or responsible republican present. Patient was givendirect phone number to call ( [phone]) if patient has any further questions or given the option to respond to [employer] message If one was sent (please see below for [employer] message). Please see the prep instructions below. The first set of instructions are over the counter medications that you may picking crew supervisor at any pharmacy. The second set of instructions is by prescription only and will need to be picked up at your pharmacy you provided to your health care team. If you have any questions please contact the surgical services tech at [phone] or respond to this [employer] message. . Thank you, Feliciano Miralax/Dulcolax Bowel Prep For this bowel preparation you will need to picking crew supervisor the following medications at any pharmacy. Four (4) Dulcolax tablets (generic name Bisacodyl) Please make sure you purchase the Laxative NOT stool Softer. 238 Gram (or 8.3 oz.) Bottle of Miralax (Generic name Polyethylene Glycol) 3 days prior to your procedure, DO NOT EAT HIGH FIBER FOODS Such as popcorn, beans, seeds, nuts, salad and raw veggies, corn, fresh and dried fruit and multi-grain breads. Foods that are good to eat several days before your procedure include but not limited too Lean Chicken breast, fish, Eggs, Soup's YOU MUST BE ON CLEAR LIQUIDS FOR 2 FULL DAYS PRIOR TO PROCEDURE DAY 1 (2 days before your colonoscopy) Clear Liquids all day, you may have water, coffee or tea- NO DAIRY, Clear broth (Beef, Chicken or vegetable) Clear carbonated beverages, apple juice, white grape juice , Gatorade, Jell-O, Sy-Aid, Gummy Bears, and popsicles. NO DAIRY, TOMATO, OR ORANGE JUICE. NO RED OR PURPLE! DAY 2 - (day before your colonoscopy) SAME DAY 1, Continue clear fluids and then follow the instructions below~ 8:00 AM - Mix the Miralax prep with 64 oz. of Gatorade or any of the clear fluids listed above and place in fridge. 1:00 PM - Take 2 Dulcolax Tablets with 8oz of water 3:00 PM - Start to drink the Miralax mixture. - Finish by midnight 4:00 PM - Take 2 Dulcolax tablets with 8oz of water. You may continue to drink clear liquids while you are taking your prep and after you finish as longas it is before midnight. Drink lots of fluids so you don't become dehydrated. Nothing to drink after midnight unless instructed otherwise by nursing staff and/or physician. Please remember to take your normal medications the morning of your procedure with a small sip of water especially your blood pressure medications. If you are diabetic, you need to contact your physiciansregarding how to take your diabetic medications and/or insulin during the prepping period and the day of the procedure. Please see the below Milli instructions. How to prepare for your Colonoscopy using Golytley Your bowel must be empty so that your doctor can clearly view your colon. DO NOT eat any solid food the ENTIRE DAY before your colonoscopy DO NOT MIX the solution until the day before your colonoscopy. The prep is only good for 24 hrs. after it has been mixed A responsible family member or friend MUST come with you to your colonoscopy and REMAIN in the endoscopy area until you are discharged. You are NOT ALLOWED to drive, take a taxi, or leave the Endoscopy Center ALONE. If you do NOT have a responsible dairy truck driver (family member or friend) to take you home,your exam cannot be done with sedation and WILL BE cancelled. Please remove all jewelry if possible. Medication Some of the medication may need to be stopped or adjusted before your colonoscopy. Blood thinners -Such as Coumadin, Plavix, Pradaxa and Eliquis. Please contact your physician's office to see if youneed to hold this medication prior to your procedure. Insulin or diabetes pills -Please call the doctor that monitors your glucose levels. Your insulin dosage needs to be adjusted due to the diet restrictions required with this bowl preparation. If you take aspirin, take it and ALL other medication prescribed by your doctor. You may take over the counter medications if you have a headache. Please take ALL mediations directed by the ordering physician. Please do not have anything to drinkafter midnight including water the night before the procedure unless you need to take a sip of water with your morning medications. Five (5) days before your colonoscopy Do not take medications that stop Diarrhea - Imodium, Kaopectate, or Pepto Bismol Do NOT take fiber supplements - Metamucil, Citrucel, FiberCon Do NOT take products that contain iron (check vitamin label) Do NOT take vitamin E. Two (2) to three (3) days before your colonoscopy DO NOT EAT HIGH FIBER FOODS No beans, seeds (flax, sunflower, quinoa), nuts, popcorn, multigrain bread salad/vegetables, or fresh and dried fruit. YOU MAY EAT Lean Chicken breast, fish, eggs, and soup One (1) Day before your colonoscopy ONLY DRINK CLEAR LIQUIDS the ENTIRE DAY BEFORE YOUR COLONOSCOPY. DO NOT EAT ANY SOLID FOODS. Drink at least eight (8) ounces of clear liquids every hour after waking up. Clear fluids include: Water, apple juice, white grape juice, broth (beef, chicken or vegetable), coffee and/or tea (NO DAIRY, MILK OR CREAMER) clear carbonated beverages (sprite, 7-up, jus-marisela), Gatorade, or other sport drinks, Sy-Aid, Jell-O Gummy Bears and popsicles. NOTHING RED IN COLOR. DO NOT DRINK ALCOHOL the day before or the day of your procedure. Preparing Bowel Prep Follow the instructions on the label. After mixing (warm water so the powder will dissolve), place the solution in the refrigerator. You may either add the flavor packet that comes with the bowel solution or you may use your own (Crystal Light, Sy-Aid, Arevalo, Country Time Lemonade, or any powder flavor that you may mix with water; NOTHING RED). If you use your own flavor, please add flavor glassby glass. You do not want to mix your own flavor in the container as you may over flavor the prep. If you add glass by glass you may also switch flavors during the consumption of your bowel prep. Day Before Your Colonoscopy You may start your bowel prep any time after 1:00 PM before 6:00 PM. Alternate between your bowel prep and clear liquids. You MUST drink the bowel prep until your bowels are COMPLETELY CLEAR (may have a yellowish tint). Please try to drink all of the prep to ensure you are completely cleaned out. If you are unsure if you're Clear , please continue to drink till the bowel prep is gone for best results. Failure to have clear stools may lead to cancellation of your procedure. documented in this encounterW[facility]11-16-2023 Miscellaneous Notes* Telephone Encounter - Marsha Shay LPN - 07/08/2023 2:31 PM EST Called and updated patient. Marsha Shay LPN * Telephone Encounter - Armin Siddiqui MD - 07/08/2023 2:02 PM EST Golytely sent. Please have him drink the night before the procedure until clear documented in this encounterWooster [facility] Hospital11-15-2023 Instructions* Patient Instructions* Josefina Carrillo, CONSTANTINO.DIRECTOR HAIR - 07/07/2023 2:26 PM EST PATIENT PREOPERATIVE INSTRUCTIONS Armin Sididqui MD has scheduled you for your procedure at this surgery center: [facility]: [phone] -- [address] [address]. Please read below carefully for your personalized instructions. Dietary Restrictions: - Follow bowel prep instructions: clear liquids need to be stopped 2 hours prior to schedule arrival at facility Medications: Unless instructed differently below, stay on all of your medications until your surgery. If you start any new medications after today's visit, please contact your surgeon. Pre-Surgery Med Instructions Medication Instructions omeprazole (PRILOSEC) 40 mg capsule Take the day of surgery with a small sip of water levothyroxine (SYNTHROID) 300 mcg tablet Take the day of surgery with a small sip of water apixaban (ELIQUIS) 5 mg tab(s) Take the day of surgery with a small sip of water furosemide (LASIX) 40 mg tablet Do not take the day of surgery guaiFENesin (MUCINEX) 600 mg 12 hr tablet IF needed atorvastatin (LIPITOR) 10 mg tablet Take the day of surgery with a small sip of water metFORMIN (GLUCOPHAGE) 500 mg tablet Do not take the day of surgery albuterol HFA (VENTOLIN HFA) 90 mcg/actuation inhaler Take the day of surgery with a small sip of water DULoxetine (CYMBALTA) 60 mg capsule Take the day of surgery with a small sip of water webndfzfxt-waikbdks-kgkkmvjtoj (BREZTRI AEROSPHERE) 160-9-4.8 mcg/actuation HFA aerosol inhaler Take the day of surgery with a small sip of water gabapentin (NEURONTIN) 300 mg capsule Take the day of surgery with a small sip of water glimepiride (AMARYL) 2 mg tablet Do not take the day of surgery meclizine (ANTIVERT) 25 mg tab If NEEDED lisinopril (ZESTRIL, PRINIVIL) 20 mg tablet Do not take the day of surgery celecoxib (CELEBREX) 100 mg capsule Do not take the day of surgery Lancets lancets blood sugar diagnostic (BLOOD GLUCOSE TEST) test strip If you take any medications for erectile dysfunction-Cialis (Tadalafil), Levitra, Staxyn (Vardenafil) Viagra (Sildenenafil please do not take these for 48 hours before surgery. If you start any new medications after today's visit, please contact the surgeon's office. Blood Thinning Medications: - Stop Vitamin E, ALL multi-vitamins, herbals and dietary supplements 7 days before surgery. - You may take Tylenol (Acetaminophen) or any of your pain medications that do not contain aspirin or NSAIDS as needed. Important Reminders: - Candy, mints, and tobacco products are NOT permitted the morning of surgery. - Hearing aids, dentures and glasses may be worn the morning of surgery. - NO jewelry, body piercings, makeup, hairpins or contacts are to be worn the day of surgery. If you develop symptoms such as a fever, cold, or flu, or have other changes to your health within TWO DAYS of scheduled surgery or the morning of surgery, please contact the surgery center above. Personal Belongings: -Please have photo ID and insurance cards. -If you do not have a copy of advance directives on file with us, please bring a copy with you on the day of surgery. - Leave ALL valuables and money at home or with family members. For Outpatient Procedures: - YOU MUST HAVE A RESPONSIBLE REAL ESTATE PARALEGAL TAKE YOU HOME. A PHYSICAL THERAPY ATTENDANT OR SUPERVISOR BLUEPRINTING AND PHOTOCOPY CANNOT BE MADE A RESPONSIBLE REAL ESTATE PARALEGAL. - We recommend that a responsible person stays with you overnight to take care of you. - You cannot stay in a hotel alone after outpatient surgery. You will not be permitted to have yoursurgery, if you do not have someone to take care of you. Arrival Time for Surgery: - The Surgery Center or hospital where you are having surgery will call the afternoon before surgery (or Wednesday for Wednesday surgery) with a scheduled arrival time. - If you have not heard by 4 pm, please contact the surgery center above. Please be aware that emergency situations arise, which may delay or change your surgical time. If this happens, we will notify you as soon as possible and regret any inconvenience. If you already have an Advance Directive, please fax a copy to [phone] or email to for it to be added to your chart. If you do not have an Advance Directive, you can find the appropriate form and more information at [email or web address]. We recommend that youcomplete the Advance Directive form found on the website and bring it with you the day of your surgery. It can be witnessed and scanned into your chart that day. Josefina Carrillo APRN.DARNELL documented in this encounterWooster [facility] Hospital11-15-2023 History and physical note * Josefina Carrillo APRN.CNP - 07/07/2023 2:21 PM EST HISTORY AND PHYSICAL EXAMINATION SERVICE DATE: 07/07/2023 SERVICE TIME: 1:02 PM PRIMARY CARE PHYSICIAN: Kaushik Seals MD Assessment Patient has the following medical conditions which may affect peewee-operative course: Acquired hypothyroidism Assessment: stable on rx Asthma Assessment: controlled on rx and as needed, following pulmonary Essential hypertension Assessment: controlled on rx Last 14 BP Last 14 Encounter BP Readings: Date: BP: 07/07/2023 138/80 03/09/2023 142/80 03/05/2023 150/80 12/23/2022 141/86 09/05/2022 116/80 12/02/2021 148/92 04/04/2021 122/74 02/19/2021 128/80 02/08/2021 122/64 10/15/2020 138/86 09/20/2020 160/90 04/23/2020 138/74 03/27/2020 142/72 10/06/2019 134/80 Factor V Leiden (HCC) Assessment: hx chronic PE, chronic AC therapy, no need to hold AC per surgeon's office preference for colonsocopy Obesity, Class II, BMI 35-39.9 Assessment: Body mass index is 39.6 kg/m . Obstructive sleep apnea Assessment: non-compliant with CPAP Type 2 diabetes, controlled, with neuropathy (HCC) Assessment: controlled on oral agents, neuropathy controlled with gabapentin Hemoglobin A1C (%) Date Value 03/05/2023 6.0 01/31/2021 11.9 Venous insufficiency Assessment: on rx Pulmonary emphysema (HCC) Assessment: controlled on rx and as needed, following pulmonary, oxygen as needed 12/23/2022 Dr. Payne ASSESSMENT and RECOMMENDATIONS: 1. Screening for lung cancer: Encounter for screening for malignant neoplasm of lung - ICD9: V76.0, ICD10: Z12.2 (primary diagnosis) I have determined that the patient is eligible for a low dose CT based on age, absence of signs or symptoms of lung cancer, and total pack years: No. Not eligible given recent CTA chest PE done 11/19/22 at [place] [facility] The patient and I engaged in shared decision making, including the use of one or more decision aids, to include benefits, harms, follow-up diagnostic testing, over-diagnosis, false positive rate, andtotal radiation exposure. The patient understands and feels comfortable with it: No. The patient was counseled on the importance of adherence to annual LDCT lung cancer screening, impact of comorbidities and ability or willingness to undergo diagnosis and treatment. The patient understands and feels comfortable with it:No. 2. Smoker - ICD9: 305.1, ICD10: F17.200 Nicotine dependence: The patient was counseled on the importance of smoking cessation if current smoker and, if appropriate, offered additional tobacco cessation counseling services - Smoking Cessation Counseling. SMOKING CESSATION COUNSELING Smoking cessation methods including Nicotine Replacement Therapies and Behavior Modification were discussed with the patient and assistance offered. The medical conditions adversely affected by cigarette use include:Emphysema and COPD/Asthma . 3. Asthma with chronic obstructive pulmonary disease (COPD) (HCC) - ICD9: 493.20, ICD10: J44.9 -Continue Breztri HFA daily. Rinse/gargle mouth after each use to prevent oral thrush. - Continue Albuterol HFA inhaler, 2 inhalations 10-15 minutes prior to activities associated with shortness of breath, and as needed for rescue relief of shortness of breath, cough or wheezing, up to4 times daily as needed. - Start Mucinex 600 mg twice daily for 2 weeks then as needed to facilitate mucus clearance - Advised follow up with pulmonology, has missed follow up, followed with PCP 4. Lung nodules - ICD9: 793.19, ICD10: R91.8 MELANI nodules < 5 mm noted on last Ldct scan 11/2021, in the interval completed CTA chest PE done [place], will retrieve images. Tobacco Use Disorder Assessment: 1-2ppd/30+ years Embolism and thrombosis (HCC) Assessment: daily Eliquis, 2/2 Factor V Leiden, no need to hold for upcoming procedure per surgeon's office preference ESOPHAGEAL REFLUX Assessment: controlled on rx Family history of malignant hypertension Assessment: email to ME manager dish and anethesia, pt already scheduled to be first pt of the day. Pt states cousin with reaction. Velasquez Activity Status Index: METS: Climb a flight of stairs or walk up a hill (5.50 METs) DASI Score: 5.5 Patient denies any chest pain or undue shortness of breath with the above physical activity. Clinical Frailty Scale: 3. Well, with treated comorbid disease STOP-Bang Score: Snores loudly Often feels tired, fatigued, or sleepy during the daytime Has been observed to stop breathing or choking/gasping during sleep Has or is being treated for high blood pressure BMI greater than 35 kg/m^2 Patient over 50 years old Has a large neck Male patient STOP-Bang Score: 8 [id number] Score: Age: <65 Sex: male CHF history: No Hypertension history: Yes Stroke/TIA/thromboembolism history: No Vascular disease history: Yes Diabetes history: Yes [id number] Score: 3 ARISCAT Score: Age: 51-80 Preoperative SpO2: 91-95% Respiratory infection in the last month: No Preoperative anemia: Yes Surgical incision: peripheral Duration of surgery: <2 hrs Emergency procedure: No ARISCAT Score: 22 ANESTHESIA FINDINGS: Intubation History: No history of difficult intubation Significant Anesthesia Considerations: patient or family history of malignant hyperthermia Airway History: No history of difficult airway I - PHYSICAL EVALUATION AIRWAY Patient intubated: No. Tracheostomy tube not present Mallampati: IV. TM distance: >3 FB. Neck ROM: full ROM without neurological symptoms. Mouth opening: adequate. Short neck: no. Thick neck: no Pires present: yes Lip Bite Test: I Microretrognathia/Micronagthia/Recessed Chin: No DENTAL Dentures, upper: complete. Dentures, lower: partial. II - ANESTHESIA PLAN Anesthetic Plan: other Beta Harsha Monitoring Plan Post Procedure Analgesic Plan Informed Consent Anesthetic risks, benefits, alternatives, personnel and consent discussed: yes. Patient / Responsible Alliance Party agrees to proceed: yes Patient / Surrogate agrees to blood products: blood products not planned Discussed the possibility of lip / dental damage: yes REASON FOR VISIT: Lucas Mccabe is a 58 year old male who is scheduled for * No surgery found *at the request of Dr. Armin Siddiqui for consultation. My final recommendation will be communicated back to the requesting physician by way of shared medical record or letter. Subjective The patient has the following: ACTIVE PROBLEM LIST Thoracic Or Lumbosacral Neuritis Or Radiculitis, Unspecified Displacement of Intervertebral Disc, Site Unspecified, Without Myelopathy Pmh - Past Medical History of Spondylosis of Unspecified Site Without Mention of Myelopathy Myalgia and Myositis, Unspecified Neuralgia, Neuritis, and Radiculitis, Unspecified Embolism and Thrombosis (Hcc) Generalized Osteoarthrosis, Unspecified Site Esophageal Reflux Essential Hypertension Spinal Stenosis, Lumbar Region, Without Neurogenic Claudication Primary Hypercoagulable State (Hcc) Tobacco Use Disorder Other Acquired Deformity of Toe Pain in Limb Dermatophytosis of Nail Corns and Callosities Venous Insufficiency Pain in Joint, Shoulder Region Chronic Pain Lumbar Disc Displacement Without Myelopathy Ddd (Degenerative Disc Disease), Lumbar Asthma Type 2 Diabetes, Controlled, With Neuropathy (Hcc) Essential Hypertension With Goal Blood Pressure Less Than 140/90 Acquired Hypothyroidism Obstructive Sleep Apnea Factor V Leiden (Hcc) Chronic Pulmonary Embolism Without Acute Cor Pulmonale (Hcc) Requires Continuous At Home Supplemental Oxygen Pulmonary Emphysema (Hcc) Obesity, Class II, Bmi 35-39.9 Family History of Malignant Hypertension COVID-19 Immunization Status Postponed - Covid-19 Vaccine (1) Postponed until 09/05/2023 09/05/2022 Postponed until 09/05/2023 by Joaquina Peña Ma (Declined at this time) CHIEF COMPLAINT: Pre-op exam HPI: Lucas Mccabe is a 58 year old seen for PAC due to scheduled above procedure for colon cancer screening. 03/08/2023, Anh Quezada PA-C HPI: The patient is a 58 year old male referred for endoscopy. Lucas notes no colon complaints. Patient denies any change in bowel habits, weight changes, blood in stools, black tarry stools or abdominal pain. Denies family history of colon issues. The patient notes no upper GI complaints. Lucas has undergone prior endoscopy. Last colonoscopy 05/27/[address] Glasgow with piecemeal removal of a sigmoid colon polyp which returned as hyperplastic tissue. Bowel prep was found to adequate at that time. Patient's medical history is significant for Factor V Leiden mutation with multiple DVTs and PEs, per patient last clot was around a year ago. He is maintained on long-term oral anticoagulation. Patient also has obstructive sleep apnea, COPD, has home oxygen but notes is not always compliant with using this or with taking medications prescribed for his diabetes mellitus. Notes chronic shortness of breath with his COPD. Patient follows with Dr. Seals in primary care for his chronic medical issues. Patient is a current everyday smoker, approximately 2 packs per day. REVIEW OF SYSTEMS: General: No weight loss, malaise or fevers. Neurological: No history of TIA's, stroke, POLICE OFFICER tumor, impaired sensorium, hemiplegia, paraplegia orquadraplegia. No neurological symptoms or problems. Respiratory: Positive for: asthma (on rx), COPD (on rx), home oxygen (during the night if he remembers), tobaccouse (1-2ppd), obstructive sleep apnea and CPAP/BiPAP noncompliant. Patient is on 2L liter(s) of home O2. Negative for: pneumonia within 6 weeks and URI < 2 weeks. Cardiovascular: Positive for: anticoagulation therapy, DVT/PE, hyperlipidemia and hypertension Negative for: arrhythmia, atrial fibrillation, CAD, chest pain, CHF, congenital heart defect, recent SC, murmur/valvular heart disease, open heart surgery and valve surgery. GI: Positive for: GERD (on rx) and history of polyps Negative for: abdominal pain, dysphagia, hepatitis, irritable bowel syndrome, inflammatory bowel disease, liver disease, nausea, pancreatitis, vomiting and ETOH >2 drinks/day. : No history of dysuria, frequency or incontinence, stones or chronic kidney disease. No difficulty urinating, nocturia > 1 time per night or hematuria. Endocrine: Positive for: diabetes mellitus and hypothyroidism (on rx). Patient's diabetes mellitus is controlled by oral agents. Hematology: Positive for: factor V Leiden and chronic anti-coagulation/platelet meds. Patient is on anti-coagulation/platelet medication(s): DOAC. Negative for: anemia, bruises/bleeds easily and transfusion of at least 4 units within 72 hours prior to surgery. Oncology: No history of CA metastasis, chemo within 30 days, or radiotherapy within 90 days. No history of oncological symptoms or problems. Psych: Positive for: anxiety and depression. Musculoskeletal: Positive for: back pain. Skin: Negative for lesions, rash and itching. PAST MEDICAL HISTORY Diagnosis Date Chronic pain Displacement of intervertebral disc, site unspecified, without myelopathy 05/06/2005 DVT (deep venous thrombosis) (HCC) Esophageal reflux Factor V Leiden mutation (HCC) Generalized osteoarthrosis, unspecified site Hypothyroidism Myalgia and myositis, unspecified Neuralgia, neuritis, and radiculitis, unspecified Obesity, unspecified LEONEL (obstructive sleep apnea) Pulmonary embolism (HCC) 03/2020 Spondylosis of unspecified site without mention of myelopathy Thoracic or lumbosacral neuritis or radiculitis, unspecified 04/01/2005 Type 2 diabetes mellitus (HCC) Unspecified essential hypertension PAST SURGICAL HISTORY Procedure Laterality Date ARTHROSCOPY KNEE DIAGNOSTIC W/WO SYNOVIAL BX SPX 04/17/2003 Arthroscopy, knee, right knee COLONOSCOPY FLX DX W/COLLJ SPEC WHEN PFRMD 05/21/2014 Colonoscopy COLONOSCOPY FLX DX W/COLLJ SPEC WHEN PFRMD 05/27/15 Colonoscopy ESOPHAGOGASTRODUODENOSCOPY TRANSORAL DIAGNOSTIC 05/21/2014 EGD FAMILY HISTORY Problem Relation Age of Onset Diabetes Mother Hypertension Mother Cancer Mother pancreas Lung Cancer Mother Heart Father COPD Sister other (breathing issues) Sister Factor 5 Leiden Sister Social History Tobacco Use Smoking status: Every Day Packs/day: 2.00 Years: 43.00 Additional pack years: 0.00 Total pack years: 86.00 Types: Cigarettes, Cigars Start date: 08/23/1978 Smokeless tobacco: Former Tobacco comments: smokes Cigars blackand maloney and cigarettes 2 ppd smoker Vaping Use Vaping Use: Never used Substance Use Topics Alcohol use: Yes Comment: 6 pack per year Drug use: No Prior to Admission medications as of 07/09/23 1153 Medication Sig Last Dose Taking omeprazole (PRILOSEC) 40 mg capsule Take 1 capsule by mouth once daily. Taking Yes levothyroxine (SYNTHROID) 300 mcg tablet Take 1 tablet by mouth once daily. Take on empty stomach. For Thyroid. Taking Yes apixaban (ELIQUIS) 5 mg tab(s) Take 1 tablet by mouth twice daily. Taking Yes furosemide (LASIX) 40 mg tablet Take 1 tablet by mouth once daily. Taking Yes guaiFENesin (MUCINEX) 600 mg 12 hr tablet Take 2 tablets by mouth twice daily as needed for cold/allergy symptoms. Taking Yes atorvastatin (LIPITOR) 10 mg tablet Take 1 tablet by mouth once daily. Taking Yes metFORMIN (GLUCOPHAGE) 500 mg tablet Take 2 tablets by mouth daily with breakfast. Taking Yes albuterol HFA (VENTOLIN HFA) 90 mcg/actuation inhaler INHALE 2 PUFFS ORALLY DIRECTED EVERY 4 HOURS NEEDED Taking Yes DULoxetine (CYMBALTA) 60 mg capsule Take 1 capsule by mouth twice daily. Taking Yes pzwldvubps-jpjuutkf-qduqrjyziq (BREZTRI AEROSPHERE) 160-9-4.8 mcg/actuation HFA aerosol inhaler Inhale 2 Puffs as instructed twice daily. Taking Yes gabapentin (NEURONTIN) 300 mg capsule Take 1 capsule by mouth daily at bedtime for 186 days. Yes glimepiride (AMARYL) 2 mg tablet Take 1 tablet by mouth daily with breakfast. Taking Yes meclizine (ANTIVERT) 25 mg tab Take 1 tablet by mouth twice daily as needed (dizziness). Taking Yes lisinopril (ZESTRIL, PRINIVIL) 20 mg tablet Take 1 tablet by mouth once daily. Taking Yes celecoxib (CELEBREX) 100 mg capsule Take 1 capsule by mouth twice daily. Taking Yes Lancets lancets Test blood sugar(s) 1 times daily. Dx: Type 2 DM - Uncontrolled E11.65 Insulin: No Taking Yes blood sugar diagnostic (BLOOD GLUCOSE TEST) test strip Test blood sugar(s) 1 times daily. Dx: Type 2 DM - Uncontrolled E11.65 Insulin: No Taking Yes Medication Comments documented by Tigist Walker APRN.CNP on 07/06/2012 at 0852. [facility] for medications ALLERGIES Allergen Reactions Latex Intolerance Headache, dizzy, trouble breathing Zomig [Zolmitriptan] Mental Status Change Objective PHYSICAL EXAM: General: alert and oriented (x3), healthy appearance and obese. Pertinent negatives noted - not distressed. Skin: normal color, no rash or lesions. HEENT: EOM intact and pupils equal round. Pertinent negatives noted - no carotid bruit. Cardiovascular: regular rate and rhythm, normal S1 and S2, no rub, murmurs, or gallop. Respiratory: normal breath sounds, no wheezes or crackles. No chest wall deformity or tenderness. Abdomen: soft. Pertinent negatives noted - not tender. Extremities: no deformity, no edema or tenderness, no joint swelling or clubbing. Neurological: normal cognition and motor skills. Gait normal. No weakness or sensory deficit. PAIN ASSESSMENT: VITALS: BP 138/80 Pulse 74 Temp (Src) 98.3 (Temporal) Resp 20 Ht 6' 0 (1.83m) Wt 292 lb (132.5kg) SpO2 93% BMI 39.59 kg/(m^2). Diagnostic tests reviewed for today's visit: Lab Value Units Date High Low HB 16.9 g/dL 03/05/2023 17.0 13.0 HCT 52.3 % 03/05/2023 51.0 39.0 WBC 9.79 k/uL 03/05/2023 11.00 3.70 PLT 278 k/uL 03/05/2023 400 150 NA 139 mmol/L 03/05/2023 144 136 K 4.4 mmol/L 03/05/2023 5.1 3.7 GLUC 154 mg/dL 03/05/2023 99 74 BUN 22 mg/dL 03/05/2023 24 9 CREAT 0.84 mg/dL 03/05/2023 1.22 0.73 PTSEC No results within date range. INR No results within date range. APTT No results within date range. ALT 15 U/L 03/05/2023 54 10 AST 15 U/L 03/05/2023 40 14 TBILI 0.2 mg/dL 03/05/2023 1.3 0.2 TSH 33.000 mIU/L 03/05/2023 4.200 0.270 Lab Value Units Date High Low HCGQT No results within date range. UHCG No results within date range. HCG, BODY* No results within date range. Lab Value Units Date High Low ABORHD No results within date range. ABSCREEN No results within date range. Hemoglobin A1C (%) Date Value 03/05/2023 6.0 09/05/2022 6.5 01/31/2021 11.9 09/20/2020 8.9 07/17/2019 6.8 01/02/2019 7.1 09/20/2018 7.3 No results found for this or any previous visit (from the past 8760 hour(s)). No results found for this or any previous visit (from the past 83975 hour(s)). Prepared for Surgery: optimally prepared for surgery. CONSULTS: Patient does not require consults for optimization at this time Planned Anesthetic: other anesthesia choice The Following Tests/Procedures Have Been Initiated: No orders of the defined types were placed in this encounter. Instructions Given to Patient: Instructions located in the after visit summary. Patient given verbal and written preop instructions and voices comprehension and compliance. SIGNATURE: Josefina Carrillo APRN.CNP PATIENT NAME: Lucas Mccabe DATE: July 07, 2023 TIME: 2:21 PM PAGER/CONTACT #: [facility] Miscellaneous Notes* Telephone Encounter - Karen Lara RN - 03/10/2023 10:46 AM EDT Patient notified of results and provider's instructions. Patient verbalizes understanding. Karen Lara RN * Telephone Encounter - Jasmin Arora LPN - 03/10/2023 9:08 AM EDT No phone or My Chart available. Jasmin Arora LPN * Telephone Encounter - Kaushik Seals MD - 03/09/2023 4:56 PM EDT Please notify patient that his lab results look good, except that his thyroid test is still showingthat his dose of thyroid medicine is too low. I would like to increase him to 300 mcg daily of thyroid medicine. Follow up in 6 months as planned Kaushik Seals MD documented in [facility] History of Present illness Narrative* Anh Quezada PA-C - 03/09/2023 1:14 PM EDT HISTORY AND PHYSICAL Lucas Mccabe 1965 REFERRING PHYSICIAN: Kaushik Seals MD CHIEF COMPLAINT: Consult (Colonoscopy consult. ) HPI: The patient is a 58 year old male referred for endoscopy. Lucas notes no colon complaints. Patient denies any change in bowel habits, weight changes, blood in stools, black tarry stools or abdominal pain. Denies family history of colon issues. The patient notes no upper GI complaints. Lucas has undergone prior endoscopy. Last colonoscopy 05/27/[address] Glasgow with piecemeal removal of a sigmoid colon polyp which returned as hyperplastic tissue. Bowel prep was found to adequate at that time. Patient's medical history is significant for Factor V Leiden mutation with multiple DVTs and PEs, per patient last clot was around a year ago. He is maintained on long-term oral anticoagulation. Patient also has obstructive sleep apnea, COPD, has home oxygen but notes is not always compliant with using this or with taking medications prescribed for his diabetes mellitus. Notes chronic shortness of breath with his COPD. Patient follows with Dr. Seals in primary care for his chronic medical issues. Patient is a current everyday smoker, approximately 2 packs per day. PAST MEDICAL HISTORY Diagnosis Date Chronic pain Displacement of intervertebral disc, site unspecified, without myelopathy 05/06/2005 DVT (deep venous thrombosis) ([facility]) Esophageal reflux Factor V Leiden mutation (HCC) Generalized osteoarthrosis, unspecified site Hypothyroidism Myalgia and myositis, unspecified Neuralgia, neuritis, and radiculitis, unspecified Obesity, unspecified LEONEL (obstructive sleep apnea) Pulmonary embolism (HCC) 03/2020 Spondylosis of unspecified site without mention of myelopathy Thoracic or lumbosacral neuritis or radiculitis, unspecified 04/01/2005 Type 2 diabetes mellitus (HCC) Unspecified essential hypertension PAST SURGICAL HISTORY Procedure Laterality Date ARTHROSCOPY KNEE DIAGNOSTIC W/WO SYNOVIAL BX SPX 04/17/2003 Arthroscopy, knee, right knee COLONOSCOPY FLX DX W/COLLJ SPEC WHEN PFRMD 05/21/2014 Colonoscopy COLONOSCOPY FLX DX W/COLLJ SPEC WHEN PFRMD 05/27/15 Colonoscopy ESOPHAGOGASTRODUODENOSCOPY TRANSORAL DIAGNOSTIC 05/21/2014 EGD Current Outpatient Medications Medication Sig apixaban (ELIQUIS) 5 mg tab(s) Take 1 tablet by mouth twice daily. furosemide (LASIX) 40 mg tablet Take 1 tablet by mouth once daily. guaiFENesin (MUCINEX) 600 mg 12 hr tablet Take 2 tablets by mouth twice daily as needed for cold/allergy symptoms. atorvastatin (LIPITOR) 10 mg tablet Take 1 tablet by mouth once daily. metFORMIN (GLUCOPHAGE) 500 mg tablet Take 2 tablets by mouth daily with breakfast. albuterol HFA (VENTOLIN HFA) 90 mcg/actuation inhaler INHALE 2 PUFFS ORALLY DIRECTED EVERY 4 HOURS NEEDED levothyroxine (SYNTHROID) 200 mcg tablet Take 1 tablet by mouth once daily. Take on empty stomach. For Thyroid. DULoxetine (CYMBALTA) 60 mg capsule Take 1 capsule by mouth twice daily. lxcnzcdeen-hhfbbmgx-xbkomrgaja (BREZTRI AEROSPHERE) 160-9-4.8 mcg/actuation HFA aerosol inhaler Inhale 2 Puffs as instructed twice daily. gabapentin (NEURONTIN) 300 mg capsule Take 1 capsule by mouth daily at bedtime for 186 days. omeprazole (PRILOSEC) 40 mg capsule Take 1 capsule by mouth once daily. glimepiride (AMARYL) 2 mg tablet Take 1 tablet by mouth daily with breakfast. meclizine (ANTIVERT) 25 mg tab Take 1 tablet by mouth twice daily as needed (dizziness). lisinopril (ZESTRIL, PRINIVIL) 20 mg tablet Take 1 tablet by mouth once daily. celecoxib (CELEBREX) 100 mg capsule Take 1 capsule by mouth twice daily. Lancets lancets Test blood sugar(s) 1 times daily. Dx: Type 2 DM - Uncontrolled E11.65 Insulin: No blood sugar diagnostic (BLOOD GLUCOSE TEST) test strip Test blood sugar(s) 1 times daily. Dx: Type 2 DM - Uncontrolled E11.65 Insulin: No No current facility-administered medications for this visit. ALLERGIES: Latex and Zomig [Zolmitriptan] PERSONAL HISTORY: Social History Tobacco Use Smoking status: Every Day Packs/day: 2.00 Years: 43.00 Total pack years: 86.00 Types: Cigarettes, Cigars Start date: 08/23/1978 Smokeless tobacco: Former Tobacco comments: smokes Cigars blackand maloney and cigarettes 2 ppd smoker Vaping Use Vaping Use: Never used Substance Use Topics Alcohol use: Yes Comment: 6 pack per year Drug use: No FAMILY HISTORY: FAMILY HISTORY Problem Relation Age of Onset Diabetes Mother Hypertension Mother Cancer Mother pancreas Lung Cancer Mother Heart Father COPD Sister other (breathing issues) Sister Factor 5 Leiden Sister REVIEW OF SYMPTOMS: The review of systems data was entered by the nurse and reviewed by nv Nursing Notes: Amy Lewis RN 03/09/2023 1:16 PM Signed REVIEW OF SYSTEMS: General: The patient NOTES fatigue, denies weight loss, denies weight gain, denies feeling hot, anddenies feelings of cold. Eyes: The patient denies glaucoma, denies eye injury/surgery, wears glasses or contacts. Ear/Nose/Throat: The patient NOTES allergies, denies hayfever, denies ear infections, and denies bloody noses. Cardiovascular: The patient denies chest pain, NOTES heart disease, NOTES high blood pressure,denies cardiac stent, NOTES prior heart attack, denies irregular heart beat, NOTES high cholesterol, denies poor circulation, denies heart failure, other cardiac issues, NOTES claudication, denies cold feet, denies peripheral arterial stent. Respiratory: The patient denies tuberculosis, denies pneumonia, NOTES frequent cough, NOTES pulmonary embolism, NOTES shortness of breath, and denies coughing up blood. Gastrointestinal: The patient NOTES difficulty swallowing, NOTES acid reflux, denies ulcers, deniesvomiting, denies jaundice/hepatitis, denies gallbladder problems, denies black or tarry stools, denies hemorrhoids, denies bleeding from rectum, denies diverticulitis, denies constipation, denies diarrhea, denies loss of stool control, and denies hernias. Kidney/Bladder: The patient denies kidney stones, denies urine infections, and denies bloody urine. Skin: The patient denies a history of skin cancer, NOTES bleeding/changing moles, and denies a history of skin rash. Neurologic: The patient denies a history of epilepsy/convulsions, NOTES headaches, denies head/spinal injuries, and denies stroke/TIA. Psychiatric: The patient denies psychiatric medications, NOTES depression, and denies voices, denies substance abuse. Endocrine: The patient NOTES thyroid disorders, NOTES diabetes, and denies hormonal problems. Hematologic: The patient denies a history of bruising, NOTES bleeding, and denies anemia, NOTES blood clots. Infections: The patient denies a history of measles and mumps, denies rheumatic fever, and denies sexually transmitted diseases. Musculoskeletal: The patient NOTES back pain/injury, NOTES back problems, NOTES sciatica, NOTES knee/foot trouble, NOTES arthritis, or denies gout. When was patient's last Mammogram screening? N/A Last Colonoscopy: 05/27/2015 Amy Lewis RN I have confirmed and edited as necessary, the PFSH and ROS obtained by others. Anh Quezada PA-C PHYSICAL EXAMINATION: General: The patient is 58 year old male, well nourished, well hydrated in no acute distress. The patient is oriented to time, place, and person. VITALS: Blood pressure 142/80, pulse 78, temperature 36.4 C (97.5 F), height 182.9 cm (6'), weight 130.5 kg (287 lb 9.6 oz), SpO2 96 %. Body mass index is 39.01 kg/m . HEENT: Normal cephalic, ataumatic, pupils are equally round, sclera are anicteric, mucous membranesare moist, oropharynx is clear. Neck has no masses, asymmetry or lymphadenopathy. Respiratory: Clear to auscultation and percussion. Normal respiratory excursion and pattern. Cardiac: Examination is regular rate and rhythm. Normal S1/S2 Abdominal exam: Soft, nontender, with no palpable masses. No hepatosplenomegaly. No palpable hernias. Extremities: no clubbing, cyanosis or edema. No adenopathy. LABORATORY VALUES: As Noted RADIOLOGIC STUDIES: As Noted Assessment IMPRESSION: encounter for screening colonoscopy. History of benign colon polyp. Multiple medical comorbidities PLAN: I have reviewed my findings with the surgeon. Will plan for lower endoscopy. We discussed therisks and benefits of the planned endoscopy. I have informed the patient that complications can occur including failure to complete the endoscopy and perforation. The patient had the opportunity to ask questions concerning the planned endoscopy. My staff has also explained the procedure to the patient in understandable terms and has given the patient printed material concerning the procedure. Thepatient freely consents to surgery. I plan to use Miralax bowel preparation Patient to remain on anticoagulation for endoscopy The patient has medical comorbidities for which we will plan for the procedure to be performed under Monitored Anesthetic Care. Patient will require PACC to ensure medically optimized for endoscopy If this colonoscopy is negative for polyps, would extend interval for next colonoscopy to 10 years based on updated colorectal cancer screening and surveillance guidelines Diagnoses: (Z12.11) Special screening for malignant neoplasms, colon (primary encounter diagnosis) (Z86.010) History of colonic polyps (D68.51) Factor V Leiden (HCC) (Z99.81) Requires continuous at home supplemental oxygen (I74.9) Embolism and thrombosis (HCC) (Z72.0) Tobacco use Consultation requested by Dr. Seals for an opinion regarding screening colonoscopy. My final recommendations will be communicated back to the requesting physician by way of shared Medical recordor letter to requesting physician via US mail. Anh Quezada PA-C documented in this encounterW[facility]07-18-[facility]23 Nurse Note* Amy Lewis RN - 03/09/2023 1:13 PM EDT REVIEW OF SYSTEMS: General: The patient NOTES fatigue, denies weight loss, denies weight gain, denies feeling hot, anddenies feelings of cold. Eyes: The patient denies glaucoma, denies eye injury/surgery, wears glasses or contacts. Ear/Nose/Throat: The patient NOTES allergies, denies hayfever, denies ear infections, and denies bloody noses. Cardiovascular: The patient denies chest pain, NOTES heart disease, NOTES high blood pressure,denies cardiac stent, NOTES prior heart attack, denies irregular heart beat, NOTES high cholesterol, denies poor circulation, denies heart failure, other cardiac issues, NOTES claudication, denies cold feet, denies peripheral arterial stent. Respiratory: The patient denies tuberculosis, denies pneumonia, NOTES frequent cough, NOTES pulmonary embolism, NOTES shortness of breath, and denies coughing up blood. Gastrointestinal: The patient NOTES difficulty swallowing, NOTES acid reflux, denies ulcers, deniesvomiting, denies jaundice/hepatitis, denies gallbladder problems, denies black or tarry stools, denies hemorrhoids, denies bleeding from rectum, denies diverticulitis, denies constipation, denies diarrhea, denies loss of stool control, and denies hernias. Kidney/Bladder: The patient denies kidney stones, denies urine infections, and denies bloody urine. Skin: The patient denies a history of skin cancer, NOTES bleeding/changing moles, and denies a history of skin rash. Neurologic: The patient denies a history of epilepsy/convulsions, NOTES headaches, denies head/spinal injuries, and denies stroke/TIA. Psychiatric: The patient denies psychiatric medications, NOTES depression, and denies voices, denies substance abuse. Endocrine: The patient NOTES thyroid disorders, NOTES diabetes, and denies hormonal problems. Hematologic: The patient denies a history of bruising, NOTES bleeding, and denies anemia, NOTES blood clots. Infections: The patient denies a history of measles and mumps, denies rheumatic fever, and denies sexually transmitted diseases. Musculoskeletal: The patient NOTES back pain/injury, NOTES back problems, NOTES sciatica, NOTES knee/foot trouble, NOTES arthritis, or denies gout. When was patient's last Mammogram screening? N/A Last Colonoscopy: 05/27/2015 Amy Lewis RN documented in this encounterCleveland [id number] Miscellaneous Notes* Telephone Encounter - Allyson Ball LPN - 03/08/2023 2:22 PM EDT Rec'd covermymed PA for eliquis 5 mg. Called the pharmacy and they report pts insurance is wanting this to be a 90 day supply. They were able to over ride this. documented in this encounterW[facility]07-14-2023 History of Present illness Narrative* Kaushik Seals MD - 03/05/2023 10:40 AM EDT Chief Complaint Patient presents with: 6 Month Exam HPI Lucas Mccabe is a 57 year old male who presents here today for 6 month follow up. Smoking 1 ppd or less. Encouraged quitting. No bowel, Gi, or urinary issues. GERD: Sx stable on Prilosec 40 mg daily. Lipid: Denies watching diet or exercise. Taking Lipitor 10 mg daily. HTN: Does not check his BP at home. He has continued SOB, dizziness, and chest pains, no changes insx. He follows with Pulm for lung issues. Is taking Lisinopril 20 mg daily. Pain: neuropathy and DDD; taking Celebrex 100 mg BID which was started last visit. Edema: B/l legs; stable on Lasix 40 mg daily. COPD/Asthma: follows with Pulm. Still smoking 1-2 ppd with no plans of quitting. Uses inhalers. DM: Denies checking BS at home. Denies any hypoglycemic episodes, states he can tell when his BS are too high or too low. He does have neuropathy in feet which is controlled with the Cymbalta 60 mg BID, Celebrex 100 mg BID and Gabapentin 300 mg daily at bedtime. Is taking Metformin 500 mg 2 pill once daily for diabetes control. Thyroid: Taking Levothyroxine 200 mcg daily. Depression: Stable on Cymbalta 60 mg twice daily. DVT: Is taking Eliquis 5 mg BID. Hx of vertigo, uses meclizine as needed. Past medical history, appointments, medications, allergies reviewed. Previous Medical History PAST MEDICAL HISTORY Diagnosis Date Chronic pain Displacement of intervertebral disc, site unspecified, without myelopathy 05/06/2005 DVT (deep venous thrombosis) ([facility]) Esophageal reflux Factor V Leiden mutation ([facility]) Generalized osteoarthrosis, unspecified site Hypothyroidism Myalgia and myositis, unspecified Neuralgia, neuritis, and radiculitis, unspecified Obesity, unspecified LEONEL (obstructive sleep apnea) Pulmonary embolism ([facility]) 03/2020 Spondylosis of unspecified site without mention of myelopathy Thoracic or lumbosacral neuritis or radiculitis, unspecified 04/01/2005 Type 2 diabetes mellitus ([facility]) Unspecified essential hypertension Previous Surgical History PAST SURGICAL HISTORY Procedure Laterality Date ARTHROSCOPY KNEE DIAGNOSTIC W/WO SYNOVIAL BX SPX 04/17/2003 Arthroscopy, knee, right knee COLONOSCOPY FLX DX W/COLLJ SPEC WHEN PFRMD 05/21/2014 Colonoscopy COLONOSCOPY FLX DX W/COLLJ SPEC WHEN PFRMD 05/27/15 Colonoscopy ESOPHAGOGASTRODUODENOSCOPY TRANSORAL DIAGNOSTIC 05/21/2014 EGD Family History FAMILY HISTORY Problem Relation Age of Onset Diabetes Mother Hypertension Mother Cancer Mother pancreas Lung Cancer Mother Heart Father COPD Sister other (breathing issues) Sister Factor 5 Leiden Sister Patient Allergies ALLERGIES Allergen Reactions Latex Intolerance Headache, dizzy, trouble breathing Zomig [Zolmitriptan] Mental Status Change Current Medications Current Outpatient Medications on File Prior to Visit Medication Sig guaiFENesin (MUCINEX) 600 mg 12 hr tablet Take 2 tablets by mouth twice daily as needed for cold/allergy symptoms. atorvastatin (LIPITOR) 10 mg tablet Take 1 tablet by mouth once daily. apixaban (ELIQUIS) 5 mg tab(s) Take 1 tablet by mouth twice daily. furosemide (LASIX) 40 mg tablet Take 1 tablet by mouth once daily. metFORMIN (GLUCOPHAGE) 500 mg tablet Take 2 tablets by mouth daily with breakfast. albuterol HFA (VENTOLIN HFA) 90 mcg/actuation inhaler INHALE 2 PUFFS ORALLY DIRECTED EVERY 4 HOURS NEEDED levothyroxine (SYNTHROID) 200 mcg tablet Take 1 tablet by mouth once daily. Take on empty stomach. For Thyroid. DULoxetine (CYMBALTA) 60 mg capsule Take 1 capsule by mouth twice daily. yikfyfogyt-nbnrefye-ectiagprex (BREZTRI AEROSPHERE) 160-9-4.8 mcg/actuation HFA aerosol inhaler Inhale 2 Puffs as instructed twice daily. gabapentin (NEURONTIN) 300 mg capsule Take 1 capsule by mouth daily at bedtime for 186 days. omeprazole (PRILOSEC) 40 mg capsule Take 1 capsule by mouth once daily. glimepiride (AMARYL) 2 mg tablet Take 1 tablet by mouth daily with breakfast. meclizine (ANTIVERT) 25 mg tab Take 1 tablet by mouth twice daily as needed (dizziness). lisinopril (ZESTRIL, PRINIVIL) 20 mg tablet Take 1 tablet by mouth once daily. celecoxib (CELEBREX) 100 mg capsule Take 1 capsule by mouth twice daily. Lancets lancets Test blood sugar(s) 1 times daily. Dx: Type 2 DM - Uncontrolled E11.65 Insulin: No blood sugar diagnostic (BLOOD GLUCOSE TEST) test strip Test blood sugar(s) 1 times daily. Dx: Type 2 DM - Uncontrolled E11.65 Insulin: No No current facility-administered medications on file prior to visit. Social History Social History Tobacco Use Smoking status: Every Day Packs/day: 2.00 Years: 43.00 Total pack years: 86.00 Types: Cigarettes, Cigars Start date: 08/23/1978 Smokeless tobacco: Former Tobacco comments: smokes Cigars Powderhook maloney and cigarettes 2 ppd smoker Substance Use Topics Alcohol use: Yes Comment: 6 pack per year Drug use: No EXAM: BP 150/80 Pulse 74 Resp 18 Wt 130.2 kg (287 lb) BMI 38.92 kg/m General Appearance: Well appearing, alert, in no acute distress, well-hydrated, well nourished. andObese. Lungs: Lungs clear to auscultation. No wheezing, rhonchi, rales.. Heart: RRR without murmur, gallop, or rubs. No ectopy. Extremities: varicose veins of lower legs. Health Maintenance List HEPATITIS B(1 of 3 - 3-dose series) Never done ALPHA-1 ANTITRYPSIN DEFICIENCY SCREENING Never done PNEUMOCOCCAL(2 - PCV) due on 06/24/2012 SHINGRIX VACCINE(1 of 2) Never done PROSTATE CANCER SCREENING DISCUSSION Never done DILATED RETINAL EXAM due on 08/09/2019 URINE ALBUMIN:CREATININE RATIO due on 09/20/2019 DIABETIC FOOT EXAM due on 01/05/2020 BP CONTROLLED (<130/80) due on 01/05/2020 COLORECTAL CANCER SCREENING due on 05/27/2020 DEPRESSION ASSESSMENT Never done LUNG CANCER SCREENING due on 12/16/2022 COVID-19 VACCINE(1) due on 09/05/2023 HBA1C due on 03/05/2023 INFLUENZA(Season Ended) due on 04/23/2023 LDL CHOLESTEROL due on 09/05/2023 ANNUAL PCP TEAM CHRONIC DISEASE VISIT due on 09/05/2023 DTAP,TDAP,TD(2 - Td or Tdap) due on 07/10/2029 SPIROMETRY Completed HEPATITIS C SCREENING Completed HIV SCREENING Discontinued Data reviewed none ASSESSMENT/PLAN: 1. Type 2 diabetes, controlled, with neuropathy (HCC) - ICD9: 250.60, 357.2, ICD10: E11.40 (primarydiagnosis) - Controlled - Continue current medications - COMP METABOLIC PANEL - HGB A1C 2. Acute pulmonary embolism, unspecified pulmonary embolism type, unspecified whether acute cor pulmonale present (HCC) - ICD9: 415.19, ICD10: I26.99 - APIXABAN 5 MG TABLET 3. Venous insufficiency - ICD9: 459.81, ICD10: I87.2 - FUROSEMIDE 40 MG TABLET 4. Cellulitis of lower extremity, unspecified laterality - ICD9: 682.6, ICD10: L03.119 - FUROSEMIDE 40 MG TABLET 5. Special screening for malignant neoplasms, colon - ICD9: V76.51, ICD10: Z12.11 Had colonoscopy 2014 with hyperplastic 6 mm polyp removed; 5 year follow up recommended - CONSULT TO GENERAL SURGERY 6. Need for vaccination - ICD9: V05.9, ICD10: Z23 - PNEUMOCOCCAL VACCINE (PREVNAR 20) 7. Primary hypercoagulable state (HCC) - ICD9: 289.81, ICD10: D68.59 Continue current medications. 8. Acquired hypothyroidism - ICD9: 244.9, ICD10: E03.9 - Instructed patient on importance of taking on an empty stomach either first thing in the morning or at bedtime. - check TSH today - TSH BLD 9. Essential hypertension - ICD9: 401.9, ICD10: I10 Elevated today; has not taken meds - Continue current medications - Encouraged sodium restriction, DASH or Mediterranean diet - Recommend regular aerobic exercise - CBC 10. History of colonic polyps - ICD9: V12.72, ICD10: Z86.010 - CONSULT TO GENERAL SURGERY Notify of lab results Follow up in 6 months I agree with the Chief Complaint, ROS, and Past Histories independently gathered by the clinical technical support analyst and the remaining scribed note accurately describes my personal service to the patient. Medical Decision Making: Problems: Moderate: 2+ stable chronic illnesses Data: Unique test(s) ordered: 3+ Risk: Moderate: Drug management Medical Decision Making Level: 4 - Moderate Kaushik Seals MD The documentation for this note was completed by Vanessa Capone Ma acting as scribe for Kaushik Seals MD. March 05, 2023 10:16 AM. Vanessa Capone Ma documented in this encounterW[facility]07-14-2023 Instructions* Patient Instructions* Vanessa Capone Ma - 03/05/2023 10:15 AM EDT Health Information For Patients and the Community How to Prepare for Your Colonoscopy Using Golytely, Nulytely, Trilyte or Colyte Preparations IMPORTANT - Please Read These Instructions at Least 2 Weeks Before Your Colonoscopy Pugh Instructions: ?Your bowel must be empty so that your doctor can clearly view your colon. Follow all of the instructions in this handout EXACTLY as they are written. If you do NOT follow the directions for when to start drinking the bowel preparation (see next page), your colonoscopy WILL be cancelled. ?Do NOT eat any solid food the ENTIRE day before your colonoscopy. ?Buy your bowel preparation at least 5 days before your colonoscopy. ?Do NOT mix the solution until the day before your colonoscopy. Designated Wool Hat Sanding Machine Operator on the Day of Your Exam A responsible family member or friend MUST come with you to your colonoscopy and REMAIN in the endoscopy area until you are discharged! You are NOT ALLOWED to drive, take a taxi or bus, or leave the Endoscopy Center ALONE. If you do not have a responsible dairy truck driver (family member or friend) with you to take you home, your exam cannot be done with sedation and will be cancelled. Medications Some of the medicines you take may need to be stopped or adjusted before your colonoscopy. You MUST call the doctor who ordered any of the following medicines at least 2 weeks before your colonoscopy. ?Blood thinners -- such as Coumadin (warfarin), Plavix (clopidogrel), Ticlid (ticlopidine hydrochloride), Agrylin (anagrelide), Xarelto (Rivaroxaban), Pradaxa (Dabigatran), Eliquis (Apixaban), and Effient (Prasugrel). ?Insulin or diabetes pills. Please call the doctor that monitors your glucose levels. Your insulin dosage may need to be adjusted due to the diet restrictions required with this bowel preparation. (Please bring your diabetes medicines with you on the day of your procedure.) If you take aspirin, take it and ALL other medications prescribed by your doctor. On the day of your colonoscopy, take your medications with a sip of water. Revised 09/2016 1 Five (5) Days Before Your Colonoscopy ?Do NOT take medicines that stop diarrhea -- such as Imodium , Kaopectate , or Pepto Bismol . ?Do NOT take fiber supplements -- such as Metamucil , Citrucel , or Perdiem . ?Do NOT take products that contain iron -- such as multi-vitamins -- (the label lists what is in the products). ?Do NOT take vitamin E. Buy the prescription bowel preparation solution at your local pharmacy or drugstore pharmacy. Three (3) Days Before Your Colonoscopy Do NOT eat high-fiber foods -- such as popcorn, beans, seeds (flax, sunflower, quinoa), multigrain bread, nuts, salad/vegetables, or fresh and dried fruit. One (1) Day Before Your Colonoscopy Only drink clear liquids the ENTIRE DAY before your colonoscopy. Do NOT eat any solid foods. Drink at least 8 ounces of clear liquids every hour after waking up. The clear liquids you can drink include: ?water, apple, or white grape juice; broth; coffee or tea (without milk or creamer); clear carbonated beverages such as jus marisela or lemon-b[place] creek soda; Gatorade or other sports drinks (not red); Sy-Aid or other flavored drinks (not red). You may eat plain jello or other gelatins (not red) or popsicles (not red). Do NOT drink alcohol on the day before or the day of the procedure. 2 Revised 09/2016 When to Mix and Drink Your Bowel Prep Follow the instructions on the label. After mixing, place the solution in the refrigerator for a couple of hours before drinking. You may add the flavor packet that came with the bowel preparation. DO NOT add ice, sugar or any flavorings to the solution. Evening Before Your Colonoscopy ?Start drinking the bowel preparation at 6 PM the evening before your colonoscopy. Drink an 8-oz glass of bowel preparation every 10 minutes. You must finish drinking the solution by 9 PM the night before your scheduled procedure. ?You may continue to drink clear liquids only until midnight. Do NOT eat or drink ANYTHING after midnight the night before your procedure or your procedure may be cancelled. This is for your safety and will reduce the risk of having any food or liquid in your stomach move into your lungs (aspiration) during a procedure. If you take aspirin, take it and ALL other prescribed medicines with a sip of water on the day of your colonoscopy. Contact Information: If you are unable to keep your appointment or have any questions about the instructions, please call the facility where the procedure is being performed. Call between the hours of 8:00 AM and 5:00 PM. If you are calling after 5:00 PM, please call Nurse electric motor control assembler at [phone]. [facility] [address] [place] [id number] Index # [id number] Revised 09/2016 3 Colonoscopy Procedure Overview Please Read Prior to the Procedure What is a Colonoscopy A colonoscopy is an outpatient procedure in which the inside of the large intestine (colon and rectum) is examined. A colonoscopy is commonly used to evaluate gastrointestinal symptoms, such as rectal and intestinal bleeding, abdominal pain, or changes in bowel habits. Colonoscopies are also performed in individuals without symptoms to check for colorectal polyps or cancer. A screening colonoscopy is recommended for anyone 50 years of age and older, and for anyone with parents, siblings or children with a history of colorectal cancer or polyps. What Happens Before a Colonoscopy To have a successful colonoscopy, your bowel must be empty so that your physician can clearly view the colon. To do this, it is very important to read and follow all of the instructions given to you at least 2 weeks BEFORE your exam. If your bowel is not empty, your colonoscopy will not be successful and may have to be repeated. If you feel nauseated or vomit while taking the bowel preparation, wait 30 minutes before drinking more fluid and start with small sips of solution. Some activity (such as walking) or a few soda crackers may help decrease the nausea you are feeling. If the nausea persists, please contact nurse balloon tester at [phone]. You may experience skin irritation around the anus due to the passage of liquid stools. To prevent and treat skin irritation, you should: ?Apply Vaseline or Desitin ointment to the skin around the anus before drinking the bowel preparation medications. These products can be purchased at any drugstore. ?Wipe the skin after each bowel movement with disposable wet wipes instead of toilet paper. These are found in the toilet paper area of the store. ?Sit in a bathtub filled with warm water for 10 to 15 minutes after you finish passing a stool; after soaking, blot the skin dry with a soft cloth, apply Vaseline or Desitin ointment to the anal area, and place a cotton ball just outside your anus to absorb leaking fluid. What Happens During a Colonoscopy During a colonoscopy, an experienced physician uses a colonoscope (a long, flexible instrument about 1/2 inch in diameter) to view the lining of the colon. The colonoscope is inserted into the rectumand advanced through the large intestine. If necessary during a colonoscopy, small amounts of tissue can be removed for analysis (a biopsy) and polyps can be identified and entirely removed. In many cases, a colonoscopy allows accurate diagnosis and treatment of colorectal problems without the needfor a major operation. Revised 09/2016 5 ?You are asked to wear a hospital gown and an IV will be started. ?You are given a pain reliever and a sedative intravenously (in your vein). You will feel relaxed and somewhat drowsy. ?You will lie on your left side, with your knees drawn up towards your chest. ?A small amount of air is used to expand the colon so the physician can see the colon catalan. ?You may feel mild cramping during the procedure. Cramping can be reduced by taking slow, deep breaths. ?The colonoscope is slowly withdrawn while the lining of your bowel is carefully examined. ?The procedure lasts from 30 minutes to 1 hour. What Happens After a Colonoscopy ?You will stay in a recovery room for observation until you are ready for discharge. ?You may feel some cramping or a sensation of having gas, but this quickly passes. ?If sedation has been given, a responsible family member or friend must drive you home. ?Avoid alcohol, driving, and operating machinery for 24 hours following the procedure. ?Unless otherwise instructed, you may immediately return to your normal diet. We recommend you waituntil the day after your procedure to resume normal activities. ?If polyps were removed or a biopsy was taken, the physician performing your colonoscopy will tell you when it is safe to resume taking your blood thinners. ?If a biopsy was taken or a polyp was removed, you may notice a little amount of rectal bleeding for 1 to 2 days after the procedure. If you have a large amount of rectal bleeding, high or persistentfevers, or severe abdominal pain within the next 2 weeks, please go to your local emergency room and call the physician who performed your exam. 6 Revised 09/2016 Copyright 7413-1666 [facility]. All rights reserved. Revised 09/2016 documented in this encounterWooster [facility]05-03-2023 Miscellaneous Notes* Telephone Encounter - Zoraida Lund RN - 12/23/2022 1:40 PM EDT 12/23/22: Deny Payne requesting CTA chest images done at [facility] 11/19/22. Spoke with Sharmin--not [facility] patient. Called [facility] ; spoke with Ana Luisa. Pushing CTA now. 12/23/22: Did not recv film; recalled [facility]. Repushing now. Zoraida Lund RN Respiratory [facility] documented in this encounterWooster [facility] Hospital05-03-2023 Instructions* Patient Instructions* Sarita Payne APRN.DARNELL - 12/23/2022 11:24 AM EDT According to your age and smoking exposure, the [place] Preventive Services Task Force does NOT recommend lung cancer screening for you. Due to this, the CT for screening will not be a covered insurance benefit for you at this time. Unfortunately, you are ineligible due to having had a chest CT done 11/19/2022 Lung Cancer Screening Eligibility Criteria: In order to be eligible for lung cancer screening a patient must be 50-77 years old have smoked within the last 15 years have no signs or symptoms attributable to a potential lung cancer have a 20 pack year history of smoking. Be willing and able to tolerate curative intent treatment -Continue Continue brezetri daily. Rinse/gargle mouth after each use to prevent oral thrush. - Continue Albuterol HFA inhaler, 2 inhalations 10-15 minutes prior to activities associated with shortness of breath, and as needed for rescue relief of shortness of breath, cough or wheezing, up to4 times daily as needed. - start Mucinex 600 mg twice daily for 2 week as needed. Cigarette Logs : Record every single smoked cigarette on a cigarette log (either on their smartphone or with paper and pencil) contiguous to the smoking. Logging your smoked cigarettes in real-time (while smoking) helps quantify consumption accurately and helps you and your act of smoking become more mindful versus automatically, habitually without thought or cognizance. You can't change something if you can't measure the change. We discussed behavioral modification methods in order to unpair certain habits of smoking with specific activities and to help wean down the patient's smoking over time in order to minimize withdrawal effects of reduction in nicotine intake. Patient was instructed to smoke every hour on the hour during waking hours and not pair the cigarette with a normal activity such as coffee or driving as he or she normally would have. Patient was instructed to do this for a week and then cut back to smoking one cigarette every other hour for the second week, then cut back to smoking a cigarette every third hour on the third week, and quit on week 4. I instructed patient when starting this method to not smoke any more cigarettes than they normally would have smoked in a day and if they smoke 20 cigarettes per day to set those cigarettes out aheadof time and space them out evenly throughout the day to ensure they aren't increasing their cigarette consumption. Oral Substitutes/Hydration Drinking water is a superb coping technique. Snacking on crunchy, nutrient dense, low calorie foodssuch as chopped peppers, celery, or carrots can be extremely helpful. Using cinnamon sticks, plastic straws, and sugarless gum/ candy are also excellent oral substitutes. Phone [phone] ([phone]) as additional resource. Central Scheduling Lung Cancer Screening Team: Anh Wayne CNP; Sarita Payne CNP; Altagracia Arenas CNP;Yeyo Rodriguez CNP; Luda Headley PA-C & Alyssa Clark PA-C: [phone] documented in this encounterW[facility]05-[facility]23 History of Present illness Narrative* Sarita Payne APRN.DARNELL - 12/23/2022 10:56 AM EDT Images from the original note were not included. LUNG SCREENING VISIT PRIMARY CARE PHYSICIAN: Kaushik Seals MD PULMONARY PROVIDER: None Results will be communicated via letter or electronic record if applicable. Visit Delivery: In Person Patient Visit Type: Established Current Exam Type: Not eligible CTA chest completed 10/2022 Number of Pack Years: 86 Current smoker (=0) The patient's smoking history is similar to prior year shared decision visit. Results will be communicated via letter or electronic record. REQUESTER: The referring provider advised the patient to have screening. HISTORY OF PRESENT ILLNESS: Lucas Mccabe is a 57 year old active smoker who presents for lung screening. Factor V Leiden mutation with previous thrombotic events including DVT, pulmonary embolism, DM II, GERD Notes chest discomfort ongoing since past 1 years, intermittently, recently increased a month ago, was evaluated at [place] [facility] 11/19/2022 for chest pain/discomfort CTA Chest PE negative per report. Cardiac work up negative Troponin, 12 lead EKG SR with PAC bigeminy. Will retrieve images. Denies chest discomfort/pain today Reports SOB ongoing with ambulating < 0.5 mile, with climbing <1 flight of stairs. Has to take frequent short breaks with routine ADLs. Uses cane to ambulate. Also limited due to chronic Lower back pain, b/l leg pain. Appetite is stable, 1-2 meals/day Coughing: Yes: With mucus Yellow, Clear, and Thick ongoing- will add mucinex to facilitate mucus clearance Recent Respiratory Infection: No last tested for COVID 19 positive 3 months on home kit. Denies hospitalizations. Notes occasional wheezes on daily inhaler Breztri HFA and prn albuterol HFA. Denies Hemoptysis: No Fever/Chills: No Unintentional weight loss: No Last 6 Encounter Wt Readings: Date: Wt: 12/23/2022 123.4 kg (272 lb) 09/05/2022 121.9 kg (268 lb 12.8 oz) 12/02/2021 134.4 kg (296 lb 4.8 oz) 04/04/2021 145.2 kg (320 lb) 04/04/2021 145.2 kg (320 lb) 02/19/2021 146.1 kg (322 lb) ECOG PERFORMANCE STATUS: 2- Ambulatory and capable of all selfcare; unable to carry out work activities. Up and about > 50% of waking hrs. Modified Medical [employer] [place] Dyspnea Scale (MMRC) On level ground I walk slower than people of the same age because of breathlessness, or have to stop for breath when walking at my own pace 2 Lung Cancer Risk Factors: 1.Tobacco Use: Start Age 14, Quit Age N/A , Average packs per day 2, Pack Years 85. black and maloney (past 10 years) and occasional cigarettes. Once a while he still smokes 1 pack/day cigarettes. 2. Passive Smoke Exposure: Yes as a child. 3. Personal hx of malignancy: No. 4. Significant exposures (1 year or more of exposure): Asbestos, Chemicals/ plastics manufacturing,[place], and . 5. Race: White. 6. Education:Less than high school 7. BMI:Body mass index is 36.89 kg/m . 8. COPD: Yes 9. Pneumonia in the past 5 years: No 10. Is there a history of lung cancer in a first degree relative? Yes. Mother 11. Is there a history of lung cancer in a non first degree relative? No 12. Is there a history of any other cancer in a first degree relative? Yes. PAST MEDICAL HISTORY Diagnosis Date Chronic pain Displacement of intervertebral disc, site unspecified, without myelopathy 05/06/2005 DVT (deep venous thrombosis) ([facility]) Esophageal reflux Factor V Leiden mutation (HCC) Generalized osteoarthrosis, unspecified site Hypothyroidism Myalgia and myositis, unspecified Neuralgia, neuritis, and radiculitis, unspecified Obesity, unspecified LEONEL (obstructive sleep apnea) Pulmonary embolism (HCC) 03/2020 Spondylosis of unspecified site without mention of myelopathy Thoracic or lumbosacral neuritis or radiculitis, unspecified 04/01/2005 Type 2 diabetes mellitus (HCC) Unspecified essential hypertension PAST SURGICAL HISTORY Procedure Laterality Date ARTHROSCOPY KNEE DIAGNOSTIC W/WO SYNOVIAL BX SPX 04/17/2003 Arthroscopy, knee, right knee COLONOSCOPY FLX DX W/COLLJ SPEC WHEN PFRMD 05/21/2014 Colonoscopy COLONOSCOPY FLX DX W/COLLJ SPEC WHEN PFRMD 05/27/15 Colonoscopy ESOPHAGOGASTRODUODENOSCOPY TRANSORAL DIAGNOSTIC 05/21/2014 EGD FAMILY HISTORY Problem Relation Age of Onset Diabetes Mother Hypertension Mother Cancer Mother pancreas Lung Cancer Mother Heart Father COPD Sister other (breathing issues) Sister Factor 5 Leiden Sister atorvastatin (LIPITOR) 10 mg tablet Take 1 tablet by mouth once daily. apixaban (ELIQUIS) 5 mg tab(s) Take 1 tablet by mouth twice daily. furosemide (LASIX) 40 mg tablet Take 1 tablet by mouth once daily. metFORMIN (GLUCOPHAGE) 500 mg tablet Take 2 tablets by mouth daily with breakfast. albuterol HFA (VENTOLIN HFA) 90 mcg/actuation inhaler INHALE 2 PUFFS ORALLY DIRECTED EVERY 4 HOURS NEEDED levothyroxine (SYNTHROID) 200 mcg tablet Take 1 tablet by mouth once daily. Take on empty stomach. For Thyroid. DULoxetine (CYMBALTA) 60 mg capsule Take 1 capsule by mouth twice daily. wmeenefzcb-qzazjjfe-xyzvdazvit (BREZTRI AEROSPHERE) 160-9-4.8 mcg/actuation HFA aerosol inhaler Inhale 2 Puffs as instructed twice daily. gabapentin (NEURONTIN) 300 mg capsule Take 1 capsule by mouth daily at bedtime for 186 days. omeprazole (PRILOSEC) 40 mg capsule Take 1 capsule by mouth once daily. glimepiride (AMARYL) 2 mg tablet Take 1 tablet by mouth daily with breakfast. meclizine (ANTIVERT) 25 mg tab Take 1 tablet by mouth twice daily as needed (dizziness). lisinopril (ZESTRIL, PRINIVIL) 20 mg tablet Take 1 tablet by mouth once daily. celecoxib (CELEBREX) 100 mg capsule Take 1 capsule by mouth twice daily. Lancets lancets Test blood sugar(s) 1 times daily. Dx: Type 2 DM - Uncontrolled E11.65 Insulin: No blood sugar diagnostic (BLOOD GLUCOSE TEST) test strip Test blood sugar(s) 1 times daily. Dx: Type 2 DM - Uncontrolled E11.65 Insulin: No ALLERGIES Allergen Reactions Latex Intolerance Headache, dizzy, trouble breathing Zomig [Zolmitriptan] Mental Status Change The medications and allergies were reviewed and reconciled for this patient and deemed current. Health Maintenance Immunization History Administered Date(s) Administered TD Adult 05/17/2010 influenza (IIV3) vaccine, age 3+ yr, trivalent (AFLURIA, FLULAVAL, FLUVIRIN, FLUZONE) 06/05/2014 influenza (IIV4) vaccine, age 6 mo - 64 yr, quadrivalent (AFLURIA, FLULAVAL, FLUZONE) 05/20/2015 06/11/2016 06/18/2017 07/12/2019 influenza vaccine, unspecified formulation 06/05/2009 06/02/2010 07/23/2011 06/21/2012 06/22/2013 pneumococcal (PPV23) vaccine, 23 valent (PNEUMOVAX 23) 06/23/2004 06/24/2011 tetanus diphtheria (Td) vaccine, adult, non-adsorbed 07/14/2004 tetanus diphtheria pertussis (Tdap) vaccine, age 7+ yr (ADACEL, BOOSTRIX) 07/10/2019 Colonoscopy: 05/27/2015 Mammogram: DATA REVIEW I have directly visualized the testing documented: Prior Imaging: Last CT/CTA Chest/Lungs CT LUNG SCREEN WO IVCON Exam End: 12/16/2021 4:18 PM (Final result) Narrative: * * *Final Report* * * DATE OF EXAM: Dec 16 2021 4:18PM [facility] – [place] [id number] - CT LUNG SCREEN WO IVCON / PROCEDURE REASON: Z12.2-Encounter for screening for malignant neoplasm of respiratory organs * * * * Physician Interpretation * * * * EXAMINATION: CHEST CT WITHOUT CONTRAST (LOW-DOSE CT LUNG CANCER SCREENING PROTOCOL) CLINICAL HISTORY: Lung cancer LDCT screening ? absence of signs or symptoms of lung cancer. Nicotine dependence (cigarettes). Baseline (initial) Technique: Spiral CT acquisition of the chest from the thoracic inlet to the upper abdomen without contrast. MQ: [id number]_6 Patient characteristics: * Msgx-du-Prmlp: 1965; Age at exam: 56 years * Gender: Male * Lung Disease: Asymptomatic (no signs or symptoms of lung disease) * Number of Pack Years: 84 * Current smoker (=0) or Number of Years since Quit: 0 * Ordering provider and NPI: SARITA PAYNE [id number] * Interpreting radiologist and NPI: Corin [id number] Exam acquisition parameters: * Exam Date: 12/16/2021 4:18 PM * Site: [facility] * * CT System Fire Sprinkler Inspector: Iptivia * CT System Model: Dual Source * Tube Current-Time (mA-sec): 40 * Peak Voltage (kV): 120V * Scan Time (sec): 5.35 * Scan Volume (z-length, cm): 28.00 * Pitch: 1.0 * Slice Thickness (mm): 1.5 * CT Dose-Length Product: 147 mGy*cm * CT Dose Index: 4.71mGy * CT Dose Reduction Method: mAs-kVp adjusted based on patient size-age COMPARISON: CT chest dated 07/18/2012 RESULT: Are nodules present? Yes, 1-5 nodules If No, go to IMPRESSION. If yes, proceed with characterization of the FIVE largest nodules. Nodule 1: This Solid nodule is located in the Left Upper Lobe on slice number 51 with an average diameter of 3.0 mm (3.1 mm x 2.9 mm). Nodule 2: This Solid nodule is located in the Left Upper Lobe on slice number 117 with an average diameter of 2.3 mm (2.7 mm x 1.8 mm). Other lung nodule comments: None Other findings: The central airways are patent without evidence of endobronchial lesion. Upper lobe predominant centrilobular emphysema with diffuse bronchial wall thickening is seen. There is mild diffuse bronchial wall thickening. Upper lobe predominant centrilobular groundglass nodules likely represent respiratory bronchiolitis. No acute focal lung consolidation is seen. Bibasilar dependent atelectasis is present. There is no pleural effusion or pneumothorax. No enlarged supraclavicular, axillary, mediastinal or hilar lymph nodes are seen. The aorta and main pulmonary artery are normal in course and caliber. The heart size is normal. There is no pericardial effusion. The thyroid gland is unremarkable. The esophagus is nondilated. The soft tissues of the chest wall are unremarkable. The visible portion of the upper abdomen is unremarkable. No destructive bone lesion is seen. Degenerative changes are seen in the thoracic spine. Emphysema: Mild (5-25%), Centrilobular, Upper lobe Coronary Artery Calcifications: Circumflex None; Left Anterior Descending None; Right Coronary None Periodontal Assistant (topogram) images: No additional findings. Impression: IMPRESSION: LungRADS category: 2 LungRADS modifier: None LungRADS 0 reason: n/a Recommendations: Continue annual screening with LDCT in 12 months. Other actionable findings: Reference: [employer]. Lung CT Screening Reporting and Data System (Lung-RADS). Available at: http://www.acr.org/Quality-Safety/Resources/LungRADS Talent Engineer: MARGUERITE Transcribe Date/Time: Dec 16 2021 4:46P Dictated by : MADELIN FERNANDO MD This examination was interpreted and the report reviewed and electronically signed by: MADELIN FERNANDO MD on Dec 16 2021 5:06PM EST Last CT Chest - Impression Only CT CHEST WO CONTRAST Collected: 07/18/2012 10:04 AM (Final result) Last XR Chest - Impression Only XR CHEST 2V FRONTAL/LAT Exam End: 01/25/2019 9:56 AM (Final result) Impression: IMPRESSION: No acute radiographic abnormality. Talent Engineer: MARGUERITE ... Pulmonary Function Testing: SPIROMETRY - BASELINE AND POST DILATOR ([id number]) - ordered on 04/04/21 No textual results for order. Spirometry indicates moderate obstruction. There is a significant bronchodilator response. PHYSICAL EXAM: BP 141/86 (BP Site: Left Arm, BP Position: Sitting, BP Cuff Size: Large Adult) Pulse 84 Ht 182.9 cm (6') Wt 123.4 kg (272 lb) SpO2 96% BMI 36.89 kg/m General appearance: Appears disheveled, poor hygiene, in no acute distress Skin: Skin color normal, no suspicious rashes or lesions Oropharynx: Lips, mucosa normal, oropharynx normal Neck: Supple, no adenopathy Lungs: Diminished in b/l lung bases. No wheezing, rhonchi, rales. Heart: RRR without murmur, gallop, or rubs. No ectopy Musculoskeletal: No joint swelling, deformity, or tenderness Peripheral pulses: Pulses palpable, radial=4/4 Neuro: Alert & oriented X 3 ASSESSMENT and RECOMMENDATIONS: 1. Screening for lung cancer: Encounter for screening for malignant neoplasm of lung - ICD9: V76.0, ICD10: Z12.2 (primary diagnosis) I have determined that the patient is eligible for a low dose CT based on age, absence of signs or symptoms of lung cancer, and total pack years: No. Not eligible given recent CTA chest PE done 11/19/22 at [place] [facility] The patient and I engaged in shared decision making, including the use of one or more decision aids, to include benefits, harms, follow-up diagnostic testing, over-diagnosis, false positive rate, andtotal radiation exposure. The patient understands and feels comfortable with it: No. The patient was counseled on the importance of adherence to annual LDCT lung cancer screening, impact of comorbidities and ability or willingness to undergo diagnosis and treatment. The patient understands and feels comfortable with it:No. 2. Smoker - ICD9: 305.1, ICD10: F17.200 Nicotine dependence: The patient was counseled on the importance of smoking cessation if current smoker and, if appropriate, offered additional tobacco cessation counseling services - Smoking Cessation Counseling. SMOKING CESSATION COUNSELING Smoking cessation methods including Nicotine Replacement Therapies and Behavior Modification were discussed with the patient and assistance offered. The medical conditions adversely affected by cigarette use include:Emphysema and COPD/Asthma . Cigarette Logs : Record every single smoked cigarette on a cigarette log (either on their smartphone or with paper and pencil) contiguous to the smoking. Logging your smoked cigarettes in real-time (while smoking) helps quantify consumption accurately and helps you and your act of smoking become more mindful versus automatically, habitually without thought or cognizance. You can't change something if you can't measure the change. We discussed behavioral modification methods in order to unpair certain habits of smoking with specific activities and to help wean down the patient's smoking over time in order to minimize withdrawal effects of reduction in nicotine intake. Patient was instructed to smoke every hour on the hour during waking hours and not pair the cigarette with a normal activity such as coffee or driving as he or she normally would have. Patient was instructed to do this for a week and then cut back to smoking one cigarette every other hour for the second week, then cut back to smoking a cigarette every third hour on the third week, and quit on week 4. I instructed patient when starting this method to not smoke any more cigarettes than they normally would have smoked in a day and if they smoke 20 cigarettes per day to set those cigarettes out aheadof time and space them out evenly throughout the day to ensure they aren't increasing their cigarette consumption. Oral Substitutes/Hydration Drinking water is a superb coping technique. Snacking on crunchy, nutrient dense, low calorie foodssuch as chopped peppers, celery, or carrots can be extremely helpful. Using cinnamon sticks, plastic straws, and sugarless gum/ candy are also excellent oral substitutes. Phone [phone] ([phone]) as additional resource. The patient is currently not ready to quit. I personally spent 5 minutes in counseling. The time spent in smoking cessation counseling is exclusive of any other counseling during this visit. 3. Asthma with chronic obstructive pulmonary disease (COPD) ([facility]) - ICD9: 493.20, ICD10: J44.9 -Continue Breztri HFA daily. Rinse/gargle mouth after each use to prevent oral thrush. - Continue Albuterol HFA inhaler, 2 inhalations 10-15 minutes prior to activities associated with shortness of breath, and as needed for rescue relief of shortness of breath, cough or wheezing, up to4 times daily as needed. - Start Mucinex 600 mg twice daily for 2 weeks then as needed to facilitate mucus clearance - Advised follow up with pulmonology, has missed follow up, followed with PCP 4. Lung nodules - ICD9: 793.19, ICD10: R91.8 MELANI nodules < 5 mm noted on last Ldct scan 11/2021, in the interval completed CTA chest PE done [place], will retrieve images. I spent a total of 30 minutes on the date of the service which included preparing to see the patient, [id number] patient care, completing clinical documentation, obtaining and/or reviewing separately obtained history, performing a medically appropriate examination, counseling and educating the pat ient/family/caregiver, ordering medications, tests, or procedures, communicating with other HCPs (not separately reported), and communicating results to the patient/family/caregiver. Sarita Payne APRN.CNP NPI #: December 23, 2022 10:56 AM documented in this encounterW[facility]04-27-2023 Miscellaneous Notes* Telephone Encounter - Vanessa Capone Ma - 12/17/2022 10:04 AM EDT Faxed. Vanessa Capone Ma * Telephone Encounter - Vanessa Capone Ma - 12/15/2022 3:50 PM EDT Type of letter/form/fax request - Order for nebulizer and supplies for COPD Form received from fax on 1 floor and placed on MD desk (Dr. Seals) for completion. Completed form needs to be faxed to [facility] at [phone]. Last OV 09/05/22. Route to [place] when form completed for processing documented in this encounterWooster [facility]02-16-2023 Miscellaneous Notes* Telephone Encounter - Jocelyn Perez APRN.CNP - 10/08/2022 2:18 PM EST ERROR documented in this encounterWooster [facility] Hospital01-16-2023 Miscellaneous Notes* Telephone Encounter - Vanessa Capone Ma - 09/07/2022 1:12 PM EST Tried to reach pt at home number but it is not a working number. Called [facility] phone however VM is fulland not able to leave any messages. Letter mailed to pt home notifying pt to call the office for below results. Vanessa Capone Ma * Telephone Encounter - Kaushik Seals MD - 09/07/2022 12:49 PM EST Please notify patient that his lab results show that his diabetes is well controlled. His thyroid test is high, so he need to be taking his thyroid medications. Stay on the same medications and recheck in 6 months as planned Kaushik Seals MD documented in this encounterWooster [facility] Hospital01-14-2023 History of Present illness Narrative* Kaushik Seals MD - 09/05/2022 10:40 AM EST Chief Complaint Patient presents with: Physical HPI Lucas Mccabe is a 57 year old male who presents here today for a routine follow up. Pt here today for routine follow up. Pt is non compliant. Has not been seen in the office in 1.5 years. Pt requested medication refills and this was denied due to pt not being seen. Pt unsure if he'staking all his medications, but wants everything refilled. Our records show that he should have refills available. Pt recollection of time is not good. What he thinks is days/weeks is years. Pt offered to be taken out of visit in a wheelchair, this was declined. He prefers to do it himself. GERD - Prescribed Omeprazole 40 mg once daily. Thyroid - Prescribed Levothyroxine 200 mcg daily. DM - Denies checking sugars at home, but is able to tell if his sugars are high or low. Taking Gabapentin 300 mg 1 caps at bedtime and Cymbalta 60 mg bid for neuropathy pain. For DM pt taking Metformin 500 mg 2 tabs po in the am. Depression - Takes Cymbalta 60 mg bid. Believes he's been out of his medication which is the reasonwhy he's depressed. Also due to being in a lot of pain. HTN - Denies checking BP at home. Reports he always has chest pain, sob and dizziness. Feels this is worse when he lays down. Has sob due to hx of COPD and Asthma. On current regimen of Lisinopril 10mg once daily. Pain - Chronic all over body pain. Pt complaining of back pain that he's not able to get comfortable with. Sons dog recently hurt his ankle. Out of Ibuprofen. Taking Cymbalta 60 mg bid. Uses a cane to ambulate. Edema - Currently taking Lasix 40 mg for b/l LLE edema. DVT - Taking Eliquis 5 mg bid. Lipids - Taking Lipitor 10 mg once daily. Pt states that he's lost weight, generally his weight is around 360 lbs. Denies really watching his diet. Vertigo - hx of vertigo, uses medication prn. Pulm - Follows with Pulmonary. Pt smoking 1-2 ppd, doesn't plan on quitting. HM - Declined Covid vaccine. Declined flu shot. Past medical history, appointments, medications, allergies reviewed. Previous Medical History PAST MEDICAL HISTORY Diagnosis Date Chronic pain Displacement of intervertebral disc, site unspecified, without myelopathy 05/06/2005 DVT (deep venous thrombosis) ([facility]) Esophageal reflux Factor V Leiden mutation ([facility]) Generalized osteoarthrosis, unspecified site Hypothyroidism Myalgia and myositis, unspecified Neuralgia, neuritis, and radiculitis, unspecified Obesity, unspecified LEONEL (obstructive sleep apnea) Pulmonary embolism ([facility]) 03/2020 Spondylosis of unspecified site without mention of myelopathy Thoracic or lumbosacral neuritis or radiculitis, unspecified 04/01/2005 Type 2 diabetes mellitus ([facility]) Unspecified essential hypertension Previous Surgical History PAST SURGICAL HISTORY Procedure Laterality Date ARTHROSCOPY KNEE DIAGNOSTIC W/WO SYNOVIAL BX SPX 04/17/2003 Arthroscopy, knee, right knee COLONOSCOPY FLX DX W/COLLJ SPEC WHEN PFRMD 05/21/2014 Colonoscopy COLONOSCOPY FLX DX W/COLLJ SPEC WHEN PFRMD 05/27/15 Colonoscopy ESOPHAGOGASTRODUODENOSCOPY TRANSORAL DIAGNOSTIC 05/21/2014 EGD Family History FAMILY HISTORY Problem Relation Age of Onset Diabetes Mother Hypertension Mother Cancer Mother pancreas Lung Cancer Mother Heart Father COPD Sister other (breathing issues) Sister Factor 5 Leiden Sister Patient Allergies ALLERGIES Allergen Reactions Latex Intolerance Headache, dizzy, trouble breathing Zomig [Zolmitriptan] Mental Status Change Current Medications Current Outpatient Medications on File Prior to Visit Medication Sig atorvastatin (LIPITOR) 10 mg tablet Take 1 tablet by mouth once daily. apixaban (ELIQUIS) 5 mg tab(s) Take 1 tablet by mouth twice daily. furosemide (LASIX) 40 mg tablet Take 1 tablet by mouth once daily. metFORMIN (GLUCOPHAGE) 500 mg tablet Take 2 tablets by mouth daily with breakfast. albuterol HFA (VENTOLIN HFA) 90 mcg/actuation inhaler INHALE 2 PUFFS ORALLY DIRECTED EVERY 4 HOURS NEEDED levothyroxine (SYNTHROID) 200 mcg tablet Take 1 tablet by mouth once daily. Take on empty stomach. For Thyroid. DULoxetine (CYMBALTA) 60 mg capsule TAKE 1 CAPSULE BY MOUTH TWICE DAILY BREZTRI AEROSPHERE 160-9-4.8 mcg/actuation HFA aerosol inhaler INHALE 2 PUFFS ORALLY TWICE DAILY ASDIRECTED gabapentin (NEURONTIN) 300 mg capsule TAKE 1 CAPSULE BY MOUTH EVERY NIGHT AT BEDTIME omeprazole (PRILOSEC) 40 mg capsule Take 1 capsule by mouth once daily. Lancets lancets Test blood sugar(s) 1 times daily. Dx: Type 2 DM - Uncontrolled E11.65 Insulin: No blood sugar diagnostic (BLOOD GLUCOSE TEST) test strip Test blood sugar(s) 1 times daily. Dx: Type 2 DM - Uncontrolled E11.65 Insulin: No glimepiride (AMARYL) 2 mg tablet Take 1 tablet by mouth daily with breakfast. meclizine (ANTIVERT) 25 mg tab Take 1 tablet by mouth twice daily as needed (dizziness). meloxicam (MOBIC) 15 mg tablet Take 1 tablet by mouth once daily. Take with food. lisinopril (ZESTRIL, PRINIVIL) 20 mg tablet Take 1 tablet by mouth once daily. No current facility-administered medications on file prior to visit. Social History Social History Tobacco Use Smoking status: Every Day Packs/day: 2.00 Years: 42.00 Pack years: 84.00 Types: Cigarettes, Cigars Start date: 08/23/1978 Smokeless tobacco: Former Tobacco comments: smokes Cigars blackand maloney and cigarettes 2 ppd smoker Substance Use Topics Alcohol use: Yes Comment: 6 pack per year Drug use: No EXAM: There were no vitals taken for this visit. General Appearance: Unkempt, NAD, alert. Lungs: Lungs clear to auscultation. No wheezing, rhonchi, rales.. Heart: RRR without murmur, gallop, or rubs. No ectopy. Health Maintenance List HEPATITIS B(1 of 3 - 3-dose series) Never done COVID-19 VACCINE(1) Never done ALPHA-1 ANTITRYPSIN DEFICIENCY SCREENING Never done PNEUMOCOCCAL(2 - PCV) due on 06/24/2012 SHINGRIX VACCINE(1 of 2) Never done PROSTATE CANCER SCREENING DISCUSSION Never done DILATED RETINAL EXAM due on 08/09/2019 URINE ALBUMIN:CREATININE RATIO due on 09/20/2019 DIABETIC FOOT EXAM due on 01/05/2020 BP CONTROLLED (<130/80) due on 01/05/2020 COLORECTAL CANCER SCREENING due on 05/27/2020 HBA1C due on 05/03/2021 LDL CHOLESTEROL due on 01/31/2022 ANNUAL PCP TEAM CHRONIC DISEASE VISIT due on 02/19/2022 INFLUENZA(1) due on 04/23/2022 DEPRESSION ASSESSMENT Never done LUNG CANCER SCREENING due on 12/16/2022 DTAP,TDAP,TD(2 - Td or Tdap) due on 07/10/2029 SPIROMETRY Completed HEPATITIS C SCREENING Completed HIV SCREENING Discontinued Data reviewed None ASSESSMENT/PLAN: 1. Essential hypertension - ICD9: 401.9, ICD10: I10 (primary diagnosis) - good control - Continue current medication(s) - Goal of BP <140/90 - COMP METABOLIC PANEL - CBC - LIPID PANEL, NONFASTING 2. Acute pulmonary embolism, unspecified pulmonary embolism type, unspecified whether acute cor pulmonale present (HCC) - ICD9: 415.19, ICD10: I26.99 Continue current medications. - APIXABAN 5 MG TABLET 3. Venous insufficiency - ICD9: 459.81, ICD10: I87.2 - FUROSEMIDE 40 MG TABLET 4. Cellulitis of lower extremity, unspecified laterality - ICD9: 682.6, ICD10: L03.119 - FUROSEMIDE 40 MG TABLET 5. Type 2 diabetes, controlled, with neuropathy (HCC) - ICD9: 250.60, 357.2, ICD10: E11.40 Poor adherence to plan of care. - Continue current medications - METFORMIN 500 MG TABLET - GABAPENTIN 300 MG CAPSULE - COMP METABOLIC PANEL - HGB A1C - LIPID PANEL, NONFASTING 6. Chronic obstructive pulmonary disease, unspecified COPD type (HCC) - ICD9: 496, ICD10: J44.9 - ALBUTEROL SULFATE HFA 90 MCG/ACTUATION AEROSOL INHALER - CBC 7. Acquired hypothyroidism - ICD9: 244.9, ICD10: E03.9 - Instructed patient on importance of taking on an empty stomach either first thing in the morning or at bedtime. - continue current dose of Synthroid 200 mcg - LEVOTHYROXINE 200 MCG TABLET - TSH BLD - CBC 8. Centrilobular emphysema (HCC) - ICD9: 492.8, ICD10: J43.2 - BREZTRI AEROSPHERE 160 MCG-9MCG-4.8MCG/ACTUATION HFA AEROSOL INHALER 9. DDD (degenerative disc disease), lumbar - ICD9: 722.52, ICD10: M51.36 - Add Celebrex for pain - GABAPENTIN 300 MG CAPSULE 10. Chronic pain syndrome - ICD9: 338.4, ICD10: G89.4 - GABAPENTIN 300 MG CAPSULE 11. BPPV (benign paroxysmal positional vertigo), unspecified laterality - ICD9: 386.11, ICD10: H81.10 - MECLIZINE 25 MG TABLET 12. Acute right ankle pain - ICD9: 719.47, 338.19, ICD10: M25.571 Differential confirmed by visual scan of peripheral blood smear slide. Ordered for today; notify ofresults Follow up in 6 months Medical Decision Making: Problems: Moderate: 2+ stable chronic illnesses Data: Unique test(s) ordered: 3+ Risk: Moderate: Drug management Medical Decision Making Level: 4 - Moderate Kaushik Seals MD documented [facility]23 Miscellaneous Notes* Telephone Encounter - Micky Cabezas APRN.DIRECTOR HAIR - 09/04/2022 2:34 PM EST Needs appt, has upcoming appointment tomorrow. The following approved medication requests have been transmitted electronically. Requested Prescriptions Refused Prescriptions Disp Refills albuterol HFA (VENTOLIN HFA) 90 mcg/actuation inhaler 18 g 11 Sig: INHALE 2 PUFFS ORALLY DIRECTED EVERY 4 HOURS NEEDED apixaban (ELIQUIS) 5 mg tab(s) 60 tablet 1 Sig: Take 1 tablet by mouth twice daily. atorvastatin (LIPITOR) 10 mg tablet 31 tablet 11 Sig: Take 1 tablet by mouth once daily. omeprazole (PRILOSEC) 40 mg capsule 31 capsule 5 Sig: Take 1 capsule by mouth once daily. metFORMIN (GLUCOPHAGE) 500 mg tablet 60 tablet 11 Sig: Take 2 tablets by mouth daily with breakfast. meloxicam (MOBIC) 15 mg tablet 30 tablet 0 Sig: Take 1 tablet by mouth once daily. Take with food. meclizine (ANTIVERT) 25 mg tab 20 tablet 0 Sig: Take 1 tablet by mouth twice daily as needed (dizziness). lisinopril (ZESTRIL, PRINIVIL) 20 mg tablet 31 tablet 11 Sig: Take 1 tablet by mouth once daily. levothyroxine (SYNTHROID) 200 mcg tablet 30 tablet 11 Sig: Take 1 tablet by mouth once daily. Take on empty stomach. For Thyroid. Lancets lancets 100 Each 11 Sig: Test blood sugar(s) 1 times daily. Dx: Type 2 DM - Uncontrolled E11.65 Insulin: No glimepiride (AMARYL) 2 mg tablet 30 tablet 11 Sig: Take 1 tablet by mouth daily with breakfast. gabapentin (NEURONTIN) 300 mg capsule 31 capsule 11 Sig: Take 1 capsule by mouth daily at bedtime for 31 days. furosemide (LASIX) 40 mg tablet 30 tablet 5 Sig: Take 1 tablet by mouth once daily. DULoxetine (CYMBALTA) 60 mg capsule 62 capsule 11 Sig: Take 1 capsule by mouth twice daily. zfpxdvdbdz-otafmxwq-hgjaheiotv (BREZTRI AEROSPHERE) 160-9-4.8 mcg/actuation HFA aerosol inhaler 10.7 g 11 blood sugar diagnostic (BLOOD GLUCOSE TEST) test strip 50 Strip 11 Sig: Test blood sugar(s) 1 times daily. Dx: Type 2 DM - Uncontrolled E11.65 Insulin: No Micky Cabezas APRN.CNP * Telephone Encounter - Ej Kirkland - 09/04/2022 2:30 PM EST Patient has been identified by name and date of : Yes Last office visit in this department: 02/19/2021 RX INSTRUCTIONS: Patient aware RX will be sent to pharmacy. No need to notify patient. Patient phones requesting refills as follows: Requested Prescriptions Pending Prescriptions Disp Refills albuterol HFA (VENTOLIN HFA) 90 mcg/actuation inhaler 18 g 11 Sig: INHALE 2 PUFFS ORALLY DIRECTED EVERY 4 HOURS NEEDED apixaban (ELIQUIS) 5 mg tab(s) 60 tablet 1 Sig: Take 1 tablet by mouth twice daily. atorvastatin (LIPITOR) 10 mg tablet 31 tablet 11 Sig: Take 1 tablet by mouth once daily. omeprazole (PRILOSEC) 40 mg capsule 31 capsule 5 Sig: Take 1 capsule by mouth once daily. metFORMIN (GLUCOPHAGE) 500 mg tablet 60 tablet 11 Sig: Take 2 tablets by mouth daily with breakfast. meloxicam (MOBIC) 15 mg tablet 30 tablet 0 Sig: Take 1 tablet by mouth once daily. Take with food. meclizine (ANTIVERT) 25 mg tab 20 tablet 0 Sig: Take 1 tablet by mouth twice daily as needed (dizziness). lisinopril (ZESTRIL, PRINIVIL) 20 mg tablet 31 tablet 11 Sig: Take 1 tablet by mouth once daily. levothyroxine (SYNTHROID) 200 mcg tablet 30 tablet 11 Sig: Take 1 tablet by mouth once daily. Take on empty stomach. For Thyroid. Lancets lancets 100 Each 11 Sig: Test blood sugar(s) 1 times daily. Dx: Type 2 DM - Uncontrolled E11.65 Insulin: No glimepiride (AMARYL) 2 mg tablet 30 tablet 11 Sig: Take 1 tablet by mouth daily with breakfast. gabapentin (NEURONTIN) 300 mg capsule 31 capsule 11 Sig: Take 1 capsule by mouth daily at bedtime for 31 days. furosemide (LASIX) 40 mg tablet 30 tablet 5 Sig: Take 1 tablet by mouth once daily. DULoxetine (CYMBALTA) 60 mg capsule 62 capsule 11 Sig: Take 1 capsule by mouth twice daily. ffrofpdppd-sgnzwlyx-zofpheucha (BREZTRI AEROSPHERE) 160-9-4.8 mcg/actuation HFA aerosol inhaler 10.7 g 11 blood sugar diagnostic (BLOOD GLUCOSE TEST) test strip 50 Strip 11 Sig: Test blood sugar(s) 1 times daily. Dx: Type 2 DM - Uncontrolled E11.65 Insulin: No Please review and advise. Ej Kirkland documented in this encounterW[facility]09-19-2022 Miscellaneous Notes* Telephone Encounter - Kaushik Seals MD - 05/11/2022 5:58 PM EDT Noted Kaushik Seals MD * Telephone Encounter - Anh Holcomb RN - 04/30/2022 4:03 PM EDT Patito from [facility] called in and reports they faxed over a medication adherence form to providers office. She states the Pt is over due on picking up a lot of his medications. She states the last time he picked up a medication it was a rescue inhaler in February. Pt was last seen by this provider on 02/19/21. Called and left a message with Pts sister to have him call [facility] about medications and providers office about setting up and appointment. documented in this encounterWooster [facility]06-23-2022 Miscellaneous Notes* Telephone Encounter - Kaushik Seals MD - 02/12/2022 11:57 AM EDT OK to refill as ordered Kaushik Seals MD * Telephone Encounter - Raman Feldman RN - 02/12/2022 11:41 AM EDT Patient has been identified by name and date of : Yes Pharmacy phones for refill(s): Pending Prescriptions Disp Refills ATORVASTATIN 10 MG TABLET 31 tablet 11 Sig: Take 1 tablet by mouth once daily. ERICH: No Date of last office visit with pcp: 02-19-21. Next appt: None Last 2 Encounter Wt Readings: Date: Wt: 12/02/2021 134.4 kg (296 lb 4.8 oz) 04/04/2021 145.2 kg (320 lb) Previous labs/tests for medication: Cholesterol: HDL Cholesterol (mg/dL) Date Value 01/31/2021 30 LDL Cholesterol (mg/dL) Date Value 01/31/2021 77 ALT (U/L) Date Value 01/31/2021 27 Non HDL Cholesterol (mg/dL) Date Value 01/31/2021 110 Please advise. Thank you. Raman Feldman RN documented in this encounterWo[facility]06-22-2022 Hospital Discharge instructions Additional Instructions Increase your Eliquis to 10 mg (2 tablets) twice daily for the next week then return to 5 mg (1 tablet) twice daily. Follow-up with your primary care physician in 3 to 5 days. Return to the emergency department if you develop any chest pain or shortness of breath. [facility] Work Phone: 1(190) 425-484004-27-2022 Miscellaneous Notes* Telephone Encounter - Sarita Payne APRN.CNP - 12/17/2021 10:26 AM EDT Attempted to call pt no answer, unable to leave message. Mobile # listed is not the pt's contact. LDCT Results mailed. Sarita Payne APRN.CNP documented in this encounterWooster [facility]04-26-2022 NoteHNO ID: [id number] Author: SONALI Moya Service: Radiology Author Type: Technologist Type: Progress Notes Filed: 12/16/2021 4:12 PM Note Text: Radiology Service Progress Note PATIENT NAME: Lucas Mccabe DATE OF SERVICE: December 16, 2021 TIME: 4:12 PM PATIENT IDENTITY VERIFICATION COMPLETED USING TWO (2) IDENTIFIERS: Name and Date of confirmed by patient verbally and Name and Date of confirmed by identification band. FALL SCREENING: Has the patient had 2 falls in the last year or 1 fall with injury or currently using an Ambulatory Assistive Device (Walker, Cane, Wheelchair, Crutches, etc.)? No PATIENT GENDER DATA: Male PATIENT RELEVANT IMPLANT DATA REVIEWED: Not Applicable RADIOLOGY DEPARTMENT: CT; Exam(s) Completed: Chest PERIPHERAL IV DATA: Not applicable SIGNED BY: SONALI Moya December 16, 2021 4:12 PMMagruder [id number] Miscellaneous Notes* Telephone Encounter - Vanessa Capone Ma - 12/16/2021 4:41 PM EDT Faxed. Vanessa Capone Ma * Telephone Encounter - Vanessa Capone Ma - 12/15/2021 3:16 PM EDT Type of letter/form/fax request - orders re: COPD Form received from fax on 1 floor and placed on MD desk (Dr. Seals) for completion. Completed form needs to be faxed to [facility] at . Route to [place] when form completed for processing Pt follows with Pulm, Georgie Barreto, saw pt 04/04/21. Last OV with PCP was 02/19/21 documented in this encounterWooster [facility]04-26-2022 History of Present illness Narrative* SONALI Moya - 12/16/2021 4:30 PM EDT Radiology Service Progress Note PATIENT NAME: Lucas Mccabe DATE OF SERVICE: December 16, 2021 TIME: 4:12 PM PATIENT IDENTITY VERIFICATION COMPLETED USING TWO (2) IDENTIFIERS: Name and Date of confirmedby patient verbally and Name and Date of confirmed by identification band. FALL SCREENING: Has the patient had 2 falls in the last year or 1 fall with injury or currently using an Ambulatory Assistive Device (Walker, Cane, Wheelchair, Crutches, etc.)? No PATIENT GENDER DATA: Male PATIENT RELEVANT IMPLANT DATA REVIEWED: Not Applicable RADIOLOGY DEPARTMENT: CT; Exam(s) Completed: Chest PERIPHERAL IV DATA: Not applicable SIGNED BY: SONALI Moya December 16, 2021 4:12 PM documented in this encounterWooster [facility] Hospital04-22-2022 Miscellaneous Notes* Telephone Encounter - Roxy Toth - 12/12/2021 11:17 AM EDT This was a patient of Dr Glasgow, and needs to establish care with a provider for further refills Thanks Dr Bae Called patient and could not get through to inform him. Called sister and received no answer. * Telephone Encounter - SONALI Ramírez - 12/11/2021 11:26 AM EDT Pharmacy called. Patient asking for refill for omeprazole SONALI Ramírez documented in this encounterWooster [facility] Hospital04-18-2022 History of Present illness Narrative* Margarita Cuevas Ma - 12/08/2021 1:27 PM EDT POPULATION HEALTH NAVIGATION OUTREACH Action/FYI Pt was left a message to return call. Will need to schedule a follow up with pcp or aircraft landing gear inspector. Pt identified by name and : YES, via phone Outreach Outcome/Action Unable to reach patient: Left message Reason for Outreach Care Gap or Scheduling/Wellness visits Payer: [facility] / Plan: [facility] MEDIC[facility] / Product Type: Medicare / Care Gap Reviewed:: Follow-up appointment Reminder: Reminder note to check Health Maintenance for items below Health Maintenance items due: COVID-19 VACCINE(1) Never done SHINGRIX VACCINE(1 of 2) Never done PROSTATE CANCER SCREENING DISCUSSION Never done LUNG CANCER SCREENING Never done DILATED RETINAL EXAM due on 08/09/2019 URINE ALBUMIN:CREATININE RATIO due on 09/20/2019 DIABETIC FOOT EXAM due on 01/05/2020 BP CONTROLLED (<130/80) due on 01/05/2020 COLORECTAL CANCER SCREENING due on 05/27/2020 HBA1C due on 05/03/2021 Message Sent to Practice: Yes Navigation Signature: Margarita Cuevas Ma December 08, 2021 1:27 PM documented in this encounterWo[facility]04-18-2022 History of Present illness Narrative* Margarita Cuevas Ma - 12/08/2021 1:26 PM EDT See pt outreach enc. * Micky Cabezas APRN.CNP - 12/08/2021 11:32 AM EDT STAMP Please reach out to patient for overdue appointment for chronic disease management with myself, , or Shaye Dobbins. Labs are ordered. If he/she is no longer following with Dr. Seals, please remove name from PCP field. Micky Cabezas APRN.CNP documented in this encounterWo[facility]04-01-2022 Miscellaneous Notes* Telephone Encounter - Vanessa Capone Ma - 11/21/2021 11:58 AM EDT The following approved medication requests have been transmitted electronically. Signed Prescriptions Disp Refills apixaban (ELIQUIS) 5 mg tab(s) 60 tablet 1 Sig: Take 1 tablet by mouth twice daily. ERICH: No Authorizing Provider: KAUSHIK SEALS furosemide (LASIX) 40 mg tablet 30 tablet 5 Sig: Take 1 tablet by mouth once daily. ERICH: No Authorizing Provider: KAUSHIK SEALS metFORMIN (GLUCOPHAGE) 500 mg tablet 60 tablet 11 Sig: Take 2 tablets by mouth daily with breakfast. ERICH: No Authorizing Provider: KAUSHIK SEALS albuterol HFA (VENTOLIN HFA) 90 mcg/actuation inhaler 18 g 11 Sig: INHALE 2 PUFFS ORALLY DIRECTED EVERY 4 HOURS NEEDED ERICH: No Authorizing Provider: KAUSHIK SEALS levothyroxine (SYNTHROID) 200 mcg tablet 30 tablet 11 Sig: Take 1 tablet by mouth once daily. Take on empty stomach. For Thyroid. ERICH: No Authorizing Provider: KAUSHIK SEALS Ma * Telephone Encounter - Kaushik Seals MD - 11/21/2021 11:53 AM EDT OK to refill as ordered Kaushik Seals MD * Telephone Encounter - Vanessa Capone Ma - 11/21/2021 11:42 AM EDT Last office visit: 02/19/21 F/u scheduled: none, pt no showed for appt on 06/09/21 Vanessa Capone Ma * Telephone Encounter - Jennifer Camargo - 11/21/2021 11:34 AM EDT Patient has been identified by name and date of : Yes Pending Prescriptions Disp Refills APIXABAN 5 MG TABLET 60 tablet 1 Sig: Take 1 tablet by mouth twice daily. ERICH: No FUROSEMIDE 40 MG TABLET 30 tablet 5 Sig: Take 1 tablet by mouth once daily. ERICH: No METFORMIN 500 MG TABLET 60 tablet 11 Sig: Take 2 tablets by mouth daily with breakfast. ERICH: No ALBUTEROL SULFATE HFA 90 MCG/ACTUATION AEROSOL INHALER 18 g 11 Sig: INHALE 2 PUFFS ORALLY DIRECTED EVERY 4 HOURS NEEDED ERICH: No LEVOTHYROXINE 200 MCG TABLET 30 tablet 11 Sig: Take 1 tablet by mouth once daily. Take on empty stomach. For Thyroid. ERICH: No RX INSTRUCTIONS: Patient aware RX will be sent to pharmacy. No need to notify patient. Jennifer Camargo documented in this encounterWooster [facility] Hospital03-21-2022 Miscellaneous Notes* Telephone Encounter - Ashely Sanchez LPN - 11/10/2021 4:[address] [facility] 02-19-21 Pharmacy and Rx request verified. Please file if appropriate. Thank you Ashely Sanchez LPN * Telephone Encounter - Adryan Higginbotham - 11/10/2021 3:19 PM EDT Patient has been identified by name and date of : Yes Pharmacy phoned to request the following prescription(s) If there are any questions regarding this prescription request, call on cell at: [phone] (home) [phone] (cell) RX INSTRUCTIONS: Patient aware RX will be sent to pharmacy. No need to notify patient. Date of last refill: 05/09/21 Date of last office visit: N/A Date of last [facility] visit: Visit date not found Date of future office visit: Not Scheduled Pending Prescriptions Disp Refills OMEPRAZOLE 40 MG CAPSULE,DELAYED RELEASE 31 capsule 5 Sig: Take 1 capsule by mouth once daily. ERICH: No Prescriptions are usually addressed within 24-48 business hours. If patient states they cannot [id number] business hours, please document details. Last 2 Encounter Wt Readings: Date: Wt: 04/04/2021 145.2 kg (320 lb) 04/04/2021 145.2 kg (320 lb) Last 2 Encounter BP Readings: Date: BP: 04/04/2021 122/74 02/19/2021 128/80 CMP: Glucose 267 01/31/2021 BUN 18 01/31/2021 Creatinine 0.71 01/31/2021 Sodium 137 01/31/2021 Potassium 4.1 01/31/2021 Chloride 98 01/31/2021 CO2 27 01/31/2021 Protein, Total 7.0 01/31/2021 Albumin 4.0 01/31/2021 Calcium 9.3 01/31/2021 Alkaline Phosphatase 132 01/31/2021 Bilirubin, Total 0.6 01/31/2021 AST 23 01/31/2021 ALT 27 01/31/2021 Adryan Higginbotham Pharmacist Dariana [phone] documented in this encounterWooster [facility] Hospital10-14-2014 History of Past illness Narrative* Problem Noted Date Resolved Date DM type 2 (diabetes mellitus, type 2) 06/05/2014 06/18/2015 DM Neuro Manif Type II 11/14/2009 4 DM w/o Complication Type II 11/07/200902/20 documented as of this encounter (statuses as of 11/21/2021) [facility] illness Narrative* Problem Noted Date Resolved Date DM type 2 (diabetes mellitus, type 2) 06/05/2014 06/18/2015 DM Neuro Manif Type II 11/14/2009 4 DM w/o Complication Type II 11/07/200902/20 documented as of this encounter (statuses as of 12/08/2021) [facility] Narrative* Problem Noted Date Resolved Date DM type 2 (diabetes mellitus, type 2) 06/05/2014 06/18/2015 DM Neuro Manif Type II 11/14/2009 4 DM w/o Complication Type II 11/07/200902/20 documented as of this encounter (statuses as of 12/16/2021) [facility] Narrative* Problem Noted Date Resolved Date DM type 2 (diabetes mellitus, type 2) 06/05/2014 06/18/2015 DM Neuro Manif Type II 11/14/2009 4 DM w/o Complication Type II 11/07/200902/20 documented as of this encounter (statuses as of 12/17/2021) [facility] Narrative* Problem Noted Date Resolved Date DM type 2 (diabetes mellitus, type 2) 06/05/2014 06/18/2015 DM Neuro Manif Type II 11/14/2009 4 DM w/o Complication Type II 11/07/200902/20 documented as of this encounter (statuses as of 12/17/2021) [facility] Narrative* Problem Noted Date Resolved Date DM type 2 (diabetes mellitus, type 2) 06/05/2014 06/18/2015 DM Neuro Manif Type II 11/14/2009 4 DM w/o Complication Type II 11/07/200902/20 documented as of this encounter (statuses as of 12/19/2021) [facility] Narrative* Problem Noted Date Resolved Date DM type 2 (diabetes mellitus, type 2) 06/05/2014 06/18/2015 DM Neuro Manif Type II 11/14/2009 4 DM w/o Complication Type II 11/07/200902/20 documented as of this encounter (statuses as of 12/19/2021) [facility] Narrative* Problem Noted Date Resolved Date DM type 2 (diabetes mellitus, type 2) 06/05/2014 06/18/2015 DM Neuro Manif Type II 11/14/2009 4 DM w/o Complication Type II 11/07/200902/20 documented as of this encounter (statuses as of 02/12/2022) [facility] Narrative* Problem Noted Date Resolved Date DM type 2 (diabetes mellitus, type 2) 06/05/2014 06/18/2015 DM Neuro Manif Type II 11/14/2009 4 DM w/o Complication Type II 11/07/200902/20 documented as of this encounter (statuses as of 05/11/2022) [facility] Narrative* Problem Noted Date Resolved Date DM type 2 (diabetes mellitus, type 2) 06/05/2014 06/18/2015 DM Neuro Manif Type II 11/14/2009 4 DM w/o Complication Type II 11/07/200902/20 documented as of this encounter (statuses as of 09/04/2022) [facility] Narrative* Problem Noted Date Resolved Date DM type 2 (diabetes mellitus, type 2) 06/05/2014 06/18/2015 DM Neuro Manif Type II 11/14/2009 4 DM w/o Complication Type II 11/07/200902/20 documented as of this encounter (statuses as of 09/05/2022) [facility] Narrative* Problem Noted Date Resolved Date DM type 2 (diabetes mellitus, type 2) 06/05/2014 06/18/2015 DM Neuro Manif Type II 11/14/2009 4 DM w/o Complication Type II 11/07/200902/20 documented as of this encounter (statuses as of 09/16/2022) [facility] Narrative* Problem Noted Date Resolved Date DM type 2 (diabetes mellitus, type 2) 06/05/2014 06/18/2015 DM Neuro Manif Type II 11/14/2009 4 DM w/o Complication Type II 11/07/200902/20 documented as of this encounter (statuses as of 10/08/2022) [facility] Narrative* Problem Noted Date Resolved Date DM type 2 (diabetes mellitus, type 2) 06/05/2014 06/18/2015 DM Neuro Manif Type II 11/14/2009 4 DM w/o Complication Type II 11/07/200902/20 documented as of this encounter (statuses as of 10/08/2022) [facility] Narrative* Problem Noted Date Resolved Date DM type 2 (diabetes mellitus, type 2) 06/05/2014 06/18/2015 DM Neuro Manif Type II 11/14/2009 4 DM w/o Complication Type II 11/07/200902/20 documented as of this encounter (statuses as of 12/17/2022) [facility] Narr[facility]* Problem Noted Date Resolved Date DM type 2 (diabetes mellitus, type 2) 06/05/2014 06/18/2015 DM Neuro Manif Type II 11/14/2009 4 DM w/o Complication Type II 11/07/200902/20 documented as of this encounter (statuses as of 12/23/2022) [facility]2014 History of Past illness Narrative* Problem Noted Date Resolved Date DM type 2 (diabetes mellitus, type 2) 06/05/2014 06/18/2015 DM Neuro Manif Type II 11/14/2009 4 DM w/o Complication Type II 11/07/200902/20 documented as of this encounter (statuses as of 12/23/2022) [facility]2014 History of Past illness Narrative* Problem Noted Date Diagnosed Date Resolved Date DM type 2 (diabetes mellitus, type 2) 06/05/2014 06/18/2015 BMI 45.0-49.9, adult 06/05/2014 023 DM Neuro Manif Type II 11/14/200906/05 DM w/o Complication Type II 11/07/2009 03/05/2014 Obesity, Class III, BMI 40-4 9.9 (morbid obesity) 03/05/2023 documented as of this encounter (statuses as of 03/05/2023) [facility] History of Past illness Narrative* Problem Noted Date Diagnosed Date Resolved Date DM type 2 (diabetes mellitus, type 2) 06/05/2014 06/18/2015 BMI 45.0-49.9, adult 06/05/2014 023 DM Neuro Manif Type II 11/14/200906/05 DM w/o Complication Type II 11/07/2009 03/05/2014 Obesity, Class III, BMI 40-4 9.9 (morbid obesity) 03/05/2023 documented as of this encounter (statuses as of 03/09/2023) [facility] History of Past illness Narrative* Problem Noted Date Diagnosed Date Resolved Date DM type 2 (diabetes mellitus, type 2) 06/05/2014 06/18/2015 BMI 45.0-49.9, adult 06/05/2014 023 DM Neuro Manif Type II 11/14/200906/05 DM w/o Complication Type II 11/07/2009 03/05/2014 Obesity, Class III, BMI 40-4 9.9 (morbid obesity) 03/05/2023 documented as of this encounter (statuses as of 03/10/2023) [facility] History of Past illness Narrative* Problem Noted Date Diagnosed Date Resolved Date DM type 2 (diabetes mellitus, type 2) 06/05/2014 06/18/2015 BMI 45.0-49.9, adult 06/05/2014 023 DM Neuro Manif Type II 11/14/200906/05 DM w/o Complication Type II 11/07/2009 03/05/2014 Obesity, Class III, BMI 40-4 9.9 (morbid obesity) 03/05/2023 documented as of this encounter (statuses as of 03/11/2023) [facility] History of Past illness Narrative* Problem Noted Date Diagnosed Date Resolved Date DM type 2 (diabetes mellitus, type 2) 06/05/2014 06/18/2015 BMI 45.0-49.9, adult 06/05/2014 023 DM Neuro Manif Type II 11/14/200906/05 DM w/o Complication Type II 11/07/2009 03/05/2014 Obesity, Class III, BMI 40-4 9.9 (morbid obesity) 03/05/2023 documented as of this encounter (statuses as of 07/08/2023) [facility] History of Past illness Narrative* Problem Noted Date Diagnosed Date Resolved Date DM type 2 (diabetes mellitus, type 2) 06/05/2014 06/18/2015 BMI 45.0-49.9, adult 06/05/2014 023 DM Neuro Manif Type II 11/14/200906/05 DM w/o Complication Type II 11/07/2009 03/05/2014 Obesity, Class III, BMI 40-4 9.9 (morbid obesity) 03/05/2023 documented as of this encounter (statuses as of 07/09/2023) [facility] History of Past illness Narrative* Problem Noted Date Diagnosed Date Resolved Date DM type 2 (diabetes mellitus, type 2) 06/05/2014 06/18/2015 BMI 45.0-49.9, adult 06/05/2014 023 DM Neuro Manif Type II 11/14/200906/05 DM w/o Complication Type II 11/07/2009 03/05/2014 Obesity, Class III, BMI 40-4 9.9 (morbid obesity) 03/05/2023 documented as of this encounter (statuses as of 07/13/2023) [facility] Diagnosis Acute pulmonary embolism, unspecified pulmonary embolism type, unspecified whether acute cor pulmonale present (HCC) Venous insufficiency Unspecified venous (peripheral) insufficiency Cellulitis of lower extremity, unspecified laterality Type 2 diabetes, controlled, with neuropathy (HCC) Type II or unspecified type diabetes mellitus with neurological manifestations, not stated as uncontrolled Chronic obstructive pulmonary disease, unspecified COPD type (HCC) Acquired hypothyroidism Unspecified hypothyroidism [facility] Diagnosis Screening for prostate cancer- Primary Special screening for malignant neoplasm of prostate Type 2 diabetes, controlled, with neuropathy (HCC) Type II or unspecified type diabetes mellitus with neurological manifestations, not stated as uncontrolled [facility] Diagnosis Encounter for screening for malignant neoplasm of respiratory organs Special screening for malignant neoplasm of the respiratory organs documented in this encounter [facility] noteNo assessment information availableW[facility] Work Phone: Evaluation note* Diagnosis Chronic obstructive pulmonary disease, unspecified COPD type (HCC) Acute pulmonary embolism, unspecified pulmonary embolism type, unspecified whether acute cor pulmonale present (HCC) Type 2 diabetes, controlled, with neuropathy (HCC) Type II or unspecified type diabetes mellitus with neurological manifestations, not stated as uncontrolled Acute right ankle pain BPPV (benign paroxysmal positional vertigo), unspecified laterality Acquired hypothyroidism Unspecified hypothyroidism DDD (degenerative disc disease), lumbar Degeneration of lumbar or lumbosacral intervertebral disc Chronic pain syndrome Venous insufficiency Unspecified venous (peripheral) insufficiency Cellulitis of lower extremity, unspecified laterality Centrilobular emphysema (HCC) Other emphysema documented in this encounter [facility] note* Diagnosis Essential hypertension- Primary Unspecified essential hypertension Acute pulmonary embolism, unspecified pulmonary embolism type, unspecified whether acute cor pulmonale present (HCC) Venous insufficiency Unspecified venous (peripheral) insufficiency Cellulitis of lower extremity, unspecified laterality Type 2 diabetes, controlled, with neuropathy (HCC) Type II or unspecified type diabetes mellitus with neurological manifestations, not stated as uncontrolled Chronic obstructive pulmonary disease, unspecified COPD type (HCC) Acquired hypothyroidism Unspecified hypothyroidism Centrilobular emphysema (HCC) Other emphysema DDD (degenerative disc disease), lumbar Degeneration of lumbar or lumbosacral intervertebral disc Chronic pain syndrome BPPV (benign paroxysmal positional vertigo), unspecified laterality Acute right ankle pain documented in this encounter [facility] note* Diagnosis Tobacco use current- Primary documented in this encounter [facility] note* Diagnosis Encounter for screening for malignant neoplasm of lung- Primary Smoker Tobacco use disorder Asthma with chronic obstructive pulmonary disease (COPD) (HCC) Chronic obstructive asthma, unspecified Lung nodules Other nonspecific abnormal finding of lung field Obesity, Class II, BMI 35-39.9 Obesity, unspecified documented in this encounter [facility] note* Diagnosis Type 2 diabetes, controlled, with neuropathy (HCC)- Primary Type II or unspecified type diabetes mellitus with neurological manifestations, not stated as uncontrolled Acute pulmonary embolism, unspecified pulmonary embolism type, unspecified whether acute cor pulmonale present (HCC) Venous insufficiency Unspecified venous (peripheral) insufficiency Cellulitis of lower extremity, unspecified laterality Special screening for malignant neoplasms, colon Need for vaccination Need for prophylactic vaccination and inoculation against unspecified single disease Primary hypercoagulable state (HCC) Primary hypercoagulable state Acquired hypothyroidism Unspecified hypothyroidism Essential hypertension Unspecified essential hypertension History of colonic polyps Personal history of colonic polyps [facility] Diagnosis Acquired hypothyroidism Unspecified hypothyroidism documented in this encounter [facility] note* Diagnosis Special screening for malignant neoplasms, colon- Primary History of colonic polyps Personal history of colonic polyps Factor V Leiden (HCC) Primary hypercoagulable state Requires continuous at home supplemental oxygen Embolism and thrombosis (HCC) Embolism and thrombosis of unspecified site Tobacco use Tobacco use disorder [facility] Diagnosis Pre-operative examination- Primary Preoperative examination, unspecified Acquired hypothyroidism Unspecified hypothyroidism Mild intermittent asthma without complication Unspecified asthma Essential hypertension Unspecified essential hypertension Factor V Leiden (HCC) Primary hypercoagulable state Obesity, Class II, BMI 35-39.9 Obesity, unspecified Obstructive sleep apnea Obstructive sleep apnea (adult) (pediatric) Type 2 diabetes, controlled, with neuropathy (HCC) Type II or unspecified type diabetes mellitus with neurological manifestations, not stated as uncontrolled Venous insufficiency Unspecified venous (peripheral) insufficiency Centrilobular emphysema (HCC) Other emphysema Tobacco use disorder Embolism and thrombosis (HCC) Embolism and thrombosis of unspecified site Gastroesophageal reflux disease, unspecified whether esophagitis present Family history of malignant hypertension Family history of other cardiovascular diseases documented in this encounter [facility] note* Diagnosis Type 2 diabetes, controlled, with neuropathy (HCC)- Primary Type II or unspecified type diabetes mellitus with neurological manifestations, not stated as uncontrolled Essential hypertension Unspecified essential hypertension Chronic pain syndrome Chronic pulmonary embolism without acute cor pulmonale, unspecified pulmonary embolism type (HCC) Obstructive sleep apnea Obstructive sleep apnea (adult) (pediatric) Tobacco use disorder Gastroesophageal reflux disease, unspecified whether esophagitis present Acquired hypothyroidism Unspecified hypothyroidism Obesity, Class II, BMI 35-39.9 Obesity, unspecified Finger numbness Disturbance of skin sensation documented in this encounter [facility] note* Diagnosis Type 2 diabetes mellitus without complication, without long-term current use of insulin (HCC)- Primary [facility] Pre-operative examination- Primary Preoperative examination, unspecified Acquired hypothyroidism Unspecified hypothyroidism Mild intermittent asthma without complication Unspecified asthma Essential hypertension Unspecified essential hypertension Factor V Leiden (HCC) Primary hypercoagulable state Obesity, Class II, BMI 35-39.9 Obesity, unspecified Obstructive sleep apnea Obstructive sleep apnea (adult) (pediatric) Type 2 diabetes, controlled, with neuropathy (HCC) Type II or unspecified type diabetes mellitus with neurological manifestations, not stated as uncontrolled Venous insufficiency Unspecified venous (peripheral) insufficiency Centrilobular emphysema (HCC) Other emphysema Tobacco use disorder Embolism and thrombosis (HCC) Embolism and thrombosis of unspecified site Gastroesophageal reflux disease, unspecified whether esophagitis present Family history of malignant hypertension Family history of other cardiovascular diseases BPPV (benign paroxysmal positional vertigo), unspecified laterality- Primary Dizziness Dizziness and giddiness Essential hypertension Unspecified essential hypertension [facility] Diagnosis Pre-operative examination- Primary Preoperative examination, unspecified Acquired hypothyroidism Unspecified hypothyroidism Mild intermittent asthma without complication Unspecified asthma Essential hypertension Unspecified essential hypertension Factor V Leiden (HCC) Primary hypercoagulable state Obesity, Class II, BMI 35-39.9 Obesity, unspecified Obstructive sleep apnea Obstructive sleep apnea (adult) (pediatric) Type 2 diabetes, controlled, with neuropathy (HCC) Type II or unspecified type diabetes mellitus with neurological manifestations, not stated as uncontrolled Venous insufficiency Unspecified venous (peripheral) insufficiency Centrilobular emphysema (HCC) Other emphysema Tobacco use disorder Embolism and thrombosis (HCC) Embolism and thrombosis of unspecified site Gastroesophageal reflux disease, unspecified whether esophagitis present Family history of malignant hypertension Family history of other cardiovascular diseases Acquired hypothyroidism Unspecified hypothyroidism [facility] Diagnosis Pre-operative examination- Primary Preoperative examination, unspecified Acquired hypothyroidism Unspecified hypothyroidism Mild intermittent asthma without complication Unspecified asthma Essential hypertension Unspecified essential hypertension Factor V Leiden (HCC) Primary hypercoagulable state Obesity, Class II, BMI 35-39.9 Obesity, unspecified Obstructive sleep apnea Obstructive sleep apnea (adult) (pediatric) Type 2 diabetes, controlled, with neuropathy (HCC) Type II or unspecified type diabetes mellitus with neurological manifestations, not stated as uncontrolled Venous insufficiency Unspecified venous (peripheral) insufficiency Centrilobular emphysema (HCC) Other emphysema Tobacco use disorder Embolism and thrombosis (HCC) Embolism and thrombosis of unspecified site Gastroesophageal reflux disease, unspecified whether esophagitis present Family history of malignant hypertension Family history of other cardiovascular diseases Dizziness- Primary Dizziness and giddiness BPPV (benign paroxysmal positional vertigo), unspecified laterality [facility]* Diagnosis Pre-operative examination- Primary Preoperative examination, unspecified Acquired hypothyroidism Unspecified hypothyroidism Mild intermittent asthma without complication Unspecified asthma Essential hypertension Unspecified essential hypertension Factor V Leiden (HCC) Primary hypercoagulable state Obesity, Class II, BMI 35-39.9 Obesity, unspecified Obstructive sleep apnea Obstructive sleep apnea (adult) (pediatric) Type 2 diabetes, controlled, with neuropathy (HCC) Type II or unspecified type diabetes mellitus with neurological manifestations, not stated as uncontrolled Venous insufficiency Unspecified venous (peripheral) insufficiency Centrilobular emphysema (HCC) Other emphysema Tobacco use disorder Embolism and thrombosis (HCC) Embolism and thrombosis of unspecified site Gastroesophageal reflux disease, unspecified whether esophagitis present Family history of malignant hypertension Family history of other cardiovascular diseases COPD with acute exacerbation (HCC)- Primary Obstructive chronic bronchitis with exacerbation Chronic obstructive pulmonary disease, unspecified COPD type (HCC) Centrilobular emphysema (HCC) Other emphysema Tobacco use disorder Fatigue, unspecified type Essential hypertension Unspecified essential hypertension Hyperlipidemia, mixed Mixed hyperlipidemia Type 2 diabetes, controlled, with neuropathy (HCC) Type II or unspecified type diabetes mellitus with neurological manifestations, not stated as uncontrolled BPPV (benign paroxysmal positional vertigo), unspecified laterality Embolism and thrombosis (HCC) Embolism and thrombosis of unspecified site Acquired hypothyroidism Unspecified hypothyroidism Chronic pain syndrome Obstructive sleep apnea Obstructive sleep apnea (adult) (pediatric) Gastroesophageal reflux disease, unspecified whether esophagitis present Venous insufficiency Unspecified venous (peripheral) insufficiency DDD (degenerative disc disease), lumbar Degeneration of lumbar or lumbosacral intervertebral disc Encounter for immunization Need for other specified prophylactic vaccination against single bacterial disease Screening for colon cancer Special screening for malignant neoplasms, colon Screening for prostate cancer Special screening for malignant neoplasm of prostate [facility] Diagnosis Pre-operative examination- Primary Preoperative examination, unspecified Acquired hypothyroidism Unspecified hypothyroidism Mild intermittent asthma without complication Unspecified asthma Essential hypertension Unspecified essential hypertension Factor V Leiden (HCC) Primary hypercoagulable state Obesity, Class II, BMI 35-39.9 Obesity, unspecified Obstructive sleep apnea Obstructive sleep apnea (adult) (pediatric) Type 2 diabetes, controlled, with neuropathy (HCC) Type II or unspecified type diabetes mellitus with neurological manifestations, not stated as uncontrolled Venous insufficiency Unspecified venous (peripheral) insufficiency Centrilobular emphysema (HCC) Other emphysema Tobacco use disorder Embolism and thrombosis (HCC) Embolism and thrombosis of unspecified site Gastroesophageal reflux disease, unspecified whether esophagitis present Family history of malignant hypertension Family history of other cardiovascular diseases Pulmonary emphysema, unspecified emphysema type (HCC)- Primary [facility]* Diagnosis Pre-operative examination- Primary Preoperative examination, unspecified Acquired hypothyroidism Unspecified hypothyroidism Mild intermittent asthma without complication Unspecified asthma Essential hypertension Unspecified essential hypertension Factor V Leiden (HCC) Primary hypercoagulable state Obesity, Class II, BMI 35-39.9 Obesity, unspecified Obstructive sleep apnea Obstructive sleep apnea (adult) (pediatric) Type 2 diabetes, controlled, with neuropathy (HCC) Type II or unspecified type diabetes mellitus with neurological manifestations, not stated as uncontrolled Venous insufficiency Unspecified venous (peripheral) insufficiency Centrilobular emphysema (HCC) Other emphysema Tobacco use disorder Embolism and thrombosis (HCC) Embolism and thrombosis of unspecified site Gastroesophageal reflux disease, unspecified whether esophagitis present Family history of malignant hypertension Family history of other cardiovascular diseases Stage 3 severe COPD by GOLD classification ([facility])- Primary Cigarette smoker Tobacco use disorder Lung nodules Other nonspecific abnormal finding of lung field Morbid obesity (HCC) Morbid obesity documented in this encounter [facility] note* Diagnosis Pre-operative examination- Primary Preoperative examination, unspecified Acquired hypothyroidism Unspecified hypothyroidism Mild intermittent asthma without complication (HCC) Unspecified asthma Essential hypertension Unspecified essential hypertension Factor V Leiden (HCC) Primary hypercoagulable state Obesity, Class II, BMI 35-39.9 Obesity, unspecified Obstructive sleep apnea Obstructive sleep apnea (adult) (pediatric) Type 2 diabetes, controlled, with neuropathy (HCC) Type II or unspecified type diabetes mellitus with neurological manifestations, not stated as uncontrolled Venous insufficiency Unspecified venous (peripheral) insufficiency Centrilobular emphysema (HCC) Other emphysema Tobacco use disorder Embolism and thrombosis (HCC) Embolism and thrombosis of unspecified site Gastroesophageal reflux disease, unspecified whether esophagitis present Family history of malignant hypertension Family history of other cardiovascular diseases Chronic obstructive pulmonary disease, unspecified COPD type (HCC)- Primary Type 2 diabetes, controlled, with neuropathy (HCC) Type II or unspecified type diabetes mellitus with neurological manifestations, not stated as uncontrolled Gastroesophageal reflux disease, unspecified whether esophagitis present Acquired hypothyroidism Unspecified hypothyroidism Embolism and thrombosis (HCC) Embolism and thrombosis of unspecified site Essential hypertension Unspecified essential hypertension Hyperlipidemia, mixed Mixed hyperlipidemia Centrilobular emphysema (HCC) Other emphysema BPPV (benign paroxysmal positional vertigo), unspecified laterality Chronic pain syndrome DDD (degenerative disc disease), lumbar Degeneration of lumbar or lumbosacral intervertebral disc [facility]* Diagnosis Pre-operative examination- Primary Preoperative examination, unspecified Acquired hypothyroidism Unspecified hypothyroidism Mild intermittent asthma without complication (HCC) Unspecified asthma Essential hypertension Unspecified essential hypertension Factor V Leiden (HCC) Primary hypercoagulable state Obesity, Class II, BMI 35-39.9 Obesity, unspecified Obstructive sleep apnea Obstructive sleep apnea (adult) (pediatric) Type 2 diabetes, controlled, with neuropathy (HCC) Type II or unspecified type diabetes mellitus with neurological manifestations, not stated as uncontrolled Venous insufficiency Unspecified venous (peripheral) insufficiency Centrilobular emphysema (HCC) Other emphysema Tobacco use disorder Embolism and thrombosis (HCC) Embolism and thrombosis of unspecified site Gastroesophageal reflux disease, unspecified whether esophagitis present Family history of malignant hypertension Family history of other cardiovascular diseases Type 2 diabetes, controlled, with neuropathy (HCC)- Primary Type II or unspecified type diabetes mellitus with neurological manifestations, not stated as uncontrolled Acquired hypothyroidism Unspecified hypothyroidism Essential hypertension Unspecified essential hypertension Vitamin D deficiency Unspecified vitamin D deficiency Type 2 diabetes mellitus without complication, without long-term current use of insulin (HCC) documented in this encounter [facility] note* Diagnosis Pre-operative examination- Primary Preoperative examination, unspecified Acquired hypothyroidism Unspecified hypothyroidism Mild intermittent asthma without complication (HCC) Unspecified asthma Essential hypertension Unspecified essential hypertension Factor V Leiden (HCC) Primary hypercoagulable state Obesity, Class II, BMI 35-39.9 Obesity, unspecified Obstructive sleep apnea Obstructive sleep apnea (adult) (pediatric) Type 2 diabetes, controlled, with neuropathy (HCC) Type II or unspecified type diabetes mellitus with neurological manifestations, not stated as uncontrolled Venous insufficiency Unspecified venous (peripheral) insufficiency Centrilobular emphysema (HCC) Other emphysema Tobacco use disorder Embolism and thrombosis (HCC) Embolism and thrombosis of unspecified site Gastroesophageal reflux disease, unspecified whether esophagitis present Family history of malignant hypertension Family history of other cardiovascular diseases Type 2 diabetes, controlled, with neuropathy (HCC)- Primary Type II or unspecified type diabetes mellitus with neurological manifestations, not stated as uncontrolled Medication management Encounter for long-term (current) use of other medications Stage 3 severe COPD by GOLD classification ([facility])- Primary Cigarette smoker Tobacco use disorder Lung nodules Other nonspecific abnormal finding of lung field Morbid obesity (HCC) Morbid obesity [facility] Diagnosis Pre-operative examination- Primary Preoperative examination, unspecified Acquired hypothyroidism Unspecified hypothyroidism Mild intermittent asthma without complication (HCC) Unspecified asthma Essential hypertension Unspecified essential hypertension Factor V Leiden (HCC) Primary hypercoagulable state Obesity, Class II, BMI 35-39.9 Obesity, unspecified Obstructive sleep apnea Obstructive sleep apnea (adult) (pediatric) Type 2 diabetes, controlled, with neuropathy (HCC) Type II or unspecified type diabetes mellitus with neurological manifestations, not stated as uncontrolled Venous insufficiency Unspecified venous (peripheral) insufficiency Centrilobular emphysema (HCC) Other emphysema Tobacco use disorder Embolism and thrombosis (HCC) Embolism and thrombosis of unspecified site Gastroesophageal reflux disease, unspecified whether esophagitis present Family history of malignant hypertension Family history of other cardiovascular diseases Acquired hypothyroidism Unspecified hypothyroidism [facility] Diagnosis Pre-operative examination- Primary Preoperative examination, unspecified Acquired hypothyroidism Unspecified hypothyroidism Mild intermittent asthma without complication (HCC) Unspecified asthma Essential hypertension Unspecified essential hypertension Factor V Leiden (HCC) Primary hypercoagulable state Obesity, Class II, BMI 35-39.9 Obesity, unspecified Obstructive sleep apnea Obstructive sleep apnea (adult) (pediatric) Type 2 diabetes, controlled, with neuropathy (HCC) Type II or unspecified type diabetes mellitus with neurological manifestations, not stated as uncontrolled Venous insufficiency Unspecified venous (peripheral) insufficiency Centrilobular emphysema (HCC) Other emphysema Tobacco use disorder Embolism and thrombosis (HCC) Embolism and thrombosis of unspecified site Gastroesophageal reflux disease, unspecified whether esophagitis present Family history of malignant hypertension Family history of other cardiovascular diseases Stage 3 severe COPD by GOLD classification ([facility])- Primary Cigarette smoker Tobacco use disorder Lung nodules Other nonspecific abnormal finding of lung field Nocturnal hypoxia Hypoxemia Morbid obesity (HCC) Morbid obesity documented in this encounter [facility] note* Diagnosis Pre-operative examination- Primary Preoperative examination, unspecified Acquired hypothyroidism Unspecified hypothyroidism Mild intermittent asthma without complication (HCC) Unspecified asthma Essential hypertension Unspecified essential hypertension Factor V Leiden (HCC) Primary hypercoagulable state Obesity, Class II, BMI 35-39.9 Obesity, unspecified Obstructive sleep apnea Obstructive sleep apnea (adult) (pediatric) Type 2 diabetes, controlled, with neuropathy (HCC) Type II or unspecified type diabetes mellitus with neurological manifestations, not stated as uncontrolled Venous insufficiency Unspecified venous (peripheral) insufficiency Centrilobular emphysema (HCC) Other emphysema Tobacco use disorder Embolism and thrombosis (HCC) Embolism and thrombosis of unspecified site Gastroesophageal reflux disease, unspecified whether esophagitis present Family history of malignant hypertension Family history of other cardiovascular diseases Type 2 diabetes, controlled, with neuropathy (HCC)- Primary Type II or unspecified type diabetes mellitus with neurological manifestations, not stated as uncontrolled Tobacco use disorder [facility] Diagnosis Pre-operative examination- Primary Preoperative examination, unspecified Acquired hypothyroidism Unspecified hypothyroidism Mild intermittent asthma without complication (HCC) Unspecified asthma Essential hypertension Unspecified essential hypertension Factor V Leiden (HCC) Primary hypercoagulable state Obesity, Class II, BMI 35-39.9 Obesity, unspecified Obstructive sleep apnea Obstructive sleep apnea (adult) (pediatric) Type 2 diabetes, controlled, with neuropathy (HCC) Type II or unspecified type diabetes mellitus with neurological manifestations, not stated as uncontrolled Venous insufficiency Unspecified venous (peripheral) insufficiency Centrilobular emphysema (HCC) Other emphysema Tobacco use disorder Embolism and thrombosis (HCC) Embolism and thrombosis of unspecified site Gastroesophageal reflux disease, unspecified whether esophagitis present Family history of malignant hypertension Family history of other cardiovascular diseases Smoker Tobacco use disorder BPPV (benign paroxysmal positional vertigo), unspecified laterality [facility] Diagnosis Pre-operative examination- Primary Preoperative examination, unspecified Acquired hypothyroidism Unspecified hypothyroidism Mild intermittent asthma without complication (HCC) Unspecified asthma Essential hypertension Unspecified essential hypertension Factor V Leiden (HCC) Primary hypercoagulable state Obesity, Class II, BMI 35-39.9 Obesity, unspecified Obstructive sleep apnea Obstructive sleep apnea (adult) (pediatric) Type 2 diabetes, controlled, with neuropathy (HCC) Type II or unspecified type diabetes mellitus with neurological manifestations, not stated as uncontrolled Venous insufficiency Unspecified venous (peripheral) insufficiency Centrilobular emphysema (HCC) Other emphysema Tobacco use disorder Embolism and thrombosis (HCC) Embolism and thrombosis of unspecified site Gastroesophageal reflux disease, unspecified whether esophagitis present Family history of malignant hypertension Family history of other cardiovascular diseases Dizziness- Primary Dizziness and giddiness [facility] Diagnosis Pre-operative examination- Primary Preoperative examination, unspecified Acquired hypothyroidism Unspecified hypothyroidism Mild intermittent asthma without complication (HCC) Unspecified asthma Essential hypertension Unspecified essential hypertension Factor V Leiden (HCC) Primary hypercoagulable state Obesity, Class II, BMI 35-39.9 Obesity, unspecified Obstructive sleep apnea Obstructive sleep apnea (adult) (pediatric) Type 2 diabetes, controlled, with neuropathy (HCC) Type II or unspecified type diabetes mellitus with neurological manifestations, not stated as uncontrolled Venous insufficiency Unspecified venous (peripheral) insufficiency Centrilobular emphysema (HCC) Other emphysema Tobacco use disorder Embolism and thrombosis (HCC) Embolism and thrombosis of unspecified site Gastroesophageal reflux disease, unspecified whether esophagitis present Family history of malignant hypertension Family history of other cardiovascular diseases Type 2 diabetes, controlled, with neuropathy (HCC)- Primary Type II or unspecified type diabetes mellitus with neurological manifestations, not stated as uncontrolled documented in this encounter [facility] note* Diagnosis Pre-operative examination- Primary Preoperative examination, unspecified Acquired hypothyroidism Unspecified hypothyroidism Mild intermittent asthma without complication (HCC) Unspecified asthma Essential hypertension Unspecified essential hypertension Factor V Leiden (HCC) Primary hypercoagulable state Obesity, Class II, BMI 35-39.9 Obesity, unspecified Obstructive sleep apnea Obstructive sleep apnea (adult) (pediatric) Type 2 diabetes, controlled, with neuropathy (HCC) Type II or unspecified type diabetes mellitus with neurological manifestations, not stated as uncontrolled Venous insufficiency Unspecified venous (peripheral) insufficiency Centrilobular emphysema (HCC) Other emphysema Tobacco use disorder Embolism and thrombosis (HCC) Embolism and thrombosis of unspecified site Gastroesophageal reflux disease, unspecified whether esophagitis present Family history of malignant hypertension Family history of other cardiovascular diseases Essential hypertension- Primary Unspecified essential hypertension Venous insufficiency Unspecified venous (peripheral) insufficiency Tobacco use disorder Type 2 diabetes, controlled, with neuropathy (HCC) Type II or unspecified type diabetes mellitus with neurological manifestations, not stated as uncontrolled Essential hypertension with goal blood pressure less than 140/90 Acquired hypothyroidism Unspecified hypothyroidism Right knee pain, unspecified chronicity Type 2 diabetes mellitus with hyperglycemia, unspecified whether longterm insulin use (HCC) Vitamin D deficiency Unspecified vitamin D deficiency documented in this encounter [facility] Discharge instructions Additional Instructions Take your thyroid medicine as previously prescribed. Follow-up with your primary care physician in 3 to 5 days for repeat evaluation. Take your antibiotics as prescribed until gone.[facility] Work Phone: Reason for referral (narrative)No reason for referral information availableWUC Health Work Phone: Reason for Referral Specialty Diagnoses / Procedures Referred By Contac t Referred To Contact CT IMAGING Diagnoses Encounter for screening for malignant neoplasm of respiratory organs Procedures CT LUNG SCREEN WO IVCON LDCT FOR LUNG CA SCREEN UNDER THE MD Sarita Payne, SENIOR CORPORATE STRATEGY MANAGER.DIRECTOR HAIR [address] [place] [address] Ct Imaging Referral ID Status Reason Start Date Expiration Date V isits Requested Visits Authorized [id number] Closed Auto-Generate d Referral 04/08/2021 05/07/2022 1 1 Specialty Diagnoses / Procedures Referred By Contac t Referred To Contact CT IMAGING Diagnoses Tobacco use current Procedures CT LUNG SCREEN WO IVCON COMPUTED TOMOGRAPHY THORAX LW DOSE LNG CA SCR Carlee- Jocelyn Perez, SENIOR CORPORATE STRATEGY MANAGER.DIRECTOR HAIR [address] [place] [address] Ct Imaging Referral ID Status Reason Start Date Expiration Date Visits Requested Visits Authorized [id number] Pending Review Auto-Generat ed Referral 11/21/2022 11/07/2023 1 1 Specialty Diagnoses / Procedures Referred By Contac t Referred To Contact General Surgery Diagnoses Special screening for malignant neoplasms, colon History of colonic polyps Procedures CONSULT TO GENERAL SURGERY OFFICE/OUTPATIENT [facility] MDM 60-74 MINUTES Kaushik Seals MD [address] [place] [address] Referral ID Status Reason Start Date Expiration Date Visits Requested Visits Authorized [id number] Authorized PCP Requested Referral 03/05/2023 2024 1 1 Specialty Diagnoses / Procedures Referred By Contac t Referred To Contact [facility] Diagnoses BPPV (benign paroxysmal positional vertigo), unspecified laterality Dizziness Procedures CONSULT TO PHYSICAL THERAPY PHYSICAL THERAPY EVALUATION HIGH COMPLEX 45 MINS Micky Cabezas SENIOR CORPORATE STRATEGY MANAGER.DIRECTOR HAIR [address] [place] [address] [facility] [place] [address] [place] [address] Referral ID Status Reason Start Date Expiration Date Visits Requested Visits Authorized [id number] Pending Review Auto-Generat ed Referral 04/11/2024 04/11/2025 1 1 Specialty Diagnoses / Procedures Referred By Contac t Referred To Contact [facility] Diagnoses BPPV (benign paroxysmal positional vertigo), unspecified laterality Dizziness Procedures PT REHAB FOLLOW UP ORDER THERAPEUTIC EXERCISES RE, EA 15 MIN. Karissa Garcia, PT [facility] [place] [address] [place] [address] Referral ID Status Reason Start Date Expiration Date Visits Requested Visits Authorized [id number] New Request PCP Requested Referral Auto-Generate d Referral 05/02/2024 07/31/2024 1 1 Summary Purpose Family History No Family History Records Found Relationship Condition Age at Onset Recorded Date/T comfort Unknown Family History?Cancer Unknown March 28, 2020 1:34am Family History?Cance r, Diabetes, Heart Disease, Hypertension Unknown January 25, 2014 10:08pm Family History?Diabe prince, Heart Disease, Hypertension Unknown November 29, 2013 12:59pm Family History?Diabe prince, Heart Disease, Hypertension Unknown January 25, 2014 10:08pm Advance Directives No Advanced Directives Records Found Advance Directive Response Recorded Date/ Time Advance Directives No January 25 10:48pm Living Will No February 11, 2022 7:49am Power of Radial Arm Saw Operator No February 11 7:49am Advance Directive Response Recorded Date/ Time Advance Directives No January 25 10:48pm Living Will No November 19, 2022 2:19pm Power of Radial Arm Saw Operator No November 19 2:19pm Advance Directive Response Recorded Date/ Time Advance Directives No January 25 10:48pm Living Will No June 24 5:22pm Power of Radial Arm Saw Operator No June 24, 2023 5:22pm Advance Directive Response Recorded Date/ Time Living Will No December 06, 2024 8:30pm Do you have a Healthcare Power of Radial Arm Saw Operator? No December 06, 2024 8:30pm Advance Directives No January 25 10:48pm Chief Complaint and Reason for Visit Chief Complaint right leg Chief Complaint CHEST PAIN Chief Complaint CP Chief Complaint Admit Date CONFUSION December 06, 2024 8:1 9pm Additional Source Comments Source Comments (unrecognize d section and content) In the event this informatio n is protected by the Federal Confidentiality of Alcohol and Drug Abuse Patient Records regulations: The Federal rules restrict any use of the information to criminally investigate or prosecute any alcohol or drug abuse patient.[facility] the event this information is protected by the Federal Confidentiality of Alcohol and Drug Abuse Patient Records regulations: The Federal rules restrict any use of the information to criminally investigate or prosecute any alcohol or drug abuse patient.[facility] the event this information is protected by the Federal Confidentiality of Alcohol and Drug Abuse Patient Records regulations: The Federal rules restrict any use of the information to criminally investigate or prosecute any alcohol or drug abuse patient.[facility] the event this information is protected by the Federal Confidentiality of Alcohol and Drug Abuse Patient Records regulations: The Federal rules restrict any use of the information to criminally investigate or prosecute any alcohol or drug abuse patient.[facility] the event this information is protected by the Federal Confidentiality of Alcohol and Drug Abuse Patient Records regulations: The Federal rules restrict any use of the information to criminally investigate or prosecute any alcohol or drug abuse patient.[facility]In the event this information is protected by the Federal Confidentiality of Alcohol and Drug Abuse Patient Records regulations: The Federal rules restrict any use of the information to criminally investigate or prosecute any alcohol or drug abuse patient.[facility] the event this information is protected by the Federal Confidentiality of Alcohol and Drug Abuse Patient Records regulations: The Federal rules restrict any use of the information to criminally investigate or prosecute any alcohol or drug abuse patient.[facility] the event this information is protected by the Federal Confidentiality of Alcohol and Drug Abuse Patient Records regulations: The Federal rules restrict any use of the information to criminally investigate or prosecute any alcohol or drug abuse patient.[facility] the event this information is protected by the Federal Confidentiality of Alcohol and Drug Abuse Patient Records regulations: The Federal rules restrict any use of the information to criminally investigate or prosecute any alcohol or drug abuse patient.[facility] HospitalIn the event this information is protected by the Federal Confidentiality of Alcohol and Drug Abuse Patient Records regulations: The Federal rules restrict any use of the information to criminally investigate or prosecute any alcohol or drug abuse patient.[facility] HospitalIn the event this information is protected by the Federal Confidentiality of Alcohol and Drug Abuse Patient Records regulations: The Federal rules restrict any use of the information to criminally investigate or prosecute any alcohol or drug abuse patient.[facility] HospitalIn the event this information is protected by the Federal Confidentiality of Alcohol and Drug Abuse Patient Records regulations: The Federal rules restrict any use of the information to criminally investigate or prosecute any alcohol or drug abuse patient.[facility] the event this information is protected by the Federal Confidentiality of Alcohol and Drug Abuse Patient Records regulations: The Federal rules restrict any use of the information to criminally investigate or prosecute any alcohol or drug abuse patient.[facility] the event this information is protected by the Federal Confidentiality of Alcohol and Drug Abuse Patient Records regulations: The Federal rules restrict any use of the information to criminally investigate or prosecute any alcohol or drug abuse patient.[facility] HospitalIn the event this information is protected by the Federal Confidentiality of Alcohol and Drug Abuse Patient Records regulations: The Federal rules restrict any use of the information to criminally investigate or prosecute any alcohol or drug abuse patient.[facility]In the event this information is protected by the Federal Confidentiality of Alcohol and Drug Abuse Patient Records regulations: The Federal rules restrict any use of the information to criminally investigate or prosecute any alcohol or drug abuse patient.[facility]In the event this information is protected by the Federal Confidentiality of Alcohol and Drug Abuse Patient Records regulations: The Federal rules restrict any use of the information to criminally investigate or prosecute any alcohol or drug abuse patient.[facility]In the event this information is protected by the Federal Confidentiality of Alcohol and Drug Abuse Patient Records regulations: The Federal rules restrict any use of the information to criminally investigate or prosecute any alcohol or drug abuse patient.[facility] HospitalIn the event this information is protected by the Federal Confidentiality of Alcohol and Drug Abuse Patient Records regulations: The Federal rules restrict any use of the information to criminally investigate or prosecute any alcohol or drug abuse patient.[facility] HospitalIn the event this information is protected by the Federal Confidentiality of Alcohol and Drug Abuse Patient Records regulations: The Federal rules restrict any use of the information to criminally investigate or prosecute any alcohol or drug abuse patient.[facility]In the event this information is protected by the Federal Confidentiality of Alcohol and Drug Abuse Patient Records regulations: The Federal rules restrict any use of the information to criminally investigate or prosecute any alcohol or drug abuse patient.[facility] HospitalIn the event this information is protected by the Federal Confidentiality of Alcohol and Drug Abuse Patient Records regulations: The Federal rules restrict any use of the information to criminally investigate or prosecute any alcohol or drug abuse patient.[facility] HospitalIn the event this information is protected by the Federal Confidentiality of Alcohol and Drug Abuse Patient Records regulations: The Federal rules restrict any use of the information to criminally investigate or prosecute any alcohol or drug abuse patient.[facility] the event this information is protected by the Federal Confidentiality of Alcohol and Drug Abuse Patient Records regulations: The Federal rules restrict any use of the information to criminally investigate or prosecute any alcohol or drug abuse patient.[facility]In the event this information is protected by the Federal Confidentiality of Alcohol and Drug Abuse Patient Records regulations: The Federal rules restrict any use of the information to criminally investigate or prosecute any alcohol or drug abuse patient.[facility]In the event this information is protected by the Federal Confidentiality of Alcohol and Drug Abuse Patient Records regulations: The Federal rules restrict any use of the information to criminally investigate or prosecute any alcohol or drug abuse patient.[facility]In the event this information is protected by the Federal Confidentiality of Alcohol and Drug Abuse Patient Records regulations: The Federal rules restrict any use of the information to criminally investigate or prosecute any alcohol or drug abuse patient.[facility] the event this information is protected by the Federal Confidentiality of Alcohol and Drug Abuse Patient Records regulations: The Federal rules restrict any use of the information to criminally investigate or prosecute any alcohol or drug abuse patient.[facility] HospitalIn the event this information is protected by the Federal Confidentiality of Alcohol and Drug Abuse Patient Records regulations: The Federal rules restrict any use of the information to criminally investigate or prosecute any alcohol or drug abuse patient.[facility]In the event this information is protected by the Federal Confidentiality of Alcohol and Drug Abuse Patient Records regulations: The Federal rules restrict any use of the information to criminally investigate or prosecute any alcohol or drug abuse patient.[facility]In the event this information is protected by the Federal Confidentiality of Alcohol and Drug Abuse Patient Records regulations: The Federal rules restrict any use of the information to criminally investigate or prosecute any alcohol or drug abuse patient.[facility] the event this information is protected by the Federal Confidentiality of Alcohol and Drug Abuse Patient Records regulations: The Federal rules restrict any use of the information to criminally investigate or prosecute any alcohol or drug abuse patient.[facility] the event this information is protected by the Federal Confidentiality of Alcohol and Drug Abuse Patient Records regulations: The Federal rules restrict any use of the information to criminally investigate or prosecute any alcohol or drug abuse patient.[facility] HospitalIn the event this information is protected by the Federal Confidentiality of Alcohol and Drug Abuse Patient Records regulations: The Federal rules restrict any use of the information to criminally investigate or prosecute any alcohol or drug abuse patient.[facility]In the event this information is protected by the Federal Confidentiality of Alcohol and Drug Abuse Patient Records regulations: The Federal rules restrict any use of the information to criminally investigate or prosecute any alcohol or drug abuse patient.[facility] HospitalIn the event this information is protected by the Federal Confidentiality of Alcohol and Drug Abuse Patient Records regulations: The Federal rules restrict any use of the information to criminally investigate or prosecute any alcohol or drug abuse patient.[facility]In the event this information is protected by the Federal Confidentiality of Alcohol and Drug Abuse Patient Records regulations: The Federal rules restrict any use of the information to criminally investigate or prosecute any alcohol or drug abuse patient.[facility] HospitalIn the event this information is protected by the Federal Confidentiality of Alcohol and Drug Abuse Patient Records regulations: The Federal rules restrict any use of the information to criminally investigate or prosecute any alcohol or drug abuse patient.[facility]In the event this information is protected by the Federal Confidentiality of Alcohol and Drug Abuse Patient Records regulations: The Federal rules restrict any use of the information to criminally investigate or prosecute any alcohol or drug abuse patient.[facility] HospitalIn the event this information is protected by the Federal Confidentiality of Alcohol and Drug Abuse Patient Records regulations: The Federal rules restrict any use of the information to criminally investigate or prosecute any alcohol or drug abuse patient.[facility] Hospital[facility] the event this information is protected by the Federal Confidentiality of Alcohol and Drug Abuse Patient Records regulations: The Federal rules restrict any use of the information to criminally investigate or prosecute any alcohol or drug abuse patient.[facility] HospitalIn the event this information is protected by the Federal Confidentiality of Alcohol and Drug Abuse Patient Records regulations: The Federal rules restrict any use of the information to criminally investigate or prosecute any alcohol or drug abuse patient.[facility] HospitalIn the event this information is protected by the Federal Confidentiality of Alcohol and Drug Abuse Patient Records regulations: The Federal rules restrict any use of the information to criminally investigate or prosecute any alcohol or drug abuse patient.[facility] HospitalIn the event this information is protected by the Federal Confidentiality of Alcohol and Drug Abuse Patient Records regulations: The Federal rules restrict any use of the information to criminally investigate or prosecute any alcohol or drug abuse patient.[facility] HospitalIn the event this information is protected by the Federal Confidentiality of Alcohol and Drug Abuse Patient Records regulations: The Federal rules restrict any use of the information to criminally investigate or prosecute any alcohol or drug abuse patient.[facility] HospitalIn the event this information is protected by the Federal Confidentiality of Alcohol and Drug Abuse Patient Records regulations: The Federal rules restrict any use of the information to criminally investigate or prosecute any alcohol or drug abuse patient.[facility] HospitalIn the event this information is protected by the Federal Confidentiality of Alcohol and Drug Abuse Patient Records regulations: The Federal rules restrict any use of the information to criminally investigate or prosecute any alcohol or drug abuse patient.[facility] HospitalIn the event this information is protected by the Federal Confidentiality of Alcohol and Drug Abuse Patient Records regulations: The Federal rules restrict any use of the information to criminally investigate or prosecute any alcohol or drug abuse patient.[facility] HospitalIn the event this information is protected by the Federal Confidentiality of Alcohol and Drug Abuse Patient Records regulations: The Federal rules restrict any use of the information to criminally investigate or prosecute any alcohol or drug abuse patient.[facility] Reason for Visit (unrecogniz ed section and content) Reason Onset Date Comments Refill Request 11/21/2021 Reason Onset Date Comments PHMA/Care Gap Outreach 12/08/2021 Reason Comments Forms [facility] Specialty Diagnoses / Procedures Referred By Contac t Referred To Contact CT IMAGING Diagnoses Encounter for screening for malignant neoplasm of respiratory organs Procedures CT LUNG SCREEN WO IVCON LDCT FOR LUNG CA SCREEN UNDER THE MD Sarita Payne, SENIOR CORPORATE STRATEGY MANAGER.DIRECTOR HAIR [address] [place] [address] Ct Imaging Referral ID Status Reason Start Date Expiration Date V isits Requested Visits Authorized [id number] Closed Auto-Generate d Referral 04/08/2021 05/07/2022 1 1 Reason Comments Results Reason Comments Refill Request prilosec Reason Comments Refill Request Reason Onset Date Comments Refill Request 02/12/2022 Reason Comments Electronic Communication Medical Adheren ce form Reason Onset Date Comments Refill Request 09/04/2022 Reason Comments Physical Reason Comments Established Patient Follow-Up Annual LCS . Lung Eval Reason Comments FILM REQ SUMMA-ANDRZEJ Reason Comments 6 Month Exam Reason Comments Insurance Authorization Reason Comments Consult Colonoscopy consult. Specialty Diagnoses / Procedures Referred By Contac t Referred To Contact General Surgery Diagnoses Special screening for malignant neoplasms, colon History of colonic polyps Procedures CONSULT TO GENERAL SURGERY OFFICE/OUTPATIENT [facility] MDM 60-74 MINUTES Kaushik Seals MD [address] [place] [address] Referral ID Status Reason Start Date Expiration Date V isits Requested Visits Authorized [id number] Closed PCP Requested Referral 03/05/2023 2024 1 1 Reason Comments Consult Reason Comments GI PREOP CALL Reason Comments Medication Problem Reason Comments 6 Month Exam Reason Comments Results Labs Reason Onset Date Comments Refill Request 03/13/2024 Reason Comments Dizziness Reason Comments Dizziness Reason Comments PT Eval Specialty Diagnoses / Procedures Referred By Contac t Referred To Contact [facility] Diagnoses BPPV (benign paroxysmal positional vertigo), unspecified laterality Dizziness Procedures CONSULT TO PHYSICAL THERAPY PHYSICAL THERAPY EVALUATION HIGH COMPLEX 45 MINS Micky Cabezas, SENIOR CORPORATE STRATEGY MANAGER.DIRECTOR HAIR [address] [place] [address] [facility] [address] [place] [address] Referral ID Status Reason Start Date Expiration Date V isits Requested Visits Authorized [id number] Closed Auto-Generate d Referral 08/23/2023 08/22/2024 1 1 Reason Comments Spirometry Specialty Diagnoses / Procedures Referred By Contac t Referred To Contact [facility] Diagnoses Pulmonary emphysema, unspecified emphysema type (HCC) Procedures LUNG DIFFUSION CAPACITY (DLCO) DIFFUSING CAPACITY Georgie Barreto MD [address] [place] [address] Phone: tel: fax: [facility] [address] [place] [phone] Referral ID Status Reason Start Date Expiration Date V isits Requested Visits Authorized [id number] Closed Auto-Generate d Referral 10/26/2024 11/25/2025 1 1 Specialty Diagnoses / Procedures Referred By Contac t Referred To Contact [facility] Diagnoses Pulmonary emphysema, unspecified emphysema type (HCC) Procedures SPIROMETRY WITH DILATOR IF OBSTRUCTED BRNCDILAT RSPSE SPMTRY PRE&POST-BRNCDILAT ADMN Georgie Barreto MD [address] [place] [address] Phone: tel: fax: [facility] [address] [address] Referral ID Status Reason Start Date Expiration Date V isits Requested Visits Authorized [id number] Closed Auto-Generate d Referral 10/26/2024 11/25/2025 1 1 Reason Comments COPD Reason Comments Follow Up 3 mo Reason Onset Date Comments Results 01/17/2025 Reason Comments Diabetes Reason Comments Orders Reason Comments Establish Care 3 month follow up [place] Reason Comments New Primary Care Pharmacy Appt. Reason Onset Date Comments Refill Request 03/30/2025 Reason Comments F/U 3 Month Reason Comments Missed Appointment Primary care resched ule Care Teams (unrecognized sec tion and content) Unit Tender Relationship Specialty Start Date End Date Kaushik Seals MD [address] [place], [place] [id number] PCP - General Family Practice 09/20/17 Unit Tender Relationship Specialty Start Date End Date Kaushik Seals MD [address] [place], [place] [id number] PCP - General Family Practice 09/20/17 Unit Tender Relationship Specialty Start Date End Date Kaushik Seals MD [address] [place] [address] PCP - General Family Practice 09/20/17 Unit Tender Relationship Specialty Start Date End Date Kaushik Seals MD [address] [facility] [place] [address] PCP - General Family Practice 09/20/17 Unit Tender Relationship Specialty Start Date End Date Kaushik Seals MD [address] [place] [address] PCP - General Family Practice 09/20/17 Unit Tender Relationship Specialty Start Date End Date Kaushik Seals MD [address] [place] [address] PCP - General Family Practice 09/20/17 Unit Tender Relationship Specialty Start Date End Date Kaushik Seals MD [address] [place] [address] PCP - General Family Medicine 09/20/17 Unit Tender Relationship Specialty Start Date End Date Kaushik Seals MD [address] [facility] [address] PCP - General Family Medicine 09/20/17 Unit Tender Relationship Specialty Start Date End Date Kaushik Seals MD [address] [place] [address] PCP - General Family Medicine 09/20/17 Unit Tender Relationship Specialty Start Date End Date Kaushik Seals MD [address] [place] [address] PCP - General Family Medicine 09/20/17 Unit Tender Relationship Specialty Start Date End Date Kaushik Seals MD [address] [place] [address] PCP - General Family Medicine 09/20/17 Team Status: Active Member Role Status Dates Dr. Kaushik Seals MD Family Provider Active Dr. Kaushik Seals MD Primary Care Provider Active Team Status: Inactive Member Role Status Dates Dr. Kaushik Seals MD Primary Care Provider Active Dr. Farrukh Venegas DO Emergency Provider Active Unit Tender Relationship Specialty Start Date End Date Kaushik Seals MD [address] [facility] [place] [address] PCP - General Family Medicine 09/20/17 Unit Tender Relationship Specialty Start Date End Date Kaushik Seals MD [address] [place] [address] PCP - General Family Medicine 09/20/17 Unit Tender Relationship Specialty Start Date End Date Kaushik Seals MD [address] [place] [address] PCP - General Family Medicine 09/20/17 Unit Tender Relationship Specialty Start Date End Date Kaushik Seals MD [address] [place] [address] PCP - General Family Medicine 09/20/17 Unit Tender Relationship Specialty Start Date End Date Kaushik Seals MD [address] [place] [address] PCP - General Family Medicine 09/20/17 Unit Tender Relationship Specialty Start Date End Date Kaushik Seals MD [address] [place] [address] PCP - General Family Medicine 09/20/17 Unit Tender Relationship Specialty Start Date End Date Kaushik Seals MD [address] [place] [address] PCP - General Family Medicine 09/20/17 Team Status: Inactive Member Role Status Dates Dr. Kaushik Seals MD Primary Care Provider Active Dr. Diego Caruso , DO Emergency Provider Active Unit Tender Relationship Specialty Start Date End Date Kaushik Seals MD [address] [facility] [place] [address] PCP - General Family Medicine 09/20/17 Unit Tender Relationship Specialty Start Date End Date Kaushik Seals MD [address] [place] [address] PCP - General Family Medicine 09/20/17 Unit Tender Relationship Specialty Start Date End Date Kaushik Seals MD [address] [facility] [address] PCP - General Family Medicine 09/20/17 Unit Tender Relationship Specialty Start Date End Date Kaushik Seals MD [address] [place] [address] PCP - General Family Medicine 09/20/17 Unit Tender Relationship Specialty Start Date End Date Kaushik Seals MD [address] [facility] [place] [address] PCP - General Family Medicine 09/20/17 Unit Tender Relationship Specialty Start Date End Date Kaushik Seals MD [address] [place] [address] PCP - General Family Medicine 09/20/17 Unit Tender Relationship Specialty Start Date End Date Kaushik Seals MD [address] [place] [address] PCP - General Family Medicine 09/20/17 Unit Tender Relationship Specialty Start Date End Date Kaushik Seals MD [address] [place] [address] PCP - General Family Medicine 09/20/17 Unit Tender Relationship Specialty Start Date End Date Kaushik Seals MD [address] [place] [address] PCP - General Family Medicine 09/20/17 Unit Tender Relationship Specialty Start Date End Date Kaushik Seals MD [address] [place] [address] PCP - General Family Medicine 09/20/17 Unit Tender Relationship Specialty Start Date End Date Kaushik Seals MD [address] [place] [address] PCP - General Family Medicine 09/20/17 Shaye Dobbins APRN.DIRECTOR HAIR [address] [place] [address] Ash Conveyor Operator Family Medicine 07/30/24 Micky Cabezas APRN.DIRECTOR HAIR [address] [place] [address] Ash Conveyor Operator Family Medicine 08/08/24 Unit Tender Relationship Specialty Start Date End Date Kaushik Seals MD [address] [place] [address] PCP - General Family Medicine 09/20/17 Shaye Dobbins APRN.DIRECTOR HAIR [address] [place] [address] Ash Conveyor Operator Family Medicine 07/30/24 Micky Cabezas APRN.DIRECTOR HAIR [address] [place] [address] Ash Conveyor Operator Family Medicine 08/08/24 Unit Tender Relationship Specialty Start Date End Date Kaushik Seals MD [address] [place] [address] PCP - General Family Medicine 09/20/17 Shaye Dobbins SENIOR CORPORATE STRATEGY MANAGER.DIRECTOR HAIR [address] [place] [address] Ash Conveyor Operator Family Medicine 07/30/24 Micky Cabezas APRN.DIRECTOR HAIR [address] [place] [address] [facility] 08/08/24 Team Status: Active Member Role Status Dates Dr. Kaushik Seals MD Primary Care Provider Active Team Status: Inactive Member Role Status Dates Dr. Kaushik Seals MD Primary Care Provider Active Start: December 06, 2024 End: December 07, 2024 Dr. Gilberto Lorenzo , Referring Provider Active Start: December 06, 2024 End: December 07, 2024 Dr. Gilberto Lorenzo , Emergency Provider Active Start: December 06, 2024 End: December 07, 2024 Unit Tender Relationship Specialty Start Date End Date Kaushik Seals MD [address] [place] [address] PCP - General Family Medicine 09/20/17 Micky Cabezas SENIOR CORPORATE STRATEGY MANAGER.DIRECTOR HAIR [address] [place] [address] Ash Conveyor Operator Family Medicine 08/08/24 Unit Tender Relationship Specialty Start Date End Date Kaushik Seals MD [address] [place] [address] PCP - General Family Medicine 09/20/17 Micky Cabezas APRN.DIRECTOR HAIR [address] [place] [address] Ash Conveyor Operator Family Medicine 08/08/24 Unit Tender Relationship Specialty Start Date End Date Kaushik Seals MD [address] [place] [address] PCP - General Family Medicine 09/20/17 Micky Cabezas APRN.DIRECTOR HAIR [address] [place] [address] Ash Conveyor Operator Family [facility] 08/08/24 [place] [address] [place] [address] Pharmacist Pharmacy 02/05/25 Unit Tender Relationship Specialty Start Date End Date Kaushik Seals MD [address] [place] [address] PCP - General Family Medicine 09/20/17 Micky Cabezas APRN.DIRECTOR HAIR [address] [place] [address] Ash Conveyor Operator Family [facility] 08/08/24 [place] [address] [place] [address] Pharmacist Pharmacy 02/05/25 Unit Tender Relationship Specialty Start Date End Date Kaushik Seals MD [address] [facility] [address] PCP - General Family Medicine 09/20/17 Micky Cabezas APRN.DIRECTOR HAIR [address] [place] [address] Ash Conveyor Operator Family Medicine 08/08/24 [place] [address] [place] [address] Pharmacist Pharmacy 02/05/25 Unit Tender Relationship Specialty Start Date End Date Kaushik Seals MD [address] [place] [address] PCP - General Family Medicine 09/20/17 Micky Cabezas APRN.DIRECTOR HAIR [address] [place] [address] Ash Conveyor Operator Family Medicine 08/08/24 [place] [address] [place] [address] Pharmacist Pharmacy 02/05/25 Unit Tender Relationship Specialty Start Date End Date Kaushik Seals MD [address] [place] [address] PCP - General Family Medicine 09/20/17 Micky Cabezas APRN.DIRECTOR HAIR [address] [place] [address] Ash Conveyor Operator Family Medicine 08/08/24 [place] [address] [place] [address] Pharmacist Pharmacy 02/05/25 Unit Tender Relationship Specialty Start Date End Date Kaushik Seals MD [address] [place] [address] PCP - General Family Medicine 09/20/17 Micky Cabezas APRN.DIRECTOR HAIR [address] [place] [address] Ash Conveyor Operator Family [facility] 08/08/24 [place] [address] [place] [address] Pharmacist Pharmacy 02/05/25 Unit Tender Relationship Specialty Start Date End Date Kaushik Seals MD [address] [place] [address] PCP - General Family Medicine 09/20/17 Micky Cabezas APRN.DIRECTOR HAIR [address] [place] [address] Ash Conveyor Operator Family Medicine 08/08/24 [place] [address] [place] [address] Pharmacist Pharmacy 02/05/25 Unit Tender Relationship Specialty Start Date End Date Kaushik Seals MD [address] [place] [address] PCP - General Family Medicine 09/20/17 Micky Cabezas APRN.DIRECTOR HAIR [address] [place] [address] Ash Conveyor Operator Family Medicine 08/08/24 [place] [address] [place] [address] Pharmacist Pharmacy 02/05/25 Unit Tender Relationship Specialty Start Date End Date Kaushik Seals MD [address] [place] [address] PCP - General Family Medicine 09/20/17 Micky Cabezas APRN.DIRECTOR HAIR [address] [place] [address] Ash Conveyor Operator Family Medicine 08/08/24 Marky Scott, [facility] [address] [place] [address] Pharmacist Pharmacy 02/05/25 (unrecognized sect ion and content) No Status Records FoundNo Status Records FoundNo Status Records Found INFORMATION SOURCE (unrecogn ized section and content) DATE CREATED AUTHOR 12/19/2021 [facility] DATE CREATED AUTHOR AUTHOR'S ORGANIZ ATION 07/03/2025 [facility] DATE CREATED AUTHOR AUTHOR'S ORGANIZ ATION 07/05/2025 [facility] Goals (unrecognized section and content) Goals may be documented in a n alternate sectionGoals may be documented in an alternate sectionGoals may be documented in an alternate sectionGoals may be documented in an alternate section FOR RECORDS PERTAINING TO PATIENTS WHO ARE OR HAVE BEEN ENROLLED IN A CHEMICAL DEPENDENCY/SUBSTANCEABUSE PROGRAM, SOME INFORMATION MAY BE OMITTED. This clinical summary was aggregated from multiple sources. Caution should be exercised in using it in the provision of clinical care. This summary normalizes information from multiple sources, and as a consequence, information in this document may materially change the coding, format and clinical context of patient data. In addition, data may be omitted in some cases. CLINICAL DECISIONS SHOULD BE BASED ON THE PRIMARY CLINICAL RECORDS. [employer] provides no warranty or guarantee of the accuracy or completeness of information in this document.
[2025-08-15 16:43] LABS: Troponin T High Sensitivity 20 ng/L (<=22)
[2025-08-15 16:47] LABS: Hematocrit 52.9 % (40-54); Hemoglobin 17.2 g/dL (13.0-16.5); Immature Granulocytes Count 0.080 X10^3/uL (0.0-0.0); Mean Corp Hgb Conc 32.5 g/dL (32-36); Mean Corpuscular Volume 86.4 fL (80-94); Mean Platelet Vol. 10.1 fl (6.2-12.0); NRBC Flagged by Analyzer 0 % (0-5); Platelet Count 378 K/mm3 (150-450); Pro- Brain NATRIURETIC PEPTIDE 179 pg/mL (<=900); RBC Distribution Width CV 14.7 % (11.6-14.6); RBC Distribution Width SD 46.0 fl (35.1-43.9); Red Blood Count 6.12 M/mm3 (4.6-6.2); White Blood Count 16.0 K/mm3 (4.4-11.0)
[2025-08-15 16:48] LABS: Anion Gap 15 (7-18); BUN 19 mg/dL (4-19); BUN/Creat Ratio 15.4 RATIO (10-20); Calcium,Total 9.7 mg/dL (7.6-11.0); Carbon Dioxide 31.5 mmol/L (20.0-29.0); Chloride 96 mmol/L (96-106); Estimated Creatinine Clearance 93.91 ml/min (50-250); Glucose 207 mg/dL (70-99); Potassium 4.1 mmol/L (3.5-5.1)
[2025-08-15 17:00] LABS: D-Dimer Quantitative (DVT/PE) 1.84 FEU/ug/m (0.27-0.49)
--- NOTE | 2025-08-15 17:04 | CT_ITS ---
PROCEDURE: CTA CHEST W/WO CONTRAST 08/15/2025 REASON FOR EXAM: Chest pain x1 week TECHNIQUE: Procedure Code: [id number] Modality: CT Procedure: CTA CHEST W/WO CONTRAST Multiplanar Sagittal and Coronal images were obtained. 3D post processing was performed. CONTRAST: Isovue 370 VOLUME: 99 mL One or more dose reduction techniques were used (e.g., Automated exposure control, adjustment of the mA and/or kV according to patient size, use of iterative reconstruction technique). RADIATION DOSE SUMMARY: DLP: 606.74 mGycm COMPARISON: CTA chest 06/24/2025 FINDINGS: PULMONARY VESSELS: No filling defects suspicious for pulmonary arterial emboli. Normal caliber main pulmonary trunk. No evidence of right heart strain. LUNGS/PLEURA: No airspace consolidation or findings of pulmonary edema. No pneumothorax or pleural effusions. Patent central airways. Peribronchial thickening and mild subpleural reticular opacities in the bilateral lung bases suggesting interstitial fibrotic lung changes. Mild centrilobular emphysema. MEDIASTINUM: Unremarkable. No suspicious lymph node enlargement. HEART: Normal in size. No pericardial effusion. Mild coronary artery calcifications. THORACIC AORTA: Normal in course and caliber. Scant atherosclerotic calcifications. UPPER ABDOMEN: Unremarkable, as visualized. BONES: Degenerative changes of the spine with DISH. CT/CTA Chest W/WO Contrast IMPRESSION: No acute cardiopulmonary disease. No pulmonary arterial emboli. Mild centrilobular emphysema. Diffuse peribronchial thickening and bibasilar portillo bpleural reticular opacities, suggesting mild basilar predominant interstitial fibrotic lung disease. Reading Location: [id number]
[2025-08-15] MEDS: 0.9% Normal Saline (500mL Bag) 500 ML 999 ML IV (17:19)
[2025-08-15 18:31] LABS: Troponin T High Sens 2 HR 17 ng/L (<=22)
== END 2025-08-15 19:09 | disposition home or self-care (01) ==
PROVIDERS: Emergency Provider Surgery; PCP Pediatrics; Visit Provider Surgery
DX: E11.65 Type 2 diabetes mellitus with hyperglycemia (principal); J44.9 Chronic obstructive pulmonary disease, unspecified; I25.10 Atherosclerotic heart disease of native coronary artery without angina pectoris; F17.210 Nicotine dependence, cigarettes, uncomplicated; Z86.718 Personal history of other venous thrombosis and embolism; Z79.01 Long term (current) use of anticoagulants
CPT/HCPCS: 71046; 71275; 80048; 83880; 84484; 85025; 85379; 93005; 96360; 99285; Q9967; A4216